=== PATIENT | male | born 1950 | race Caucasian/White ===

== ENCOUNTER 2020-05-03 09:36 | Outpatient (REF) | payer MEDICARE, OTHER, SELFPAY ==
[2020-05-03 10:33] LABS: MANUAL DIFF FLAG NO
[2020-05-03 10:40] LABS: Basophils Absolute Auto 0.1 X10*3/uL (0.0-0.2); Basophils Percent Auto 0.9 % (0-2); Eosinophils Absolute Auto 0.1 X10*3/uL (0.0-0.4); Eosinophils Percent Auto 1.7 % (0-4); Hemoglobin 14.6 g/dl (14.0-18.0); Imm Gran Abs Auto 0.02 X10*3/uL (0.00-0.03); Imm Gran Pct Auto 0.3 % (0.0-0.4); Lymphocytes Absolute Auto 2.3 X10*3/uL (1.2-4.9); Lymphocytes Percent Auto 36.7 % (20-40); Mean Corpuscular HGB Conc 33.2 g/dl (31.0-36.0); Mean Corpuscular Hemoglobin 29.8 pg (27.0-33.0); Mean Corpuscular Volume 89.8 fL (80-98); Mean Platelet Volume 10.4 fL (9.4-12.4); Monocytes Absolute Auto 0.4 X10*3/uL (0.1-1.2); Neutrophils Absolute Auto 3.4 X10*3/uL (2.0-8.3); Neutrophils Percent Auto 53.4 % (45-73); Platelet Count 224 X10*3/uL (160-400); Red Cell Distribution Width 12.8 % (11.0-16.0); White Blood Count 6.3 X10*3/uL (4.8-10.8)
[2020-05-03 11:08] LABS: Alanine Aminotransferase 26 U/L (0-40); Albumin Level 4.5 g/dL (3.5-5.0); Alkaline Phosphatase 112 U/L (39-117); Anion Gap 13 (12-20); Aspartate Amino Transferase 24 U/L (5-37); Bilirubin Total 0.4 mg/dL (0.0-1.0); Blood Urea Nitrogen 18 mg/dL (9-16); Calcium 9.5 mg/dL (8.4-10.2); Carbon Dioxide 30 mmol/L (22-29); Chloride 106 mmol/L (96-108); Cholesterol 114 mg/dL; Estimated Glomerular Filt Rate > 60; Glucose Random 217 mg/dL (60-115); HDL Cholesterol 31 mg/dL; LDL Cholesterol Calculated 40 mg/dl; Potassium 4.9 mmol/l (3.3-5.1); Sodium 144 mmol/L (135-145); Total Protein 7.2 g/dL (6.5-8.0); Triglycerides 219 mg/dL
[2020-05-03 11:14] LABS: Estimated Average Glucose 166 mg/dL; Hemoglobin A1c % 7.4 %
[2020-05-03 11:20] LABS: Thyroid Stimulating Hormone 1.36 mIU/mL (0.32-4.0)
== END 2020-05-03 09:37 | disposition home or self-care (01) ==
LOC: HO.LAB 09:36
PROVIDERS: PCP Internal Medicine; Visit Provider Internal Medicine
DX: Z00.01 Encounter for general adult medical examination with abnormal findings (principal); E11.9 Type 2 diabetes mellitus without complications; E78.00 Pure hypercholesterolemia, unspecified; F20.1 Disorganized schizophrenia; R80.0 Isolated proteinuria
CPT/HCPCS: 36415; 80053; 80061; 83036; 84443; 85025

== ENCOUNTER 2020-08-02 08:40 | Outpatient (REF) | payer MEDICARE, OTHER, SELFPAY ==
[2020-08-02 09:46] LABS: Estimated Average Glucose 169 mg/dL; Hemoglobin A1c % 7.5 %
[2020-08-02 10:07] LABS: Alanine Aminotransferase 28 U/L (0-40); Albumin Level 4.5 g/dL (3.5-5.0); Alkaline Phosphatase 85 U/L (39-117); Anion Gap 16 (12-20); Aspartate Amino Transferase 24 U/L (5-37); Bilirubin Total 0.6 mg/dL (0.0-1.0); Blood Urea Nitrogen 21 mg/dL (9-16); Calcium 9.2 mg/dL (8.4-10.2); Carbon Dioxide 24 mmol/L (22-29); Chloride 104 mmol/L (96-108); Estimated Glomerular Filt Rate > 60; Glucose Random 238 mg/dL (60-115); Potassium 4.3 mmol/l (3.3-5.1); Sodium 140 mmol/L (135-145); Total Protein 7.1 g/dL (6.5-8.0)
== END 2020-08-02 08:41 | disposition home or self-care (01) ==
LOC: HO.LAB 08:40
PROVIDERS: PCP Internal Medicine; Visit Provider Internal Medicine
DX: R80.0 Isolated proteinuria (principal); E11.65 Type 2 diabetes mellitus with hyperglycemia; E78.00 Pure hypercholesterolemia, unspecified; F20.89 Other schizophrenia
CPT/HCPCS: 36415; 80053; 83036

== ENCOUNTER → 2020-08-07 12:53 | Outpatient (BNVA) | payer MEDICARE, OTHER, SELFPAY | PROVIDERS: PCP Internal Medicine; Referring Provider Internal Medicine; Visit Provider Internal Medicine | DX: E11.65 Type 2 diabetes mellitus with hyperglycemia (principal); E78.5 Hyperlipidemia, unspecified; I10 Essential (primary) hypertension; Z79.4 Long term (current) use of insulin | CPT/HCPCS: 82947; 99202 ==

== ENCOUNTER → 2020-08-23 08:36 | Outpatient (BNVA) | payer MEDICARE, OTHER, SELFPAY | PROVIDERS: PCP Internal Medicine; Visit Provider Internal Medicine | DX: Z13.89 Encounter for screening for other disorder (principal) | CPT/HCPCS: Q3014 ==

== ENCOUNTER → 2020-09-08 11:50 | Outpatient (BNVA) | payer MEDICARE, OTHER, SELFPAY | PROVIDERS: PCP Internal Medicine; Visit Provider Dietitian, Registered ==

== ENCOUNTER 2020-10-31 09:48 | Outpatient (REF) | payer MEDICARE, OTHER, SELFPAY ==
[2020-10-31 11:05] LABS: Estimated Average Glucose 183 mg/dL
[2020-10-31 11:13] LABS: Alanine Aminotransferase 40 U/L (0-40); Albumin Level 4.6 g/dL (3.5-5.0); Alkaline Phosphatase 98 U/L (39-117); Anion Gap 13 (12-20); Aspartate Amino Transferase 27 U/L (5-37); Bilirubin Total 0.8 mg/dL (0.0-1.0); Blood Urea Nitrogen 17 mg/dL (9-16); Calcium 9.4 mg/dL (8.4-10.2); Carbon Dioxide 30 mmol/L (22-29); Chloride 102 mmol/L (96-108); Estimated Glomerular Filt Rate > 60; Glucose Random 260 mg/dL (60-115); Potassium 4.6 mmol/L (3.3-5.1); Sodium 140 mmol/L (135-145); Total Protein 7.3 g/dL (6.5-8.0)
== END 2020-10-31 09:49 | disposition home or self-care (01) ==
LOC: HO.LAB 09:48
PROVIDERS: PCP Internal Medicine; Visit Provider Internal Medicine
DX: E11.65 Type 2 diabetes mellitus with hyperglycemia (principal); H35.52 Pigmentary retinal dystrophy; R80.0 Isolated proteinuria; Z68.28 Body mass index [BMI] 28.0-28.9, adult; Z79.4 Long term (current) use of insulin; Z71.3 Dietary counseling and surveillance
CPT/HCPCS: 36415; 80053; 83036; 97803

== ENCOUNTER → 2020-11-06 09:53 | Outpatient (BNVA) | payer MEDICARE, OTHER, SELFPAY | PROVIDERS: PCP Internal Medicine; Visit Provider Internal Medicine | DX: E11.65 Type 2 diabetes mellitus with hyperglycemia (principal); I10 Essential (primary) hypertension; E78.5 Hyperlipidemia, unspecified; E04.9 Nontoxic goiter, unspecified; Z79.4 Long term (current) use of insulin | CPT/HCPCS: 82947; 99212 ==

== ENCOUNTER → 2021-02-07 09:07 | Outpatient (BNVA) | payer MEDICARE, OTHER, SELFPAY | PROVIDERS: PCP Internal Medicine; Visit Provider Internal Medicine ==

== ENCOUNTER → 2021-04-05 09:58 | Outpatient (BNVA) | payer MEDICARE, OTHER, SELFPAY | PROVIDERS: PCP Internal Medicine; Visit Provider Internal Medicine | DX: E11.65 Type 2 diabetes mellitus with hyperglycemia (principal); E78.5 Hyperlipidemia, unspecified; I10 Essential (primary) hypertension; E04.9 Nontoxic goiter, unspecified; Z79.4 Long term (current) use of insulin | CPT/HCPCS: 82947; 83036; 99212 ==

== ENCOUNTER 2021-04-17 09:20 | Outpatient (REF) | payer MEDICARE, OTHER, SELFPAY ==
--- NOTE | ~2021-04-17 | US_ITS ---
EXAMINATION: US THYROID CLINICAL INFORMATION: Goiter. Vitamin D deficiency COMPARISON: None TECHNIQUE: Linear transducer grayscale and color Doppler examination with attention to the region of the thyroid. Exam is limited due to low position of the thyroid gland. FINDINGS: SIZE: Measurements of the thyroid lobes and nodules are given in sagittal, anteroposterior and transverse dimensions respectively. Right Thyroid Lobe: 4.8 x 2.4 x 1.4 cm, volume 8.4 mL. Parenchyma: The gland echotexture is homogeneous. Thyroid vascularity is normal. Left Thyroid Lobe: 4.6 x 2.3 x 1.5 cm, volume 8.3 mL. Parenchyma: The gland echotexture is homogeneous. Thyroid vascularity is normal. Isthmus: 0.4 cm in maximum AP dimension. Estimated total number of nodules greater than or equal to 1 cm: 0. Industrial Staff Nurse nodules are described as follows: NODES: No lymphadenopathy is seen in the tissue surrounding the thyroid gland. US/US thyroid IMPRESSION: Limited but unremarkable exam.
== END 2021-04-17 09:21 | disposition home or self-care (01) ==
LOC: HO.US 09:20
PROVIDERS: PCP Internal Medicine; Visit Provider Internal Medicine
DX: E04.9 Nontoxic goiter, unspecified (principal); E55.9 Vitamin D deficiency, unspecified
CPT/HCPCS: 76536

== ENCOUNTER 2021-05-01 11:07 | Outpatient (REF) | payer MEDICARE, OTHER, SELFPAY ==
[2021-05-01 11:28] LABS: MANUAL DIFF FLAG NO
[2021-05-01 12:10] LABS: Basophils Absolute Auto 0.1 X10*3/uL (0.0-0.2); Eosinophils Absolute Auto 0.1 X10*3/uL (0.0-0.4); Eosinophils Percent Auto 1.8 % (0-4); Hematocrit 45.4 % (42-52); Hemoglobin 15.1 g/dl (14.0-18.0); Imm Gran Abs Auto 0.02 X10*3/uL (0.00-0.03); Imm Gran Pct Auto 0.3 % (0.0-0.4); Lymphocytes Absolute Auto 2.3 X10*3/uL (1.2-4.9); Lymphocytes Percent Auto 31.8 % (20-40); Mean Corpuscular HGB Conc 33.3 g/dl (31.0-36.0); Mean Corpuscular Hemoglobin 29.5 pg (27.0-33.0); Mean Corpuscular Volume 88.8 fL (80-98); Mean Platelet Volume 10.4 fL (9.4-12.4); Monocytes Absolute Auto 0.6 X10*3/uL (0.1-1.2); Monocytes Percent Auto 8.1 % (2-11); Neutrophils Absolute Auto 4.1 X10*3/uL (2.0-8.3); Platelet Count 220 X10*3/uL (160-400); Red Blood Count 5.11 X10*6/uL (4.60-5.80); Red Cell Distribution Width 12.5 % (11.0-16.0); White Blood Count 7.2 X10*3/uL (4.8-10.8)
[2021-05-01 12:21] LABS: Estimated Average Glucose 180 mg/dL; Hemoglobin A1c % 7.9 %
[2021-05-01 12:39] LABS: Alanine Aminotransferase 28 U/L (0-40); Albumin Level 4.8 g/dL (3.5-5.0); Alkaline Phosphatase 103 U/L (39-117); Anion Gap 17 (12-20); Aspartate Amino Transferase 25 U/L (5-37); Bilirubin Total 0.7 mg/dL (0.0-1.0); Blood Urea Nitrogen 15 mg/dL (9-16); Calcium 9.9 mg/dL (8.4-10.2); Carbon Dioxide 26 mmol/L (22-29); Chloride 102 mmol/L (96-108); Estimated Glomerular Filt Rate > 60; Glucose Random 168 mg/dL (60-115); Potassium 4.8 mmol/L (3.3-5.1); Sodium 140 mmol/L (135-145); Total Protein 7.6 g/dL (6.5-8.0)
[2021-05-01 13:00] LABS: Vitamin D 25-OH Total 13.4 ng/mL (>30)
[2021-05-01 14:21] LABS: Creatinine Urine 130.04 mg/dL; Microalbum/Creatinine Ratio Ur 23.8 ug/mg cr
[2021-05-02 12:16] LABS: LDL Cholesterol Direct 82 mg/dL (<100)
== END 2021-05-01 11:08 | disposition home or self-care (01) ==
LOC: HO.LAB 11:07
PROVIDERS: Internal Medicine; PCP Internal Medicine; Visit Provider Internal Medicine
DX: Z00.01 Encounter for general adult medical examination with abnormal findings (principal); E11.40 Type 2 diabetes mellitus with diabetic neuropathy, unspecified; E11.65 Type 2 diabetes mellitus with hyperglycemia; E78.00 Pure hypercholesterolemia, unspecified; H54.8 Legal blindness, as defined in USA; E55.9 Vitamin D deficiency, unspecified
CPT/HCPCS: 36415; 80053; 82043; 82306; 83036; 83721; 85025

== ENCOUNTER 2021-08-06 09:46 | Outpatient (REF) | payer MEDICARE, OTHER, SELFPAY ==
[2021-08-06 11:16] LABS: Estimated Average Glucose 160 mg/dL; Hemoglobin A1C 213.7082 umol/L; Hemoglobin A1c % 7.2 %
[2021-08-06 11:26] LABS: Alanine Aminotransferase 27 U/L (0-40); Albumin Level 4.5 g/dL (3.5-5.0); Alkaline Phosphatase 103 U/L (39-117); Anion Gap 13 (12-20); Aspartate Amino Transferase 24 U/L (5-37); Bilirubin Total 0.4 mg/dL (0.0-1.0); Blood Urea Nitrogen 16 mg/dL (9-16); Calcium 9.7 mg/dL (8.4-10.2); Carbon Dioxide 26 mmol/L (22-29); Chloride 107 mmol/L (96-108); Estimated Glomerular Filt Rate > 60; Glucose Random 135 mg/dL (60-115); Potassium 4.1 mmol/L (3.3-5.1); Sodium 142 mmol/L (135-145); Total Protein 7.2 g/dL (6.5-8.0)
== END 2021-08-06 09:47 | disposition home or self-care (01) ==
LOC: HO.LAB 09:46
PROVIDERS: Absent Provider Internal Medicine; PCP Internal Medicine; Visit Provider Internal Medicine
DX: E11.9 Type 2 diabetes mellitus without complications (principal); E78.00 Pure hypercholesterolemia, unspecified; H54.8 Legal blindness, as defined in USA; R80.0 Isolated proteinuria
CPT/HCPCS: 36415; 80053; 83036

== ENCOUNTER → 2021-08-09 09:13 | Outpatient (BNVA) | payer MEDICARE, OTHER, SELFPAY | PROVIDERS: PCP Internal Medicine; Visit Provider Nurse Practitioner Gerontology | DX: E11.65 Type 2 diabetes mellitus with hyperglycemia (principal); E78.5 Hyperlipidemia, unspecified; E55.9 Vitamin D deficiency, unspecified; I10 Essential (primary) hypertension; B35.3 Tinea pedis; Z79.4 Long term (current) use of insulin; Z79.84 Long term (current) use of oral hypoglycemic drugs | CPT/HCPCS: 82947; 99212 ==

== ENCOUNTER 2021-11-13 09:20 | Outpatient (REF) | payer MEDICARE, OTHER, SELFPAY ==
[2021-11-13 10:31] LABS: Estimated Average Glucose 140 mg/dL; Hemoglobin A1c % 6.5 %
[2021-11-13 11:06] LABS: Alanine Aminotransferase 24 U/L (0-40); Albumin Level 4.6 g/dL (3.5-5.0); Alkaline Phosphatase 87 U/L (39-117); Anion Gap 13 (12-20); Aspartate Amino Transferase 20 U/L (5-37); Bilirubin Total 0.8 mg/dL (0.0-1.0); Blood Urea Nitrogen 23 mg/dL (9-16); Calcium 9.7 mg/dL (8.4-10.2); Carbon Dioxide 28 mmol/L (22-29); Chloride 105 mmol/L (96-108); Estimated Glomerular Filt Rate > 60; Glucose Random 174 mg/dL (60-115); Potassium 4.4 mmol/L (3.3-5.1); Sodium 142 mmol/L (135-145); Total Protein 7.3 g/dL (6.5-8.0)
[2021-11-13 11:08] LABS: Vitamin D 25-OH Total 45.7 ng/mL (>30)
[2021-11-13 11:53] LABS: Prostate Specific Antigen 7.44 ng/mL (<0.05-4.0)
== END 2021-11-13 09:21 | disposition home or self-care (01) ==
LOC: HO.LAB 09:20
PROVIDERS: Absent Provider Internal Medicine; PCP Internal Medicine; Visit Provider Nurse Practitioner Gerontology
DX: Z12.5 Encounter for screening for malignant neoplasm of prostate (principal); E11.65 Type 2 diabetes mellitus with hyperglycemia; E55.9 Vitamin D deficiency, unspecified; E78.00 Pure hypercholesterolemia, unspecified; I10 Essential (primary) hypertension; R35.1 Nocturia; Z79.4 Long term (current) use of insulin
CPT/HCPCS: 36415; 80053; 82306; 83036; 84153

== ENCOUNTER → 2021-12-06 07:18 | Outpatient (BNVA) | payer MEDICARE, OTHER, SELFPAY | PROVIDERS: PCP Internal Medicine; Visit Provider Nurse Practitioner Gerontology | DX: E11.65 Type 2 diabetes mellitus with hyperglycemia (principal); E78.5 Hyperlipidemia, unspecified; E55.9 Vitamin D deficiency, unspecified; I10 Essential (primary) hypertension; Z79.4 Long term (current) use of insulin; Z79.84 Long term (current) use of oral hypoglycemic drugs | CPT/HCPCS: 82947; 99212 ==

== ENCOUNTER → 2022-03-08 08:47 | Outpatient (BNVA) | payer MEDICARE, SELFPAY | PROVIDERS: PCP Internal Medicine; Visit Provider Urology | DX: N32.0 Bladder-neck obstruction (principal); N40.1 Benign prostatic hyperplasia with lower urinary tract symptoms; N13.8 Other obstructive and reflux uropathy; R33.9 Retention of urine, unspecified; R97.20 Elevated prostate specific antigen [PSA] | CPT/HCPCS: 99202 ==

== ENCOUNTER 2022-04-30 07:36 | Day surgery (SDC) | payer MEDICARE, SELFPAY ==
--- NOTE | 2022-04-29 08:30 | HO.ANESPROP2 ---
Documented by User: Sonia Vaughn NP 04/29/22 08:31 HPI - Anesthesia Eval Consult details Narrative: 71yo M for Colonoscopy PMFSH Active Problems Active Problems: All Active Problems (Updated 03/08/22 @ 09:22 by Kike Eid MD) Bladder outlet obstruction (Acute) Elevated PSA (Acute) Tinea pedis of left foot (Acute) Goiter (Acute) Vitamin D deficiency (Acute) HLD (hyperlipidemia) (Acute) HTN (hypertension) (Acute) T2DM (type 2 diabetes mellitus) (Acute) Past Medical History Medical History Goiter HLD (hyperlipidemia) HTN (hypertension) Legally blind Schizophrenia T2DM (type 2 diabetes mellitus) Vitamin D deficiency Family History Family History Father Blindness Mother No problems noted. Surgical History Surgical History History of amputation of finger Social History Social History Alcohol intake: former Patient Tobacco Use Status: Former Tobacco user Quit Date: >3 yrs ago Cigarette Packs Per Day: 3 Years Smoked: 40 Use of substances other than those prescribed or required for medical reasons: No Are you DNR?: No Advance Directives: No Advance Directives Information Provided: Yes Meds Allergies Allergy/AdvReac Type Severity Reaction Status Date / Time No Known Allergies Allergy Verified 04/30/22 08:03 [No Known Allergies*] Home Medications Medication Instructions Recorded Confirmed Last Taken Type atorvastatin 40 mg tablet 40 mg PO DAILY 08/07/20 04/30/22 Unknown History escitalopram oxalate 10 mg tablet 10 mg PO DAILY 08/07/20 04/30/22 Unknown History lancets 30 gauge #100 ea 08/07/20 04/30/22 Unknown History lisinopril 2.5 mg tablet 2.5 mg PO DAILY 08/07/20 04/30/22 04/30/22 07:00 History metformin 1,000 mg tablet 1,000 mg PO BID 08/07/20 04/30/22 Unknown History pen needle, diabetic 32 gauge x #50 ea 08/07/20 04/30/22 Unknown History quetiapine 25 mg tablet 25 mg PO BEDTIME 08/07/20 04/30/22 Unknown History aspirin 81 mg tablet,delayed 81 mg PO DAILY 08/23/20 04/30/22 Unknown History release blood sugar diagnostic #10 ea 08/23/20 04/30/22 Unknown History blood-glucose meter #1 ea 08/23/20 04/30/22 Unknown History insulin glargine 100 unit/mL (3 24 unit subcut BEDTIME 08/09/21 04/30/22 Unknown History mL) subcutaneous pen losartan 25 mg tablet 25 mg PO DAILY 03/07/22 04/30/22 04/30/22 07:00 History Exam Exam Date and Time: April 29, 2022829 Pertinent Lab Results Pertinent Lab Results: Laboratory Tests 11/13/21 09:43 Sodium 142 Potassium 4.4 Chloride 105 Carbon Dioxide 28 BUN 23 H Creatinine 0.99 Assessment and Plan Assessment Anesthesia Assessment: Chart Reviewed Documented by User: Alba Villasenor MD 04/30/22 09:05 [facility] Past Medical History Medical History Goiter HLD (hyperlipidemia) HTN (hypertension) Legally blind Schizophrenia T2DM (type 2 diabetes mellitus) Vitamin D deficiency Functional capacity: independent ambulation Family History Family History Father Blindness Mother No problems noted. Family history of problems with anesthesia: No Surgical History Surgical History History of amputation of finger History of Problems with Anesthesia: No Social History Social History Alcohol intake: former Patient Tobacco Use Status: Former Tobacco user Quit Date: >3 yrs ago Cigarette Packs Per Day: 3 Years Smoked: 40 Use of substances other than those prescribed or required for medical reasons: No Are you DNR?: No Advance Directives: No Advance Directives Information Provided: Yes Meds Allergies Allergy/AdvReac Type Severity Reaction Status Date / Time No Known Allergies Allergy Verified 04/30/22 08:03 [No Known Allergies*] Home Medications Medication Instructions Recorded Confirmed Last Taken Type atorvastatin 40 mg tablet 40 mg PO DAILY 08/07/20 04/30/22 Unknown History escitalopram oxalate 10 mg tablet 10 mg PO DAILY 08/07/20 04/30/22 Unknown History lancets 30 gauge #100 ea 08/07/20 04/30/22 Unknown History lisinopril 2.5 mg tablet 2.5 mg PO DAILY 08/07/20 04/30/22 04/30/22 07:00 History metformin 1,000 mg tablet 1,000 mg PO BID 08/07/20 04/30/22 Unknown History pen needle, diabetic 32 gauge x #50 ea 08/07/20 04/30/22 Unknown History quetiapine 25 mg tablet 25 mg PO BEDTIME 08/07/20 04/30/22 Unknown History aspirin 81 mg tablet,delayed 81 mg PO DAILY 08/23/20 04/30/22 Unknown History release blood sugar diagnostic #10 ea 08/23/20 04/30/22 Unknown History blood-glucose meter #1 ea 08/23/20 04/30/22 Unknown History insulin glargine 100 unit/mL (3 24 unit subcut BEDTIME 08/09/21 04/30/22 Unknown History mL) subcutaneous pen losartan 25 mg tablet 25 mg PO DAILY 03/07/22 04/30/22 04/30/22 07:00 History Exam Airway Mallampati Class: III TM Dist: >3cm Neck ROM: Full Heart: RRR Lungs: cTA Assessment and Plan Final Anesthetic Review Family History of Problems with Anesthesia: No History of Problems with Anesthesia: No NPO: Yes ASA Class: II Final Preanesthetic Review: No Changes in Pt Med Stat, Meds/Allgs Chart Reviewed, Consent Obtained/Reviewed and Anes Risks/Benef Reviewed Patient Risk: Low Procedure Risk: Low Anesthetic Plan Anesthetic Plan: MAC: Disposition: Standard PACU
[2022-04-30 07:59] VITALS: BMI 28.6
[2022-04-30 08:36] VITALS: BP 105/71; PULSE 88; RESP 18; TEMP 36.8; O2SAT 99
[2022-04-30] MEDS: Lactated Ringers 1,000 ML 100 ML IVCONT (08:37)
[2022-04-30 08:38] LABS: Glucose, Whole Blood 104 mg/dL (60-115)
--- NOTE | 2022-04-30 09:06 | MHC.SHP ---
Pre-Procedural Eval Section A Date of Service: 04/30/22 Section B Chief Complaint: screening Details of Present Illness: screening Relevant Family History (Specify if Yes): No Relevant Social History: None Present Medications: see Short Stay Collaborative assessment Medical History: No relevant PMH History of Previous Operations: No relevant previous surgery Allergies: Allergies Allergy/AdvReac Type Severity Reaction Status Date / Time No Known Allergies Allergy Verified 04/30/22 08:03 [No Known Allergies*] Review of Systems Sugical H&P ROS: Negative: Constitution, Cardiovascular, Respiratory, Neurological, Psychiatric, Hem-Onc, Allergic/Immunologic, Gastrointestinal, Genitourinary, Musculoskeletal, Integumentary, Endocrine and Eyes/Ears/Nose/Throat Exam Surgical H&P Exam: Normal: HEENT, Normal: Heart, Normal: Lungs, Normal: Extremities, Normal: Abdomen, Normal: Skin and Normal: Neurological Plan Diagnosis/Plan: Unchanged I have reviewed the history and physical and performed a pertinent physical examination on my patient. No changes have occurred unless specified.
[2022-04-30 09:32] VITALS: BP 108/68; PULSE 83; RESP 16; TEMP 36.4; O2SAT 100
--- NOTE | 2022-04-30 09:36 | P.BOP_ITS ---
Brief Operative Note Date of Service: 04/30/22 Pre-op diagnosis: screening Post-op diagnosis: same Procedure: colonoscopy Surgeon: Chavez Cuellar Anesthesia: MAC Was an Automation Test Developer used for this Procedure?: No Estimated blood loss (mL): 2 Pathology: other Condition: stable Disposition: PACU
[2022-04-30 09:47] VITALS: BP 121/65; PULSE 85; RESP 18; TEMP 36.4; O2SAT 99
--- NOTE | 2022-04-30 10:06 | HO.POSTANES ---
Post Anesthesia Evaluation Post Anesthesia Evaluation Vital Signs: Vital Signs Temp Pulse Resp BP Pulse Ox O2 Del Method 04/30/22 09:47 97.5 F 85 18 121/65 99 Room Air 04/30/22 09:32 97.5 F 83 16 108/68 100 Room Air 04/30/22 08:36 98.3 F 88 18 105/71 99 Room Air Anesthesia: Monitored Mental Status: Awake (W) Pain Control: Satisfactory Nausea/Vomiting: None Hydration: Adequate Anesthesia-Related Issues: No Anes. Related Issues
--- NOTE | 2022-04-30 11:37 | OP_ITS ---
SURGEON: Chavez Cuellar MD INDICATIONS: Colon cancer screening. PREOPERATIVE DIAGNOSIS: POSTOPERATIVE DIAGNOSIS: PROCEDURE PERFORMED: Colonoscopy to the cecum with biopsy. ESTIMATED BLOOD LOSS: COMPLICATIONS: ANESTHESIA: Monitored anesthesia care. ASSISTANTS: SPECIMENS: DESCRIPTION OF PROCEDURE: History and physical performed. The procedure was performed on April 30, 2022. The risks and benefits of the procedure were explained to the patient. Informed consent was obtained. The patient was placed in the left lateral decubitus position. A digital rectal exam was performed and was found to be normal. The Olympus pediatric video colonoscope was introduced into the rectum and advanced to the cecum without difficulty. The cecum was identified by transillumination, palpation, and identification of ileocecal valve. Examination was performed. The scope was removed. He tolerated the procedure well and was taken to the recovery area in stable condition. FINDINGS: There was a large amount of liquid stool and undigested food material in the colon, which limited the sensitivity examination for detection of small polyps, particularly in the cecum, sigmoid colon, and rectum. Two polyps were identified, 1 in the right colon just above the ileocecal valve and 1 at the hepatic flexure. Both measured less than 5 mm, were removed with biopsy forceps. No other polyps were identified. Retroflexed examination was limited by retained stool. IMPRESSION: 1. Colon polyps. 2. Limited procedure due to poor prep. RECOMMENDATION: 1. Follow up the biopsy results. 2. Consider repeat colonoscopy in 6 to 12 months with a 2 day prep. MD KATIA Hays/NOHEMY / [id number]
== END 2022-04-30 10:55 | disposition home or self-care (01) ==
PROVIDERS: PCP Internal Medicine; Visit Provider Internal Medicine Gastroenterology
PROC: 0DJD8ZZ Inspection of Lower Intestinal Tract, Via Natural or Artificial Opening Endoscopic (ICD-10-PCS; CPT 45378; principal; 2022-04-30 08:50)
DX: Z12.11 Encounter for screening for malignant neoplasm of colon (principal); D12.2 Benign neoplasm of ascending colon; D12.3 Benign neoplasm of transverse colon; K59.00 Constipation, unspecified; I10 Essential (primary) hypertension; E11.9 Type 2 diabetes mellitus without complications; E55.9 Vitamin D deficiency, unspecified; N40.0 Benign prostatic hyperplasia without lower urinary tract symptoms; F03.90 Unspecified dementia, unspecified severity, without behavioral disturbance, psychotic disturbance, mood disturbance, and anxiety; E78.00 Pure hypercholesterolemia, unspecified; H35.52 Pigmentary retinal dystrophy; Z79.4 Long term (current) use of insulin; Z88.8 Allergy status to other drugs, medicaments and biological substances; Z87.891 Personal history of nicotine dependence
CPT/HCPCS: 45380; 82947; 88305

== ENCOUNTER 2022-05-14 09:54 | Outpatient (REF) | payer MEDICARE, SELFPAY ==
[2022-05-14 10:15] LABS: MANUAL DIFF FLAG NO
[2022-05-14 11:40] LABS: Alanine Aminotransferase 20 U/L (0-40); Albumin Level 4.7 g/dL (3.5-5.0); Alkaline Phosphatase 79 U/L (39-117); Anion Gap 18 (12-20); Aspartate Amino Transferase 24 U/L (5-37); Bilirubin Total 0.8 mg/dL (0.0-1.0); Blood Urea Nitrogen 16 mg/dL (9-16); Calcium 9.7 mg/dL (8.4-10.2); Carbon Dioxide 27 mmol/L (22-29); Chloride 101 mmol/L (96-108); Cholesterol 122 mg/dL; Estimated Glomerular Filt Rate > 60; Glucose Random 97 mg/dL (60-115); HDL Cholesterol 34 mg/dL; LDL Cholesterol Calculated 65 mg/dl; Potassium 4.6 mmol/L (3.3-5.1); Sodium 141 mmol/L (135-145); Total Protein 7.3 g/dL (6.5-8.0); Triglycerides 116 mg/dL
[2022-05-14 11:47] LABS: Basophils Absolute Auto 0.1 X10*3/uL (0.0-0.2); Basophils Percent Auto 0.8 % (0-2); Eosinophils Absolute Auto 0.1 X10*3/uL (0.0-0.4); Eosinophils Percent Auto 1.2 % (0-4); Hemoglobin 15.5 g/dl (14.0-18.0); Imm Gran Abs Auto 0.03 X10*3/uL (0.00-0.03); Imm Gran Pct Auto 0.4 % (0.0-0.4); Lymphocytes Absolute Auto 2.4 X10*3/uL (1.2-4.9); Lymphocytes Percent Auto 32.7 % (20-40); Mean Corpuscular HGB Conc 33.7 g/dl (31.0-36.0); Mean Corpuscular Hemoglobin 29.5 pg (27.0-33.0); Mean Corpuscular Volume 87.5 fL (80.0-98.0); Mean Platelet Volume 10.6 fL (9.4-12.4); Monocytes Absolute Auto 0.5 X10*3/uL (0.1-1.2); Monocytes Percent Auto 6.1 % (2-11); Neutrophils Absolute Auto 4.3 x10*3/uL (2.0-8.3); Neutrophils Percent Auto 58.8 % (45-73); Platelet Count 245 X10*3/uL (160-400); Red Blood Count 5.26 X10*6/uL (4.60-5.80); Red Cell Distribution Width 12.4 % (11.0-16.0); White Blood Count 7.4 X10*3/uL (4.8-10.8)
[2022-05-14 12:07] LABS: Prostate Specific Antigen 4.28 ng/mL (<0.05-4.0)
[2022-05-14 12:30] LABS: Estimated Average Glucose 148 mg/dL; Hemoglobin A1c % 6.8 %
[2022-05-14 12:43] LABS: Creatinine Urine 94.95 mg/dL; Microalbum/Creatinine Ratio Ur 9.4 ug/mg cr
[2022-05-14 12:48] LABS: Vitamin B12 353 pg/mL (200-900)
== END 2022-05-14 09:55 | disposition home or self-care (01) ==
LOC: HO.LAB 09:54
PROVIDERS: Absent Provider Internal Medicine; PCP Internal Medicine; Visit Provider Urology
DX: E11.9 Type 2 diabetes mellitus without complications (principal); E78.00 Pure hypercholesterolemia, unspecified; G47.00 Insomnia, unspecified; I10 Essential (primary) hypertension; R97.20 Elevated prostate specific antigen [PSA]; Z12.5 Encounter for screening for malignant neoplasm of prostate
CPT/HCPCS: 36415; 80053; 80061; 82043; 82607; 83036; 84153; 85025

== ENCOUNTER → 2022-07-10 11:03 | Outpatient (BNVA) | payer MEDICARE, SELFPAY | PROVIDERS: PCP Internal Medicine; Visit Provider Urology | DX: R97.20 Elevated prostate specific antigen [PSA] (principal); N40.1 Benign prostatic hyperplasia with lower urinary tract symptoms; N13.8 Other obstructive and reflux uropathy; R33.8 Other retention of urine | CPT/HCPCS: 99212 ==

== ENCOUNTER 2022-08-02 09:27 | Outpatient (REF) | payer MEDICARE, SELFPAY ==
[2022-08-02 10:46] LABS: Alanine Aminotransferase 22 U/L (0-40); Albumin Level 4.7 g/dL (3.5-5.0); Alkaline Phosphatase 85 U/L (39-117); Anion Gap 16 (12-20); Aspartate Amino Transferase 23 U/L (5-37); Bilirubin Total 0.5 mg/dL (0.0-1.0); Blood Urea Nitrogen 16 mg/dL (9-16); Calcium 9.7 mg/dL (8.4-10.2); Carbon Dioxide 26 mmol/L (22-29); Chloride 104 mmol/L (96-108); Estimated Glomerular Filt Rate > 60; Glucose Random 131 mg/dL (60-115); Potassium 4.5 mmol/L (3.3-5.1); Sodium 141 mmol/L (135-145); Total Protein 7.3 g/dL (6.5-8.0)
[2022-08-02 11:00] LABS: Estimated Average Glucose 154 mg/dL
== END 2022-08-02 09:28 | disposition home or self-care (01) ==
LOC: HO.LAB 09:27
PROVIDERS: PCP Internal Medicine; Visit Provider Internal Medicine
DX: Z00.00 Encounter for general adult medical examination without abnormal findings (principal); N40.1 Benign prostatic hyperplasia with lower urinary tract symptoms; E11.9 Type 2 diabetes mellitus without complications; E78.00 Pure hypercholesterolemia, unspecified
CPT/HCPCS: 36415; 80053; 83036

== ENCOUNTER 2022-10-08 10:32 | Day surgery (SDC) | payer MEDICARE, SELFPAY ==
--- NOTE | 2022-10-07 10:40 | HO.ANESPROP2 ---
Documented by User: Sonia Vaughn NP 10/07/22 10:41 HPI - Anesthesia Eval Consult details Narrative: 72yo M for Colonoscopy s/p colo 04/2022 with TIVA PMFSH Active Problems Active Problems: All Active Problems (Updated 08/27/22 @ 14:12 by Taylor Modi, RN) Tinea pedis of left foot (Acute) Elevated PSA (Acute) Bladder outlet obstruction (Acute) Goiter (Acute) Vitamin D deficiency (Acute) HLD (hyperlipidemia) (Acute) HTN (hypertension) (Acute) T2DM (type 2 diabetes mellitus) (Acute) Past Medical History Medical History (Updated 08/27/22 @ 14:12 by Taylor Modi RN) BPH (benign prostatic hyperplasia) Dementia Depression Goiter HLD (hyperlipidemia) HTN (hypertension) Legally blind Retinitis pigmentosa Rib fracture Schizophrenia T2DM (type 2 diabetes mellitus) Vitamin D deficiency Family History Family History Father Blindness Mother No problems noted. Family history of problems with anesthesia: No Surgical History Surgical History History of amputation of finger History of Problems with Anesthesia: No Social History Social History Alcohol intake: former Patient Tobacco Use Status: Former Tobacco user Quit Date: >3 yrs ago Cigarette Packs Per Day: 3 Years Smoked: 40 Use of substances other than those prescribed or required for medical reasons: No Are you DNR?: No Advance Directives: No Advance Directives Information Provided: Yes Meds Allergies Allergy/AdvReac Type Severity Reaction Status Date / Time No Known Allergies Allergy Verified 07/10/22 11:19 [No Known Allergies*] Home Medications Medication Instructions Recorded Confirmed Last Taken Type atorvastatin 40 mg tablet 40 mg PO DAILY 08/07/20 10/08/22 Unknown History escitalopram oxalate 10 mg tablet 10 mg PO DAILY 08/07/20 10/08/22 Unknown History lancets 30 gauge #100 ea 08/07/20 08/28/22 Unknown History lisinopril 2.5 mg tablet 2.5 mg PO DAILY 08/07/20 10/08/22 04/30/22 07:00 History metformin 1,000 mg tablet 1,000 mg PO BID 08/07/20 10/08/22 Unknown History pen needle, diabetic 32 gauge x #50 ea 08/07/20 08/28/22 Unknown History quetiapine 25 mg tablet 25 mg PO BEDTIME 08/07/20 10/08/22 Unknown History aspirin 81 mg tablet,delayed 81 mg PO DAILY 08/23/20 10/08/22 04/25/22 History release blood sugar diagnostic #10 ea 08/23/20 08/28/22 Unknown History blood-glucose meter #1 ea 08/23/20 08/28/22 Unknown History insulin glargine 100 unit/mL (3 24 unit subcut BEDTIME 08/09/21 10/08/22 Unknown History mL) subcutaneous pen losartan 25 mg tablet 25 mg PO DAILY 03/07/22 10/08/22 10/08/22 History cholecalciferol (vitamin D3) 25 25 mcg PO DAILY 07/10/22 10/08/22 Unknown History mcg (1,000 unit) tablet Exam Exam Date and Time: October 07, 2022 1040 Pertinent Lab Results Pertinent Lab Results: Laboratory Tests 05/14/22 08/02/22 10:14 09:46 WBC 7.4 Hgb 15.5 Hct 46.0 Plt Count 245 Sodium 141 Potassium 4.5 Chloride 104 Carbon Dioxide 26 BUN 16 Creatinine 0.95 Assessment and Plan Assessment Anesthesia Assessment: Chart Reviewed Final Anesthetic Review Family History of Problems with Anesthesia: No History of Problems with Anesthesia: No Documented by User: Baron Tracy MD 10/08/22 12:02 [facility] Past Medical History Medical History (Updated 08/27/22 @ 14:12 by Taylor Modi RN) BPH (benign prostatic hyperplasia) Dementia Depression Goiter HLD (hyperlipidemia) HTN (hypertension) Legally blind Retinitis pigmentosa Rib fracture Schizophrenia T2DM (type 2 diabetes mellitus) Vitamin D deficiency Family History Family History Father Blindness Mother No problems noted. Family history of problems with anesthesia: No Surgical History Surgical History History of amputation of finger History of Problems with Anesthesia: No Social History Social History Alcohol intake: former Patient Tobacco Use Status: Former Tobacco user Quit Date: >3 yrs ago Cigarette Packs Per Day: 3 Years Smoked: 40 Use of substances other than those prescribed or required for medical reasons: No Are you DNR?: No Advance Directives: No Advance Directives Information Provided: Yes Meds Allergies Allergy/AdvReac Type Severity Reaction Status Date / Time No Known Allergies Allergy Verified 07/10/22 11:19 [No Known Allergies*] Home Medications Medication Instructions Recorded Confirmed Last Taken Type atorvastatin 40 mg tablet 40 mg PO DAILY 08/07/20 10/08/22 Unknown History escitalopram oxalate 10 mg tablet 10 mg PO DAILY 08/07/20 10/08/22 Unknown History lancets 30 gauge #100 ea 08/07/20 08/28/22 Unknown History lisinopril 2.5 mg tablet 2.5 mg PO DAILY 08/07/20 10/08/22 04/30/22 07:00 History metformin 1,000 mg tablet 1,000 mg PO BID 08/07/20 10/08/22 Unknown History pen needle, diabetic 32 gauge x #50 ea 08/07/20 08/28/22 Unknown History quetiapine 25 mg tablet 25 mg PO BEDTIME 08/07/20 10/08/22 Unknown History aspirin 81 mg tablet,delayed 81 mg PO DAILY 08/23/20 10/08/22 04/25/22 History release blood sugar diagnostic #10 ea 08/23/20 08/28/22 Unknown History blood-glucose meter #1 ea 08/23/20 08/28/22 Unknown History insulin glargine 100 unit/mL (3 24 unit subcut BEDTIME 08/09/21 10/08/22 Unknown History mL) subcutaneous pen losartan 25 mg tablet 25 mg PO DAILY 03/07/22 10/08/22 10/08/22 History cholecalciferol (vitamin D3) 25 25 mcg PO DAILY 07/10/22 10/08/22 Unknown History mcg (1,000 unit) tablet Exam Airway Mallampati Class: II TM Dist: >3cm Neck ROM: Full Denture: Upper and Lower Heart: ok Lungs: ok Assessment and Plan Assessment Anesthesia Assessment: Anesthesia Plan Discussed and Chart Reviewed Final Anesthetic Review Family History of Problems with Anesthesia: No History of Problems with Anesthesia: No NPO: Yes ASA Class: IV Final Preanesthetic Review: No Changes in Pt Med Stat, Meds/Allgs Chart Reviewed, Consent Obtained/Reviewed and Anes Risks/Benef Reviewed Patient Risk: High Procedure Risk: Low Anesthetic Plan Anesthetic Plan: MAC: and Agree w/ Assess. and Plan Disposition: Standard PACU
[2022-10-08 10:45] VITALS: BMI 26.4
[2022-10-08 11:03] VITALS: BP 131/72; PULSE 89; RESP 16; TEMP 36.7; O2SAT 95
[2022-10-08] MEDS: Lactated Ringers 1,000 ML 100 ML IVCONT (11:17)
[2022-10-08 11:19] LABS: Glucose, Whole Blood 126 mg/dL (60-115)
--- NOTE | 2022-10-08 11:39 | MHC.SHP ---
Pre-Procedural Eval Section A Date of Service: 10/08/22 Section B Chief Complaint: screening Details of Present Illness: see H&P exam in Oct was limited by poor prep. repeat today with 2 day prep. Relevant Family History (Specify if Yes): No Relevant Social History: None Present Medications: see Short Stay Collaborative assessment Medical History: No relevant PMH History of Previous Operations: No relevant previous surgery Allergies: Allergies Allergy/AdvReac Type Severity Reaction Status Date / Time No Known Allergies Allergy Verified 07/10/22 11:19 [No Known Allergies*] Review of Systems Sugical H&P ROS: Negative: Constitution, Cardiovascular, Respiratory, Neurological, Psychiatric, Hem-Onc, Allergic/Immunologic, Gastrointestinal, Genitourinary, Musculoskeletal, Integumentary, Endocrine and Eyes/Ears/Nose/Throat Exam Surgical H&P Exam: Normal: HEENT, Normal: Heart, Normal: Lungs, Normal: Extremities, Normal: Abdomen, Normal: Skin and Normal: Neurological Plan Diagnosis/Plan: Unchanged I have reviewed the history and physical and performed a pertinent physical examination on my patient. No changes have occurred unless specified. Time Spent With Patient Time: Total time managing care of this patient today ____ minutes.
--- NOTE | 2022-10-08 12:17 | P.BOP_ITS ---
Brief Operative Note Date of Service: 10/08/22 Pre-op diagnosis: screening Post-op diagnosis: same Procedure: colonoscopy Surgeon: Chavez Cuellar Anesthesia: MAC Was an Pharmaceutical Representative used for this Procedure?: No Estimated blood loss (mL): 5 Pathology: other Condition: stable Disposition: PACU
[2022-10-08 12:22] VITALS: BP 72/45; PULSE 70; RESP 18; TEMP 36.1; O2SAT 93
[2022-10-08 12:37] VITALS: BP 93/54; PULSE 76; RESP 16; O2SAT 94
[2022-10-08 12:48] VITALS: BP 108/64; PULSE 70; RESP 17; TEMP 36.1; O2SAT 95
--- NOTE | 2022-10-08 22:42 | OP_ITS ---
SURGEON: Chavez Cuellar MD INDICATIONS: Colon cancer screening and inadequate prep in the last colonoscopy. This prep required a 2-day bowel prep. PREOPERATIVE DIAGNOSIS: POSTOPERATIVE DIAGNOSIS: PROCEDURE PERFORMED: ESTIMATED BLOOD LOSS: COMPLICATIONS: ANESTHESIA: ASSISTANTS: SPECIMENS: PROCEDURE: Colonoscopy to the terminal ileum with biopsy. PROCEDURE DESCRIPTION: A history and physical performed. The procedure was performed on 10/08/2022. The risks and benefits of the procedure were explained to the patient's healthcare proxy and informed consent was obtained. The patient was placed in the left lateral decubitus position. A digital rectal exam was performed and was found to be normal. The Olympus pediatric video colonoscope was introduced into the rectum and advanced to the cecum without difficulty. The cecum was identified by transillumination, palpation, and identification of ileocecal valve. Examination was performed. The scope was removed. He tolerated the procedure well and was returned to recovery area in stable condition. FINDINGS: The terminal ileum was examined and appeared normal. The visualized colonic mucosa was normal. The quality of the prep was good. There was some liquid stool left, which was washed and suctioned. Overall, the procedure was markedly improved from the patient's previous colonoscopy in the fall. Three polyps were identified and removed with biopsy forceps, all measured less than 5 mm. These were located at 65 cm. No other polyps were identified. Retroflexed examination was normal. IMPRESSION: Colon polyps. RECOMMENDATION: Follow up the biopsy results. MD KATIA Hays/CHARLIEL / [id number]
== END 2022-10-08 13:42 | disposition home or self-care (01) ==
PROVIDERS: PCP Internal Medicine; Visit Provider Internal Medicine Gastroenterology
PROC: 0DJD8ZZ Inspection of Lower Intestinal Tract, Via Natural or Artificial Opening Endoscopic (ICD-10-PCS; CPT 45378; principal; 2022-10-08 11:10)
DX: Z12.11 Encounter for screening for malignant neoplasm of colon (principal); D12.4 Benign neoplasm of descending colon; N40.0 Benign prostatic hyperplasia without lower urinary tract symptoms; E11.9 Type 2 diabetes mellitus without complications; E78.00 Pure hypercholesterolemia, unspecified; I10 Essential (primary) hypertension; H35.52 Pigmentary retinal dystrophy; F03.90 Unspecified dementia, unspecified severity, without behavioral disturbance, psychotic disturbance, mood disturbance, and anxiety; Z79.4 Long term (current) use of insulin; Z79.82 Long term (current) use of aspirin; Z79.899 Other long term (current) drug therapy; Z88.8 Allergy status to other drugs, medicaments and biological substances; Z87.891 Personal history of nicotine dependence
CPT/HCPCS: 45380; 82947; 88305

== ENCOUNTER 2022-10-28 10:08 | Outpatient (REF) | payer MEDICARE, SELFPAY ==
[2022-10-28 11:56] LABS: Estimated Average Glucose 154 mg/dL
[2022-10-28 12:44] LABS: Alanine Aminotransferase 23 U/L (0-40); Albumin Level 4.4 g/dL (3.5-5.0); Alkaline Phosphatase 90 U/L (39-117); Anion Gap 16 (12-20); Aspartate Amino Transferase 20 U/L (5-37); Bilirubin Total 0.8 mg/dL (0.0-1.0); Blood Urea Nitrogen 17 mg/dL (9-16); Calcium 9.3 mg/dL (8.4-10.2); Carbon Dioxide 26 mmol/L (22-29); Chloride 103 mmol/L (96-108); Estimated Glomerular Filt Rate > 60; Glucose Random 128 mg/dL (60-115); Potassium 4.5 mmol/L (3.3-5.1); Sodium 140 mmol/L (135-145); Total Protein 6.7 g/dL (6.5-8.0)
== END 2022-10-28 10:09 | disposition home or self-care (01) ==
LOC: HO.LAB 10:08
PROVIDERS: PCP Internal Medicine; Visit Provider Internal Medicine
DX: E11.9 Type 2 diabetes mellitus without complications (principal); E78.00 Pure hypercholesterolemia, unspecified; F20.1 Disorganized schizophrenia; H35.52 Pigmentary retinal dystrophy
CPT/HCPCS: 36415; 80053; 83036

== ENCOUNTER 2023-01-02 10:29 | Outpatient (REF) | payer MEDICARE, SELFPAY ==
[2023-01-02 11:46] LABS: Prostate Specific Antigen 4.99 ng/mL (<0.05-4.0)
== END 2023-01-02 10:30 | disposition home or self-care (01) ==
LOC: HO.LAB 10:29
PROVIDERS: PCP Internal Medicine; Visit Provider Urology
DX: R97.20 Elevated prostate specific antigen [PSA] (principal); Z12.5 Encounter for screening for malignant neoplasm of prostate
CPT/HCPCS: 36415; 84153

== ENCOUNTER → 2023-01-08 14:23 | Outpatient (BNVA) | payer MEDICARE, SELFPAY | PROVIDERS: PCP Internal Medicine; Visit Provider Urology | DX: R97.20 Elevated prostate specific antigen [PSA] (principal) | CPT/HCPCS: Q3014 ==

== ENCOUNTER 2023-01-30 10:19 | Outpatient (REF) | payer MEDICARE, SELFPAY ==
[2023-01-30 11:19] LABS: Alanine Aminotransferase 29 U/L (0-40); Albumin Level 4.3 g/dL (3.5-5.0); Alkaline Phosphatase 89 U/L (39-117); Anion Gap 13 (12-20); Aspartate Amino Transferase 22 U/L (5-37); Bilirubin Total 0.8 mg/dL (0.0-1.0); Blood Urea Nitrogen 15 mg/dL (9-16); Calcium 9.8 mg/dL (8.4-10.2); Carbon Dioxide 29 mmol/L (22-29); Chloride 105 mmol/L (96-108); Estimated Glomerular Filt Rate > 60; Glucose Random 147 mg/dL (60-115); Potassium 4.7 mmol/L (3.3-5.1); Sodium 142 mmol/L (135-145); Total Protein 7.3 g/dL (6.5-8.0)
== END 2023-01-30 10:20 | disposition home or self-care (01) ==
LOC: HO.LAB 10:19
PROVIDERS: PCP Internal Medicine; Visit Provider Internal Medicine
DX: E11.40 Type 2 diabetes mellitus with diabetic neuropathy, unspecified (principal); E78.00 Pure hypercholesterolemia, unspecified; F20.1 Disorganized schizophrenia; H35.52 Pigmentary retinal dystrophy
CPT/HCPCS: 36415; 80053; 83036

== ENCOUNTER 2023-02-13 07:29 | Outpatient (REF) | payer MEDICARE, OTHER, SELFPAY ==
[2023-02-13 07:43] VITALS: BMI 28.4
[2023-02-13 07:44] VITALS: BP 134/61; PULSE 88; RESP 16; TEMP 36.4; O2SAT 97
--- NOTE | 2023-02-13 08:27 | W.PM.OPN ---
Operative Note Operative Note Date of Service: 02/13/23 Narrative: Preoperative diagnosis: Elevated PSA Postoperative diagnosis: Elevated PSA Procedure: 1. transrectal ultrasound measurement of prostate 2. transrectal ultrasound-guided pudendal nerve block 3. transrectal ultrasound-guided prostate biopsy 12 core Surgeon: Dr. Kike Eid Anesthetic: Local Indications for procedure: Elevated PSA 4.99 on finasteride Procedure: After informed consent was verified, the patient was brought into the procedure area and lay left-hand side down on the table. Patient identity confirmed. Perioperative antibiotics confirmed. Safety pause time out performed. BROOKS performed to dilate rectal sphincter - firm Iodine 15cc with Gel was placed per rectum Ultrasound probe was placed per rectum The prostate was measured in 3 dimensions Total volume equals 20 gm No cystic structures were noted Calcifications were noted at the surgical margin The prostate was otherwise homogeneous in nature An ultrasound-guided pudendal nerve block was performed using 10 cc of 1% lidocaine. 8 cc was placed at the base and 2 cc of the apex. A 12 core biopsy was performed with 6 cores each side. Two cores were taken at the apex, mid and base. Cores were spaced between lateral and medial. He tolerated the procedure well. Was able to ambulate to bathroom after 5 minutes. Printed instructions regarding antibiotic use and common side effects such as low-grade temperature, potential infection and bleeding were given Pathology: 12 core prostate biopsy.
[2023-02-13 08:30] VITALS: BP 132/65; PULSE 85; RESP 16; O2SAT 95
== END 2023-02-13 07:30 | disposition home or self-care (01) ==
LOC: HO.MS 07:29
PROVIDERS: PCP Internal Medicine; Visit Provider Urology
PROC: (CPT 55700; principal; 2023-02-13 08:00)
DX: C61 Malignant neoplasm of prostate (principal); R97.20 Elevated prostate specific antigen [PSA]
CPT/HCPCS: 55700; 76942; 88305; 88344

== ENCOUNTER → 2023-02-13 07:29 | Outpatient (BNV) | payer MEDICARE, SELFPAY | PROVIDERS: PCP Internal Medicine; Visit Provider Urology | DX: R97.20 Elevated prostate specific antigen [PSA] (principal) | CPT/HCPCS: 55700; 76942 ==

== ENCOUNTER 2023-02-19 08:16 | Outpatient (RCR) | payer MEDICARE, SELFPAY | END 2023-02-20 16:02 | disposition home or self-care (01) | LOC: HO.WCC 08:16 | PROVIDERS: PCP Internal Medicine; Visit Provider Surgery | DX: Z09 Encounter for follow-up examination after completed treatment for conditions other than malignant neoplasm (principal); E11.9 Type 2 diabetes mellitus without complications; I10 Essential (primary) hypertension; F03.90 Unspecified dementia, unspecified severity, without behavioral disturbance, psychotic disturbance, mood disturbance, and anxiety; Z79.4 Long term (current) use of insulin; Z79.84 Long term (current) use of oral hypoglycemic drugs; Z79.899 Other long term (current) drug therapy; Z87.891 Personal history of nicotine dependence; Z86.31 Personal history of diabetic foot ulcer | CPT/HCPCS: 99212 ==

== ENCOUNTER 2023-02-25 11:31 | Outpatient (AMB) | payer MEDICARE, SELFPAY ==
--- NOTE | 2023-02-25 11:31 | A.OFFVIS_ITS ---
Intake Intake Visit Reasons: Biopsy results Intake Note: Patient is present for Telephone biopsy result Urology Med: Finasteride Antibiotic Allergy: none Blood Thinner: aspirin [facility] Allergies No Known Allergies [No Known Allergies*] Allergy (Verified 02/25/23 11:32) HPI HPI Comments History of Present Illness Details Shari pleasant male. [place] speaker. He is a patient Dr. Burden. He is seen for the following urologic conditions - prostate cancer - lower urinary tract symptoms [place] translation provided by qualified manager medical affairs Telemedicine Evaluation 15 min Consultation DoxDediServe Oscar Video attempted Prostate cancer shown on biopsy Recommend complete staging with bone scan and prostate MRI Given age and other comorbidities would recommend external beam radiation with 6 month course of hormones Will organized GnRH injection and imaging Prostate Cancer - grade group 3, multi core Diagnosis of 02/16 Dr. Eid PSA at diagnosis 5.0 on finasteride pT1c TRUS 20gm [place] score:? 7 (4+3) (right base medial), 7 (3+4) (left mid medial and lateral, left apex lateral, right mid medial and lateral, right apex medial), 6 (3+3) (left base lateral, left apex medial, right base lateral) Tumor quantitation: Number cores positive:10 Total number of cores: 14 % of tissue involved: 40% (Cores 15-80%) Periprostatic fat inv.:Not identified Seminal vesicle inv.:Not identified Perineural inv.: Present Lymphovascular invasion: Not identified Elevated PSA PSA 11/16 7.44, 05/18 4.3, 01/17 5.0 Background diabetes PFSH Medical History BPH (benign prostatic hyperplasia) Dementia Depression Goiter HLD (hyperlipidemia) HTN (hypertension) Legally blind Retinitis pigmentosa Rib fracture Schizophrenia T2DM (type 2 diabetes mellitus) Vitamin D deficiency Surgical History History of amputation of finger Family History Father Blindness Mother No problems noted. Social History Alcohol intake: former Patient Tobacco Use Status: Former Tobacco user Quit Date: >3 yrs ago Cigarette Packs Per Day: 3 Years Smoked: 40 Review of Systems Const All systems reviewed & are unremarkable except as noted in HPI and below Reports no additional complaints Resp Reports no additional complaints GI Reports no additional complaints Reports as per HPI Musc Reports no additional complaints Physical Exam Telemedicine evaluation Appropriate responses Regular breathing rate and rhythm HEENT Head: Yes normal to inspection Ears: hearing grossly normal bilaterally Eyes General: appearance normal, both eyes and all related structures Neck Neck: Yes normal visual inspection Chest Chest palpation & inspection: normal inspection of the chest Resp Effort & Inspection: normal respiratory effort and able to speak in complete sentences Assessment & Plan Assessment & Plan (1) Prostate cancer: Code(s): C61 - Malignant neoplasm of prostate Plan Imaging 3 week follow-up GnRH Orders: Orders MR pelvis wo/w con 2 Weeks C61 - Malignant neoplasm of prostate NM bone scan whole body Today C61 - Malignant neoplasm of prostate, C79.51 - Secondary malignant neoplasm of bone Patient Instructions: Imaging studies, laboratory and physical exam results were discussed and reviewed in detail. No major barriers to patient understanding were identified. An opportunity to ask questions regarding the treatment plan was provided. All questions were answered. The patient expressed understanding and agreement with the above treatment plan. The patient is aware they should contact our office by phone for worsening of their current condition or the appearance of new urologic symptoms. Compliance is encouraged with any medications and followup testing that is ordered. It is a privilege to participate in the urologic care of your patient. If you have any questions or concerns regarding treatment for the above conditions, or other urologic issues, please do not hesitate to contact me. The office telephone contact is [phone]. This note is constructed using voice recognition software. While every effort has been made to ensure accuracy museum exhibit designer errors may have been included. Yours sincerely, Dr Kike Eid MD, [facility] - Urology Providers of Expert, Compassionate Care for the Genitourinary System Telehealth Telehealth Location of provider rendering services: practice address Location of patient: address on file Patient Identification confirmed using: Name, : Yes Telehealth method: video Patient verbally consented to treatment: Yes Patient verbally consented to billing insurance company: Yes Patient informed of any privacy concerns related to visit: Yes Coding Level of Care Code Tele Est Pt Level 4 (86389) Diagnoses Prostate cancer C61
== END 2023-02-25 12:08 | disposition home or self-care (01) ==
LOC: HO.HUSH 11:31
PROVIDERS: PCP Internal Medicine; Visit Provider Urology
DX: C61 Malignant neoplasm of prostate (principal)
CPT/HCPCS: 99213

== ENCOUNTER → 2023-02-25 11:31 | Outpatient (BNVA) | payer MEDICARE, SELFPAY | PROVIDERS: PCP Internal Medicine; Visit Provider Urology | DX: C61 Malignant neoplasm of prostate (principal) | CPT/HCPCS: Q3014 ==

== ENCOUNTER 2023-04-18 14:56 | Outpatient (AMB) | payer MEDICARE, SELFPAY ==
--- NOTE | 2023-04-18 15:05 | A.OFFVIS_ITS ---
Intake Intake Visit Reasons: GnRH/MRI/bone scan(Eligard approved) Intake Note: pt here for eligard injection meds - finasteride, levofloxacin [facility] Allergies - NKA Education Technician Required: No Cream Separator Operator: Cream Separator Operator Present Allergies No Known Allergies [No Known Allergies*] Allergy (Verified 04/18/23 15:10) Medication List - Last Reconciled 04/18/23 by Kike Eid MD aspirin 81 mg PO DAILY atorvastatin 40 mg PO DAILY blood sugar diagnostic As directed blood-glucose meter As directed cholecalciferol (vitamin D3) 50 mcg PO DAILY 30 days cholecalciferol (vitamin D3) 25 mcg PO DAILY clotrimazole 1% (Athlete's Foot (clotrimazole)) 1 appl topical BID escitalopram oxalate 10 mg PO DAILY finasteride 5 mg PO DAILY 90 days flash glucose scanning reader (FreeStyle Radha 2 [place]) As directed flash glucose sensor (FreeStyle Radha 2 Sensor kit) As directed every 2 weeks insulin glargine 24 units subcut BEDTIME insulin lispro 6 units for breakfast, 8 units for lunch and dinner subcut 3 times a day; lancets As directed levofloxacin 500 mg PO daily 3 days lisinopril 2.5 mg PO DAILY losartan 25 mg PO DAILY metformin 1,000 mg PO BID pen needle, diabetic As directed quetiapine 25 mg PO BEDTIME quetiapine 50 mg PO BEDTIME HPI HPI Comments History of Present Illness Details Shari pleasant male. Mexican speaker. He is a patient Dr. Burden. He is seen for the following urologic conditions - prostate cancer - lower urinary tract symptoms Mexican translation provided by qualified medical authorization specialist Discussion regarding MRI No evidence of extracapsular extension or ness disease GnRH today Radiology oncology referral Would be suitable candidate for [facility] Prostate Cancer - 02/16 - Grade Group 3, multi core PSA 4.99 Diagnosis of 02/16 Dr. Eid PSA at diagnosis 5.0 on finasteride pT1c TRUS 20gm Rl score:? 7 (4+3) (right base medial), 7 (3+4) (left mid medial and lateral, left apex lateral, right mid medial and lateral, right apex medial), 6 (3+3) (left base lateral, left apex medial, right base lateral) Tumor quantitation: Number cores positive:10 Total number of cores: 14 % of tissue involved: 40% (Cores 15-80%) Periprostatic fat inv.:Not identified Seminal vesicle inv.:Not identified Perineural inv.: Present Lymphovascular invasion: Not identified MRI: Small prostate, motion artifact, heterogeneous. No evidence of ness disease Elevated PSA PSA 11/16 7.44, 05/18 4.3, 01/17 5.0 Background diabetes PFSH Medical History Rib fracture Retinitis pigmentosa Dementia Depression BPH (benign prostatic hyperplasia) Goiter Vitamin D deficiency Schizophrenia Legally blind HLD (hyperlipidemia) HTN (hypertension) T2DM (type 2 diabetes mellitus) Surgical History History of amputation of finger Family History Father Blindness Mother No problems noted. Social History Alcohol intake: former Patient Tobacco Use Status: Former Tobacco user Quit Date: >3 yrs ago Cigarette Packs Per Day: 3 Years Smoked: 40 Review of Systems Const Denies chills and Denies fever(s) Card Reports no additional complaints and Denies syncope Resp Denies cough GI Denies abdominal pain and Denies heartburn Reports as per HPI and Denies change in libido Neuro Denies syncope Psych Denies change in libido Endo Denies change in libido Physical Exam Const General: cooperative, healthy appearing, comfortable and no acute distress Orientation/consciousness: patient oriented x3 HEENT Face and sinus: Yes normal facial exam Mouth: moist mucous membranes Neck Neck: Yes normal visual inspection, Yes full ROM and Yes trachea midline Chest Chest palpation & inspection: normal inspection of the chest Resp Effort & Inspection: normal respiratory effort, able to speak in complete sentences and no respiratory distress GI Inspection: Yes normal to inspection Back/Spine/Pelvis Cervical Spine: normal cervical lordosis Thoracic/Lumbar Spine: thoracic and lumbar spine normal to inspection Skin General skin exam: no rashes or lesions noted Neuro General: patient oriented x3, gait normal, tone normal and moves all extremities Extrem General: Yes normal to inspection and Yes capillary refill normal Office Meds Eligard (6 month) 45 mg (6 month) subcutaneous syringe Performing Provider: Kike Eid MD Performing Location: [facility] [place] [facility] Administered by: Antwan Garcia LPN on 04/18/23 15:29 Dose Route Admin Location Dispensed Lot Number Expiration Date [facility] Vice President Of Contracts 45 mg subcut left arm 45 mg [id number] 07/28/24 85341-721-24 [employer]. Assessment & Plan Assessment & Plan (1) Prostate cancer: Code(s): C61 - Malignant neoplasm of prostate Plan Radiation oncology referral Four week follow-up Possible [facility] Orders: Orders AMB Leuprolide Injection - Practice Supplied Today C61 - Malignant neoplasm of prostate Referrals Radiation Oncology Referral C61 - Malignant neoplasm of prostate Medications: New Eligard (6 month) (leuprolide acetate (6 month)) 45 mg subcut ONCE 1 ea 0RF NS C61 - Malignant neoplasm of prostate Patient Instructions: Imaging studies, laboratory and physical exam results were discussed and reviewed in detail. No major barriers to patient understanding were identified. An opportunity to ask questions regarding the treatment plan was provided. All questions were answered. The patient expressed understanding and agreement with the above treatment plan. The patient is aware they should contact our office by phone for worsening of their current condition or the appearance of new urologic symptoms. Compliance is encouraged with any medications and followup testing that is ordered. It is a privilege to participate in the urologic care of your patient. If you have any questions or concerns regarding treatment for the above conditions, or other urologic issues, please do not hesitate to contact me. The office telephone contact is [phone]. This note is constructed using voice recognition software. While every effort has been made to ensure accuracy manager publishing errors may have been included. Yours sincerely, Dr Kike Eid MD, [facility] - Urology Providers of Expert, Compassionate Care for the Genitourinary System Coding Level of Care Code Est Pt Level 4 (34179) Diagnoses Prostate cancer C61
== END 2023-04-18 15:39 | disposition home or self-care (01) ==
PROVIDERS: PCP Internal Medicine; Visit Provider Urology
DX: C61 Malignant neoplasm of prostate (principal)
CPT/HCPCS: 99214

== ENCOUNTER → 2023-04-18 14:56 | Outpatient (BNVA) | payer MEDICARE, OTHER, SELFPAY | PROVIDERS: PCP Internal Medicine; Visit Provider Urology | DX: C61 Malignant neoplasm of prostate (principal) | CPT/HCPCS: 96402; 99212; J9217 ==

== ENCOUNTER → 2023-04-24 10:37 | Outpatient (REF) | payer MEDICARE, OTHER, SELFPAY ==
--- NOTE | ~2023-04-24 | NM_ITS ---
EXAMINATION: NM BONE SCAN OF THE WHOLE BODY CLINICAL INFORMATION: Malignant neoplasm of prostate. COMPARISON: MRI of the pelvis done on 03/06/2023. TECHNIQUE: Multiple gamma scintillation camera images of the whole body were performed 2.5 hours following the intravenous administration of 30 mCi Tc-99m MDP. The radiotracer was injected through left hand superficial vein. The patient's bladder was full at the time of the examination however, was not able to empty the bladder. FINDINGS: In the head, no suspicious focal lesion. In the thoracic cage and upper extremities, linear increased radiotracer activity is present within the left mid posterior eighth rib. Focal increased radiotracer activity is also present within the left upper posterior hemithoracic ribs. The findings are concerning for metastatic disease. Increased radiotracer activities at both shoulder and sternoclavicular joint likely represent arthritic changes. In the spine, multifocal increased radiotracer activities are present at the lower cervical, and mid to lower thoracic and the entire lumbar spine, may represent degenerative spondylosis versus metastasis or combination thereof. In the pelvis, no discrete focal abnormality. In the lower extremities, no discrete focal abnormality. No other definite bony abnormalities are noted. The urinary bladder and faint visualization of both kidneys are noted. NM/NM bone scan whole body IMPRESSION: Multifocal tracer avid disease involving the left thoracic cage suspicious for metastatic disease. Multifocal tracer avidity involving the spine may represent degenerative spondylosis versus metastases or combination thereof. A follow-up PSMA PET/CT study may be considered for further full detail evaluation, if clinically appropriate.
== END ==
LOC: HO.NUCMED 10:37
PROVIDERS: PCP Internal Medicine; Visit Provider Urology
DX: C61 Malignant neoplasm of prostate (principal); C79.51 Secondary malignant neoplasm of bone
CPT/HCPCS: 78306; A9503

== ENCOUNTER 2023-04-30 10:21 | Outpatient (REF) | payer MEDICARE, SELFPAY ==
[2023-04-30 11:46] LABS: Estimated Average Glucose 143 mg/dL; Hemoglobin A1c % 6.6 % (<6.0)
[2023-04-30 12:13] LABS: Alanine Aminotransferase 28 U/L (0-40); Albumin Level 4.5 g/dL (3.5-5.0); Alkaline Phosphatase 84 U/L (39-117); Anion Gap 15 (12-20); Aspartate Amino Transferase 25 U/L (5-37); Bilirubin Total 0.7 mg/dL (0.0-1.0); Blood Urea Nitrogen 17 mg/dL (9-16); Calcium 9.8 mg/dL (8.4-10.2); Carbon Dioxide 25 mmol/L (22-29); Chloride 104 mmol/L (96-108); Estimated Glomerular Filt Rate > 60; Glucose Random 120 mg/dL (60-115); Potassium 4.3 mmol/L (3.3-5.1); Sodium 140 mmol/L (135-145); Total Protein 7.2 g/dL (6.5-8.0)
== END 2023-04-30 10:22 | disposition home or self-care (01) ==
LOC: HO.LAB 10:21
PROVIDERS: PCP Internal Medicine; Visit Provider Internal Medicine
DX: E11.40 Type 2 diabetes mellitus with diabetic neuropathy, unspecified (principal); E11.65 Type 2 diabetes mellitus with hyperglycemia; S90.821S Blister (nonthermal), right foot, sequela
CPT/HCPCS: 36415; 80053; 83036

== ENCOUNTER 2023-05-13 13:18 | Outpatient (AMB) | payer MEDICARE, SELFPAY ==
--- NOTE | 2023-05-13 13:18 | A.OFFVIS_ITS ---
Intake Intake Visit Reasons: 4W Bone Scan(Set)-solomon islander Intake Note: Patient is present today with his Son Myles for Telephone Bone Scan: Urology Med: Finasteride Antibiotic Allergy: none Blood Thinner: aspirin [facility] Manager Metrology Required: No Accompanied by: SonRafat Bueno Allergies No Known Allergies [No Known Allergies*] Allergy (Verified 05/13/23 13:20) Medication List - Last Reconciled 05/13/23 by Kike Eid MD aspirin 81 mg PO DAILY atorvastatin 40 mg PO DAILY blood sugar diagnostic As directed blood-glucose meter As directed cholecalciferol (vitamin D3) 50 mcg PO DAILY 30 days cholecalciferol (vitamin D3) 25 mcg PO DAILY clotrimazole 1% (Athlete's Foot (clotrimazole)) 1 appl topical BID escitalopram oxalate 10 mg PO DAILY finasteride 5 mg PO DAILY 90 days flash glucose scanning reader (FreeStyle Radha 2 [place]) As directed flash glucose sensor (FreeStyle Radha 2 Sensor kit) As directed every 2 weeks insulin glargine 24 units subcut BEDTIME insulin lispro 6 units for breakfast, 8 units for lunch and dinner subcut 3 times a day; lancets As directed levofloxacin 500 mg PO daily 3 days lisinopril 2.5 mg PO DAILY losartan 25 mg PO DAILY metformin 1,000 mg PO BID pen needle, diabetic As directed quetiapine 25 mg PO BEDTIME quetiapine 50 mg PO BEDTIME HPI HPI Comments History of Present Illness Details Shari pleasant male. Jamaican speaker. He is a patient Dr. Burden. He is seen for the following urologic conditions - prostate cancer - lower urinary tract symptoms Jamaican translation provided by qualified manager of medical Telemedicine Evaluation 15 min Consultation Doximity Oscar Video attempted Bone Scan with question of positive spinal disease - recommend PET-CT with PSMA Has Radiology oncology referral Would be suitable candidate for [facility] if PET-CT negative or will need hormone therapy There is data on treatment of primary lesion in metastatic setting - Maximal Androgen Blockade (GnRH, AA, abiraterone) Prostate Cancer - 02/16 - Grade Group 3, multi core PSA 4.99 GnRH 04/02/23 Diagnosis of 02/16 Dr. Eid PSA at diagnosis 5.0 on finasteride pT1c TRUS 20gm Rl score:? 7 (4+3) (right base medial), 7 (3+4) (left mid medial and lateral, left apex lateral, right mid medial and lateral, right apex medial), 6 (3+3) (left base lateral, left apex medial, right base lateral) Tumor quantitation: Number cores positive:10 Total number of cores: 14 % of tissue involved: 40% (Cores 15-80%) Periprostatic fat inv.:Not identified Seminal vesicle inv.:Not identified Perineural inv.: Present Lymphovascular invasion: Not identified MRI: Small prostate, motion artifact, heterogeneous. No evidence of ness disease Bone Scan: Multifocal tracer avid disease involving the left thoracic cage suspicious for metastatic disease Needs PET-CT with PSMA to evaluate spinal disease Elevated PSA PSA 11/16 7.44, 05/18 4.3, 01/17 5.0 Background diabetes PFSH Medical History Rib fracture Retinitis pigmentosa Dementia Depression BPH (benign prostatic hyperplasia) Goiter Vitamin D deficiency Schizophrenia Legally blind HLD (hyperlipidemia) HTN (hypertension) T2DM (type 2 diabetes mellitus) Surgical History History of amputation of finger Family History Father Blindness Mother No problems noted. Social History Alcohol intake: former Patient Tobacco Use Status: Former Tobacco user Quit Date: >3 yrs ago Cigarette Packs Per Day: 3 Years Smoked: 40 Review of Systems Const All systems reviewed & are unremarkable except as noted in HPI and below Reports no additional complaints Resp Reports no additional complaints GI Reports no additional complaints Reports as per HPI Musc Reports no additional complaints Physical Exam Telemedicine evaluation Appropriate responses Regular breathing rate and rhythm HEENT Head: Yes normal to inspection Ears: hearing grossly normal bilaterally Eyes General: appearance normal, both eyes and all related structures Neck Neck: Yes normal visual inspection Chest Chest palpation & inspection: normal inspection of the chest Resp Effort & Inspection: normal respiratory effort and able to speak in complete sentences Assessment & Plan Assessment & Plan (1) Prostate cancer: Code(s): C61 - Malignant neoplasm of prostate Plan PET-CT with follow-up Orders: Orders PET CT fusion skull to thigh Today C61 - Malignant neoplasm of prostate Patient Instructions: Imaging studies, laboratory and physical exam results were discussed and reviewed in detail. No major barriers to patient understanding were identified. An opportunity to ask questions regarding the treatment plan was provided. All questions were answered. The patient expressed understanding and agreement with the above treatment plan. The patient is aware they should contact our office by phone for worsening of their current condition or the appearance of new urologic symptoms. Compliance is encouraged with any medications and followup testing that is ordered. It is a privilege to participate in the urologic care of your patient. If you have any questions or concerns regarding treatment for the above conditions, or other urologic issues, please do not hesitate to contact me. The office telephone contact is [phone]. This note is constructed using voice recognition software. While every effort has been made to ensure accuracy design architect errors may have been included. Yours sincerely, Dr Kike Eid MD, [facility] - Urology Providers of Expert, Compassionate Care for the Genitourinary System Telehealth Telehealth Location of provider rendering services: practice address Location of patient: address on file Patient Identification confirmed using: Name, : Yes Telehealth method: video Patient verbally consented to treatment: Yes Patient verbally consented to billing insurance company: Yes Patient informed of any privacy concerns related to visit: Yes Coding Level of Care Code Tele Est Pt Level 4 (21547) Diagnoses Prostate cancer C61
== END 2023-05-13 15:10 | disposition home or self-care (01) ==
LOC: HO.HUSH 13:18
PROVIDERS: PCP Internal Medicine; Visit Provider Urology
DX: C61 Malignant neoplasm of prostate (principal)
CPT/HCPCS: 99214

== ENCOUNTER → 2023-05-13 13:18 | Outpatient (BNVA) | payer MEDICARE, SELFPAY | PROVIDERS: PCP Internal Medicine; Visit Provider Urology ==

== ENCOUNTER 2023-06-02 18:50 | Emergency (ER) | payer MEDICARE, OTHER, SELFPAY ==
--- NOTE | ~2023-06-02 | XR_ITS ---
EXAMINATION: XR PELVIS CLINICAL INFORMATION: Pain. COMPARISON: None available. TECHNIQUE: AP view of the pelvis. FINDINGS: The bone mineralization is within normal limits. There is minimal hip degenerative change with mild subchondral sclerosis and mild osteophyte formation. There is no acute fracture. There is lower lumbar disc degenerative change. XR/XR pelvis 1-2V IMPRESSION: No acute osseous abnormality.
--- NOTE | ~2023-06-02 | XR_ITS ---
EXAMINATION: XR LUMBOSACRAL SPINE CLINICAL INFORMATION: Pain COMPARISON: None available. TECHNIQUE: Three views of the lumbosacral spine. FINDINGS: Extensive multilevel degenerative changes are seen with osteophyte formation. I do not appreciate any acute superimposed fracture or spondylolisthesis. Vertebral body heights and disc heights are preserved. Bowel gas pattern unremarkable. XR/XR lumbar spine 2-3V IMPRESSION: Extensive multilevel degenerative changes but no acute fracture or spondylolisthesis.
[2023-06-02 20:28] VITALS: BP 162/75; PULSE 83; RESP 18; TEMP 36.6; O2SAT 98; BMI 29.9
--- NOTE | 2023-06-02 20:29 | ED_ITS ---
HPI - General Adult General Chief complaint: Back Pain/Injury Stated complaint: lower right back pain unable to walk Time Seen by Provider: 06/02/23 22:19 Related Data Home Medications Medication Instructions Recorded Confirmed atorvastatin 40 mg tablet 40 mg PO DAILY 08/07/20 05/13/23 escitalopram oxalate 10 mg tablet 10 mg PO DAILY 08/07/20 05/13/23 lancets 30 gauge #100 ea 08/07/20 05/13/23 lisinopril 2.5 mg tablet 2.5 mg PO DAILY 08/07/20 05/13/23 metformin 1,000 mg tablet 1,000 mg PO BID 08/07/20 05/13/23 pen needle, diabetic 32 gauge x #50 ea 08/07/20 05/13/23 quetiapine 25 mg tablet 25 mg PO BEDTIME 08/07/20 05/13/23 aspirin 81 mg tablet,delayed 81 mg PO DAILY 08/23/20 05/13/23 release blood sugar diagnostic #10 ea 08/23/20 05/13/23 blood-glucose meter #1 ea 08/23/20 05/13/23 insulin glargine 100 unit/mL (3 24 unit subcut BEDTIME 08/09/21 05/13/23 mL) subcutaneous pen losartan 25 mg tablet 25 mg PO DAILY 03/07/22 05/13/23 cholecalciferol (vitamin D3) 25 25 mcg PO DAILY 07/10/22 05/13/23 mcg (1,000 unit) tablet quetiapine 50 mg tablet 50 mg PO BEDTIME 02/25/23 05/13/23 Previous Rx's Medication Instructions Recorded clotrimazole 1 % topical cream 1 appl topical BID #15 grams 08/09/21 (Athlete's Foot (clotrimazole)) insulin lispro 100 unit/mL See Rx Instructions subcut TID #15 08/09/21 subcutaneous pen mL flash glucose scanning reader #1 ea 12/06/21 (FreeStyle Radha 2 [place]) flash glucose sensor (FreeStyle #2 ea 12/06/21 Radha 2 Sensor kit) cholecalciferol (vitamin D3) 50 50 mcg PO DAILY 30 days #30 caps 06/11/22 mcg (2,000 unit) capsule levofloxacin 500 mg tablet 500 mg PO daily 3 days #3 tabs 01/08/23 finasteride 5 mg tablet 5 mg PO DAILY 90 days #90 tabs 01/13/23 morphine 15 mg immediate release 15 mg PO Q8H PRN pain #15 tabs 06/02/23 tablet Allergies Allergy/AdvReac Type Severity Reaction Status Date / Time No Known Allergies Allergy Verified 05/13/23 13:20 [No Known Allergies*] [facility] Past Medical History Medical History Rib fracture Retinitis pigmentosa Dementia Depression BPH (benign prostatic hyperplasia) Goiter Vitamin D deficiency Schizophrenia Legally blind HLD (hyperlipidemia) HTN (hypertension) T2DM (type 2 diabetes mellitus) Surgical History History of amputation of finger Family History Family History Father Blindness Mother No problems noted. Social History Social History Alcohol intake: former Patient Tobacco Use Status: Former Tobacco user Quit Date: >3 yrs ago Cigarette Packs Per Day: 3 Years Smoked: 40 Use of substances other than those prescribed or required for medical reasons: No Advance Directives: No Advance Directives Information Provided: Yes Physical Exam ED Vital Signs: Vital Signs - 24 hr 06/02/23 20:28 Temperature 97.9 F Pulse Rate 83 Respiratory Rate 18 Blood Pressure 162/75 H Pulse Oximetry 98 Oxygen Delivery Method Room Air BMI result Body Mass Index 29.9 Course Course Course Narrative: RME- 72-year-old male presents for evaluation of atraumatic right lower back pain that is worse over last 2 days. He reports that he has been unable to stand today. Plan for labs, UA, x-ray of the lumbar spine. Medications Administered Discontinued Medications Generic Name Dose Route Start Last Admin Trade Name Freq PRN Reason Stop Dose Admin Morphine Sulfate 15 mg 06/02/23 22:43 06/02/23 23:47 Morphine Sulfate Immed Release 15 Mg Tablet PO 06/02/23 22:44 15 mg ONCE ONE Administration Medical Decision Making Lab Data 06/02/23 22:14 06/02/23 22:14 Labs: Lab Results 06/02/23 Range/Units 22:14 WBC 9.7 (4.8-10.8) X10*3/uL RBC 4.96 (4.60-5.80) X10*6/uL Hgb 14.3 (14.0-18.0) g/dl Hct 42.8 (42.0-52.0) % MCV 86.3 (80.0-98.0) fL MCH 28.8 (27.0-33.0) pg MCHC 33.4 (31.0-36.0) g/dl RDW 12.6 (11.0-16.0) % Plt Count 218 (160-400) X10*3/uL MPV 9.6 (9.4-12.4) fL Immature Gran % (Auto) 0.3 (0.0-0.4) % Neut % (Auto) 78.8 H (45-73) % Lymph % (Auto) 14.7 L (20-40) % [place] % (Auto) 5.1 (2-11) % Eos % (Auto) 0.4 (0-4) % Baso % (Auto) 0.7 (0-2) % Lymph # (Auto) 1.4 (1.2-4.9) X10*3/uL [place] # (Auto) 0.5 (0.1-1.2) X10*3/uL Eos # (Auto) 0.0 (0.0-0.4) X10*3/uL Baso # (Auto) 0.1 (0.0-0.2) X10*3/uL Abs Immat Gran (auto) 0.03 (0.00-0.03) X10*3/uL Absolute Neuts (auto) 7.7 (2.0-8.3) x10*3/uL Absolute Nucleated RBC 0.000 (0.0-0.012) X10*3/uL Nucleated RBC % (auto) 0.0 (0.0-0.2) /100WBC Sodium 138 (135-145) mmol/L Potassium 4.8 (3.3-5.1) mmol/L Chloride 104 (96-108) mmol/L Carbon Dioxide 25 (22-29) mmol/L Anion Gap 14 (12-20) BUN 21 H (9-16) mg/dL Creatinine 0.84 (0.5-1.4) mg/dL Estim Creat Clear Calc 80.7 Estimated GFR > 60 Random Glucose 167 H (60-115) mg/dL Calcium 9.9 (8.4-10.2) mg/dL Total Bilirubin 0.5 (0.0-1.0) mg/dL AST 25 (5-37) U/L ALT 25 (0-40) U/L Alkaline Phosphatase 94 (39-117) U/L Total Protein 7.6 (6.5-8.0) g/dL Albumin 4.6 (3.5-5.0) g/dL Lipase 69 (8-78) U/L Discharge Plan Discharge Clinical Impression: Back pain Patient Disposition: Home, Self-Care Instructions: Back Pain (ED) Additional Instructions: Take pain medication as prescribed Follow with PCP Prescriptions: New morphine 15 mg tablet 15 mg PO Q8H PRN (Reason: pain) Qty: 15 0RF Rx Instructions: Partial Fill upon patient request. No Action cholecalciferol (vitamin D3) 50 mcg (2,000 unit) capsule 50 mcg PO DAILY 30 Days Qty: 30 1RF finasteride 5 mg tablet 5 mg PO DAILY 90 Days Qty: 90 1RF escitalopram oxalate 10 mg tablet 10 mg PO DAILY metformin 1,000 mg tablet 1,000 mg PO BID atorvastatin 40 mg tablet 40 mg PO DAILY quetiapine 25 mg tablet 25 mg PO BEDTIME lisinopril 2.5 mg tablet 2.5 mg PO DAILY (DME) lancets 30 gauge misc See Rx Instructions .ROUTE .MEDSUPPLY Qty: 100 Rx Instructions: As directed (DME) pen needle, diabetic 32 gauge x 5/32 needle See Rx Instructions .ROUTE TID Qty: 50 Rx Instructions: As directed insulin glargine 100 unit/mL (3 mL) insulin pen 24 unit subcut BEDTIME (DME) OneTouch Verio test strips Strip See Rx Instructions .ROUTE .MEDSUPPLY Qty: 10 Rx Instructions: As directed (DME) blood-glucose meter Misc See Rx Instructions .ROUTE .MEDSUPPLY Qty: 1 Rx Instructions: As directed aspirin 81 mg tablet,delayed release (DR/EC) 81 mg PO DAILY insulin lispro 100 unit/mL insulin pen See Rx Instructions subcut TID Qty: 15 3RF Rx Instructions: 6 units for breakfast, 8 units for lunch and dinner subcut 3 times a day; clotrimazole [Athlete's Foot (clotrimazole)] 1 % cream 1 appl topical BID Qty: 15 3RF Rx Instructions: apply for 10 days. May repeat if issue recurrs. losartan 25 mg tablet 25 mg PO DAILY (DME) FreeStyle Radha 2 [place] Misc See Rx Instructions .ROUTE .MEDSUPPLY Qty: 1 0RF Rx Instructions: As directed (DME) FreeStyle Radha 2 Sensor Kit See Rx Instructions .ROUTE .MEDSUPPLY Qty: 2 11RF Rx Instructions: As directed every 2 weeks cholecalciferol (vitamin D3) 25 mcg (1,000 unit) tablet 25 mcg PO DAILY levofloxacin 500 mg tablet 500 mg PO daily 3 Days Qty: 3 0RF Rx Instructions: take 1 tablet day before procedure, 1 tablet day of procedure and 1 tablet day after procedure quetiapine 50 mg tablet 50 mg PO BEDTIME Interventions: ED Discharge Assessment Last Done: 06/02/23 23:50 Discharge Date/Time: 06/02/23 23:50
[2023-06-02 22:19] LABS: MANUAL DIFF FLAG NO
[2023-06-02 22:22] LABS: Basophils Absolute Auto 0.1 X10*3/uL (0.0-0.2); Basophils Percent Auto 0.7 % (0-2); Eosinophils Percent Auto 0.4 % (0-4); Hematocrit 42.8 % (42.0-52.0); Hemoglobin 14.3 g/dl (14.0-18.0); Imm Gran Abs Auto 0.03 X10*3/uL (0.00-0.03); Imm Gran Pct Auto 0.3 % (0.0-0.4); Lymphocytes Absolute Auto 1.4 X10*3/uL (1.2-4.9); Lymphocytes Percent Auto 14.7 % (20-40); Mean Corpuscular HGB Conc 33.4 g/dl (31.0-36.0); Mean Corpuscular Hemoglobin 28.8 pg (27.0-33.0); Mean Corpuscular Volume 86.3 fL (80.0-98.0); Mean Platelet Volume 9.6 fL (9.4-12.4); Monocytes Absolute Auto 0.5 X10*3/uL (0.1-1.2); Monocytes Percent Auto 5.1 % (2-11); Neutrophils Absolute Auto 7.7 x10*3/uL (2.0-8.3); Neutrophils Percent Auto 78.8 % (45-73); Platelet Count 218 X10*3/uL (160-400); Red Blood Count 4.96 X10*6/uL (4.60-5.80); Red Cell Distribution Width 12.6 % (11.0-16.0); White Blood Count 9.7 X10*3/uL (4.8-10.8)
[2023-06-02 22:25] VITALS: BP 140/66; PULSE 80; RESP 19; TEMP 36.8; O2SAT 97
[2023-06-02 22:35] LABS: Alanine Aminotransferase 25 U/L (0-40); Albumin Level 4.6 g/dL (3.5-5.0); Alkaline Phosphatase 94 U/L (39-117); Anion Gap 14 (12-20); Aspartate Amino Transferase 25 U/L (5-37); Bilirubin Total 0.5 mg/dL (0.0-1.0); Blood Urea Nitrogen 21 mg/dL (9-16); Calcium 9.9 mg/dL (8.4-10.2); Carbon Dioxide 25 mmol/L (22-29); Chloride 104 mmol/L (96-108); Creatinine Clr Calc Pharmacy 80.7; Estimated Glomerular Filt Rate > 60; Glucose Random 167 mg/dL (60-115); Lipase 69 U/L (8-78); Potassium 4.8 mmol/L (3.3-5.1); Sodium 138 mmol/L (135-145); Total Protein 7.6 g/dL (6.5-8.0)
--- NOTE | 2023-06-02 23:05 | PC.NURSE ---
Pt was brought back via wheelchair, pt AOx3, pt reporting 10/10 constant pulsating right lower back pain that radiates to both legs, pt states he cant stand and barely can sit. Pt denies burnign with urination. Pt is legally blind and walks with cane normal at home, pt and family at bedside has been given gingerale, and update on plan of care.
[2023-06-02] MEDS: Morphine Sulfate Immed Release 15 MG TABLET PO (23:47)
--- NOTE | 2024-03-16 01:31 | ED.BACK ---
HPI - Back Pain/Injury General Chief Complaint: Back Pain/Injury Stated Complaint: lower right back pain unable to walk Time Seen by Provider: 06/02/23 22:19 Source: patient Mode of arrival: ambulatory Limitations: no limitations History of Present Illness ED Provider: simone VALDEZ Narrative: 72-year-old male presents for evaluation of atraumatic right lower back pain that is worse over last 2 days. No bladder bowel involvement no paresthesia in the sacral area Related Data Home Medications ?Medication ?Instructions ?Recorded ?Confirmed atorvastatin 40 mg tablet 40 mg PO DAILY 08/07/20 05/13/23 lancets 30 gauge #100 ea 08/07/20 05/13/23 pen needle, diabetic 32 gauge x #50 ea 08/07/20 05/13/23 aspirin 81 mg tablet,delayed 81 mg PO DAILY 08/23/20 05/13/23 release blood sugar diagnostic #10 ea 08/23/20 05/13/23 blood-glucose meter #1 ea 08/23/20 05/13/23 escitalopram oxalate 10 mg tablet 10 mg PO DAILY 07/28/23 07/28/23 finasteride 5 mg tablet 5 mg PO DAILY 07/28/23 07/28/23 insulin lispro 100 unit/mL 8 unit subcut TID 07/28/23 07/28/23 subcutaneous pen (Humalog KwikPen (U-100) Insulin) losartan 25 mg tablet 25 mg PO DAILY 07/28/23 07/28/23 metformin 1,000 mg tablet 1,000 mg PO BID 07/28/23 07/28/23 quetiapine 50 mg tablet 50 mg PO BEDTIME 07/28/23 07/28/23 Previous Rx's ?Medication ?Instructions ?Recorded flash glucose scanning reader #1 ea 12/06/21 (FreeStyle Radha 2 [place]) flash glucose sensor (FreeStyle #2 ea 12/06/21 Radha 2 Sensor kit) cholecalciferol (vitamin D3) 50 50 mcg PO DAILY 30 days #30 caps 06/11/22 mcg (2,000 unit) capsule insulin glargine 100 unit/mL (3 32 unit (0.32 mL) subcut BEDTIME 11/12/23 mL) subcutaneous pen (Lantus #1 mL Solostar U-100 Insulin) insulin lispro 100 unit/mL See Protocol subcut QIDACHS #1 mL 11/12/23 subcutaneous solution (Admelog U-100 Insulin lispro) prednisone 20 mg tablet 40 mg (2 x 20 mg) PO DAILY #4 tabs 11/12/23 valacyclovir 1 gram tablet 1,000 mg PO Q8H #5 tabs 11/12/23 Allergies Allergy/AdvReac Type Severity Reaction Status Date / Time No Known Allergies Allergy Verified 08/14/23 09:41 Review of Systems Review of Systems: Yes all other systems are reviewed and are negative [facility] Past Medical History Medical History Legally blind Schizoaffective disorder Dementia Rib fracture Retinitis pigmentosa Dementia Depression BPH (benign prostatic hyperplasia) Goiter Vitamin D deficiency Schizophrenia Legally blind HLD (hyperlipidemia) HTN (hypertension) T2DM (type 2 diabetes mellitus) Surgical History History of amputation of finger Family History Family History Father Blindness Mother No problems noted. Social History Social History Household Members: Caregiver Housing: House Alcohol intake: former Comment: sitter at bedside Patient Tobacco Use Status: Former Tobacco user Cigarette Packs Per Day: 3 Years Smoked: 40 Advance Directives Date on File: 08/12/23 service: No Physical Exam Vital Signs: Vital Signs: Last Vital Signs Temp 98.2 F 06/02/23 22:25 Pulse 80 06/02/23 22:25 Resp 19 06/02/23 22:25 BP 140/66 H 06/02/23 22:25 Pulse Ox 97 06/02/23 22:25 O2 Del Method Room Air 06/02/23 22:25 BMI result Body Mass Index 29.9 Appearance: Alert. Oriented X3. No acute distress. Eyes: PERRLA, No Nystagmus ENT: Pharynx normal. Oral Mucosa moist Neck: Normal inspection. Neck supple. CVS: Normal heart rate and rhythm. Pulses normal. Respiratory: No respiratory distress. Equal air entry bilateral, no wheezing/rales/rhonchi Abdomen: Soft and nontender. Bowel sounds are present, no mass palpable, no CVA tenderness back: Diffuse tenderness no focal spinal tenderness SLR negative sacral sensation is normal Skin: Skin warm and dry. Normal skin color. Normal skin turgor. Extremities: No lower extremity edema. No calf tenderness Neuro: Oriented X 3. No motor deficit. No sensory deficit.No cerebellar signs , cranial nerves II-XII intact Medications Administered Discontinued Medications Generic Name Dose Route Start Last Admin Trade Name Freq PRN Reason Stop Dose Admin Morphine Sulfate 15 mg 06/02/23 22:43 06/02/23 23:47 Morphine Sulfate Immed Release 15 Mg Tablet PO 06/02/23 22:44 15 mg ONCE ONE Administration Medical Decision Making Medical Decision Making [facility] Narrative: Patient with minor lumbar strain advised to take pain medication follow with PCP Lab Data 06/02/23 22:14 06/02/23 22:14 Labs: Lab Results 06/02/23 Range/Units 22:14 WBC 9.7 (4.8-10.8) X10*3/uL RBC 4.96 (4.60-5.80) X10*6/uL Hgb 14.3 (14.0-18.0) g/dl Hct 42.8 (42.0-52.0) % MCV 86.3 (80.0-98.0) fL MCH 28.8 (27.0-33.0) pg MCHC 33.4 (31.0-36.0) g/dl RDW 12.6 (11.0-16.0) % Plt Count 218 (160-400) X10*3/uL MPV 9.6 (9.4-12.4) fL Immature Gran % (Auto) 0.3 (0.0-0.4) % Neut % (Auto) 78.8 H (45-73) % Lymph % (Auto) 14.7 L (20-40) % [place] % (Auto) 5.1 (2-11) % Eos % (Auto) 0.4 (0-4) % Baso % (Auto) 0.7 (0-2) % Lymph # (Auto) 1.4 (1.2-4.9) X10*3/uL [place] # (Auto) 0.5 (0.1-1.2) X10*3/uL Eos # (Auto) 0.0 (0.0-0.4) X10*3/uL Baso # (Auto) 0.1 (0.0-0.2) X10*3/uL Abs Immat Gran (auto) 0.03 (0.00-0.03) X10*3/uL Absolute Neuts (auto) 7.7 (2.0-8.3) x10*3/uL Absolute Nucleated RBC 0.000 (0.0-0.012) X10*3/uL Nucleated RBC % (auto) 0.0 (0.0-0.2) /100WBC Sodium 138 (135-145) mmol/L Potassium 4.8 (3.3-5.1) mmol/L Chloride 104 (96-108) mmol/L Carbon Dioxide 25 (22-29) mmol/L Anion Gap 14 (12-20) BUN 21 H (9-16) mg/dL Creatinine 0.84 (0.5-1.4) mg/dL Estim Creat Clear Calc 80.7 Estimated GFR > 60 Random Glucose 167 H (60-115) mg/dL Calcium 9.9 (8.4-10.2) mg/dL Total Bilirubin 0.5 (0.0-1.0) mg/dL AST 25 (5-37) U/L ALT 25 (0-40) U/L Alkaline Phosphatase 94 (39-117) U/L Total Protein 7.6 (6.5-8.0) g/dL Albumin 4.6 (3.5-5.0) g/dL Lipase 69 (8-78) U/L Discharge Plan Discharge Clinical Impression: Back pain Patient Disposition: Home, Self-Care Instructions: Back Pain (ED) Additional Instructions: Take pain medication as prescribed Follow with PCP Prescriptions: No Action cholecalciferol (vitamin D3) 50 mcg (2,000 unit) capsule 50 mcg PO DAILY 30 Days Qty: 30 1RF metformin 1,000 mg tablet 1,000 mg PO BID losartan 25 mg tablet 25 mg PO DAILY finasteride 5 mg tablet 5 mg PO DAILY insulin lispro [Humalog KwikPen Insulin] 100 unit/mL insulin pen 8 unit subcut TID escitalopram oxalate 10 mg tablet 10 mg PO DAILY quetiapine 50 mg tablet 50 mg PO BEDTIME insulin glargine [Lantus Solostar U-100 Insulin] 100 unit/mL (3 mL) insulin pen 32 unit subcut BEDTIME Qty: 1 0RF valacyclovir 1 gram Tablet 1,000 mg PO Q8H Qty: 5 0RF prednisone 20 mg Tablet 40 mg PO DAILY Qty: 4 0RF insulin lispro [Admelog U-100 Insulin lispro] 100 unit/mL Solution See Protocol subcut QIDACHS Qty: 1 0RF Protocol: Insulin Correction Scale Less than or equal to 110 ---- Give (units): 0 111 to 150 Give (units): 0 151 to 200 Give (units): 2 201 to 250 Give (units): 4 251 to 300 Give (units): 6 301 to 350 Give (units): 10 Greater than 350 Give (units): 12 Call MD if Blood Glucose > : 350 atorvastatin 40 mg tablet 40 mg PO DAILY (DME) lancets 30 gauge misc See Rx Instructions .ROUTE .MEDSUPPLY Qty: 100 Rx Instructions: As directed (DME) pen needle, diabetic 32 gauge x 5/32 needle See Rx Instructions .ROUTE TID Qty: 50 Rx Instructions: As directed (DME) blood sugar diagnostic Strip See Rx Instructions .ROUTE .MEDSUPPLY Qty: 10 Rx Instructions: As directed (DME) blood-glucose meter Misc See Rx Instructions .ROUTE .MEDSUPPLY Qty: 1 Rx Instructions: As directed aspirin 81 mg tablet,delayed release (DR/EC) 81 mg PO DAILY (DME) FreeStyle Radha 2 [place] Misc See Rx Instructions .ROUTE .MEDSUPPLY Qty: 1 0RF Rx Instructions: As directed (DME) FreeStyle Radha 2 Sensor Kit See Rx Instructions .ROUTE .MEDSUPPLY Qty: 2 11RF Rx Instructions: As directed every 2 weeks Interventions: ED Discharge Assessment Last Done: 06/02/23 23:50 Discharge Date/Time: 06/02/23 23:50 Print Language: Chinese
== END 2023-06-02 23:50 | disposition home or self-care (01) ==
PROVIDERS: Physician Assistant; Emergency Provider Internal Medicine; PCP Internal Medicine
DX: M54.50 Low back pain, unspecified (principal); R10.2 Pelvic and perineal pain; Z79.899 Other long term (current) drug therapy
CPT/HCPCS: 36415; 72100; 72170; 80053; 83690; 85025; 99283; 99284

== ENCOUNTER 2023-07-26 13:50 | Inpatient (IN) | payer MEDICARE, SELFPAY ==
--- NOTE | ~2023-07-26 | CT_ITS ---
EXAMINATION: CT HEAD WITHOUT CONTRAST CLINICAL INFORMATION: Dementia. COMPARISON: CT head from 07/03/2018. TECHNIQUE: Contiguous axial imaging was performed from the skull base to vertex without intravenous administration of contrast. This CT examination was performed using dose optimization techniques as appropriate, variously including the following: *Automated exposure control. *Adjustment of mA and/or kV according to patient size (this includes techniques or standardized protocols for targeted exams where dose is matched to indication/reason for exam; i.e. extremities or head). *Use of iterative reconstruction technique. DLP: 799 mGy-cm FINDINGS: There is no evidence of acute intracranial hemorrhage or edematous territorial infarction. Self-white matter differentiation is preserved. Scattered and partially confluent hypoattenuation in the periventricular and deep white matter are consistent with mild to moderate microangiopathy. Proportional prominence of the ventricles and sulcal spaces without evidence of obstructive hydrocephalus. The third ventricle measures 1.1 cm in diameter (1 cm in 2018). No abnormal mass effect or midline shift. No extra-axial fluid collections. No acute soft tissue or osseous abnormalities. Mild mucosal thickening of the paranasal sinuses. The mastoid air cells and middle ear cavities are clear. CT/CT head/brain wo IV con IMPRESSION: 1. No evidence of acute intracranial hemorrhage or edematous territorial infarction. 2. Mild to moderate underlying microangiopathy. Moderate generalized cerebral volume loss.
--- NOTE | ~2023-07-26 | XR_ITS ---
EXAMINATION: XR CHEST CLINICAL INFORMATION: Fever COMPARISON: None available. TECHNIQUE: 2 views of the chest were obtained. FINDINGS: Lung volumes are symmetric. No focal consolidation is seen. No evidence of pneumothorax, significant pleural effusion, or overt pulmonary edema. The cardiomediastinal contour is unremarkable. No acute osseous findings are seen. XR/XR chest 2V IMPRESSION: No acute cardiopulmonary findings.
[2023-07-26 13:58] VITALS: BP 140/79; PULSE 122; RESP 16; TEMP 36.8; O2SAT 96
[2023-07-26 14:00] VITALS: BP 142/78; PULSE 145; O2SAT 96
[2023-07-26 14:05] VITALS: BMI 24.6
--- NOTE | 2023-07-26 14:12 | PC.NURSE ---
Per EMS; HCP is Myles Goncalves, phone number [phone]
[2023-07-26 14:15] LABS: MANUAL DIFF FLAG NO
[2023-07-26 14:17] LABS: Basophils Absolute Auto 0.1 X10*3/uL (0.0-0.2); Basophils Percent Auto 0.8 % (0-2); Eosinophils Percent Auto 0.4 % (0-4); Hematocrit 42.5 % (42.0-52.0); Hemoglobin 14.6 g/dl (14.0-18.0); Imm Gran Abs Auto 0.04 X10*3/uL (0.00-0.03); Imm Gran Pct Auto 0.5 % (0.0-0.4); Lymphocytes Absolute Auto 1.4 X10*3/uL (1.2-4.9); Lymphocytes Percent Auto 18.8 % (20-40); Mean Corpuscular HGB Conc 34.4 g/dl (31.0-36.0); Mean Corpuscular Hemoglobin 29.3 pg (27.0-33.0); Mean Corpuscular Volume 85.2 fL (80.0-98.0); Mean Platelet Volume 9.8 fL (9.4-12.4); Monocytes Absolute Auto 0.5 X10*3/uL (0.1-1.2); Monocytes Percent Auto 7.2 % (2-11); Neutrophils Absolute Auto 5.3 x10*3/uL (2.0-8.3); Neutrophils Percent Auto 72.3 % (45-73); Platelet Count 218 X10*3/uL (160-400); Red Blood Count 4.99 X10*6/uL (4.60-5.80); Red Cell Distribution Width 13.2 % (11.0-16.0); White Blood Count 7.4 X10*3/uL (4.8-10.8)
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
[2023-07-26 14:31] LABS: Alanine Aminotransferase 23 U/L (0-40); Albumin Level 4.9 g/dL (3.5-5.0); Alkaline Phosphatase 95 U/L (39-117); Anion Gap 20 (12-20); Aspartate Amino Transferase 29 U/L (5-37); Bilirubin Total 0.7 mg/dL (0.0-1.0); Blood Urea Nitrogen 19 mg/dL (9-16); Calcium 10.3 mg/dL (8.4-10.2); Carbon Dioxide 23 mmol/L (22-29); Chloride 104 mmol/L (96-108); Creatinine Clr Calc Pharmacy 64.2; Estimated Glomerular Filt Rate > 60; Ethanol < 10 mg/dL; Glucose Random 232 mg/dL (60-115); Potassium 4.5 mmol/L (3.3-5.1); Sodium 142 mmol/L (135-145)
[2023-07-26 14:32] LABS: COVID-19 Test Negative (Negative); IDNOW Serial# 9DB6401D
--- NOTE | 2023-07-26 14:49 | PC.NURSE ---
pt is unable to see and very unsteady on feet. Uses a cane to get around. changed into hospital attire with security. Sitter at bedside, pt has cane at bedside. Pt denies SI at this time, he does not which hospital he is at or why he is at the hospital. Pt does not know why he is here
--- NOTE | 2023-07-26 14:59 | PC.NURSE ---
PT belongings in pod locker 10
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
--- NOTE | 2023-07-26 18:58 | PC.NURSE ---
Assumed care of pt. Pt denies SI, states that he does not want to live at current residence, verified by MEDICAL LABORATORY TECHNOLOGIST/HCP. pt is CM for new living arrangements. Plan to send pt to [facility]. 1:1 [facility]rena [facility] with approval from Carlos Bermudez.
--- NOTE | 2023-07-26 19:36 | PC.NURSE ---
Report to Betzy Sorenson RN
[2023-07-26 20:14] VITALS: BP 129/67; PULSE 74; RESP 18; TEMP 36.9; O2SAT 97
--- NOTE | 2023-07-27 00:34 | PC.NURSE ---
Assumed care of patient , denies pain, vss. Patient resting comfortably no distress noted. Bed alarm on , call davis within reach.
[2023-07-27 06:23] VITALS: BP 143/75; PULSE 76; RESP 17; TEMP 36.4; O2SAT 96
[2023-07-27 07:33] VITALS: BP 141/67; PULSE 74; RESP 18; TEMP 36.3; O2SAT 96
--- NOTE | 2023-07-27 10:00 | PC.NURSE ---
requested urine sample from pt. pt states he will attempt.
--- NOTE | 2023-07-27 12:05 | PC.NURSE ---
drug screen/urine catch mathew tube sent. need 1 more yellow tube for the ua- lab called and made aware awaiting this sample as the urine was flushed prior to obtaining 3 vials
[2023-07-27 12:09] LABS: Appearance Urine Clear; Color Urine Yellow; Glucose Urine UA >=1000 mg/dL (Negative); Leukocyte Esterase Urine Negative (Negative); Nitrite Urine Negative (Negative); Specific Gravity - Urine 1.025 (1.005-1.025); UMIC TRIGGER UACC YES; Urine Blood Negative (Negative); Urine Ketones Negative (Negative); Urine Protein Negative (Neg-Trace)
[2023-07-27 12:15] LABS: Bacteria Urine None Seen (None Seen); Hyaline Casts Urine 0-2 /LPF (0-2); RBC Urine 0-2 /HPF (0-2); Squamous Epithelial Cell Urine 0-2 /HPF (0-2); WBC Urine 0-5 /HPF (0-5)
[2023-07-27 12:22] LABS: Amphetamine Screen Urine Not Detected (Not Detect); Barbiturates, Urine Not Detected (Not Detect); Benzodiazepines Screen Urine Not Detected (Not Detect); Cannabinoid Screen Urine Not Detected (Not Detect); Cocaine Screen Urine Not Detected (Not Detect); Fentanyl, urine Not Detected (Not Detect); Opiate Screen Urine Not Detected (Not Detect); Phencyclidine Screen Urine Not Detected (Not Detect)
--- NOTE | 2023-07-27 12:46 | PC.NURSE ---
sat up, ate lunch. no distress.
[2023-07-27 14:00] VITALS: BP 115/57; PULSE 93; RESP 20; TEMP 36.7; O2SAT 100
--- NOTE | 2023-07-27 14:31 | MHC.CM.PN ---
CM ATTEMPTED TO REACH CONTACT ANIBAL GODINEZ X 2 WITH NO RETURN CALL. PT WILL BE SEEN BY CARE TEAM AND HAVE A P.T. EVAL TO DETERMINE DC PLAN. AWARE. CM WILL CONTINUE TO FOLLOW FOR A SAFE DC PLAN.
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
--- NOTE | 2023-07-27 18:00 | PC.NURSE ---
ate dinner well. no si/hi/distress
--- NOTE | 2023-07-27 21:03 | PC.NURSE ---
Pt assisted to restroom and back into bed. Pt positioned in bed for comfort. Plan of care ongoing.
[2023-07-27 21:46] VITALS: BP 148/88; PULSE 70; RESP 16; TEMP 36.7; O2SAT 97
--- NOTE | 2023-07-27 21:55 | PC.NURSE ---
Pt requested and given juice. Plan of care ongoing.
--- NOTE | 2023-07-27 21:56 | MHC.EDTECH ---
THIS PCT ASSUMED CARE OF PT AT 2100 ,VITALS TAKEN ,PATIENT IN BED LISTENING TO TELEVISION ,FLUIDS OFFER PT DRANK 120 ML CRANBERRY JUICE .
[2023-07-28 06:00] VITALS: BP 140/79; PULSE 71; RESP 16; TEMP 36.2; O2SAT 97
--- NOTE | 2023-07-28 06:36 | MHC.EDTECH ---
PATIENT SLEPT MOST OF THE NIGHT ,UP TIMES 1 TO USE URINAL ,VOID 350 ML .
--- NOTE | 2023-07-28 12:32 | PC.NURSE ---
report recieved from overnight RN, pt offering no complaints. set up for meals, ate 100% of breakfast and lunch. Pleasant and cooperative. voiding in urinal at bedside, clear yellow urine. respirations even and unlabored, no distress noted or reported. safety precautions in place, call davis within reach, bed alarm on, pt encouraged to call for assistance.
--- NOTE | 2023-07-28 15:45 | PHA.MEDREC ---
Pharmacy Consult ? Medication Reconciliation Pharmacy has completed the medication reconciliation.MED REC DONE USING CLAIM HISTORY AT PROVIDER REQUEST. PT IS NOT ABLE TO ANSWER QUESTIONS ABOUT HOME MEDICATIONS SO MOST RECENT PHARMACY CLAIMS USED.
[2023-07-28 16:13] VITALS: BP 131/69; PULSE 95; RESP 16; TEMP 37; O2SAT 95
[2023-07-28 21:11] VITALS: BP 164/79; PULSE 93; RESP 18; TEMP 36.6; O2SAT 100
[2023-07-28 21:13] LABS: Glucose, Whole Blood 322 mg/dL (60-115)
[2023-07-28] MEDS: QUEtiapine Fumarate 50 MG TABLET PO (21:39)
[2023-07-28] MEDS: Insulin Lispro 100 UNIT/ML 3 ML VIAL 8 UNIT SUBCUT (21:40)
[2023-07-28] MEDS: Insulin Glargine,Hum.rec.anlog 100 UNIT/ML 10 ML VIAL 25 UNIT SUBCUT (21:40)
--- NOTE | 2023-07-28 21:56 | MHC.EDTECH ---
Late Entry, This tech assumed care of patient at 1900, hourly rounds and vitals completed, Patient urinated 500MLS in urinal, patient was also incot of a small amount of urine. Patient was cleaned and repositioned to comfort. Blood Sugar take @ 2051 and is 322 EMERY RN is aware. This tech offered patient a snack and he stated he is not hungry at this time. Call davis within reach and bed alarm on for safety.
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
[2023-07-29 06:00] VITALS: BP 132/66; PULSE 91; RESP 18; TEMP 36.4; O2SAT 97
[2023-07-29 07:22] LABS: Glucose, Whole Blood 231 mg/dL (60-115)
[2023-07-29] MEDS: Atorvastatin Calcium 40 MG TABLET PO (08:24)
[2023-07-29] MEDS: Losartan Potassium 25 MG TABLET PO (08:24)
[2023-07-29] MEDS: metFORMIN HCl 1,000 MG TABLET 1000 MG PO ×2 (08:24→16:56)
[2023-07-29] MEDS: Finasteride 5 MG TABLET PO (08:24)
[2023-07-29] MEDS: Insulin Lispro 100 UNIT/ML 3 ML VIAL 8 UNIT SUBCUT ×3 (08:24→20:56)
[2023-07-29] MEDS: Escitalopram Oxalate 10 MG TABLET PO (08:24)
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
[2023-07-29 11:16] LABS: Glucose, Whole Blood 266 mg/dL (60-115)
[2023-07-29 13:52] VITALS: BP 99/63; PULSE 88; RESP 18; TEMP 36.9; O2SAT 96
[2023-07-29 16:01] LABS: Glucose, Whole Blood 260 mg/dL (60-115)
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
[2023-07-29 20:17] LABS: Glucose, Whole Blood 347 mg/dL (60-115)
[2023-07-29] MEDS: QUEtiapine Fumarate 50 MG TABLET PO (20:55)
[2023-07-29] MEDS: Insulin Glargine,Hum.rec.anlog 100 UNIT/ML 10 ML VIAL 25 UNIT SUBCUT (20:56)
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
[2023-07-29 21:40] VITALS: BP 139/68; PULSE 88; RESP 18; TEMP 36.7; O2SAT 95
[2023-07-29 21:54] LABS: Glucose, Whole Blood 270 mg/dL (60-115)
[2023-07-30 06:10] VITALS: BP 126/64; PULSE 88; RESP 16; TEMP 36.7; O2SAT 95
[2023-07-30 07:52] LABS: Glucose, Whole Blood 181 mg/dL (60-115)
--- NOTE | 2023-07-30 08:46 | MHC.CM.ED ---
Patient remains in ER overflow. [facility] because there is not a 2nd witness. There is a copy of HCP in [employer] dated 07/05/2018, listing patient's , Debbie Todd as HCP. No HCP on file at [facility]. Aruna Osorio CM director aware. Continue to monitor for d/c needs.
[2023-07-30] MEDS: metFORMIN HCl 1,000 MG TABLET 1000 MG PO ×2 (09:55→16:11)
[2023-07-30] MEDS: Atorvastatin Calcium 40 MG TABLET PO (09:55)
[2023-07-30] MEDS: Insulin Lispro 100 UNIT/ML 3 ML VIAL 8 UNIT SUBCUT ×3 (09:56→22:20)
[2023-07-30] MEDS: Escitalopram Oxalate 10 MG TABLET PO (09:56)
[2023-07-30] MEDS: Finasteride 5 MG TABLET PO (09:56)
[2023-07-30] MEDS: Losartan Potassium 25 MG TABLET PO (09:56)
--- NOTE | 2023-07-30 10:57 | PC.NURSE ---
Justino from [facility] in to meet with patient, case management aware
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
--- NOTE | 2023-07-30 13:49 | MHC.CM.ED ---
Patient remains in ER overflow. Per Inna, non destructive testing supervisor, patient does not have capacity to make medical decisions. T/W spoke with Justino from [facility] via telephone at [phone]. Justino does not feel Myles should be patient's HCP or POA. Patient is in the process of selling 3 homes. Aruna Osorio CM director made aware and will speak to Librarian Head Saturnino. Continue to monitor for d/c needs.
[2023-07-30 14:46] VITALS: BP 128/67; PULSE 88; O2SAT 95
--- NOTE | 2023-07-30 18:05 | PC.NURSE ---
Alert and responsive, ate well for dinner, denies pain or discomfort. Listening to T.V on [employer]
[2023-07-30 19:00] VITALS: BP 140/71; PULSE 119; RESP 18; TEMP 36.6; O2SAT 96
[2023-07-30] MEDS: QUEtiapine Fumarate 50 MG TABLET PO (22:17)
[2023-07-30] MEDS: Insulin Glargine,Hum.rec.anlog 100 UNIT/ML 10 ML VIAL 25 UNIT SUBCUT (22:19)
--- NOTE | 2023-07-30 22:22 | PC.NURSE ---
pt medicated per mar.
--- NOTE | 2023-07-31 00:42 | PC.NURSE ---
hanna care completed, pt assisted with urinal.
[2023-07-31 04:58] VITALS: BP 113/67; PULSE 85; RESP 17; TEMP 36.3; O2SAT 97
--- NOTE | 2023-07-31 06:39 | PC.NURSE ---
empty out urinal,
[2023-07-31] MEDS: Insulin Lispro 100 UNIT/ML 3 ML VIAL 8 UNIT SUBCUT ×2 (08:07→14:04)
[2023-07-31] MEDS: Finasteride 5 MG TABLET PO (08:08)
[2023-07-31] MEDS: Losartan Potassium 25 MG TABLET PO (08:09)
[2023-07-31] MEDS: metFORMIN HCl 1,000 MG TABLET 1000 MG PO (08:09)
[2023-07-31] MEDS: Atorvastatin Calcium 40 MG TABLET PO (08:09)
[2023-07-31] MEDS: Escitalopram Oxalate 10 MG TABLET PO (08:10)
[2023-07-31 08:15] VITALS: BP 132/68; PULSE 82; RESP 18; TEMP 36.2; O2SAT 97
--- NOTE | 2023-07-31 13:39 | MHC.CM.ED ---
Patient remains in ER [facility]. Guardianship paperwork has been submitted to hospital tax associate attorney by Aruna Osorio. Continue to monitor for d/c needs.
[2023-07-31 14:00] VITALS: BP 135/78; PULSE 104; RESP 18; TEMP 36.7; O2SAT 98
--- NOTE | 2023-07-31 16:14 | MHC.EDTECH ---
1:1 assist to the bathroom with instructions when to turn and feel toilet and bed.
[2023-07-31 21:56] VITALS: BP 140/74; PULSE 99; RESP 16; TEMP 36.6; O2SAT 99
--- NOTE | 2023-08-01 01:42 | PC.NURSE ---
Pt has ambulated with his cane to the bathroom earlier in the shift. Pt is now asleep in bed, callbell within reach.
[2023-08-01 07:45] VITALS: BP 113/64; PULSE 83; RESP 16; TEMP 36.8; O2SAT 97
--- NOTE | 2023-08-01 07:57 | PC.NURSE ---
Resumed care of patient at this time, he is alert and oriented, resting comfortably in bed
--- NOTE | 2023-08-01 08:33 | MHC.CM.PN ---
PT AWAITING GUARDIANSHIP AND LTC PLACEMENT GUARDIANSHIP HAS BEEN INITIATED
[2023-08-01] MEDS: Atorvastatin Calcium 40 MG TABLET PO (08:35)
[2023-08-01] MEDS: Escitalopram Oxalate 10 MG TABLET PO (08:35)
[2023-08-01 14:00] VITALS: BP 130/64; PULSE 86; RESP 16; TEMP 36.4; O2SAT 98
--- NOTE | 2023-08-01 19:39 | PC.NURSE ---
Assumed care for pt. Pt aox4 resting/listening to the TV at the bedside. No apparent distress noted. Reports no pain at this time. Denies SI/HI. Call davis and belongings placed within reach. Monitoring is ongoing.
[2023-08-01 19:42] VITALS: BP 144/71; PULSE 72; RESP 16; O2SAT 95
[2023-08-01 19:50] LABS: Creatinine Clr Calc Pharmacy 70.7; Estimated Glomerular Filt Rate > 60
--- NOTE | 2023-08-02 03:40 | PC.NURSE ---
Pt sleeping at the bedside. No apparent distress noted. Breaths are even regular and unlabored with equal chest rises. Monitoring is ongoing.
[2023-08-02 05:57] VITALS: BP 113/70; PULSE 89; RESP 16; TEMP 36.6; O2SAT 96
--- NOTE | 2023-08-02 08:43 | PC.NURSE ---
pt medicated per provider order. pt resting comfortably eating breakfast at this time. pt has no complaints aside from slight discomfort in left upper extremity. declines pain medication at this time. no sob/wob noted. respirations even and unlabored. call davis placed within reach.
--- NOTE | 2023-08-02 12:33 | PC.NURSE ---
pt ate 100% of lunch. pt continues to deny SI/HI at this time. resting comfortably in no apparent distress at this time. respirations remain even and unlabored. call davis placed within reach.
[2023-08-02 14:06] VITALS: BP 126/70; PULSE 96; RESP 18; TEMP 36.4; O2SAT 95
--- NOTE | 2023-08-02 14:41 | PC.NURSE ---
insulin administered per provider order. pt continues to rest comfortably in no apparent distress. respirations remain even and unlabored. call davis placed within reach.
--- NOTE | 2023-08-02 16:24 | PC.NURSE ---
pt medicated per provider order. pt denies pain at this time. resting comfortably in no apparent distress. respirations remain even and unlabored. call davis placed within reach.
--- NOTE | 2023-08-02 17:57 | PC.NURSE ---
pt ambulated around overflow with kapturem. pt ambulated w/ a strong steady gait - 1:1 assist. pt used cane from home as a guide. pt now resting comfortably in bed in no apparent distress. respirations remain even and unlabored. call davis placed within reach.
[2023-08-02 18:58] VITALS: PULSE 83; RESP 18; O2SAT 98
--- NOTE | 2023-08-02 19:20 | PC.NURSE ---
this rn assumed care of pt. pt resting in stretcher comfortably, no acute distress noted.
[2023-08-02 19:32] VITALS: BP 135/69; PULSE 83; RESP 16; TEMP 36.7; O2SAT 96
--- NOTE | 2023-08-02 20:16 | PC.NURSE ---
this rn assisted pt with urinal, pt voided 400cc yellow urine at this time.
--- NOTE | 2023-08-02 20:48 | PC.NURSE ---
pt medicated per sep. pt tolerated pills with water.
[2023-08-03 06:00] VITALS: BP 153/83; PULSE 91; RESP 16; TEMP 36.3; O2SAT 98
--- NOTE | 2023-08-03 06:30 | PC.NURSE ---
Acquired care at 2300. Pt is in bed, No signs of distress. Sleeping. Wakes up intermittently to use the urinal.
--- NOTE | 2023-08-03 10:48 | PC.NURSE ---
pt ate all of brakfast, took medications this AM. watching TV. No distress. Denies SI/HI
[2023-08-03 14:37] VITALS: BP 110/60; PULSE 94; RESP 14; TEMP 36.7; O2SAT 95
--- NOTE | 2023-08-03 15:03 | MHC.EDTECH ---
Patient ambulated to bathroom, wash and cleaned , bed lined change . Patient had a lg BM RN aware
--- NOTE | 2023-08-03 18:10 | PC.NURSE ---
pt sleeping. metformin held until pt is ready to eat dinner.
[2023-08-03 23:20] VITALS: BP 131/74; PULSE 84; RESP 20; TEMP 36.8; O2SAT 96
--- NOTE | 2023-08-04 04:26 | PC.NURSE ---
This policy writer assumed care of this Pt at 0300. Pt appears to be sleeping, equal non labored chest rise.
[2023-08-04 05:36] VITALS: BP 126/67; PULSE 76; RESP 18; TEMP 36.9; O2SAT 97
--- NOTE | 2023-08-04 05:37 | MHC.EDTECH ---
Patient slept most of the night ,Awake to use urinal ,600 ml urine empty ,vitals taken ,Pt reposition self in bed ,Call davis within Pt reach .
[2023-08-04 08:00] VITALS: BP 140/70; PULSE 90; RESP 16; O2SAT 98
--- NOTE | 2023-08-04 08:45 | PC.NURSE ---
ate breakfast well. ambulated w staff and walker well. food cut into pieces and aided w tray. . calm, coop. no si/hi
[2023-08-04 14:00] VITALS: BP 126/65; PULSE 76; RESP 14; TEMP 36.8; O2SAT 99
--- NOTE | 2023-08-04 14:30 | PC.NURSE ---
ate lunch sitting up in chair. ambulated w staff and walker well. food cut into pieces and aided w tray as needed. n opain. calm, coop. no si/hi
--- NOTE | 2023-08-04 15:33 | PC.NURSE ---
Report from Shaneka BAUMAN. Patient awake and alert. Sitting upright in chair next to bed. skin pwd, resp even and non labored, speaking in full, clear sentences. Medicated with insulin per SEP.
--- NOTE | 2023-08-04 16:00 | MHC.EDTECH ---
This pct assumed care of Pt at 1500 ,Pt up in recliner ,was assisted to bathroom ,void ,we took a walk around ,had diet ron nino for snack ,ad is listining to television .
[2023-08-04 16:51] LABS: Glucose, Whole Blood 213 mg/dL (60-115)
[2023-08-04] MEDS: metFORMIN HCl 1,000 MG TABLET 1000 MG PO (17:24)
--- NOTE | 2023-08-04 17:33 | PC.NURSE ---
Patient ate dinner. ambulated to/from bathroom w/ cane w/ 1 assist.
--- NOTE | 2023-08-04 18:29 | MHC.EDTECH ---
Patient was given dinner ,ate 100 % of meal drank 360 ml fluids ,Patient comfortable ,no apparent distress noted ,will continue to monitor .
[2023-08-04 20:45] VITALS: BP 151/76; PULSE 95; RESP 16; TEMP 36.7; O2SAT 97
--- NOTE | 2023-08-04 20:46 | MHC.EDTECH ---
Patient up to bathroom ,with assistance ,sponge bath given ,clean gown on ,Patient now in bed ,blood sugar check and vitals taken ,Call davis within Pt reach .
[2023-08-04] MEDS: Insulin Glargine,Hum.rec.anlog 100 UNIT/ML 10 ML VIAL 25 UNIT SUBCUT (20:48)
[2023-08-04] MEDS: QUEtiapine Fumarate 50 MG TABLET PO (20:48)
[2023-08-04] MEDS: Insulin Lispro 100 UNIT/ML 3 ML VIAL 8 UNIT SUBCUT (20:49)
[2023-08-04 20:55] LABS: Glucose, Whole Blood 232 mg/dL (60-115)
--- NOTE | 2023-08-05 00:44 | MHC.EDTECH ---
Patient awake ask for ron nino ,was given .
[2023-08-05 05:54] VITALS: BP 140/74; PULSE 81; RESP 16; TEMP 36.3; O2SAT 98
[2023-08-05 06:53] LABS: Glucose, Whole Blood 167 mg/dL (60-115)
--- NOTE | 2023-08-05 07:08 | PC.NURSE ---
08/04: Assumed care of patient at 23:30. Pt seen in ED overflow. Patient denies pain, resting in bed without distress for majority of shift. Breathing is even and unlabored without distress on RA. VSS. Voiding cyu in urinal. No acute complaints offered. Bed alarm on and safety measures in place. Handoff report given to oncoming RN 06:45.
[2023-08-05] MEDS: Finasteride 5 MG TABLET PO (07:56)
[2023-08-05] MEDS: Insulin Lispro 100 UNIT/ML 3 ML VIAL 8 UNIT SUBCUT ×3 (07:56→21:08)
[2023-08-05] MEDS: Atorvastatin Calcium 40 MG TABLET PO (07:56)
[2023-08-05] MEDS: Escitalopram Oxalate 10 MG TABLET PO (07:56)
[2023-08-05] MEDS: Losartan Potassium 25 MG TABLET PO (07:56)
[2023-08-05] MEDS: metFORMIN HCl 1,000 MG TABLET 1000 MG PO ×2 (07:56→17:00)
[2023-08-05 11:04] LABS: Glucose, Whole Blood 289 mg/dL (60-115)
--- NOTE | 2023-08-05 11:46 | MHC.CM.ED ---
Patient remains in ER overflow. Per Aruna Osorio CM Director, guardianship paperwork has been sent to the hospital [employer]. They are in the process of trying to find a professional guardian that is agreeable to be his guardian. This will be difficult to find because there are multiple properties that the guardian will have to deal with. Continue to monitor for d/c needs.
[2023-08-05 14:00] VITALS: BP 112/54; PULSE 82; RESP 16; TEMP 36.6; O2SAT 95
[2023-08-05 14:57] LABS: Glucose, Whole Blood 233 mg/dL (60-115)
[2023-08-05 16:19] LABS: Glucose, Whole Blood 223 mg/dL (60-115)
[2023-08-05 20:15] VITALS: BP 136/66; PULSE 90; RESP 19; TEMP 36.6; O2SAT 97
[2023-08-05 20:56] LABS: Glucose, Whole Blood 258 mg/dL (60-115)
[2023-08-05] MEDS: QUEtiapine Fumarate 50 MG TABLET PO (21:08)
[2023-08-05] MEDS: Insulin Glargine,Hum.rec.anlog 100 UNIT/ML 10 ML VIAL 25 UNIT SUBCUT (21:08)
[2023-08-06 04:00] VITALS: RESP 18
[2023-08-06 05:57] VITALS: BP 146/82; PULSE 54; RESP 16; TEMP 36.7; O2SAT 97
[2023-08-06] MEDS: Finasteride 5 MG TABLET PO (09:17)
[2023-08-06] MEDS: Escitalopram Oxalate 10 MG TABLET PO (09:17)
[2023-08-06] MEDS: Insulin Lispro 100 UNIT/ML 3 ML VIAL 8 UNIT SUBCUT ×2 (09:17→15:37)
[2023-08-06] MEDS: metFORMIN HCl 1,000 MG TABLET 1000 MG PO ×2 (09:17→17:20)
[2023-08-06] MEDS: Losartan Potassium 25 MG TABLET PO (09:17)
[2023-08-06] MEDS: Atorvastatin Calcium 40 MG TABLET PO (09:17)
[2023-08-06 09:27] LABS: Glucose, Whole Blood 169 mg/dL (60-115)
[2023-08-06 11:58] LABS: Glucose, Whole Blood 151 mg/dL (60-115)
--- NOTE | 2023-08-06 14:16 | PC.NURSE ---
Pt resting on stretcher, respirations even and unlabored, no apparent distress. Ate almost 100% of lunch with assistance from LISETH Monaco. Pt offers no complaints to this RN at this time
[2023-08-06 14:28] VITALS: BP 113/59; PULSE 82; RESP 18; TEMP 36.9; O2SAT 94
[2023-08-06 15:32] LABS: Glucose, Whole Blood 163 mg/dL (60-115)
[2023-08-06 17:37] VITALS: RESP 14
[2023-08-06 21:04] VITALS: BP 148/83; PULSE 81; RESP 18; TEMP 36.7; O2SAT 97
[2023-08-06 21:05] LABS: Glucose, Whole Blood 165 mg/dL (60-115)
[2023-08-06] MEDS: Insulin Glargine,Hum.rec.anlog 100 UNIT/ML 10 ML VIAL 25 UNIT SUBCUT (21:07)
[2023-08-06] MEDS: QUEtiapine Fumarate 50 MG TABLET PO (21:07)
--- NOTE | 2023-08-06 21:36 | PC.NURSE ---
pts blood sugar 165, pt declining additional oral intake for the evening, consulted with Rochelle from pharmacy, plan to hold off on Humalog due to patient's blood sugar being within an adequate range and patient will not be eating overnight. Lantus administered per SEP. Pt now resting comfortably offers no complaints, respirations even and unlabored, skin pwd
--- NOTE | 2023-08-06 21:39 | PC.NURSE ---
Late entry: pt ate 80% of dinner with this RN assisting him, pt drank 1 gingerale and about half a cup of water. Pt was able to use urinal independently and has remained pain free all day. Offering no complaints to this RN at this time
--- NOTE | 2023-08-07 00:27 | PC.NURSE ---
Assumed care for pt at 2300. Pt sleeping at the bedside. No apparent distress noted. Breaths are even regular and unlabored. Monitoring is ongoing.
[2023-08-07 06:00] VITALS: BP 122/74; PULSE 82; RESP 18; TEMP 35.8; O2SAT 98
--- NOTE | 2023-08-07 06:07 | PC.NURSE ---
Pt awake resting at the bedside. No apparent distress noted. VSS. Reports no pain at this time. Boosted and repositioned with no complications. Monitoring is ongoing.
[2023-08-07 08:17] VITALS: BP 119/67; PULSE 72; RESP 16; TEMP 36.3; O2SAT 96
[2023-08-07] MEDS: Insulin Lispro 100 UNIT/ML 3 ML VIAL 8 UNIT SUBCUT ×2 (08:33→15:06)
[2023-08-07] MEDS: Finasteride 5 MG TABLET PO (08:34)
[2023-08-07] MEDS: Atorvastatin Calcium 40 MG TABLET PO (08:34)
[2023-08-07] MEDS: Losartan Potassium 25 MG TABLET PO (08:34)
[2023-08-07] MEDS: Escitalopram Oxalate 10 MG TABLET PO (08:34)
[2023-08-07] MEDS: metFORMIN HCl 1,000 MG TABLET 1000 MG PO ×2 (08:34→17:12)
[2023-08-07 08:41] LABS: Glucose, Whole Blood 173 mg/dL (60-115)
--- NOTE | 2023-08-07 09:00 | PC.NURSE ---
PT IS A/O X 2, NO SOB/HUGO NOTED. SPEAKS IN FULL SENTENCES. PT IS BLIND. DENIES ANY PAIN/DISC. WHEN PT IS VERBALLY DIRECTED ON WHERE THINGS ARE PLACED ON HIS TRAY TABLE HE IS ABLE TO UTILIZE THESE ITEMS.
--- NOTE | 2023-08-07 09:15 | PC.NURSE ---
PT DENIES ANY SI/HI. WILL CONTINUE TO MONITOR.
--- NOTE | 2023-08-07 09:32 | MHC.EDTECH ---
Patient requested the bathroom at 09:20 and received a sponge bath while in the restroom.
--- NOTE | 2023-08-07 10:54 | PC.NURSE ---
JADA PETTY ([facility], ) CALLED [facility] AND WAS UPDATED ON PT STATUS.
[2023-08-07 14:00] VITALS: BP 120/67; PULSE 72; RESP 16; TEMP 36.4; O2SAT 96
[2023-08-07 14:46] LABS: Glucose, Whole Blood 186 mg/dL (60-115)
[2023-08-07 15:11] LABS: Creatinine Clr Calc Pharmacy 88.6; Estimated Glomerular Filt Rate > 60
--- NOTE | 2023-08-07 20:33 | PC.NURSE ---
Patient resting on recliner listen to the TV. No complaints at this time, no s/s of distress noted.
[2023-08-07 20:55] LABS: Glucose, Whole Blood 171 mg/dL (60-115)
--- NOTE | 2023-08-07 20:59 | PC.NURSE ---
Blood sugar tonight 171, spoke with Marley Payton and rizwana will be held tonight.
[2023-08-07] MEDS: Insulin Glargine,Hum.rec.anlog 100 UNIT/ML 10 ML VIAL 25 UNIT SUBCUT (21:05)
[2023-08-07] MEDS: QUEtiapine Fumarate 50 MG TABLET PO (21:05)
[2023-08-07 21:58] VITALS: BP 142/71; PULSE 75; RESP 18; TEMP 36.7; O2SAT 97
--- NOTE | 2023-08-07 22:35 | PC.NURSE ---
Patient assisted back to bed with 1 assist. No s/s of distress noted.
[2023-08-08 02:41] VITALS: BP 111/59; PULSE 74; RESP 18; TEMP 36.1; O2SAT 96
[2023-08-08 07:42] VITALS: BP 117/67; PULSE 69; RESP 16; TEMP 36.1; O2SAT 95
[2023-08-08 08:24] LABS: Glucose, Whole Blood 173 mg/dL (60-115)
--- NOTE | 2023-08-08 08:30 | MHC.EDTECH ---
Check patients vitals and POC. Patients POC was 173. RN Aware. Sat patient up for breakfast. Ate 100% of his meal including his coffee. Emptied urinal as well, 300 cc of tea colored urine.
--- NOTE | 2023-08-08 08:32 | MHC.CM.ED ---
Addendum entered by Dacia Soni 08/08/23 08:33: Ana Maria Valdez is the appointed guardian/conservator. Original Note: Patient remains in ER overflow. Court scheduled 08/15/23 at 145pm for guardianship and conservator. Continue to monitor for d/c needs.
[2023-08-08] MEDS: Atorvastatin Calcium 40 MG TABLET PO (08:37)
[2023-08-08] MEDS: Insulin Lispro 100 UNIT/ML 3 ML VIAL 8 UNIT SUBCUT ×2 (08:37→20:56)
[2023-08-08] MEDS: metFORMIN HCl 1,000 MG TABLET 1000 MG PO ×2 (08:37→17:55)
[2023-08-08] MEDS: Escitalopram Oxalate 10 MG TABLET PO (08:37)
[2023-08-08] MEDS: Losartan Potassium 25 MG TABLET PO (08:37)
[2023-08-08] MEDS: Finasteride 5 MG TABLET PO (08:37)
--- NOTE | 2023-08-08 08:45 | MHC.EDTECH ---
Patient took a shower and brushed his teeth. Patient is now sitting in recliner chair relaxing. Chair alarm is on.
[2023-08-08 12:58] LABS: Glucose, Whole Blood 152 mg/dL (60-115)
--- NOTE | 2023-08-08 13:01 | MHC.EDTECH ---
Empied out urinal 700cc. Patient ate 100% of his lunch.
--- NOTE | 2023-08-08 13:51 | PC.NURSE ---
PT DENIES ANY SI/HI. PT TO BE RETURNED TO BED.
[2023-08-08 14:00] VITALS: BP 116/62; PULSE 82; RESP 18; TEMP 36.6; O2SAT 97
--- NOTE | 2023-08-08 14:43 | MHC.EDTECH ---
Pt brought back to bed, Sat in the recliner for most of the day after his shower. Emptied urinal 200cc
--- NOTE | 2023-08-08 15:03 | PC.NURSE ---
pt resting quietly in bed, sleeping on and off. using urinal independently when needed. rr even/unlabored. pt offers no complaints jeison. denies SI/HI. call davis within pt reach. plan of care ongoing.
[2023-08-08 15:35] LABS: Glucose, Whole Blood 145 mg/dL (60-115)
--- NOTE | 2023-08-08 15:35 | MHC.EDTECH ---
checked patient blood sugar emptied urinal 150 cc
--- NOTE | 2023-08-08 17:20 | MHC.EDTECH ---
pt ate 100% of his meal. emptied 150 cc out of urinal
--- NOTE | 2023-08-08 18:00 | PC.NURSE ---
pt medicated per mar. pt pleasant, israeli speaking but understands and can speak some djiboutian. pt denies pain, denies SI, and denies HI. pt resting quietly in bed. rr even/unlabored. call davis within pt reach. plan of care ongoing.
--- NOTE | 2023-08-08 20:13 | MHC.EDTECH ---
emptied 250 cc out of urinal
[2023-08-08 20:54] LABS: Glucose, Whole Blood 163 mg/dL (60-115)
[2023-08-08] MEDS: QUEtiapine Fumarate 50 MG TABLET PO (20:55)
[2023-08-08] MEDS: Insulin Glargine,Hum.rec.anlog 100 UNIT/ML 10 ML VIAL 25 UNIT SUBCUT (20:56)
[2023-08-08 21:49] VITALS: BP 128/64; PULSE 71; RESP 18; TEMP 36.5; O2SAT 96
--- NOTE | 2023-08-09 03:51 | PC.NURSE ---
Assumed care , patient resting quietly. Safety precautions in place. Call davis within reach.
[2023-08-09 05:31] VITALS: BP 129/69; PULSE 75; RESP 20; TEMP 36.3; O2SAT 98
[2023-08-09 07:44] LABS: Glucose, Whole Blood 123 mg/dL (60-115)
[2023-08-09] MEDS: Atorvastatin Calcium 40 MG TABLET PO (08:17)
[2023-08-09] MEDS: Losartan Potassium 25 MG TABLET PO (08:17)
[2023-08-09] MEDS: Finasteride 5 MG TABLET PO (08:17)
[2023-08-09] MEDS: metFORMIN HCl 1,000 MG TABLET 1000 MG PO ×2 (08:18→16:59)
[2023-08-09] MEDS: Escitalopram Oxalate 10 MG TABLET PO (08:18)
[2023-08-09] MEDS: Insulin Lispro 100 UNIT/ML 3 ML VIAL 8 UNIT SUBCUT ×2 (08:19→16:59)
--- NOTE | 2023-08-09 09:45 | MHC.EDTECH ---
pt rang call davis to use the bathroom, pt had a bowel movement on the toilet. Walked him back to his room and sat him in the recliner chair. Chair alarm is on.
--- NOTE | 2023-08-09 10:15 | MHC.EDTECH ---
Washed PT IN THE BATHROOM. BROUGHT HIM BACK TO HIS RECLINER. RESTING QUIETLY. BROUGHT FRESH ICE WATER.
--- NOTE | 2023-08-09 11:21 | PC.NURSE ---
resting oob in chair. no resp distress. breathing well.
[2023-08-09 11:57] LABS: Glucose, Whole Blood 178 mg/dL (60-115)
[2023-08-09 13:48] VITALS: BP 116/61; PULSE 82; RESP 18; TEMP 36.7; O2SAT 95
[2023-08-09 15:45] VITALS: BP 124/67; PULSE 62; RESP 16; TEMP 36.5; O2SAT 97
--- NOTE | 2023-08-09 15:45 | MHC.EDTECH ---
Emptied urinal 150cc
[2023-08-09 16:38] LABS: Glucose, Whole Blood 182 mg/dL (60-115)
--- NOTE | 2023-08-09 17:40 | PC.NURSE ---
Assumed care of pt at 1500. Pt A&Ox2-3 responds with short 1 word answers, pt is legally Blind. Pt is up to chair at this time, per report pt is able to ambulate to bathroom with walker. Pt LS clear. Abd obese, +bs all 4 quads. Pt POC at dinner 182, insulin given per orders. Pt is able to feed self. Denies pain at this time. All safety measures in place, vital signs. stable. Awaiting disposition.
[2023-08-09 19:41] VITALS: BP 126/67; PULSE 81; RESP 16; TEMP 36.6; O2SAT 96
[2023-08-09 20:53] LABS: Glucose, Whole Blood 165 mg/dL (60-115)
[2023-08-09] MEDS: Insulin Glargine,Hum.rec.anlog 100 UNIT/ML 10 ML VIAL 25 UNIT SUBCUT (21:18)
[2023-08-09] MEDS: QUEtiapine Fumarate 50 MG TABLET PO (21:18)
--- NOTE | 2023-08-10 02:18 | PC.NURSE ---
Patient has been sleeping throughout night. Call davis within reach. Bed alarm on, safety measures in place.
[2023-08-10 04:20] VITALS: BP 112/62; PULSE 62; RESP 16; TEMP 36.6; O2SAT 96
[2023-08-10 07:17] LABS: Glucose, Whole Blood 126 mg/dL (60-115)
[2023-08-10] MEDS: Finasteride 5 MG TABLET PO (08:13)
[2023-08-10] MEDS: Escitalopram Oxalate 10 MG TABLET PO (08:14)
[2023-08-10] MEDS: Atorvastatin Calcium 40 MG TABLET PO (08:14)
[2023-08-10] MEDS: Losartan Potassium 25 MG TABLET PO (08:14)
[2023-08-10] MEDS: Insulin Lispro 100 UNIT/ML 3 ML VIAL 8 UNIT SUBCUT ×3 (08:14→17:28)
[2023-08-10] MEDS: metFORMIN HCl 1,000 MG TABLET 1000 MG PO ×2 (08:14→17:29)
--- NOTE | 2023-08-10 09:25 | PC.NURSE ---
Assumed care at 0700. Pt A&Ox3. Respirations even and unlabored, resting comfortably in bed. No complaints offered. Pt med and meal compliant. Requesting to stay in bed for AM rather than transfer to recliner. Pt repositioned for comfort. Bed alarm on. Plan of care ongoing.
[2023-08-10 11:12] LABS: Glucose, Whole Blood 161 mg/dL (60-115)
[2023-08-10 14:00] VITALS: BP 141/67; PULSE 86; RESP 18; TEMP 36.6; O2SAT 97
--- NOTE | 2023-08-10 15:33 | PC.NURSE ---
Patient awake and alert, skin pwd, resp even and non labored, speaking in full, clear sentences. sitting in recliner chair at bedside.
[2023-08-10 16:16] LABS: Glucose, Whole Blood 149 mg/dL (60-115)
[2023-08-10 19:43] VITALS: BP 145/75; PULSE 82; RESP 16; TEMP 36.6; O2SAT 99
--- NOTE | 2023-08-10 19:45 | MHC.EDTECH ---
THIS PCT ASSUMED CARE OF PT AT 1900 ,PT SITTING IN RECLINER ,LISTENING TO TELEVISION ,VITALS TAKEN ,PT COMFORTABLE ,NO APPARENT DISTRESS NOTED .
[2023-08-10 20:45] LABS: Glucose, Whole Blood 170 mg/dL (60-115)
--- NOTE | 2023-08-10 20:45 | MHC.EDTECH ---
Patient blood sugar check ,rn aware ,Patient had an ice cream for snack ,pt was assisted to walk to bathroom with his cane ,sponge bath given ,lotion apply ,Patient was assisted to bed ,fresh water given and ron nino ,Patient comfortable listening to television .
[2023-08-10] MEDS: QUEtiapine Fumarate 50 MG TABLET PO (20:54)
[2023-08-10] MEDS: Insulin Glargine,Hum.rec.anlog 100 UNIT/ML 10 ML VIAL 25 UNIT SUBCUT (20:55)
--- NOTE | 2023-08-10 21:54 | PC.NURSE ---
Assumed care of patient 19:15. Pt is seen this evening in ED overflow bed 3. Pt is pleasantly confused, A&Ox2 to self and place only, reoriented. Pt denies SI/HI. He is calm and cooperative with care. VSS. Tolerating diabetic diet, evening POC 170, given scheduled lantus shortly after snack. Denies pain and offers no complaints. Pt assisted back to bed from chair this evening and is watching tv, appearing comfortable. Breathing is even and unlabored without distress. +pp/cms. Will continue to monitor for remainder of entry writer's scheduled care. Bed alarm on and safety measures in place. Will continue to monitor for remainder of entry writer's scheduled care.
--- NOTE | 2023-08-10 23:26 | PC.NURSE ---
Handoff report given to oncoming ED RN at 23:15.
--- NOTE | 2023-08-11 01:20 | PC.NURSE ---
Assumed care of pt at 2315. Pt in bed watching tv, using urinal independently. No distress, denies pain or any needs at this time. Plan of care ongoing.
--- NOTE | 2023-08-11 05:47 | PC.NURSE ---
Pt ambulated ti thr bathroom 1 assist with a cane d/t being legally blind. Pt had bm.
[2023-08-11 07:48] VITALS: BP 120/70; PULSE 83; RESP 16; O2SAT 97
[2023-08-11] MEDS: metFORMIN HCl 1,000 MG TABLET 1000 MG PO ×2 (07:57→16:47)
[2023-08-11] MEDS: Finasteride 5 MG TABLET PO (07:57)
[2023-08-11] MEDS: Atorvastatin Calcium 40 MG TABLET PO (07:57)
[2023-08-11] MEDS: Escitalopram Oxalate 10 MG TABLET PO (07:57)
[2023-08-11] MEDS: Losartan Potassium 25 MG TABLET PO (07:57)
[2023-08-11 09:09] LABS: Glucose, Whole Blood 240 mg/dL (60-115)
[2023-08-11 11:20] LABS: Glucose, Whole Blood 202 mg/dL (60-115)
[2023-08-11] MEDS: Insulin Lispro 100 UNIT/ML 3 ML VIAL 8 UNIT SUBCUT (11:21)
[2023-08-11 15:05] VITALS: BP 100/59; PULSE 77; RESP 16; O2SAT 98
[2023-08-11 16:37] LABS: Glucose, Whole Blood 134 mg/dL (60-115)
[2023-08-11 19:57] VITALS: BP 136/73; PULSE 78; RESP 16; TEMP 36.7; O2SAT 96
[2023-08-11] MEDS: QUEtiapine Fumarate 50 MG TABLET PO (21:33)
[2023-08-11] MEDS: Insulin Glargine,Hum.rec.anlog 100 UNIT/ML 10 ML VIAL 25 UNIT SUBCUT (21:33)
--- NOTE | 2023-08-11 21:37 | PC.NURSE ---
Pt ca&ox3, no signs of distress. Pt sitting in bed listening to the TV Pt medicated per mar. Plan of care ongoing.
[2023-08-11 21:45] LABS: Glucose, Whole Blood 156 mg/dL (60-115)
[2023-08-12 06:00] VITALS: BP 119/63; PULSE 76; RESP 16; TEMP 36.3; O2SAT 98
--- NOTE | 2023-08-12 06:46 | PC.NURSE ---
Assumed care of patient at 23:30. Continues in ED overflow. Pt is A&Ox2-3. Resting quietly in bed watching tv or sleeping for majority of shift. Breathing is even and unlabored without distress on RA. Voids cyu in urinal independently. High falls preventative measures in place. Handoff report given to oncoming RN 06:45.
--- NOTE | 2023-08-12 07:30 | MHC.EDTECH ---
Took PTS POC = 99 RN AWARE PT Resting in bed waiting for breakfast
[2023-08-12 07:32] LABS: Glucose, Whole Blood 99 mg/dL (60-115)
[2023-08-12] MEDS: Escitalopram Oxalate 10 MG TABLET PO (07:56)
[2023-08-12] MEDS: Finasteride 5 MG TABLET PO (07:56)
[2023-08-12] MEDS: Losartan Potassium 25 MG TABLET PO (07:56)
[2023-08-12] MEDS: metFORMIN HCl 1,000 MG TABLET 1000 MG PO ×2 (07:56→18:09)
[2023-08-12] MEDS: Atorvastatin Calcium 40 MG TABLET PO (07:56)
--- NOTE | 2023-08-12 08:47 | MHC.EDTECH ---
PT ate 100% of his breakfast. 240cc of fluids. Emptied urinal 200cc.
[2023-08-12 09:30] VITALS: BP 128/68; PULSE 70; RESP 16; O2SAT 96
--- NOTE | 2023-08-12 10:27 | PC.NURSE ---
pt talking with briquette machine operator, up in chair, calm, coop. no distress. drinking po fluids. no distress.
--- NOTE | 2023-08-12 11:32 | PC.NURSE ---
bed changed, pt showering. no disterss. walked well w cane oob x1 standby
--- NOTE | 2023-08-12 11:59 | MHC.EDTECH ---
pt is eating lunch in recliner chair.
--- NOTE | 2023-08-12 12:01 | MHC.EDTECH ---
PT ATE 100% OF LUNCH AND 360CC OF FLUIDS.
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
--- OUTSIDE RECORDS SUMMARY | 2023-08-12 12:24 | XMS_ITS | Continuity of Care Document ---
Author Name Unknown Organization [facility] Address [address] [place] [address]- Care Team Providers Care Gasoline Pump Mechanic Name Role Phone Millie Burden MD Primary Care Physician Encounter [facility] [place] Date(s): 07/01/23 - 07/31/23 [facility] [address] [place] [phone] [place] Patient Care team information Care Team Personnel Name: Millie Burden MD Position: [facility] Outreach Member Role: PCP Address: Address: [address] [place] [address] [address] Millie Burden MD [place], [place] [address]
--- OUTSIDE RECORDS SUMMARY | 2023-08-12 12:25 | XMS_ITS | Continuity of Care Document ---
Author Name Unknown Organization [facility] Address [address] [place] [address]- Care Team Providers Care Vp Informatics Name Role Phone Millie Burden MD Primary Care Physician Encounter [facility] [place] Date(s): 06/24/23 - 07/24/23 [facility] [address] [place] [phone] [place] Patient Care team information Care Team Personnel Name: Millie Burden MD Position: [facility] Outreach Member Role: PCP Address: Address: [address] [place] [address] [address] Millie Burden MD [place], [place] [address]
--- OUTSIDE RECORDS SUMMARY | 2023-08-12 12:25 | XMS_ITS | Continuity of Care Document ---
Author Name Unknown Organization [facility] Address [address] [place] [address]- Care Team Providers Care Cooker Syrup Name Role Phone Millie Burden MD Primary Care Physician [phone] Encounter [facility] Date(s): 05/12/23 - 06/11/23 [facility] [address] [place] [phone]- Attending Physician: Ruthie Vidales Admitting Physician: Ruthie Vidales Referring Physician: Ruthie Vidales Problem List Condition Confirmation Course Effective Dates Status Health St atus Informant Obese class I Confirmed Active Patient Care team information Care Team Personnel Name: Millie Burden MD Position: [facility] Outreach Member Role: PCP Address: Address: [address] [place] [address] [address] Millie Burden MD [place], [place] [address]
--- OUTSIDE RECORDS SUMMARY | 2023-08-12 12:25 | XMS_ITS | Continuity of Care Document ---
Author Name Unknown Organization [facility] Address [address] [place] [address]- Care Team Providers Care Waterworks Operator Name Role Phone Millie Burden MD Primary Care Physician Encounter [facility] [place] Date(s): 06/24/23 - 07/24/23 [facility] [address] [place] [phone]- [place] Patient Care team information Care Team Personnel Name: Millie Burden MD Position: [facility] Outreach Member Role: PCP Address: Address: [address] [place] [address] [address] Millie Burden [place], [place] [address]
--- NOTE | 2023-08-12 12:40 | PC.NURSE ---
awaiting provider bulmaro abernathy response r: insulin as pt has multiple orders (one sliding scale, one standing 8 units lispro). holding insulin until hearing back
[2023-08-12] MEDS: Heparin Sodium,Porcine 5,000 UNIT/ML VIAL 5000 UNIT SUBCUT (12:49)
[2023-08-12 13:22] LABS: Glucose, Whole Blood 146 mg/dL (60-115)
[2023-08-12 13:34] LABS: MANUAL DIFF FLAG NO
[2023-08-12 13:38] LABS: Basophils Absolute Auto 0.1 X10*3/uL (0.0-0.2); Basophils Percent Auto 0.8 % (0-2); Eosinophils Absolute Auto 0.1 X10*3/uL (0.0-0.4); Eosinophils Percent Auto 1.2 % (0-4); Hematocrit 41.4 % (42.0-52.0); Hemoglobin 14.2 g/dl (14.0-18.0); Imm Gran Abs Auto 0.02 X10*3/uL (0.00-0.03); Imm Gran Pct Auto 0.3 % (0.0-0.4); Lymphocytes Absolute Auto 1.7 X10*3/uL (1.2-4.9); Lymphocytes Percent Auto 26.2 % (20-40); Mean Corpuscular HGB Conc 34.3 g/dl (31.0-36.0); Mean Corpuscular Hemoglobin 29.1 pg (27.0-33.0); Mean Corpuscular Volume 84.8 fL (80.0-98.0); Mean Platelet Volume 9.3 fL (9.4-12.4); Monocytes Absolute Auto 0.5 X10*3/uL (0.1-1.2); Monocytes Percent Auto 7.2 % (2-11); Neutrophils Absolute Auto 4.2 x10*3/uL (2.0-8.3); Neutrophils Percent Auto 64.3 % (45-73); Platelet Count 239 X10*3/uL (160-400); Red Blood Count 4.88 X10*6/uL (4.60-5.80); White Blood Count 6.5 X10*3/uL (4.8-10.8)
[2023-08-12 13:50] LABS: Estimated Average Glucose 157 mg/dL; Hemoglobin A1c % 7.1 % (<6.0)
[2023-08-12 13:55] LABS: Anion Gap 16 (12-20); Blood Urea Nitrogen 11 mg/dL (9-16); Calcium 9.6 mg/dL (8.4-10.2); Carbon Dioxide 24 mmol/L (22-29); Chloride 97 mmol/L (96-108); Creatinine Clr Calc Pharmacy 84.4; Estimated Glomerular Filt Rate > 60; Glucose Random 137 mg/dL (60-115); Sodium 133 mmol/L (135-145)
[2023-08-12 14:00] VITALS: BP 106/53; PULSE 76; RESP 17; TEMP 36.4; O2SAT 96
[2023-08-12 14:11] LABS: Thyroid Stimulating Hormone 1.25 uIU/mL (0.32-4.0)
--- NOTE | 2023-08-12 16:30 | MHC.EDTECH ---
poc = 95 rn aware
--- NOTE | 2023-08-12 16:44 | PC.NURSE ---
called pharmacy to double check some medications that were not updated on med rec- all meds that pt has listed in his MAR are up to date and no other ones are missing that pt has at pharmacy.
[2023-08-12 17:10] LABS: Glucose, Whole Blood 109 mg/dL (60-115)
--- NOTE | 2023-08-12 17:20 | MHC.EDTECH ---
pt ate 100% of his dinner. 240cc of soda and juice
--- NOTE | 2023-08-12 18:20 | PC.NURSE ---
voided clear yellow urine in urinal. sitting in chair listening to tv. no distress
[2023-08-12 20:12] LABS: Glucose, Whole Blood 151 mg/dL (60-115)
[2023-08-12] MEDS: QUEtiapine Fumarate 50 MG TABLET PO (20:13)
[2023-08-12] MEDS: Insulin Glargine,Hum.rec.anlog 100 UNIT/ML 10 ML VIAL 25 UNIT SUBCUT (20:15)
[2023-08-12] MEDS: 0.9 % Sodium Chloride Flush 3 ML SYRINGE IVFLUSH (20:16)
[2023-08-12 20:54] VITALS: BP 136/69; PULSE 82; RESP 20; TEMP 37.5; O2SAT 96
[2023-08-12 21:06] LABS: Glucose, Whole Blood 145 mg/dL (60-115)
[2023-08-12 21:58] VITALS: BMI 24.0
[2023-08-13] MEDS: Heparin Sodium,Porcine 5,000 UNIT/ML VIAL 5000 UNIT SUBCUT ×3 (01:46→23:52)
[2023-08-13 03:28] VITALS: BP 100/57; PULSE 81; RESP 16; TEMP 36.2; O2SAT 97
[2023-08-13 06:49] LABS: Hematocrit 41.7 % (42.0-52.0); Hemoglobin 14.2 g/dl (14.0-18.0); Mean Corpuscular HGB Conc 34.1 g/dl (31.0-36.0); Mean Corpuscular Hemoglobin 29.5 pg (27.0-33.0); Mean Corpuscular Volume 86.7 fL (80.0-98.0); Mean Platelet Volume 9.7 fL (9.4-12.4); Platelet Count 243 X10*3/uL (160-400); Red Blood Count 4.81 X10*6/uL (4.60-5.80); Red Cell Distribution Width 13.2 % (11.0-16.0); White Blood Count 8.5 X10*3/uL (4.8-10.8)
[2023-08-13 07:00] LABS: Anion Gap 13 (12-20); Blood Urea Nitrogen 13 mg/dL (9-16); Calcium 9.6 mg/dL (8.4-10.2); Carbon Dioxide 26 mmol/L (22-29); Chloride 101 mmol/L (96-108); Cholesterol 115 mg/dL (<200); Creatinine Clr Calc Pharmacy 87.5; Estimated Glomerular Filt Rate > 60; Glucose Random 77 mg/dL (60-115); HDL Cholesterol 32 mg/dL (>40); LDL Cholesterol Calculated 58 mg/dL (<100); Potassium 3.9 mmol/L (3.3-5.1); Sodium 136 mmol/L (135-145); Triglycerides 125 mg/dL (<150)
[2023-08-13 07:11] LABS: Estimated Average Glucose 157 mg/dL; Hemoglobin A1c % 7.1 % (<6.0)
[2023-08-13 07:15] LABS: Thyroid Stimulating Hormone 2.15 uIU/mL (0.32-4.0)
[2023-08-13 07:38] VITALS: BP 114/65; PULSE 72; RESP 17; TEMP 36.2; O2SAT 95
[2023-08-13 07:46] LABS: Glucose, Whole Blood 83 mg/dL (60-115)
--- NOTE | 2023-08-13 09:35 | P.PNIM_ITS ---
Subjective Subjective Date of Service: 08/13/23 Review of Systems Follow up guardianship FTT Physical Exam 2 Vital Signs: Vital Signs: Last Vital Signs Temp 97.2 F 08/13/23 07:38 Pulse 72 08/13/23 07:38 Resp 17 08/13/23 07:38 BP 114/65 08/13/23 07:38 Pulse Ox 95 08/13/23 07:38 O2 Del Method Room Air 08/13/23 07:38 BMI result Body Mass Index 24.0 Appearing in no acute distress lung sounds are clear to auscultation heart regular rate rhythm, clear S1, S2 positive bowel sounds, abdomen is soft, nontender neuro patient is alert x3, no focal deficits Objective Data Active Medications Acetaminophen (Acetaminophen 325 Mg Tablet) 650 mg PO Q6H PRN PRN Reason: Pain, Mild (Pain Scale 1-3) Atorvastatin Calcium (Atorvastatin Calcium 40 Mg Tablet) 40 mg PO DAILY [facility] Last Admin: 08/12/23 07:56 Dose: 40 mg Documented By: MARIELLE Dextrose (Dextrose 50 % 25 Gm/50 Ml Syringe) 25 gm IVPUSH Q15M PRN; Protocol PRN Reason: per Hypoglycemia Standing Ord. Escitalopram Oxalate (Escitalopram Oxalate 10 Mg Tablet) 10 mg PO DAILY [facility] Last Admin: 08/12/23 07:56 Dose: 10 mg Documented By: MARIELLE Finasteride (Finasteride 5 Mg Tablet) 5 mg PO DAILY [facility] Last Admin: 08/12/23 07:56 Dose: 5 mg Documented By: MARIELLE Glucose (Glucose Gel 15 Gm Gel..Gram.) 15 gm PO Q15M PRN; Protocol PRN Reason: per Hypoglycemia Standing Ord. Heparin Sodium (Porcine) (Heparin Sodium,Porcine 5,000 Unit/Ml Vial) 5,000 unit SUBCUT Q12H [facility] Last Admin: 08/13/23 01:46 Dose: 5,000 unit Documented By: SARA Insulin Glargine (Insulin Glargine,Hum.Rec.Anlog 100 Unit/Ml 10 Ml Vial) 25 unit SUBCUT BEDTIME [facility] Last Admin: 08/12/23 20:15 Dose: 25 unit Documented By: JEANNE Insulin Human Lispro (Insulin Lispro 100 Unit/Ml 3 Ml Vial) 0 unit SUBCUT QIDACHS [facility]; Protocol Last Admin: 08/13/23 07:50 Dose: Not Given Documented By: TEE Non-Admin Reason: No Insulin Coverage Losartan Potassium (Losartan Potassium 25 Mg Tablet) 25 mg PO DAILY [facility]; Protocol Last Admin: 08/12/23 07:56 Dose: 25 mg Documented By: MARIELLE Metformin HCl (Metformin Hcl 1,000 Mg Tablet) 1,000 mg PO BIDWM [facility] Last Admin: 08/12/23 18:09 Dose: 1,000 mg Documented By: LIZANDRO Ondansetron HCl (Ondansetron Hcl 4 Mg/2 Ml Vial) 4 mg IVPUSH Q8H PRN PRN Reason: Nausea and Vomiting Quetiapine Fumarate (Quetiapine Fumarate 50 Mg Tablet) 50 mg PO BEDTIME [facility] Last Admin: 08/12/23 20:13 Dose: 50 mg Documented By: JEANNE Sodium Chloride (0.9 % Sodium Chloride Flush 3 Ml Syringe) 3 ml IVFLUSH QSHIFT [facility] Last Admin: 08/12/23 20:16 Dose: 3 ml Documented By: JEANNE Labs 08/13/23 05:45 08/13/23 05:45 Labs: Laboratory Results - last 24 hr 08/12/23 08/12/23 08/12/23 12:46 13:14 17:05 MCV 84.8 MCH 29.1 MCHC 34.3 RDW 13.0 Plt Count 239 MPV 9.3 L Immature Gran % (Auto) 0.3 Neut % (Auto) 64.3 Lymph % (Auto) 26.2 [place] % (Auto) 7.2 Eos % (Auto) 1.2 Baso % (Auto) 0.8 Lymph # (Auto) 1.7 [place] # (Auto) 0.5 Eos # (Auto) 0.1 Baso # (Auto) 0.1 Abs Immat Gran (auto) 0.02 Absolute Neuts (auto) 4.2 Absolute Nucleated RBC 0.000 Nucleated RBC % (auto) 0.0 Anion Gap 16 Estim Creat Clear Calc 84.4 Estimated GFR > 60 POC Glucose 146 H 109 Random Glucose 137 H Estimat Average Glucose 157 Hemoglobin A1c % 7.1 H Calcium 9.6 D Triglycerides Cholesterol LDL Cholesterol, Calc HDL Cholesterol TSH 1.25 08/12/23 08/12/23 08/13/23 20:08 20:56 05:45 MCV 86.7 MCH 29.5 MCHC 34.1 RDW 13.2 Plt Count 243 MPV 9.7 Immature Gran % (Auto) Neut % (Auto) Lymph % (Auto) [place] % (Auto) Eos % (Auto) Baso % (Auto) Lymph # (Auto) [place] # (Auto) Eos # (Auto) Baso # (Auto) Abs Immat Gran (auto) Absolute Neuts (auto) Absolute Nucleated RBC 0.000 Nucleated RBC % (auto) 0.0 Anion Gap 13 Estim Creat Clear Calc 87.5 Estimated GFR > 60 POC Glucose 151 H 145 H Random Glucose 77 Estimat Average Glucose 157 Hemoglobin A1c % 7.1 H Calcium 9.6 Triglycerides 125 Cholesterol 115 LDL Cholesterol, Calc 58 HDL Cholesterol 32 L TSH 2.15 08/13/23 07:41 MCV MCH MCHC RDW Plt Count MPV Immature Gran % (Auto) Neut % (Auto) Lymph % (Auto) [place] % (Auto) Eos % (Auto) Baso % (Auto) Lymph # (Auto) [place] # (Auto) Eos # (Auto) Baso # (Auto) Abs Immat Gran (auto) Absolute Neuts (auto) Absolute Nucleated RBC Nucleated RBC % (auto) Anion Gap Estim Creat Clear Calc Estimated GFR POC Glucose 83 Random Glucose Estimat Average Glucose Hemoglobin A1c % Calcium Triglycerides Cholesterol LDL Cholesterol, Calc HDL Cholesterol TSH Assessment and Plan (1) Major neurocognitive disorder due to another medical condition: Status: Acute Plan 73-year-old man presented to the ER on 07/26/2023 initially with suicide ideation but then denied. Patient found to require guardianship, was found to have no competency. Court date for guardianship is pending inpatient will be admitted. Failure to thrive History of dementia Supportive care Plan for guardianship, court date August 15 Hypertension Stable blood pressure Continue losartan Diabetes mellitus type 2 Sliding scale, ADA diet Continue Lantus, metformin, mealtime insulin Check A1c Hyperlipidemia Aspirin and statin Mental health Continue home medications BPH Continue finasteride DVT prophylaxis with heparin Attending Dr. Shepard Full code Patient admitted for guardianship court date August 15 Quality Stroke Does the patient have a stroke diagnosis?: No VTE Prior VTE?: No VTE Risk Level:: Medical - moderate - high VTE Device Contraindication: Treatment Not Tolerated VTE Drug Contraindication: N/A - Med Ordered
[2023-08-13] MEDS: metFORMIN HCl 1,000 MG TABLET 1000 MG PO ×2 (09:49→17:24)
[2023-08-13] MEDS: Atorvastatin Calcium 40 MG TABLET PO (09:49)
[2023-08-13] MEDS: Finasteride 5 MG TABLET PO (09:49)
[2023-08-13] MEDS: Escitalopram Oxalate 10 MG TABLET PO (09:49)
[2023-08-13] MEDS: Losartan Potassium 25 MG TABLET PO (09:49)
[2023-08-13] MEDS: 0.9 % Sodium Chloride Flush 3 ML SYRINGE IVFLUSH ×3 (09:50→21:14)
[2023-08-13 11:13] LABS: Glucose, Whole Blood 158 mg/dL (60-115)
[2023-08-13] MEDS: Insulin Lispro 100 UNIT/ML 3 ML VIAL SUBCUT (12:13)
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
[2023-08-13 16:00] VITALS: BP 118/56; PULSE 85; RESP 16; TEMP 36.8; O2SAT 95
[2023-08-13 16:24] LABS: Glucose, Whole Blood 129 mg/dL (60-115)
[2023-08-13] MEDS: Acetaminophen 325 MG TABLET 650 MG PO (16:34)
[2023-08-13 19:48] VITALS: BP 121/65; PULSE 79; RESP 18; TEMP 37.1; O2SAT 97
[2023-08-13 20:41] LABS: Glucose, Whole Blood 137 mg/dL (60-115)
[2023-08-13] MEDS: Insulin Glargine,Hum.rec.anlog 100 UNIT/ML 10 ML VIAL 25 UNIT SUBCUT (21:14)
[2023-08-13] MEDS: QUEtiapine Fumarate 50 MG TABLET PO (21:14)
[2023-08-14 03:41] VITALS: BP 103/52; PULSE 71; RESP 18; TEMP 36.1; O2SAT 95
[2023-08-14 07:16] VITALS: BP 115/59; PULSE 73; RESP 16; TEMP 36.3; O2SAT 96
[2023-08-14 07:46] LABS: Glucose, Whole Blood 118 mg/dL (60-115)
[2023-08-14 07:53] LABS: Estimated Glomerular Filt Rate > 60
--- NOTE | 2023-08-14 09:18 | P.PNIM_ITS ---
Subjective Subjective Date of Service: 08/14/23 Review of Systems Follow up guardianship FTT Pleasantly confused this morning. Knows his name and where he is but otherwise not providing much history Review of Systems: Yes Unobtainable due to mental status Physical Exam 2 Vital Signs: Vital Signs: Last Vital Signs Temp 97.4 F 08/14/23 07:16 Pulse 73 08/14/23 07:16 Resp 16 08/14/23 07:16 BP 115/59 L 08/14/23 07:16 Pulse Ox 96 08/14/23 07:16 O2 Del Method Room Air 08/14/23 07:16 BMI result Body Mass Index 24.0 Constitutional - Awake and Alert, No apparent distress Eyes - PERRLA, EOMI Cardiovascular - S1S2, RRR, No edema Respiratory - Normal lung expansion, Normal respiratory effort, No respiratory distress, CTA bilaterally Gastrointestinal - NT / ND; +BS; No rebound or guarding Extremities - no calf tenderness bilaterally, no swelling Skin - Warm/Dry Neurological - Alert & oriented x3 Psychological - Appropriate affect Objective Data Active Medications Acetaminophen (Acetaminophen 325 Mg Tablet) 650 mg PO Q6H PRN PRN Reason: Pain, Mild (Pain Scale 1-3) Last Admin: 08/13/23 16:34 Dose: 650 mg Documented By: GEOFFREY Atorvastatin Calcium (Atorvastatin Calcium 40 Mg Tablet) 40 mg PO DAILY [facility] Last Admin: 08/13/23 09:49 Dose: 40 mg Documented By: TEE Dextrose (Dextrose 50 % 25 Gm/50 Ml Syringe) 25 gm IVPUSH Q15M PRN; Protocol PRN Reason: per Hypoglycemia Standing Ord. Escitalopram Oxalate (Escitalopram Oxalate 10 Mg Tablet) 10 mg PO DAILY [facility] Last Admin: 08/13/23 09:49 Dose: 10 mg Documented By: TEE Finasteride (Finasteride 5 Mg Tablet) 5 mg PO DAILY [facility] Last Admin: 08/13/23 09:49 Dose: 5 mg Documented By: TEE Glucose (Glucose Gel 15 Gm Gel..Gram.) 15 gm PO Q15M PRN; Protocol PRN Reason: per Hypoglycemia Standing Ord. Heparin Sodium (Porcine) (Heparin Sodium,Porcine 5,000 Unit/Ml Vial) 5,000 unit SUBCUT Q12H [facility] Last Admin: 08/13/23 23:52 Dose: 5,000 unit Documented By: ALLYN Insulin Glargine (Insulin Glargine,Hum.Rec.Anlog 100 Unit/Ml 10 Ml Vial) 25 unit SUBCUT BEDTIME [facility] Last Admin: 08/13/23 21:14 Dose: 25 unit Documented By: ALLYN Insulin Human Lispro (Insulin Lispro 100 Unit/Ml 3 Ml Vial) 0 unit SUBCUT QIDACHS [facility]; Protocol Last Admin: 08/14/23 07:50 Dose: Not Given Documented By: WALT Non-Admin Reason: No Insulin Coverage Losartan Potassium (Losartan Potassium 25 Mg Tablet) 25 mg PO DAILY [facility]; Protocol Last Admin: 08/13/23 09:49 Dose: 25 mg Documented By: TEE Metformin HCl (Metformin Hcl 1,000 Mg Tablet) 1,000 mg PO BIDWM [facility] Last Admin: 08/13/23 17:24 Dose: 1,000 mg Documented By: GEOFFREY Ondansetron HCl (Ondansetron Hcl 4 Mg/2 Ml Vial) 4 mg IVPUSH Q8H PRN PRN Reason: Nausea and Vomiting Quetiapine Fumarate (Quetiapine Fumarate 50 Mg Tablet) 50 mg PO BEDTIME [facility] Last Admin: 08/13/23 21:14 Dose: 50 mg Documented By: ALLYN Sodium Chloride (0.9 % Sodium Chloride Flush 3 Ml Syringe) 3 ml IVFLUSH QSHIFT [facility] Last Admin: 08/13/23 21:14 Dose: 3 ml Documented By: ALLYN Labs 08/13/23 05:45 08/14/23 07:05 Labs: Laboratory Results - last 24 hr 08/13/23 08/13/23 08/13/23 11:07 16:12 20:35 Estim Creat Clear Calc Estimated GFR POC Glucose 158 H 129 H 137 H 08/14/23 08/14/23 07:05 07:20 Estim Creat Clear Calc 77.0 Estimated GFR > 60 POC Glucose 118 H Assessment and Plan (1) Major neurocognitive disorder due to another medical condition: Status: Acute Plan 73-year-old man presented to the ER on 07/26/2023 initially with suicide ideation but then denied. Patient found to require guardianship, was found to have no competency. Court date for guardianship is pending inpatient will be admitted. Failure to thrive History of dementia Supportive care Plan for guardianship, court date August 15 Hypertension Stable blood pressure Continue losartan Diabetes mellitus type 2 Sliding scale, ADA diet Continue Lantus, metformin, mealtime insulin A1c 7.1, controlled given patient's age Hyperlipidemia Aspirin and statin Mental health Continue home medications BPH Continue finasteride DVT prophylaxis with heparin Attending Dr. Shepard Full code Patient admitted for guardianship court date August 15. No capacity per psychiatry Quality Stroke Does the patient have a stroke diagnosis?: No VTE Prior VTE?: No VTE Risk Level:: Medical - moderate - high VTE Device Contraindication: Treatment Not Tolerated VTE Drug Contraindication: N/A - Med Ordered
[2023-08-14] MEDS: Escitalopram Oxalate 10 MG TABLET PO (10:34)
[2023-08-14] MEDS: Finasteride 5 MG TABLET PO (10:34)
[2023-08-14] MEDS: Atorvastatin Calcium 40 MG TABLET PO (10:34)
[2023-08-14] MEDS: metFORMIN HCl 1,000 MG TABLET 1000 MG PO ×2 (10:35→17:13)
[2023-08-14] MEDS: 0.9 % Sodium Chloride Flush 3 ML SYRINGE IVFLUSH ×3 (10:35→21:24)
[2023-08-14 10:38] VITALS: BP 100/56; PULSE 80
[2023-08-14 11:31] LABS: Glucose, Whole Blood 228 mg/dL (60-115)
[2023-08-14] MEDS: Insulin Lispro 100 UNIT/ML 3 ML VIAL SUBCUT (12:07)
[2023-08-14] MEDS: Heparin Sodium,Porcine 5,000 UNIT/ML VIAL 5000 UNIT SUBCUT ×2 (12:23→23:51)
--- NOTE | 2023-08-14 12:41 | PC.NURSE ---
Sarita Aponte made aware Alva held this AM due to soft BP 100/56 HR 80, pt asymptomatic.
[2023-08-14 15:36] VITALS: BP 106/55; PULSE 78; RESP 18; TEMP 36.4; O2SAT 97
[2023-08-14 16:48] LABS: Glucose, Whole Blood 144 mg/dL (60-115)
[2023-08-14 16:59] LABS: Glucose, Whole Blood 142 mg/dL (60-115)
[2023-08-14 19:19] VITALS: BP 100/54; PULSE 80; RESP 18; TEMP 36.4; O2SAT 95
[2023-08-14 19:56] LABS: Glucose, Whole Blood 128 mg/dL (60-115)
[2023-08-14] MEDS: Insulin Glargine,Hum.rec.anlog 100 UNIT/ML 10 ML VIAL 25 UNIT SUBCUT (21:23)
[2023-08-14] MEDS: QUEtiapine Fumarate 50 MG TABLET PO (21:23)
[2023-08-15 03:11] VITALS: BP 114/54; PULSE 78; RESP 16; TEMP 36.1; O2SAT 97
[2023-08-15 06:41] VITALS: BP 115/60; PULSE 79; RESP 16; TEMP 36.6; O2SAT 96
[2023-08-15 06:54] LABS: Glucose, Whole Blood 98 mg/dL (60-115)
[2023-08-15] MEDS: Finasteride 5 MG TABLET PO (07:48)
[2023-08-15] MEDS: 0.9 % Sodium Chloride Flush 3 ML SYRINGE IVFLUSH ×3 (07:48→20:21)
[2023-08-15] MEDS: Losartan Potassium 25 MG TABLET PO (07:48)
[2023-08-15] MEDS: metFORMIN HCl 1,000 MG TABLET 1000 MG PO ×2 (07:48→17:38)
[2023-08-15] MEDS: Atorvastatin Calcium 40 MG TABLET PO (07:48)
[2023-08-15] MEDS: Escitalopram Oxalate 10 MG TABLET PO (07:48)
[2023-08-15 11:08] LABS: Glucose, Whole Blood 127 mg/dL (60-115)
--- NOTE | 2023-08-15 11:35 | MHC.CM.PN ---
guardianship easement man in today to see pt
[2023-08-15] MEDS: Heparin Sodium,Porcine 5,000 UNIT/ML VIAL 5000 UNIT SUBCUT ×2 (14:42→23:50)
--- NOTE | 2023-08-15 14:56 | P.PNIM_ITS ---
Subjective Subjective Date of Service: 08/15/23 Interval History: No acute issues overnight. Awaiting guardianship Review of Systems Denies chest pain Denies shortness of breath Denies nausea vomiting diarrhea Denies fever chills Physical Exam 2 Vital Signs: Vital Signs: Last Vital Signs Temp 98 F 08/15/23 06:41 Pulse 79 08/15/23 06:41 Resp 16 08/15/23 06:41 BP 115/60 08/15/23 06:41 Pulse Ox 96 08/15/23 06:41 O2 Del Method Room Air 08/15/23 06:41 BMI result Body Mass Index 24.0 Const: Other: Awake alert confused no acute distress Resp: Other: Clear to auscultation bilaterally no rales rhonchi or wheezes Cardio: Other: No S4; positive S1-S2; no S3 murmurs rubs or gallops GI: Other: Soft nontender nondistended bowel sounds Extrem: Other: No edema bilaterally Objective Data Active Medications Acetaminophen (Acetaminophen 325 Mg Tablet) 650 mg PO Q6H PRN PRN Reason: Pain, Mild (Pain Scale 1-3) Last Admin: 08/13/23 16:34 Dose: 650 mg Documented By: GEOFFREY Atorvastatin Calcium (Atorvastatin Calcium 40 Mg Tablet) 40 mg PO DAILY [facility] Last Admin: 08/15/23 07:48 Dose: 40 mg Documented By: GEOFFREY Dextrose (Dextrose 50 % 25 Gm/50 Ml Syringe) 25 gm IVPUSH Q15M PRN; Protocol PRN Reason: per Hypoglycemia Standing Ord. Escitalopram Oxalate (Escitalopram Oxalate 10 Mg Tablet) 10 mg PO DAILY [facility] Last Admin: 08/15/23 07:48 Dose: 10 mg Documented By: GEOFFREY Finasteride (Finasteride 5 Mg Tablet) 5 mg PO DAILY [facility] Last Admin: 08/15/23 07:48 Dose: 5 mg Documented By: GEOFFREY Glucose (Glucose Gel 15 Gm Gel..Gram.) 15 gm PO Q15M PRN; Protocol PRN Reason: per Hypoglycemia Standing Ord. Heparin Sodium (Porcine) (Heparin Sodium,Porcine 5,000 Unit/Ml Vial) 5,000 unit SUBCUT Q12H [facility] Last Admin: 08/15/23 14:42 Dose: 5,000 unit Documented By: GEOFFREY Insulin Glargine (Insulin Glargine,Hum.Rec.Anlog 100 Unit/Ml 10 Ml Vial) 25 unit SUBCUT BEDTIME [facility] Last Admin: 08/14/23 21:23 Dose: 25 unit Documented By: ENEDINA Insulin Human Lispro (Insulin Lispro 100 Unit/Ml 3 Ml Vial) 0 unit SUBCUT QIDACHS [facility]; Protocol Last Admin: 08/15/23 11:12 Dose: Not Given Documented By: GEOFFREY Non-Admin Reason: No Insulin Coverage Losartan Potassium (Losartan Potassium 25 Mg Tablet) 25 mg PO DAILY [facility]; Protocol Last Admin: 08/15/23 07:48 Dose: 25 mg Documented By: GEOFFREY Metformin HCl (Metformin Hcl 1,000 Mg Tablet) 1,000 mg PO BIDWM [facility] Last Admin: 08/15/23 07:48 Dose: 1,000 mg Documented By: GEOFFREY Ondansetron HCl (Ondansetron Hcl 4 Mg/2 Ml Vial) 4 mg IVPUSH Q8H PRN PRN Reason: Nausea and Vomiting Quetiapine Fumarate (Quetiapine Fumarate 50 Mg Tablet) 50 mg PO BEDTIME [facility] Last Admin: 08/14/23 21:23 Dose: 50 mg Documented By: ENEDINA Sodium Chloride (0.9 % Sodium Chloride Flush 3 Ml Syringe) 3 ml IVFLUSH QSHIFT [facility] Last Admin: 08/15/23 07:48 Dose: 3 ml Documented By: GEOFFREY Labs 08/13/23 05:45 08/14/23 07:05 Labs: Laboratory Results - last 24 hr 08/14/23 08/14/23 08/14/23 16:11 16:45 19:49 POC Glucose 142 H 144 H 128 H 08/15/23 08/15/23 06:41 10:58 POC Glucose 98 127 H Assessment and Plan (1) Major neurocognitive disorder due to another medical condition: Status: Acute Plan 73-year-old man presented to the ER on 07/26/2023 initially with suicide ideation but then denied. Patient found to require guardianship, was found to have no competency. Court date for guardianship is pending inpatient will be admitted. 1.Failure to thrive -History of dementia -Plan for guardianship, court date August 15 2.Hypertension -acceptable control on current therapy -adjust as indicated 3.Diabetes mellitus type 2 -acceptable control on current therapies -lispro correctional scale -adjust as indicated Heparin Full code Patient admitted for guardianship court date August 15. No capacity per psychiatry Quality Stroke Does the patient have a stroke diagnosis?: No VTE Prior VTE?: No VTE Risk Level:: Medical - moderate - high VTE Device Contraindication: Treatment Not Tolerated VTE Drug Contraindication: N/A - Med Ordered
[2023-08-15 16:00] VITALS: BP 126/60; PULSE 77; RESP 18; TEMP 36.7; O2SAT 97
[2023-08-15 17:10] LABS: Glucose, Whole Blood 124 mg/dL (60-115)
[2023-08-15 19:08] VITALS: BP 108/55; PULSE 87; RESP 18; TEMP 36.5; O2SAT 96
[2023-08-15 20:12] LABS: Glucose, Whole Blood 182 mg/dL (60-115)
[2023-08-15] MEDS: QUEtiapine Fumarate 50 MG TABLET PO (20:21)
[2023-08-15] MEDS: Insulin Glargine,Hum.rec.anlog 100 UNIT/ML 10 ML VIAL 25 UNIT SUBCUT (20:21)
[2023-08-15] MEDS: Insulin Lispro 100 UNIT/ML 3 ML VIAL SUBCUT (20:21)
[2023-08-16 03:33] VITALS: BP 97/55; PULSE 70; RESP 16; TEMP 36.2; O2SAT 95
[2023-08-16 07:35] VITALS: BP 137/72; PULSE 76; RESP 16; TEMP 36.2; O2SAT 99
[2023-08-16 07:36] LABS: Glucose, Whole Blood 96 mg/dL (60-115)
[2023-08-16] MEDS: Losartan Potassium 25 MG TABLET PO (08:22)
[2023-08-16] MEDS: 0.9 % Sodium Chloride Flush 3 ML SYRINGE IVFLUSH ×3 (08:22→20:42)
[2023-08-16] MEDS: metFORMIN HCl 1,000 MG TABLET 1000 MG PO ×2 (08:22→17:05)
[2023-08-16] MEDS: Atorvastatin Calcium 40 MG TABLET PO (08:22)
[2023-08-16] MEDS: Finasteride 5 MG TABLET PO (08:22)
[2023-08-16] MEDS: Escitalopram Oxalate 10 MG TABLET PO (08:22)
[2023-08-16 11:15] LABS: Glucose, Whole Blood 222 mg/dL (60-115)
[2023-08-16] MEDS: Insulin Lispro 100 UNIT/ML 3 ML VIAL SUBCUT ×2 (11:38→20:42)
[2023-08-16] MEDS: Heparin Sodium,Porcine 5,000 UNIT/ML VIAL 5000 UNIT SUBCUT ×2 (12:17→23:51)
--- NOTE | 2023-08-16 13:57 | HO.PM.IMPN ---
Subjective Subjective Date of Service: 08/16/23 Interval History: No acute issues overnight. Awaiting placement Review of Systems Denies chest pain Denies shortness of breath Denies nausea vomiting diarrhea Denies fever chills Physical Exam Vital Signs: Vital Signs: Last Vital Signs Temp 97.1 F 08/16/23 07:35 Pulse 76 08/16/23 07:35 Resp 16 08/16/23 07:35 BP 137/72 08/16/23 07:35 Pulse Ox 99 08/16/23 07:35 O2 Del Method Room Air 08/16/23 07:35 BMI result Body Mass Index 24.0 Const: Other: Awake alert confused no acute distress Resp: Other: Clear to auscultation bilaterally no rales rhonchi or wheezes Cardio: Other: No S4; positive S1-S2; no S3 murmurs rubs or gallops GI: Other: Soft nontender nondistended bowel sounds Extrem: Other: No edema bilaterally Objective Data Active Medications Acetaminophen (Acetaminophen 325 Mg Tablet) 650 mg PO Q6H PRN PRN Reason: Pain, Mild (Pain Scale 1-3) Last Admin: 08/13/23 16:34 Dose: 650 mg Documented By: GEOFFREY Atorvastatin Calcium (Atorvastatin Calcium 40 Mg Tablet) 40 mg PO DAILY [facility] Last Admin: 08/16/23 08:22 Dose: 40 mg Documented By: BRANDON Dextrose (Dextrose 50 % 25 Gm/50 Ml Syringe) 25 gm IVPUSH Q15M PRN; Protocol PRN Reason: per Hypoglycemia Standing Ord. Escitalopram Oxalate (Escitalopram Oxalate 10 Mg Tablet) 10 mg PO DAILY [facility] Last Admin: 08/16/23 08:22 Dose: 10 mg Documented By: BRANDON Finasteride (Finasteride 5 Mg Tablet) 5 mg PO DAILY [facility] Last Admin: 08/16/23 08:22 Dose: 5 mg Documented By: BRANDON Glucose (Glucose Gel 15 Gm Gel..Gram.) 15 gm PO Q15M PRN; Protocol PRN Reason: per Hypoglycemia Standing Ord. Heparin Sodium (Porcine) (Heparin Sodium,Porcine 5,000 Unit/Ml Vial) 5,000 unit SUBCUT Q12H [facility] Last Admin: 08/16/23 12:17 Dose: 5,000 unit Documented By: BRANDON Insulin Glargine (Insulin Glargine,Hum.Rec.Anlog 100 Unit/Ml 10 Ml Vial) 25 unit SUBCUT BEDTIME [facility] Last Admin: 08/15/23 20:21 Dose: 25 unit Documented By: LAUREN Insulin Human Lispro (Insulin Lispro 100 Unit/Ml 3 Ml Vial) 0 unit SUBCUT QIDACHS [facility]; Protocol Last Admin: 08/16/23 11:38 Dose: 4 unit Documented By: BRANDON Losartan Potassium (Losartan Potassium 25 Mg Tablet) 25 mg PO DAILY [facility]; Protocol Last Admin: 08/16/23 08:22 Dose: 25 mg Documented By: BRANDON Metformin HCl (Metformin Hcl 1,000 Mg Tablet) 1,000 mg PO BIDWM [facility] Last Admin: 08/16/23 08:22 Dose: 1,000 mg Documented By: BRANDON Ondansetron HCl (Ondansetron Hcl 4 Mg/2 Ml Vial) 4 mg IVPUSH Q8H PRN PRN Reason: Nausea and Vomiting Quetiapine Fumarate (Quetiapine Fumarate 50 Mg Tablet) 50 mg PO BEDTIME [facility] Last Admin: 08/15/23 20:21 Dose: 50 mg Documented By: LAUREN Sodium Chloride (0.9 % Sodium Chloride Flush 3 Ml Syringe) 3 ml IVFLUSH QSHIFT [facility] Last Admin: 08/16/23 08:22 Dose: 3 ml Documented By: BRANDON Labs 08/13/23 05:45 08/14/23 07:05 Labs: Laboratory Results - last 24 hr 08/15/23 08/15/23 08/16/23 17:04 20:05 07:32 POC Glucose 124 H 182 H 96 08/16/23 11:00 POC Glucose 222 H Assessment and Plan (1) Major neurocognitive disorder due to another medical condition: Status: Acute Plan 73-year-old man presented to the ER on 07/26/2023 initially with suicide ideation but then denied. Patient found to require guardianship, was found to have no competency. Court date for guardianship is pending inpatient will be admitted. 1.Failure to thrive -History of dementia -Plan for guardianship, court date August 15 2.Hypertension -acceptable control on current therapy -adjust as indicated 3.Diabetes mellitus type 2 -acceptable control on current therapies -lispro correctional scale -adjust as indicated Heparin Full code Patient admitted for guardianship court date August 15. No capacity per psychiatry Quality Stroke Does the patient have a stroke diagnosis?: No VTE Prior VTE?: No VTE Risk Level:: Medical - moderate - high VTE Device Contraindication: Treatment Not Tolerated VTE Drug Contraindication: N/A - Med Ordered
[2023-08-16 16:00] VITALS: BP 126/60; PULSE 72; RESP 16; TEMP 36.2; O2SAT 94
[2023-08-16 16:46] LABS: Glucose, Whole Blood 117 mg/dL (60-115)
[2023-08-16 19:30] VITALS: BP 117/59; PULSE 86; RESP 18; TEMP 36.9; O2SAT 96
[2023-08-16 20:30] LABS: Glucose, Whole Blood 188 mg/dL (60-115)
[2023-08-16] MEDS: QUEtiapine Fumarate 50 MG TABLET PO (20:42)
[2023-08-16] MEDS: Insulin Glargine,Hum.rec.anlog 100 UNIT/ML 10 ML VIAL 25 UNIT SUBCUT (20:43)
[2023-08-17 02:54] VITALS: BP 109/61; PULSE 78; RESP 14; TEMP 36.6; O2SAT 97
[2023-08-17 07:35] VITALS: BP 108/64; PULSE 70; RESP 16; TEMP 36.3; O2SAT 96
[2023-08-17 07:54] LABS: Glucose, Whole Blood 102 mg/dL (60-115)
[2023-08-17] MEDS: 0.9 % Sodium Chloride Flush 3 ML SYRINGE IVFLUSH ×3 (08:28→20:57)
[2023-08-17] MEDS: metFORMIN HCl 1,000 MG TABLET 1000 MG PO ×2 (08:29→16:55)
[2023-08-17] MEDS: Atorvastatin Calcium 40 MG TABLET PO (08:29)
[2023-08-17] MEDS: Finasteride 5 MG TABLET PO (08:29)
[2023-08-17] MEDS: Losartan Potassium 25 MG TABLET PO (08:29)
[2023-08-17] MEDS: Escitalopram Oxalate 10 MG TABLET PO (08:29)
[2023-08-17 11:28] LABS: Glucose, Whole Blood 211 mg/dL (60-115)
[2023-08-17] MEDS: Insulin Lispro 100 UNIT/ML 3 ML VIAL SUBCUT (11:38)
[2023-08-17] MEDS: Heparin Sodium,Porcine 5,000 UNIT/ML VIAL 5000 UNIT SUBCUT ×2 (11:46→23:40)
--- NOTE | 2023-08-17 13:43 | P.PNIM_ITS ---
Subjective Subjective Date of Service: 08/17/23 Interval History: No acute issues overnight. Remains pleasantly confused but cooperative Review of Systems Denies chest pain Denies shortness of breath Denies nausea vomiting diarrhea Denies fever chills Physical Exam 2 Vital Signs: Vital Signs: Last Vital Signs Temp 97.3 F 08/17/23 07:35 Pulse 70 08/17/23 07:35 Resp 16 08/17/23 07:35 BP 108/64 08/17/23 07:35 Pulse Ox 96 08/17/23 07:35 O2 Del Method Room Air 08/17/23 07:35 BMI result Body Mass Index 24.0 Const: Other: Awake alert confused no acute distress Resp: Other: Clear to auscultation bilaterally no rales rhonchi or wheezes Cardio: Other: No S4; positive S1-S2; no S3 murmurs rubs or gallops GI: Other: Soft nontender nondistended bowel sounds Extrem: Other: No edema bilaterally Objective Data Active Medications Acetaminophen (Acetaminophen 325 Mg Tablet) 650 mg PO Q6H PRN PRN Reason: Pain, Mild (Pain Scale 1-3) Last Admin: 08/13/23 16:34 Dose: 650 mg Documented By: GEOFFERY Atorvastatin Calcium (Atorvastatin Calcium 40 Mg Tablet) 40 mg PO DAILY [facility] Last Admin: 08/17/23 08:29 Dose: 40 mg Documented By: BRANDON Dextrose (Dextrose 50 % 25 Gm/50 Ml Syringe) 25 gm IVPUSH Q15M PRN; Protocol PRN Reason: per Hypoglycemia Standing Ord. Escitalopram Oxalate (Escitalopram Oxalate 10 Mg Tablet) 10 mg PO DAILY [facility] Last Admin: 08/17/23 08:29 Dose: 10 mg Documented By: BRANDON Finasteride (Finasteride 5 Mg Tablet) 5 mg PO DAILY [facility] Last Admin: 08/17/23 08:29 Dose: 5 mg Documented By: BRANDON Glucose (Glucose Gel 15 Gm Gel..Gram.) 15 gm PO Q15M PRN; Protocol PRN Reason: per Hypoglycemia Standing Ord. Heparin Sodium (Porcine) (Heparin Sodium,Porcine 5,000 Unit/Ml Vial) 5,000 unit SUBCUT Q12H [facility] Last Admin: 08/17/23 11:46 Dose: 5,000 unit Documented By: BRANDON Insulin Glargine (Insulin Glargine,Hum.Rec.Anlog 100 Unit/Ml 10 Ml Vial) 25 unit SUBCUT BEDTIME [facility] Last Admin: 08/16/23 20:43 Dose: 25 unit Documented By: LAUREN Insulin Human Lispro (Insulin Lispro 100 Unit/Ml 3 Ml Vial) 0 unit SUBCUT QIDACHS [facility]; Protocol Last Admin: 08/17/23 11:38 Dose: 4 unit Documented By: BRANDON Losartan Potassium (Losartan Potassium 25 Mg Tablet) 25 mg PO DAILY [facility]; Protocol Last Admin: 08/17/23 08:29 Dose: 25 mg Documented By: BRANDON Metformin HCl (Metformin Hcl 1,000 Mg Tablet) 1,000 mg PO BIDWM [facility] Last Admin: 08/17/23 08:29 Dose: 1,000 mg Documented By: BRANDON Ondansetron HCl (Ondansetron Hcl 4 Mg/2 Ml Vial) 4 mg IVPUSH Q8H PRN PRN Reason: Nausea and Vomiting Quetiapine Fumarate (Quetiapine Fumarate 50 Mg Tablet) 50 mg PO BEDTIME [facility] Last Admin: 08/16/23 20:42 Dose: 50 mg Documented By: LAUREN Sodium Chloride (0.9 % Sodium Chloride Flush 3 Ml Syringe) 3 ml IVFLUSH QSHIFT [facility] Last Admin: 08/17/23 08:28 Dose: 3 ml Documented By: BRANDON Labs 08/13/23 05:45 08/14/23 07:05 Labs: Laboratory Results - last 24 hr 08/16/23 08/16/23 08/17/23 16:42 20:26 07:41 POC Glucose 117 H 188 H 102 08/17/23 11:21 POC Glucose 211 H Assessment and Plan (1) Major neurocognitive disorder due to another medical condition: Status: Acute Plan 73-year-old man presented to the ER on 07/26/2023 initially with suicide ideation but then denied. Patient found to require guardianship, was found to have no competency. Court date for guardianship is pending inpatient will be admitted. 1. Major neurocognitive disorder due to another medical condition -History of dementia -await forthcoming data from guardian 2.Hypertension -acceptable control on current therapy -adjust as indicated 3.Diabetes mellitus type 2 -acceptable control on current therapies -lispro correctional scale -adjust as indicated Heparin Full code Patient admitted for guardianship court date August 15. No capacity per psychiatry Quality Stroke Does the patient have a stroke diagnosis?: No VTE Prior VTE?: No VTE Risk Level:: Medical - moderate - high VTE Device Contraindication: Treatment Not Tolerated VTE Drug Contraindication: N/A - Med Ordered
[2023-08-17 15:24] VITALS: BP 111/57; PULSE 81; RESP 16; TEMP 36.8; O2SAT 96
[2023-08-17 16:12] LABS: Glucose, Whole Blood 115 mg/dL (60-115)
[2023-08-17 18:58] VITALS: BP 110/58; PULSE 73; RESP 18; TEMP 36.6; O2SAT 97
[2023-08-17 20:16] LABS: Glucose, Whole Blood 135 mg/dL (60-115)
[2023-08-17] MEDS: Insulin Glargine,Hum.rec.anlog 100 UNIT/ML 10 ML VIAL 25 UNIT SUBCUT (20:56)
[2023-08-17] MEDS: QUEtiapine Fumarate 50 MG TABLET PO (20:56)
[2023-08-18 04:00] VITALS: BP 138/64; PULSE 93; RESP 16; TEMP 36.8; O2SAT 97
[2023-08-18 07:16] VITALS: BP 108/60; PULSE 85; RESP 18; TEMP 36.3; O2SAT 95
[2023-08-18 07:29] LABS: Glucose, Whole Blood 143 mg/dL (60-115)
[2023-08-18] MEDS: 0.9 % Sodium Chloride Flush 3 ML SYRINGE IVFLUSH ×3 (08:28→20:19)
[2023-08-18] MEDS: Finasteride 5 MG TABLET PO (08:36)
[2023-08-18] MEDS: Escitalopram Oxalate 10 MG TABLET PO (08:36)
[2023-08-18] MEDS: metFORMIN HCl 1,000 MG TABLET 1000 MG PO ×2 (08:36→16:56)
[2023-08-18] MEDS: Acetaminophen 325 MG TABLET 650 MG PO (08:36)
[2023-08-18] MEDS: Losartan Potassium 25 MG TABLET PO (08:37)
[2023-08-18] MEDS: Atorvastatin Calcium 40 MG TABLET PO (08:37)
[2023-08-18 11:22] LABS: Glucose, Whole Blood 235 mg/dL (60-115)
[2023-08-18] MEDS: Heparin Sodium,Porcine 5,000 UNIT/ML VIAL 5000 UNIT SUBCUT (12:08)
[2023-08-18] MEDS: Insulin Lispro 100 UNIT/ML 3 ML VIAL SUBCUT ×2 (12:08→20:18)
--- NOTE | 2023-08-18 12:15 | P.CDIM_ITS ---
PROVIDER RESPONSE TEXT: To clarify, the appropriate diagnosis supported by the clinical indicators: Clinically unable to determine (explain): unable to determine QUERY TEXT: PHYSICIAN'S DOCUMENTATION REQUEST Date of Query: 08/18/2023 11:57 AM EST Patient Name: Kana Todd Admit Date: 08/12/2023 Dear John Chung, A review of the medical record indicates additional documentation may be needed. Please review below and update the documentation accordingly. Clinical Indicators: PN: Plan - History of Dementia Plan for guardianship. No competency Schizophrenia He acts out/feels depressed and anxiety. Patient is alert, oriented but slightly agitated. Based on the above, could you clarify any specifics to the documented Dementia: Dementia Indicate type of dementia, such as Alzheimer's, senile, vascular, Lewy body, etc. Baseline dementia Indicate type, such as Alzheimer's, senile, vascular, Lewy body, etc., and any associated behavioral disturbances (aggressive, combative, or violent behavior) Other (explain) Clinically unable to determine (explain) Thank you, Jie Fountain, CCS, CDIS Use of terms such as suspected, likely, concern for, or probable (associated with a specific diagnosi s that is being evaluated, monitored, or treated as if it exists) are acceptable and can be coded in the inpatient se tting, when documented at the time of discharge. Please use your independent medical judgment in providing your response. THIS QUERY IS PART OF THE PERMANENT MEDICAL RECORD
--- NOTE | 2023-08-18 12:39 | P.PNIM_ITS ---
Subjective Subjective Date of Service: 08/18/23 Interval History: No acute issues overnight remains pleasantly confused Review of Systems Denies chest pain Denies shortness of breath Denies nausea vomiting diarrhea Denies fever chills Physical Exam 2 Vital Signs: Vital Signs: Last Vital Signs Temp 97.3 F 08/18/23 07:16 Pulse 85 08/18/23 07:16 Resp 18 08/18/23 07:16 BP 108/60 08/18/23 07:16 Pulse Ox 95 08/18/23 07:16 O2 Del Method Room Air 08/18/23 07:16 BMI result Body Mass Index 24.0 Const: Other: Awake alert confused no acute distress Resp: Other: Clear to auscultation bilaterally no rales rhonchi or wheezes Cardio: Other: No S4; positive S1-S2; no S3 murmurs rubs or gallops GI: Other: Soft nontender nondistended bowel sounds Extrem: Other: No edema bilaterally Objective Data Active Medications Acetaminophen (Acetaminophen 325 Mg Tablet) 650 mg PO Q6H PRN PRN Reason: Pain, Mild (Pain Scale 1-3) Last Admin: 08/18/23 08:36 Dose: 650 mg Documented By: YAMILET Atorvastatin Calcium (Atorvastatin Calcium 40 Mg Tablet) 40 mg PO DAILY [facility] Last Admin: 08/18/23 08:37 Dose: 40 mg Documented By: YAMILET Dextrose (Dextrose 50 % 25 Gm/50 Ml Syringe) 25 gm IVPUSH Q15M PRN; Protocol PRN Reason: per Hypoglycemia Standing Ord. Escitalopram Oxalate (Escitalopram Oxalate 10 Mg Tablet) 10 mg PO DAILY [facility] [place] Last Admin: 08/18/23 08:36 Dose: 10 mg Documented By: YAMILET Finasteride (Finasteride 5 Mg Tablet) 5 mg PO DAILY [facility] [place] Last Admin: 08/18/23 08:36 Dose: 5 mg Documented By: YAMLIET Glucose (Glucose Gel 15 Gm Gel..Gram.) 15 gm PO Q15M PRN; Protocol PRN Reason: per Hypoglycemia Standing Ord. Heparin Sodium (Porcine) (Heparin Sodium,Porcine 5,000 Unit/Ml Vial) 5,000 unit SUBCUT Q12H [facility] [place] Last Admin: 08/18/23 12:08 Dose: 5,000 unit Documented By: YAMILET Insulin Glargine (Insulin Glargine,Hum.Rec.Anlog 100 Unit/Ml 10 Ml Vial) 25 unit SUBCUT BEDTIME [facility] [place] Last Admin: 08/17/23 20:56 Dose: 25 unit Documented By: ALLYN Insulin Human Lispro (Insulin Lispro 100 Unit/Ml 3 Ml Vial) 0 unit SUBCUT QIDACHS [facility] [place]; Protocol Last Admin: 08/18/23 12:08 Dose: 4 unit Documented By: YAMILET Losartan Potassium (Losartan Potassium 25 Mg Tablet) 25 mg PO DAILY [facility] [place]; Protocol Last Admin: 08/18/23 08:37 Dose: 25 mg Documented By: YAMILET Metformin HCl (Metformin Hcl 1,000 Mg Tablet) 1,000 mg PO BIDWM [facility] [place] Last Admin: 08/18/23 08:36 Dose: 1,000 mg Documented By: YAMILET Ondansetron HCl (Ondansetron Hcl 4 Mg/2 Ml Vial) 4 mg IVPUSH Q8H PRN PRN Reason: Nausea and Vomiting Quetiapine Fumarate (Quetiapine Fumarate 50 Mg Tablet) 50 mg PO BEDTIME [facility] [place] Last Admin: 08/17/23 20:56 Dose: 50 mg Documented By: ALLYN Sodium Chloride (0.9 % Sodium Chloride Flush 3 Ml Syringe) 3 ml IVFLUSH QSHIFT [facility] [place] Last Admin: 08/18/23 08:28 Dose: 3 ml Documented By: YAMILET Labs 08/13/23 05:45 08/14/23 07:05 Labs: Laboratory Results - last 24 hr 08/17/23 08/17/23 08/18/23 16:03 19:56 07:18 POC Glucose 115 135 H 143 H 08/18/23 11:13 POC Glucose 235 H Assessment and Plan (1) Major neurocognitive disorder due to another medical condition: Status: Acute Plan 73-year-old man presented to the ER on 07/26/2023 initially with suicide ideation but then denied. Patient found to require guardianship, was found to have no competency. Court date for guardianship is pending inpatient will be admitted. 1. Major neurocognitive disorder due to another medical condition -History of dementia -await forthcoming data from guardian 2.Hypertension -acceptable control on current therapy -adjust as indicated 3.Diabetes mellitus type 2 -acceptable control on current therapies -lispro correctional scale -adjust as indicated Heparin Full code Patient admitted for guardianship court date August 15. No capacity per psychiatry Quality Stroke Does the patient have a stroke diagnosis?: No VTE Prior VTE?: No VTE Risk Level:: Medical - moderate - high VTE Device Contraindication: Treatment Not Tolerated VTE Drug Contraindication: N/A - Med Ordered
--- NOTE | 2023-08-18 14:54 | MHC.CM.PN ---
PT AWAITING GUARDIANSHIP AND LTC PLACEMENT REFERRALS WILL BE PLACED ON OBTAINED
[2023-08-18 15:10] VITALS: BP 122/62; PULSE 71; RESP 18; TEMP 36.6; O2SAT 96
[2023-08-18 16:22] LABS: Glucose, Whole Blood 142 mg/dL (60-115)
[2023-08-18 19:32] VITALS: BP 110/52; PULSE 74; RESP 16; TEMP 36.4; O2SAT 96
[2023-08-18 19:39] LABS: Glucose, Whole Blood 163 mg/dL (60-115)
[2023-08-18] MEDS: Insulin Glargine,Hum.rec.anlog 100 UNIT/ML 10 ML VIAL 25 UNIT SUBCUT (20:18)
[2023-08-18] MEDS: QUEtiapine Fumarate 50 MG TABLET PO (20:18)
[2023-08-19] MEDS: Heparin Sodium,Porcine 5,000 UNIT/ML VIAL 5000 UNIT SUBCUT ×2 (00:44→11:59)
[2023-08-19 03:21] VITALS: BP 102/56; PULSE 73; RESP 14; TEMP 36.7; O2SAT 95
[2023-08-19 07:04] VITALS: BP 114/64; PULSE 70; RESP 16; TEMP 36.2; O2SAT 96
[2023-08-19 07:24] LABS: Glucose, Whole Blood 116 mg/dL (60-115)
[2023-08-19] MEDS: Escitalopram Oxalate 10 MG TABLET PO (08:20)
[2023-08-19] MEDS: Losartan Potassium 25 MG TABLET PO (08:20)
[2023-08-19] MEDS: Finasteride 5 MG TABLET PO (08:20)
[2023-08-19] MEDS: Atorvastatin Calcium 40 MG TABLET PO (08:21)
[2023-08-19] MEDS: 0.9 % Sodium Chloride Flush 3 ML SYRINGE IVFLUSH ×3 (08:21→21:27)
[2023-08-19] MEDS: metFORMIN HCl 1,000 MG TABLET 1000 MG PO ×2 (08:21→17:15)
[2023-08-19 11:16] LABS: Glucose, Whole Blood 174 mg/dL (60-115)
--- NOTE | 2023-08-19 11:17 | P.PNIM_ITS ---
Subjective Subjective Date of Service: 08/19/23 Interval History: No acute issues overnight. Pleasantly confused Review of Systems Denies chest pain Denies shortness of breath Denies nausea vomiting diarrhea Denies fever chills Physical Exam 2 Vital Signs: Vital Signs: Last Vital Signs Temp 97.1 F 08/19/23 07:04 Pulse 70 08/19/23 07:04 Resp 16 08/19/23 07:04 BP 114/64 08/19/23 07:04 Pulse Ox 96 08/19/23 07:04 O2 Del Method Room Air 08/19/23 07:04 BMI result Body Mass Index 24.0 Const: Other: Awake alert confused no acute distress Resp: Other: Clear to auscultation bilaterally no rales rhonchi or wheezes Cardio: Other: No S4; positive S1-S2; no S3 murmurs rubs or gallops GI: Other: Soft nontender nondistended bowel sounds Extrem: Other: No edema bilaterally Objective Data Active Medications Acetaminophen (Acetaminophen 325 Mg Tablet) 650 mg PO Q6H PRN PRN Reason: Pain, Mild (Pain Scale 1-3) Last Admin: 08/18/23 08:36 Dose: 650 mg Documented By: YAMILET Atorvastatin Calcium (Atorvastatin Calcium 40 Mg Tablet) 40 mg PO DAILY [facility] Last Admin: 08/19/23 08:21 Dose: 40 mg Documented By: YAMILET Dextrose (Dextrose 50 % 25 Gm/50 Ml Syringe) 25 gm IVPUSH Q15M PRN; Protocol PRN Reason: per Hypoglycemia Standing Ord. Escitalopram Oxalate (Escitalopram Oxalate 10 Mg Tablet) 10 mg PO DAILY [facility] Last Admin: 08/19/23 08:20 Dose: 10 mg Documented By: YAMILET Finasteride (Finasteride 5 Mg Tablet) 5 mg PO DAILY [facility] Last Admin: 08/19/23 08:20 Dose: 5 mg Documented By: YAMILET Glucose (Glucose Gel 15 Gm Gel..Gram.) 15 gm PO Q15M PRN; Protocol PRN Reason: per Hypoglycemia Standing Ord. Heparin Sodium (Porcine) (Heparin Sodium,Porcine 5,000 Unit/Ml Vial) 5,000 unit SUBCUT Q12H [facility] Last Admin: 08/19/23 00:44 Dose: 5,000 unit Documented By: ALLYN Insulin Glargine (Insulin Glargine,Hum.Rec.Anlog 100 Unit/Ml 10 Ml Vial) 25 unit SUBCUT BEDTIME [facility] Last Admin: 08/18/23 20:18 Dose: 25 unit Documented By: ALLYN Insulin Human Lispro (Insulin Lispro 100 Unit/Ml 3 Ml Vial) 0 unit SUBCUT QIDACHS [facility]; Protocol Last Admin: 08/19/23 08:16 Dose: Not Given Documented By: YAMILET Non-Admin Reason: No Insulin Coverage Losartan Potassium (Losartan Potassium 25 Mg Tablet) 25 mg PO DAILY [facility]; Protocol Last Admin: 08/19/23 08:20 Dose: 25 mg Documented By: YAMILET Metformin HCl (Metformin Hcl 1,000 Mg Tablet) 1,000 mg PO BIDWM [facility] Last Admin: 08/19/23 08:21 Dose: 1,000 mg Documented By: YAMILET Ondansetron HCl (Ondansetron Hcl 4 Mg/2 Ml Vial) 4 mg IVPUSH Q8H PRN PRN Reason: Nausea and Vomiting Quetiapine Fumarate (Quetiapine Fumarate 50 Mg Tablet) 50 mg PO BEDTIME [facility] Last Admin: 08/18/23 20:18 Dose: 50 mg Documented By: ALLYN Sodium Chloride (0.9 % Sodium Chloride Flush 3 Ml Syringe) 3 ml IVFLUSH QSHIFT [facility] Last Admin: 08/19/23 08:21 Dose: 3 ml Documented By: YAMILET Labs 08/13/23 05:45 08/14/23 07:05 Labs: Laboratory Results - last 24 hr 08/18/23 08/18/23 08/18/23 11:13 16:16 19:33 POC Glucose 235 H 142 H 163 H 08/19/23 08/19/23 07:09 11:13 POC Glucose 116 H 174 H Assessment and Plan (1) Major neurocognitive disorder due to another medical condition: Status: Acute Plan 73-year-old man presented to the ER on 07/26/2023 initially with suicide ideation but then denied. Patient found to require guardianship, was found to have no competency. Court date for guardianship is pending inpatient will be admitted. 1. Major neurocognitive disorder due to another medical condition -History of dementia -await forthcoming data from guardian 2.Hypertension -acceptable control on current therapy -adjust as indicated 3.Diabetes mellitus type 2 -acceptable control on current therapies -lispro correctional scale -adjust as indicated Heparin Full code Patient admitted for guardianship court date August 15. No capacity per psychiatry Quality Stroke Does the patient have a stroke diagnosis?: No VTE Prior VTE?: No VTE Risk Level:: Medical - moderate - high VTE Device Contraindication: Treatment Not Tolerated VTE Drug Contraindication: N/A - Med Ordered
[2023-08-19] MEDS: Insulin Lispro 100 UNIT/ML 3 ML VIAL SUBCUT ×3 (11:59→21:26)
[2023-08-19 15:20] VITALS: BP 114/67; PULSE 70; RESP 18; TEMP 36.7; O2SAT 96
[2023-08-19 16:10] LABS: Glucose, Whole Blood 151 mg/dL (60-115)
[2023-08-19 19:22] VITALS: BP 99/51; PULSE 70; RESP 18; TEMP 36.6; O2SAT 97
[2023-08-19 20:39] LABS: Glucose, Whole Blood 162 mg/dL (60-115)
[2023-08-19] MEDS: QUEtiapine Fumarate 50 MG TABLET PO (21:26)
[2023-08-19] MEDS: Insulin Glargine,Hum.rec.anlog 100 UNIT/ML 10 ML VIAL 25 UNIT SUBCUT (21:26)
[2023-08-20] MEDS: Heparin Sodium,Porcine 5,000 UNIT/ML VIAL 5000 UNIT SUBCUT ×3 (01:03→23:47)
[2023-08-20 02:58] VITALS: BP 108/62; PULSE 75; RESP 18; TEMP 36.4; O2SAT 97
[2023-08-20 07:05] VITALS: BP 115/66; PULSE 78; RESP 16; TEMP 36.2; O2SAT 97
[2023-08-20 07:23] LABS: Glucose, Whole Blood 92 mg/dL (60-115)
[2023-08-20] MEDS: Atorvastatin Calcium 40 MG TABLET PO (09:17)
[2023-08-20] MEDS: 0.9 % Sodium Chloride Flush 3 ML SYRINGE IVFLUSH ×3 (09:17→20:18)
[2023-08-20] MEDS: metFORMIN HCl 1,000 MG TABLET 1000 MG PO ×2 (09:17→16:54)
[2023-08-20] MEDS: Finasteride 5 MG TABLET PO (09:17)
[2023-08-20] MEDS: Losartan Potassium 25 MG TABLET PO (09:17)
[2023-08-20] MEDS: Escitalopram Oxalate 10 MG TABLET PO (09:17)
[2023-08-20 11:08] LABS: Glucose, Whole Blood 276 mg/dL (60-115)
[2023-08-20] MEDS: Insulin Lispro 100 UNIT/ML 3 ML VIAL SUBCUT (11:30)
--- NOTE | 2023-08-20 14:34 | P.PNIM_ITS ---
Subjective Subjective Date of Service: 08/20/23 Interval History: No acute issues overnight. Pleasantly confused Review of Systems Denies chest pain Denies shortness of breath Denies nausea vomiting diarrhea Denies fever chills Physical Exam 2 Vital Signs: Vital Signs: Last Vital Signs Temp 97.1 F 08/20/23 07:05 Pulse 78 08/20/23 07:05 Resp 16 08/20/23 07:05 BP 115/66 08/20/23 07:05 Pulse Ox 97 08/20/23 07:05 O2 Del Method Room Air 08/20/23 07:05 BMI result Body Mass Index 24.0 Const: Other: Awake alert confused no acute distress Resp: Other: Clear to auscultation bilaterally no rales rhonchi or wheezes Cardio: Other: No S4; positive S1-S2; no S3 murmurs rubs or gallops GI: Other: Soft nontender nondistended bowel sounds Extrem: Other: No edema bilaterally Objective Data Active Medications Acetaminophen (Acetaminophen 325 Mg Tablet) 650 mg PO Q6H PRN PRN Reason: Pain, Mild (Pain Scale 1-3) Last Admin: 08/18/23 08:36 Dose: 650 mg Documented By: YAMILET Atorvastatin Calcium (Atorvastatin Calcium 40 Mg Tablet) 40 mg PO DAILY [facility] Last Admin: 08/20/23 09:17 Dose: 40 mg Documented By: RENAE Dextrose (Dextrose 50 % 25 Gm/50 Ml Syringe) 25 gm IVPUSH Q15M PRN; Protocol PRN Reason: per Hypoglycemia Standing Ord. Escitalopram Oxalate (Escitalopram Oxalate 10 Mg Tablet) 10 mg PO DAILY [facility] Last Admin: 08/20/23 09:17 Dose: 10 mg Documented By: RENAE Finasteride (Finasteride 5 Mg Tablet) 5 mg PO DAILY [facility] Last Admin: 08/20/23 09:17 Dose: 5 mg Documented By: RENAE Glucose (Glucose Gel 15 Gm Gel..Gram.) 15 gm PO Q15M PRN; Protocol PRN Reason: per Hypoglycemia Standing Ord. Heparin Sodium (Porcine) (Heparin Sodium,Porcine 5,000 Unit/Ml Vial) 5,000 unit SUBCUT Q12H [facility] Last Admin: 08/20/23 11:30 Dose: 5,000 unit Documented By: RENAE Insulin Glargine (Insulin Glargine,Hum.Rec.Anlog 100 Unit/Ml 10 Ml Vial) 25 unit SUBCUT BEDTIME [facility] Last Admin: 08/19/23 21:26 Dose: 25 unit Documented By: ENEDINA Insulin Human Lispro (Insulin Lispro 100 Unit/Ml 3 Ml Vial) 0 unit SUBCUT QIDACHS [facility]; Protocol Last Admin: 08/20/23 11:30 Dose: 6 unit Documented By: RENAE Losartan Potassium (Losartan Potassium 25 Mg Tablet) 25 mg PO DAILY [facility]; Protocol Last Admin: 08/20/23 09:17 Dose: 25 mg Documented By: RENAE Metformin HCl (Metformin Hcl 1,000 Mg Tablet) 1,000 mg PO BIDWM [facility] Last Admin: 08/20/23 09:17 Dose: 1,000 mg Documented By: RENAE Ondansetron HCl (Ondansetron Hcl 4 Mg/2 Ml Vial) 4 mg IVPUSH Q8H PRN PRN Reason: Nausea and Vomiting Quetiapine Fumarate (Quetiapine Fumarate 50 Mg Tablet) 50 mg PO BEDTIME [facility] Last Admin: 08/19/23 21:26 Dose: 50 mg Documented By: ENEDINA Sodium Chloride (0.9 % Sodium Chloride Flush 3 Ml Syringe) 3 ml IVFLUSH QSHIFT [facility] Last Admin: 08/20/23 09:17 Dose: 3 ml Documented By: RENAE Labs 08/13/23 05:45 08/14/23 07:05 Labs: Laboratory Results - last 24 hr 08/19/23 08/19/23 08/20/23 16:06 20:28 07:08 POC Glucose 151 H 162 H 92 08/20/23 11:04 POC Glucose 276 H Assessment and Plan (1) Major neurocognitive disorder due to another medical condition: Status: Acute Plan 73-year-old man presented to the ER on 07/26/2023 initially with suicide ideation but then denied. Patient found to require guardianship, was found to have no competency. Court date for guardianship is pending inpatient will be admitted. 1. Major neurocognitive disorder due to another medical condition -History of dementia -await forthcoming data from guardian 2.Hypertension -acceptable control on current therapy -adjust as indicated 3.Diabetes mellitus type 2 -acceptable control on current therapies -lispro correctional scale -adjust as indicated Heparin Full code Patient admitted for guardianship court date August 15. No capacity per psychiatry Quality Stroke Does the patient have a stroke diagnosis?: No VTE Prior VTE?: No VTE Risk Level:: Medical - moderate - high VTE Device Contraindication: Treatment Not Tolerated VTE Drug Contraindication: N/A - Med Ordered
[2023-08-20 15:25] VITALS: BP 101/60; PULSE 84; RESP 18; TEMP 36.4; O2SAT 95
[2023-08-20 16:22] LABS: Glucose, Whole Blood 138 mg/dL (60-115)
[2023-08-20 19:33] VITALS: BP 110/61; PULSE 84; RESP 18; TEMP 36.6; O2SAT 95
[2023-08-20 20:02] LABS: Glucose, Whole Blood 142 mg/dL (60-115)
[2023-08-20] MEDS: QUEtiapine Fumarate 50 MG TABLET PO (20:18)
[2023-08-20] MEDS: Insulin Glargine,Hum.rec.anlog 100 UNIT/ML 10 ML VIAL 25 UNIT SUBCUT (20:18)
[2023-08-21 03:32] VITALS: BP 110/65; PULSE 82; RESP 18; TEMP 36.4; O2SAT 96
[2023-08-21 06:31] LABS: Creatinine Clr Calc Pharmacy 88.6; Estimated Glomerular Filt Rate > 60
[2023-08-21 07:25] LABS: Glucose, Whole Blood 98 mg/dL (60-115)
[2023-08-21 07:56] VITALS: BP 117/69; PULSE 77; RESP 18; TEMP 36.2; O2SAT 96
[2023-08-21 08:28] LABS: Hematocrit 40.4 % (42.0-52.0); Hemoglobin 13.7 g/dl (14.0-18.0); Mean Corpuscular HGB Conc 33.9 g/dl (31.0-36.0); Mean Corpuscular Hemoglobin 29.7 pg (27.0-33.0); Mean Corpuscular Volume 87.6 fL (80.0-98.0); Mean Platelet Volume 10.2 fL (9.4-12.4); Platelet Count 228 X10*3/uL (160-400); Red Blood Count 4.61 X10*6/uL (4.60-5.80); Red Cell Distribution Width 13.3 % (11.0-16.0); White Blood Count 7.8 X10*3/uL (4.8-10.8)
[2023-08-21] MEDS: Finasteride 5 MG TABLET PO (08:31)
[2023-08-21] MEDS: Escitalopram Oxalate 10 MG TABLET PO (08:31)
[2023-08-21] MEDS: metFORMIN HCl 1,000 MG TABLET 1000 MG PO ×2 (08:31→16:50)
[2023-08-21] MEDS: 0.9 % Sodium Chloride Flush 3 ML SYRINGE IVFLUSH ×3 (08:31→21:28)
[2023-08-21] MEDS: Losartan Potassium 25 MG TABLET PO (08:31)
[2023-08-21] MEDS: Atorvastatin Calcium 40 MG TABLET PO (08:31)
[2023-08-21 11:20] LABS: Glucose, Whole Blood 206 mg/dL (60-115)
[2023-08-21] MEDS: Heparin Sodium,Porcine 5,000 UNIT/ML VIAL 5000 UNIT SUBCUT (11:50)
[2023-08-21] MEDS: Insulin Lispro 100 UNIT/ML 3 ML VIAL SUBCUT ×3 (11:50→21:27)
[2023-08-21 15:29] VITALS: BP 110/59; PULSE 72; RESP 18; TEMP 36.5; O2SAT 96
--- NOTE | 2023-08-21 15:46 | P.PNIM_ITS ---
Subjective Subjective Date of Service: 08/21/23 Interval History: seen and examined this morning awake, alert, no specific complaints Review of Systems Review of Systems: Yes all other systems are reviewed and are negative Constitutional Constitutional: Denies chills and Denies fever(s) Cardiovascular Cardiovascular: Denies chest pain, Denies palpitations and Denies dyspnea Respiratory Respiratory: Denies cough and Denies dyspnea Gastrointestinal Gastrointestinal: Denies abdominal pain, Denies nausea and Denies vomiting Endocrine Endocrine: Denies palpitations Physical Exam 2 Vital Signs: Vital Signs: Last Vital Signs Temp 97.7 F 08/21/23 15:29 Pulse 72 08/21/23 15:29 Resp 18 08/21/23 15:29 BP 110/59 L 08/21/23 15:29 Pulse Ox 96 08/21/23 15:29 O2 Del Method Room Air 08/21/23 15:29 BMI result Body Mass Index 24.0 Const: General: cooperative, comfortable, no acute distress, alert and awake Nutritional Appearance: average body habitus Resp: Effort & Inspection: normal respiratory effort and able to speak in complete sentences Cardio: Rate: regular rate GI: Palpation (GI): Soft to palpation and nontender Extrem: Other: 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 Escitalopram Oxalate (Escitalopram Oxalate 10 Mg Tablet) 10 mg PO DAILY [facility] Last Admin: 08/21/23 08:31 Dose: 10 mg Documented By: JANNA Finasteride (Finasteride 5 Mg Tablet) 5 mg PO DAILY [facility] Last Admin: 08/21/23 08:31 Dose: 5 mg Documented By: JANNA Glucose (Glucose Gel 15 Gm Gel..Gram.) 15 gm PO Q15M PRN; Protocol PRN Reason: per Hypoglycemia Standing Ord. Heparin Sodium (Porcine) (Heparin Sodium,Porcine 5,000 Unit/Ml Vial) 5,000 unit SUBCUT Q12H [facility] Last Admin: 08/21/23 11:50 Dose: 5,000 unit Documented By: JANNA Insulin Glargine (Insulin Glargine,Hum.Rec.Anlog 100 Unit/Ml 10 Ml Vial) 25 unit SUBCUT BEDTIME [facility] Last Admin: 08/20/23 20:18 Dose: 25 unit Documented By: LAUREN Insulin Human Lispro (Insulin Lispro 100 Unit/Ml 3 Ml Vial) 0 unit SUBCUT QIDACHS [facility]; Protocol Last Admin: 08/21/23 11:50 Dose: 4 unit Documented By: JANNA Losartan Potassium (Losartan Potassium 25 Mg Tablet) 25 mg PO DAILY [facility]; Protocol Last Admin: 08/21/23 08:31 Dose: 25 mg Documented By: JANNA Metformin HCl (Metformin Hcl 1,000 Mg Tablet) 1,000 mg PO BIDWM [facility] Last Admin: 08/21/23 08:31 Dose: 1,000 mg Documented By: JANNA Ondansetron HCl (Ondansetron Hcl 4 Mg/2 Ml Vial) 4 mg IVPUSH Q8H PRN PRN Reason: Nausea and Vomiting Quetiapine Fumarate (Quetiapine Fumarate 50 Mg Tablet) 50 mg PO BEDTIME [facility] Last Admin: 08/20/23 20:18 Dose: 50 mg Documented By: LAUREN Sodium Chloride (0.9 % Sodium Chloride Flush 3 Ml Syringe) 3 ml IVFLUSH QSHIFT [facility] Last Admin: 08/21/23 15:44 Dose: 3 ml Documented By: ALIZAIC Labs 08/21/23 05:47 08/21/23 05:47 Labs: Laboratory Results - last 24 hr 08/20/23 08/20/23 08/21/23 16:17 19:59 05:47 MCV 87.6 MCH 29.7 MCHC 33.9 RDW 13.3 Plt Count 228 MPV 10.2 Absolute Nucleated RBC 0.000 Nucleated RBC % (auto) 0.0 Hold Purple Top SEE NOTE Estim Creat Clear Calc 88.6 Estimated GFR > 60 POC Glucose 138 H 142 H 08/21/23 08/21/23 07:22 11:17 MCV MCH MCHC RDW Plt Count MPV Absolute Nucleated RBC Nucleated RBC % (auto) Hold Purple Top Estim Creat Clear Calc Estimated GFR POC Glucose 98 206 H Assessment and Plan (1) Major neurocognitive disorder due to another medical condition: Status: Acute Plan 73-year-old man presented to the ER on 07/26/2023 initially with suicide ideation but then denied. Patient found to require guardianship, was found to have no competency. Court date for guardianship is pending inpatient will be admitted. Major neurocognitive disorder due to another medical condition -History of dementia -await forthcoming data from guardian Hypertension -acceptable control on current therapy -adjust as indicated Diabetes mellitus type 2 continue metformin, lantus, SSI -acceptable control on current therapies -lispro correctional scale -adjust as indicated BPH Continue finasteride mood Continue Lexapro, Seroquel DVT ppx - Heparin Full code Patient admitted for guardianship court date August 15. No capacity per psychiatry Quality Stroke Does the patient have a stroke diagnosis?: No VTE Prior VTE?: No VTE Risk Level:: Medical - moderate - high VTE Device Contraindication: Treatment Not Tolerated VTE Drug Contraindication: N/A - Med Ordered
[2023-08-21 16:06] LABS: Glucose, Whole Blood 154 mg/dL (60-115)
[2023-08-21 19:14] VITALS: BP 105/56; PULSE 77; RESP 18; TEMP 36.4; O2SAT 97
[2023-08-21 20:08] LABS: Glucose, Whole Blood 224 mg/dL (60-115)
[2023-08-21] MEDS: Insulin Glargine,Hum.rec.anlog 100 UNIT/ML 10 ML VIAL 25 UNIT SUBCUT (21:27)
[2023-08-21] MEDS: QUEtiapine Fumarate 50 MG TABLET PO (21:28)
[2023-08-22] MEDS: Heparin Sodium,Porcine 5,000 UNIT/ML VIAL 5000 UNIT SUBCUT ×2 (01:30→12:18)
[2023-08-22 04:00] VITALS: BP 122/70; PULSE 83; RESP 16; TEMP 36.2; O2SAT 96
[2023-08-22 07:24] VITALS: BP 111/64; PULSE 69; RESP 18; TEMP 36.1; O2SAT 96
[2023-08-22 07:36] LABS: Glucose, Whole Blood 95 mg/dL (60-115)
[2023-08-22] MEDS: Losartan Potassium 25 MG TABLET PO (08:44)
[2023-08-22] MEDS: Escitalopram Oxalate 10 MG TABLET PO (08:44)
[2023-08-22] MEDS: Atorvastatin Calcium 40 MG TABLET PO (08:44)
[2023-08-22] MEDS: 0.9 % Sodium Chloride Flush 3 ML SYRINGE IVFLUSH ×3 (08:44→21:19)
[2023-08-22] MEDS: metFORMIN HCl 1,000 MG TABLET 1000 MG PO ×2 (08:44→17:29)
[2023-08-22] MEDS: Finasteride 5 MG TABLET PO (08:44)
[2023-08-22 11:41] LABS: Glucose, Whole Blood 203 mg/dL (60-115)
[2023-08-22] MEDS: Insulin Lispro 100 UNIT/ML 3 ML VIAL SUBCUT (12:18)
--- NOTE | 2023-08-22 15:43 | P.PNIM_ITS ---
Subjective Subjective Date of Service: 08/22/23 Interval History: seen and examined this morning follow up for placement no overnight events no specific complaints Review of Systems Review of Systems: Yes all other systems are reviewed and are negative Constitutional Constitutional: Denies chills and Denies fever(s) Cardiovascular Cardiovascular: Denies chest pain and Denies palpitations Gastrointestinal Gastrointestinal: Denies abdominal pain Endocrine Endocrine: Denies palpitations Physical Exam 2 Vital Signs: Vital Signs: Last Vital Signs Temp 96.9 F 08/22/23 07:24 Pulse 69 08/22/23 07:24 Resp 18 08/22/23 07:24 BP 111/64 08/22/23 07:24 Pulse Ox 96 08/22/23 07:24 O2 Del Method Room Air 08/22/23 07:24 BMI result Body Mass Index 24.0 Const: General: cooperative, comfortable, no acute distress, alert and awake Nutritional Appearance: average body habitus Resp: Effort & Inspection: normal respiratory effort and able to speak in complete sentences Cardio: Rate: regular rate GI: Palpation (GI): Soft to palpation and nontender Extrem: Other: 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 Escitalopram Oxalate (Escitalopram Oxalate 10 Mg Tablet) 10 mg PO DAILY [facility] Last Admin: 08/22/23 08:44 Dose: 10 mg Documented By: BENITA Finasteride (Finasteride 5 Mg Tablet) 5 mg PO DAILY [facility] Last Admin: 08/22/23 08:44 Dose: 5 mg Documented By: BENITA Glucose (Glucose Gel 15 Gm Gel..Gram.) 15 gm PO Q15M PRN; Protocol PRN Reason: per Hypoglycemia Standing Ord. Heparin Sodium (Porcine) (Heparin Sodium,Porcine 5,000 Unit/Ml Vial) 5,000 unit SUBCUT Q12H [facility] Last Admin: 08/22/23 12:18 Dose: 5,000 unit Documented By: BENITA Insulin Glargine (Insulin Glargine,Hum.Rec.Anlog 100 Unit/Ml 10 Ml Vial) 25 unit SUBCUT BEDTIME [facility] Last Admin: 08/21/23 21:27 Dose: 25 unit Documented By: ENEDINA Insulin Human Lispro (Insulin Lispro 100 Unit/Ml 3 Ml Vial) 0 unit SUBCUT QIDACHS [facility] [place]; Protocol Last Admin: 08/22/23 12:18 Dose: 4 unit Documented By: BENITA Losartan Potassium (Losartan Potassium 25 Mg Tablet) 25 mg PO DAILY [facility]; Protocol Last Admin: 08/22/23 08:44 Dose: 25 mg Documented By: BENITA Metformin HCl (Metformin Hcl 1,000 Mg Tablet) 1,000 mg PO BIDWM [facility] Last Admin: 08/22/23 08:44 Dose: 1,000 mg Documented By: BENITA Ondansetron HCl (Ondansetron Hcl 4 Mg/2 Ml Vial) 4 mg IVPUSH Q8H PRN PRN Reason: Nausea and Vomiting Quetiapine Fumarate (Quetiapine Fumarate 50 Mg Tablet) 50 mg PO BEDTIME [facility] Last Admin: 08/21/23 21:28 Dose: 50 mg Documented By: ENEDINA Sodium Chloride (0.9 % Sodium Chloride Flush 3 Ml Syringe) 3 ml IVFLUSH QSHIFT [facility] Last Admin: 08/22/23 15:38 Dose: 3 ml Documented By: BENITA Labs 08/21/23 05:47 08/21/23 05:47 Labs: Laboratory Results - last 24 hr 08/21/23 08/21/23 08/22/23 15:58 20:04 07:24 POC Glucose 154 H 224 H 95 08/22/23 11:24 POC Glucose 203 H Assessment and Plan (1) Major neurocognitive disorder due to another medical condition: Status: Acute Plan 73-year-old man presented to the ER on 07/26/2023 initially with suicide ideation but then denied. Patient found to require guardianship, was found to have no competency. Court date for guardianship is pending inpatient will be admitted. Major neurocognitive disorder due to another medical condition -History of dementia Hypertension continue losartan Diabetes mellitus type 2 continue metformin, lantus, SSI BPH Continue finasteride mood Continue Lexapro, Seroquel DVT ppx - Heparin Full code Patient admitted for guardianship court date August 15. No capacity per psychiatry Quality Stroke Does the patient have a stroke diagnosis?: No VTE Prior VTE?: No VTE Risk Level:: Medical - moderate - high VTE Device Contraindication: Treatment Not Tolerated VTE Drug Contraindication: N/A - Med Ordered
[2023-08-22 15:44] VITALS: BP 104/53; PULSE 75; RESP 18; TEMP 36.4; O2SAT 99
[2023-08-22 16:24] LABS: Glucose, Whole Blood 93 mg/dL (60-115)
[2023-08-22 20:00] VITALS: BP 108/57; PULSE 74; RESP 18; TEMP 36.6; O2SAT 97
[2023-08-22 20:40] LABS: Glucose, Whole Blood 106 mg/dL (60-115)
[2023-08-22] MEDS: QUEtiapine Fumarate 50 MG TABLET PO (21:18)
[2023-08-22] MEDS: Insulin Glargine,Hum.rec.anlog 100 UNIT/ML 10 ML VIAL 25 UNIT SUBCUT (21:18)
[2023-08-23] MEDS: Heparin Sodium,Porcine 5,000 UNIT/ML VIAL 5000 UNIT SUBCUT ×3 (00:19→23:30)
[2023-08-23 03:39] VITALS: BP 118/65; PULSE 70; RESP 18; TEMP 37.1; O2SAT 97
[2023-08-23 06:56] VITALS: BP 119/61; PULSE 73; RESP 16; TEMP 35.5; O2SAT 97
[2023-08-23 06:58] LABS: Anion Gap 16 (12-20); Blood Urea Nitrogen 15 mg/dL (9-16); Calcium 9.4 mg/dL (8.4-10.2); Carbon Dioxide 24 mmol/L (22-29); Chloride 102 mmol/L (96-108); Creatinine Clr Calc Pharmacy 85.4; Estimated Glomerular Filt Rate > 60; Glucose Random 104 mg/dL (60-115); Potassium 3.9 mmol/L (3.3-5.1); Sodium 138 mmol/L (135-145)
[2023-08-23 07:07] LABS: Glucose, Whole Blood 116 mg/dL (60-115)
[2023-08-23] MEDS: Escitalopram Oxalate 10 MG TABLET PO (07:53)
[2023-08-23] MEDS: Finasteride 5 MG TABLET PO (07:53)
[2023-08-23] MEDS: 0.9 % Sodium Chloride Flush 3 ML SYRINGE IVFLUSH ×3 (07:53→19:58)
[2023-08-23] MEDS: Losartan Potassium 25 MG TABLET PO (07:53)
[2023-08-23] MEDS: Atorvastatin Calcium 40 MG TABLET PO (07:53)
[2023-08-23] MEDS: metFORMIN HCl 1,000 MG TABLET 1000 MG PO ×2 (07:53→16:47)
[2023-08-23 11:09] LABS: Glucose, Whole Blood 184 mg/dL (60-115)
[2023-08-23] MEDS: Insulin Lispro 100 UNIT/ML 3 ML VIAL SUBCUT ×3 (11:34→19:57)
--- NOTE | 2023-08-23 11:44 | HO.PM.IMPN ---
Subjective Subjective Date of Service: 08/23/23 Interval History: seen and examined this morning follow up for dementia no overnight events sitting up in bed, no specific complaints Review of Systems Denies chest pain Denies shortness of breath Denies nausea vomiting diarrhea Denies fever chills Review of Systems: Yes all other systems are reviewed and are negative Constitutional Constitutional: Denies chills and Denies fever(s) Cardiovascular Cardiovascular: Denies chest pain, Denies palpitations and Denies dyspnea Respiratory Respiratory: Denies cough and Denies dyspnea Gastrointestinal Gastrointestinal: Denies abdominal pain, Denies nausea and Denies vomiting Endocrine Endocrine: Denies palpitations Physical Exam Vital Signs: Vital Signs: Last Vital Signs Temp 96 F L 08/23/23 06:56 Pulse 73 08/23/23 06:56 Resp 16 08/23/23 06:56 BP 119/61 08/23/23 06:56 Pulse Ox 97 08/23/23 06:56 O2 Del Method Room Air 08/23/23 06:56 BMI result Body Mass Index 24.0 Const: General: cooperative, comfortable, no acute distress, alert and awake Nutritional Appearance: average body habitus Resp: Effort & Inspection: normal respiratory effort and able to speak in complete sentences Cardio: Rate: regular rate GI: Palpation (GI): Soft to palpation and nontender Extrem: Other: 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 Escitalopram Oxalate (Escitalopram Oxalate 10 Mg Tablet) 10 mg PO DAILY [facility] Last Admin: 08/23/23 07:53 Dose: 10 mg Documented By: SYEDA Finasteride (Finasteride 5 Mg Tablet) 5 mg PO DAILY [facility] Last Admin: 08/23/23 07:53 Dose: 5 mg Documented By: SYEDA Glucose (Glucose Gel 15 Gm Gel..Gram.) 15 gm PO Q15M PRN; Protocol PRN Reason: per Hypoglycemia Standing Ord. Heparin Sodium (Porcine) (Heparin Sodium,Porcine 5,000 Unit/Ml Vial) 5,000 unit SUBCUT Q12H [facility] Last Admin: 08/23/23 11:35 Dose: 5,000 unit Documented By: SYEDA Insulin Glargine (Insulin Glargine,Hum.Rec.Anlog 100 Unit/Ml 10 Ml Vial) 25 unit SUBCUT BEDTIME [facility] Last Admin: 08/22/23 21:18 Dose: 25 unit Documented By: ENEDINA Insulin Human Lispro (Insulin Lispro 100 Unit/Ml 3 Ml Vial) 0 unit SUBCUT QIDACHS [facility]; Protocol Last Admin: 08/23/23 11:34 Dose: 2 unit Documented By: SYEDA Losartan Potassium (Losartan Potassium 25 Mg Tablet) 25 mg PO DAILY [facility]; Protocol Last Admin: 08/23/23 07:53 Dose: 25 mg Documented By: SYEDA Metformin HCl (Metformin Hcl 1,000 Mg Tablet) 1,000 mg PO BIDWM [facility] Last Admin: 08/23/23 07:53 Dose: 1,000 mg Documented By: SYEDA Ondansetron HCl (Ondansetron Hcl 4 Mg/2 Ml Vial) 4 mg IVPUSH Q8H PRN PRN Reason: Nausea and Vomiting Quetiapine Fumarate (Quetiapine Fumarate 50 Mg Tablet) 50 mg PO BEDTIME [facility] Last Admin: 08/22/23 21:18 Dose: 50 mg Documented By: ENEDINA Sodium Chloride (0.9 % Sodium Chloride Flush 3 Ml Syringe) 3 ml IVFLUSH QSHIFT [facility] Last Admin: 08/23/23 07:53 Dose: 3 ml Documented By: SYEDA Labs 08/21/23 05:47 08/23/23 05:44 Labs: Laboratory Results - last 24 hr 08/22/23 08/22/23 08/23/23 16:20 20:37 05:44 Anion Gap 16 Estim Creat Clear Calc 85.4 Estimated GFR > 60 POC Glucose 93 106 Random Glucose 104 Calcium 9.4 08/23/23 08/23/23 07:04 11:06 Anion Gap Estim Creat Clear Calc Estimated GFR POC Glucose 116 H 184 H Random Glucose Calcium Assessment and Plan (1) Major neurocognitive disorder due to another medical condition: Status: Acute Plan 73-year-old man presented to the ER on 07/26/2023 initially with suicide ideation but then denied. Patient found to require guardianship, was found to have no competency. Court date for guardianship is pending inpatient will be admitted. Major neurocognitive disorder due to another medical condition History of dementia Hypertension continue losartan Diabetes mellitus type 2 continue metformin, lantus, SSI BPH Continue finasteride mood Continue Lexapro, Seroquel DVT ppx - Heparin Full code Patient admitted for guardianship court date August 15. No capacity per psychiatry Quality Stroke Does the patient have a stroke diagnosis?: No VTE Prior VTE?: No VTE Risk Level:: Medical - moderate - high VTE Device Contraindication: Treatment Not Tolerated VTE Drug Contraindication: N/A - Med Ordered
[2023-08-23 15:21] VITALS: BP 113/56; PULSE 76; RESP 18; TEMP 36.4; O2SAT 96
[2023-08-23 15:58] LABS: Glucose, Whole Blood 158 mg/dL (60-115)
[2023-08-23 18:59] VITALS: BP 115/56; PULSE 74; RESP 17; TEMP 36.7; O2SAT 99
[2023-08-23 19:44] LABS: Glucose, Whole Blood 192 mg/dL (60-115)
[2023-08-23] MEDS: QUEtiapine Fumarate 50 MG TABLET PO (19:57)
[2023-08-23] MEDS: Insulin Glargine,Hum.rec.anlog 100 UNIT/ML 10 ML VIAL 25 UNIT SUBCUT (19:57)
--- NOTE | 2023-08-23 20:07 | PC.NURSE ---
pt's IV is outdated, IV removed. Dr. Acuna OK's leaving IV out for now. Pt is here for placement and does not have any scheduled IV meds.
[2023-08-24 03:49] VITALS: BP 123/56; PULSE 70; RESP 14; TEMP 36.2; O2SAT 96
[2023-08-24 07:19] VITALS: BP 117/57; PULSE 77; RESP 16; TEMP 36.3; O2SAT 97
[2023-08-24 07:29] LABS: Glucose, Whole Blood 95 mg/dL (60-115)
[2023-08-24] MEDS: metFORMIN HCl 1,000 MG TABLET 1000 MG PO ×2 (08:03→16:44)
[2023-08-24] MEDS: Escitalopram Oxalate 10 MG TABLET PO (08:03)
[2023-08-24] MEDS: Losartan Potassium 25 MG TABLET PO (08:03)
[2023-08-24] MEDS: Finasteride 5 MG TABLET PO (08:03)
[2023-08-24] MEDS: Atorvastatin Calcium 40 MG TABLET PO (08:03)
[2023-08-24 11:18] LABS: Glucose, Whole Blood 111 mg/dL (60-115)
[2023-08-24] MEDS: Heparin Sodium,Porcine 5,000 UNIT/ML VIAL 5000 UNIT SUBCUT (11:30)
--- NOTE | 2023-08-24 14:05 | HO.PM.IMPN ---
Subjective Subjective Date of Service: 08/24/23 Interval History: seen and examined this morning follow up for placement no overnight events feeling well Review of Systems Review of Systems: Yes all other systems are reviewed and are negative Constitutional Constitutional: Denies chills and Denies fever(s) Cardiovascular Cardiovascular: Denies chest pain Physical Exam Vital Signs: Vital Signs: Last Vital Signs Temp 97.4 F 08/24/23 07:19 Pulse 77 08/24/23 07:19 Resp 16 08/24/23 07:19 BP 117/57 L 08/24/23 07:19 Pulse Ox 97 08/24/23 07:19 O2 Del Method Room Air 08/24/23 07:19 BMI result Body Mass Index 24.0 Const: Other: pleasantly confused General: cooperative, comfortable, no acute distress, alert and awake Nutritional Appearance: average body habitus Resp: Effort & Inspection: normal respiratory effort and able to speak in complete sentences Cardio: Rate: regular rate GI: Palpation (GI): Soft to palpation and nontender Extrem: Other: 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 Escitalopram Oxalate (Escitalopram Oxalate 10 Mg Tablet) 10 mg PO DAILY [facility] Last Admin: 08/24/23 08:03 Dose: 10 mg Documented By: NATHAN Finasteride (Finasteride 5 Mg Tablet) 5 mg PO DAILY [facility] Last Admin: 08/24/23 08:03 Dose: 5 mg Documented By: NATHAN Glucose (Glucose Gel 15 Gm Gel..Gram.) 15 gm PO Q15M PRN; Protocol PRN Reason: per Hypoglycemia Standing Ord. Heparin Sodium (Porcine) (Heparin Sodium,Porcine 5,000 Unit/Ml Vial) 5,000 unit SUBCUT Q12H [facility] Last Admin: 08/24/23 11:30 Dose: 5,000 unit Documented By: NATHAN Insulin Glargine (Insulin Glargine,Hum.Rec.Anlog 100 Unit/Ml 10 Ml Vial) 25 unit SUBCUT BEDTIME [facility] Last Admin: 08/23/23 19:57 Dose: 25 unit Documented By: PRASANNA Insulin Human Lispro (Insulin Lispro 100 Unit/Ml 3 Ml Vial) 0 unit SUBCUT QIDACHS [facility]; Protocol Last Admin: 08/24/23 11:23 Dose: Not Given Documented By: NATHAN Non-Admin Reason: No Insulin Coverage Losartan Potassium (Losartan Potassium 25 Mg Tablet) 25 mg PO DAILY [facility]; Protocol Last Admin: 08/24/23 08:03 Dose: 25 mg Documented By: NATHAN Metformin HCl (Metformin Hcl 1,000 Mg Tablet) 1,000 mg PO BIDWM [facility] Last Admin: 08/24/23 08:03 Dose: 1,000 mg Documented By: NATHAN Ondansetron HCl (Ondansetron Hcl 4 Mg/2 Ml Vial) 4 mg IVPUSH Q8H PRN PRN Reason: Nausea and Vomiting Quetiapine Fumarate (Quetiapine Fumarate 50 Mg Tablet) 50 mg PO BEDTIME [facility] Last Admin: 08/23/23 19:57 Dose: 50 mg Documented By: PRASANNA Sodium Chloride (0.9 % Sodium Chloride Flush 3 Ml Syringe) 3 ml IVFLUSH QSHIFT [facility] Last Admin: 08/24/23 08:03 Dose: Not Given Documented By: NATHAN Non-Admin Reason: No Access Labs 08/21/23 05:47 08/23/23 05:44 Labs: Laboratory Results - last 24 hr 08/23/23 08/23/23 08/24/23 15:54 19:40 07:17 POC Glucose 158 H 192 H 95 08/24/23 11:09 POC Glucose 111 Assessment and Plan (1) Major neurocognitive disorder due to another medical condition: Status: Acute Plan 73-year-old man presented to the ER on 07/26/2023 initially with suicide ideation but then denied. Patient found to require guardianship, was found to have no competency. Court date for guardianship is pending inpatient will be admitted. Major neurocognitive disorder due to another medical condition History of dementia Hypertension continue losartan Diabetes mellitus type 2 continue metformin, lantus, SSI BPH Continue finasteride mood Continue Lexapro, Seroquel DVT ppx - Heparin Full code Patient awaiting guardianship and LTC placement. No capacity per psychiatry Quality Stroke Does the patient have a stroke diagnosis?: No VTE Prior VTE?: No VTE Risk Level:: Medical - moderate - high VTE Device Contraindication: Treatment Not Tolerated VTE Drug Contraindication: N/A - Med Ordered
[2023-08-24 15:17] VITALS: BP 111/65; PULSE 84; RESP 18; TEMP 36.5; O2SAT 93
[2023-08-24 16:09] LABS: Glucose, Whole Blood 168 mg/dL (60-115)
[2023-08-24] MEDS: 0.9 % Sodium Chloride Flush 3 ML SYRINGE IVFLUSH (16:44)
[2023-08-24 19:40] VITALS: BP 120/64; PULSE 82; RESP 14; TEMP 36.8; O2SAT 97
[2023-08-24 20:12] LABS: Glucose, Whole Blood 133 mg/dL (60-115)
[2023-08-24] MEDS: Insulin Glargine,Hum.rec.anlog 100 UNIT/ML 10 ML VIAL 25 UNIT SUBCUT (20:57)
[2023-08-24] MEDS: QUEtiapine Fumarate 50 MG TABLET PO (20:57)
[2023-08-25] MEDS: Heparin Sodium,Porcine 5,000 UNIT/ML VIAL 5000 UNIT SUBCUT ×3 (00:54→23:41)
[2023-08-25 03:27] VITALS: BP 105/61; PULSE 75; RESP 16; TEMP 36.1; O2SAT 98
[2023-08-25 07:49] VITALS: BP 115/66; PULSE 68; RESP 18; TEMP 36.1; O2SAT 95
[2023-08-25 07:51] LABS: Glucose, Whole Blood 122 mg/dL (60-115)
[2023-08-25] MEDS: Losartan Potassium 25 MG TABLET PO (08:48)
[2023-08-25] MEDS: Finasteride 5 MG TABLET PO (08:48)
[2023-08-25] MEDS: Atorvastatin Calcium 40 MG TABLET PO (08:48)
[2023-08-25] MEDS: Escitalopram Oxalate 10 MG TABLET PO (08:48)
[2023-08-25] MEDS: 0.9 % Sodium Chloride Flush 3 ML SYRINGE IVFLUSH (08:48)
[2023-08-25] MEDS: metFORMIN HCl 1,000 MG TABLET 1000 MG PO ×2 (08:48→16:13)
--- NOTE | 2023-08-25 09:58 | HO.PM.IMPN ---
Subjective Subjective Date of Service: 08/25/23 Interval History: seen and examined this morning follow up for placement no overnight events feeling well Review of Systems Review of Systems: Yes all other systems are reviewed and are negative Constitutional Constitutional: Denies chills and Denies fever(s) Cardiovascular Cardiovascular: Denies chest pain Physical Exam Vital Signs: Vital Signs: Last Vital Signs Temp 97 F 08/25/23 07:49 Pulse 68 08/25/23 07:49 Resp 18 08/25/23 07:49 BP 115/66 08/25/23 07:49 Pulse Ox 95 08/25/23 07:49 O2 Del Method Room Air 08/25/23 07:49 BMI result Body Mass Index 24.0 alert and confused soft abd LSCTA Objective Data Active Medications Acetaminophen (Acetaminophen 325 Mg Tablet) 650 mg PO Q6H PRN PRN Reason: Pain, Mild (Pain Scale 1-3) Last Admin: 08/18/23 08:36 Dose: 650 mg Documented By: YAMILET Atorvastatin Calcium (Atorvastatin Calcium 40 Mg Tablet) 40 mg PO DAILY [facility] Last Admin: 08/25/23 08:48 Dose: 40 mg Documented By: BRANDON Dextrose (Dextrose 50 % 25 Gm/50 Ml Syringe) 25 gm IVPUSH Q15M PRN; Protocol PRN Reason: per Hypoglycemia Standing Ord. Escitalopram Oxalate (Escitalopram Oxalate 10 Mg Tablet) 10 mg PO DAILY [facility] Last Admin: 08/25/23 08:48 Dose: 10 mg Documented By: BRANDON Finasteride (Finasteride 5 Mg Tablet) 5 mg PO DAILY [facility] Last Admin: 08/25/23 08:48 Dose: 5 mg Documented By: BRANDON Glucose (Glucose Gel 15 Gm Gel..Gram.) 15 gm PO Q15M PRN; Protocol PRN Reason: per Hypoglycemia Standing Ord. Heparin Sodium (Porcine) (Heparin Sodium,Porcine 5,000 Unit/Ml Vial) 5,000 unit SUBCUT Q12H [facility] Last Admin: 08/25/23 00:54 Dose: 5,000 unit Documented By: LIGIA Insulin Glargine (Insulin Glargine,Hum.Rec.Anlog 100 Unit/Ml 10 Ml Vial) 25 unit SUBCUT BEDTIME [facility] Last Admin: 08/24/23 20:57 Dose: 25 unit Documented By: HO.CHOIP Insulin Human Lispro (Insulin Lispro 100 Unit/Ml 3 Ml Vial) 0 unit SUBCUT QIDACHS [facility]; Protocol Last Admin: 08/25/23 08:00 Dose: Not Given Documented By: BRANDON Non-Admin Reason: No Insulin Coverage Losartan Potassium (Losartan Potassium 25 Mg Tablet) 25 mg PO DAILY [facility]; Protocol Last Admin: 08/25/23 08:48 Dose: 25 mg Documented By: BRANDON Metformin HCl (Metformin Hcl 1,000 Mg Tablet) 1,000 mg PO BIDWM [facility] Last Admin: 08/25/23 08:48 Dose: 1,000 mg Documented By: BRANDON Ondansetron HCl (Ondansetron Hcl 4 Mg/2 Ml Vial) 4 mg IVPUSH Q8H PRN PRN Reason: Nausea and Vomiting Quetiapine Fumarate (Quetiapine Fumarate 50 Mg Tablet) 50 mg PO BEDTIME [facility] Last Admin: 08/24/23 20:57 Dose: 50 mg Documented By: LIGIA Sodium Chloride (0.9 % Sodium Chloride Flush 3 Ml Syringe) 3 ml IVFLUSH QSHIFT [facility] Last Admin: 08/25/23 08:48 Dose: 3 ml Documented By: BRANDON Labs 08/21/23 05:47 08/23/23 05:44 Labs: Laboratory Results - last 24 hr 08/24/23 08/24/23 08/24/23 11:09 16:05 20:03 POC Glucose 111 168 H 133 H 08/25/23 07:22 POC Glucose 122 H Assessment and Plan (1) Major neurocognitive disorder due to another medical condition: Status: Acute Plan 73-year-old man presented to the ER on 07/26/2023 initially with suicide ideation but then denied. Patient found to require guardianship, was found to have no competency. Court date for guardianship is pending inpatient will be admitted. Major neurocognitive disorder due to another medical condition History of dementia Hypertension continue losartan Diabetes mellitus type 2 continue metformin, lantus, SSI BPH Continue finasteride mood Continue Lexapro, Seroquel DVT ppx - Heparin Attending Devyn Gerard Full code Patient awaiting guardianship and LTC placement. No capacity per psychiatry Quality Stroke Does the patient have a stroke diagnosis?: No VTE Prior VTE?: No VTE Risk Level:: Medical - moderate - high VTE Device Contraindication: Treatment Not Tolerated VTE Drug Contraindication: N/A - Med Ordered
[2023-08-25 11:25] LABS: Glucose, Whole Blood 143 mg/dL (60-115)
--- NOTE | 2023-08-25 14:33 | MHC.CM.PN ---
Guardianship is now in place. Ana Maria Valdez: , fax # [phone]. Awaiting treatment orders for Surendra's. JONAS spoke with guardian who states she is beginning to investigate patient's financials. Aware of eventual plan for LTC. Guardian will update CM office. CM will continue to follow for safe dc.
[2023-08-25 14:56] VITALS: BP 109/58; PULSE 76; RESP 15; TEMP 36.3; O2SAT 96
[2023-08-25 16:05] LABS: Glucose, Whole Blood 113 mg/dL (60-115)
[2023-08-25 19:43] VITALS: BP 123/58; PULSE 80; RESP 16; TEMP 36.4; O2SAT 96
[2023-08-25 20:30] LABS: Glucose, Whole Blood 177 mg/dL (60-115)
[2023-08-25] MEDS: Insulin Glargine,Hum.rec.anlog 100 UNIT/ML 10 ML VIAL 25 UNIT SUBCUT (20:57)
[2023-08-25] MEDS: Insulin Lispro 100 UNIT/ML 3 ML VIAL SUBCUT (20:57)
[2023-08-25] MEDS: QUEtiapine Fumarate 50 MG TABLET PO (20:58)
[2023-08-26 03:54] VITALS: BP 119/64; PULSE 73; RESP 16; TEMP 36.3; O2SAT 97
[2023-08-26 07:22] VITALS: BP 103/61; PULSE 71; RESP 15; TEMP 36.4; O2SAT 97
--- NOTE | 2023-08-26 07:28 | P.PNIM_ITS ---
Subjective Subjective Date of Service: 08/26/23 Interval History: follow up for placement no overnight events feeling well Review of Systems Review of Systems: Yes all other systems are reviewed and are negative Constitutional Constitutional: Denies chills and Denies fever(s) Cardiovascular Cardiovascular: Denies chest pain Physical Exam 2 Vital Signs: Vital Signs: Last Vital Signs Temp 97.6 F 08/26/23 07:22 Pulse 71 08/26/23 07:22 Resp 15 08/26/23 07:22 BP 103/61 08/26/23 07:22 Pulse Ox 97 08/26/23 07:22 O2 Del Method Room Air 08/26/23 07:22 BMI result Body Mass Index 24.0 alert, oriented to self soft abd LSCTA Objective Data Active Medications Acetaminophen (Acetaminophen 325 Mg Tablet) 650 mg PO Q6H PRN PRN Reason: Pain, Mild (Pain Scale 1-3) Last Admin: 08/18/23 08:36 Dose: 650 mg Documented By: YAMILET Atorvastatin Calcium (Atorvastatin Calcium 40 Mg Tablet) 40 mg PO DAILY [facility] Last Admin: 08/25/23 08:48 Dose: 40 mg Documented By: BRANDON Dextrose (Dextrose 50 % 25 Gm/50 Ml Syringe) 25 gm IVPUSH Q15M PRN; Protocol PRN Reason: per Hypoglycemia Standing Ord. Escitalopram Oxalate (Escitalopram Oxalate 10 Mg Tablet) 10 mg PO DAILY [facility] Last Admin: 08/25/23 08:48 Dose: 10 mg Documented By: BRANDON Finasteride (Finasteride 5 Mg Tablet) 5 mg PO DAILY [facility] Last Admin: 08/25/23 08:48 Dose: 5 mg Documented By: BRANDON Glucose (Glucose Gel 15 Gm Gel..Gram.) 15 gm PO Q15M PRN; Protocol PRN Reason: per Hypoglycemia Standing Ord. Heparin Sodium (Porcine) (Heparin Sodium,Porcine 5,000 Unit/Ml Vial) 5,000 unit SUBCUT Q12H [facility] Last Admin: 08/25/23 23:41 Dose: 5,000 unit Documented By: PRASANNA Insulin Glargine (Insulin Glargine,Hum.Rec.Anlog 100 Unit/Ml 10 Ml Vial) 25 unit SUBCUT BEDTIME [facility] Last Admin: 08/25/23 20:57 Dose: 25 unit Documented By: PRASANNA Insulin Human Lispro (Insulin Lispro 100 Unit/Ml 3 Ml Vial) 0 unit SUBCUT QIDACHS [facility]; Protocol Last Admin: 08/26/23 07:25 Dose: Not Given Documented By: BRANDON Non-Admin Reason: No Insulin Coverage Losartan Potassium (Losartan Potassium 25 Mg Tablet) 25 mg PO DAILY [facility]; Protocol Last Admin: 08/25/23 08:48 Dose: 25 mg Documented By: BRANDON Metformin HCl (Metformin Hcl 1,000 Mg Tablet) 1,000 mg PO BIDWM [facility] Last Admin: 08/25/23 16:13 Dose: 1,000 mg Documented By: BRANDON Ondansetron HCl (Ondansetron Hcl 4 Mg/2 Ml Vial) 4 mg IVPUSH Q8H PRN PRN Reason: Nausea and Vomiting Quetiapine Fumarate (Quetiapine Fumarate 50 Mg Tablet) 50 mg PO BEDTIME [facility] Last Admin: 08/25/23 20:58 Dose: 50 mg Documented By: PRASANNA Sodium Chloride (0.9 % Sodium Chloride Flush 3 Ml Syringe) 3 ml IVFLUSH QSHIFT [facility] Last Admin: 08/25/23 20:58 Dose: Not Given Documented By: PRASANNA Non-Admin Reason: No Access Labs 08/21/23 05:47 08/23/23 05:44 Labs: Laboratory Results - last 24 hr 08/25/23 08/25/23 08/25/23 07:22 11:18 15:55 POC Glucose 122 H 143 H 113 08/25/23 19:42 POC Glucose 177 H Assessment and Plan (1) Major neurocognitive disorder due to another medical condition: Status: Acute Plan 73-year-old man presented to the ER on 07/26/2023 initially with suicide ideation but then denied. Patient found to require guardianship, was found to have no competency. Court date for guardianship is pending inpatient will be admitted. Major neurocognitive disorder due to another medical condition History of dementia suportive care Hypertension stable BP continue losartan Diabetes mellitus type 2 continue metformin, lantus, SSI BPH Continue finasteride mood Continue Lexapro, Seroquel DVT ppx - Heparin Attending Devyn Gerard Full code Patient awaiting guardianship and LTC placement. No capacity per psychiatry Quality Stroke Does the patient have a stroke diagnosis?: No VTE Prior VTE?: No VTE Risk Level:: Medical - moderate - high VTE Device Contraindication: Treatment Not Tolerated VTE Drug Contraindication: N/A - Med Ordered
[2023-08-26] MEDS: metFORMIN HCl 1,000 MG TABLET 1000 MG PO ×2 (07:58→16:32)
[2023-08-26] MEDS: Losartan Potassium 25 MG TABLET PO (07:58)
[2023-08-26] MEDS: Finasteride 5 MG TABLET PO (07:58)
[2023-08-26] MEDS: Atorvastatin Calcium 40 MG TABLET PO (07:58)
[2023-08-26 07:59] LABS: Glucose, Whole Blood 108 mg/dL (60-115)
[2023-08-26] MEDS: Escitalopram Oxalate 10 MG TABLET PO (08:00)
[2023-08-26 12:02] LABS: Glucose, Whole Blood 115 mg/dL (60-115)
[2023-08-26] MEDS: Heparin Sodium,Porcine 5,000 UNIT/ML VIAL 5000 UNIT SUBCUT (12:23)
[2023-08-26 15:00] VITALS: BP 125/61; PULSE 78; RESP 18; TEMP 36.1; O2SAT 96
[2023-08-26 16:32] LABS: Glucose, Whole Blood 155 mg/dL (60-115)
[2023-08-26] MEDS: Insulin Lispro 100 UNIT/ML 3 ML VIAL SUBCUT (16:34)
[2023-08-26 19:46] VITALS: BP 133/64; PULSE 82; RESP 18; TEMP 36.5; O2SAT 98
[2023-08-26 20:24] LABS: Glucose, Whole Blood 114 mg/dL (60-115)
[2023-08-26] MEDS: Insulin Glargine,Hum.rec.anlog 100 UNIT/ML 10 ML VIAL 25 UNIT SUBCUT (20:46)
[2023-08-26] MEDS: QUEtiapine Fumarate 50 MG TABLET PO (20:46)
[2023-08-27] MEDS: Heparin Sodium,Porcine 5,000 UNIT/ML VIAL 5000 UNIT SUBCUT ×2 (00:25→12:21)
[2023-08-27 03:39] VITALS: BP 120/68; PULSE 70; RESP 18; TEMP 36.8; O2SAT 98
[2023-08-27 07:25] LABS: Glucose, Whole Blood 84 mg/dL (60-115)
[2023-08-27 07:32] VITALS: BP 126/58; PULSE 67; RESP 18; TEMP 36.6; O2SAT 97
[2023-08-27] MEDS: Losartan Potassium 25 MG TABLET PO (07:57)
[2023-08-27] MEDS: Escitalopram Oxalate 10 MG TABLET PO (07:58)
[2023-08-27] MEDS: Finasteride 5 MG TABLET PO (07:58)
[2023-08-27] MEDS: Atorvastatin Calcium 40 MG TABLET PO (07:58)
[2023-08-27] MEDS: metFORMIN HCl 1,000 MG TABLET 1000 MG PO ×2 (07:58→17:12)
--- NOTE | 2023-08-27 09:40 | HO.PM.IMPN ---
Subjective Subjective Date of Service: 08/27/23 Interval History: Awaiting placement, no acute issues, and voice no complaint Physical Exam Vital Signs: Vital Signs: Last Vital Signs Temp 98 F 08/27/23 07:32 Pulse 67 08/27/23 07:32 Resp 18 08/27/23 07:32 BP 126/58 L 08/27/23 07:32 Pulse Ox 97 08/27/23 07:32 O2 Del Method Room Air 08/27/23 07:32 BMI result Body Mass Index 24.0 General: oriented to self, no distress Resp: CTA bilateral CVS: S1,S2,RRR GI: +BS, NT, no distention Skin: No rash Neuro: motor grossly intact Psych: appropriate affect Objective Data Active Medications Acetaminophen (Acetaminophen 325 Mg Tablet) 650 mg PO Q6H PRN PRN Reason: Pain, Mild (Pain Scale 1-3) Last Admin: 08/18/23 08:36 Dose: 650 mg Documented By: YAMILET Atorvastatin Calcium (Atorvastatin Calcium 40 Mg Tablet) 40 mg PO DAILY [facility] Last Admin: 08/27/23 07:58 Dose: 40 mg Documented By: YAMILET Dextrose (Dextrose 50 % 25 Gm/50 Ml Syringe) 25 gm IVPUSH Q15M PRN; Protocol PRN Reason: per Hypoglycemia Standing Ord. Escitalopram Oxalate (Escitalopram Oxalate 10 Mg Tablet) 10 mg PO DAILY [facility] Last Admin: 08/27/23 07:58 Dose: 10 mg Documented By: YAMILET Finasteride (Finasteride 5 Mg Tablet) 5 mg PO DAILY [facility] Last Admin: 08/27/23 07:58 Dose: 5 mg Documented By: YAMILET Glucose (Glucose Gel 15 Gm Gel..Gram.) 15 gm PO Q15M PRN; Protocol PRN Reason: per Hypoglycemia Standing Ord. Heparin Sodium (Porcine) (Heparin Sodium,Porcine 5,000 Unit/Ml Vial) 5,000 unit SUBCUT Q12H [facility] Last Admin: 08/27/23 00:25 Dose: 5,000 unit Documented By: DENISSE Insulin Glargine (Insulin Glargine,Hum.Rec.Anlog 100 Unit/Ml 10 Ml Vial) 25 unit SUBCUT BEDTIME [facility] Last Admin: 08/26/23 20:46 Dose: 25 unit Documented By: DENISSE Insulin Human Lispro (Insulin Lispro 100 Unit/Ml 3 Ml Vial) 0 unit SUBCUT QIDACHS [facility]; Protocol Last Admin: 08/27/23 07:33 Dose: Not Given Documented By: YAMILET Non-Admin Reason: No Insulin Coverage Losartan Potassium (Losartan Potassium 25 Mg Tablet) 25 mg PO DAILY [facility]; Protocol Last Admin: 08/27/23 07:57 Dose: 25 mg Documented By: YAMILET Metformin HCl (Metformin Hcl 1,000 Mg Tablet) 1,000 mg PO BIDWM [facility] Last Admin: 08/27/23 07:58 Dose: 1,000 mg Documented By: YAMILET Ondansetron HCl (Ondansetron Hcl 4 Mg/2 Ml Vial) 4 mg IVPUSH Q8H PRN PRN Reason: Nausea and Vomiting Quetiapine Fumarate (Quetiapine Fumarate 50 Mg Tablet) 50 mg PO BEDTIME [facility] Last Admin: 08/26/23 20:46 Dose: 50 mg Documented By: DENISSE Sodium Chloride (0.9 % Sodium Chloride Flush 3 Ml Syringe) 3 ml IVFLUSH QSHIFT [facility] Last Admin: 08/27/23 07:22 Dose: Not Given Documented By: YAMILET Non-Admin Reason: No Access Labs 08/21/23 05:47 08/23/23 05:44 Labs: Laboratory Results - last 24 hr 08/26/23 08/26/23 08/26/23 11:59 16:21 19:44 POC Glucose 115 155 H 114 08/27/23 07:18 POC Glucose 84 Assessment and Plan (1) Major neurocognitive disorder due to another medical condition: Status: Acute Plan 73-year-old man presented to the ER on 07/26/2023 initially with suicide ideation but then denied--lacks capacity and waiting on court appointed guardian Major neurocognitive disorder due to another medical condition on top of unspecified dementia -suportive care -pending guardianship Hypertension, losartan Diabetes mellitus type 2 -metformin, lantus, SSI, poc checks BPH - finasteride mood desorder -Lexapro, Seroquel DVT ppx - Heparin Full code awaiting guardianship and palcement Quality Stroke Does the patient have a stroke diagnosis?: No VTE Prior VTE?: No VTE Risk Level:: Medical - moderate - high VTE Device Contraindication: Treatment Not Tolerated VTE Drug Contraindication: N/A - Med Ordered
[2023-08-27 11:45] LABS: Glucose, Whole Blood 179 mg/dL (60-115)
--- NOTE | 2023-08-27 12:17 | MHC.CM.PN ---
EMR reviewed. CM awaiting update from guardian on financials to begin LTC search.
[2023-08-27] MEDS: Insulin Lispro 100 UNIT/ML 3 ML VIAL SUBCUT ×3 (12:19→20:17)
[2023-08-27 15:01] VITALS: BP 114/59; PULSE 78; RESP 18; TEMP 36.1; O2SAT 98
[2023-08-27 16:58] LABS: Glucose, Whole Blood 164 mg/dL (60-115)
[2023-08-27 20:00] VITALS: BP 119/64; PULSE 76; RESP 18; TEMP 37.1; O2SAT 98
[2023-08-27 20:05] LABS: Glucose, Whole Blood 194 mg/dL (60-115)
[2023-08-27] MEDS: Insulin Glargine,Hum.rec.anlog 100 UNIT/ML 10 ML VIAL 25 UNIT SUBCUT (20:17)
[2023-08-27] MEDS: QUEtiapine Fumarate 50 MG TABLET PO (20:18)
[2023-08-28] MEDS: Heparin Sodium,Porcine 5,000 UNIT/ML VIAL 5000 UNIT SUBCUT ×2 (00:10→12:07)
[2023-08-28 03:12] VITALS: BP 110/59; PULSE 72; RESP 16; TEMP 36.4; O2SAT 96
[2023-08-28 06:26] LABS: Creatinine Clr Calc Pharmacy 88.6; Estimated Glomerular Filt Rate > 60
[2023-08-28 07:24] VITALS: BP 121/67; PULSE 70; RESP 18; TEMP 35.9; O2SAT 98
[2023-08-28 07:36] LABS: Glucose, Whole Blood 99 mg/dL (60-115)
[2023-08-28] MEDS: Losartan Potassium 25 MG TABLET PO (08:57)
[2023-08-28] MEDS: Atorvastatin Calcium 40 MG TABLET PO (08:57)
[2023-08-28] MEDS: Finasteride 5 MG TABLET PO (08:57)
[2023-08-28] MEDS: Escitalopram Oxalate 10 MG TABLET PO (08:57)
[2023-08-28] MEDS: metFORMIN HCl 1,000 MG TABLET 1000 MG PO ×2 (08:57→17:30)
--- NOTE | 2023-08-28 09:53 | P.PNIM_ITS ---
Subjective Subjective Date of Service: 08/28/23 Interval History: Awaiting placement, no new issues Physical Exam 2 Vital Signs: Vital Signs: Last Vital Signs Temp 96.7 F L 08/28/23 07:24 Pulse 70 08/28/23 07:24 Resp 18 08/28/23 07:24 BP 121/67 08/28/23 07:24 Pulse Ox 98 08/28/23 07:24 O2 Del Method Room Air 08/28/23 07:24 BMI result Body Mass Index 24.0 General: oriented to self, no distress Resp: CTA bilateral CVS: S1,S2,RRR GI: +BS, NT, no distention Skin: No rash Neuro: motor grossly intact Psych: appropriate affect Objective Data Active Medications Acetaminophen (Acetaminophen 325 Mg Tablet) 650 mg PO Q6H PRN PRN Reason: Pain, Mild (Pain Scale 1-3) Last Admin: 08/18/23 08:36 Dose: 650 mg Documented By: YAMILET Atorvastatin Calcium (Atorvastatin Calcium 40 Mg Tablet) 40 mg PO DAILY [facility] Last Admin: 08/28/23 08:57 Dose: 40 mg Documented By: YAMILET Dextrose (Dextrose 50 % 25 Gm/50 Ml Syringe) 25 gm IVPUSH Q15M PRN; Protocol PRN Reason: per Hypoglycemia Standing Ord. Escitalopram Oxalate (Escitalopram Oxalate 10 Mg Tablet) 10 mg PO DAILY [facility] Last Admin: 08/28/23 08:57 Dose: 10 mg Documented By: YAMILET Finasteride (Finasteride 5 Mg Tablet) 5 mg PO DAILY [facility] Last Admin: 08/28/23 08:57 Dose: 5 mg Documented By: YAMILET Glucose (Glucose Gel 15 Gm Gel..Gram.) 15 gm PO Q15M PRN; Protocol PRN Reason: per Hypoglycemia Standing Ord. Heparin Sodium (Porcine) (Heparin Sodium,Porcine 5,000 Unit/Ml Vial) 5,000 unit SUBCUT Q12H [facility] Last Admin: 08/28/23 00:10 Dose: 5,000 unit Documented By: ALLYN Insulin Glargine (Insulin Glargine,Hum.Rec.Anlog 100 Unit/Ml 10 Ml Vial) 25 unit SUBCUT BEDTIME [facility] Last Admin: 08/27/23 20:17 Dose: 25 unit Documented By: ALLYN Insulin Human Lispro (Insulin Lispro 100 Unit/Ml 3 Ml Vial) 0 unit SUBCUT QIDACHS [facility]; Protocol Last Admin: 08/28/23 07:36 Dose: Not Given Documented By: YAMILET Non-Admin Reason: No Insulin Coverage Losartan Potassium (Losartan Potassium 25 Mg Tablet) 25 mg PO DAILY [facility]; Protocol Last Admin: 08/28/23 08:57 Dose: 25 mg Documented By: YAMILET Metformin HCl (Metformin Hcl 1,000 Mg Tablet) 1,000 mg PO BIDWM [facility] Last Admin: 08/28/23 08:57 Dose: 1,000 mg Documented By: YAMILET Ondansetron HCl (Ondansetron Hcl 4 Mg/2 Ml Vial) 4 mg IVPUSH Q8H PRN PRN Reason: Nausea and Vomiting Quetiapine Fumarate (Quetiapine Fumarate 50 Mg Tablet) 50 mg PO BEDTIME [facility] Last Admin: 08/27/23 20:18 Dose: 50 mg Documented By: CASTILDaniel Sodium Chloride (0.9 % Sodium Chloride Flush 3 Ml Syringe) 3 ml IVFLUSH QSHIFT [facility] Last Admin: 08/28/23 08:57 Dose: Not Given Documented By: YAMILET Non-Admin Reason: No Access Labs 08/21/23 05:47 08/28/23 05:46 Labs: Laboratory Results - last 24 hr 08/27/23 08/27/23 08/27/23 11:29 16:53 19:59 Estim Creat Clear Calc Estimated GFR POC Glucose 179 H 164 H 194 H 08/28/23 08/28/23 05:46 07:28 Estim Creat Clear Calc 88.6 Estimated GFR > 60 POC Glucose 99 Assessment and Plan (1) Major neurocognitive disorder due to another medical condition: Status: Acute Plan 73-year-old man presented to the ER on 07/26/2023 initially with suicide ideation but then denied--lacks capacity and waiting on court appointed guardian no change in care at this time Major neurocognitive disorder due to another medical condition on top of unspecified dementia -suportive care -pending guardianship Hypertension, losartan Diabetes mellitus type 2 -metformin, lantus, SSI, poc checks BPH - finasteride mood desorder -Lexapro, Seroquel DVT ppx - Heparin Full code awaiting guardianship and palcement Quality Stroke Does the patient have a stroke diagnosis?: No VTE Prior VTE?: No VTE Risk Level:: Medical - moderate - high VTE Device Contraindication: Treatment Not Tolerated VTE Drug Contraindication: N/A - Med Ordered
[2023-08-28 11:21] LABS: Glucose, Whole Blood 210 mg/dL (60-115)
[2023-08-28] MEDS: Insulin Lispro 100 UNIT/ML 3 ML VIAL SUBCUT ×2 (12:07→20:33)
[2023-08-28 13:40] LABS: Glucose, Whole Blood 151 mg/dL (60-115)
[2023-08-28 15:10] VITALS: BP 106/52; PULSE 73; RESP 18; TEMP 36.6; O2SAT 98
[2023-08-28 16:10] LABS: Glucose, Whole Blood 105 mg/dL (60-115)
[2023-08-28 19:17] VITALS: BP 115/55; PULSE 74; RESP 18; TEMP 36.4; O2SAT 97
[2023-08-28 20:24] LABS: Glucose, Whole Blood 169 mg/dL (60-115)
[2023-08-28] MEDS: Insulin Glargine,Hum.rec.anlog 100 UNIT/ML 10 ML VIAL 25 UNIT SUBCUT (20:32)
[2023-08-28] MEDS: QUEtiapine Fumarate 50 MG TABLET PO (20:32)
[2023-08-29] MEDS: Heparin Sodium,Porcine 5,000 UNIT/ML VIAL 5000 UNIT SUBCUT ×2 (00:29→12:30)
[2023-08-29 03:22] VITALS: BP 105/61; PULSE 71; RESP 16; TEMP 36.2; O2SAT 95
[2023-08-29 07:26] VITALS: BP 113/62; PULSE 64; RESP 17; TEMP 36.2; O2SAT 95
[2023-08-29 07:33] LABS: Glucose, Whole Blood 109 mg/dL (60-115)
[2023-08-29] MEDS: metFORMIN HCl 1,000 MG TABLET 1000 MG PO ×2 (08:07→17:15)
[2023-08-29] MEDS: Losartan Potassium 25 MG TABLET PO (08:07)
[2023-08-29] MEDS: Finasteride 5 MG TABLET PO (08:07)
[2023-08-29] MEDS: Atorvastatin Calcium 40 MG TABLET PO (08:07)
[2023-08-29] MEDS: Escitalopram Oxalate 10 MG TABLET PO (08:07)
--- NOTE | 2023-08-29 09:41 | HO.PM.IMPN ---
Subjective Subjective Date of Service: 08/29/23 Interval History: Awaiting placement, no new issues, vitals stable, no nursing concerns Physical Exam Vital Signs: Vital Signs: Last Vital Signs Temp 97.1 F 08/29/23 07:26 Pulse 64 08/29/23 07:26 Resp 17 08/29/23 07:26 BP 113/62 08/29/23 07:26 Pulse Ox 95 08/29/23 07:26 O2 Del Method Room Air 08/29/23 07:26 BMI result Body Mass Index 24.0 General: oriented to self, no distress Resp: CTA bilateral CVS: S1,S2,RRR GI: +BS, NT, no distention Skin: No rash Neuro: motor grossly intact Psych: appropriate affect Objective Data Active Medications Acetaminophen (Acetaminophen 325 Mg Tablet) 650 mg PO Q6H PRN PRN Reason: Pain, Mild (Pain Scale 1-3) Last Admin: 08/18/23 08:36 Dose: 650 mg Documented By: YAMILET Atorvastatin Calcium (Atorvastatin Calcium 40 Mg Tablet) 40 mg PO DAILY [facility] Last Admin: 08/29/23 08:07 Dose: 40 mg Documented By: SYEDA Dextrose (Dextrose 50 % 25 Gm/50 Ml Syringe) 25 gm IVPUSH Q15M PRN; Protocol PRN Reason: per Hypoglycemia Standing Ord. Escitalopram Oxalate (Escitalopram Oxalate 10 Mg Tablet) 10 mg PO DAILY [facility] Last Admin: 08/29/23 08:07 Dose: 10 mg Documented By: SYEDA Finasteride (Finasteride 5 Mg Tablet) 5 mg PO DAILY [facility] Last Admin: 08/29/23 08:07 Dose: 5 mg Documented By: SYEDA Glucose (Glucose Gel 15 Gm Gel..Gram.) 15 gm PO Q15M PRN; Protocol PRN Reason: per Hypoglycemia Standing Ord. Heparin Sodium (Porcine) (Heparin Sodium,Porcine 5,000 Unit/Ml Vial) 5,000 unit SUBCUT Q12H [facility] Last Admin: 08/29/23 00:29 Dose: 5,000 unit Documented By: ALLYN Insulin Glargine (Insulin Glargine,Hum.Rec.Anlog 100 Unit/Ml 10 Ml Vial) 25 unit SUBCUT BEDTIME [facility] Last Admin: 08/28/23 20:32 Dose: 25 unit Documented By: HO.CASTILM Insulin Human Lispro (Insulin Lispro 100 Unit/Ml 3 Ml Vial) 0 unit SUBCUT QIDACHS [facility]; Protocol Last Admin: 08/29/23 07:30 Dose: Not Given Documented By: SYEDA Non-Admin Reason: No Insulin Coverage Losartan Potassium (Losartan Potassium 25 Mg Tablet) 25 mg PO DAILY [facility]; Protocol Last Admin: 08/29/23 08:07 Dose: 25 mg Documented By: SYEDA Metformin HCl (Metformin Hcl 1,000 Mg Tablet) 1,000 mg PO BIDWM [facility] Last Admin: 08/29/23 08:07 Dose: 1,000 mg Documented By: SYEDA Ondansetron HCl (Ondansetron Hcl 4 Mg/2 Ml Vial) 4 mg IVPUSH Q8H PRN PRN Reason: Nausea and Vomiting Quetiapine Fumarate (Quetiapine Fumarate 50 Mg Tablet) 50 mg PO BEDTIME [facility] Last Admin: 08/28/23 20:32 Dose: 50 mg Documented By: CASTILDaniel Sodium Chloride (0.9 % Sodium Chloride Flush 3 Ml Syringe) 3 ml IVFLUSH QSHIFT [facility] Last Admin: 08/29/23 08:07 Dose: Not Given Documented By: SYEDA Non-Admin Reason: No Access Labs 08/21/23 05:47 08/28/23 05:46 Labs: Laboratory Results - last 24 hr 08/28/23 08/28/23 08/28/23 11:12 13:34 16:06 POC Glucose 210 H 151 H 105 08/28/23 08/29/23 19:19 07:29 POC Glucose 169 H 109 Assessment and Plan (1) Major neurocognitive disorder due to another medical condition: Status: Acute Plan 73-year-old man presented to the ER on 07/26/2023 initially with suicide ideation but then denied--lacks capacity and waiting on court appointed guardian no change in care at this time Major neurocognitive disorder due to another medical condition on top of unspecified dementia -suportive care -pending guardianship Hypertension, losartan Diabetes mellitus type 2 -metformin, lantus, SSI, poc checks BPH - finasteride mood desorder -Lexapro, Seroquel DVT ppx - Heparin Full code awaiting guardianship and palcement, daily update with cm and nursing out of bed, ambulate Quality Stroke Does the patient have a stroke diagnosis?: No VTE Prior VTE?: No VTE Risk Level:: Medical - moderate - high VTE Device Contraindication: Treatment Not Tolerated VTE Drug Contraindication: N/A - Med Ordered
--- NOTE | 2023-08-29 11:04 | MHC.CM.PN ---
EMR reviewed. CM awaiting update from guardian on financials to begin LTC search.
[2023-08-29 11:12] LABS: Glucose, Whole Blood 176 mg/dL (60-115)
[2023-08-29] MEDS: Insulin Lispro 100 UNIT/ML 3 ML VIAL SUBCUT (11:35)
[2023-08-29 16:00] VITALS: BP 99/55; PULSE 76; RESP 16; TEMP 36.4; O2SAT 97
[2023-08-29 16:32] LABS: Glucose, Whole Blood 108 mg/dL (60-115)
[2023-08-29 19:39] VITALS: BP 109/55; PULSE 77; RESP 18; TEMP 36.5; O2SAT 98
[2023-08-29 20:36] LABS: Glucose, Whole Blood 128 mg/dL (60-115)
[2023-08-29] MEDS: QUEtiapine Fumarate 50 MG TABLET PO (20:47)
[2023-08-29] MEDS: Insulin Glargine,Hum.rec.anlog 100 UNIT/ML 10 ML VIAL 25 UNIT SUBCUT (20:47)
[2023-08-30] MEDS: Heparin Sodium,Porcine 5,000 UNIT/ML VIAL 5000 UNIT SUBCUT ×3 (00:52→23:48)
[2023-08-30 02:58] VITALS: BP 115/64; PULSE 84; RESP 18; TEMP 36.6; O2SAT 97
[2023-08-30 07:43] LABS: Glucose, Whole Blood 95 mg/dL (60-115)
[2023-08-30 07:49] VITALS: BP 118/60; PULSE 81; RESP 18; TEMP 36.7; O2SAT 94
--- NOTE | 2023-08-30 08:03 | P.PNIM_ITS ---
Subjective Subjective Date of Service: 08/30/23 Interval History: No change Physical Exam 2 Vital Signs: Vital Signs: Last Vital Signs Temp 98.0 F 08/30/23 07:49 Pulse 81 08/30/23 07:49 Resp 18 08/30/23 07:49 BP 118/60 08/30/23 07:49 Pulse Ox 94 08/30/23 07:49 O2 Del Method Room Air 08/30/23 07:49 BMI result Body Mass Index 24.0 Objective Data Active Medications Acetaminophen (Acetaminophen 325 Mg Tablet) 650 mg PO Q6H PRN PRN Reason: Pain, Mild (Pain Scale 1-3) Last Admin: 08/18/23 08:36 Dose: 650 mg Documented By: YAMILET Atorvastatin Calcium (Atorvastatin Calcium 40 Mg Tablet) 40 mg PO DAILY [facility] Last Admin: 08/29/23 08:07 Dose: 40 mg Documented By: SYEDA Dextrose (Dextrose 50 % 25 Gm/50 Ml Syringe) 25 gm IVPUSH Q15M PRN; Protocol PRN Reason: per Hypoglycemia Standing Ord. Escitalopram Oxalate (Escitalopram Oxalate 10 Mg Tablet) 10 mg PO DAILY [facility] Last Admin: 08/29/23 08:07 Dose: 10 mg Documented By: SYEDA Finasteride (Finasteride 5 Mg Tablet) 5 mg PO DAILY [facility] Last Admin: 08/29/23 08:07 Dose: 5 mg Documented By: SYEDA Glucose (Glucose Gel 15 Gm Gel..Gram.) 15 gm PO Q15M PRN; Protocol PRN Reason: per Hypoglycemia Standing Ord. Heparin Sodium (Porcine) (Heparin Sodium,Porcine 5,000 Unit/Ml Vial) 5,000 unit SUBCUT Q12H [facility] Last Admin: 08/30/23 00:52 Dose: 5,000 unit Documented By: SARA Insulin Glargine (Insulin Glargine,Hum.Rec.Anlog 100 Unit/Ml 10 Ml Vial) 25 unit SUBCUT BEDTIME [facility] Last Admin: 08/29/23 20:47 Dose: 25 unit Documented By: RADHA Insulin Human Lispro (Insulin Lispro 100 Unit/Ml 3 Ml Vial) 0 unit SUBCUT QIDACHS [facility]; Protocol Last Admin: 08/29/23 20:48 Dose: Not Given Documented By: RADHA Non-Admin Reason: No Insulin Coverage Losartan Potassium (Losartan Potassium 25 Mg Tablet) 25 mg PO DAILY [facility]; Protocol Last Admin: 08/29/23 08:07 Dose: 25 mg Documented By: SYEDA Metformin HCl (Metformin Hcl 1,000 Mg Tablet) 1,000 mg PO BIDWM [facility] Last Admin: 08/29/23 17:15 Dose: 1,000 mg Documented By: SYEDA Ondansetron HCl (Ondansetron Hcl 4 Mg/2 Ml Vial) 4 mg IVPUSH Q8H PRN PRN Reason: Nausea and Vomiting Quetiapine Fumarate (Quetiapine Fumarate 50 Mg Tablet) 50 mg PO BEDTIME [facility] Last Admin: 08/29/23 20:47 Dose: 50 mg Documented By: HELENARISDaniel Sodium Chloride (0.9 % Sodium Chloride Flush 3 Ml Syringe) 3 ml IVFLUSH QSHIFT [facility] Last Admin: 08/30/23 00:19 Dose: Not Given Documented By: SARA Non-Admin Reason: No Access Labs 08/21/23 05:47 08/28/23 05:46 Labs: Laboratory Results - last 24 hr 08/29/23 08/29/23 08/29/23 11:07 16:27 20:33 POC Glucose 176 H 108 128 H 08/30/23 07:35 POC Glucose 95 Assessment and Plan (1) Major neurocognitive disorder due to another medical condition: Status: Acute Plan 73-year-old man presented to the ER on 07/26/2023 initially with suicide ideation but then denied--lacks capacity and waiting on court appointed guardian no change in care at this time Major neurocognitive disorder due to another medical condition on top of unspecified dementia -suportive care -pending guardianship Hypertension, losartan Diabetes mellitus type 2 -metformin, lantus, SSI, poc checks BPH - finasteride mood desorder -Lexapro, Seroquel DVT ppx - Heparin Full code awaiting guardianship and palcement, daily update with cm and nursing out of bed, ambulate periodic lab checks Quality Stroke Does the patient have a stroke diagnosis?: No VTE Prior VTE?: No VTE Risk Level:: Medical - moderate - high VTE Device Contraindication: Treatment Not Tolerated VTE Drug Contraindication: N/A - Med Ordered
[2023-08-30] MEDS: Losartan Potassium 25 MG TABLET PO (08:56)
[2023-08-30] MEDS: Finasteride 5 MG TABLET PO (08:57)
[2023-08-30] MEDS: Atorvastatin Calcium 40 MG TABLET PO (08:57)
[2023-08-30] MEDS: Escitalopram Oxalate 10 MG TABLET PO (08:57)
[2023-08-30] MEDS: metFORMIN HCl 1,000 MG TABLET 1000 MG PO ×2 (08:57→17:11)
[2023-08-30 11:41] LABS: Glucose, Whole Blood 188 mg/dL (60-115)
[2023-08-30] MEDS: Insulin Lispro 100 UNIT/ML 3 ML VIAL SUBCUT (11:52)
[2023-08-30 15:35] VITALS: BP 118/56; PULSE 84; RESP 18; TEMP 36.9; O2SAT 97
[2023-08-30 16:02] LABS: Glucose, Whole Blood 130 mg/dL (60-115)
[2023-08-30 19:36] VITALS: BP 116/63; PULSE 82; RESP 18; TEMP 36.8; O2SAT 96
[2023-08-30 20:29] LABS: Glucose, Whole Blood 138 mg/dL (60-115)
[2023-08-30] MEDS: QUEtiapine Fumarate 50 MG TABLET PO (20:39)
[2023-08-30] MEDS: Insulin Glargine,Hum.rec.anlog 100 UNIT/ML 10 ML VIAL 25 UNIT SUBCUT (20:39)
[2023-08-31 02:57] VITALS: BP 112/63; PULSE 94; RESP 18; TEMP 36.9; O2SAT 97
[2023-08-31 07:41] VITALS: BP 125/69; PULSE 92; RESP 20; TEMP 36.6; O2SAT 99
[2023-08-31 07:46] LABS: Glucose, Whole Blood 136 mg/dL (60-115)
[2023-08-31] MEDS: Atorvastatin Calcium 40 MG TABLET PO (08:14)
[2023-08-31] MEDS: Escitalopram Oxalate 10 MG TABLET PO (08:14)
[2023-08-31] MEDS: metFORMIN HCl 1,000 MG TABLET 1000 MG PO ×2 (08:14→16:42)
[2023-08-31] MEDS: Losartan Potassium 25 MG TABLET PO (08:14)
[2023-08-31] MEDS: Finasteride 5 MG TABLET PO (08:15)
--- NOTE | 2023-08-31 08:21 | HO.PM.IMPN ---
Subjective Subjective Date of Service: 08/31/23 Interval History: no new issues, clinically stable Physical Exam Vital Signs: Vital Signs: Last Vital Signs Temp 97.8 F 08/31/23 07:41 Pulse 92 08/31/23 07:41 Resp 20 08/31/23 07:41 BP 125/69 08/31/23 07:41 Pulse Ox 99 08/31/23 07:41 O2 Del Method Room Air 08/31/23 07:41 BMI result Body Mass Index 24.0 Objective Data Active Medications Acetaminophen (Acetaminophen 325 Mg Tablet) 650 mg PO Q6H PRN PRN Reason: Pain, Mild (Pain Scale 1-3) Last Admin: 08/18/23 08:36 Dose: 650 mg Documented By: YAMILET Atorvastatin Calcium (Atorvastatin Calcium 40 Mg Tablet) 40 mg PO DAILY [facility] Last Admin: 08/31/23 08:14 Dose: 40 mg Documented By: BRAD Dextrose (Dextrose 50 % 25 Gm/50 Ml Syringe) 25 gm IVPUSH Q15M PRN; Protocol PRN Reason: per Hypoglycemia Standing Ord. Escitalopram Oxalate (Escitalopram Oxalate 10 Mg Tablet) 10 mg PO DAILY [facility] Last Admin: 08/31/23 08:14 Dose: 10 mg Documented By: BRAD Finasteride (Finasteride 5 Mg Tablet) 5 mg PO DAILY [facility] Last Admin: 08/31/23 08:15 Dose: 5 mg Documented By: BRAD Glucose (Glucose Gel 15 Gm Gel..Gram.) 15 gm PO Q15M PRN; Protocol PRN Reason: per Hypoglycemia Standing Ord. Heparin Sodium (Porcine) (Heparin Sodium,Porcine 5,000 Unit/Ml Vial) 5,000 unit SUBCUT Q12H [facility] Last Admin: 08/30/23 23:48 Dose: 5,000 unit Documented By: HELENARISDaniel Insulin Glargine (Insulin Glargine,Hum.Rec.Anlog 100 Unit/Ml 10 Ml Vial) 25 unit SUBCUT BEDTIME [facility] Last Admin: 08/30/23 20:39 Dose: 25 unit Documented By: RADHA Insulin Human Lispro (Insulin Lispro 100 Unit/Ml 3 Ml Vial) 0 unit SUBCUT QIDACHS [facility]; Protocol Last Admin: 08/31/23 07:51 Dose: Not Given Documented By: BRAD Non-Admin Reason: No Insulin Coverage Losartan Potassium (Losartan Potassium 25 Mg Tablet) 25 mg PO DAILY [facility]; Protocol Last Admin: 08/31/23 08:14 Dose: 25 mg Documented By: BRAD Metformin HCl (Metformin Hcl 1,000 Mg Tablet) 1,000 mg PO BIDWM [facility] Last Admin: 08/31/23 08:14 Dose: 1,000 mg Documented By: BRAD Ondansetron HCl (Ondansetron Hcl 4 Mg/2 Ml Vial) 4 mg IVPUSH Q8H PRN PRN Reason: Nausea and Vomiting Quetiapine Fumarate (Quetiapine Fumarate 50 Mg Tablet) 50 mg PO BEDTIME [facility] Last Admin: 08/30/23 20:39 Dose: 50 mg Documented By: RADHA Labs 08/21/23 05:47 08/28/23 05:46 Labs: Laboratory Results - last 24 hr 08/30/23 08/30/23 08/30/23 11:18 15:57 20:25 POC Glucose 188 H 130 H 138 H 08/31/23 07:42 POC Glucose 136 H Assessment and Plan (1) Major neurocognitive disorder due to another medical condition: Status: Acute Plan 73-year-old man presented to the ER on 07/26/2023 initially with suicide ideation but then denied--lacks capacity and waiting on court appointed guardian no change in care at this time Major neurocognitive disorder due to another medical condition on top of unspecified dementia -suportive care -pending guardianship Hypertension, losartan Diabetes mellitus type 2 -metformin, lantus, SSI, poc checks BPH - finasteride mood desorder -Lexapro, Seroquel DVT ppx - Heparin Full code awaiting guardianship and palcement, daily update with cm and nursing out of bed, ambulate routine labs tomorrow Quality Stroke Does the patient have a stroke diagnosis?: No VTE Prior VTE?: No VTE Risk Level:: Medical - moderate - high VTE Device Contraindication: Treatment Not Tolerated VTE Drug Contraindication: N/A - Med Ordered
[2023-08-31 11:18] LABS: Glucose, Whole Blood 138 mg/dL (60-115)
[2023-08-31] MEDS: Heparin Sodium,Porcine 5,000 UNIT/ML VIAL 5000 UNIT SUBCUT (13:28)
[2023-08-31 15:33] VITALS: BP 127/58; PULSE 106; RESP 16; TEMP 37.3; O2SAT 97
[2023-08-31 16:07] LABS: Glucose, Whole Blood 156 mg/dL (60-115)
[2023-08-31] MEDS: Insulin Lispro 100 UNIT/ML 3 ML VIAL SUBCUT (16:42)
[2023-08-31 19:34] VITALS: BP 114/58; PULSE 97; RESP 18; TEMP 37.1; O2SAT 96
[2023-08-31 19:59] LABS: Glucose, Whole Blood 135 mg/dL (60-115)
[2023-08-31] MEDS: QUEtiapine Fumarate 50 MG TABLET PO (20:34)
[2023-08-31] MEDS: Insulin Glargine,Hum.rec.anlog 100 UNIT/ML 10 ML VIAL 25 UNIT SUBCUT (20:34)
[2023-09-01] MEDS: Heparin Sodium,Porcine 5,000 UNIT/ML VIAL 5000 UNIT SUBCUT ×2 (00:09→12:05)
[2023-09-01 04:00] VITALS: BP 135/68; PULSE 98; RESP 16; TEMP 36.6; O2SAT 95
[2023-09-01 07:11] VITALS: BP 122/68; PULSE 93; RESP 18; TEMP 37.1; O2SAT 95
[2023-09-01 07:22] LABS: Glucose, Whole Blood 126 mg/dL (60-115)
[2023-09-01 08:01] LABS: Hematocrit 38.3 % (42.0-52.0); Hemoglobin 13.6 g/dl (14.0-18.0); Mean Corpuscular HGB Conc 35.5 g/dl (31.0-36.0); Mean Corpuscular Hemoglobin 29.9 pg (27.0-33.0); Mean Corpuscular Volume 84.2 fL (80.0-98.0); Mean Platelet Volume 9.2 fL (9.4-12.4); Platelet Count 161 X10*3/uL (160-400); Red Blood Count 4.55 X10*6/uL (4.60-5.80); Red Cell Distribution Width 13.2 % (11.0-16.0); White Blood Count 6.2 X10*3/uL (4.8-10.8)
[2023-09-01 08:18] LABS: Anion Gap 15 (12-20); Blood Urea Nitrogen 12 mg/dL (9-16); Calcium 9.3 mg/dL (8.4-10.2); Carbon Dioxide 24 mmol/L (22-29); Chloride 96 mmol/L (96-108); Creatinine Clr Calc Pharmacy 77.8; Estimated Glomerular Filt Rate > 60; Glucose Random 119 mg/dL (60-115); Potassium 3.9 mmol/L (3.3-5.1); Sodium 131 mmol/L (135-145)
[2023-09-01] MEDS: Losartan Potassium 25 MG TABLET PO (08:29)
[2023-09-01] MEDS: Escitalopram Oxalate 10 MG TABLET PO (08:29)
[2023-09-01] MEDS: Atorvastatin Calcium 40 MG TABLET PO (08:29)
[2023-09-01] MEDS: metFORMIN HCl 1,000 MG TABLET 1000 MG PO ×2 (08:29→17:05)
[2023-09-01] MEDS: Finasteride 5 MG TABLET PO (08:29)
--- NOTE | 2023-09-01 08:47 | P.PNIM_ITS ---
Subjective Subjective Date of Service: 09/01/23 Interval History: Doing well, no new issues Physical Exam 2 Vital Signs: Vital Signs: Last Vital Signs Temp 98.8 F 09/01/23 07:11 Pulse 93 09/01/23 07:11 Resp 18 09/01/23 07:11 BP 122/68 09/01/23 07:11 Pulse Ox 95 09/01/23 07:11 O2 Del Method Room Air 09/01/23 07:11 BMI result Body Mass Index 24.0 General: AO X 2, no acute distress Resp: CTA bilateral CVS: S1,S2,RRR GI: +BS, NT, no distention Skin: No rash Neuro: motor grossly intact Psych: appropriate affect Objective Data Active Medications Acetaminophen (Acetaminophen 325 Mg Tablet) 650 mg PO Q6H PRN PRN Reason: Pain, Mild (Pain Scale 1-3) Last Admin: 08/18/23 08:36 Dose: 650 mg Documented By: YAMILET Atorvastatin Calcium (Atorvastatin Calcium 40 Mg Tablet) 40 mg PO DAILY [facility] Last Admin: 09/01/23 08:29 Dose: 40 mg Documented By: JUAN ANTONIO Dextrose (Dextrose 50 % 25 Gm/50 Ml Syringe) 25 gm IVPUSH Q15M PRN; Protocol PRN Reason: per Hypoglycemia Standing Ord. Escitalopram Oxalate (Escitalopram Oxalate 10 Mg Tablet) 10 mg PO DAILY [facility] Last Admin: 09/01/23 08:29 Dose: 10 mg Documented By: JUAN ANTONIO Finasteride (Finasteride 5 Mg Tablet) 5 mg PO DAILY [facility] Last Admin: 09/01/23 08:29 Dose: 5 mg Documented By: JUAN ANTONIO Glucose (Glucose Gel 15 Gm Gel..Gram.) 15 gm PO Q15M PRN; Protocol PRN Reason: per Hypoglycemia Standing Ord. Heparin Sodium (Porcine) (Heparin Sodium,Porcine 5,000 Unit/Ml Vial) 5,000 unit SUBCUT Q12H [facility] Last Admin: 09/01/23 00:09 Dose: 5,000 unit Documented By: SARA Insulin Glargine (Insulin Glargine,Hum.Rec.Anlog 100 Unit/Ml 10 Ml Vial) 25 unit SUBCUT BEDTIME [facility] Last Admin: 08/31/23 20:34 Dose: 25 unit Documented By: JUAN ANTONIO Insulin Human Lispro (Insulin Lispro 100 Unit/Ml 3 Ml Vial) 0 unit SUBCUT QIDACHS [facility]; Protocol Last Admin: 09/01/23 07:43 Dose: Not Given Documented By: JUAN ANTONIO Non-Admin Reason: No Insulin Coverage Losartan Potassium (Losartan Potassium 25 Mg Tablet) 25 mg PO DAILY [facility]; Protocol Last Admin: 09/01/23 08:29 Dose: 25 mg Documented By: JUAN ANTONIO Metformin HCl (Metformin Hcl 1,000 Mg Tablet) 1,000 mg PO BIDWM [facility] Last Admin: 09/01/23 08:29 Dose: 1,000 mg Documented By: JUAN ANTONIO Ondansetron HCl (Ondansetron Hcl 4 Mg/2 Ml Vial) 4 mg IVPUSH Q8H PRN PRN Reason: Nausea and Vomiting Quetiapine Fumarate (Quetiapine Fumarate 50 Mg Tablet) 50 mg PO BEDTIME [facility] Last Admin: 08/31/23 20:34 Dose: 50 mg Documented By: JUAN ANTONIO Labs 09/01/23 07:43 09/01/23 07:43 Labs: Laboratory Results - last 24 hr 08/31/23 08/31/23 08/31/23 11:15 16:02 19:53 MCV MCH MCHC RDW Plt Count MPV Absolute Nucleated RBC Nucleated RBC % (auto) Anion Gap Estim Creat Clear Calc Estimated GFR POC Glucose 138 H 156 H 135 H Random Glucose Calcium 09/01/23 09/01/23 07:02 07:43 MCV 84.2 MCH 29.9 MCHC 35.5 RDW 13.2 Plt Count 161 D MPV 9.2 L Absolute Nucleated RBC 0.000 Nucleated RBC % (auto) 0.0 Anion Gap 15 Estim Creat Clear Calc 77.8 Estimated GFR > 60 POC Glucose 126 H Random Glucose 119 H Calcium 9.3 Assessment and Plan (1) Major neurocognitive disorder due to another medical condition: Status: Acute Plan 73-year-old man presented to the ER on 07/26/2023 initially with suicide ideation but then denied--lacks capacity and waiting on court appointed guardian no change in care at this time Major neurocognitive disorder due to another medical condition on top of unspecified dementia -suportive care -pending guardianship Hypertension, losartan Diabetes mellitus type 2 -metformin, lantus, SSI, poc checks BPH - finasteride mood desorder -Lexapro, Seroquel DVT ppx - Heparin Full code awaiting guardianship and palcement, daily update with cm and nursing out of bed, ambulate routine labs / (bmp, cbc) unremarkable Quality Stroke Does the patient have a stroke diagnosis?: No VTE Prior VTE?: No VTE Risk Level:: Medical - moderate - high VTE Device Contraindication: Treatment Not Tolerated VTE Drug Contraindication: N/A - Med Ordered
--- NOTE | 2023-09-01 10:24 | MHC.CM.PN ---
Patient continues to await LTC placement. CM spoke with area secretary at guardian's office - guardian has not been able to access financials. Per area secretary may take several weeks. CM will continue to follow for safe dc.
[2023-09-01 11:17] LABS: Glucose, Whole Blood 232 mg/dL (60-115)
[2023-09-01] MEDS: Insulin Lispro 100 UNIT/ML 3 ML VIAL SUBCUT ×3 (12:05→20:59)
[2023-09-01 15:18] VITALS: BP 108/64; PULSE 93; RESP 18; TEMP 36.7; O2SAT 95
[2023-09-01 16:56] LABS: Glucose, Whole Blood 193 mg/dL (60-115)
[2023-09-01 19:39] VITALS: BP 103/67; PULSE 84; RESP 18; TEMP 36.6; O2SAT 97
[2023-09-01 20:33] LABS: Glucose, Whole Blood 207 mg/dL (60-115)
[2023-09-01] MEDS: QUEtiapine Fumarate 50 MG TABLET PO (20:59)
[2023-09-01] MEDS: Insulin Glargine,Hum.rec.anlog 100 UNIT/ML 10 ML VIAL 25 UNIT SUBCUT (21:00)
[2023-09-02] MEDS: Heparin Sodium,Porcine 5,000 UNIT/ML VIAL 5000 UNIT SUBCUT ×2 (00:42→12:03)
[2023-09-02 03:22] VITALS: BP 123/70; PULSE 84; RESP 16; TEMP 36.6; O2SAT 96
[2023-09-02 07:09] VITALS: BP 118/64; PULSE 83; RESP 18; TEMP 36.5; O2SAT 95
[2023-09-02 07:26] LABS: Glucose, Whole Blood 148 mg/dL (60-115)
[2023-09-02] MEDS: metFORMIN HCl 1,000 MG TABLET 1000 MG PO ×2 (08:15→17:21)
[2023-09-02] MEDS: Atorvastatin Calcium 40 MG TABLET PO (08:15)
[2023-09-02] MEDS: Escitalopram Oxalate 10 MG TABLET PO (08:15)
[2023-09-02] MEDS: Losartan Potassium 25 MG TABLET PO (08:15)
[2023-09-02] MEDS: Finasteride 5 MG TABLET PO (08:15)
--- NOTE | 2023-09-02 10:21 | P.PNIM_ITS ---
Subjective Subjective Date of Service: 09/02/23 Interval History: Doing well, no new issues Physical Exam 2 Vital Signs: Vital Signs: Last Vital Signs Temp 97.7 F 09/02/23 07:09 Pulse 83 09/02/23 07:09 Resp 18 09/02/23 07:09 BP 118/64 09/02/23 07:09 Pulse Ox 95 09/02/23 07:09 O2 Del Method Room Air 09/02/23 07:09 BMI result Body Mass Index 24.0 Objective Data Active Medications Acetaminophen (Acetaminophen 325 Mg Tablet) 650 mg PO Q6H PRN PRN Reason: Pain, Mild (Pain Scale 1-3) Last Admin: 08/18/23 08:36 Dose: 650 mg Documented By: YAMILET Atorvastatin Calcium (Atorvastatin Calcium 40 Mg Tablet) 40 mg PO DAILY [facility] Last Admin: 09/02/23 08:15 Dose: 40 mg Documented By: WALT Dextrose (Dextrose 50 % 25 Gm/50 Ml Syringe) 25 gm IVPUSH Q15M PRN; Protocol PRN Reason: per Hypoglycemia Standing Ord. Escitalopram Oxalate (Escitalopram Oxalate 10 Mg Tablet) 10 mg PO DAILY [facility] Last Admin: 09/02/23 08:15 Dose: 10 mg Documented By: WALT Finasteride (Finasteride 5 Mg Tablet) 5 mg PO DAILY [facility] Last Admin: 09/02/23 08:15 Dose: 5 mg Documented By: WALT Glucose (Glucose Gel 15 Gm Gel..Gram.) 15 gm PO Q15M PRN; Protocol PRN Reason: per Hypoglycemia Standing Ord. Heparin Sodium (Porcine) (Heparin Sodium,Porcine 5,000 Unit/Ml Vial) 5,000 unit SUBCUT Q12H [facility] Last Admin: 09/02/23 00:42 Dose: 5,000 unit Documented By: SARA Insulin Glargine (Insulin Glargine,Hum.Rec.Anlog 100 Unit/Ml 10 Ml Vial) 25 unit SUBCUT BEDTIME [facility] Last Admin: 09/01/23 21:00 Dose: 25 unit Documented By: JUAN ANTONIO Insulin Human Lispro (Insulin Lispro 100 Unit/Ml 3 Ml Vial) 0 unit SUBCUT QIDACHS [facility]; Protocol Last Admin: 09/02/23 08:20 Dose: Not Given Documented By: WALT Non-Admin Reason: No Insulin Coverage Losartan Potassium (Losartan Potassium 25 Mg Tablet) 25 mg PO DAILY [facility]; Protocol Last Admin: 09/02/23 08:15 Dose: 25 mg Documented By: WALT Metformin HCl (Metformin Hcl 1,000 Mg Tablet) 1,000 mg PO BIDWM [facility] Last Admin: 09/02/23 08:15 Dose: 1,000 mg Documented By: WALT Ondansetron HCl (Ondansetron Hcl 4 Mg/2 Ml Vial) 4 mg IVPUSH Q8H PRN PRN Reason: Nausea and Vomiting Quetiapine Fumarate (Quetiapine Fumarate 50 Mg Tablet) 50 mg PO BEDTIME [facility] Last Admin: 09/01/23 20:59 Dose: 50 mg Documented By: JUAN ANTONIO Labs 09/01/23 07:43 09/01/23 07:43 Labs: Laboratory Results - last 24 hr 09/01/23 09/01/23 09/01/23 10:58 16:42 20:27 POC Glucose 232 H 193 H 207 H 09/02/23 07:13 POC Glucose 148 H Assessment and Plan (1) Major neurocognitive disorder due to another medical condition: Status: Acute Plan 73-year-old man presented to the ER on 07/26/2023 initially with suicide ideation but then denied--lacks capacity and waiting on court appointed guardian continue as below Major neurocognitive disorder due to another medical condition on top of unspecified dementia -suportive care -pending guardianship Hypertension, losartan Diabetes mellitus type 2 -metformin, lantus, SSI, poc checks BPH - finasteride mood desorder -Lexapro, Seroquel DVT ppx - Heparin Full code awaiting guardianship and palcement, daily update with cm and nursing out of bed, ambulate routine labs 2/5 (bmp, cbc) unremarkable Quality Stroke Does the patient have a stroke diagnosis?: No VTE Prior VTE?: No VTE Risk Level:: Medical - moderate - high VTE Device Contraindication: Treatment Not Tolerated VTE Drug Contraindication: N/A - Med Ordered
[2023-09-02 11:19] LABS: Glucose, Whole Blood 237 mg/dL (60-115)
[2023-09-02] MEDS: Insulin Lispro 100 UNIT/ML 3 ML VIAL SUBCUT ×3 (12:04→21:01)
[2023-09-02 15:04] VITALS: BP 114/57; PULSE 84; RESP 18; TEMP 36.5; O2SAT 99
[2023-09-02 16:16] LABS: Glucose, Whole Blood 196 mg/dL (60-115)
[2023-09-02 19:14] VITALS: BP 115/58; PULSE 80; RESP 18; TEMP 36.4; O2SAT 97
[2023-09-02 20:29] LABS: Glucose, Whole Blood 194 mg/dL (60-115)
[2023-09-02] MEDS: QUEtiapine Fumarate 50 MG TABLET PO (21:02)
[2023-09-02] MEDS: Insulin Glargine,Hum.rec.anlog 100 UNIT/ML 10 ML VIAL 25 UNIT SUBCUT (21:02)
[2023-09-03] MEDS: Heparin Sodium,Porcine 5,000 UNIT/ML VIAL 5000 UNIT SUBCUT ×2 (01:51→12:56)
[2023-09-03 03:16] VITALS: BP 109/66; PULSE 90; RESP 16; TEMP 36.3; O2SAT 96
[2023-09-03 07:16] VITALS: BP 109/65; PULSE 80; RESP 16; TEMP 36; O2SAT 95
[2023-09-03 07:22] LABS: Glucose, Whole Blood 154 mg/dL (60-115)
[2023-09-03] MEDS: Losartan Potassium 25 MG TABLET PO (08:53)
[2023-09-03] MEDS: Atorvastatin Calcium 40 MG TABLET PO (08:53)
[2023-09-03] MEDS: Insulin Lispro 100 UNIT/ML 3 ML VIAL SUBCUT ×3 (08:53→21:06)
[2023-09-03] MEDS: metFORMIN HCl 1,000 MG TABLET 1000 MG PO ×2 (08:53→17:16)
[2023-09-03] MEDS: Finasteride 5 MG TABLET PO (08:53)
[2023-09-03] MEDS: Escitalopram Oxalate 10 MG TABLET PO (08:53)
[2023-09-03 11:13] LABS: Glucose, Whole Blood 244 mg/dL (60-115)
--- NOTE | 2023-09-03 14:04 | MHC.CM.PN ---
EMR reviewed. Patient awaiting LTC placement. Guardian will update when they have more information on financials.
[2023-09-03 14:53] VITALS: BP 94/55; PULSE 86; RESP 18; TEMP 36.6; O2SAT 98
--- NOTE | 2023-09-03 14:59 | P.PNIM_ITS ---
Subjective Subjective Date of Service: 09/03/23 Interval History: No acute issues overnight. Pleasantly confused Review of Systems Denies chest pain Denies shortness of breath Denies nausea vomiting diarrhea Denies fever chills Physical Exam 2 Vital Signs: Vital Signs: Last Vital Signs Temp 97.9 F 09/03/23 14:53 Pulse 86 09/03/23 14:53 Resp 18 09/03/23 14:53 BP 94/55 L 09/03/23 14:53 Pulse Ox 98 09/03/23 14:53 O2 Del Method Room Air 09/03/23 14:53 BMI result Body Mass Index 24.0 Const: Other: Awake alert confused no acute distress Resp: Other: Clear to auscultation bilaterally no rales rhonchi or wheezes Cardio: Other: No S4; positive S1-S2; no S3 murmurs rubs or gallops GI: Other: Soft nontender nondistended bowel sounds Extrem: Other: No edema bilaterally Objective Data Active Medications Acetaminophen (Acetaminophen 325 Mg Tablet) 650 mg PO Q6H PRN PRN Reason: Pain, Mild (Pain Scale 1-3) Last Admin: 08/18/23 08:36 Dose: 650 mg Documented By: YAMILET Atorvastatin Calcium (Atorvastatin Calcium 40 Mg Tablet) 40 mg PO DAILY [facility] Last Admin: 09/03/23 08:53 Dose: 40 mg Documented By: RENAE Dextrose (Dextrose 50 % 25 Gm/50 Ml Syringe) 25 gm IVPUSH Q15M PRN; Protocol PRN Reason: per Hypoglycemia Standing Ord. Escitalopram Oxalate (Escitalopram Oxalate 10 Mg Tablet) 10 mg PO DAILY [facility] Last Admin: 09/03/23 08:53 Dose: 10 mg Documented By: RENAE Finasteride (Finasteride 5 Mg Tablet) 5 mg PO DAILY [facility] Last Admin: 09/03/23 08:53 Dose: 5 mg Documented By: RENAE Glucose (Glucose Gel 15 Gm Gel..Gram.) 15 gm PO Q15M PRN; Protocol PRN Reason: per Hypoglycemia Standing Ord. Heparin Sodium (Porcine) (Heparin Sodium,Porcine 5,000 Unit/Ml Vial) 5,000 unit SUBCUT Q12H [facility] Last Admin: 09/03/23 12:56 Dose: 5,000 unit Documented By: RENAE Insulin Glargine (Insulin Glargine,Hum.Rec.Anlog 100 Unit/Ml 10 Ml Vial) 25 unit SUBCUT BEDTIME [facility] Last Admin: 09/02/23 21:02 Dose: 25 unit Documented By: TIN Insulin Human Lispro (Insulin Lispro 100 Unit/Ml 3 Ml Vial) 0 unit SUBCUT QIDACHS [facility]; Protocol Last Admin: 09/03/23 12:56 Dose: 4 unit Documented By: RENAE Losartan Potassium (Losartan Potassium 25 Mg Tablet) 25 mg PO DAILY [facility]; Protocol Last Admin: 09/03/23 08:53 Dose: 25 mg Documented By: RENAE Metformin HCl (Metformin Hcl 1,000 Mg Tablet) 1,000 mg PO BIDWM [facility] Last Admin: 09/03/23 08:53 Dose: 1,000 mg Documented By: RENAE Ondansetron HCl (Ondansetron Hcl 4 Mg/2 Ml Vial) 4 mg IVPUSH Q8H PRN PRN Reason: Nausea and Vomiting Quetiapine Fumarate (Quetiapine Fumarate 50 Mg Tablet) 50 mg PO BEDTIME [facility] Last Admin: 09/02/23 21:02 Dose: 50 mg Documented By: TIN Labs 09/01/23 07:43 09/01/23 07:43 Labs: Laboratory Results - last 24 hr 09/02/23 09/02/23 09/03/23 15:52 20:26 07:19 POC Glucose 196 H 194 H 154 H 09/03/23 11:08 POC Glucose 244 H Assessment and Plan (1) Major neurocognitive disorder due to another medical condition: Status: Acute Plan 73-year-old man presented to the ER on 07/26/2023 initially with suicide ideation but then denied. Patient found to require guardianship, was found to have no competency. Court date for guardianship is pending inpatient will be admitted. 1. Major neurocognitive disorder due to another medical condition -History of dementia -await forthcoming data from guardian 2.Hypertension -acceptable control on current therapy -adjust as indicated 3.Diabetes mellitus type 2 -acceptable control on current therapies -lispro correctional scale -adjust as indicated Heparin Full code Patient admitted for guardianship court date August 15. No capacity per psychiatry Quality Stroke Does the patient have a stroke diagnosis?: No VTE Prior VTE?: No VTE Risk Level:: Medical - moderate - high VTE Device Contraindication: Treatment Not Tolerated VTE Drug Contraindication: N/A - Med Ordered
[2023-09-03 16:02] LABS: Glucose, Whole Blood 148 mg/dL (60-115)
[2023-09-03 19:08] VITALS: BP 93/55; PULSE 81; RESP 18; TEMP 36.6; O2SAT 98
[2023-09-03 20:16] LABS: Glucose, Whole Blood 205 mg/dL (60-115)
[2023-09-03] MEDS: QUEtiapine Fumarate 50 MG TABLET PO (21:06)
[2023-09-03] MEDS: Insulin Glargine,Hum.rec.anlog 100 UNIT/ML 10 ML VIAL 25 UNIT SUBCUT (21:09)
[2023-09-04] MEDS: Heparin Sodium,Porcine 5,000 UNIT/ML VIAL 5000 UNIT SUBCUT ×2 (01:50→11:48)
[2023-09-04 03:30] VITALS: BP 112/56; PULSE 70; RESP 18; TEMP 36.3; O2SAT 98
[2023-09-04 07:31] LABS: Glucose, Whole Blood 134 mg/dL (60-115)
[2023-09-04 07:56] VITALS: BP 120/60; PULSE 69; RESP 12; TEMP 36.1; O2SAT 98
[2023-09-04] MEDS: Losartan Potassium 25 MG TABLET PO (08:44)
[2023-09-04] MEDS: Escitalopram Oxalate 10 MG TABLET PO (08:44)
[2023-09-04] MEDS: Finasteride 5 MG TABLET PO (08:44)
[2023-09-04] MEDS: metFORMIN HCl 1,000 MG TABLET 1000 MG PO ×2 (08:44→17:37)
[2023-09-04] MEDS: Atorvastatin Calcium 40 MG TABLET PO (08:44)
[2023-09-04 11:18] LABS: Glucose, Whole Blood 177 mg/dL (60-115)
[2023-09-04] MEDS: Insulin Lispro 100 UNIT/ML 3 ML VIAL SUBCUT ×2 (11:48→20:38)
--- NOTE | 2023-09-04 14:37 | HO.PM.IMPN ---
Subjective Subjective Date of Service: 09/04/23 Interval History: No acute issues overnight. Pleasantly confused Review of Systems Denies chest pain Denies shortness of breath Denies nausea vomiting diarrhea Denies fever chills Physical Exam Vital Signs: Vital Signs: Last Vital Signs Temp 96.9 F 09/04/23 07:56 Pulse 69 09/04/23 07:56 Resp 12 09/04/23 07:56 BP 120/60 09/04/23 07:56 Pulse Ox 98 09/04/23 07:56 O2 Del Method Room Air 09/04/23 07:56 BMI result Body Mass Index 24.0 Const: Other: Awake alert confused no acute distress Resp: Other: Clear to auscultation bilaterally no rales rhonchi or wheezes Cardio: Other: No S4; positive S1-S2; no S3 murmurs rubs or gallops GI: Other: Soft nontender nondistended bowel sounds Extrem: Other: No edema bilaterally Objective Data Active Medications Acetaminophen (Acetaminophen 325 Mg Tablet) 650 mg PO Q6H PRN PRN Reason: Pain, Mild (Pain Scale 1-3) Last Admin: 08/18/23 08:36 Dose: 650 mg Documented By: YAMILET Atorvastatin Calcium (Atorvastatin Calcium 40 Mg Tablet) 40 mg PO DAILY [facility] Last Admin: 09/04/23 08:44 Dose: 40 mg Documented By: BRAD Dextrose (Dextrose 50 % 25 Gm/50 Ml Syringe) 25 gm IVPUSH Q15M PRN; Protocol PRN Reason: per Hypoglycemia Standing Ord. Escitalopram Oxalate (Escitalopram Oxalate 10 Mg Tablet) 10 mg PO DAILY [facility] Last Admin: 09/04/23 08:44 Dose: 10 mg Documented By: BRAD Finasteride (Finasteride 5 Mg Tablet) 5 mg PO DAILY [facility] Last Admin: 09/04/23 08:44 Dose: 5 mg Documented By: BRAD Glucose (Glucose Gel 15 Gm Gel..Gram.) 15 gm PO Q15M PRN; Protocol PRN Reason: per Hypoglycemia Standing Ord. Heparin Sodium (Porcine) (Heparin Sodium,Porcine 5,000 Unit/Ml Vial) 5,000 unit SUBCUT Q12H [facility] Last Admin: 09/04/23 11:48 Dose: 5,000 unit Documented By: BRAD Insulin Glargine (Insulin Glargine,Hum.Rec.Anlog 100 Unit/Ml 10 Ml Vial) 25 unit SUBCUT BEDTIME [facility] Last Admin: 09/03/23 21:09 Dose: 25 unit Documented By: TIN Insulin Human Lispro (Insulin Lispro 100 Unit/Ml 3 Ml Vial) 0 unit SUBCUT QIDACHS [facility]; Protocol Last Admin: 09/04/23 11:48 Dose: 2 unit Documented By: BRAD Losartan Potassium (Losartan Potassium 25 Mg Tablet) 25 mg PO DAILY [facility]; Protocol Last Admin: 09/04/23 08:44 Dose: 25 mg Documented By: BRAD Metformin HCl (Metformin Hcl 1,000 Mg Tablet) 1,000 mg PO BIDWM [facility] Last Admin: 09/04/23 08:44 Dose: 1,000 mg Documented By: BRAD Ondansetron HCl (Ondansetron Hcl 4 Mg/2 Ml Vial) 4 mg IVPUSH Q8H PRN PRN Reason: Nausea and Vomiting Quetiapine Fumarate (Quetiapine Fumarate 50 Mg Tablet) 50 mg PO BEDTIME [facility] Last Admin: 09/03/23 21:06 Dose: 50 mg Documented By: TIN Labs 09/01/23 07:43 09/01/23 07:43 Labs: Laboratory Results - last 24 hr 09/03/23 09/03/23 09/04/23 15:44 20:09 07:27 POC Glucose 148 H 205 H 134 H 09/04/23 11:11 POC Glucose 177 H Assessment and Plan (1) Major neurocognitive disorder due to another medical condition: Status: Acute Plan 73-year-old man presented to the ER on 07/26/2023 initially with suicide ideation but then denied. Patient found to require guardianship, was found to have no competency. Court date for guardianship is pending inpatient will be admitted. 1. Major neurocognitive disorder due to another medical condition -History of dementia -await forthcoming data from guardian 2.Hypertension -acceptable control on current therapy -adjust as indicated 3.Diabetes mellitus type 2 -acceptable control on current therapies -lispro correctional scale -adjust as indicated Heparin Full code Patient admitted for guardianship court date August 15. No capacity per psychiatry Quality Stroke Does the patient have a stroke diagnosis?: No VTE Prior VTE?: No VTE Risk Level:: Medical - moderate - high VTE Device Contraindication: Treatment Not Tolerated VTE Drug Contraindication: N/A - Med Ordered
[2023-09-04 15:03] VITALS: BP 121/58; PULSE 87; RESP 16; TEMP 35.9; O2SAT 97
[2023-09-04 16:31] LABS: Glucose, Whole Blood 143 mg/dL (60-115)
[2023-09-04 19:39] VITALS: BP 118/59; PULSE 73; RESP 18; TEMP 36.1; O2SAT 97
[2023-09-04 20:12] LABS: Glucose, Whole Blood 185 mg/dL (60-115)
[2023-09-04] MEDS: QUEtiapine Fumarate 50 MG TABLET PO (20:38)
[2023-09-04] MEDS: Insulin Glargine,Hum.rec.anlog 100 UNIT/ML 10 ML VIAL 25 UNIT SUBCUT (20:38)
[2023-09-05] MEDS: Heparin Sodium,Porcine 5,000 UNIT/ML VIAL 5000 UNIT SUBCUT ×2 (00:42→12:11)
[2023-09-05 03:28] VITALS: BP 109/62; PULSE 71; RESP 17; TEMP 36.7; O2SAT 96
[2023-09-05 07:45] VITALS: BP 116/63; PULSE 71; RESP 17; TEMP 36; O2SAT 97
[2023-09-05 07:45] LABS: Glucose, Whole Blood 108 mg/dL (60-115)
[2023-09-05] MEDS: Atorvastatin Calcium 40 MG TABLET PO (08:47)
[2023-09-05] MEDS: Escitalopram Oxalate 10 MG TABLET PO (08:47)
[2023-09-05] MEDS: Losartan Potassium 25 MG TABLET PO (08:47)
[2023-09-05] MEDS: metFORMIN HCl 1,000 MG TABLET 1000 MG PO ×2 (08:47→16:17)
[2023-09-05] MEDS: Finasteride 5 MG TABLET PO (08:47)
[2023-09-05 11:19] LABS: Glucose, Whole Blood 165 mg/dL (60-115)
[2023-09-05] MEDS: Insulin Lispro 100 UNIT/ML 3 ML VIAL SUBCUT (12:08)
--- NOTE | 2023-09-05 14:27 | MHC.CM.PN ---
EMR REVIEWED. PT AWAITING LTC PLACEMENT ONCE GUARDIAN HAS SORTED THROUGH FINANCES/ASSETS. GUARDIAN WILL UPDATE. CM WILL CONTINUE TO FOLLOW FOR ANY CHANGE IN DC PLAN/NEEDS.
--- NOTE | 2023-09-05 15:12 | P.PNIM_ITS ---
Subjective Subjective Date of Service: 09/05/23 Interval History: No acute issues overnight. Pleasantly confused Review of Systems Denies chest pain Denies shortness of breath Denies nausea vomiting diarrhea Denies fever chills Physical Exam 2 Vital Signs: Vital Signs: Last Vital Signs Temp 96.8 F 09/05/23 07:45 Pulse 71 09/05/23 07:45 Resp 17 09/05/23 07:45 BP 116/63 09/05/23 07:45 Pulse Ox 97 09/05/23 07:45 O2 Del Method Room Air 09/05/23 07:45 BMI result Body Mass Index 24.0 Const: Other: Awake alert confused no acute distress Resp: Other: Clear to auscultation bilaterally no rales rhonchi or wheezes Cardio: Other: No S4; positive S1-S2; no S3 murmurs rubs or gallops GI: Other: Soft nontender nondistended bowel sounds Extrem: Other: No edema bilaterally Objective Data Active Medications Acetaminophen (Acetaminophen 325 Mg Tablet) 650 mg PO Q6H PRN PRN Reason: Pain, Mild (Pain Scale 1-3) Last Admin: 08/18/23 08:36 Dose: 650 mg Documented By: YAMILET Atorvastatin Calcium (Atorvastatin Calcium 40 Mg Tablet) 40 mg PO DAILY [facility] Last Admin: 09/05/23 08:47 Dose: 40 mg Documented By: BRAD Dextrose (Dextrose 50 % 25 Gm/50 Ml Syringe) 25 gm IVPUSH Q15M PRN; Protocol PRN Reason: per Hypoglycemia Standing Ord. Escitalopram Oxalate (Escitalopram Oxalate 10 Mg Tablet) 10 mg PO DAILY [facility] Last Admin: 09/05/23 08:47 Dose: 10 mg Documented By: BRAD Finasteride (Finasteride 5 Mg Tablet) 5 mg PO DAILY [facility] Last Admin: 09/05/23 08:47 Dose: 5 mg Documented By: BRAD Glucose (Glucose Gel 15 Gm Gel..Gram.) 15 gm PO Q15M PRN; Protocol PRN Reason: per Hypoglycemia Standing Ord. Heparin Sodium (Porcine) (Heparin Sodium,Porcine 5,000 Unit/Ml Vial) 5,000 unit SUBCUT Q12H [facility] Last Admin: 09/05/23 12:11 Dose: 5,000 unit Documented By: WILLIAM Insulin Glargine (Insulin Glargine,Hum.Rec.Anlog 100 Unit/Ml 10 Ml Vial) 25 unit SUBCUT BEDTIME [facility] Last Admin: 09/04/23 20:38 Dose: 25 unit Documented By: LIGIA Insulin Human Lispro (Insulin Lispro 100 Unit/Ml 3 Ml Vial) 0 unit SUBCUT QIDACHS [facility]; Protocol Last Admin: 09/05/23 12:08 Dose: 2 unit Documented By: WILLIAM Losartan Potassium (Losartan Potassium 25 Mg Tablet) 25 mg PO DAILY [facility]; Protocol Last Admin: 09/05/23 08:47 Dose: 25 mg Documented By: BRAD Metformin HCl (Metformin Hcl 1,000 Mg Tablet) 1,000 mg PO BIDWM [facility] Last Admin: 09/05/23 08:47 Dose: 1,000 mg Documented By: BRAD Ondansetron HCl (Ondansetron Hcl 4 Mg/2 Ml Vial) 4 mg IVPUSH Q8H PRN PRN Reason: Nausea and Vomiting Quetiapine Fumarate (Quetiapine Fumarate 50 Mg Tablet) 50 mg PO BEDTIME [facility] Last Admin: 09/04/23 20:38 Dose: 50 mg Documented By: LIGIA Labs 09/01/23 07:43 09/01/23 07:43 Labs: Laboratory Results - last 24 hr 09/04/23 09/04/23 09/05/23 16:27 20:04 07:30 POC Glucose 143 H 185 H 108 09/05/23 11:06 POC Glucose 165 H Assessment and Plan (1) Major neurocognitive disorder due to another medical condition: Status: Acute Plan 73-year-old man presented to the ER on 07/26/2023 initially with suicide ideation but then denied. Patient found to require guardianship, was found to have no competency. Court date for guardianship is pending inpatient will be admitted. 1. Major neurocognitive disorder due to another medical condition -History of dementia -await forthcoming data from guardian 2.Hypertension -acceptable control on current therapy -adjust as indicated 3.Diabetes mellitus type 2 -acceptable control on current therapies -lispro correctional scale -adjust as indicated Heparin Full code Patient admitted for guardianship court date August 15. No capacity per psychiatry Quality Stroke Does the patient have a stroke diagnosis?: No VTE Prior VTE?: No VTE Risk Level:: Medical - moderate - high VTE Device Contraindication: Treatment Not Tolerated VTE Drug Contraindication: N/A - Med Ordered
[2023-09-05 16:00] VITALS: BP 91/50; PULSE 76; RESP 18; TEMP 36.2; O2SAT 96
[2023-09-05 16:19] LABS: Glucose, Whole Blood 122 mg/dL (60-115)
[2023-09-05 20:00] VITALS: BP 104/55; PULSE 68; RESP 18; TEMP 37.1; O2SAT 97
[2023-09-05 20:12] LABS: Glucose, Whole Blood 111 mg/dL (60-115)
[2023-09-05] MEDS: QUEtiapine Fumarate 50 MG TABLET PO (20:40)
[2023-09-05] MEDS: Insulin Glargine,Hum.rec.anlog 100 UNIT/ML 10 ML VIAL 25 UNIT SUBCUT (20:40)
[2023-09-06] MEDS: Heparin Sodium,Porcine 5,000 UNIT/ML VIAL 5000 UNIT SUBCUT ×2 (00:09→12:25)
[2023-09-06 03:38] VITALS: BP 118/59; PULSE 75; RESP 18; TEMP 37.1; O2SAT 97
[2023-09-06 07:14] LABS: Glucose, Whole Blood 125 mg/dL (60-115)
[2023-09-06 08:00] VITALS: BP 112/58; PULSE 71; RESP 17; TEMP 36.6; O2SAT 96
[2023-09-06] MEDS: Escitalopram Oxalate 10 MG TABLET PO (08:25)
[2023-09-06] MEDS: Atorvastatin Calcium 40 MG TABLET PO (08:25)
[2023-09-06] MEDS: Losartan Potassium 25 MG TABLET PO (08:25)
[2023-09-06] MEDS: Finasteride 5 MG TABLET PO (08:25)
[2023-09-06] MEDS: metFORMIN HCl 1,000 MG TABLET 1000 MG PO ×2 (08:25→17:06)
[2023-09-06 11:11] LABS: Glucose, Whole Blood 217 mg/dL (60-115)
[2023-09-06] MEDS: Insulin Lispro 100 UNIT/ML 3 ML VIAL SUBCUT ×2 (12:25→21:54)
--- NOTE | 2023-09-06 12:36 | HO.PM.IMPN ---
Subjective Subjective Date of Service: 09/06/23 Interval History: No acute issues overnight. No agitated behavior noted Review of Systems Denies chest pain Denies shortness of breath Denies nausea vomiting diarrhea Denies fever chills Physical Exam Vital Signs: Vital Signs: Last Vital Signs Temp 98 F 09/06/23 08:00 Pulse 71 09/06/23 08:00 Resp 17 09/06/23 08:00 BP 112/58 L 09/06/23 08:00 Pulse Ox 96 09/06/23 08:00 O2 Del Method Room Air 09/06/23 08:00 BMI result Body Mass Index 24.0 Const: Other: Awake alert confused no acute distress Resp: Other: Clear to auscultation bilaterally no rales rhonchi or wheezes Cardio: Other: No S4; positive S1-S2; no S3 murmurs rubs or gallops GI: Other: Soft nontender nondistended bowel sounds Extrem: Other: No edema bilaterally Objective Data Active Medications Acetaminophen (Acetaminophen 325 Mg Tablet) 650 mg PO Q6H PRN PRN Reason: Pain, Mild (Pain Scale 1-3) Last Admin: 08/18/23 08:36 Dose: 650 mg Documented By: YAMILET Atorvastatin Calcium (Atorvastatin Calcium 40 Mg Tablet) 40 mg PO DAILY [facility] Last Admin: 09/06/23 08:25 Dose: 40 mg Documented By: SYEDA Dextrose (Dextrose 50 % 25 Gm/50 Ml Syringe) 25 gm IVPUSH Q15M PRN; Protocol PRN Reason: per Hypoglycemia Standing Ord. Escitalopram Oxalate (Escitalopram Oxalate 10 Mg Tablet) 10 mg PO DAILY [facility] Last Admin: 09/06/23 08:25 Dose: 10 mg Documented By: SYEDA Finasteride (Finasteride 5 Mg Tablet) 5 mg PO DAILY [facility] Last Admin: 09/06/23 08:25 Dose: 5 mg Documented By: SYEDA Glucose (Glucose Gel 15 Gm Gel..Gram.) 15 gm PO Q15M PRN; Protocol PRN Reason: per Hypoglycemia Standing Ord. Heparin Sodium (Porcine) (Heparin Sodium,Porcine 5,000 Unit/Ml Vial) 5,000 unit SUBCUT Q12H [facility] Last Admin: 09/06/23 12:25 Dose: 5,000 unit Documented By: SYEDA Insulin Glargine (Insulin Glargine,Hum.Rec.Anlog 100 Unit/Ml 10 Ml Vial) 25 unit SUBCUT BEDTIME [facility] Last Admin: 09/05/23 20:40 Dose: 25 unit Documented By: JUAN ANTONIO Insulin Human Lispro (Insulin Lispro 100 Unit/Ml 3 Ml Vial) 0 unit SUBCUT QIDACHS [facility]; Protocol Last Admin: 09/06/23 12:25 Dose: 4 unit Documented By: SYEDA Losartan Potassium (Losartan Potassium 25 Mg Tablet) 25 mg PO DAILY [facility]; Protocol Last Admin: 09/06/23 08:25 Dose: 25 mg Documented By: SYEDA Metformin HCl (Metformin Hcl 1,000 Mg Tablet) 1,000 mg PO BIDWM [facility] Last Admin: 09/06/23 08:25 Dose: 1,000 mg Documented By: SYEDA Ondansetron HCl (Ondansetron Hcl 4 Mg/2 Ml Vial) 4 mg IVPUSH Q8H PRN PRN Reason: Nausea and Vomiting Quetiapine Fumarate (Quetiapine Fumarate 50 Mg Tablet) 50 mg PO BEDTIME [facility] Last Admin: 09/05/23 20:40 Dose: 50 mg Documented By: JUAN ANTONIO Labs 09/01/23 07:43 09/01/23 07:43 Labs: Laboratory Results - last 24 hr 09/05/23 09/05/23 09/06/23 16:10 20:04 07:04 POC Glucose 122 H 111 125 H 09/06/23 11:07 POC Glucose 217 H Assessment and Plan (1) Major neurocognitive disorder due to another medical condition: Status: Acute Plan 73-year-old man presented to the ER on 07/26/2023 initially with suicide ideation but then denied. Patient found to require guardianship, was found to have no competency. Court date for guardianship is pending inpatient will be admitted. 1. Major neurocognitive disorder due to another medical condition -History of dementia -await forthcoming data from guardian 2.Hypertension -acceptable control on current therapy -adjust as indicated 3.Diabetes mellitus type 2 -acceptable control on current therapies -lispro correctional scale -adjust as indicated Heparin Full code Patient admitted for guardianship court date August 15. No capacity per psychiatry Quality Stroke Does the patient have a stroke diagnosis?: No VTE Prior VTE?: No VTE Risk Level:: Medical - moderate - high VTE Device Contraindication: Treatment Not Tolerated VTE Drug Contraindication: N/A - Med Ordered
[2023-09-06 15:55] VITALS: BP 115/64; PULSE 70; RESP 18; TEMP 36.8; O2SAT 96
[2023-09-06 16:06] LABS: Glucose, Whole Blood 120 mg/dL (60-115)
[2023-09-06 18:49] VITALS: BP 118/65; PULSE 74; RESP 20; TEMP 36.5; O2SAT 98
[2023-09-06 20:23] LABS: Glucose, Whole Blood 153 mg/dL (60-115)
[2023-09-06] MEDS: Insulin Glargine,Hum.rec.anlog 100 UNIT/ML 10 ML VIAL 25 UNIT SUBCUT (21:54)
[2023-09-06] MEDS: QUEtiapine Fumarate 50 MG TABLET PO (21:55)
[2023-09-07] MEDS: Heparin Sodium,Porcine 5,000 UNIT/ML VIAL 5000 UNIT SUBCUT ×2 (02:26→12:48)
[2023-09-07 03:54] VITALS: BP 123/66; PULSE 71; RESP 16; TEMP 36.2; O2SAT 98
[2023-09-07 06:54] VITALS: BP 143/68; PULSE 69; RESP 17; TEMP 36.1; O2SAT 96
[2023-09-07 07:13] LABS: Glucose, Whole Blood 116 mg/dL (60-115)
[2023-09-07] MEDS: Losartan Potassium 25 MG TABLET PO (08:10)
[2023-09-07] MEDS: Atorvastatin Calcium 40 MG TABLET PO (08:10)
[2023-09-07] MEDS: Escitalopram Oxalate 10 MG TABLET PO (08:11)
[2023-09-07] MEDS: metFORMIN HCl 1,000 MG TABLET 1000 MG PO ×2 (08:11→16:53)
[2023-09-07] MEDS: Finasteride 5 MG TABLET PO (08:11)
[2023-09-07 11:06] LABS: Glucose, Whole Blood 126 mg/dL (60-115)
--- NOTE | 2023-09-07 13:12 | P.PNIM_ITS ---
Subjective Subjective Date of Service: 09/07/23 Interval History: No acute issues overnight. No agitated behavior noted Review of Systems Denies chest pain Denies shortness of breath Denies nausea vomiting diarrhea Denies fever chills Physical Exam 2 Vital Signs: Vital Signs: Last Vital Signs Temp 97 F 09/07/23 06:54 Pulse 69 09/07/23 06:54 Resp 17 09/07/23 06:54 BP 143/68 H 09/07/23 06:54 Pulse Ox 96 09/07/23 06:54 O2 Del Method Room Air 09/07/23 06:54 BMI result Body Mass Index 24.0 Const: Other: Awake alert confused no acute distress Resp: Other: Clear to auscultation bilaterally no rales rhonchi or wheezes Cardio: Other: No S4; positive S1-S2; no S3 murmurs rubs or gallops GI: Other: Soft nontender nondistended bowel sounds Extrem: Other: No edema bilaterally Objective Data Active Medications Acetaminophen (Acetaminophen 325 Mg Tablet) 650 mg PO Q6H PRN PRN Reason: Pain, Mild (Pain Scale 1-3) Last Admin: 08/18/23 08:36 Dose: 650 mg Documented By: YAMILET Atorvastatin Calcium (Atorvastatin Calcium 40 Mg Tablet) 40 mg PO DAILY [facility] Last Admin: 09/07/23 08:10 Dose: 40 mg Documented By: SYEDA Dextrose (Dextrose 50 % 25 Gm/50 Ml Syringe) 25 gm IVPUSH Q15M PRN; Protocol PRN Reason: per Hypoglycemia Standing Ord. Escitalopram Oxalate (Escitalopram Oxalate 10 Mg Tablet) 10 mg PO DAILY [facility] Last Admin: 09/07/23 08:11 Dose: 10 mg Documented By: SYEDA Finasteride (Finasteride 5 Mg Tablet) 5 mg PO DAILY [facility] Last Admin: 09/07/23 08:11 Dose: 5 mg Documented By: SYEDA Glucose (Glucose Gel 15 Gm Gel..Gram.) 15 gm PO Q15M PRN; Protocol PRN Reason: per Hypoglycemia Standing Ord. Heparin Sodium (Porcine) (Heparin Sodium,Porcine 5,000 Unit/Ml Vial) 5,000 unit SUBCUT Q12H [facility] Last Admin: 09/07/23 12:48 Dose: 5,000 unit Documented By: SYEDA Insulin Glargine (Insulin Glargine,Hum.Rec.Anlog 100 Unit/Ml 10 Ml Vial) 25 unit SUBCUT BEDTIME [facility] Last Admin: 09/06/23 21:54 Dose: 25 unit Documented By: TIN Insulin Human Lispro (Insulin Lispro 100 Unit/Ml 3 Ml Vial) 0 unit SUBCUT QIDACHS [facility]; Protocol Last Admin: 09/07/23 12:25 Dose: Not Given Documented By: SYEDA Non-Admin Reason: No Insulin Coverage Losartan Potassium (Losartan Potassium 25 Mg Tablet) 25 mg PO DAILY [facility]; Protocol Last Admin: 09/07/23 08:10 Dose: 25 mg Documented By: SYEDA Metformin HCl (Metformin Hcl 1,000 Mg Tablet) 1,000 mg PO BIDWM [facility] Last Admin: 09/07/23 08:11 Dose: 1,000 mg Documented By: SYEDA Ondansetron HCl (Ondansetron Hcl 4 Mg/2 Ml Vial) 4 mg IVPUSH Q8H PRN PRN Reason: Nausea and Vomiting Quetiapine Fumarate (Quetiapine Fumarate 50 Mg Tablet) 50 mg PO BEDTIME [facility] Last Admin: 09/06/23 21:55 Dose: 50 mg Documented By: TIN Labs 09/01/23 07:43 09/01/23 07:43 Labs: Laboratory Results - last 24 hr 09/06/23 09/06/23 09/07/23 15:57 20:18 07:09 POC Glucose 120 H 153 H 116 H 09/07/23 11:01 POC Glucose 126 H Assessment and Plan (1) Major neurocognitive disorder due to another medical condition: Status: Acute Plan 73-year-old man presented to the ER on 07/26/2023 initially with suicide ideation but then denied. Patient found to require guardianship, was found to have no competency. Court date for guardianship is pending inpatient will be admitted. 1. Major neurocognitive disorder due to another medical condition -History of dementia -await forthcoming data from guardian 2.Hypertension -acceptable control on current therapy -adjust as indicated 3.Diabetes mellitus type 2 -acceptable control on current therapies -lispro correctional scale -adjust as indicated Heparin Full code Patient admitted for guardianship court date August 15. No capacity per psychiatry Quality Stroke Does the patient have a stroke diagnosis?: No VTE Prior VTE?: No VTE Risk Level:: Medical - moderate - high VTE Device Contraindication: Treatment Not Tolerated VTE Drug Contraindication: N/A - Med Ordered
[2023-09-07 15:58] VITALS: BP 116/57; PULSE 78; RESP 18; TEMP 36.2; O2SAT 96
[2023-09-07 16:31] LABS: Glucose, Whole Blood 174 mg/dL (60-115)
[2023-09-07] MEDS: Insulin Lispro 100 UNIT/ML 3 ML VIAL SUBCUT ×2 (16:53→21:01)
[2023-09-07 20:00] VITALS: BP 120/56; PULSE 75; RESP 20; TEMP 36.2; O2SAT 98
[2023-09-07] MEDS: QUEtiapine Fumarate 50 MG TABLET PO (20:02)
[2023-09-07 20:18] LABS: Glucose, Whole Blood 151 mg/dL (60-115)
[2023-09-07] MEDS: Insulin Glargine,Hum.rec.anlog 100 UNIT/ML 10 ML VIAL 25 UNIT SUBCUT (21:01)
[2023-09-08] MEDS: Heparin Sodium,Porcine 5,000 UNIT/ML VIAL 5000 UNIT SUBCUT ×3 (01:25→23:36)
[2023-09-08 03:00] VITALS: BP 106/60; PULSE 80; RESP 16; TEMP 36.9; O2SAT 97
[2023-09-08 07:22] VITALS: BP 112/62; PULSE 74; RESP 18; TEMP 36.7; O2SAT 95
[2023-09-08 07:41] LABS: Glucose, Whole Blood 138 mg/dL (60-115)
[2023-09-08] MEDS: Atorvastatin Calcium 40 MG TABLET PO (08:33)
[2023-09-08] MEDS: metFORMIN HCl 1,000 MG TABLET 1000 MG PO ×2 (08:33→16:50)
[2023-09-08] MEDS: Losartan Potassium 25 MG TABLET PO (08:33)
[2023-09-08] MEDS: Finasteride 5 MG TABLET PO (08:33)
[2023-09-08] MEDS: Escitalopram Oxalate 10 MG TABLET PO (08:33)
[2023-09-08 10:05] LABS: Creatinine Clr Calc Pharmacy 77.8; Estimated Glomerular Filt Rate > 60
--- NOTE | 2023-09-08 11:09 | HO.PM.IMPN ---
Subjective Subjective Date of Service: 09/08/23 Interval History: no new issues no complaints Physical Exam Vital Signs: Vital Signs: Last Vital Signs Temp 98.0 F 09/08/23 07:22 Pulse 74 09/08/23 07:22 Resp 18 09/08/23 07:22 BP 112/62 09/08/23 07:22 Pulse Ox 95 09/08/23 07:22 O2 Del Method Room Air 09/08/23 07:22 BMI result Body Mass Index 24.0 Gen: in no acute distress HEENT: sclera anicteric, moist mucus membranes Neck: supple Lungs: clear to auscultation bilaterally Heart: regular rate and rhythm, no murmurs Abd: soft, non-tender, non-distended Ext: no edema Skin: warm/well-perfused Neuro: alert, disoriented Psych: impaired insight Objective Data Active Medications Acetaminophen (Acetaminophen 325 Mg Tablet) 650 mg PO Q6H PRN PRN Reason: Pain, Mild (Pain Scale 1-3) Last Admin: 08/18/23 08:36 Dose: 650 mg Documented By: YAMILET Atorvastatin Calcium (Atorvastatin Calcium 40 Mg Tablet) 40 mg PO DAILY [facility] Last Admin: 09/08/23 08:33 Dose: 40 mg Documented By: PREETHI Dextrose (Dextrose 50 % 25 Gm/50 Ml Syringe) 25 gm IVPUSH Q15M PRN; Protocol PRN Reason: per Hypoglycemia Standing Ord. Escitalopram Oxalate (Escitalopram Oxalate 10 Mg Tablet) 10 mg PO DAILY [facility] Last Admin: 09/08/23 08:33 Dose: 10 mg Documented By: PREETHI Finasteride (Finasteride 5 Mg Tablet) 5 mg PO DAILY [facility] Last Admin: 09/08/23 08:33 Dose: 5 mg Documented By: PREETHI Glucose (Glucose Gel 15 Gm Gel..Gram.) 15 gm PO Q15M PRN; Protocol PRN Reason: per Hypoglycemia Standing Ord. Heparin Sodium (Porcine) (Heparin Sodium,Porcine 5,000 Unit/Ml Vial) 5,000 unit SUBCUT Q12H [facility] Last Admin: 09/08/23 01:25 Dose: 5,000 unit Documented By: JASON Insulin Glargine (Insulin Glargine,Hum.Rec.Anlog 100 Unit/Ml 10 Ml Vial) 25 unit SUBCUT BEDTIME [facility] Last Admin: 09/07/23 21:01 Dose: 25 unit Documented By: JASON Insulin Human Lispro (Insulin Lispro 100 Unit/Ml 3 Ml Vial) 0 unit SUBCUT QIDACHS [facility]; Protocol Last Admin: 09/08/23 07:46 Dose: Not Given Documented By: PREETHI Non-Admin Reason: No Insulin Coverage Losartan Potassium (Losartan Potassium 25 Mg Tablet) 25 mg PO DAILY [facility]; Protocol Last Admin: 09/08/23 08:33 Dose: 25 mg Documented By: PREETHI Metformin HCl (Metformin Hcl 1,000 Mg Tablet) 1,000 mg PO BIDWM [facility] Last Admin: 09/08/23 08:33 Dose: 1,000 mg Documented By: PREETHI Ondansetron HCl (Ondansetron Hcl 4 Mg/2 Ml Vial) 4 mg IVPUSH Q8H PRN PRN Reason: Nausea and Vomiting Quetiapine Fumarate (Quetiapine Fumarate 50 Mg Tablet) 50 mg PO BEDTIME [facility] Last Admin: 09/07/23 20:02 Dose: 50 mg Documented By: JASON Labs 09/01/23 07:43 09/08/23 09:27 Labs: Laboratory Results - last 24 hr 09/07/23 09/07/23 09/08/23 16:25 20:14 07:25 Estim Creat Clear Calc Estimated GFR POC Glucose 174 H 151 H 138 H 09/08/23 09:27 Estim Creat Clear Calc 77.8 Estimated GFR > 60 POC Glucose Assessment and Plan (1) Major neurocognitive disorder due to another medical condition: Status: [facility] [id number] 73yo M who originally presented to ED 07/26/23 with suicidal ideation that he subsequently denied. Found to have no competency so guardianship is being pursued dementia - escitalopram, quetiapine - CT scan, B12/folate HTN - losartan DM2 - MTF, glargine HLD - statin prostatism - finasteride VTE ppx - [facility] dispo - LTC Total time managing care of this patient today: 25 minutes. Quality Stroke Does the patient have a stroke diagnosis?: No VTE Prior VTE?: No VTE Risk Level:: Medical - moderate - high VTE Device Contraindication: Treatment Not Tolerated VTE Drug Contraindication: N/A - Med Ordered
[2023-09-08 11:21] LABS: Glucose, Whole Blood 175 mg/dL (60-115)
[2023-09-08] MEDS: Insulin Lispro 100 UNIT/ML 3 ML VIAL SUBCUT ×2 (11:36→20:00)
--- NOTE | 2023-09-08 13:45 | MHC.CM.PN ---
EMR REVIEWED. PT MEDICALLY CLEARED BUT AWAITING FINANCIALS TO BE SORTED OUT VIA GU[facility]IAN TO DETERMINE PAYER SOURCE FOR LTC. MESSAGE LEFT FOR [employer] FOR UPDATE ON THIS. CM WILL CONTINUE TO FOLLOW FOR ANY CHANGE IN DC PLAN/NEEDS.
[2023-09-08 15:29] VITALS: BP 102/54; PULSE 69; RESP 18; TEMP 36.1; O2SAT 98
[2023-09-08 16:04] LABS: Glucose, Whole Blood 110 mg/dL (60-115)
[2023-09-08 17:06] LABS: Folate 8.3 ng/mL (> or = 4.0)
[2023-09-08 19:20] VITALS: BP 98/57; PULSE 73; RESP 18; TEMP 36.5; O2SAT 98
[2023-09-08 19:35] LABS: Glucose, Whole Blood 178 mg/dL (60-115)
[2023-09-08] MEDS: Insulin Glargine,Hum.rec.anlog 100 UNIT/ML 10 ML VIAL 25 UNIT SUBCUT (19:59)
[2023-09-08] MEDS: QUEtiapine Fumarate 50 MG TABLET PO (19:59)
[2023-09-09 02:58] LABS: Vitamin B12 497 pg/mL (200-900)
[2023-09-09 04:00] VITALS: BP 130/71; PULSE 82; RESP 16; TEMP 36.2; O2SAT 96
[2023-09-09 07:24] VITALS: BP 123/69; PULSE 88; RESP 20; TEMP 36.4; O2SAT 97
[2023-09-09 07:29] LABS: Glucose, Whole Blood 149 mg/dL (60-115)
[2023-09-09] MEDS: Losartan Potassium 25 MG TABLET PO (07:34)
[2023-09-09] MEDS: metFORMIN HCl 1,000 MG TABLET 1000 MG PO ×2 (07:34→16:48)
[2023-09-09] MEDS: Escitalopram Oxalate 10 MG TABLET PO (07:34)
[2023-09-09] MEDS: Atorvastatin Calcium 40 MG TABLET PO (07:34)
[2023-09-09] MEDS: Finasteride 5 MG TABLET PO (07:34)
--- NOTE | 2023-09-09 11:13 | P.PNIM_ITS ---
Subjective Subjective Date of Service: 09/09/23 Interval History: no new issues no complaints Review of Systems Review of Systems: Yes all other systems are reviewed and are negative Physical Exam 2 Vital Signs: Vital Signs: Last Vital Signs Temp 97.6 F 09/09/23 07:24 Pulse 88 09/09/23 07:24 Resp 20 09/09/23 07:24 BP 123/69 09/09/23 07:24 Pulse Ox 97 09/09/23 07:24 O2 Del Method Room Air 09/09/23 07:24 BMI result Body Mass Index 24.0 Gen: in no acute distress Lungs: normal resp effort Neuro: alert, disoriented Psych: impaired insight Objective Data Active Medications Acetaminophen (Acetaminophen 325 Mg Tablet) 650 mg PO Q6H PRN PRN Reason: Pain, Mild (Pain Scale 1-3) Last Admin: 08/18/23 08:36 Dose: 650 mg Documented By: YAMILET Atorvastatin Calcium (Atorvastatin Calcium 40 Mg Tablet) 40 mg PO DAILY [facility] Last Admin: 09/09/23 07:34 Dose: 40 mg Documented By: PREETHI Dextrose (Dextrose 50 % 25 Gm/50 Ml Syringe) 25 gm IVPUSH Q15M PRN; Protocol PRN Reason: per Hypoglycemia Standing Ord. Escitalopram Oxalate (Escitalopram Oxalate 10 Mg Tablet) 10 mg PO DAILY [facility] Last Admin: 09/09/23 07:34 Dose: 10 mg Documented By: PREETHI Finasteride (Finasteride 5 Mg Tablet) 5 mg PO DAILY [facility] Last Admin: 09/09/23 07:34 Dose: 5 mg Documented By: PREETHI Glucose (Glucose Gel 15 Gm Gel..Gram.) 15 gm PO Q15M PRN; Protocol PRN Reason: per Hypoglycemia Standing Ord. Heparin Sodium (Porcine) (Heparin Sodium,Porcine 5,000 Unit/Ml Vial) 5,000 unit SUBCUT Q12H [facility] Last Admin: 09/08/23 23:36 Dose: 5,000 unit Documented By: ILENE Insulin Glargine (Insulin Glargine,Hum.Rec.Anlog 100 Unit/Ml 10 Ml Vial) 25 unit SUBCUT BEDTIME [facility] Last Admin: 09/08/23 19:59 Dose: 25 unit Documented By: ILENE Insulin Human Lispro (Insulin Lispro 100 Unit/Ml 3 Ml Vial) 0 unit SUBCUT QIDACHS [facility]; Protocol Last Admin: 09/09/23 07:29 Dose: Not Given Documented By: PREETHI Non-Admin Reason: No Insulin Coverage Losartan Potassium (Losartan Potassium 25 Mg Tablet) 25 mg PO DAILY [facility]; Protocol Last Admin: 09/09/23 07:34 Dose: 25 mg Documented By: PREETHI Metformin HCl (Metformin Hcl 1,000 Mg Tablet) 1,000 mg PO BIDWM [facility] Last Admin: 09/09/23 07:34 Dose: 1,000 mg Documented By: PREETHI Ondansetron HCl (Ondansetron Hcl 4 Mg/2 Ml Vial) 4 mg IVPUSH Q8H PRN PRN Reason: Nausea and Vomiting Quetiapine Fumarate (Quetiapine Fumarate 50 Mg Tablet) 50 mg PO BEDTIME [facility] Last Admin: 09/08/23 19:59 Dose: 50 mg Documented By: ILENE Labs 09/01/23 07:43 09/08/23 09:27 Labs: Laboratory Results - last 24 hr 09/08/23 09/08/23 09/08/23 11:18 13:08 15:59 POC Glucose 175 H 110 Vitamin B12 497 Folate 8.3 09/08/23 09/09/23 19:26 07:26 POC Glucose 178 H 149 H Vitamin B12 Folate Impressions Head CT 09/08/23 13:29 IMPRESSION: 1. No evidence of acute intracranial hemorrhage or edematous territorial infarction. 2. Mild to moderate underlying microangiopathy. Moderate generalized cerebral volume loss. Assessment and Plan (1) Major neurocognitive disorder due to another medical condition: Status: Acute [facility] d29 73yo M who originally presented to ED 07/26/23 with suicidal ideation that he subsequently denied. Found to have no competency so guardianship is being pursued dementia - escitalopram, quetiapine - CT scan, B12/folate HTN - losartan DM2 - MTF, glargine HLD - statin prostatism - finasteride VTE ppx - UFH dispo - LTC Total time managing care of this patient today: 25 minutes. Quality Stroke Does the patient have a stroke diagnosis?: No VTE Prior VTE?: No VTE Risk Level:: Medical - moderate - high VTE Device Contraindication: Treatment Not Tolerated VTE Drug Contraindication: N/A - Med Ordered
[2023-09-09 11:28] LABS: Glucose, Whole Blood 220 mg/dL (60-115)
[2023-09-09] MEDS: Heparin Sodium,Porcine 5,000 UNIT/ML VIAL 5000 UNIT SUBCUT (11:41)
[2023-09-09] MEDS: Insulin Lispro 100 UNIT/ML 3 ML VIAL SUBCUT ×2 (11:41→16:48)
[2023-09-09 15:32] VITALS: BP 108/53; PULSE 124; RESP 20; TEMP 38.4; O2SAT 95
--- NOTE | 2023-09-09 15:39 | PC.NURSE ---
Addendum entered by Jessica Diallo RN 09/09/23 15:59: Patient seen by Dr. Shultz,labs are pending,CXR pending Original Note: Temp 101.2,HR 123,patient has no complaints ,Dr. Shultz notified
[2023-09-09 16:26] LABS: Glucose, Whole Blood 186 mg/dL (60-115)
[2023-09-09] MEDS: Acetaminophen 325 MG TABLET 650 MG PO (16:48)
[2023-09-09 16:54] LABS: Influenza A PCR NEGATIVE (Negative); Influenza B PCR NEGATIVE (Negative); Resp Syncy Virus RNA Qual PCR NEGATIVE (Negative); SARS COV2 PCR INHOUSE POSITIVE (Negative)
--- NOTE | 2023-09-09 17:08 | PC.NURSE ---
Patient Covid positive,Dr. Shultz notified,transfer pending
--- NOTE | 2023-09-09 17:08 | PM.EVENT ---
Event Note Date of Service: 09/09/23 Event Note: called by RN for fever 101.2, HR 124 Pt in NAD. Denies fever, cough, chills, sore throat, abd pain, or diarrhea but poor historian. Ordered Covid/flu/RSV PCR, BCx, CBCd, UA micro, CXR, BMP, 1g ceftriaxone empirically Covid positive. Not hypoxic. Will give 3d remdesivir, transfer to telemetry, check CRP. Time Spent With Patient Time: Total time managing care of this patient today ____ minutes.
[2023-09-09 17:10] LABS: Hematocrit 39.5 % (42.0-52.0); Hemoglobin 13.9 g/dl (14.0-18.0); Mean Corpuscular HGB Conc 35.2 g/dl (31.0-36.0); Mean Corpuscular Hemoglobin 29.9 pg (27.0-33.0); Mean Corpuscular Volume 84.9 fL (80.0-98.0); Mean Platelet Volume 9.4 fL (9.4-12.4); Platelet Count 284 X10*3/uL (160-400); Red Blood Count 4.65 X10*6/uL (4.60-5.80); Red Cell Distribution Width 13.1 % (11.0-16.0); White Blood Count 7.1 X10*3/uL (4.8-10.8)
[2023-09-09 17:12] LABS: Anion Gap 15 (12-20); Blood Urea Nitrogen 18 mg/dL (9-16); Calcium 9.9 mg/dL (8.4-10.2); Carbon Dioxide 23 mmol/L (22-29); Chloride 102 mmol/L (96-108); Estimated Glomerular Filt Rate > 60; Glucose Random 184 mg/dL (60-115); Potassium 4.6 mmol/L (3.3-5.1); Sodium 135 mmol/L (135-145)
[2023-09-09 17:14] LABS: Lactic Acid 2.6 mmol/L (0.5-2.0)
--- NOTE | 2023-09-09 17:47 | PC.NURSE ---
#20 angio inserted to left hand,patient tolerated it well.Report given to MERNA Royal RN made aware of need to start IV fluid and IV antibiotic.
[2023-09-09] MEDS: 0.9 % Sodium Chloride 1,000 ML 125 ML IVCONT (18:19)
[2023-09-09 18:20] LABS: C Reactive Protein 0.46 mg/dL (< or = 0.50)
[2023-09-09] MEDS: cefTRIAXone sodium 1 GM in 0.9 % Sodium Chloride 50 ML IV (18:21)
[2023-09-09 18:35] VITALS: BP 118/58; PULSE 99; RESP 16; TEMP 37.3; O2SAT 95
[2023-09-09 18:42] LABS: Procalcitonin 0.06 ng/mL
[2023-09-09 18:55] LABS: Reflex Lactate? Lactic Acid Added
[2023-09-09 19:32] VITALS: BP 107/51; PULSE 95; RESP 16; TEMP 37.1; O2SAT 96
[2023-09-09 20:07] LABS: Glucose, Whole Blood 142 mg/dL (60-115)
[2023-09-09 20:28] LABS: ~Lactic Acid-LAB USE ONLY 2.8 mmol/L (0.5-2.0)
[2023-09-09] MEDS: Insulin Glargine,Hum.rec.anlog 100 UNIT/ML 10 ML VIAL 25 UNIT SUBCUT (21:03)
[2023-09-09] MEDS: QUEtiapine Fumarate 50 MG TABLET PO (21:03)
[2023-09-09 22:05] LABS: Reflex Lactate? 2 Y
[2023-09-09 22:55] LABS: ~Lactic Acid-LAB USE ONLY 2.5 mmol/L (0.5-2.0)
[2023-09-10] MEDS: Heparin Sodium,Porcine 5,000 UNIT/ML VIAL 5000 UNIT SUBCUT ×3 (01:22→12:27)
[2023-09-10] MEDS: Acetaminophen 325 MG TABLET 650 MG PO ×2 (03:13→21:15)
[2023-09-10 03:15] VITALS: BP 119/65; PULSE 95; RESP 20; TEMP 38.2; O2SAT 96
[2023-09-10 04:15] VITALS: TEMP 37.5
[2023-09-10 07:31] VITALS: BP 104/62; PULSE 77; RESP 20; TEMP 36.9; O2SAT 95
[2023-09-10 07:39] LABS: Glucose, Whole Blood 99 mg/dL (60-115)
[2023-09-10] MEDS: Remdesivir 200 MG in 0.9 % Sodium Chloride 210 ML 105 MG IV (09:50)
[2023-09-10] MEDS: Finasteride 5 MG TABLET PO (09:50)
[2023-09-10] MEDS: Atorvastatin Calcium 40 MG TABLET PO (09:50)
[2023-09-10] MEDS: metFORMIN HCl 1,000 MG TABLET 1000 MG PO ×2 (09:50→17:01)
[2023-09-10] MEDS: Escitalopram Oxalate 10 MG TABLET PO (09:50)
[2023-09-10] MEDS: Losartan Potassium 25 MG TABLET PO (09:50)
--- NOTE | 2023-09-10 10:50 | P.PNIM_ITS ---
Subjective Subjective Date of Service: 09/10/23 Interval History: Febrile to 101.2 and found to have Covid-19. Not hypoxic. Denies symptoms but poor historian. Review of Systems Review of Systems: Yes all other systems are reviewed and are negative Physical Exam 2 Vital Signs: Vital Signs: Last Vital Signs Temp 98.4 F 09/10/23 07:31 Pulse 77 09/10/23 07:31 Resp 20 09/10/23 07:31 BP 104/62 09/10/23 07:31 Pulse Ox 95 09/10/23 07:31 O2 Del Method Room Air 09/10/23 07:31 BMI result Body Mass Index 24.0 Gen: in no acute distress HEENT: sclera anicteric, moist mucus membranes Neck: supple Lungs: clear to auscultation bilaterally Heart: regular rate and rhythm, no murmurs Abd: soft, non-tender, non-distended Ext: no edema Skin: warm/well-perfused Neuro: alert, disoriented, moving all extremities Psych: impaired insight Objective Data Active Medications Acetaminophen (Acetaminophen 325 Mg Tablet) 650 mg PO Q6H PRN PRN Reason: Pain, Mild (Pain Scale 1-3) Last Admin: 09/10/23 03:13 Dose: 650 mg Documented By: WILNER Atorvastatin Calcium (Atorvastatin Calcium 40 Mg Tablet) 40 mg PO DAILY [facility] Last Admin: 09/10/23 09:50 Dose: 40 mg Documented By: RENAE Dextrose (Dextrose 50 % 25 Gm/50 Ml Syringe) 25 gm IVPUSH Q15M PRN; Protocol PRN Reason: per Hypoglycemia Standing Ord. Escitalopram Oxalate (Escitalopram Oxalate 10 Mg Tablet) 10 mg PO DAILY [facility] Last Admin: 09/10/23 09:50 Dose: 10 mg Documented By: RENAE Finasteride (Finasteride 5 Mg Tablet) 5 mg PO DAILY [facility] Last Admin: 09/10/23 09:50 Dose: 5 mg Documented By: RENAE Glucose (Glucose Gel 15 Gm Gel..Gram.) 15 gm PO Q15M PRN; Protocol PRN Reason: per Hypoglycemia Standing Ord. Heparin Sodium (Porcine) (Heparin Sodium,Porcine 5,000 Unit/Ml Vial) 5,000 unit SUBCUT Q12H [facility] Last Admin: 09/10/23 01:22 Dose: 5,000 unit Documented By: HO.DIAZDEM Remdesivir 200 mg/ Sodium (Chloride) 210 mls @ 105 mls/hr IV ONCE ONE Stop: 09/10/23 11:59 Last Admin: 09/10/23 09:50 Dose: 105 mls/hr Documented By: RENAE Remdesivir 100 mg/ Sodium (Chloride) 230 mls @ 115 mls/hr IV Q24H [facility] Stop: 09/12/23 11:59 Insulin Glargine (Insulin Glargine,Hum.Rec.Anlog 100 Unit/Ml 10 Ml Vial) 25 unit SUBCUT BEDTIME [facility] Last Admin: 09/09/23 21:03 Dose: 25 unit Documented By: REMY Insulin Human Lispro (Insulin Lispro 100 Unit/Ml 3 Ml Vial) 0 unit SUBCUT QIDACHS [facility]; Protocol Last Admin: 09/10/23 08:09 Dose: Not Given Documented By: RENAE Non-Admin Reason: doesnt need Losartan Potassium (Losartan Potassium 25 Mg Tablet) 25 mg PO DAILY [facility]; Protocol Last Admin: 09/10/23 09:50 Dose: 25 mg Documented By: RENAE Metformin HCl (Metformin Hcl 1,000 Mg Tablet) 1,000 mg PO BIDWM [facility] Last Admin: 09/10/23 09:50 Dose: 1,000 mg Documented By: RENAE Ondansetron HCl (Ondansetron Hcl 4 Mg/2 Ml Vial) 4 mg IVPUSH Q8H PRN PRN Reason: Nausea and Vomiting Quetiapine Fumarate (Quetiapine Fumarate 50 Mg Tablet) 50 mg PO BEDTIME [facility] Last Admin: 09/09/23 21:03 Dose: 50 mg Documented By: REMY Labs 09/09/23 16:34 09/09/23 16:34 Labs: Laboratory Results - last 24 hr 09/09/23 09/09/23 09/09/23 11:11 15:55 16:23 MCV MCH MCHC RDW Plt Count MPV Absolute Nucleated RBC Nucleated RBC % (auto) Anion Gap Estim Creat Clear Calc Estimated GFR POC Glucose 220 H 186 H Random Glucose Lactic Acid Lactic Acid F/U @ 2Hr Lactic Acid F/U @ 4Hr Calcium C-Reactive Protein Procalcitonin Influenza Type A (PCR) NEGATIVE Influenza Type B (PCR) NEGATIVE RSV RNA Qual (PCR) NEGATIVE SARS-CoV-2 RNA (RT-PCR) POSITIVE A 09/09/23 09/09/23 09/09/23 16:34 19:49 19:59 MCV 84.9 MCH 29.9 MCHC 35.2 RDW 13.1 Plt Count 284 D MPV 9.4 Absolute Nucleated RBC 0.000 Nucleated RBC % (auto) 0.0 Anion Gap 15 Estim Creat Clear Calc 77.0 Estimated GFR > 60 POC Glucose 142 H Random Glucose 184 H Lactic Acid 2.6 H* Lactic Acid F/U @ 2Hr 2.8 H* Lactic Acid F/U @ 4Hr Calcium 9.9 D C-Reactive Protein 0.46 Procalcitonin 0.06 Influenza Type A (PCR) Influenza Type B (PCR) RSV RNA Qual (PCR) SARS-CoV-2 RNA (RT-PCR) 09/09/23 09/10/23 22:21 07:31 MCV MCH MCHC RDW Plt Count MPV Absolute Nucleated RBC Nucleated RBC % (auto) Anion Gap Estim Creat Clear Calc Estimated GFR POC Glucose 99 Random Glucose Lactic Acid Lactic Acid F/U @ 2Hr Lactic Acid F/U @ 4Hr 2.5 H* Calcium C-Reactive Protein Procalcitonin Influenza Type A (PCR) Influenza Type B (PCR) RSV RNA Qual (PCR) SARS-CoV-2 RNA (RT-PCR) Impressions Chest X-Ray 09/09/23 17:28 IMPRESSION: No acute cardiopulmonary findings. Assessment and Plan (1) Major neurocognitive disorder due to another medical condition: Status: [facility] d30 73yo M who originally presented to ED 07/26/23 with suicidal ideation that he subsequently denied. Found to have no competency so guardianship is being pursued febrile 09/09/23 and tested positive for Covid-19 Covid-19 infection - isolation - trend CRP - remdesivir 09/10-09/12 given high-risk for severe disease dementia - escitalopram, quetiapine HTN - losartan DM2 - MTF, glargine HLD - statin prostatism - finasteride VTE ppx - UFH dispo - LTC Total time managing care of this patient today: 35 minutes. Quality Stroke Does the patient have a stroke diagnosis?: No VTE Prior VTE?: No VTE Risk Level:: Medical - moderate - high VTE Device Contraindication: Treatment Not Tolerated VTE Drug Contraindication: N/A - Med Ordered
[2023-09-10 11:16] VITALS: BP 102/61; PULSE 82; RESP 20; TEMP 37.2; O2SAT 96
[2023-09-10 11:17] LABS: Glucose, Whole Blood 206 mg/dL (60-115)
[2023-09-10] MEDS: Insulin Lispro 100 UNIT/ML 3 ML VIAL SUBCUT (12:22)
--- NOTE | 2023-09-10 13:31 | MHC.CM.PN ---
Pt being treated for Covid, new guardian in place. DC plan is LTC in SNF due to pt. has Dementia, CM awaiting information from new guardian on pt.'s finances and insurance info to them refer to LTC.
[2023-09-10 15:26] VITALS: BP 116/60; PULSE 90; RESP 20; TEMP 37.1; O2SAT 95
[2023-09-10 16:29] LABS: Glucose, Whole Blood 131 mg/dL (60-115)
[2023-09-10 19:16] VITALS: BP 111/56; PULSE 88; RESP 20; TEMP 38.3; O2SAT 95
[2023-09-10 21:11] LABS: Glucose, Whole Blood 148 mg/dL (60-115)
[2023-09-10] MEDS: QUEtiapine Fumarate 50 MG TABLET PO (21:15)
[2023-09-10] MEDS: Insulin Glargine,Hum.rec.anlog 100 UNIT/ML 10 ML VIAL 25 UNIT SUBCUT (21:16)
[2023-09-11 03:16] VITALS: BP 106/58; PULSE 79; RESP 18; TEMP 36.8; O2SAT 96
[2023-09-11 07:09] LABS: Hematocrit 38.7 % (42.0-52.0); Hemoglobin 13.2 g/dl (14.0-18.0); Mean Corpuscular HGB Conc 34.1 g/dl (31.0-36.0); Mean Corpuscular Hemoglobin 29.7 pg (27.0-33.0); Mean Platelet Volume 9.2 fL (9.4-12.4); Platelet Count 196 X10*3/uL (160-400); Red Blood Count 4.45 X10*6/uL (4.60-5.80); Red Cell Distribution Width 13.3 % (11.0-16.0); White Blood Count 3.8 X10*3/uL (4.8-10.8)
[2023-09-11 07:13] VITALS: BP 102/60; PULSE 75; RESP 20; TEMP 36.8; O2SAT 96
[2023-09-11 07:22] LABS: Glucose, Whole Blood 134 mg/dL (60-115)
[2023-09-11 07:31] LABS: Anion Gap 13 (12-20); Blood Urea Nitrogen 19 mg/dL (9-16); C Reactive Protein 1.33 mg/dL (< or = 0.50); Calcium 9.3 mg/dL (8.4-10.2); Carbon Dioxide 25 mmol/L (22-29); Chloride 100 mmol/L (96-108); Creatinine Clr Calc Pharmacy 80.5; Estimated Glomerular Filt Rate > 60; Glucose Random 129 mg/dL (60-115); Potassium 4.2 mmol/L (3.3-5.1); Sodium 134 mmol/L (135-145)
[2023-09-11] MEDS: Losartan Potassium 25 MG TABLET PO (08:11)
[2023-09-11] MEDS: Escitalopram Oxalate 10 MG TABLET PO (08:12)
[2023-09-11] MEDS: metFORMIN HCl 1,000 MG TABLET 1000 MG PO ×2 (08:12→16:56)
[2023-09-11] MEDS: Atorvastatin Calcium 40 MG TABLET PO (08:12)
[2023-09-11] MEDS: Finasteride 5 MG TABLET PO (08:12)
[2023-09-11] MEDS: Remdesivir 100 MG in 0.9 % Sodium Chloride 230 ML 115 MG IV (11:05)
[2023-09-11 11:10] LABS: Glucose, Whole Blood 253 mg/dL (60-115)
[2023-09-11] MEDS: Heparin Sodium,Porcine 5,000 UNIT/ML VIAL 5000 UNIT SUBCUT (11:14)
[2023-09-11] MEDS: Insulin Lispro 100 UNIT/ML 3 ML VIAL SUBCUT (11:37)
--- NOTE | 2023-09-11 12:45 | P.PNIM_ITS ---
Subjective Subjective Date of Service: 09/11/23 Interval History: febrile to 100.9 last night at 19:16 denies cough or dyspnea but unreliable historian Review of Systems Review of Systems: Yes all other systems are reviewed and are negative Physical Exam 2 Vital Signs: Vital Signs: Last Vital Signs Temp 98.2 F 09/11/23 07:13 Pulse 75 09/11/23 07:13 Resp 20 09/11/23 07:13 BP 102/60 09/11/23 07:13 Pulse Ox 96 09/11/23 07:13 O2 Del Method Room Air 09/11/23 07:13 BMI result Body Mass Index 24.0 Gen: in no acute distress HEENT: sclera anicteric, moist mucus membranes Neck: supple Lungs: clear to auscultation bilaterally Heart: regular rate and rhythm, no murmurs Abd: soft, non-tender, non-distended Ext: no edema Skin: warm/well-perfused Neuro: alert, disoriented, moving all extremities Psych: impaired insight Objective Data Active Medications Acetaminophen (Acetaminophen 325 Mg Tablet) 650 mg PO Q6H PRN PRN Reason: Pain, Mild (Pain Scale 1-3) Last Admin: 09/10/23 21:15 Dose: 650 mg Documented By: ALANIS Atorvastatin Calcium (Atorvastatin Calcium 40 Mg Tablet) 40 mg PO DAILY [facility] Last Admin: 09/11/23 08:12 Dose: 40 mg Documented By: ALIE Dextrose (Dextrose 50 % 25 Gm/50 Ml Syringe) 25 gm IVPUSH Q15M PRN; Protocol PRN Reason: per Hypoglycemia Standing Ord. Escitalopram Oxalate (Escitalopram Oxalate 10 Mg Tablet) 10 mg PO DAILY [facility] Last Admin: 09/11/23 08:12 Dose: 10 mg Documented By: ALIE Finasteride (Finasteride 5 Mg Tablet) 5 mg PO DAILY [facility] Last Admin: 09/11/23 08:12 Dose: 5 mg Documented By: ALIE Glucose (Glucose Gel 15 Gm Gel..Gram.) 15 gm PO Q15M PRN; Protocol PRN Reason: per Hypoglycemia Standing Ord. Heparin Sodium (Porcine) (Heparin Sodium,Porcine 5,000 Unit/Ml Vial) 5,000 unit SUBCUT Q12H [facility] Last Admin: 09/11/23 11:14 Dose: 5,000 unit Documented By: ALIE Remdesivir 100 mg/ Sodium (Chloride) 230 mls @ 115 mls/hr IV Q24H [facility] Stop: 09/12/23 11:59 Last Admin: 09/11/23 11:05 Dose: 115 mls/hr Documented By: ALIE Insulin Glargine (Insulin Glargine,Hum.Rec.Anlog 100 Unit/Ml 10 Ml Vial) 25 unit SUBCUT BEDTIME [facility] Last Admin: 09/10/23 21:16 Dose: 25 unit Documented By: ALANIS Insulin Human Lispro (Insulin Lispro 100 Unit/Ml 3 Ml Vial) 0 unit SUBCUT QIDACHS [facility]; Protocol Last Admin: 09/11/23 11:37 Dose: 6 unit Documented By: ALIE Losartan Potassium (Losartan Potassium 25 Mg Tablet) 25 mg PO DAILY [facility]; Protocol Last Admin: 09/11/23 08:11 Dose: 25 mg Documented By: ALIE Metformin HCl (Metformin Hcl 1,000 Mg Tablet) 1,000 mg PO BIDWM [facility] Last Admin: 09/11/23 08:12 Dose: 1,000 mg Documented By: ALIE Ondansetron HCl (Ondansetron Hcl 4 Mg/2 Ml Vial) 4 mg IVPUSH Q8H PRN PRN Reason: Nausea and Vomiting Quetiapine Fumarate (Quetiapine Fumarate 50 Mg Tablet) 50 mg PO BEDTIME [facility] Last Admin: 09/10/23 21:15 Dose: 50 mg Documented By: ALANIS Labs 09/11/23 06:38 09/11/23 06:38 Labs: Laboratory Results - last 24 hr 09/10/23 09/10/23 09/11/23 16:24 20:58 06:38 MCV 87.0 MCH 29.7 MCHC 34.1 RDW 13.3 Plt Count 196 D MPV 9.2 L Absolute Nucleated RBC 0.000 Nucleated RBC % (auto) 0.0 Anion Gap 13 Estim Creat Clear Calc 80.5 Estimated GFR > 60 POC Glucose 131 H 148 H Random Glucose 129 H Calcium 9.3 D C-Reactive Protein 1.33 H 09/11/23 09/11/23 07:16 11:06 MCV MCH MCHC RDW Plt Count MPV Absolute Nucleated RBC Nucleated RBC % (auto) Anion Gap Estim Creat Clear Calc Estimated GFR POC Glucose 134 H 253 H Random Glucose Calcium C-Reactive Protein Microbiology Microbiology Results: Microbiology 09/09/23 16:34 Blood Culture - Preliminary Blood - Venous No growth after 24 hours. 09/09/23 16:34 Blood Culture - Preliminary Blood - Venous No growth after 24 hours. Assessment and Plan (1) Major neurocognitive disorder due to another medical condition: Status: [facility] d31 73yo M who originally presented to ED 07/26/23 with suicidal ideation that he subsequently denied. Found to have no competency so guardianship is being pursued febrile 09/09/23 and tested positive for Covid-19 Covid-19 infection - isolation - trend CRP - remdesivir 09/10-09/14 given high-risk for severe disease dementia - escitalopram, quetiapine HTN - losartan DM2 - MTF, glargine HLD - statin prostatism - finasteride VTE ppx - UFH dispo - LTC In my clinical judgment, the patient requires continued inpatient hospitalization for the following reasons: placement Total time managing care of this patient today: 35 minutes. Quality Stroke Does the patient have a stroke diagnosis?: No VTE Prior VTE?: No VTE Risk Level:: Medical - moderate - high VTE Device Contraindication: Treatment Not Tolerated VTE Drug Contraindication: N/A - Med Ordered
[2023-09-11 16:00] VITALS: BP 103/63; PULSE 75; RESP 17; TEMP 36.7; O2SAT 97
[2023-09-11 16:51] LABS: Glucose, Whole Blood 147 mg/dL (60-115)
[2023-09-11 20:00] VITALS: BP 119/61; PULSE 88; RESP 20; TEMP 38.2; O2SAT 96
[2023-09-11] MEDS: Acetaminophen 325 MG TABLET 650 MG PO (21:15)
[2023-09-11] MEDS: Insulin Glargine,Hum.rec.anlog 100 UNIT/ML 10 ML VIAL 25 UNIT SUBCUT (21:15)
[2023-09-11] MEDS: QUEtiapine Fumarate 50 MG TABLET PO (21:15)
[2023-09-11 21:55] LABS: Glucose, Whole Blood 156 mg/dL (60-115)
[2023-09-11 23:12] VITALS: BP 120/59; PULSE 89; RESP 18; TEMP 37.5; O2SAT 95
[2023-09-12] MEDS: Heparin Sodium,Porcine 5,000 UNIT/ML VIAL 5000 UNIT SUBCUT ×3 (00:01→22:55)
[2023-09-12 03:24] VITALS: BP 136/66; PULSE 78; RESP 18; TEMP 36.6; O2SAT 97
[2023-09-12 07:55] VITALS: BP 114/57; PULSE 80; RESP 16; TEMP 37.1; O2SAT 95
[2023-09-12 08:17] LABS: Glucose, Whole Blood 128 mg/dL (60-115)
[2023-09-12] MEDS: Escitalopram Oxalate 10 MG TABLET PO (08:28)
[2023-09-12] MEDS: Losartan Potassium 25 MG TABLET PO (08:28)
[2023-09-12] MEDS: Atorvastatin Calcium 40 MG TABLET PO (08:28)
[2023-09-12] MEDS: metFORMIN HCl 1,000 MG TABLET 1000 MG PO ×2 (08:28→17:07)
[2023-09-12] MEDS: Finasteride 5 MG TABLET PO (08:28)
[2023-09-12 11:18] VITALS: BP 108/49; PULSE 78; RESP 16; TEMP 36.8; O2SAT 96
[2023-09-12] MEDS: Remdesivir 100 MG in 0.9 % Sodium Chloride 230 ML 115 MG IV (11:26)
[2023-09-12] MEDS: Insulin Lispro 100 UNIT/ML 3 ML VIAL SUBCUT ×2 (11:26→22:54)
[2023-09-12 11:47] LABS: Glucose, Whole Blood 224 mg/dL (60-115)
--- NOTE | 2023-09-12 13:38 | HO.PM.IMPN ---
Subjective Subjective Date of Service: 09/12/23 Interval History: febrile to 100.7 @ 20:00 overnight denies cough or dyspnea but poor historian Review of Systems Review of Systems: Yes Unobtainable due to mental status Physical Exam Vital Signs: Vital Signs: Last Vital Signs Temp 98.2 F 09/12/23 11:18 Pulse 78 09/12/23 11:18 Resp 16 09/12/23 11:18 BP 108/49 L 09/12/23 11:18 Pulse Ox 96 09/12/23 11:18 O2 Del Method Room Air 09/12/23 11:18 BMI result Body Mass Index 24.0 Gen: in no acute distress HEENT: sclera anicteric, moist mucus membranes Neck: supple Lungs: clear to auscultation bilaterally Heart: regular rate and rhythm, no murmurs Abd: soft, non-tender, non-distended Ext: no edema Skin: warm/well-perfused Neuro: alert, disoriented, moving all extremities Psych: impaired insight Objective Data Active Medications Acetaminophen (Acetaminophen 325 Mg Tablet) 650 mg PO Q6H PRN PRN Reason: Pain, Mild (Pain Scale 1-3) Last Admin: 09/11/23 21:15 Dose: 650 mg Documented By: DENISSE Atorvastatin Calcium (Atorvastatin Calcium 40 Mg Tablet) 40 mg PO DAILY [facility] Last Admin: 09/12/23 08:28 Dose: 40 mg Documented By: JUAN J Dextrose (Dextrose 50 % 25 Gm/50 Ml Syringe) 25 gm IVPUSH Q15M PRN; Protocol PRN Reason: per Hypoglycemia Standing Ord. Escitalopram Oxalate (Escitalopram Oxalate 10 Mg Tablet) 10 mg PO DAILY [facility] Last Admin: 09/12/23 08:28 Dose: 10 mg Documented By: JUAN J Finasteride (Finasteride 5 Mg Tablet) 5 mg PO DAILY [facility] Last Admin: 09/12/23 08:28 Dose: 5 mg Documented By: JUAN J Glucose (Glucose Gel 15 Gm Gel..Gram.) 15 gm PO Q15M PRN; Protocol PRN Reason: per Hypoglycemia Standing Ord. Heparin Sodium (Porcine) (Heparin Sodium,Porcine 5,000 Unit/Ml Vial) 5,000 unit SUBCUT Q12H [facility] Last Admin: 09/12/23 11:26 Dose: 5,000 unit Documented By: JUAN J Remdesivir 100 mg/ Sodium (Chloride) 230 mls @ 115 mls/hr IV Q24H [facility] Stop: 09/14/23 11:59 Last Admin: 09/12/23 11:26 Dose: 115 mls/hr Documented By: JUAN J Insulin Glargine (Insulin Glargine,Hum.Rec.Anlog 100 Unit/Ml 10 Ml Vial) 25 unit SUBCUT BEDTIME [facility] Last Admin: 09/11/23 21:15 Dose: 25 unit Documented By: DENISSE Insulin Human Lispro (Insulin Lispro 100 Unit/Ml 3 Ml Vial) 0 unit SUBCUT QIDACHS [facility]; Protocol Last Admin: 09/12/23 11:26 Dose: 4 unit Documented By: JUAN J Losartan Potassium (Losartan Potassium 25 Mg Tablet) 25 mg PO DAILY [facility]; Protocol Last Admin: 09/12/23 08:28 Dose: 25 mg Documented By: JUAN J Metformin HCl (Metformin Hcl 1,000 Mg Tablet) 1,000 mg PO BIDWM [facility] Last Admin: 09/12/23 08:28 Dose: 1,000 mg Documented By: JUAN J Ondansetron HCl (Ondansetron Hcl 4 Mg/2 Ml Vial) 4 mg IVPUSH Q8H PRN PRN Reason: Nausea and Vomiting Quetiapine Fumarate (Quetiapine Fumarate 50 Mg Tablet) 50 mg PO BEDTIME [facility] Last Admin: 09/11/23 21:15 Dose: 50 mg Documented By: DENISSE Labs 09/11/23 06:38 09/11/23 06:38 Labs: Laboratory Results - last 24 hr 09/11/23 09/11/23 09/12/23 15:51 21:12 08:01 POC Glucose 147 H 156 H 128 H 09/12/23 11:14 POC Glucose 224 H Microbiology Microbiology Results: Microbiology 09/09/23 16:34 Blood Culture - Preliminary Blood - Venous No growth after 48 hours. 09/09/23 16:34 Blood Culture - Preliminary Blood - Venous No growth after 48 hours. Assessment and Plan (1) Major neurocognitive disorder due to another medical condition: Status: [facility] d32 73yo M who originally presented to ED 07/26/23 with suicidal ideation that he subsequently denied. Found to have no competency so guardianship is being pursued febrile 09/09/23 and tested positive for Covid-19 Covid-19 infection - isolation - trend CRP - remdesivir 09/10-09/14 given high-risk for severe disease dementia - escitalopram, quetiapine HTN - losartan DM2 - MTF, glargine HLD - statin prostatism - finasteride VTE ppx - UFH dispo - LTC In my clinical judgment, the patient requires continued inpatient hospitalization for the following reasons: placement Total time managing care of this patient today: 35 minutes. Quality Stroke Does the patient have a stroke diagnosis?: No VTE Prior VTE?: No VTE Risk Level:: Medical - moderate - high VTE Device Contraindication: Treatment Not Tolerated VTE Drug Contraindication: N/A - Med Ordered
[2023-09-12 15:13] VITALS: BP 112/60; PULSE 89; RESP 17; TEMP 37.4; O2SAT 94
--- NOTE | 2023-09-12 16:12 | MHC.CM.PN ---
EMR reviewed and per MD rounds, pt is medically cleared, but not able to D/C due to awaiting info from guardian regarding LTC payer source. CM will continue to follow.
[2023-09-12 17:00] LABS: Glucose, Whole Blood 134 mg/dL (60-115)
[2023-09-12 19:26] VITALS: BP 118/61; PULSE 93; RESP 18; TEMP 36.3; O2SAT 96
[2023-09-12 20:37] LABS: Glucose, Whole Blood 178 mg/dL (60-115)
[2023-09-12] MEDS: QUEtiapine Fumarate 50 MG TABLET PO (22:55)
[2023-09-12] MEDS: Insulin Glargine,Hum.rec.anlog 100 UNIT/ML 10 ML VIAL 25 UNIT SUBCUT (22:55)
[2023-09-12 23:08] VITALS: BP 114/61; PULSE 89; RESP 16; TEMP 37.1; O2SAT 94
[2023-09-13 03:44] VITALS: BP 120/64; PULSE 85; RESP 18; TEMP 37; O2SAT 96
[2023-09-13 07:36] VITALS: BP 113/68; PULSE 78; RESP 16; TEMP 36.6; O2SAT 94
[2023-09-13 08:25] LABS: Hematocrit 40.1 % (42.0-52.0); Hemoglobin 13.9 g/dl (14.0-18.0); Mean Corpuscular HGB Conc 34.7 g/dl (31.0-36.0); Mean Corpuscular Hemoglobin 29.8 pg (27.0-33.0); Mean Corpuscular Volume 85.9 fL (80.0-98.0); Mean Platelet Volume 9.6 fL (9.4-12.4); Platelet Count 207 X10*3/uL (160-400); Red Blood Count 4.67 X10*6/uL (4.60-5.80); Red Cell Distribution Width 13.3 % (11.0-16.0); White Blood Count 4.7 X10*3/uL (4.8-10.8)
[2023-09-13 08:29] LABS: Glucose, Whole Blood 112 mg/dL (60-115)
[2023-09-13 08:50] LABS: Anion Gap 13 (12-20); Blood Urea Nitrogen 16 mg/dL (9-16); Carbon Dioxide 26 mmol/L (22-29); Chloride 97 mmol/L (96-108); Creatinine Clr Calc Pharmacy 87.5; Estimated Glomerular Filt Rate > 60; Glucose Random 89 mg/dL (60-115); Potassium 3.7 mmol/L (3.3-5.1); Sodium 132 mmol/L (135-145)
[2023-09-13] MEDS: Losartan Potassium 25 MG TABLET PO (09:07)
[2023-09-13] MEDS: metFORMIN HCl 1,000 MG TABLET 1000 MG PO ×2 (09:08→16:53)
[2023-09-13] MEDS: Atorvastatin Calcium 40 MG TABLET PO (09:08)
[2023-09-13] MEDS: Finasteride 5 MG TABLET PO (09:08)
[2023-09-13] MEDS: Escitalopram Oxalate 10 MG TABLET PO (09:08)
[2023-09-13] MEDS: Remdesivir 100 MG in 0.9 % Sodium Chloride 230 ML 115 MG IV (10:57)
[2023-09-13 11:19] VITALS: BP 111/61; PULSE 77; RESP 16; TEMP 36.3; O2SAT 96
[2023-09-13 12:02] LABS: Glucose, Whole Blood 187 mg/dL (60-115)
[2023-09-13] MEDS: Heparin Sodium,Porcine 5,000 UNIT/ML VIAL 5000 UNIT SUBCUT ×2 (12:47→22:48)
[2023-09-13] MEDS: Insulin Lispro 100 UNIT/ML 3 ML VIAL SUBCUT ×3 (12:47→22:49)
--- NOTE | 2023-09-13 13:12 | P.PNIM_ITS ---
Subjective Subjective Date of Service: 09/13/23 Interval History: Fever has resolved. Denies cough. Review of Systems Review of Systems: Yes all other systems are reviewed and are negative Physical Exam 2 Vital Signs: Vital Signs: Last Vital Signs Temp 97.4 F 09/13/23 11:19 Pulse 77 09/13/23 11:19 Resp 16 09/13/23 11:19 BP 111/61 09/13/23 11:19 Pulse Ox 96 09/13/23 11:19 O2 Del Method Room Air 09/13/23 11:19 BMI result Body Mass Index 24.0 Gen: in no acute distress HEENT: sclera anicteric, moist mucus membranes Neck: supple Lungs: clear to auscultation bilaterally Heart: regular rate and rhythm, no murmurs Abd: soft, non-tender, non-distended Ext: no edema Skin: warm/well-perfused Neuro: alert, disoriented, moving all extremities Psych: impaired insight Objective Data Active Medications Acetaminophen (Acetaminophen 325 Mg Tablet) 650 mg PO Q6H PRN PRN Reason: Pain, Mild (Pain Scale 1-3) Last Admin: 09/11/23 21:15 Dose: 650 mg Documented By: DENISSE Atorvastatin Calcium (Atorvastatin Calcium 40 Mg Tablet) 40 mg PO DAILY [facility] Last Admin: 09/13/23 09:08 Dose: 40 mg Documented By: TAI Dextrose (Dextrose 50 % 25 Gm/50 Ml Syringe) 25 gm IVPUSH Q15M PRN; Protocol PRN Reason: per Hypoglycemia Standing Ord. Escitalopram Oxalate (Escitalopram Oxalate 10 Mg Tablet) 10 mg PO DAILY [facility] Last Admin: 09/13/23 09:08 Dose: 10 mg Documented By: TAI Finasteride (Finasteride 5 Mg Tablet) 5 mg PO DAILY [facility] Last Admin: 09/13/23 09:08 Dose: 5 mg Documented By: TAI Glucose (Glucose Gel 15 Gm Gel..Gram.) 15 gm PO Q15M PRN; Protocol PRN Reason: per Hypoglycemia Standing Ord. Heparin Sodium (Porcine) (Heparin Sodium,Porcine 5,000 Unit/Ml Vial) 5,000 unit SUBCUT Q12H [facility] Last Admin: 09/13/23 12:47 Dose: 5,000 unit Documented By: TAI Remdesivir 100 mg/ Sodium (Chloride) 230 mls @ 115 mls/hr IV Q24H [facility] Stop: 09/14/23 11:59 Last Admin: 09/13/23 10:57 Dose: 115 mls/hr Documented By: TAI Insulin Glargine (Insulin Glargine,Hum.Rec.Anlog 100 Unit/Ml 10 Ml Vial) 25 unit SUBCUT BEDTIME [facility] Last Admin: 09/12/23 22:55 Dose: 25 unit Documented By: JENNIFFER Insulin Human Lispro (Insulin Lispro 100 Unit/Ml 3 Ml Vial) 0 unit SUBCUT QIDACHS [facility]; Protocol Last Admin: 09/13/23 12:47 Dose: 2 unit Documented By: TAI Losartan Potassium (Losartan Potassium 25 Mg Tablet) 25 mg PO DAILY [facility]; Protocol Last Admin: 09/13/23 09:07 Dose: 25 mg Documented By: TAI Metformin HCl (Metformin Hcl 1,000 Mg Tablet) 1,000 mg PO BIDWM [facility] Last Admin: 09/13/23 09:08 Dose: 1,000 mg Documented By: TAI Ondansetron HCl (Ondansetron Hcl 4 Mg/2 Ml Vial) 4 mg IVPUSH Q8H PRN PRN Reason: Nausea and Vomiting Quetiapine Fumarate (Quetiapine Fumarate 50 Mg Tablet) 50 mg PO BEDTIME [facility] Last Admin: 09/12/23 22:55 Dose: 50 mg Documented By: JENNIFFER Labs 09/13/23 06:56 09/13/23 06:56 Labs: Laboratory Results - last 24 hr 09/12/23 09/12/23 09/13/23 15:10 19:34 06:56 MCV 85.9 MCH 29.8 MCHC 34.7 RDW 13.3 Plt Count 207 MPV 9.6 Absolute Nucleated RBC 0.000 Nucleated RBC % (auto) 0.0 Anion Gap 13 Estim Creat Clear Calc 87.5 Estimated GFR > 60 POC Glucose 134 H 178 H Random Glucose 89 Calcium 9.0 C-Reactive Protein 0.50 09/13/23 09/13/23 08:12 11:58 MCV MCH MCHC RDW Plt Count MPV Absolute Nucleated RBC Nucleated RBC % (auto) Anion Gap Estim Creat Clear Calc Estimated GFR POC Glucose 112 187 H Random Glucose Calcium C-Reactive Protein Assessment and Plan (1) Major neurocognitive disorder due to another medical condition: Status: Acute [facility] 73yo M who originally presented to ED 07/26/23 with suicidal ideation that he subsequently denied. Found to have no competency so guardianship is being pursued febrile 09/09/23 and tested positive for Covid-19 Covid-19 infection - isolation 09/09-09/19 - CRP low - remdesivir 09/10-09/14 given high-risk for severe disease dementia - escitalopram, quetiapine HTN - losartan DM2 - MTF, glargine HLD - statin prostatism - finasteride VTE ppx - UFH dispo - LTC In my clinical judgment, the patient requires continued inpatient hospitalization for the following reasons: placement Total time managing care of this patient today: 35 minutes. Quality Stroke Does the patient have a stroke diagnosis?: No VTE Prior VTE?: No VTE Risk Level:: Medical - moderate - high VTE Device Contraindication: Treatment Not Tolerated VTE Drug Contraindication: N/A - Med Ordered
[2023-09-13 15:14] VITALS: BP 105/59; PULSE 79; RESP 16; TEMP 36.5; O2SAT 96
[2023-09-13 16:42] LABS: Glucose, Whole Blood 211 mg/dL (60-115)
[2023-09-13 19:24] VITALS: BP 112/56; PULSE 79; RESP 20; TEMP 36.8; O2SAT 94
[2023-09-13 20:32] LABS: Glucose, Whole Blood 171 mg/dL (60-115)
[2023-09-13] MEDS: QUEtiapine Fumarate 50 MG TABLET PO (22:48)
[2023-09-13] MEDS: Insulin Glargine,Hum.rec.anlog 100 UNIT/ML 10 ML VIAL 25 UNIT SUBCUT (22:49)
[2023-09-14] VITALS (7 sets, daily range): BP systolic 106–125; BP diastolic 56–65; PULSE 76–86; RESP 17–20; TEMP 36.2–37.7; O2SAT 94–97
[2023-09-14 06:17] LABS: Appearance Urine Clear; Color Urine Yellow; Glucose Urine UA Negative (Negative); Leukocyte Esterase Urine Negative (Negative); Nitrite Urine Negative (Negative); PH 5.5 (5.0-9.0); Urine Blood Negative (Negative); Urine Ketones Negative (Negative); Urine Protein Negative (Neg-Trace)
[2023-09-14 07:38] LABS: Glucose, Whole Blood 85 mg/dL (60-115)
[2023-09-14] MEDS: metFORMIN HCl 1,000 MG TABLET 1000 MG PO ×2 (09:11→16:57)
[2023-09-14] MEDS: Atorvastatin Calcium 40 MG TABLET PO (09:11)
[2023-09-14] MEDS: Finasteride 5 MG TABLET PO (09:11)
[2023-09-14] MEDS: Losartan Potassium 25 MG TABLET PO (09:11)
[2023-09-14] MEDS: Escitalopram Oxalate 10 MG TABLET PO (09:11)
[2023-09-14 11:21] LABS: Glucose, Whole Blood 143 mg/dL (60-115)
[2023-09-14] MEDS: Heparin Sodium,Porcine 5,000 UNIT/ML VIAL 5000 UNIT SUBCUT (11:48)
[2023-09-14] MEDS: Remdesivir 100 MG in 0.9 % Sodium Chloride 230 ML 115 MG IV (11:48)
--- NOTE | 2023-09-14 12:37 | P.PNIM_ITS ---
Subjective Subjective Date of Service: 09/14/23 Interval History: Follow-up for placement, complaining of dry cough, denies shortness of breath, no fevers no chills, no overnight events. Review of Systems All other system reviewed and negative Physical Exam 2 Vital Signs: Vital Signs: Last Vital Signs Temp 98.0 F 09/14/23 11:14 Pulse 86 09/14/23 11:14 Resp 18 09/14/23 11:14 BP 115/59 L 09/14/23 11:14 Pulse Ox 95 09/14/23 11:14 O2 Del Method Room Air 09/14/23 11:14 BMI result Body Mass Index 24.0 Const: Other: Gen: in no acute distress, legally blind Neck: supple Lungs: clear to auscultation bilaterally Heart: regular rate and rhythm, no murmurs Abd: soft, non-tender, non-distended, bowel sounds audible Ext: no edema Skin: warm/well-perfused Neuro: alert, disoriented, moving all extremities Psych: impaired insight Objective Data Active Medications Acetaminophen (Acetaminophen 325 Mg Tablet) 650 mg PO Q6H PRN PRN Reason: Pain, Mild (Pain Scale 1-3) Last Admin: 09/11/23 21:15 Dose: 650 mg Documented By: DENISSE Atorvastatin Calcium (Atorvastatin Calcium 40 Mg Tablet) 40 mg PO DAILY [facility] Last Admin: 09/14/23 09:11 Dose: 40 mg Documented By: TAI Dextrose (Dextrose 50 % 25 Gm/50 Ml Syringe) 25 gm IVPUSH Q15M PRN; Protocol PRN Reason: per Hypoglycemia Standing Ord. Escitalopram Oxalate (Escitalopram Oxalate 10 Mg Tablet) 10 mg PO DAILY [facility] Last Admin: 09/14/23 09:11 Dose: 10 mg Documented By: TAI Finasteride (Finasteride 5 Mg Tablet) 5 mg PO DAILY [facility] Last Admin: 09/14/23 09:11 Dose: 5 mg Documented By: TAI Glucose (Glucose Gel 15 Gm Gel..Gram.) 15 gm PO Q15M PRN; Protocol PRN Reason: per Hypoglycemia Standing Ord. Heparin Sodium (Porcine) (Heparin Sodium,Porcine 5,000 Unit/Ml Vial) 5,000 unit SUBCUT Q12H [facility] Last Admin: 09/14/23 11:48 Dose: 5,000 unit Documented By: TAI Insulin Glargine (Insulin Glargine,Hum.Rec.Anlog 100 Unit/Ml 10 Ml Vial) 25 unit SUBCUT BEDTIME [facility] Last Admin: 09/13/23 22:49 Dose: 25 unit Documented By: JENNIFFER Insulin Human Lispro (Insulin Lispro 100 Unit/Ml 3 Ml Vial) 0 unit SUBCUT QIDACHS [facility]; Protocol Last Admin: 09/14/23 11:36 Dose: Not Given Documented By: TAI Non-Admin Reason: No Insulin Coverage Losartan Potassium (Losartan Potassium 25 Mg Tablet) 25 mg PO DAILY [facility]; Protocol Last Admin: 09/14/23 09:11 Dose: 25 mg Documented By: TAI Metformin HCl (Metformin Hcl 1,000 Mg Tablet) 1,000 mg PO BIDWM [facility] Last Admin: 09/14/23 09:11 Dose: 1,000 mg Documented By: TAI Ondansetron HCl (Ondansetron Hcl 4 Mg/2 Ml Vial) 4 mg IVPUSH Q8H PRN PRN Reason: Nausea and Vomiting Quetiapine Fumarate (Quetiapine Fumarate 50 Mg Tablet) 50 mg PO BEDTIME [facility] Last Admin: 09/13/23 22:48 Dose: 50 mg Documented By: JENNIFFER Labs 09/13/23 06:56 09/13/23 06:56 Labs: Laboratory Results - last 24 hr 09/13/23 09/13/23 09/14/23 16:27 20:28 06:00 POC Glucose 211 H 171 H Urine Color Yellow Urine Appearance Clear Urine pH 5.5 Ur Specific [place] 1.010 Urine Protein Negative Urine Glucose (UA) Negative Urine Ketones Negative Urine Blood Negative Urine Nitrite Negative Ur Leukocyte Esterase Negative 09/14/23 09/14/23 07:33 11:12 POC Glucose 85 143 H Urine Color Urine Appearance Urine pH Ur Specific [place] Urine Protein Urine Glucose (UA) Urine Ketones Urine Blood Urine Nitrite Ur Leukocyte Esterase Assessment and Plan (1) Major neurocognitive disorder due to another medical condition: Status: Acute [facility] d33 73yo M who originally presented to ED 07/26/23 with suicidal ideation that he subsequently denied. Found to have no competency so guardianship is being pursued febrile 09/09/23 and tested positive for Covid-19 Covid-19 infection -continue isolation 09/09-09/19 - on remdesivir 09/10-09/14 given high-risk for severe disease dementia unspecified -on escitalopram, quetiapine HTN - stable blood pressure on losartan DM2 -stable blood sugars at a.m., continue MTF, glargine and insulin sliding scale HLD - statin BPH - finasteride VTE ppx - UFH dispo - LTC In my clinical judgment, the patient requires continued inpatient hospitalization for the following reasons: placement Total time managing care of this patient today: 35 minutes. Quality Stroke Does the patient have a stroke diagnosis?: No VTE Prior VTE?: No VTE Risk Level:: Medical - moderate - high VTE Device Contraindication: Treatment Not Tolerated VTE Drug Contraindication: N/A - Med Ordered
[2023-09-14 16:22] LABS: Glucose, Whole Blood 135 mg/dL (60-115)
[2023-09-14 21:09] LABS: Glucose, Whole Blood 232 mg/dL (60-115)
[2023-09-14] MEDS: QUEtiapine Fumarate 50 MG TABLET PO (22:20)
[2023-09-14] MEDS: Insulin Glargine,Hum.rec.anlog 100 UNIT/ML 10 ML VIAL 25 UNIT SUBCUT (22:20)
[2023-09-14] MEDS: Insulin Lispro 100 UNIT/ML 3 ML VIAL SUBCUT (22:20)
[2023-09-15] VITALS (7 sets, daily range): BP systolic 107–160; BP diastolic 51–72; PULSE 78–99; RESP 16–20; TEMP 36.2–37.8; O2SAT 93–96
[2023-09-15] MEDS: Heparin Sodium,Porcine 5,000 UNIT/ML VIAL 5000 UNIT SUBCUT ×2 (00:44→11:48)
[2023-09-15 08:16] LABS: Glucose, Whole Blood 93 mg/dL (60-115)
[2023-09-15] MEDS: Escitalopram Oxalate 10 MG TABLET PO (09:14)
[2023-09-15] MEDS: Atorvastatin Calcium 40 MG TABLET PO (09:14)
[2023-09-15] MEDS: Losartan Potassium 25 MG TABLET PO (09:14)
[2023-09-15] MEDS: metFORMIN HCl 1,000 MG TABLET 1000 MG PO ×2 (09:14→17:35)
[2023-09-15] MEDS: Finasteride 5 MG TABLET PO (09:14)
[2023-09-15 11:27] LABS: Glucose, Whole Blood 150 mg/dL (60-115)
--- NOTE | 2023-09-15 11:44 | HO.PM.IMPN ---
Subjective Subjective Date of Service: 09/15/23 Interval History: Complaining of dry cough, no shortness of breath, no fevers, no chills, no other acute issues overnight. Review of Systems All other symptoms reviewed and negative. Physical Exam Vital Signs: Vital Signs: Last Vital Signs Temp 98.5 F 09/15/23 08:00 Pulse 91 09/15/23 08:00 Resp 16 09/15/23 08:00 BP 116/63 09/15/23 08:00 Pulse Ox 93 09/15/23 08:00 O2 Del Method Room Air 09/15/23 08:00 BMI result Body Mass Index 24.0 Const: Other: Gen: in no acute distress, legally blind Neck: supple Lungs: clear to auscultation bilaterally Heart: regular rate and rhythm, no murmurs Abd: soft, non-tender, non-distended, bowel sounds audible Ext: no edema Skin: warm/well-perfused Neuro: alert, disoriented, moving all extremities Psych: impaired insight Objective Data Active Medications Acetaminophen (Acetaminophen 325 Mg Tablet) 650 mg PO Q6H PRN PRN Reason: Pain, Mild (Pain Scale 1-3) Last Admin: 09/11/23 21:15 Dose: 650 mg Documented By: DENISSE Atorvastatin Calcium (Atorvastatin Calcium 40 Mg Tablet) 40 mg PO DAILY [facility] Last Admin: 09/15/23 09:14 Dose: 40 mg Documented By: DIMAS Dextrose (Dextrose 50 % 25 Gm/50 Ml Syringe) 25 gm IVPUSH Q15M PRN; Protocol PRN Reason: per Hypoglycemia Standing Ord. Escitalopram Oxalate (Escitalopram Oxalate 10 Mg Tablet) 10 mg PO DAILY [facility] Last Admin: 09/15/23 09:14 Dose: 10 mg Documented By: DIMAS Finasteride (Finasteride 5 Mg Tablet) 5 mg PO DAILY [facility] Last Admin: 09/15/23 09:14 Dose: 5 mg Documented By: DIMAS Glucose (Glucose Gel 15 Gm Gel..Gram.) 15 gm PO Q15M PRN; Protocol PRN Reason: per Hypoglycemia Standing Ord. Guaifenesin/Dextromethorphan (Guaifenesin Dm 100/10/5 Ml 5 Ml Syrup) 10 ml PO Q6H PRN PRN Reason: cough Heparin Sodium (Porcine) (Heparin Sodium,Porcine 5,000 Unit/Ml Vial) 5,000 unit SUBCUT Q12H [facility] Last Admin: 09/15/23 00:44 Dose: 5,000 unit Documented By: ANA Insulin Glargine (Insulin Glargine,Hum.Rec.Anlog 100 Unit/Ml 10 Ml Vial) 25 unit SUBCUT BEDTIME [facility] Last Admin: 09/14/23 22:20 Dose: 25 unit Documented By: ANA Insulin Human Lispro (Insulin Lispro 100 Unit/Ml 3 Ml Vial) 0 unit SUBCUT QIDACHS [facility]; Protocol Last Admin: 09/15/23 11:30 Dose: Not Given Documented By: DIMAS Non-Admin Reason: No Insulin Coverage Losartan Potassium (Losartan Potassium 25 Mg Tablet) 25 mg PO DAILY [facility]; Protocol Last Admin: 09/15/23 09:14 Dose: 25 mg Documented By: DIMAS Metformin HCl (Metformin Hcl 1,000 Mg Tablet) 1,000 mg PO BIDWM [facility] Last Admin: 09/15/23 09:14 Dose: 1,000 mg Documented By: DIMAS Ondansetron HCl (Ondansetron Hcl 4 Mg/2 Ml Vial) 4 mg IVPUSH Q8H PRN PRN Reason: Nausea and Vomiting Quetiapine Fumarate (Quetiapine Fumarate 50 Mg Tablet) 50 mg PO BEDTIME [facility] Last Admin: 09/14/23 22:20 Dose: 50 mg Documented By: ANA Labs 09/13/23 06:56 09/13/23 06:56 Labs: Laboratory Results - last 24 hr 09/14/23 09/14/23 09/15/23 16:18 19:32 07:51 POC Glucose 135 H 232 H 93 09/15/23 11:16 POC Glucose 150 H Microbiology Microbiology Results: Microbiology 09/09/23 16:34 Blood Culture - Final Blood - Venous No growth after 5 days. 09/09/23 16:34 Blood Culture - Final Blood - Venous No growth after 5 days. Assessment and Plan (1) Major neurocognitive disorder due to another medical condition: Status: Acute Plan 73yo M who originally presented to ED 07/26/23 with suicidal ideation that he subsequently denied. Found to have no competency so guardianship is being pursued febrile 09/09/23 and tested positive for Covid-19 Covid-19 infection -continue isolation 09/09-09/19 -finished course of remdesivir , continue supportive care with cough medication, oxygenation stable on room air dementia unspecified -on escitalopram, quetiapine HTN - stable blood pressure on losartan DM2 -stable blood sugars at a.m., continue MTF, glargine and insulin sliding scale HLD - statin BPH - finasteride VTE ppx - UFH dispo - LTC In my clinical judgment, the patient requires continued inpatient hospitalization for the following reasons: placement Total time managing care of this patient today: 35 minutes. Quality Stroke Does the patient have a stroke diagnosis?: No VTE Prior VTE?: No VTE Risk Level:: Medical - moderate - high VTE Device Contraindication: Treatment Not Tolerated VTE Drug Contraindication: N/A - Med Ordered
[2023-09-15] MEDS: Acetaminophen 325 MG TABLET 650 MG PO (11:48)
[2023-09-15 16:43] LABS: Glucose, Whole Blood 132 mg/dL (60-115)
[2023-09-15 21:11] LABS: Glucose, Whole Blood 150 mg/dL (60-115)
[2023-09-15] MEDS: Insulin Glargine,Hum.rec.anlog 100 UNIT/ML 10 ML VIAL 25 UNIT SUBCUT (23:23)
[2023-09-15] MEDS: QUEtiapine Fumarate 50 MG TABLET PO (23:23)
[2023-09-16] MEDS: Heparin Sodium,Porcine 5,000 UNIT/ML VIAL 5000 UNIT SUBCUT ×2 (01:45→11:49)
[2023-09-16 03:28] VITALS: BP 115/67; PULSE 75; RESP 16; TEMP 36.3; O2SAT 95
[2023-09-16 07:45] VITALS: BP 116/67; PULSE 78; RESP 16; TEMP 36.8; O2SAT 94
[2023-09-16] MEDS: Finasteride 5 MG TABLET PO (08:09)
[2023-09-16] MEDS: Losartan Potassium 25 MG TABLET PO (08:09)
[2023-09-16] MEDS: metFORMIN HCl 1,000 MG TABLET 1000 MG PO ×2 (08:09→17:53)
[2023-09-16] MEDS: Escitalopram Oxalate 10 MG TABLET PO (08:09)
[2023-09-16] MEDS: Atorvastatin Calcium 40 MG TABLET PO (08:09)
[2023-09-16 09:20] LABS: Glucose, Whole Blood 133 mg/dL (60-115)
[2023-09-16 11:21] VITALS: BP 113/61; PULSE 74; RESP 16; TEMP 36; O2SAT 94
[2023-09-16] MEDS: Insulin Lispro 100 UNIT/ML 3 ML VIAL SUBCUT ×2 (11:50→23:21)
[2023-09-16 12:04] LABS: Glucose, Whole Blood 194 mg/dL (60-115)
--- NOTE | 2023-09-16 12:15 | HO.PM.IMPN ---
Subjective Subjective Date of Service: 09/16/23 Interval History: History obtained via supervisor [employer]ehive [employer], patient resting comfortably offers no acute complaints of shortness of breath no cough no chest pain, no nausea, no vomiting, no abdominal pain tolerating diet, and ambulating without headache or dizziness. Review of Systems All other system reviewed and negative. Physical Exam Vital Signs: Vital Signs: Last Vital Signs Temp 96.8 F 09/16/23 11:21 Pulse 74 09/16/23 11:21 Resp 16 09/16/23 11:21 BP 113/61 09/16/23 11:21 Pulse Ox 94 09/16/23 11:21 O2 Del Method Room Air 09/16/23 11:21 BMI result Body Mass Index 24.0 Const: Other: Gen: in no acute distress, legally blind Neck: supple Lungs: clear to auscultation bilaterally Heart: regular rate and rhythm, no murmurs Abd: soft, non-tender, non-distended, bowel sounds audible Ext: no edema Skin: warm/well-perfused Neuro: alert, disoriented, moving all extremities Psych: impaired insight Objective Data Active Medications Acetaminophen (Acetaminophen 325 Mg Tablet) 650 mg PO Q6H PRN PRN Reason: Pain, Mild (Pain Scale 1-3) Last Admin: 09/15/23 11:48 Dose: 650 mg Documented By: DIMAS Atorvastatin Calcium (Atorvastatin Calcium 40 Mg Tablet) 40 mg PO DAILY [facility] Last Admin: 09/16/23 08:09 Dose: 40 mg Documented By: ANALI Dextrose (Dextrose 50 % 25 Gm/50 Ml Syringe) 25 gm IVPUSH Q15M PRN; Protocol PRN Reason: per Hypoglycemia Standing Ord. Escitalopram Oxalate (Escitalopram Oxalate 10 Mg Tablet) 10 mg PO DAILY [facility] Last Admin: 09/16/23 08:09 Dose: 10 mg Documented By: ANALI Finasteride (Finasteride 5 Mg Tablet) 5 mg PO DAILY [facility] Last Admin: 09/16/23 08:09 Dose: 5 mg Documented By: ANALI Glucose (Glucose Gel 15 Gm Gel..Gram.) 15 gm PO Q15M PRN; Protocol PRN Reason: per Hypoglycemia Standing Ord. Guaifenesin/Dextromethorphan (Guaifenesin Dm 100/10/5 Ml 5 Ml Syrup) 10 ml PO Q6H PRN PRN Reason: cough Heparin Sodium (Porcine) (Heparin Sodium,Porcine 5,000 Unit/Ml Vial) 5,000 unit SUBCUT Q12H [facility] Last Admin: 09/16/23 11:49 Dose: 5,000 unit Documented By: ANALI Insulin Glargine (Insulin Glargine,Hum.Rec.Anlog 100 Unit/Ml 10 Ml Vial) 25 unit SUBCUT BEDTIME [facility] Last Admin: 09/15/23 23:23 Dose: 25 unit Documented By: MIRIAN Insulin Human Lispro (Insulin Lispro 100 Unit/Ml 3 Ml Vial) 0 unit SUBCUT QIDACHS [facility]; Protocol Last Admin: 09/16/23 11:50 Dose: 2 unit Documented By: ANALI Losartan Potassium (Losartan Potassium 25 Mg Tablet) 25 mg PO DAILY [facility]; Protocol Last Admin: 09/16/23 08:09 Dose: 25 mg Documented By: ANALI Metformin HCl (Metformin Hcl 1,000 Mg Tablet) 1,000 mg PO BIDWM [facility] Last Admin: 09/16/23 08:09 Dose: 1,000 mg Documented By: ANALI Ondansetron HCl (Ondansetron Hcl 4 Mg/2 Ml Vial) 4 mg IVPUSH Q8H PRN PRN Reason: Nausea and Vomiting Quetiapine Fumarate (Quetiapine Fumarate 50 Mg Tablet) 50 mg PO BEDTIME [facility] Last Admin: 09/15/23 23:23 Dose: 50 mg Documented By: MIRIAN Labs 09/13/23 06:56 09/13/23 06:56 Labs: Laboratory Results - last 24 hr 09/15/23 09/15/23 09/16/23 16:36 20:49 08:07 POC Glucose 132 H 150 H 133 H 09/16/23 11:38 POC Glucose 194 H Assessment and Plan (1) Major neurocognitive disorder due to another medical condition: Status: Acute Plan 73yo M who originally presented to ED 07/26/23 with suicidal ideation that he subsequently denied. Found to have no competency so guardianship is being pursued febrile 09/09/23 and tested positive for Covid-19 Covid-19 infection -continue isolation 09/09-09/19 -finished course of remdesivir , continue supportive care with cough medication, oxygenation stable on room air dementia unspecified -on escitalopram, quetiapine HTN - stable blood pressure on losartan DM2 -stable blood sugars at a.m., continue MTF, glargine and insulin sliding scale HLD - LDL 58, total cholesterol 115, on Lipitor 40 mg daily , will decrease dose to lipitor 20 mg and repeat labs in 3-4 months. BPH - finasteride VTE ppx - UFH dispo - LTC In my clinical judgment, the patient requires continued inpatient hospitalization for the following reasons: placement Total time managing care of this patient today: 35 minutes. Quality Stroke Does the patient have a stroke diagnosis?: No VTE Prior VTE?: No VTE Risk Level:: Medical - moderate - high VTE Device Contraindication: Treatment Not Tolerated VTE Drug Contraindication: N/A - Med Ordered
--- NOTE | 2023-09-16 14:27 | MHC.CM.PN ---
EMR reviewed and per MD rounds, pt is medically cleared, but not able to D/C due to awaiting info from guardian regarding LTC payer source. Guardian will reach out to CM when they have pts financial info. CM will continue to follow.
[2023-09-16 16:00] VITALS: BP 118/61; PULSE 82; RESP 16; TEMP 36.1; O2SAT 96
[2023-09-16 16:22] LABS: Glucose, Whole Blood 143 mg/dL (60-115)
[2023-09-16 19:44] VITALS: BP 130/62; PULSE 76; RESP 18; TEMP 36.2; O2SAT 96
[2023-09-16 20:41] LABS: Glucose, Whole Blood 207 mg/dL (60-115)
[2023-09-16 22:34] LABS: Glucose, Whole Blood 162 mg/dL (60-115)
[2023-09-16] MEDS: Insulin Glargine,Hum.rec.anlog 100 UNIT/ML 10 ML VIAL 25 UNIT SUBCUT (23:19)
[2023-09-16] MEDS: QUEtiapine Fumarate 50 MG TABLET PO (23:21)
[2023-09-17] VITALS (7 sets, daily range): BP systolic 107–125; BP diastolic 54–63; PULSE 70–78; RESP 18–20; TEMP 36.1–36.9; O2SAT 95–98
[2023-09-17] MEDS: Heparin Sodium,Porcine 5,000 UNIT/ML VIAL 5000 UNIT SUBCUT ×2 (02:29→13:13)
[2023-09-17 07:43] LABS: Glucose, Whole Blood 120 mg/dL (60-115)
[2023-09-17] MEDS: Escitalopram Oxalate 10 MG TABLET PO (08:18)
[2023-09-17] MEDS: Atorvastatin Calcium 20 MG TABLET PO (08:18)
[2023-09-17] MEDS: Finasteride 5 MG TABLET PO (08:18)
[2023-09-17] MEDS: Losartan Potassium 25 MG TABLET PO (08:18)
[2023-09-17] MEDS: metFORMIN HCl 1,000 MG TABLET 1000 MG PO ×2 (08:18→17:15)
--- NOTE | 2023-09-17 11:51 | P.PNIM_ITS ---
Subjective Subjective Date of Service: 09/17/23 Interval History: History obtained via writer editor, patient offers no acute complaints of shortness of breath, no cough denies lightheadedness or dizziness walking to bathroom tolerating diet, no acute events overnight. Review of Systems All other system reviewed and negative. Physical Exam 2 Vital Signs: Vital Signs: Last Vital Signs Temp 96.9 F 09/17/23 11:32 Pulse 77 09/17/23 11:32 Resp 18 09/17/23 11:32 BP 113/58 L 09/17/23 11:32 Pulse Ox 96 09/17/23 11:32 O2 Del Method Room Air 09/17/23 11:32 BMI result Body Mass Index 24.0 Const: Other: Gen: in no acute distress, legally blind Neck: supple Lungs: clear to auscultation bilaterally Heart: regular rate and rhythm, no murmurs Abd: soft, non-tender, non-distended, bowel sounds audible Ext: no edema Skin: warm/well-perfused Neuro: alert, disoriented, moving all extremities Psych: impaired insight Objective Data Active Medications Acetaminophen (Acetaminophen 325 Mg Tablet) 650 mg PO Q6H PRN PRN Reason: Pain, Mild (Pain Scale 1-3) Last Admin: 09/15/23 11:48 Dose: 650 mg Documented By: DIMAS Atorvastatin Calcium (Atorvastatin Calcium 20 Mg Tablet) 20 mg PO DAILY [facility] Last Admin: 09/17/23 08:18 Dose: 20 mg Documented By: ANALI Dextrose (Dextrose 50 % 25 Gm/50 Ml Syringe) 25 gm IVPUSH Q15M PRN; Protocol PRN Reason: per Hypoglycemia Standing Ord. Escitalopram Oxalate (Escitalopram Oxalate 10 Mg Tablet) 10 mg PO DAILY [facility] Last Admin: 09/17/23 08:18 Dose: 10 mg Documented By: ANALI Finasteride (Finasteride 5 Mg Tablet) 5 mg PO DAILY [facility] Last Admin: 09/17/23 08:18 Dose: 5 mg Documented By: ANALI Glucose (Glucose Gel 15 Gm Gel..Gram.) 15 gm PO Q15M PRN; Protocol PRN Reason: per Hypoglycemia Standing Ord. Guaifenesin/Dextromethorphan (Guaifenesin Dm 100/10/5 Ml 5 Ml Syrup) 10 ml PO Q6H PRN PRN Reason: cough Heparin Sodium (Porcine) (Heparin Sodium,Porcine 5,000 Unit/Ml Vial) 5,000 unit SUBCUT Q12H [facility] Last Admin: 09/17/23 02:29 Dose: 5,000 unit Documented By: MIRIAN Insulin Glargine (Insulin Glargine,Hum.Rec.Anlog 100 Unit/Ml 10 Ml Vial) 25 unit SUBCUT BEDTIME [facility] Last Admin: 09/16/23 23:19 Dose: 25 unit Documented By: JONH Insulin Human Lispro (Insulin Lispro 100 Unit/Ml 3 Ml Vial) 0 unit SUBCUT QIDACHS [facility]; Protocol Last Admin: 09/17/23 07:50 Dose: Not Given Documented By: ANALI Non-Admin Reason: poc= 120 Losartan Potassium (Losartan Potassium 25 Mg Tablet) 25 mg PO DAILY [facility]; Protocol Last Admin: 09/17/23 08:18 Dose: 25 mg Documented By: ANALI Metformin HCl (Metformin Hcl 1,000 Mg Tablet) 1,000 mg PO BIDWM [facility] Last Admin: 09/17/23 08:18 Dose: 1,000 mg Documented By: ANALI Ondansetron HCl (Ondansetron Hcl 4 Mg/2 Ml Vial) 4 mg IVPUSH Q8H PRN PRN Reason: Nausea and Vomiting Quetiapine Fumarate (Quetiapine Fumarate 50 Mg Tablet) 50 mg PO BEDTIME [facility] Last Admin: 09/16/23 23:21 Dose: 50 mg Documented By: JONH Labs 09/13/23 06:56 09/13/23 06:56 Labs: Laboratory Results - last 24 hr 09/16/23 09/16/23 09/16/23 11:38 16:15 20:38 POC Glucose 194 H 143 H 207 H 09/16/23 09/17/23 22:29 07:36 POC Glucose 162 H 120 H Assessment and Plan (1) Major neurocognitive disorder due to another medical condition: Status: Acute Plan 73yo M who originally presented to ED 07/26/23 with suicidal ideation that he subsequently denied. Found to have no competency so guardianship is being pursued febrile 09/09/23 and tested positive for Covid-19 Covid-19 infection -isolation 09/09-09/19 -finished course of remdesivir , continue supportive care with cough medication, oxygenation stable on room air dementia unspecified -on escitalopram, quetiapine HTN - stable blood pressure on losartan DM2 -stable blood sugars at a.m., continue MTF, glargine and insulin sliding scale HLD - LDL 58, total cholesterol 115, on Lipitor 40 mg daily , will decrease dose to lipitor 20 mg and repeat labs in 3-4 months. BPH - finasteride VTE ppx - UFH dispo - LTC In my clinical judgment, the patient requires continued inpatient hospitalization for the following reasons: placement Total time managing care of this patient today: 35 minutes. Quality Stroke Does the patient have a stroke diagnosis?: No VTE Prior VTE?: No VTE Risk Level:: Medical - moderate - high VTE Device Contraindication: Treatment Not Tolerated VTE Drug Contraindication: N/A - Med Ordered
[2023-09-17 12:59] LABS: Glucose, Whole Blood 159 mg/dL (60-115)
[2023-09-17] MEDS: Insulin Lispro 100 UNIT/ML 3 ML VIAL SUBCUT (13:13)
[2023-09-17 16:20] LABS: Glucose, Whole Blood 148 mg/dL (60-115)
[2023-09-17 20:09] LABS: Glucose, Whole Blood 140 mg/dL (60-115)
[2023-09-17] MEDS: QUEtiapine Fumarate 50 MG TABLET PO (20:12)
[2023-09-17] MEDS: Insulin Glargine,Hum.rec.anlog 100 UNIT/ML 10 ML VIAL 25 UNIT SUBCUT (20:12)
[2023-09-18] MEDS: Heparin Sodium,Porcine 5,000 UNIT/ML VIAL 5000 UNIT SUBCUT ×3 (00:19→23:41)
[2023-09-18 04:00] VITALS: BP 100/61; PULSE 75; RESP 20; TEMP 36.7; O2SAT 96
[2023-09-18 07:33] LABS: Glucose, Whole Blood 123 mg/dL (60-115)
[2023-09-18 07:37] VITALS: BP 108/56; PULSE 66; RESP 16; TEMP 37.2; O2SAT 96
[2023-09-18] MEDS: Losartan Potassium 25 MG TABLET PO (09:02)
[2023-09-18] MEDS: metFORMIN HCl 1,000 MG TABLET 1000 MG PO ×2 (09:02→17:24)
[2023-09-18] MEDS: Escitalopram Oxalate 10 MG TABLET PO (09:03)
[2023-09-18] MEDS: Finasteride 5 MG TABLET PO (09:03)
[2023-09-18] MEDS: Atorvastatin Calcium 20 MG TABLET PO (09:03)
[2023-09-18 11:15] VITALS: BP 110/55; PULSE 65; RESP 16; TEMP 36.2; O2SAT 96
--- NOTE | 2023-09-18 11:18 | MHC.CM.PN ---
CM called guardian, Ana Maria Valdez's office, to ask if they have any information on pt.'s finances or insurance so that we can make referrals to SNF's. They will call back with an update.
[2023-09-18 11:30] LABS: Glucose, Whole Blood 175 mg/dL (60-115)
[2023-09-18] MEDS: Insulin Lispro 100 UNIT/ML 3 ML VIAL SUBCUT (11:55)
[2023-09-18 15:37] VITALS: BP 111/58; PULSE 70; RESP 16; TEMP 36.3; O2SAT 98
[2023-09-18 16:09] LABS: Glucose, Whole Blood 125 mg/dL (60-115)
--- NOTE | 2023-09-18 17:05 | HO.PM.IMPN ---
Subjective Subjective Date of Service: 09/18/23 Interval History: seen and examined this morning follow up for placement no overnight events, no specific complaints Review of Systems Review of Systems: Yes all other systems are reviewed and are negative Cardiovascular Cardiovascular: Denies chest pain and Denies dyspnea Respiratory Respiratory: Denies dyspnea Gastrointestinal Gastrointestinal: Denies abdominal pain Physical Exam Vital Signs: Vital Signs: Last Vital Signs Temp 97.3 F 09/18/23 15:37 Pulse 70 09/18/23 15:37 Resp 16 09/18/23 15:37 BP 111/58 L 09/18/23 15:37 Pulse Ox 98 09/18/23 15:37 O2 Del Method Room Air 09/18/23 15:37 BMI result Body Mass Index 24.0 Const: Other: pleasantly confused General: cooperative, comfortable, no acute distress, alert and awake Nutritional Appearance: average body habitus Resp: Effort & Inspection: normal respiratory effort and able to speak in complete sentences Cardio: Rate: regular rate GI: Palpation (GI): Soft to palpation and nontender Extrem: Other: 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 Escitalopram Oxalate (Escitalopram Oxalate 10 Mg Tablet) 10 mg PO DAILY COUNT INCLUDES [facility] Last Admin: 09/18/23 09:03 Dose: 10 mg Documented By: JUAN J Finasteride (Finasteride 5 Mg Tablet) 5 mg PO DAILY COUNT [facility]CLUDES [facility] Last Admin: 09/18/23 09:03 Dose: 5 mg Documented By: JUAN J Glucose (Glucose Gel 15 Gm Gel..Gram.) 15 gm PO Q15M PRN; Protocol PRN Reason: per Hypoglycemia Standing Ord. Guaifenesin/Dextromethorphan (Guaifenesin Dm 100/10/5 Ml 5 Ml Syrup) 10 ml PO Q6H PRN PRN Reason: cough Heparin Sodium (Porcine) (Heparin Sodium,Porcine 5,000 Unit/Ml Vial) 5,000 unit SUBCUT Q12H COUNT INCLUDES [facility] Last Admin: 09/18/23 11:56 Dose: 5,000 unit Documented By: JUAN J Insulin Glargine (Insulin Glargine,Hum.Rec.Anlog 100 Unit/Ml 10 Ml Vial) 25 unit SUBCUT BEDTIME COUNT INCLUDES [facility] Last Admin: 09/17/23 20:12 Dose: 25 unit Documented By: BETTY Comments: Insulin Human Lispro (Insulin Lispro 100 Unit/Ml 3 Ml Vial) 0 unit SUBCUT QIDACHS COUNT [facility]CLUDES THE [facility]; Protocol Last Admin: 09/18/23 16:16 Dose: Not Given Documented By: JUAN J Non-Admin Reason: No Insulin Coverage Losartan Potassium (Losartan Potassium 25 Mg Tablet) 25 mg PO DAILY COUNT [facility]CLUDES [facility]; Protocol Last Admin: 09/18/23 09:02 Dose: 25 mg Documented By: JUAN J Metformin HCl (Metformin Hcl 1,000 Mg Tablet) 1,000 mg PO BIDWM COUNT [facility]CLUDES [facility] Last Admin: 09/18/23 09:02 Dose: 1,000 mg Documented By: JUAN J Ondansetron HCl (Ondansetron Hcl 4 Mg/2 Ml Vial) 4 mg IVPUSH Q8H PRN PRN Reason: Nausea and Vomiting Quetiapine Fumarate (Quetiapine Fumarate 50 Mg Tablet) 50 mg PO BEDTIME COUNT [facility]CLUDES [facility] Last Admin: 09/17/23 20:12 Dose: 50 mg Documented By: BETTY Labs 09/13/23 06:56 09/13/23 06:56 Labs: Laboratory Results - last 24 hr 09/17/23 09/18/23 09/18/23 19:59 07:20 11:18 POC Glucose 140 H 123 H 175 H 09/18/23 15:40 POC Glucose 125 H Assessment and Plan (1) Major neurocognitive disorder due to another medical condition: Status: Acute Plan 73yo M who originally presented to ED 07/26/23 with suicidal ideation that he subsequently denied. Found to have no competency so guardianship is being pursued febrile 09/09/23 and tested positive for Covid-19 Covid-19 infection -isolation 09/09-09/19 -finished course of remdesivir , continue supportive care with cough medication, oxygenation stable on room air dementia unspecified -on escitalopram, quetiapine HTN - stable blood pressure on losartan DM2 -stable blood sugars at a.m., continue MTF, glargine and insulin sliding scale HLD - LDL 58, total cholesterol 115, on Lipitor 40 mg daily , will decrease dose to lipitor 20 mg and repeat labs in 3-4 months. BPH - finasteride VTE ppx - UFH dispo - LTC In my clinical judgment, the patient requires continued inpatient hospitalization for the following reasons: placement Quality Stroke Does the patient have a stroke diagnosis?: No VTE Prior VTE?: No VTE Risk Level:: Medical - moderate - high VTE Device Contraindication: Treatment Not Tolerated VTE Drug Contraindication: N/A - Med Ordered
[2023-09-18 19:54] VITALS: BP 108/53; PULSE 76; RESP 18; TEMP 36.3; O2SAT 95
[2023-09-18 21:45] LABS: Glucose, Whole Blood 137 mg/dL (60-115)
[2023-09-18] MEDS: QUEtiapine Fumarate 50 MG TABLET PO (22:27)
[2023-09-18] MEDS: Insulin Glargine,Hum.rec.anlog 100 UNIT/ML 10 ML VIAL 25 UNIT SUBCUT (22:27)
[2023-09-18 23:33] VITALS: BP 108/62; PULSE 70; RESP 18; TEMP 36.1; O2SAT 95
[2023-09-19 03:33] VITALS: BP 123/66; PULSE 68; RESP 18; TEMP 36; O2SAT 96
[2023-09-19 07:28] VITALS: BP 113/58; PULSE 71; RESP 20; TEMP 36.1; O2SAT 95
[2023-09-19 07:52] LABS: Glucose, Whole Blood 94 mg/dL (60-115)
[2023-09-19] MEDS: metFORMIN HCl 1,000 MG TABLET 1000 MG PO ×2 (08:16→16:59)
[2023-09-19] MEDS: Atorvastatin Calcium 20 MG TABLET PO (08:16)
[2023-09-19] MEDS: Losartan Potassium 25 MG TABLET PO (08:16)
[2023-09-19] MEDS: Escitalopram Oxalate 10 MG TABLET PO (08:16)
[2023-09-19] MEDS: Finasteride 5 MG TABLET PO (08:16)
[2023-09-19 09:16] LABS: Hematocrit 42.1 % (42.0-52.0); Hemoglobin 14.4 g/dl (14.0-18.0); Mean Corpuscular HGB Conc 34.2 g/dl (31.0-36.0); Mean Corpuscular Hemoglobin 29.3 pg (27.0-33.0); Mean Corpuscular Volume 85.7 fL (80.0-98.0); Mean Platelet Volume 9.4 fL (9.4-12.4); Platelet Count 268 X10*3/uL (160-400); Red Blood Count 4.91 X10*6/uL (4.60-5.80); White Blood Count 5.5 X10*3/uL (4.8-10.8)
[2023-09-19 09:31] LABS: Anion Gap 16 (12-20); Blood Urea Nitrogen 15 mg/dL (9-16); Calcium 10.1 mg/dL (8.4-10.2); Carbon Dioxide 31 mmol/L (22-29); Chloride 100 mmol/L (96-108); Creatinine Clr Calc Pharmacy 88.6; Estimated Glomerular Filt Rate > 60; Glucose Random 104 mg/dL (60-115); Potassium 4.8 mmol/L (3.3-5.1); Sodium 142 mmol/L (135-145)
[2023-09-19 11:37] VITALS: BP 104/59; PULSE 67; RESP 20; TEMP 36.3; O2SAT 96
[2023-09-19] MEDS: Heparin Sodium,Porcine 5,000 UNIT/ML VIAL 5000 UNIT SUBCUT (11:48)
[2023-09-19] MEDS: Insulin Lispro 100 UNIT/ML 3 ML VIAL SUBCUT ×2 (11:48→21:01)
[2023-09-19 11:51] LABS: Glucose, Whole Blood 195 mg/dL (60-115)
--- NOTE | 2023-09-19 14:26 | MHC.CLN ---
NUTRITION CONSULT FOR BOGGY HEELS. DIET=DIABETIC 2000 KCALS. INTAKE AT MEALS USUALLY EXCELLENT. MONITOR SKIN INTEGRITY WEEKLY.
[2023-09-19 15:48] VITALS: BP 108/55; PULSE 74; RESP 20; TEMP 36.5; O2SAT 95
--- NOTE | 2023-09-19 16:11 | HO.PM.IMPN ---
Subjective Subjective Date of Service: 09/19/23 Interval History: seen and examined this morning follow up for placement no overnight events no complaints Review of Systems Review of Systems: Yes all other systems are reviewed and are negative Constitutional Constitutional: Denies chills and Denies fever(s) Cardiovascular Cardiovascular: Denies chest pain and Denies dyspnea Respiratory Respiratory: Denies dyspnea Gastrointestinal Gastrointestinal: Denies abdominal pain Physical Exam Vital Signs: Vital Signs: Last Vital Signs Temp 97.7 F 09/19/23 15:48 Pulse 74 09/19/23 15:48 Resp 20 09/19/23 15:48 BP 108/55 L 09/19/23 15:48 Pulse Ox 95 09/19/23 15:48 O2 Del Method Room Air 09/19/23 15:48 BMI result Body Mass Index 24.0 Const: Other: pleasantly confused General: cooperative, comfortable, no acute distress, alert and awake Nutritional Appearance: average body habitus Resp: Effort & Inspection: normal respiratory effort and able to speak in complete sentences Cardio: Rate: regular rate GI: Palpation (GI): Soft to palpation and nontender Extrem: Other: 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 Escitalopram Oxalate (Escitalopram Oxalate 10 Mg Tablet) 10 mg PO DAILY [facility] Last Admin: 09/19/23 08:16 Dose: 10 mg Documented By: CHRISTI Finasteride (Finasteride 5 Mg Tablet) 5 mg PO DAILY [facility] Last Admin: 09/19/23 08:16 Dose: 5 mg Documented By: CHRISTI Glucose (Glucose Gel 15 Gm Gel..Gram.) 15 gm PO Q15M PRN; Protocol PRN Reason: per Hypoglycemia Standing Ord. Guaifenesin/Dextromethorphan (Guaifenesin Dm 100/10/5 Ml 5 Ml Syrup) 10 ml PO Q6H PRN PRN Reason: cough Heparin Sodium (Porcine) (Heparin Sodium,Porcine 5,000 Unit/Ml Vial) 5,000 unit SUBCUT Q12H [facility] Last Admin: 09/19/23 11:48 Dose: 5,000 unit Documented By: CHRISTI Insulin Glargine (Insulin Glargine,Hum.Rec.Anlog 100 Unit/Ml 10 Ml Vial) 25 unit SUBCUT BEDTIME [facility] Last Admin: 09/18/23 22:27 Dose: 25 unit Documented By: RAFAEL Insulin Human Lispro (Insulin Lispro 100 Unit/Ml 3 Ml Vial) 0 unit SUBCUT QIDACHS [facility]; Protocol Last Admin: 09/19/23 11:48 Dose: 2 unit Documented By: CHRISTI Losartan Potassium (Losartan Potassium 25 Mg Tablet) 25 mg PO DAILY [facility]; Protocol Last Admin: 09/19/23 08:16 Dose: 25 mg Documented By: CHRISTI Metformin HCl (Metformin Hcl 1,000 Mg Tablet) 1,000 mg PO BIDWM [facility] Last Admin: 09/19/23 08:16 Dose: 1,000 mg Documented By: CHRISTI Ondansetron HCl (Ondansetron Hcl 4 Mg/2 Ml Vial) 4 mg IVPUSH Q8H PRN PRN Reason: Nausea and Vomiting Quetiapine Fumarate (Quetiapine Fumarate 50 Mg Tablet) 50 mg PO BEDTIME [facility] Last Admin: 09/18/23 22:27 Dose: 50 mg Documented By: RAFAEL Labs 09/19/23 08:34 09/19/23 08:34 Labs: Laboratory Results - last 24 hr 09/18/23 09/19/23 09/19/23 20:38 07:30 08:34 MCV 85.7 MCH 29.3 MCHC 34.2 RDW 13.0 Plt Count 268 D MPV 9.4 Absolute Nucleated RBC 0.000 Nucleated RBC % (auto) 0.0 Anion Gap 16 Estim Creat Clear Calc Cancelled Estimated GFR POC Glucose 137 H 94 Random Glucose Calcium 09/19/23 09/19/23 09/19/23 08:34 08:34 11:41 MCV MCH MCHC RDW Plt Count MPV Absolute Nucleated RBC Nucleated RBC % (auto) Anion Gap Estim Creat Clear Calc 88.6 Estimated GFR Cancelled > 60 POC Glucose 195 H Random Glucose 104 Calcium 10.1 D Assessment and Plan (1) Major neurocognitive disorder due to another medical condition: Status: Acute Plan 73yo M who originally presented to ED 07/26/23 with suicidal ideation that he subsequently denied. Found to have no competency so guardianship is being pursued febrile 09/09/23 and tested positive for Covid-19 Covid-19 infection isolation 09/09-09/19 finished course of remdesivir , continue supportive care with cough medication, oxygenation stable on room air dementia unspecified on escitalopram, quetiapine HTN stable blood pressure on losartan DM2 stable blood sugars at a.m., continue MTF, glargine and insulin sliding scale HLD LDL 58, total cholesterol 115, on Lipitor 40 mg daily , will decrease dose to lipitor 20 mg and repeat labs in 3-4 months. BPH finasteride VTE ppx UFH dispo LTC In my clinical judgment, the patient requires continued inpatient hospitalization for the following reasons: placement Quality Stroke Does the patient have a stroke diagnosis?: No VTE Prior VTE?: No VTE Risk Level:: Medical - moderate - high VTE Device Contraindication: Treatment Not Tolerated VTE Drug Contraindication: N/A - Med Ordered
[2023-09-19 16:47] LABS: Glucose, Whole Blood 135 mg/dL (60-115)
[2023-09-19 19:28] VITALS: BP 109/59; PULSE 70; RESP 20; TEMP 36.2; O2SAT 96
[2023-09-19 19:55] LABS: Glucose, Whole Blood 159 mg/dL (60-115)
[2023-09-19] MEDS: QUEtiapine Fumarate 50 MG TABLET PO (21:01)
[2023-09-19] MEDS: Insulin Glargine,Hum.rec.anlog 100 UNIT/ML 10 ML VIAL 25 UNIT SUBCUT (21:01)
[2023-09-19 23:23] VITALS: BP 125/64; PULSE 81; RESP 20; TEMP 36; O2SAT 96
[2023-09-20] VITALS (8 sets, daily range): BP systolic 100–110; BP diastolic 54–61; PULSE 65–79; RESP 16–20; TEMP 36–36.8; O2SAT 96–99
[2023-09-20] MEDS: Heparin Sodium,Porcine 5,000 UNIT/ML VIAL 5000 UNIT SUBCUT ×2 (03:17→11:36)
[2023-09-20 07:34] LABS: Glucose, Whole Blood 135 mg/dL (60-115)
[2023-09-20] MEDS: metFORMIN HCl 1,000 MG TABLET 1000 MG PO ×2 (09:18→15:33)
[2023-09-20] MEDS: Atorvastatin Calcium 20 MG TABLET PO (09:18)
[2023-09-20] MEDS: Losartan Potassium 25 MG TABLET PO (09:18)
[2023-09-20] MEDS: Finasteride 5 MG TABLET PO (09:18)
[2023-09-20] MEDS: Escitalopram Oxalate 10 MG TABLET PO (09:18)
[2023-09-20 11:28] LABS: Glucose, Whole Blood 209 mg/dL (60-115)
[2023-09-20] MEDS: Insulin Lispro 100 UNIT/ML 3 ML VIAL SUBCUT (11:36)
[2023-09-20 15:29] LABS: Glucose, Whole Blood 144 mg/dL (60-115)
--- NOTE | 2023-09-20 16:13 | HO.PM.IMPN ---
Subjective Subjective Date of Service: 09/20/23 Interval History: seen and examined this morning follow up for placement no overnight events no specific complaints Physical Exam Vital Signs: Vital Signs: Last Vital Signs Temp 97.3 F 09/20/23 15:17 Pulse 71 09/20/23 15:17 Resp 18 09/20/23 15:17 BP 102/55 L 09/20/23 15:17 Pulse Ox 97 09/20/23 15:17 O2 Del Method Room Air 09/20/23 15:17 BMI result Body Mass Index 24.0 Const: Other: pleasantly confused General: cooperative, comfortable, no acute distress, alert and awake Nutritional Appearance: average body habitus Resp: Effort & Inspection: normal respiratory effort and able to speak in complete sentences Auscultation: clear to auscultation bilaterally Cardio: Rate: regular rate GI: Palpation (GI): Soft to palpation and nontender Extrem: Other: 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 Escitalopram Oxalate (Escitalopram Oxalate 10 Mg Tablet) 10 mg PO DAILY [facility] Last Admin: 09/20/23 09:18 Dose: 10 mg Documented By: TRISTAN Finasteride (Finasteride 5 Mg Tablet) 5 mg PO DAILY [facility] Last Admin: 09/20/23 09:18 Dose: 5 mg Documented By: TRISTAN Glucose (Glucose Gel 15 Gm Gel..Gram.) 15 gm PO Q15M PRN; Protocol PRN Reason: per Hypoglycemia Standing Ord. Guaifenesin/Dextromethorphan (Guaifenesin Dm 100/10/5 Ml 5 Ml Syrup) 10 ml PO Q6H PRN PRN Reason: cough Heparin Sodium (Porcine) (Heparin Sodium,Porcine 5,000 Unit/Ml Vial) 5,000 unit SUBCUT Q12H [facility] Last Admin: 09/20/23 11:36 Dose: 5,000 unit Documented By: TRISTAN Insulin Glargine (Insulin Glargine,Hum.Rec.Anlog 100 Unit/Ml 10 Ml Vial) 25 unit SUBCUT BEDTIME [facility] Last Admin: 09/19/23 21:01 Dose: 25 unit Documented By: JEANNE Insulin Human Lispro (Insulin Lispro 100 Unit/Ml 3 Ml Vial) 0 unit SUBCUT QIDACHS [facility]; Protocol Last Admin: 09/20/23 15:31 Dose: Not Given Documented By: TRISTAN Non-Admin Reason: No Insulin Coverage Losartan Potassium (Losartan Potassium 25 Mg Tablet) 25 mg PO DAILY [facility]; Protocol Last Admin: 09/20/23 09:18 Dose: 25 mg Documented By: TRISTAN Metformin HCl (Metformin Hcl 1,000 Mg Tablet) 1,000 mg PO BIDWM [facility] Last Admin: 09/20/23 15:33 Dose: 1,000 mg Documented By: TRISTAN Ondansetron HCl (Ondansetron Hcl 4 Mg/2 Ml Vial) 4 mg IVPUSH Q8H PRN PRN Reason: Nausea and Vomiting Quetiapine Fumarate (Quetiapine Fumarate 50 Mg Tablet) 50 mg PO BEDTIME [facility] Last Admin: 09/19/23 21:01 Dose: 50 mg Documented By: JEANNE Labs 09/19/23 08:34 09/19/23 08:34 Labs: Laboratory Results - last 24 hr 09/19/23 09/19/23 09/20/23 15:50 19:30 07:21 POC Glucose 135 H 159 H 135 H 09/20/23 09/20/23 11:23 15:12 POC Glucose 209 H 144 H Assessment and Plan (1) Major neurocognitive disorder due to another medical condition: Status: Acute Plan 73yo M who originally presented to ED 07/26/23 with suicidal ideation that he subsequently denied. Found to have no competency so guardianship is being pursued febrile 09/09/23 and tested positive for Covid-19 Covid-19 infection isolation 09/09-09/19 finished course of remdesivir, oxygenation stable on room air dementia unspecified on escitalopram, quetiapine HTN stable blood pressure on losartan DM2 stable blood sugars at a.m., continue MTF, glargine and insulin sliding scale HLD LDL 58, total cholesterol 115, on Lipitor 40 mg daily , will decrease dose to lipitor 20 mg and repeat labs in 3-4 months. BPH finasteride VTE ppx UFH dispo LTC In my clinical judgment, the patient requires continued inpatient hospitalization for the following reasons: placement Quality Stroke Does the patient have a stroke diagnosis?: No VTE Prior VTE?: No VTE Risk Level:: Medical - moderate - high VTE Device Contraindication: Treatment Not Tolerated VTE Drug Contraindication: N/A - Med Ordered
[2023-09-20 20:35] LABS: Glucose, Whole Blood 105 mg/dL (60-115)
[2023-09-20] MEDS: QUEtiapine Fumarate 50 MG TABLET PO (20:39)
[2023-09-20] MEDS: Insulin Glargine,Hum.rec.anlog 100 UNIT/ML 10 ML VIAL 25 UNIT SUBCUT (20:40)
[2023-09-21] MEDS: Heparin Sodium,Porcine 5,000 UNIT/ML VIAL 5000 UNIT SUBCUT ×3 (01:28→23:44)
[2023-09-21 03:56] VITALS: BP 102/57; PULSE 66; RESP 18; TEMP 36.1
[2023-09-21 07:22] VITALS: BP 104/58; PULSE 64; RESP 18; TEMP 36; O2SAT 96
[2023-09-21 08:11] LABS: Glucose, Whole Blood 91 mg/dL (60-115)
[2023-09-21] MEDS: metFORMIN HCl 1,000 MG TABLET 1000 MG PO ×2 (08:25→17:25)
[2023-09-21] MEDS: Losartan Potassium 25 MG TABLET PO (08:25)
[2023-09-21] MEDS: Finasteride 5 MG TABLET PO (08:25)
[2023-09-21] MEDS: Atorvastatin Calcium 20 MG TABLET PO (08:25)
[2023-09-21] MEDS: Escitalopram Oxalate 10 MG TABLET PO (08:25)
[2023-09-21 10:55] VITALS: BP 102/58; PULSE 73; RESP 18; TEMP 36.3; O2SAT 97
[2023-09-21 11:45] LABS: Glucose, Whole Blood 170 mg/dL (60-115)
[2023-09-21] MEDS: Insulin Lispro 100 UNIT/ML 3 ML VIAL SUBCUT ×2 (12:42→21:00)
--- NOTE | 2023-09-21 13:35 | HO.PM.IMPN ---
Subjective Subjective Date of Service: 09/21/23 Interval History: Seen and examined this morning Follow-up for placement No overnight events No specific complaints this morning. Resting in bed comfortably Review of Systems Review of Systems: Yes all other systems are reviewed and are negative Constitutional Constitutional: Denies chills and Denies fever(s) Cardiovascular Cardiovascular: Denies chest pain, Denies palpitations and Denies dyspnea Respiratory Respiratory: Denies cough and Denies dyspnea Gastrointestinal Gastrointestinal: Denies abdominal pain Endocrine Endocrine: Denies palpitations Physical Exam Vital Signs: Vital Signs: Last Vital Signs Temp 97.4 F 09/21/23 10:55 Pulse 73 09/21/23 10:55 Resp 18 09/21/23 10:55 BP 102/58 L 09/21/23 10:55 Pulse Ox 97 09/21/23 10:55 O2 Del Method Room Air 09/21/23 10:55 BMI result Body Mass Index 24.0 Const: Other: pleasantly confused General: cooperative, comfortable, no acute distress, alert and awake Nutritional Appearance: average body habitus Resp: Effort & Inspection: normal respiratory effort and able to speak in complete sentences Auscultation: clear to auscultation bilaterally Cardio: Rate: regular rate GI: Palpation (GI): Soft to palpation and nontender Extrem: Other: 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 Escitalopram Oxalate (Escitalopram Oxalate 10 Mg Tablet) 10 mg PO DAILY [facility] [place] Last Admin: 09/21/23 08:25 Dose: 10 mg Documented By: TRISTAN Finasteride (Finasteride 5 Mg Tablet) 5 mg PO DAILY [facility] [place] Last Admin: 09/21/23 08:25 Dose: 5 mg Documented By: TRISTAN Glucose (Glucose Gel 15 Gm Gel..Gram.) 15 gm PO Q15M PRN; Protocol PRN Reason: per Hypoglycemia Standing Ord. Guaifenesin/Dextromethorphan (Guaifenesin Dm 100/10/5 Ml 5 Ml Syrup) 10 ml PO Q6H PRN PRN Reason: cough Heparin Sodium (Porcine) (Heparin Sodium,Porcine 5,000 Unit/Ml Vial) 5,000 unit SUBCUT Q12H [facility] Last Admin: 09/21/23 12:41 Dose: 5,000 unit Documented By: TRISTAN Insulin Glargine (Insulin Glargine,Hum.Rec.Anlog 100 Unit/Ml 10 Ml Vial) 25 unit SUBCUT BEDTIME [facility] Last Admin: 09/20/23 20:40 Dose: 25 unit Documented By: JEANNE Insulin Human Lispro (Insulin Lispro 100 Unit/Ml 3 Ml Vial) 0 unit SUBCUT QIDACHS [facility] [place]; Protocol Last Admin: 09/21/23 12:42 Dose: 2 unit Documented By: TRISTAN Losartan Potassium (Losartan Potassium 25 Mg Tablet) 25 mg PO DAILY [facility] [place]; Protocol Last Admin: 09/21/23 08:25 Dose: 25 mg Documented By: TRISTAN Metformin HCl (Metformin Hcl 1,000 Mg Tablet) 1,000 mg PO BIDWM [facility] [place] Last Admin: 09/21/23 08:25 Dose: 1,000 mg Documented By: TRISTAN Ondansetron HCl (Ondansetron Hcl 4 Mg/2 Ml Vial) 4 mg IVPUSH Q8H PRN PRN Reason: Nausea and Vomiting Quetiapine Fumarate (Quetiapine Fumarate 50 Mg Tablet) 50 mg PO BEDTIME [facility] [place] Last Admin: 09/20/23 20:39 Dose: 50 mg Documented By: JEANNE Labs 09/19/23 08:34 09/19/23 08:34 Labs: Laboratory Results - last 24 hr 09/20/23 09/20/23 09/21/23 15:12 20:08 07:26 POC Glucose 144 H 105 91 09/21/23 11:06 POC Glucose 170 H Assessment and Plan (1) Major neurocognitive disorder due to another medical condition: Status: Acute Plan 73yo M who originally presented to ED 07/26/23 with suicidal ideation that he subsequently denied. Found to have no competency so guardianship is being pursued febrile 09/09/23 and tested positive for Covid-19 Covid-19 infection s/p isolation 09/09-09/19 finished course of remdesivir, oxygenation stable on room air dementia unspecified on escitalopram, quetiapine HTN stable blood pressure on losartan DM2 stable blood sugars at a.m., continue MTF, glargine and insulin sliding scale HLD LDL 58, total cholesterol 115, on Lipitor 40 mg daily , will decrease dose to lipitor 20 mg and repeat labs in 3-4 months. BPH finasteride VTE ppx UFH dispo LTC In my clinical judgment, the patient requires continued inpatient hospitalization for the following reasons: placement Quality Stroke Does the patient have a stroke diagnosis?: No VTE Prior VTE?: No VTE Risk Level:: Medical - moderate - high VTE Device Contraindication: Treatment Not Tolerated VTE Drug Contraindication: N/A - Med Ordered
[2023-09-21 16:00] VITALS: BP 111/56; PULSE 72; RESP 18; TEMP 36.3; O2SAT 98
[2023-09-21 16:50] LABS: Glucose, Whole Blood 155 mg/dL (60-115)
[2023-09-21 17:14] LABS: Glucose, Whole Blood 142 mg/dL (60-115)
[2023-09-21 19:11] VITALS: BP 123/68; PULSE 70; RESP 18; TEMP 36.3; O2SAT 96
[2023-09-21 19:58] LABS: Glucose, Whole Blood 198 mg/dL (60-115)
[2023-09-21] MEDS: Insulin Glargine,Hum.rec.anlog 100 UNIT/ML 10 ML VIAL 25 UNIT SUBCUT (21:00)
[2023-09-21] MEDS: QUEtiapine Fumarate 50 MG TABLET PO (21:00)
[2023-09-21 23:35] VITALS: BP 108/55; PULSE 72; RESP 16; TEMP 36.3; O2SAT 97
[2023-09-22 03:23] VITALS: BP 108/60; PULSE 69; RESP 16; TEMP 36.1; O2SAT 96
[2023-09-22 07:07] VITALS: BP 111/59; PULSE 69; RESP 16; TEMP 36.6; O2SAT 97
[2023-09-22 07:11] LABS: Glucose, Whole Blood 98 mg/dL (60-115)
[2023-09-22] MEDS: Losartan Potassium 25 MG TABLET PO (08:23)
[2023-09-22] MEDS: metFORMIN HCl 1,000 MG TABLET 1000 MG PO ×2 (08:23→16:44)
[2023-09-22] MEDS: Atorvastatin Calcium 20 MG TABLET PO (08:23)
[2023-09-22] MEDS: Finasteride 5 MG TABLET PO (08:24)
[2023-09-22] MEDS: Escitalopram Oxalate 10 MG TABLET PO (08:24)
[2023-09-22 11:28] LABS: Glucose, Whole Blood 148 mg/dL (60-115)
--- NOTE | 2023-09-22 11:52 | P.PNIM_ITS ---
Subjective Subjective Date of Service: 09/22/23 Interval History: Follow-up for placement No overnight events, No specific complaints this morning, tolerating diet. Review of Systems All other system reviewed and negative. Physical Exam 2 Vital Signs: Vital Signs: Last Vital Signs Temp 98 F 09/22/23 07:07 Pulse 69 09/22/23 07:07 Resp 16 09/22/23 07:07 BP 111/59 L 09/22/23 07:07 Pulse Ox 97 09/22/23 07:07 O2 Del Method Room Air 09/22/23 07:07 BMI result Body Mass Index 24.0 Const: Other: Gen: in no acute distress, legally blind Neck: supple Lungs: clear to auscultation bilaterally Heart: regular rate and rhythm, no murmurs Abd: soft, non-tender, non-distended, bowel sounds audible Ext: no edema Skin: warm/well-perfused Neuro: alert, disoriented, moving all extremities Psych: impaired insight Objective Data Active Medications Acetaminophen (Acetaminophen 325 Mg Tablet) 650 mg PO Q6H PRN PRN Reason: Pain, Mild (Pain Scale 1-3) Last Admin: 09/15/23 11:48 Dose: 650 mg Documented By: DIMAS Atorvastatin Calcium (Atorvastatin Calcium 20 Mg Tablet) 20 mg PO DAILY [facility] Last Admin: 09/22/23 08:23 Dose: 20 mg Documented By: BRAD Dextrose (Dextrose 50 % 25 Gm/50 Ml Syringe) 25 gm IVPUSH Q15M PRN; Protocol PRN Reason: per Hypoglycemia Standing Ord. Escitalopram Oxalate (Escitalopram Oxalate 10 Mg Tablet) 10 mg PO DAILY [facility] Last Admin: 09/22/23 08:24 Dose: 10 mg Documented By: BRAD Finasteride (Finasteride 5 Mg Tablet) 5 mg PO DAILY [facility] Last Admin: 09/22/23 08:24 Dose: 5 mg Documented By: BRAD Glucose (Glucose Gel 15 Gm Gel..Gram.) 15 gm PO Q15M PRN; Protocol PRN Reason: per Hypoglycemia Standing Ord. Guaifenesin/Dextromethorphan (Guaifenesin Dm 100/10/5 Ml 5 Ml Syrup) 10 ml PO Q6H PRN PRN Reason: cough Heparin Sodium (Porcine) (Heparin Sodium,Porcine 5,000 Unit/Ml Vial) 5,000 unit SUBCUT Q12H [facility] Last Admin: 09/21/23 23:44 Dose: 5,000 unit Documented By: ILENE Insulin Glargine (Insulin Glargine,Hum.Rec.Anlog 100 Unit/Ml 10 Ml Vial) 25 unit SUBCUT BEDTIME [facility] Last Admin: 09/21/23 21:00 Dose: 25 unit Documented By: ILENE Insulin Human Lispro (Insulin Lispro 100 Unit/Ml 3 Ml Vial) 0 unit SUBCUT QIDACHS [facility]; Protocol Last Admin: 09/22/23 11:33 Dose: Not Given Documented By: BRAD Non-Admin Reason: No Insulin Coverage Losartan Potassium (Losartan Potassium 25 Mg Tablet) 25 mg PO DAILY [facility]; Protocol Last Admin: 09/22/23 08:23 Dose: 25 mg Documented By: BRAD Metformin HCl (Metformin Hcl 1,000 Mg Tablet) 1,000 mg PO BIDWM [facility] Last Admin: 09/22/23 08:23 Dose: 1,000 mg Documented By: BRAD Ondansetron HCl (Ondansetron Hcl 4 Mg/2 Ml Vial) 4 mg IVPUSH Q8H PRN PRN Reason: Nausea and Vomiting Quetiapine Fumarate (Quetiapine Fumarate 50 Mg Tablet) 50 mg PO BEDTIME [facility] Last Admin: 09/21/23 21:00 Dose: 50 mg Documented By: ILENE Labs 09/19/23 08:34 09/19/23 08:34 Labs: Laboratory Results - last 24 hr 09/21/23 09/21/23 09/21/23 16:17 17:08 19:47 POC Glucose 155 H 142 H 198 H 09/22/23 09/22/23 07:06 11:23 POC Glucose 98 148 H Assessment and Plan (1) Major neurocognitive disorder due to another medical condition: Status: Acute Plan 73yo M who originally presented to ED 07/26/23 with suicidal ideation that he subsequently denied. Found to have no competency so guardianship is being pursued febrile 09/09/23 and tested positive for Covid-19 Covid-19 infection s/p isolation 09/09-09/19 finished course of remdesivir, oxygenation stable on room air dementia unspecified on escitalopram, quetiapine HTN stable blood pressure on losartan DM2 stable blood sugars at a.m., continue MTF, glargine and insulin sliding scale HLD LDL 58, total cholesterol 115, on Lipitor 40 mg daily , will decrease dose to lipitor 20 mg and repeat labs in 3-4 months. BPH finasteride VTE ppx UFH dispo LTC In my clinical judgment, the patient requires continued inpatient hospitalization for the following reasons: placement Quality Stroke Does the patient have a stroke diagnosis?: No VTE Prior VTE?: No VTE Risk Level:: Medical - moderate - high VTE Device Contraindication: Treatment Not Tolerated VTE Drug Contraindication: N/A - Med Ordered
[2023-09-22] MEDS: Heparin Sodium,Porcine 5,000 UNIT/ML VIAL 5000 UNIT SUBCUT ×2 (13:18→23:24)
--- NOTE | 2023-09-22 15:04 | MHC.CM.PN ---
pper rounds pt is rfeaduy for dc ,awaiting grant order thru the courts
[2023-09-22 15:18] VITALS: BP 109/54; PULSE 74; RESP 18; TEMP 36.5; O2SAT 95
[2023-09-22 16:23] LABS: Glucose, Whole Blood 176 mg/dL (60-115)
[2023-09-22] MEDS: Insulin Lispro 100 UNIT/ML 3 ML VIAL SUBCUT ×2 (16:44→20:24)
[2023-09-22 19:54] LABS: Glucose, Whole Blood 170 mg/dL (60-115)
[2023-09-22 20:00] VITALS: BP 118/62; PULSE 70; RESP 18; TEMP 36.3; O2SAT 97
[2023-09-22] MEDS: QUEtiapine Fumarate 50 MG TABLET PO (20:23)
[2023-09-22] MEDS: Insulin Glargine,Hum.rec.anlog 100 UNIT/ML 10 ML VIAL 25 UNIT SUBCUT (20:26)
[2023-09-23 03:17] VITALS: BP 111/57; PULSE 67; RESP 18; TEMP 36.6; O2SAT 97
[2023-09-23 07:32] VITALS: BP 108/58; PULSE 63; RESP 18; TEMP 36; O2SAT 96
[2023-09-23 07:59] LABS: Glucose, Whole Blood 133 mg/dL (60-115)
[2023-09-23] MEDS: Escitalopram Oxalate 10 MG TABLET PO (08:23)
[2023-09-23] MEDS: Losartan Potassium 25 MG TABLET PO (08:23)
[2023-09-23] MEDS: metFORMIN HCl 1,000 MG TABLET 1000 MG PO ×2 (08:23→17:00)
[2023-09-23] MEDS: Atorvastatin Calcium 20 MG TABLET PO (08:23)
[2023-09-23] MEDS: Finasteride 5 MG TABLET PO (08:24)
--- NOTE | 2023-09-23 09:39 | P.PNIM_ITS ---
Subjective Subjective Date of Service: 09/23/23 Interval History: Offers no acute complaints, tolerating diet no nausea no vomiting no abdominal pain, no acute issues overnight. Being followed for placement. Review of Systems All other system reviewed and negative. Physical Exam 2 Vital Signs: Vital Signs: Last Vital Signs Temp 96.8 F 09/23/23 07:32 Pulse 63 09/23/23 07:32 Resp 18 09/23/23 07:32 BP 108/58 L 09/23/23 07:32 Pulse Ox 96 09/23/23 07:32 O2 Del Method Room Air 09/23/23 07:32 BMI result Body Mass Index 24.0 Const: Other: Gen: in no acute distress, legally blind Neck: supple Lungs: clear to auscultation bilaterally Heart: regular rate and rhythm, no murmurs Abd: soft, non-tender, non-distended, bowel sounds audible Ext: no edema Skin: warm/well-perfused Neuro: alert, disoriented, moving all extremities Psych: impaired insight Objective Data Active Medications Acetaminophen (Acetaminophen 325 Mg Tablet) 650 mg PO Q6H PRN PRN Reason: Pain, Mild (Pain Scale 1-3) Last Admin: 09/15/23 11:48 Dose: 650 mg Documented By: DIMAS Atorvastatin Calcium (Atorvastatin Calcium 20 Mg Tablet) 20 mg PO DAILY [facility] Last Admin: 09/23/23 08:23 Dose: 20 mg Documented By: MERA Dextrose (Dextrose 50 % 25 Gm/50 Ml Syringe) 25 gm IVPUSH Q15M PRN; Protocol PRN Reason: per Hypoglycemia Standing Ord. Escitalopram Oxalate (Escitalopram Oxalate 10 Mg Tablet) 10 mg PO DAILY [facility] Last Admin: 09/23/23 08:23 Dose: 10 mg Documented By: MERA Finasteride (Finasteride 5 Mg Tablet) 5 mg PO DAILY [facility] Last Admin: 09/23/23 08:24 Dose: 5 mg Documented By: MERA Glucose (Glucose Gel 15 Gm Gel..Gram.) 15 gm PO Q15M PRN; Protocol PRN Reason: per Hypoglycemia Standing Ord. Guaifenesin/Dextromethorphan (Guaifenesin Dm 100/10/5 Ml 5 Ml Syrup) 10 ml PO Q6H PRN PRN Reason: cough Heparin Sodium (Porcine) (Heparin Sodium,Porcine 5,000 Unit/Ml Vial) 5,000 unit SUBCUT Q12H [facility] Last Admin: 09/22/23 23:24 Dose: 5,000 unit Documented By: RAFA Insulin Glargine (Insulin Glargine,Hum.Rec.Anlog 100 Unit/Ml 10 Ml Vial) 25 unit SUBCUT BEDTIME [facility] Last Admin: 09/22/23 20:26 Dose: 25 unit Documented By: RAFA Insulin Human Lispro (Insulin Lispro 100 Unit/Ml 3 Ml Vial) 0 unit SUBCUT QIDACHS [facility]; Protocol Last Admin: 09/23/23 08:20 Dose: Not Given Documented By: MERA Non-Admin Reason: No Insulin Coverage Losartan Potassium (Losartan Potassium 25 Mg Tablet) 25 mg PO DAILY [facility]; Protocol Last Admin: 09/23/23 08:23 Dose: 25 mg Documented By: MERA Metformin HCl (Metformin Hcl 1,000 Mg Tablet) 1,000 mg PO BIDWM [facility] Last Admin: 09/23/23 08:23 Dose: 1,000 mg Documented By: MERA Ondansetron HCl (Ondansetron Hcl 4 Mg/2 Ml Vial) 4 mg IVPUSH Q8H PRN PRN Reason: Nausea and Vomiting Quetiapine Fumarate (Quetiapine Fumarate 50 Mg Tablet) 50 mg PO BEDTIME [facility] Last Admin: 09/22/23 20:23 Dose: 50 mg Documented By: RAFA Labs 09/19/23 08:34 09/19/23 08:34 Labs: Laboratory Results - last 24 hr 09/22/23 09/22/23 09/22/23 11:23 16:19 19:45 POC Glucose 148 H 176 H 170 H 09/23/23 07:36 POC Glucose 133 H Assessment and Plan (1) Major neurocognitive disorder due to another medical condition: Status: Acute Plan 73yo M who originally presented to ED 07/26/23 with suicidal ideation that he subsequently denied. Found to have no competency so guardianship is being pursued febrile 09/09/23 and tested positive for Covid-19 Covid-19 infection finished course of remdesivir, oxygenation stable on room air dementia unspecified on escitalopram, and quetiapine HTN stable blood pressure on losartan DM2 stable blood sugars at a.m., continue MTF, glargine and insulin sliding scale HLD LDL 58, total cholesterol 115, on Lipitor 40 mg daily , dose decreased to lipitor 20 mg and recommend repeat labs in 3-4 months. BPH finasteride VTE ppx UFH dispo LTC In my clinical judgment, the patient requires continued inpatient hospitalization for the following reasons: placement Quality Stroke Does the patient have a stroke diagnosis?: No VTE Prior VTE?: No VTE Risk Level:: Medical - moderate - high VTE Device Contraindication: Treatment Not Tolerated VTE Drug Contraindication: N/A - Med Ordered
[2023-09-23 11:20] LABS: Glucose, Whole Blood 207 mg/dL (60-115)
[2023-09-23] MEDS: Insulin Lispro 100 UNIT/ML 3 ML VIAL SUBCUT (11:57)
[2023-09-23] MEDS: Heparin Sodium,Porcine 5,000 UNIT/ML VIAL 5000 UNIT SUBCUT (11:58)
[2023-09-23 15:20] VITALS: BP 106/54; PULSE 56; RESP 18; TEMP 36; O2SAT 96
[2023-09-23 16:36] LABS: Glucose, Whole Blood 121 mg/dL (60-115)
[2023-09-23 20:56] LABS: Glucose, Whole Blood 136 mg/dL (60-115)
[2023-09-23] MEDS: Insulin Glargine,Hum.rec.anlog 100 UNIT/ML 10 ML VIAL 25 UNIT SUBCUT (21:43)
[2023-09-23] MEDS: QUEtiapine Fumarate 50 MG TABLET PO (21:43)
[2023-09-24] MEDS: Heparin Sodium,Porcine 5,000 UNIT/ML VIAL 5000 UNIT SUBCUT ×2 (00:15→11:48)
[2023-09-24 03:25] VITALS: BP 110/58; PULSE 65; RESP 16; TEMP 36.1; O2SAT 96
[2023-09-24 07:32] VITALS: BP 110/55; PULSE 59; RESP 18; TEMP 36.2; O2SAT 97
[2023-09-24 07:37] LABS: Glucose, Whole Blood 115 mg/dL (60-115)
--- NOTE | 2023-09-24 08:57 | P.PNIM_ITS ---
Subjective Subjective Date of Service: 09/24/23 Interval History: Being followed for placement Offers no acute complaints, denies headache ,, no dizziness, no nausea, no vomiting, no abdominal pain or diarrhea, no shortness of breath no acute events. Review of Systems All other system reviewed and negative. Physical Exam 2 Vital Signs: Vital Signs: Last Vital Signs Temp 97.1 F 09/24/23 07:32 Pulse 59 09/24/23 07:32 Resp 18 09/24/23 07:32 BP 110/55 L 09/24/23 07:32 Pulse Ox 97 09/24/23 07:32 O2 Del Method Room Air 09/24/23 07:32 BMI result Body Mass Index 24.0 Const: Other: Gen: in no acute distress, legally blind Neck: supple Lungs: clear to auscultation bilaterally Heart: regular rate and rhythm, no murmurs Abd: soft, non-tender, non-distended, bowel sounds audible Ext: no edema Skin: warm/well-perfused Neuro: Moving all 4 extremities, speech clear. Psych: impaired insight Objective Data Active Medications Acetaminophen (Acetaminophen 325 Mg Tablet) 650 mg PO Q6H PRN PRN Reason: Pain, Mild (Pain Scale 1-3) Last Admin: 09/15/23 11:48 Dose: 650 mg Documented By: DIMAS Atorvastatin Calcium (Atorvastatin Calcium 20 Mg Tablet) 20 mg PO DAILY [facility] Last Admin: 09/23/23 08:23 Dose: 20 mg Documented By: MERA Dextrose (Dextrose 50 % 25 Gm/50 Ml Syringe) 25 gm IVPUSH Q15M PRN; Protocol PRN Reason: per Hypoglycemia Standing Ord. Escitalopram Oxalate (Escitalopram Oxalate 10 Mg Tablet) 10 mg PO DAILY [facility] Last Admin: 09/23/23 08:23 Dose: 10 mg Documented By: MERA Finasteride (Finasteride 5 Mg Tablet) 5 mg PO DAILY [facility] Last Admin: 09/23/23 08:24 Dose: 5 mg Documented By: MERA Glucose (Glucose Gel 15 Gm Gel..Gram.) 15 gm PO Q15M PRN; Protocol PRN Reason: per Hypoglycemia Standing Ord. Guaifenesin/Dextromethorphan (Guaifenesin Dm 100/10/5 Ml 5 Ml Syrup) 10 ml PO Q6H PRN PRN Reason: cough Heparin Sodium (Porcine) (Heparin Sodium,Porcine 5,000 Unit/Ml Vial) 5,000 unit SUBCUT Q12H [facility] Last Admin: 09/24/23 00:15 Dose: 5,000 unit Documented By: LIGIA Insulin Glargine (Insulin Glargine,Hum.Rec.Anlog 100 Unit/Ml 10 Ml Vial) 25 unit SUBCUT BEDTIME [facility] Last Admin: 09/23/23 21:43 Dose: 25 unit Documented By: LIZA Insulin Human Lispro (Insulin Lispro 100 Unit/Ml 3 Ml Vial) 0 unit SUBCUT QIDACHS [facility]; Protocol Last Admin: 09/24/23 08:32 Dose: Not Given Documented By: ISAEL Non-Admin Reason: See Note Losartan Potassium (Losartan Potassium 25 Mg Tablet) 25 mg PO DAILY [facility]; Protocol Last Admin: 09/23/23 08:23 Dose: 25 mg Documented By: MERA Metformin HCl (Metformin Hcl 1,000 Mg Tablet) 1,000 mg PO BIDWM [facility] Last Admin: 09/23/23 17:00 Dose: 1,000 mg Documented By: MERA Ondansetron HCl (Ondansetron Hcl 4 Mg/2 Ml Vial) 4 mg IVPUSH Q8H PRN PRN Reason: Nausea and Vomiting Quetiapine Fumarate (Quetiapine Fumarate 50 Mg Tablet) 50 mg PO BEDTIME [facility] Last Admin: 09/23/23 21:43 Dose: 50 mg Documented By: LIZA Labs 09/19/23 08:34 09/19/23 08:34 Labs: Laboratory Results - last 24 hr 09/23/23 09/23/23 09/23/23 11:16 16:20 20:25 POC Glucose 207 H 121 H 136 H 09/24/23 07:31 POC Glucose 115 Assessment and Plan (1) Major neurocognitive disorder due to another medical condition: Status: Acute Plan 73yo M who originally presented to ED 07/26/23 with suicidal ideation that he subsequently denied. Found to have no competency so guardianship is being pursued febrile 09/09/23 and tested positive for Covid-19 Covid-19 infection finished course of remdesivir, oxygenation stable on room air dementia unspecified on escitalopram, and quetiapine HTN stable blood pressure on losartan DM2 stable blood sugars at a.m., continue MTF, glargine and insulin sliding scale HLD LDL 58, total cholesterol 115, on Lipitor 40 mg daily , dose decreased to lipitor 20 mg and recommend repeat labs in November /december. BPH finasteride VTE ppx UFH dispo LTC In my clinical judgment, the patient requires continued inpatient hospitalization for the following reasons: placement Quality Stroke Does the patient have a stroke diagnosis?: No VTE Prior VTE?: No VTE Risk Level:: Medical - moderate - high VTE Device Contraindication: Treatment Not Tolerated VTE Drug Contraindication: N/A - Med Ordered
[2023-09-24] MEDS: Finasteride 5 MG TABLET PO (09:00)
[2023-09-24] MEDS: metFORMIN HCl 1,000 MG TABLET 1000 MG PO ×2 (09:00→16:39)
[2023-09-24] MEDS: Escitalopram Oxalate 10 MG TABLET PO (09:00)
[2023-09-24] MEDS: Losartan Potassium 25 MG TABLET PO (09:00)
[2023-09-24] MEDS: Atorvastatin Calcium 20 MG TABLET PO (09:00)
[2023-09-24 09:07] VITALS: PULSE 61
[2023-09-24 11:34] LABS: Glucose, Whole Blood 163 mg/dL (60-115)
--- NOTE | 2023-09-24 11:41 | MHC.CM.PN ---
PATIENT AWAITING LTC PLACEMENT. THIS CM SPOKE WITH [facility] ON 09/23. PER [employer] COUNSELOR THE OFFICE STILL DOES NOT HAVE BANK ACCOUNT/PROPERTY INFORMATION. OFFICE DID SUBMIT A [employer] LUIS WITH A REQUEST FOR INFORMATION, THEY ARE UNSURE OF THE DATE SUBMITTED. CM WILL AWAIT REQUIRED FINANCIAL INFORMATION PRIOR TO PLACING LTC REFERRALS.
[2023-09-24] MEDS: Insulin Lispro 100 UNIT/ML 3 ML VIAL SUBCUT ×2 (11:48→20:23)
--- NOTE | 2023-09-24 14:33 | HO.WOUND ---
Wound Consult: Initial 73yr old? M admitted to [facility] on 08/12/23 - See progress notes and H&P for detailed history.? Wound consult placed for Boggy heels. ? Patient agreeable to assessment and photo documentation.? Bilateral heels assessed - clean dry and intact pink pigmentation noted however blanchable throughout no pressure injury noted. Heels were not assessed to be boggy or fluctuant - no injury noted. Preventative measure should continue to be placed. Foam applied to bilateral heels, elevated off of recliner surface with use of pillows - heelcare boots at bedside - no on while up to chair maybe reapplied once returns to bed. Left Heel - intact Right Heel Intact small areas of pink remains intact and blanches Recommendations: 1. Turn and Reposition every 2 hours and as needed for patient comfort.? Use pillows or wedges to support off loading positions. 2. Off Load all bony prominences with use of pillows and heel boots if needed.? Apply Preventative foams where needed. ? 3. Monitor for incontinence and moisture control, use barrier creams when needed for prevention and treatment. 4.Order or Continue low air loss mattress. 5. Bilateral Heels - Routine cleansing. Apply foam dressing for preventions labled with P . Peel back and assess Q shift and change every 3 days. Off load heels from surface of bed with pillows or heel care boots. Re-consult wound care Nurse for wound deterioration or wound changes.
[2023-09-24 15:39] VITALS: BP 103/55; PULSE 74; RESP 17; TEMP 35.9; O2SAT 96
[2023-09-24 16:09] LABS: Glucose, Whole Blood 134 mg/dL (60-115)
[2023-09-24 19:34] VITALS: BP 125/58; PULSE 67; RESP 18; TEMP 36.4; O2SAT 96
[2023-09-24 20:06] LABS: Glucose, Whole Blood 158 mg/dL (60-115)
[2023-09-24] MEDS: Insulin Glargine,Hum.rec.anlog 100 UNIT/ML 10 ML VIAL 25 UNIT SUBCUT (20:23)
[2023-09-24] MEDS: QUEtiapine Fumarate 50 MG TABLET PO (20:23)
[2023-09-25] MEDS: Heparin Sodium,Porcine 5,000 UNIT/ML VIAL 5000 UNIT SUBCUT ×3 (01:04→23:29)
[2023-09-25 03:16] VITALS: BP 114/56; PULSE 69; RESP 18; TEMP 36.2; O2SAT 95
[2023-09-25 07:37] VITALS: BP 113/58; PULSE 64; RESP 16; TEMP 36.1; O2SAT 95
[2023-09-25 07:49] LABS: Glucose, Whole Blood 115 mg/dL (60-115)
[2023-09-25] MEDS: metFORMIN HCl 1,000 MG TABLET 1000 MG PO ×2 (08:33→16:33)
[2023-09-25] MEDS: Escitalopram Oxalate 10 MG TABLET PO (08:33)
[2023-09-25] MEDS: Losartan Potassium 25 MG TABLET PO (08:33)
[2023-09-25] MEDS: Finasteride 5 MG TABLET PO (08:33)
[2023-09-25] MEDS: Atorvastatin Calcium 20 MG TABLET PO (08:33)
--- NOTE | 2023-09-25 09:38 | P.PNIM_ITS ---
Subjective Subjective Date of Service: 09/25/23 Interval History: Being followed for placement Legally blind Offers no acute complaints this morning tolerating diet with no nausea, no vomiting, no abdominal pain, no acute events overnight. Review of Systems All other system reviewed and negative Physical Exam 2 Vital Signs: Vital Signs: Last Vital Signs Temp 96.9 F 09/25/23 07:37 Pulse 64 09/25/23 07:37 Resp 16 09/25/23 07:37 BP 113/58 L 09/25/23 07:37 Pulse Ox 95 09/25/23 07:37 O2 Del Method Room Air 09/25/23 07:37 BMI result Body Mass Index 24.0 Const: Other: Gen: in no acute distress, legally blind Neck: supple Lungs: clear to auscultation bilaterally Heart: regular rate and rhythm, no murmurs Abd: soft, non-tender, non-distended, bowel sounds audible Ext: no edema Skin: warm/well-perfused Neuro: Moving all 4 extremities, speech clear. Psych: impaired insight Objective Data Active Medications Acetaminophen (Acetaminophen 325 Mg Tablet) 650 mg PO Q6H PRN PRN Reason: Pain, Mild (Pain Scale 1-3) Last Admin: 09/15/23 11:48 Dose: 650 mg Documented By: DIMAS Atorvastatin Calcium (Atorvastatin Calcium 20 Mg Tablet) 20 mg PO DAILY [facility] Last Admin: 09/25/23 08:33 Dose: 20 mg Documented By: DENISSE Dextrose (Dextrose 50 % 25 Gm/50 Ml Syringe) 25 gm IVPUSH Q15M PRN; Protocol PRN Reason: per Hypoglycemia Standing Ord. Escitalopram Oxalate (Escitalopram Oxalate 10 Mg Tablet) 10 mg PO DAILY [facility] Last Admin: 09/25/23 08:33 Dose: 10 mg Documented By: DENISSE Finasteride (Finasteride 5 Mg Tablet) 5 mg PO DAILY [facility] Last Admin: 09/25/23 08:33 Dose: 5 mg Documented By: DENISSE Glucose (Glucose Gel 15 Gm Gel..Gram.) 15 gm PO Q15M PRN; Protocol PRN Reason: per Hypoglycemia Standing Ord. Guaifenesin/Dextromethorphan (Guaifenesin Dm 100/10/5 Ml 5 Ml Syrup) 10 ml PO Q6H PRN PRN Reason: cough Heparin Sodium (Porcine) (Heparin Sodium,Porcine 5,000 Unit/Ml Vial) 5,000 unit SUBCUT Q12H [facility] Last Admin: 09/25/23 01:04 Dose: 5,000 unit Documented By: LIGIA Insulin Glargine (Insulin Glargine,Hum.Rec.Anlog 100 Unit/Ml 10 Ml Vial) 25 unit SUBCUT BEDTIME [facility] Last Admin: 09/24/23 20:23 Dose: 25 unit Documented By: LIGIA Insulin Human Lispro (Insulin Lispro 100 Unit/Ml 3 Ml Vial) 0 unit SUBCUT QIDACHS [facility]; Protocol Last Admin: 09/25/23 07:51 Dose: Not Given Documented By: DENISSE Non-Admin Reason: No Insulin Coverage Losartan Potassium (Losartan Potassium 25 Mg Tablet) 25 mg PO DAILY [facility]; Protocol Last Admin: 09/25/23 08:33 Dose: 25 mg Documented By: DENISSE Metformin HCl (Metformin Hcl 1,000 Mg Tablet) 1,000 mg PO BIDWM [facility] Last Admin: 09/25/23 08:33 Dose: 1,000 mg Documented By: DENISSE Ondansetron HCl (Ondansetron Hcl 4 Mg/2 Ml Vial) 4 mg IVPUSH Q8H PRN PRN Reason: Nausea and Vomiting Quetiapine Fumarate (Quetiapine Fumarate 50 Mg Tablet) 50 mg PO BEDTIME [facility] Last Admin: 09/24/23 20:23 Dose: 50 mg Documented By: LIGIA Labs 09/19/23 08:34 09/19/23 08:34 Labs: Laboratory Results - last 24 hr 09/24/23 09/24/23 09/24/23 11:29 16:04 20:00 POC Glucose 163 H 134 H 158 H 09/25/23 07:40 POC Glucose 115 Assessment and Plan (1) Major neurocognitive disorder due to another medical condition: Status: Acute Plan 73yo M who originally presented to ED 07/26/23 with suicidal ideation that he subsequently denied. Found to have no competency so guardianship is being pursued febrile 09/09/23 and tested positive for Covid-19 Covid-19 infection finished course of remdesivir, oxygenation stable on room air dementia unspecified on escitalopram, and quetiapine, no behavioral issues noted HTN stable blood pressure on losartan DM2 stable blood sugars at a.m., continue MTF, glargine and insulin sliding scale HLD LDL 58, total cholesterol 115, on Lipitor 40 mg daily , dose decreased to lipitor 20 mg and recommend repeat labs in November /december. BPH finasteride VTE ppx UFH dispo LTC In my clinical judgment, the patient requires continued inpatient hospitalization for the following reasons: placement Quality Stroke Does the patient have a stroke diagnosis?: No VTE Prior VTE?: No VTE Risk Level:: Medical - moderate - high VTE Device Contraindication: Treatment Not Tolerated VTE Drug Contraindication: N/A - Med Ordered
[2023-09-25 11:25] LABS: Glucose, Whole Blood 175 mg/dL (60-115)
[2023-09-25] MEDS: Insulin Lispro 100 UNIT/ML 3 ML VIAL SUBCUT (11:48)
[2023-09-25 15:10] VITALS: BP 103/57; PULSE 73; RESP 18; TEMP 36.2; O2SAT 97
[2023-09-25 15:56] LABS: Glucose, Whole Blood 135 mg/dL (60-115)
[2023-09-25 19:35] VITALS: BP 108/55; PULSE 71; RESP 17; TEMP 36.1; O2SAT 97
[2023-09-25 19:58] LABS: Glucose, Whole Blood 120 mg/dL (60-115)
[2023-09-25] MEDS: Insulin Glargine,Hum.rec.anlog 100 UNIT/ML 10 ML VIAL 25 UNIT SUBCUT (20:15)
[2023-09-25] MEDS: QUEtiapine Fumarate 50 MG TABLET PO (20:16)
[2023-09-26 03:24] VITALS: BP 105/58; PULSE 71; RESP 18; TEMP 36.6; O2SAT 98
[2023-09-26 06:26] LABS: Creatinine Clr Calc Pharmacy 83.4; Estimated Glomerular Filt Rate > 60
[2023-09-26 07:05] VITALS: BP 108/61; PULSE 64; RESP 16; TEMP 36; O2SAT 96
[2023-09-26 07:08] LABS: Glucose, Whole Blood 143 mg/dL (60-115)
[2023-09-26] MEDS: metFORMIN HCl 1,000 MG TABLET 1000 MG PO ×2 (08:06→16:38)
[2023-09-26] MEDS: Finasteride 5 MG TABLET PO (08:06)
[2023-09-26] MEDS: Losartan Potassium 25 MG TABLET PO (08:06)
[2023-09-26] MEDS: Escitalopram Oxalate 10 MG TABLET PO (08:06)
[2023-09-26] MEDS: Atorvastatin Calcium 20 MG TABLET PO (08:06)
--- NOTE | 2023-09-26 08:40 | PC.NURSE ---
Peripheral IV access due to be changed, spoke with Connie OTTO, okay to D/C peripheral access. IV removed, Pt tolerated well, Pt oob in chair eating breakfast, no complaints of pain, respirations evenand unlabored,call davis within reach.
[2023-09-26 10:58] LABS: Glucose, Whole Blood 300 mg/dL (60-115)
[2023-09-26 11:52] LABS: Glucose, Whole Blood 213 mg/dL (60-115)
[2023-09-26] MEDS: Insulin Lispro 100 UNIT/ML 3 ML VIAL SUBCUT (11:54)
[2023-09-26] MEDS: Heparin Sodium,Porcine 5,000 UNIT/ML VIAL 5000 UNIT SUBCUT ×2 (11:54→23:39)
--- NOTE | 2023-09-26 14:30 | HO.PM.IMPN ---
Subjective Subjective Date of Service: 09/26/23 Interval History: seen and examined this morning follow up for placement no overnight events no specific complaints Review of Systems Review of Systems: Yes all other systems are reviewed and are negative Constitutional Constitutional: Denies chills and Denies fever(s) Gastrointestinal Gastrointestinal: Denies abdominal pain Physical Exam Vital Signs: Vital Signs: Last Vital Signs Temp 96.8 F 09/26/23 07:05 Pulse 64 09/26/23 07:05 Resp 16 09/26/23 07:05 BP 108/61 09/26/23 07:05 Pulse Ox 96 09/26/23 07:05 O2 Del Method Room Air 09/26/23 07:05 BMI result Body Mass Index 24.0 Const: Other: pleasantly confused General: cooperative, comfortable, no acute distress, alert and awake Nutritional Appearance: average body habitus Resp: Effort & Inspection: normal respiratory effort and able to speak in complete sentences Auscultation: clear to auscultation bilaterally Cardio: Rate: regular rate GI: Palpation (GI): Soft to palpation and nontender Extrem: Other: 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 Escitalopram Oxalate (Escitalopram Oxalate 10 Mg Tablet) 10 mg PO DAILY [facility] Last Admin: 09/26/23 08:06 Dose: 10 mg Documented By: DENISSE Finasteride (Finasteride 5 Mg Tablet) 5 mg PO DAILY [facility] Last Admin: 09/26/23 08:06 Dose: 5 mg Documented By: DENISSE Glucose (Glucose Gel 15 Gm Gel..Gram.) 15 gm PO Q15M PRN; Protocol PRN Reason: per Hypoglycemia Standing Ord. Guaifenesin/Dextromethorphan (Guaifenesin Dm 100/10/5 Ml 5 Ml Syrup) 10 ml PO Q6H PRN PRN Reason: cough Heparin Sodium (Porcine) (Heparin Sodium,Porcine 5,000 Unit/Ml Vial) 5,000 unit SUBCUT Q12H [facility] Last Admin: 09/26/23 11:54 Dose: 5,000 unit Documented By: DENISSE Insulin Glargine (Insulin Glargine,Hum.Rec.Anlog 100 Unit/Ml 10 Ml Vial) 25 unit SUBCUT BEDTIME [facility] Last Admin: 09/25/23 20:15 Dose: 25 unit Documented By: RAFA Insulin Human Lispro (Insulin Lispro 100 Unit/Ml 3 Ml Vial) 0 unit SUBCUT QIDACHS [facility]; Protocol Last Admin: 09/26/23 11:54 Dose: 4 unit Documented By: DENISSE Losartan Potassium (Losartan Potassium 25 Mg Tablet) 25 mg PO DAILY [facility]; Protocol Last Admin: 09/26/23 08:06 Dose: 25 mg Documented By: DENISSE Metformin HCl (Metformin Hcl 1,000 Mg Tablet) 1,000 mg PO BIDWM [facility] Last Admin: 09/26/23 08:06 Dose: 1,000 mg Documented By: DENISSE Ondansetron HCl (Ondansetron Hcl 4 Mg/2 Ml Vial) 4 mg IVPUSH Q8H PRN PRN Reason: Nausea and Vomiting Quetiapine Fumarate (Quetiapine Fumarate 50 Mg Tablet) 50 mg PO BEDTIME [facility] Last Admin: 09/25/23 20:16 Dose: 50 mg Documented By: RAFA Labs 09/19/23 08:34 09/26/23 05:25 Labs: Laboratory Results - last 24 hr 09/25/23 09/25/23 09/26/23 15:52 19:54 05:25 Hold Purple Top SEE NOTE Estim Creat Clear Calc 83.4 Estimated GFR > 60 POC Glucose 135 H 120 H 09/26/23 09/26/23 09/26/23 07:05 10:53 11:47 Hold Purple Top Estim Creat Clear Calc Estimated GFR POC Glucose 143 H 300 H 213 H Assessment and Plan (1) Major neurocognitive disorder due to another medical condition: Status: Acute Plan 73yo M who originally presented to ED 07/26/23 with suicidal ideation that he subsequently denied. Found to have no competency so guardianship is being pursued febrile 09/09/23 and tested positive for Covid-19 Covid-19 infection s/p isolation finished course of remdesivir, oxygenation stable on room air dementia unspecified on escitalopram, and quetiapine, no behavioral issues noted HTN stable blood pressure on losartan DM2 stable blood sugars at a.m., continue metformin, glargine and insulin sliding scale HLD LDL 58, total cholesterol 115, on Lipitor 40 mg daily , dose decreased to lipitor 20 mg and recommend repeat labs in November. BPH finasteride VTE ppx UFH dispo LTC In my clinical judgment, the patient requires continued inpatient hospitalization for the following reasons: placement Quality Stroke Does the patient have a stroke diagnosis?: No VTE Prior VTE?: No VTE Risk Level:: Medical - moderate - high VTE Device Contraindication: Treatment Not Tolerated VTE Drug Contraindication: N/A - Med Ordered
[2023-09-26 15:12] VITALS: BP 118/68; PULSE 70; RESP 18; TEMP 36.6
[2023-09-26 16:28] LABS: Glucose, Whole Blood 122 mg/dL (60-115)
[2023-09-26 19:17] VITALS: BP 105/63; PULSE 77; RESP 16; TEMP 36.4; O2SAT 94
[2023-09-26 19:21] VITALS: BP 105/59; PULSE 77; RESP 16; TEMP 36.2; O2SAT 96
[2023-09-26 19:51] LABS: Glucose, Whole Blood 150 mg/dL (60-115)
[2023-09-26] MEDS: QUEtiapine Fumarate 50 MG TABLET PO (19:59)
[2023-09-26] MEDS: Insulin Glargine,Hum.rec.anlog 100 UNIT/ML 10 ML VIAL 25 UNIT SUBCUT (20:00)
[2023-09-27 03:38] VITALS: BP 105/56; PULSE 70; RESP 16; TEMP 36.1; O2SAT 96
[2023-09-27 05:58] LABS: Hemoglobin 12.9 g/dl (14.0-18.0); Mean Corpuscular HGB Conc 34.9 g/dl (31.0-36.0); Mean Corpuscular Hemoglobin 29.5 pg (27.0-33.0); Mean Corpuscular Volume 84.7 fL (80.0-98.0); Mean Platelet Volume 9.5 fL (9.4-12.4); Platelet Count 247 X10*3/uL (160-400); Red Blood Count 4.37 X10*6/uL (4.60-5.80); Red Cell Distribution Width 12.8 % (11.0-16.0); White Blood Count 7.1 X10*3/uL (4.8-10.8)
[2023-09-27 06:19] LABS: Anion Gap 13 (12-20); Blood Urea Nitrogen 19 mg/dL (9-16); Calcium 9.3 mg/dL (8.4-10.2); Carbon Dioxide 25 mmol/L (22-29); Chloride 100 mmol/L (96-108); Creatinine Clr Calc Pharmacy 93.4; Estimated Glomerular Filt Rate > 60; Glucose Random 139 mg/dL (60-115); Potassium 3.9 mmol/L (3.3-5.1); Sodium 134 mmol/L (135-145)
[2023-09-27 07:17] VITALS: BP 101/55; PULSE 71; RESP 18; TEMP 36; O2SAT 97
[2023-09-27 07:35] LABS: Glucose, Whole Blood 148 mg/dL (60-115)
[2023-09-27] MEDS: metFORMIN HCl 1,000 MG TABLET 1000 MG PO ×2 (08:28→16:37)
[2023-09-27] MEDS: Escitalopram Oxalate 10 MG TABLET PO (08:28)
[2023-09-27] MEDS: Finasteride 5 MG TABLET PO (08:28)
[2023-09-27] MEDS: Atorvastatin Calcium 20 MG TABLET PO (08:28)
[2023-09-27] MEDS: Losartan Potassium 25 MG TABLET PO (08:30)
--- NOTE | 2023-09-27 10:28 | HO.PM.IMPN ---
Subjective Subjective Date of Service: 09/27/23 Interval History: seen and examined this morning follow up for placement no overnight events no specific complaints Review of Systems Review of Systems: Yes all other systems are reviewed and are negative Constitutional Constitutional: Denies chills and Denies fever(s) Gastrointestinal Gastrointestinal: Denies abdominal pain Physical Exam Vital Signs: Vital Signs: Last Vital Signs Temp 96.8 F 09/27/23 07:17 Pulse 71 09/27/23 07:17 Resp 18 09/27/23 07:17 BP 101/55 L 09/27/23 07:17 Pulse Ox 97 09/27/23 07:17 O2 Del Method Room Air 09/27/23 07:17 BMI result Body Mass Index 24.0 Appearing in no acute distress lung sounds are clear to auscultation heart regular rate rhythm, clear S1, S2 positive bowel sounds, abdomen is soft, nontender neuro patient is alert x3, no focal deficits Objective Data Active Medications Acetaminophen (Acetaminophen 325 Mg Tablet) 650 mg PO Q6H PRN PRN Reason: Pain, Mild (Pain Scale 1-3) Last Admin: 09/15/23 11:48 Dose: 650 mg Documented By: DIMAS Atorvastatin Calcium (Atorvastatin Calcium 20 Mg Tablet) 20 mg PO DAILY [facility] Last Admin: 09/27/23 08:28 Dose: 20 mg Documented By: SERENA Dextrose (Dextrose 50 % 25 Gm/50 Ml Syringe) 25 gm IVPUSH Q15M PRN; Protocol PRN Reason: per Hypoglycemia Standing Ord. Escitalopram Oxalate (Escitalopram Oxalate 10 Mg Tablet) 10 mg PO DAILY [facility] Last Admin: 09/27/23 08:28 Dose: 10 mg Documented By: SERENA Finasteride (Finasteride 5 Mg Tablet) 5 mg PO DAILY [facility] Last Admin: 09/27/23 08:28 Dose: 5 mg Documented By: SERENA Glucose (Glucose Gel 15 Gm Gel..Gram.) 15 gm PO Q15M PRN; Protocol PRN Reason: per Hypoglycemia Standing Ord. Guaifenesin/Dextromethorphan (Guaifenesin Dm 100/10/5 Ml 5 Ml Syrup) 10 ml PO Q6H PRN PRN Reason: cough Heparin Sodium (Porcine) (Heparin Sodium,Porcine 5,000 Unit/Ml Vial) 5,000 unit SUBCUT Q12H [facility] Last Admin: 09/26/23 23:39 Dose: 5,000 unit Documented By: RADHA Insulin Glargine (Insulin Glargine,Hum.Rec.Anlog 100 Unit/Ml 10 Ml Vial) 25 unit SUBCUT BEDTIME [facility] Last Admin: 09/26/23 20:00 Dose: 25 unit Documented By: RADHA Insulin Human Lispro (Insulin Lispro 100 Unit/Ml 3 Ml Vial) 0 unit SUBCUT QIDACHS REPLACED BY [facility]; Protocol Last Admin: 09/27/23 08:29 Dose: Not Given Documented By: SERENA Non-Admin Reason: No Insulin Coverage Losartan Potassium (Losartan Potassium 25 Mg Tablet) 25 mg PO DAILY [facility]; Protocol Last Admin: 09/27/23 08:30 Dose: 25 mg Documented By: SERENA Metformin HCl (Metformin Hcl 1,000 Mg Tablet) 1,000 mg PO BIDWM REPLACED BY [facility] Last Admin: 09/27/23 08:28 Dose: 1,000 mg Documented By: SERENA Ondansetron HCl (Ondansetron Hcl 4 Mg/2 Ml Vial) 4 mg IVPUSH Q8H PRN PRN Reason: Nausea and Vomiting Quetiapine Fumarate (Quetiapine Fumarate 50 Mg Tablet) 50 mg PO BEDTIME [facility] Last Admin: 09/26/23 19:59 Dose: 50 mg Documented By: RADHA Labs 09/27/23 05:30 09/27/23 05:30 Labs: Laboratory Results - last 24 hr 09/26/23 09/26/23 09/26/23 10:53 11:47 16:24 MCV MCH MCHC RDW Plt Count MPV Absolute Nucleated RBC Nucleated RBC % (auto) Anion Gap Estim Creat Clear Calc Estimated GFR POC Glucose 300 H 213 H 122 H Random Glucose Calcium 09/26/23 09/27/23 09/27/23 19:45 05:30 07:18 MCV 84.7 MCH 29.5 MCHC 34.9 RDW 12.8 Plt Count 247 MPV 9.5 Absolute Nucleated RBC 0.000 Nucleated RBC % (auto) 0.0 Anion Gap 13 Estim Creat Clear Calc 93.4 Estimated GFR > 60 POC Glucose 150 H 148 H Random Glucose 139 H Calcium 9.3 D Assessment and Plan (1) Major neurocognitive disorder due to another medical condition: Status: Acute Plan 73yo M who originally presented to ED 07/26/23 with suicidal ideation that he subsequently denied. Found to have no competency so guardianship is being pursued febrile 09/09/23 and tested positive for Covid-19 Covid-19 infection s/p isolation finished course of remdesivir, oxygenation stable on room air dementia unspecified on escitalopram, and quetiapine, no behavioral issues noted HTN stable blood pressure on losartan DM2 stable blood sugars at a.m., continue metformin, glargine and insulin sliding scale HLD LDL 58, total cholesterol 115, on Lipitor 40 mg daily , dose decreased to lipitor 20 mg and recommend repeat labs in November /december. BPH finasteride VTE ppx UFH dispo LTC Atending Dr. Shepard In my clinical judgment, the patient requires continued inpatient hospitalization for the following reasons: placement Quality Stroke Does the patient have a stroke diagnosis?: No VTE Prior VTE?: No VTE Risk Level:: Medical - moderate - high VTE Device Contraindication: Treatment Not Tolerated VTE Drug Contraindication: N/A - Med Ordered
[2023-09-27 11:14] LABS: Glucose, Whole Blood 275 mg/dL (60-115)
[2023-09-27] MEDS: Heparin Sodium,Porcine 5,000 UNIT/ML VIAL 5000 UNIT SUBCUT (11:38)
[2023-09-27] MEDS: Insulin Lispro 100 UNIT/ML 3 ML VIAL SUBCUT ×2 (11:38→16:36)
[2023-09-27 15:45] VITALS: BP 106/59; PULSE 72; RESP 20; TEMP 36.4; O2SAT 97
[2023-09-27 16:29] LABS: Glucose, Whole Blood 156 mg/dL (60-115)
[2023-09-27 19:46] VITALS: BP 106/57; PULSE 72; RESP 18; TEMP 36.4; O2SAT 98
[2023-09-27 20:01] VITALS: BP 124/75; PULSE 90; RESP 20; TEMP 36.4; O2SAT 97
[2023-09-27] MEDS: Insulin Glargine,Hum.rec.anlog 100 UNIT/ML 10 ML VIAL 25 UNIT SUBCUT (20:16)
[2023-09-27] MEDS: QUEtiapine Fumarate 50 MG TABLET PO (20:16)
[2023-09-27 20:46] LABS: Glucose, Whole Blood 128 mg/dL (60-115)
[2023-09-28] MEDS: Heparin Sodium,Porcine 5,000 UNIT/ML VIAL 5000 UNIT SUBCUT ×2 (00:13→13:06)
[2023-09-28 03:28] VITALS: BP 120/62; PULSE 73; RESP 16; TEMP 36.3; O2SAT 97
--- NOTE | 2023-09-28 07:16 | P.PNIM_ITS ---
Subjective Subjective Date of Service: 09/28/23 Interval History: seen and examined this morning follow up for placement no overnight events no specific complaints Review of Systems Review of Systems: Yes all other systems are reviewed and are negative Constitutional Constitutional: Denies chills and Denies fever(s) Gastrointestinal Gastrointestinal: Denies abdominal pain Physical Exam 2 Vital Signs: Vital Signs: Last Vital Signs Temp 97.3 F 09/28/23 03:28 Pulse 73 09/28/23 03:28 Resp 16 09/28/23 03:28 BP 120/62 09/28/23 03:28 Pulse Ox 97 09/28/23 03:28 O2 Del Method Room Air 09/28/23 03:28 BMI result Body Mass Index 24.0 alert and confused abd soft LSCTA Objective Data Active Medications Acetaminophen (Acetaminophen 325 Mg Tablet) 650 mg PO Q6H PRN PRN Reason: Pain, Mild (Pain Scale 1-3) Last Admin: 09/15/23 11:48 Dose: 650 mg Documented By: DIMAS Atorvastatin Calcium (Atorvastatin Calcium 20 Mg Tablet) 20 mg PO DAILY [facility] Last Admin: 09/27/23 08:28 Dose: 20 mg Documented By: SERENA Dextrose (Dextrose 50 % 25 Gm/50 Ml Syringe) 25 gm IVPUSH Q15M PRN; Protocol PRN Reason: per Hypoglycemia Standing Ord. Escitalopram Oxalate (Escitalopram Oxalate 10 Mg Tablet) 10 mg PO DAILY [facility] Last Admin: 09/27/23 08:28 Dose: 10 mg Documented By: SERENA Finasteride (Finasteride 5 Mg Tablet) 5 mg PO DAILY [facility] Last Admin: 09/27/23 08:28 Dose: 5 mg Documented By: SERENA Glucose (Glucose Gel 15 Gm Gel..Gram.) 15 gm PO Q15M PRN; Protocol PRN Reason: per Hypoglycemia Standing Ord. Guaifenesin/Dextromethorphan (Guaifenesin Dm 100/10/5 Ml 5 Ml Syrup) 10 ml PO Q6H PRN PRN Reason: cough Heparin Sodium (Porcine) (Heparin Sodium,Porcine 5,000 Unit/Ml Vial) 5,000 unit SUBCUT Q12H [facility] Last Admin: 09/28/23 00:13 Dose: 5,000 unit Documented By: RADHA Insulin Glargine (Insulin Glargine,Hum.Rec.Anlog 100 Unit/Ml 10 Ml Vial) 25 unit SUBCUT BEDTIME [facility] Last Admin: 09/27/23 20:16 Dose: 25 unit Documented By: RADHA Insulin Human Lispro (Insulin Lispro 100 Unit/Ml 3 Ml Vial) 0 unit SUBCUT QIDACHS [facility]; Protocol Last Admin: 09/27/23 20:53 Dose: Not Given Documented By: RADHA Non-Admin Reason: No Insulin Coverage Losartan Potassium (Losartan Potassium 25 Mg Tablet) 25 mg PO DAILY [facility]; Protocol Last Admin: 09/27/23 08:30 Dose: 25 mg Documented By: SERENA Metformin HCl (Metformin Hcl 1,000 Mg Tablet) 1,000 mg PO BIDWM [facility] Last Admin: 09/27/23 16:37 Dose: 1,000 mg Documented By: SERENA Ondansetron HCl (Ondansetron Hcl 4 Mg/2 Ml Vial) 4 mg IVPUSH Q8H PRN PRN Reason: Nausea and Vomiting Quetiapine Fumarate (Quetiapine Fumarate 50 Mg Tablet) 50 mg PO BEDTIME [facility] Last Admin: 09/27/23 20:16 Dose: 50 mg Documented By: RADHA Labs 09/27/23 05:30 09/27/23 05:30 Labs: Laboratory Results - last 24 hr 09/27/23 09/27/23 09/27/23 07:18 11:10 16:24 POC Glucose 148 H 275 H 156 H 09/27/23 20:42 POC Glucose 128 H Assessment and Plan (1) Major neurocognitive disorder due to another medical condition: Status: Acute Plan 73yo M who originally presented to ED 07/26/23 with suicidal ideation that he subsequently denied. Found to have no competency so guardianship is being pursued febrile 09/09/23 and tested positive for Covid-19 s/p Covid-19 infection s/p isolation finished course of remdesivir oxygenation stable on room air dementia unspecified on escitalopram, and quetiapine no behavioral issues noted HTN stable blood pressure on losartan DM2 stable blood sugars at a.m. continue metformin, glargine and insulin sliding scale HLD LDL 58, total cholesterol 115, on Lipitor 40 mg daily dose decreased to lipitor 20 mg and recommend repeat labs in November. BPH finasteride VTE ppx UFH dispo LTC Atending Dr. Shepard In my clinical judgment, the patient requires continued inpatient hospitalization for the following reasons: placement Quality Stroke Does the patient have a stroke diagnosis?: No VTE Prior VTE?: No VTE Risk Level:: Medical - moderate - high VTE Device Contraindication: Treatment Not Tolerated VTE Drug Contraindication: N/A - Med Ordered
[2023-09-28 07:21] VITALS: BP 114/57; PULSE 69; RESP 18; TEMP 36.5; O2SAT 97
[2023-09-28 07:25] LABS: Glucose, Whole Blood 124 mg/dL (60-115)
[2023-09-28] MEDS: Finasteride 5 MG TABLET PO (08:14)
[2023-09-28] MEDS: Atorvastatin Calcium 20 MG TABLET PO (08:14)
[2023-09-28] MEDS: Escitalopram Oxalate 10 MG TABLET PO (08:14)
[2023-09-28] MEDS: metFORMIN HCl 1,000 MG TABLET 1000 MG PO ×2 (08:14→17:07)
[2023-09-28] MEDS: Losartan Potassium 25 MG TABLET PO (08:14)
[2023-09-28 11:25] LABS: Glucose, Whole Blood 147 mg/dL (60-115)
[2023-09-28 15:03] VITALS: BP 101/55; PULSE 73; RESP 20; TEMP 36.6; O2SAT 97
[2023-09-28 16:42] LABS: Glucose, Whole Blood 170 mg/dL (60-115)
[2023-09-28] MEDS: Insulin Lispro 100 UNIT/ML 3 ML VIAL SUBCUT (17:07)
[2023-09-28 19:50] VITALS: BP 103/53; PULSE 70; RESP 20; TEMP 36.4; O2SAT 97
[2023-09-28 20:13] LABS: Glucose, Whole Blood 127 mg/dL (60-115)
[2023-09-28] MEDS: QUEtiapine Fumarate 50 MG TABLET PO (20:16)
[2023-09-28] MEDS: Insulin Glargine,Hum.rec.anlog 100 UNIT/ML 10 ML VIAL 25 UNIT SUBCUT (20:17)
[2023-09-29] MEDS: Heparin Sodium,Porcine 5,000 UNIT/ML VIAL 5000 UNIT SUBCUT ×2 (00:04→12:01)
[2023-09-29 04:00] VITALS: BP 104/56; PULSE 71; RESP 16; TEMP 36.6; O2SAT 98
--- NOTE | 2023-09-29 07:12 | P.PNIM_ITS ---
Subjective Subjective Date of Service: 09/29/23 Interval History: seen and examined this morning follow up for placement no overnight events no specific complaints Review of Systems Review of Systems: Yes all other systems are reviewed and are negative Constitutional Constitutional: Denies chills and Denies fever(s) Gastrointestinal Gastrointestinal: Denies abdominal pain Physical Exam 2 Vital Signs: Vital Signs: Last Vital Signs Temp 97.9 F 09/29/23 04:00 Pulse 71 09/29/23 04:00 Resp 16 09/29/23 04:00 BP 104/56 L 09/29/23 04:00 Pulse Ox 98 09/29/23 04:00 O2 Del Method Room Air 09/29/23 04:00 BMI result Body Mass Index 24.0 alert and confused abd soft LSCTA Objective Data Active Medications Acetaminophen (Acetaminophen 325 Mg Tablet) 650 mg PO Q6H PRN PRN Reason: Pain, Mild (Pain Scale 1-3) Last Admin: 09/15/23 11:48 Dose: 650 mg Documented By: DIMAS Atorvastatin Calcium (Atorvastatin Calcium 20 Mg Tablet) 20 mg PO DAILY [facility] Last Admin: 09/28/23 08:14 Dose: 20 mg Documented By: MARIELLE Dextrose (Dextrose 50 % 25 Gm/50 Ml Syringe) 25 gm IVPUSH Q15M PRN; Protocol PRN Reason: per Hypoglycemia Standing Ord. Escitalopram Oxalate (Escitalopram Oxalate 10 Mg Tablet) 10 mg PO DAILY [facility] Last Admin: 09/28/23 08:14 Dose: 10 mg Documented By: MARIELLE Finasteride (Finasteride 5 Mg Tablet) 5 mg PO DAILY [facility] Last Admin: 09/28/23 08:14 Dose: 5 mg Documented By: MARIELLE Glucose (Glucose Gel 15 Gm Gel..Gram.) 15 gm PO Q15M PRN; Protocol PRN Reason: per Hypoglycemia Standing Ord. Guaifenesin/Dextromethorphan (Guaifenesin Dm 100/10/5 Ml 5 Ml Syrup) 10 ml PO Q6H PRN PRN Reason: cough Heparin Sodium (Porcine) (Heparin Sodium,Porcine 5,000 Unit/Ml Vial) 5,000 unit SUBCUT Q12H [facility] Last Admin: 09/29/23 00:04 Dose: 5,000 unit Documented By: HELENARISDaniel Insulin Glargine (Insulin Glargine,Hum.Rec.Anlog 100 Unit/Ml 10 Ml Vial) 25 unit SUBCUT BEDTIME [facility] Last Admin: 09/28/23 20:17 Dose: 25 unit Documented By: RADHA Insulin Human Lispro (Insulin Lispro 100 Unit/Ml 3 Ml Vial) 0 unit SUBCUT QIDACHS [facility]; Protocol Last Admin: 09/28/23 20:17 Dose: Not Given Documented By: RADHA Non-Admin Reason: No Insulin Coverage Losartan Potassium (Losartan Potassium 25 Mg Tablet) 25 mg PO DAILY [facility]; Protocol Last Admin: 09/28/23 08:14 Dose: 25 mg Documented By: MARIELLE Metformin HCl (Metformin Hcl 1,000 Mg Tablet) 1,000 mg PO BIDWM [facility] Last Admin: 09/28/23 17:07 Dose: 1,000 mg Documented By: MARIELLE Ondansetron HCl (Ondansetron Hcl 4 Mg/2 Ml Vial) 4 mg IVPUSH Q8H PRN PRN Reason: Nausea and Vomiting Quetiapine Fumarate (Quetiapine Fumarate 50 Mg Tablet) 50 mg PO BEDTIME [facility] Last Admin: 09/28/23 20:16 Dose: 50 mg Documented By: RDAHA Labs 09/27/23 05:30 09/27/23 05:30 Labs: Laboratory Results - last 24 hr 09/28/23 09/28/23 09/28/23 07:19 11:18 16:34 POC Glucose 124 H 147 H 170 H 09/28/23 20:01 POC Glucose 127 H Assessment and Plan (1) Major neurocognitive disorder due to another medical condition: Status: Acute Plan 73yo M who originally presented to ED 07/26/23 with suicidal ideation that he subsequently denied. Found to have no competency so guardianship is being pursued febrile 09/09/23 and tested positive for Covid-19 s/p Covid-19 infection s/p isolation finished course of remdesivir oxygenation stable on room air dementia unspecified on escitalopram, and quetiapine no behavioral issues noted HTN stable blood pressure on losartan DM2 stable blood sugars at a.m. continue metformin, glargine and insulin sliding scale HLD LDL 58, total cholesterol 115, on Lipitor 40 mg daily dose decreased to lipitor 20 mg and recommend repeat labs in November. BPH finasteride VTE ppx UFH dispo LTC Atending Dr. Shepard In my clinical judgment, the patient requires continued inpatient hospitalization for the following reasons: placement Quality Stroke Does the patient have a stroke diagnosis?: No VTE Prior VTE?: No VTE Risk Level:: Medical - moderate - high VTE Device Contraindication: Treatment Not Tolerated VTE Drug Contraindication: N/A - Med Ordered
[2023-09-29 07:15] VITALS: BP 109/51; PULSE 64; RESP 16; TEMP 36.1; O2SAT 94
[2023-09-29 07:22] LABS: Glucose, Whole Blood 87 mg/dL (60-115)
[2023-09-29] MEDS: Losartan Potassium 25 MG TABLET PO (08:40)
[2023-09-29] MEDS: Finasteride 5 MG TABLET PO (08:41)
[2023-09-29] MEDS: Atorvastatin Calcium 20 MG TABLET PO (08:41)
[2023-09-29] MEDS: Escitalopram Oxalate 10 MG TABLET PO (08:41)
[2023-09-29] MEDS: metFORMIN HCl 1,000 MG TABLET 1000 MG PO ×2 (08:41→17:13)
--- NOTE | 2023-09-29 10:57 | MHC.CM.PN ---
DC PLAN REMAINS LTC. [facility] CONTINUES TO IN[employer]STIGATE FINANCIALS. CM WILL CONTINUE TO FOLLOW.
[2023-09-29 11:21] LABS: Glucose, Whole Blood 162 mg/dL (60-115)
[2023-09-29] MEDS: Insulin Lispro 100 UNIT/ML 3 ML VIAL SUBCUT (12:00)
[2023-09-29 15:54] VITALS: BP 96/53; PULSE 71; RESP 20; TEMP 36.5; O2SAT 97
[2023-09-29 16:33] LABS: Glucose, Whole Blood 127 mg/dL (60-115)
[2023-09-29 19:13] VITALS: BP 102/56; PULSE 69; RESP 18; TEMP 36.6; O2SAT 98
[2023-09-29] MEDS: QUEtiapine Fumarate 50 MG TABLET PO (20:57)
[2023-09-29] MEDS: Insulin Glargine,Hum.rec.anlog 100 UNIT/ML 10 ML VIAL 25 UNIT SUBCUT (20:57)
[2023-09-29 20:59] LABS: Glucose, Whole Blood 148 mg/dL (60-115)
[2023-09-30] MEDS: Heparin Sodium,Porcine 5,000 UNIT/ML VIAL 5000 UNIT SUBCUT ×2 (00:11→11:48)
[2023-09-30 04:00] VITALS: BP 122/68; PULSE 61; RESP 16; TEMP 36.1; O2SAT 99
[2023-09-30 07:36] LABS: Glucose, Whole Blood 117 mg/dL (60-115)
[2023-09-30 07:56] VITALS: BP 106/67; PULSE 70; RESP 18; TEMP 37; O2SAT 97
[2023-09-30] MEDS: Finasteride 5 MG TABLET PO (08:29)
[2023-09-30] MEDS: Escitalopram Oxalate 10 MG TABLET PO (08:29)
[2023-09-30] MEDS: metFORMIN HCl 1,000 MG TABLET 1000 MG PO ×2 (08:29→16:42)
[2023-09-30] MEDS: Atorvastatin Calcium 20 MG TABLET PO (08:29)
[2023-09-30] MEDS: Losartan Potassium 25 MG TABLET PO (08:29)
--- NOTE | 2023-09-30 10:44 | HO.PM.IMPN ---
Subjective Subjective Date of Service: 09/30/23 Interval History: seen and examined this morning follow up for placement no overnight events no specific complaints Review of Systems Review of Systems: Yes all other systems are reviewed and are negative Constitutional Constitutional: Denies chills and Denies fever(s) Gastrointestinal Gastrointestinal: Denies abdominal pain Physical Exam Vital Signs: Vital Signs: Last Vital Signs Temp 98.6 F 09/30/23 07:56 Pulse 70 09/30/23 07:56 Resp 18 09/30/23 07:56 BP 106/67 09/30/23 07:56 Pulse Ox 97 09/30/23 07:56 O2 Del Method Room Air 09/30/23 07:56 BMI result Body Mass Index 24.0 Alert and confused Abd soft LSCTA Objective Data Active Medications Acetaminophen (Acetaminophen 325 Mg Tablet) 650 mg PO Q6H PRN PRN Reason: Pain, Mild (Pain Scale 1-3) Last Admin: 09/15/23 11:48 Dose: 650 mg Documented By: DIMAS Atorvastatin Calcium (Atorvastatin Calcium 20 Mg Tablet) 20 mg PO DAILY [facility] Last Admin: 09/30/23 08:29 Dose: 20 mg Documented By: WALT Dextrose (Dextrose 50 % 25 Gm/50 Ml Syringe) 25 gm IVPUSH Q15M PRN; Protocol PRN Reason: per Hypoglycemia Standing Ord. Escitalopram Oxalate (Escitalopram Oxalate 10 Mg Tablet) 10 mg PO DAILY [facility] Last Admin: 09/30/23 08:29 Dose: 10 mg Documented By: WALT Finasteride (Finasteride 5 Mg Tablet) 5 mg PO DAILY [facility] Last Admin: 09/30/23 08:29 Dose: 5 mg Documented By: WALT Glucose (Glucose Gel 15 Gm Gel..Gram.) 15 gm PO Q15M PRN; Protocol PRN Reason: per Hypoglycemia Standing Ord. Guaifenesin/Dextromethorphan (Guaifenesin Dm 100/10/5 Ml 5 Ml Syrup) 10 ml PO Q6H PRN PRN Reason: cough Heparin Sodium (Porcine) (Heparin Sodium,Porcine 5,000 Unit/Ml Vial) 5,000 unit SUBCUT Q12H [facility] Last Admin: 09/30/23 00:11 Dose: 5,000 unit Documented By: ATTILA Insulin Glargine (Insulin Glargine,Hum.Rec.Anlog 100 Unit/Ml 10 Ml Vial) 25 unit SUBCUT BEDTIME [facility] Last Admin: 09/29/23 20:57 Dose: 25 unit Documented By: ATTILA Insulin Human Lispro (Insulin Lispro 100 Unit/Ml 3 Ml Vial) 0 unit SUBCUT QIDACHS [facility]; Protocol Last Admin: 09/30/23 08:30 Dose: Not Given Documented By: WALT Non-Admin Reason: No Insulin Coverage Losartan Potassium (Losartan Potassium 25 Mg Tablet) 25 mg PO DAILY [facility]; Protocol Last Admin: 09/30/23 08:29 Dose: 25 mg Documented By: WALT Metformin HCl (Metformin Hcl 1,000 Mg Tablet) 1,000 mg PO BIDWM [facility] Last Admin: 09/30/23 08:29 Dose: 1,000 mg Documented By: WALT Ondansetron HCl (Ondansetron Hcl 4 Mg/2 Ml Vial) 4 mg IVPUSH Q8H PRN PRN Reason: Nausea and Vomiting Quetiapine Fumarate (Quetiapine Fumarate 50 Mg Tablet) 50 mg PO BEDTIME [facility] Last Admin: 09/29/23 20:57 Dose: 50 mg Documented By: ATTILA Labs 09/27/23 05:30 09/27/23 05:30 Labs: Laboratory Results - last 24 hr 09/29/23 09/29/23 09/29/23 11:15 16:30 20:48 POC Glucose 162 H 127 H 148 H 09/30/23 07:24 POC Glucose 117 H Assessment and Plan (1) Major neurocognitive disorder due to another medical condition: Status: Acute Plan 73yo M who originally presented to ED 07/26/23 with suicidal ideation that he subsequently denied. Found to have no competency so guardianship is being pursued febrile 09/09/23 and tested positive for Covid-19 s/p Covid-19 infection s/p isolation finished course of remdesivir oxygenation stable on room air dementia unspecified on escitalopram, and quetiapine no behavioral issues noted HTN stable blood pressure on losartan DM2 stable blood sugars at a.m. continue metformin, glargine and insulin sliding scale HLD LDL 58, total cholesterol 115, on Lipitor 40 mg daily dose decreased to lipitor 20 mg and recommend repeat labs in November. BPH finasteride VTE ppx UFH dispo LTC Atending Dr. Mercado In my clinical judgment, the patient requires continued inpatient hospitalization for the following reasons: placement Quality Stroke Does the patient have a stroke diagnosis?: No VTE Prior VTE?: No VTE Risk Level:: Medical - moderate - high VTE Device Contraindication: Treatment Not Tolerated VTE Drug Contraindication: N/A - Med Ordered
[2023-09-30 11:18] LABS: Glucose, Whole Blood 236 mg/dL (60-115)
[2023-09-30] MEDS: Insulin Lispro 100 UNIT/ML 3 ML VIAL SUBCUT ×2 (11:48→21:03)
[2023-09-30 15:33] VITALS: BP 103/55; PULSE 75; RESP 18; TEMP 36.8; O2SAT 98
[2023-09-30 16:21] LABS: Glucose, Whole Blood 136 mg/dL (60-115)
[2023-09-30 19:03] VITALS: BP 110/55; PULSE 74; RESP 75; TEMP 36.3; O2SAT 97
[2023-09-30 19:56] LABS: Glucose, Whole Blood 153 mg/dL (60-115)
[2023-09-30] MEDS: QUEtiapine Fumarate 50 MG TABLET PO (21:03)
[2023-09-30] MEDS: Insulin Glargine,Hum.rec.anlog 100 UNIT/ML 10 ML VIAL 25 UNIT SUBCUT (21:04)
[2023-10-01] MEDS: Heparin Sodium,Porcine 5,000 UNIT/ML VIAL 5000 UNIT SUBCUT ×2 (00:16→11:55)
[2023-10-01 03:03] VITALS: BP 116/58; PULSE 70; RESP 18; TEMP 36.1; O2SAT 97
[2023-10-01 07:13] VITALS: BP 118/62; PULSE 72; RESP 20; TEMP 36.1; O2SAT 96
[2023-10-01 07:31] LABS: Glucose, Whole Blood 139 mg/dL (60-115)
[2023-10-01] MEDS: Escitalopram Oxalate 10 MG TABLET PO (08:20)
[2023-10-01] MEDS: Losartan Potassium 25 MG TABLET PO (08:20)
[2023-10-01] MEDS: Finasteride 5 MG TABLET PO (08:20)
[2023-10-01] MEDS: Atorvastatin Calcium 20 MG TABLET PO (08:20)
[2023-10-01] MEDS: metFORMIN HCl 1,000 MG TABLET 1000 MG PO ×2 (08:20→18:40)
--- NOTE | 2023-10-01 08:45 | P.PNIM_ITS ---
Subjective Subjective Date of Service: 10/01/23 Interval History: seen and examined this morning follow up for placement no overnight events no specific complaints Review of Systems Review of Systems: Yes all other systems are reviewed and are negative Constitutional Constitutional: Denies chills and Denies fever(s) Gastrointestinal Gastrointestinal: Denies abdominal pain Physical Exam 2 Vital Signs: Vital Signs: Last Vital Signs Temp 97.0 F 10/01/23 07:13 Pulse 72 10/01/23 07:13 Resp 20 10/01/23 07:13 BP 118/62 10/01/23 07:13 Pulse Ox 96 10/01/23 07:13 O2 Del Method Room Air 10/01/23 07:13 BMI result Body Mass Index 24.0 Appearing in no acute distress lung sounds are clear to auscultation heart regular rate rhythm positive bowel sounds, abdomen is soft neuro patient is alert, confused Objective Data Active Medications Acetaminophen (Acetaminophen 325 Mg Tablet) 650 mg PO Q6H PRN PRN Reason: Pain, Mild (Pain Scale 1-3) Last Admin: 09/15/23 11:48 Dose: 650 mg Documented By: DIMAS Atorvastatin Calcium (Atorvastatin Calcium 20 Mg Tablet) 20 mg PO DAILY [facility] Last Admin: 10/01/23 08:20 Dose: 20 mg Documented By: TEE Dextrose (Dextrose 50 % 25 Gm/50 Ml Syringe) 25 gm IVPUSH Q15M PRN; Protocol PRN Reason: per Hypoglycemia Standing Ord. Escitalopram Oxalate (Escitalopram Oxalate 10 Mg Tablet) 10 mg PO DAILY [facility] Last Admin: 10/01/23 08:20 Dose: 10 mg Documented By: TEE Finasteride (Finasteride 5 Mg Tablet) 5 mg PO DAILY [facility] Last Admin: 10/01/23 08:20 Dose: 5 mg Documented By: TEE Glucose (Glucose Gel 15 Gm Gel..Gram.) 15 gm PO Q15M PRN; Protocol PRN Reason: per Hypoglycemia Standing Ord. Guaifenesin/Dextromethorphan (Guaifenesin Dm 100/10/5 Ml 5 Ml Syrup) 10 ml PO Q6H PRN PRN Reason: cough Heparin Sodium (Porcine) (Heparin Sodium,Porcine 5,000 Unit/Ml Vial) 5,000 unit SUBCUT Q12H [facility] Last Admin: 10/01/23 00:16 Dose: 5,000 unit Documented By: JASON Insulin Glargine (Insulin Glargine,Hum.Rec.Anlog 100 Unit/Ml 10 Ml Vial) 25 unit SUBCUT BEDTIME [facility] Last Admin: 09/30/23 21:04 Dose: 25 unit Documented By: JASON Insulin Human Lispro (Insulin Lispro 100 Unit/Ml 3 Ml Vial) 0 unit SUBCUT QIDACHS [facility]; Protocol Last Admin: 10/01/23 07:45 Dose: Not Given Documented By: TEE Non-Admin Reason: No Insulin Coverage Losartan Potassium (Losartan Potassium 25 Mg Tablet) 25 mg PO DAILY [facility]; Protocol Last Admin: 10/01/23 08:20 Dose: 25 mg Documented By: TEE Metformin HCl (Metformin Hcl 1,000 Mg Tablet) 1,000 mg PO BIDWM [facility] Last Admin: 10/01/23 08:20 Dose: 1,000 mg Documented By: TEE Ondansetron HCl (Ondansetron Hcl 4 Mg/2 Ml Vial) 4 mg IVPUSH Q8H PRN PRN Reason: Nausea and Vomiting Quetiapine Fumarate (Quetiapine Fumarate 50 Mg Tablet) 50 mg PO BEDTIME [facility] Last Admin: 09/30/23 21:03 Dose: 50 mg Documented By: JASON Labs 09/27/23 05:30 09/27/23 05:30 Labs: Laboratory Results - last 24 hr 09/30/23 09/30/23 09/30/23 11:06 16:15 19:45 POC Glucose 236 H 136 H 153 H 10/01/23 07:19 POC Glucose 139 H Assessment and Plan (1) Major neurocognitive disorder due to another medical condition: Status: Acute Plan 73yo M who originally presented to ED 07/26/23 with suicidal ideation that he subsequently denied. Found to have no competency so guardianship is being pursued febrile 09/09/23 and tested positive for Covid-19 s/p Covid-19 infection s/p isolation finished course of remdesivir oxygenation stable on room air check weekly labs, last 09/26 wnl dementia unspecified on escitalopram, and quetiapine no behavioral issues noted HTN stable blood pressure on losartan DM2 stable blood sugars at a.m. continue metformin, glargine and insulin sliding scale HLD LDL 58, total cholesterol 115, on Lipitor 40 mg daily dose decreased to lipitor 20 mg and recommend repeat labs in November /december. BPH finasteride VTE ppx UFH dispo [facility] Atending Dr. Mercado In my clinical judgment, the patient requires continued inpatient hospitalization for the following reasons: placement Quality Stroke Does the patient have a stroke diagnosis?: No VTE Prior VTE?: No VTE Risk Level:: Medical - moderate - high VTE Device Contraindication: Treatment Not Tolerated VTE Drug Contraindication: N/A - Med Ordered
[2023-10-01 11:27] LABS: Glucose, Whole Blood 202 mg/dL (60-115)
[2023-10-01] MEDS: Insulin Lispro 100 UNIT/ML 3 ML VIAL SUBCUT ×2 (11:55→20:33)
--- NOTE | 2023-10-01 13:33 | MHC.CM.PN ---
DC PLAN REMAINS LTC. [facility] CONTINUES TO IN[employer]STIGATE FINANCIALS. CM WILL CONTINUE TO FOLLOW.
[2023-10-01 15:37] VITALS: BP 111/55; PULSE 73; RESP 16; TEMP 36.4; O2SAT 96
[2023-10-01 16:32] LABS: Glucose, Whole Blood 144 mg/dL (60-115)
[2023-10-01 19:19] VITALS: BP 104/51; PULSE 72; RESP 18; TEMP 36; O2SAT 98
[2023-10-01 20:16] LABS: Glucose, Whole Blood 176 mg/dL (60-115)
[2023-10-01] MEDS: Insulin Glargine,Hum.rec.anlog 100 UNIT/ML 10 ML VIAL 25 UNIT SUBCUT (20:33)
[2023-10-01] MEDS: QUEtiapine Fumarate 50 MG TABLET PO (20:33)
[2023-10-02] MEDS: Heparin Sodium,Porcine 5,000 UNIT/ML VIAL 5000 UNIT SUBCUT ×3 (00:34→23:33)
[2023-10-02 03:52] VITALS: BP 111/61; PULSE 63; RESP 18; TEMP 36.8; O2SAT 97
[2023-10-02 07:04] VITALS: BP 127/69; PULSE 72; RESP 18; TEMP 36.2; O2SAT 97
[2023-10-02 07:17] LABS: Glucose, Whole Blood 139 mg/dL (60-115)
--- NOTE | 2023-10-02 07:53 | PC.NURSE ---
Foams applied today to bilateral heels for prevention.
[2023-10-02] MEDS: Losartan Potassium 25 MG TABLET PO (07:59)
[2023-10-02] MEDS: Escitalopram Oxalate 10 MG TABLET PO (07:59)
[2023-10-02] MEDS: Finasteride 5 MG TABLET PO (07:59)
[2023-10-02] MEDS: metFORMIN HCl 1,000 MG TABLET 1000 MG PO ×2 (07:59→16:21)
[2023-10-02] MEDS: Atorvastatin Calcium 20 MG TABLET PO (07:59)
[2023-10-02 11:11] LABS: Glucose, Whole Blood 205 mg/dL (60-115)
[2023-10-02] MEDS: Insulin Lispro 100 UNIT/ML 3 ML VIAL SUBCUT ×3 (11:37→21:04)
--- NOTE | 2023-10-02 14:38 | P.PNIM_ITS ---
Subjective Subjective Date of Service: 10/02/23 Interval History: seen and examined this morning follow up for placement no overnight events overnight Review of Systems Review of Systems: Yes all other systems are reviewed and are negative Constitutional Constitutional: Denies chills and Denies fever(s) Cardiovascular Cardiovascular: Reports chest pain, Denies palpitations and Denies dyspnea Respiratory Respiratory: Denies cough and Denies dyspnea Endocrine Endocrine: Denies palpitations Physical Exam 2 Vital Signs: Vital Signs: Last Vital Signs Temp 97.2 F 10/02/23 07:04 Pulse 72 10/02/23 07:04 Resp 18 10/02/23 07:04 BP 127/69 10/02/23 07:04 Pulse Ox 97 10/02/23 07:04 O2 Del Method Room Air 10/02/23 07:04 BMI result Body Mass Index 24.0 Const: Other: pleasantly confused General: cooperative, comfortable, no acute distress, alert and awake N utritional Appearance: average body habitus Resp: Effort & Inspection: normal respiratory effort, able to speak in complete sentences, no respiratory distress and no use of accessory muscles Cardio: Rate: regular rate GI: Inspection: No distended Palpation (GI): Soft to palpation and nontender Neuro: General: moves all extremities and CN's II-XI intact bilaterally Extrem: Other: 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 Escitalopram Oxalate (Escitalopram Oxalate 10 Mg Tablet) 10 mg PO DAILY [facility] Last Admin: 10/02/23 07:59 Dose: 10 mg Documented By: RODNEY Finasteride (Finasteride 5 Mg Tablet) 5 mg PO DAILY [facility] Last Admin: 10/02/23 07:59 Dose: 5 mg Documented By: RODNEY Glucose (Glucose Gel 15 Gm Gel..Gram.) 15 gm PO Q15M PRN; Protocol PRN Reason: per Hypoglycemia Standing Ord. Guaifenesin/Dextromethorphan (Guaifenesin Dm 100/10/5 Ml 5 Ml Syrup) 10 ml PO Q6H PRN PRN Reason: cough Heparin Sodium (Porcine) (Heparin Sodium,Porcine 5,000 Unit/Ml Vial) 5,000 unit SUBCUT Q12H [facility] Last Admin: 10/02/23 11:38 Dose: 5,000 unit Documented By: RODNEY Insulin Glargine (Insulin Glargine,Hum.Rec.Anlog 100 Unit/Ml 10 Ml Vial) 25 unit SUBCUT BEDTIME [facility] Last Admin: 10/01/23 20:33 Dose: 25 unit Documented By: SOMMER Insulin Human Lispro (Insulin Lispro 100 Unit/Ml 3 Ml Vial) 0 unit SUBCUT QIDACHS [facility]; Protocol Last Admin: 10/02/23 11:37 Dose: 4 unit Documented By: RODNEY Losartan Potassium (Losartan Potassium 25 Mg Tablet) 25 mg PO DAILY [facility]; Protocol Last Admin: 10/02/23 07:59 Dose: 25 mg Documented By: RODNEY Metformin HCl (Metformin Hcl 1,000 Mg Tablet) 1,000 mg PO BIDWM [facility] Last Admin: 10/02/23 07:59 Dose: 1,000 mg Documented By: RODNEY Ondansetron HCl (Ondansetron Hcl 4 Mg/2 Ml Vial) 4 mg IVPUSH Q8H PRN PRN Reason: Nausea and Vomiting Quetiapine Fumarate (Quetiapine Fumarate 50 Mg Tablet) 50 mg PO BEDTIME [facility] Last Admin: 10/01/23 20:33 Dose: 50 mg Documented By: SOMMER Labs 09/27/23 05:30 09/27/23 05:30 Labs: Laboratory Results - last 24 hr 10/01/23 10/01/23 10/02/23 16:14 20:11 07:13 POC Glucose 144 H 176 H 139 H 10/02/23 11:01 POC Glucose 205 H Assessment and Plan (1) Major neurocognitive disorder due to another medical condition: Status: Acute Plan 73yo M who originally presented to ED 07/26/23 with suicidal ideation that he subsequently denied. Found to have no competency so guardianship is being pursued febrile 09/09/23 and tested positive for Covid-19 s/p Covid-19 infection s/p isolation finished course of remdesivir oxygenation stable on room air check weekly labs, last 09/26 wnl dementia unspecified on escitalopram, and quetiapine no behavioral issues noted HTN stable blood pressure on losartan DM2 stable blood sugars at a.m. continue metformin, glargine and insulin sliding scale HLD LDL 58, total cholesterol 115, on Lipitor 40 mg daily dose decreased to lipitor 20 mg and recommend repeat labs in November /december. BPH finasteride VTE ppx UFH dispo [facility] Atending Dr. Mercado In my clinical judgment, the patient requires continued inpatient hospitalization for the following reasons: placement Quality Stroke Does the patient have a stroke diagnosis?: No VTE Prior VTE?: No VTE Risk Level:: Medical - moderate - high VTE Device Contraindication: Treatment Not Tolerated VTE Drug Contraindication: N/A - Med Ordered
[2023-10-02 15:10] VITALS: BP 104/53; PULSE 76; RESP 16; TEMP 36.3; O2SAT 96
[2023-10-02 16:13] LABS: Glucose, Whole Blood 175 mg/dL (60-115)
[2023-10-02 19:17] VITALS: BP 109/55; PULSE 72; RESP 18; TEMP 36.6; O2SAT 97
[2023-10-02] MEDS: QUEtiapine Fumarate 50 MG TABLET PO (19:28)
[2023-10-02 20:40] LABS: Glucose, Whole Blood 152 mg/dL (60-115)
[2023-10-02] MEDS: Insulin Glargine,Hum.rec.anlog 100 UNIT/ML 10 ML VIAL 25 UNIT SUBCUT (21:05)
[2023-10-03 03:50] VITALS: BP 111/61; PULSE 69; RESP 16; TEMP 36.5; O2SAT 97
[2023-10-03 06:48] LABS: Creatinine Clr Calc Pharmacy 89.8; Estimated Glomerular Filt Rate > 60
[2023-10-03 07:07] VITALS: BP 111/58; PULSE 65; RESP 18; TEMP 36.4; O2SAT 97
[2023-10-03 07:31] LABS: Glucose, Whole Blood 96 mg/dL (60-115)
[2023-10-03] MEDS: Escitalopram Oxalate 10 MG TABLET PO (07:51)
[2023-10-03] MEDS: Finasteride 5 MG TABLET PO (07:51)
[2023-10-03] MEDS: Losartan Potassium 25 MG TABLET PO (07:51)
[2023-10-03] MEDS: metFORMIN HCl 1,000 MG TABLET 1000 MG PO ×2 (07:51→17:02)
[2023-10-03] MEDS: Atorvastatin Calcium 20 MG TABLET PO (07:51)
[2023-10-03 11:32] LABS: Glucose, Whole Blood 210 mg/dL (60-115)
[2023-10-03] MEDS: Insulin Lispro 100 UNIT/ML 3 ML VIAL SUBCUT ×2 (11:47→20:31)
[2023-10-03] MEDS: Heparin Sodium,Porcine 5,000 UNIT/ML VIAL 5000 UNIT SUBCUT ×2 (11:47→22:43)
--- NOTE | 2023-10-03 12:39 | MHC.CM.PN ---
DC PLAN REMAINS LTC. [facility] CONTINUES TO IN[employer]STIGATE FINANCIALS. CM WILL CONTINUE TO FOLLOW.
[2023-10-03 15:11] VITALS: BP 99/54; PULSE 70; RESP 18; TEMP 36.2; O2SAT 97
--- NOTE | 2023-10-03 16:03 | HO.PM.IMPN ---
Subjective Subjective Date of Service: 10/03/23 Interval History: seen and examined this morning follow up for placement no overnight events feels well, no complaints Review of Systems Review of Systems: Yes all other systems are reviewed and are negative Constitutional Constitutional: Denies chills and Denies fever(s) Cardiovascular Cardiovascular: Denies chest pain Gastrointestinal Gastrointestinal: Denies abdominal pain Physical Exam Vital Signs: Vital Signs: Last Vital Signs Temp 97.2 F 10/03/23 15:11 Pulse 70 10/03/23 15:11 Resp 18 10/03/23 15:11 BP 99/54 L 10/03/23 15:11 Pulse Ox 97 10/03/23 15:11 O2 Del Method Room Air 10/03/23 15:11 BMI result Body Mass Index 24.0 Const: Other: pleasantly confused General: cooperative, comfortable, no acute distress, alert and awake Nutritional Appearance: average body habitus Resp: Effort & Inspection: normal respiratory effort, able to speak in complete sentences, no respiratory distress and no use of accessory muscles Auscultation: clear to auscultation bilaterally Cardio: Rate: regular rate GI: Inspection: No distended Palpation (GI): Soft to palpation and nontender Neuro: General: moves all extremities and CN's II-XI intact bilaterally Extrem: Other: 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 Escitalopram Oxalate (Escitalopram Oxalate 10 Mg Tablet) 10 mg PO DAILY [facility] Last Admin: 10/03/23 07:51 Dose: 10 mg Documented By: RODNEY Finasteride (Finasteride 5 Mg Tablet) 5 mg PO DAILY [facility] Last Admin: 10/03/23 07:51 Dose: 5 mg Documented By: RODNEY Glucose (Glucose Gel 15 Gm Gel..Gram.) 15 gm PO Q15M PRN; Protocol PRN Reason: per Hypoglycemia Standing Ord. Guaifenesin/Dextromethorphan (Guaifenesin Dm 100/10/5 Ml 5 Ml Syrup) 10 ml PO Q6H PRN PRN Reason: cough Heparin Sodium (Porcine) (Heparin Sodium,Porcine 5,000 Unit/Ml Vial) 5,000 unit SUBCUT Q12H [facility] Last Admin: 10/03/23 11:47 Dose: 5,000 unit Documented By: RODNEY Insulin Glargine (Insulin Glargine,Hum.Rec.Anlog 100 Unit/Ml 10 Ml Vial) 25 unit SUBCUT BEDTIME [facility] Last Admin: 10/02/23 21:05 Dose: 25 unit Documented By: LULU Insulin Human Lispro (Insulin Lispro 100 Unit/Ml 3 Ml Vial) 0 unit SUBCUT QIDACHS [facility]; Protocol Last Admin: 10/03/23 11:47 Dose: 4 unit Documented By: RODNEY Losartan Potassium (Losartan Potassium 25 Mg Tablet) 25 mg PO DAILY [facility]; Protocol Last Admin: 10/03/23 07:51 Dose: 25 mg Documented By: RODNEY Metformin HCl (Metformin Hcl 1,000 Mg Tablet) 1,000 mg PO BIDWM [facility] Last Admin: 10/03/23 07:51 Dose: 1,000 mg Documented By: RODNEY Ondansetron HCl (Ondansetron Hcl 4 Mg/2 Ml Vial) 4 mg IVPUSH Q8H PRN PRN Reason: Nausea and Vomiting Quetiapine Fumarate (Quetiapine Fumarate 50 Mg Tablet) 50 mg PO BEDTIME [facility] Last Admin: 10/02/23 19:28 Dose: 50 mg Documented By: LULU Labs 09/27/23 05:30 10/03/23 05:26 Labs: Laboratory Results - last 24 hr 10/02/23 10/02/23 10/03/23 16:10 20:33 05:26 Hold Purple Top SEE NOTE Estim Creat Clear Calc 89.8 Estimated GFR > 60 POC Glucose 175 H 152 H 10/03/23 10/03/23 07:10 11:28 Hold Purple Top Estim Creat Clear Calc Estimated GFR POC Glucose 96 210 H Assessment and Plan (1) Major neurocognitive disorder due to another medical condition: Status: Acute Plan 73yo M who originally presented to ED 07/26/23 with suicidal ideation that he subsequently denied. Found to have no competency so guardianship is being pursued febrile 09/09/23 and tested positive for Covid-19 s/p Covid-19 infection s/p isolation finished course of remdesivir oxygenation stable on room air check weekly labs, last 3/ wnl dementia unspecified on escitalopram, and quetiapine no behavioral issues noted HTN stable blood pressure on losartan DM2 stable blood sugars at a.m. continue metformin, glargine and insulin sliding scale HLD LDL 58, total cholesterol 115, on Lipitor 40 mg daily dose decreased to lipitor 20 mg and recommend repeat labs in November /december. BPH finasteride VTE ppx [facility] dispo [facility] Atending Dr. Mercado In my clinical judgment, the patient requires continued inpatient hospitalization for the following reasons: placement Quality Stroke Does the patient have a stroke diagnosis?: No VTE Prior VTE?: No VTE Risk Level:: Medical - moderate - high VTE Device Contraindication: Treatment Not Tolerated VTE Drug Contraindication: N/A - Med Ordered
[2023-10-03 16:10] LABS: Glucose, Whole Blood 113 mg/dL (60-115)
[2023-10-03 19:34] VITALS: BP 108/53; PULSE 72; RESP 18; TEMP 36.3; O2SAT 96
[2023-10-03 19:50] LABS: Glucose, Whole Blood 172 mg/dL (60-115)
[2023-10-03] MEDS: QUEtiapine Fumarate 50 MG TABLET PO (20:31)
[2023-10-03] MEDS: Insulin Glargine,Hum.rec.anlog 100 UNIT/ML 10 ML VIAL 25 UNIT SUBCUT (20:32)
[2023-10-04 03:37] VITALS: BP 110/57; PULSE 75; RESP 18; TEMP 36.1; O2SAT 96
[2023-10-04 06:48] LABS: Hematocrit 37.8 % (42.0-52.0); Hemoglobin 13.2 g/dl (14.0-18.0); Mean Corpuscular HGB Conc 34.9 g/dl (31.0-36.0); Mean Corpuscular Volume 85.9 fL (80.0-98.0); Mean Platelet Volume 9.8 fL (9.4-12.4); Platelet Count 247 X10*3/uL (160-400); White Blood Count 6.5 X10*3/uL (4.8-10.8)
[2023-10-04 06:54] LABS: Anion Gap 13 (12-20); Blood Urea Nitrogen 16 mg/dL (9-16); Calcium 9.3 mg/dL (8.4-10.2); Carbon Dioxide 27 mmol/L (22-29); Chloride 99 mmol/L (96-108); Creatinine Clr Calc Pharmacy 89.8; Estimated Glomerular Filt Rate > 60; Glucose Random 101 mg/dL (60-115); Potassium 3.9 mmol/L (3.3-5.1); Sodium 135 mmol/L (135-145)
[2023-10-04 07:24] LABS: Glucose, Whole Blood 112 mg/dL (60-115)
[2023-10-04 07:39] VITALS: BP 108/59; PULSE 66; RESP 18; TEMP 36.2; O2SAT 97
[2023-10-04] MEDS: Losartan Potassium 25 MG TABLET PO (07:52)
[2023-10-04] MEDS: Finasteride 5 MG TABLET PO (07:52)
[2023-10-04] MEDS: Atorvastatin Calcium 20 MG TABLET PO (07:52)
[2023-10-04] MEDS: Escitalopram Oxalate 10 MG TABLET PO (07:53)
[2023-10-04] MEDS: metFORMIN HCl 1,000 MG TABLET 1000 MG PO ×2 (07:53→17:15)
--- NOTE | 2023-10-04 09:53 | P.PNIM_ITS ---
Subjective Subjective Date of Service: 10/04/23 Interval History: seen and examined this morning follow up for placement no overnight events seen eating breakfast this am ; feels well, no complaints Review of Systems All other system reviewed and negative Constitutional Constitutional: Denies chills and Denies fever(s) Cardiovascular Cardiovascular: Denies chest pain, Denies palpitations and Denies dyspnea Respiratory Respiratory: Denies cough and Denies dyspnea Gastrointestinal Gastrointestinal: Denies abdominal pain, Denies nausea and Denies vomiting Endocrine Endocrine: Denies palpitations Physical Exam 2 Vital Signs: Vital Signs: Last Vital Signs Temp 97.1 F 10/04/23 07:39 Pulse 66 10/04/23 07:39 Resp 18 10/04/23 07:39 BP 108/59 L 10/04/23 07:39 Pulse Ox 97 10/04/23 07:39 O2 Del Method Room Air 10/04/23 07:39 BMI result Body Mass Index 24.0 Const: Other: pleasantly confused General: cooperative, comfortable, no acute distress, alert and awake N utritional Appearance: average body habitus Resp: Other: Clear to auscultation bilaterally no rales rhonchi or wheezes Effort & Inspection: normal respiratory effort, able to speak in complete sentences, no respiratory distress and no use of accessory muscles A uscultation: clear to auscultation bilaterally Cardio: Other: No S4; positive S1-S2; no S3 murmurs rubs or gallops Rate: regular rate GI: Other: Soft nontender nondistended bowel sounds Inspection: No distended Palpation (GI): Soft to palpation and nontender Neuro: General: moves all extremities and CN's II-XI intact bilaterally Extrem: Other: 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 Escitalopram Oxalate (Escitalopram Oxalate 10 Mg Tablet) 10 mg PO DAILY [facility] Last Admin: 10/04/23 07:53 Dose: 10 mg Documented By: DENISSE Finasteride (Finasteride 5 Mg Tablet) 5 mg PO DAILY [facility] Last Admin: 10/04/23 07:52 Dose: 5 mg Documented By: DENISSE Glucose (Glucose Gel 15 Gm Gel..Gram.) 15 gm PO Q15M PRN; Protocol PRN Reason: per Hypoglycemia Standing Ord. Guaifenesin/Dextromethorphan (Guaifenesin Dm 100/10/5 Ml 5 Ml Syrup) 10 ml PO Q6H PRN PRN Reason: cough Heparin Sodium (Porcine) (Heparin Sodium,Porcine 5,000 Unit/Ml Vial) 5,000 unit SUBCUT Q12H [facility] Last Admin: 10/03/23 22:43 Dose: 5,000 unit Documented By: WILNER Insulin Glargine (Insulin Glargine,Hum.Rec.Anlog 100 Unit/Ml 10 Ml Vial) 25 unit SUBCUT BEDTIME [facility] Last Admin: 10/03/23 20:32 Dose: 25 unit Documented By: WILNER Insulin Human Lispro (Insulin Lispro 100 Unit/Ml 3 Ml Vial) 0 unit SUBCUT QIDACHS [facility]; Protocol Last Admin: 10/04/23 07:26 Dose: Not Given Documented By: DENISSE Non-Admin Reason: No Insulin Coverage Losartan Potassium (Losartan Potassium 25 Mg Tablet) 25 mg PO DAILY [facility]; Protocol Last Admin: 10/04/23 07:52 Dose: 25 mg Documented By: DENISSE Metformin HCl (Metformin Hcl 1,000 Mg Tablet) 1,000 mg PO BIDWM [facility] Last Admin: 10/04/23 07:53 Dose: 1,000 mg Documented By: DENISSE Ondansetron HCl (Ondansetron Hcl 4 Mg/2 Ml Vial) 4 mg IVPUSH Q8H PRN PRN Reason: Nausea and Vomiting Quetiapine Fumarate (Quetiapine Fumarate 50 Mg Tablet) 50 mg PO BEDTIME [facility] Last Admin: 10/03/23 20:31 Dose: 50 mg Documented By: WILNER Labs 10/04/23 05:54 10/04/23 05:54 Labs: Laboratory Results - last 24 hr 10/03/23 10/03/23 10/03/23 11:28 16:07 19:37 MCV MCH MCHC RDW Plt Count MPV Absolute Nucleated RBC Nucleated RBC % (auto) Anion Gap Estim Creat Clear Calc Estimated GFR POC Glucose 210 H 113 172 H Random Glucose Calcium 10/04/23 10/04/23 05:54 07:19 MCV 85.9 MCH 30.0 MCHC 34.9 RDW 13.0 Plt Count 247 MPV 9.8 Absolute Nucleated RBC 0.000 Nucleated RBC % (auto) 0.0 Anion Gap 13 Estim Creat Clear Calc 89.8 Estimated GFR > 60 POC Glucose 112 Random Glucose 101 Calcium 9.3 Assessment and Plan (1) Major neurocognitive disorder due to another medical condition: Status: Acute Plan 73yo M who originally presented to ED 07/26/23 with suicidal ideation that he subsequently denied. Found to have no competency so guardianship is being pursued febrile 09/09/23 and tested positive for Covid-19 s/p Covid-19 infection s/p isolation finished course of remdesivir oxygenation stable on room air check weekly labs, last 10/03 wnl dementia unspecified on escitalopram, and quetiapine no behavioral issues noted HTN stable blood pressure on losartan DM2 stable blood sugars at a.m. continue metformin, glargine and insulin sliding scale HLD LDL 58, total cholesterol 115, on Lipitor 40 mg daily dose decreased to lipitor 20 mg and recommend repeat labs in November /december. BPH finasteride VTE ppx [facility]FH dispo [facility] In my clinical judgment, the patient requires continued inpatient hospitalization for the following reasons: placement Quality Stroke Does the patient have a stroke diagnosis?: No VTE Prior VTE?: No VTE Risk Level:: Medical - moderate - high VTE Device Contraindication: Treatment Not Tolerated VTE Drug Contraindication: N/A - Med Ordered
[2023-10-04] MEDS: Enoxaparin Sodium 40 MG/0.4 ML SYRINGE SUBCUT (10:26)
[2023-10-04 11:05] LABS: Glucose, Whole Blood 215 mg/dL (60-115)
[2023-10-04] MEDS: Insulin Lispro 100 UNIT/ML 3 ML VIAL SUBCUT ×2 (12:10→19:53)
[2023-10-04 15:26] VITALS: BP 107/55; PULSE 69; RESP 20; TEMP 36.6; O2SAT 97
[2023-10-04 16:44] LABS: Glucose, Whole Blood 135 mg/dL (60-115)
[2023-10-04 19:14] VITALS: BP 104/54; PULSE 73; RESP 18; TEMP 36.7; O2SAT 97
[2023-10-04 19:45] LABS: Glucose, Whole Blood 235 mg/dL (60-115)
[2023-10-04] MEDS: Insulin Glargine,Hum.rec.anlog 100 UNIT/ML 10 ML VIAL 25 UNIT SUBCUT (19:52)
[2023-10-04] MEDS: QUEtiapine Fumarate 50 MG TABLET PO (19:52)
[2023-10-05 03:11] VITALS: BP 111/60; PULSE 71; RESP 18; TEMP 36.3; O2SAT 96
[2023-10-05 07:20] VITALS: BP 103/57; PULSE 65; RESP 16; TEMP 36; O2SAT 97
[2023-10-05 07:22] LABS: Glucose, Whole Blood 127 mg/dL (60-115)
[2023-10-05] MEDS: Losartan Potassium 25 MG TABLET PO (08:41)
[2023-10-05] MEDS: Atorvastatin Calcium 20 MG TABLET PO (08:41)
[2023-10-05] MEDS: Finasteride 5 MG TABLET PO (08:41)
[2023-10-05] MEDS: metFORMIN HCl 1,000 MG TABLET 1000 MG PO ×2 (08:41→16:03)
[2023-10-05] MEDS: Escitalopram Oxalate 10 MG TABLET PO (08:41)
--- NOTE | 2023-10-05 09:30 | HO.PM.IMPN ---
Subjective Subjective Date of Service: 10/05/23 Interval History: seen and examined this morning follow up for placement no overnight events seen eating breakfast this am ; feels well, no complaints Review of Systems All other system reviewed and negative Constitutional Constitutional: Denies chills and Denies fever(s) Cardiovascular Cardiovascular: Denies chest pain, Denies palpitations and Denies dyspnea Respiratory Respiratory: Denies cough and Denies dyspnea Gastrointestinal Gastrointestinal: Denies abdominal pain, Denies nausea and Denies vomiting Endocrine Endocrine: Denies palpitations Physical Exam Vital Signs: Vital Signs: Last Vital Signs Temp 96.8 F 10/05/23 07:20 Pulse 65 10/05/23 07:20 Resp 16 10/05/23 07:20 BP 103/57 L 10/05/23 07:20 Pulse Ox 97 10/05/23 07:20 O2 Del Method Room Air 10/05/23 07:20 BMI result Body Mass Index 24.0 Const: Other: pleasantly confused General: cooperative, comfortable, no acute distress, alert and awake Nutritional Appearance: average body habitus Resp: Other: Clear to auscultation bilaterally no rales rhonchi or wheezes Effort & Inspection: normal respiratory effort, able to speak in complete sentences, no respiratory distress and no use of accessory muscles Auscultation: clear to auscultation bilaterally Cardio: Other: No S4; positive S1-S2; no S3 murmurs rubs or gallops Rate: regular rate GI: Other: Soft nontender nondistended bowel sounds Inspection: No distended Palpation (GI): Soft to palpation and nontender Neuro: General: moves all extremities and CN's II-XI intact bilaterally Extrem: Other: 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 Enoxaparin Sodium (Enoxaparin Sodium 40 Mg/0.4 Ml Syringe) 40 mg SUBCUT Q24H [facility] Last Admin: 10/04/23 10:26 Dose: 40 mg Documented By: DENISSE Escitalopram Oxalate (Escitalopram Oxalate 10 Mg Tablet) 10 mg PO DAILY [facility] Last Admin: 10/05/23 08:41 Dose: 10 mg Documented By: DENISSE Finasteride (Finasteride 5 Mg Tablet) 5 mg PO DAILY [facility] Last Admin: 10/05/23 08:41 Dose: 5 mg Documented By: DENISSE Glucose (Glucose Gel 15 Gm Gel..Gram.) 15 gm PO Q15M PRN; Protocol PRN Reason: per Hypoglycemia Standing Ord. Guaifenesin/Dextromethorphan (Guaifenesin Dm 100/10/5 Ml 5 Ml Syrup) 10 ml PO Q6H PRN PRN Reason: cough Insulin Glargine (Insulin Glargine,Hum.Rec.Anlog 100 Unit/Ml 10 Ml Vial) 25 unit SUBCUT BEDTIME [facility] Last Admin: 10/04/23 19:52 Dose: 25 unit Documented By: WILNER Insulin Human Lispro (Insulin Lispro 100 Unit/Ml 3 Ml Vial) 0 unit SUBCUT QIDACHS [facility]; Protocol Last Admin: 10/05/23 07:29 Dose: Not Given Documented By: DENISSE Non-Admin Reason: No Insulin Coverage Losartan Potassium (Losartan Potassium 25 Mg Tablet) 25 mg PO DAILY [facility]; Protocol Last Admin: 10/05/23 08:41 Dose: 25 mg Documented By: DENISSE Metformin HCl (Metformin Hcl 1,000 Mg Tablet) 1,000 mg PO BIDWM [facility] Last Admin: 10/05/23 08:41 Dose: 1,000 mg Documented By: DENISSE Ondansetron HCl (Ondansetron Hcl 4 Mg/2 Ml Vial) 4 mg IVPUSH Q8H PRN PRN Reason: Nausea and Vomiting Quetiapine Fumarate (Quetiapine Fumarate 50 Mg Tablet) 50 mg PO BEDTIME [facility] Last Admin: 10/04/23 19:52 Dose: 50 mg Documented By: WILNER Labs 10/04/23 05:54 10/04/23 05:54 Labs: Laboratory Results - last 24 hr 10/04/23 10/04/23 10/04/23 11:01 16:40 19:17 POC Glucose 215 H 135 H 235 H 10/05/23 07:19 POC Glucose 127 H Assessment and Plan (1) Major neurocognitive disorder due to another medical condition: Status: Acute Plan 73yo M who originally presented to ED 07/26/23 with suicidal ideation that he subsequently denied. Found to have no competency so guardianship is being pursued febrile 09/09/23 and tested positive for Covid-19 Dementia unspecified on escitalopram, and quetiapine no behavioral issues noted s/p Covid-19 infection s/p isolation finished course of remdesivir oxygenation stable on room air check weekly labs, last 10/03 wnl HTN stable blood pressure on losartan DM2 stable blood sugars at a.m. continue metformin, glargine and insulin sliding scale HLD LDL 58, total cholesterol 115, on Lipitor 40 mg daily dose decreased to lipitor 20 mg and recommend repeat labs in November /december. BPH finasteride VTE ppx UFH dispo LTC In my clinical judgment, the patient requires continued inpatient hospitalization for the following reasons: placement Quality Stroke Does the patient have a stroke diagnosis?: No VTE Prior VTE?: No VTE Risk Level:: Medical - moderate - high VTE Device Contraindication: Treatment Not Tolerated VTE Drug Contraindication: N/A - Med Ordered
[2023-10-05] MEDS: Enoxaparin Sodium 40 MG/0.4 ML SYRINGE SUBCUT (10:07)
[2023-10-05 10:58] LABS: Glucose, Whole Blood 215 mg/dL (60-115)
[2023-10-05] MEDS: Insulin Lispro 100 UNIT/ML 3 ML VIAL SUBCUT ×3 (11:59→20:44)
[2023-10-05 15:45] VITALS: BP 107/58; PULSE 74; RESP 15; TEMP 36.4; O2SAT 97
[2023-10-05 16:02] LABS: Glucose, Whole Blood 173 mg/dL (60-115)
[2023-10-05 19:34] VITALS: BP 125/72; PULSE 78; RESP 16; TEMP 36.6; O2SAT 97
[2023-10-05 20:19] LABS: Glucose, Whole Blood 189 mg/dL (60-115)
[2023-10-05] MEDS: QUEtiapine Fumarate 50 MG TABLET PO (20:44)
[2023-10-05] MEDS: Insulin Glargine,Hum.rec.anlog 100 UNIT/ML 10 ML VIAL 25 UNIT SUBCUT (20:44)
[2023-10-06 03:19] VITALS: BP 101/54; PULSE 79; RESP 18; TEMP 36.1; O2SAT 95
[2023-10-06 07:10] LABS: Glucose, Whole Blood 136 mg/dL (60-115)
[2023-10-06 07:22] VITALS: BP 113/57; PULSE 67; RESP 14; TEMP 36.1; O2SAT 97
[2023-10-06] MEDS: metFORMIN HCl 1,000 MG TABLET 1000 MG PO ×2 (08:46→16:54)
[2023-10-06] MEDS: Atorvastatin Calcium 20 MG TABLET PO (08:47)
[2023-10-06] MEDS: Losartan Potassium 25 MG TABLET PO (08:47)
[2023-10-06] MEDS: Escitalopram Oxalate 10 MG TABLET PO (08:47)
[2023-10-06] MEDS: Finasteride 5 MG TABLET PO (08:47)
--- NOTE | 2023-10-06 08:54 | HO.PM.IMPN ---
Subjective Subjective Date of Service: 10/06/23 Interval History: seen and examined this morning follow up for placement no overnight events seen eating breakfast this am ; feels well, no complaints Review of Systems All other system reviewed and negative Constitutional Constitutional: Denies chills and Denies fever(s) Cardiovascular Cardiovascular: Denies chest pain, Denies palpitations and Denies dyspnea Respiratory Respiratory: Denies cough and Denies dyspnea Gastrointestinal Gastrointestinal: Denies abdominal pain, Denies nausea and Denies vomiting Endocrine Endocrine: Denies palpitations Physical Exam Vital Signs: Vital Signs: Last Vital Signs Temp 96.9 F 10/06/23 07:22 Pulse 67 10/06/23 07:22 Resp 14 10/06/23 07:22 BP 113/57 L 10/06/23 07:22 Pulse Ox 97 10/06/23 07:22 O2 Del Method Room Air 10/06/23 07:22 BMI result Body Mass Index 24.0 alert and confused Objective Data Active Medications Acetaminophen (Acetaminophen 325 Mg Tablet) 650 mg PO Q6H PRN PRN Reason: Pain, Mild (Pain Scale 1-3) Last Admin: 09/15/23 11:48 Dose: 650 mg Documented By: DIMAS Atorvastatin Calcium (Atorvastatin Calcium 20 Mg Tablet) 20 mg PO DAILY [facility] Last Admin: 10/06/23 08:47 Dose: 20 mg Documented By: PREETHI Dextrose (Dextrose 50 % 25 Gm/50 Ml Syringe) 25 gm IVPUSH Q15M PRN; Protocol PRN Reason: per Hypoglycemia Standing Ord. Enoxaparin Sodium (Enoxaparin Sodium 40 Mg/0.4 Ml Syringe) 40 mg SUBCUT Q24H [facility] Last Admin: 10/05/23 10:07 Dose: 40 mg Documented By: DENISSE Escitalopram Oxalate (Escitalopram Oxalate 10 Mg Tablet) 10 mg PO DAILY [facility] Last Admin: 10/06/23 08:47 Dose: 10 mg Documented By: PREETHI Finasteride (Finasteride 5 Mg Tablet) 5 mg PO DAILY [facility] Last Admin: 10/06/23 08:47 Dose: 5 mg Documented By: PREETHI Glucose (Glucose Gel 15 Gm Gel..Gram.) 15 gm PO Q15M PRN; Protocol PRN Reason: per Hypoglycemia Standing Ord. Guaifenesin/Dextromethorphan (Guaifenesin Dm 100/10/5 Ml 5 Ml Syrup) 10 ml PO Q6H PRN PRN Reason: cough Insulin Glargine (Insulin Glargine,Hum.Rec.Anlog 100 Unit/Ml 10 Ml Vial) 25 unit SUBCUT BEDTIME [facility] Last Admin: 10/05/23 20:44 Dose: 25 unit Documented By: JASON Insulin Human Lispro (Insulin Lispro 100 Unit/Ml 3 Ml Vial) 0 unit SUBCUT QIDACHS [facility]; Protocol Last Admin: 10/06/23 07:22 Dose: Not Given Documented By: PREETHI Non-Admin Reason: No Insulin Coverage Losartan Potassium (Losartan Potassium 25 Mg Tablet) 25 mg PO DAILY [facility]; Protocol Last Admin: 10/06/23 08:47 Dose: 25 mg Documented By: PREETHI Metformin HCl (Metformin Hcl 1,000 Mg Tablet) 1,000 mg PO BIDWM [facility] Last Admin: 10/06/23 08:46 Dose: 1,000 mg Documented By: PREETHI Ondansetron HCl (Ondansetron Hcl 4 Mg/2 Ml Vial) 4 mg IVPUSH Q8H PRN PRN Reason: Nausea and Vomiting Quetiapine Fumarate (Quetiapine Fumarate 50 Mg Tablet) 50 mg PO BEDTIME [facility] Last Admin: 10/05/23 20:44 Dose: 50 mg Documented By: JASON Labs 10/04/23 05:54 10/04/23 05:54 Labs: Laboratory Results - last 24 hr 10/05/23 10/05/23 10/05/23 10:55 15:50 20:11 POC Glucose 215 H 173 H 189 H 10/06/23 07:05 POC Glucose 136 H Assessment and Plan (1) Major neurocognitive disorder due to another medical condition: Status: Acute Plan 73yo M who originally presented to ED 07/26/23 with suicidal ideation that he subsequently denied. Found to have no competency so guardianship is being pursued febrile 09/09/23 and tested positive for Covid-19 Dementia unspecified on escitalopram, and quetiapine no behavioral issues noted s/p Covid-19 infection s/p isolation finished course of remdesivir oxygenation stable on room air check weekly labs, last 10/03 wnl HTN stable blood pressure on losartan DM2 stable blood sugars at a.m. continue metformin, glargine and insulin sliding scale HLD LDL 58, total cholesterol 115, on Lipitor 40 mg daily dose decreased to lipitor 20 mg and recommend repeat labs in November /december. BPH finasteride VTE ppx UFH Attending Dr. Rogelio moraes [facility] In my clinical judgment, the patient requires continued inpatient hospitalization for the following reasons: placement Quality Stroke Does the patient have a stroke diagnosis?: No VTE Prior VTE?: No VTE Risk Level:: Medical - moderate - high VTE Device Contraindication: Treatment Not Tolerated VTE Drug Contraindication: N/A - Med Ordered
--- NOTE | 2023-10-06 09:00 | MHC.CM.PN ---
EMR reviewed. No changes to DC plan. CM LM for guardian requesting update. CM will continue to follow.
[2023-10-06] MEDS: Enoxaparin Sodium 40 MG/0.4 ML SYRINGE SUBCUT (10:14)
[2023-10-06 11:13] LABS: Glucose, Whole Blood 200 mg/dL (60-115)
[2023-10-06] MEDS: Insulin Lispro 100 UNIT/ML 3 ML VIAL SUBCUT ×3 (11:57→20:52)
[2023-10-06 15:03] VITALS: BP 103/58; PULSE 80; RESP 18; TEMP 36.7; O2SAT 97
[2023-10-06 16:15] LABS: Glucose, Whole Blood 189 mg/dL (60-115)
[2023-10-06 19:18] VITALS: BP 114/59; PULSE 73; RESP 18; TEMP 36.3; O2SAT 97
[2023-10-06 19:36] VITALS: BP 114/59; PULSE 73; RESP 18; TEMP 37; O2SAT 96
[2023-10-06 19:56] LABS: Glucose, Whole Blood 168 mg/dL (60-115)
[2023-10-06] MEDS: Insulin Glargine,Hum.rec.anlog 100 UNIT/ML 10 ML VIAL 25 UNIT SUBCUT (20:52)
[2023-10-06] MEDS: QUEtiapine Fumarate 50 MG TABLET PO (20:53)
[2023-10-07 03:20] VITALS: BP 118/58; PULSE 71; RESP 16; TEMP 36.1; O2SAT 97
[2023-10-07 07:05] VITALS: BP 115/58; PULSE 65; RESP 16; TEMP 36.3; O2SAT 97
[2023-10-07 07:19] LABS: Glucose, Whole Blood 139 mg/dL (60-115)
[2023-10-07] MEDS: Atorvastatin Calcium 20 MG TABLET PO (08:20)
[2023-10-07] MEDS: Finasteride 5 MG TABLET PO (08:20)
[2023-10-07] MEDS: Escitalopram Oxalate 10 MG TABLET PO (08:20)
[2023-10-07] MEDS: metFORMIN HCl 1,000 MG TABLET 1000 MG PO ×2 (08:20→17:02)
[2023-10-07] MEDS: Losartan Potassium 25 MG TABLET PO (08:20)
[2023-10-07] MEDS: Enoxaparin Sodium 40 MG/0.4 ML SYRINGE SUBCUT (10:45)
--- NOTE | 2023-10-07 10:52 | HO.PM.IMPN ---
Subjective Subjective Date of Service: 10/07/23 Interval History: seen and examined this morning follow up for placement no overnight events seen eating breakfast this am ; feels well, no complaints Review of Systems All other system reviewed and negative Constitutional Constitutional: Denies chills and Denies fever(s) Cardiovascular Cardiovascular: Denies chest pain, Denies palpitations and Denies dyspnea Respiratory Respiratory: Denies cough and Denies dyspnea Gastrointestinal Gastrointestinal: Denies abdominal pain, Denies nausea and Denies vomiting Endocrine Endocrine: Denies palpitations Physical Exam Vital Signs: Vital Signs: Last Vital Signs Temp 97.4 F 10/07/23 07:05 Pulse 65 10/07/23 07:05 Resp 16 10/07/23 07:05 BP 115/58 L 10/07/23 07:05 Pulse Ox 97 10/07/23 07:05 O2 Del Method Room Air 10/07/23 07:05 BMI result Body Mass Index 24.0 alert and confused abd soft LSCTA Objective Data Active Medications Acetaminophen (Acetaminophen 325 Mg Tablet) 650 mg PO Q6H PRN PRN Reason: Pain, Mild (Pain Scale 1-3) Last Admin: 09/15/23 11:48 Dose: 650 mg Documented By: DIMAS Atorvastatin Calcium (Atorvastatin Calcium 20 Mg Tablet) 20 mg PO DAILY [facility] Last Admin: 10/07/23 08:20 Dose: 20 mg Documented By: PREETHI Dextrose (Dextrose 50 % 25 Gm/50 Ml Syringe) 25 gm IVPUSH Q15M PRN; Protocol PRN Reason: per Hypoglycemia Standing Ord. Enoxaparin Sodium (Enoxaparin Sodium 40 Mg/0.4 Ml Syringe) 40 mg SUBCUT Q24H [facility] Last Admin: 10/07/23 10:45 Dose: 40 mg Documented By: PREETHI Escitalopram Oxalate (Escitalopram Oxalate 10 Mg Tablet) 10 mg PO DAILY [facility] Last Admin: 10/07/23 08:20 Dose: 10 mg Documented By: PREETHI Finasteride (Finasteride 5 Mg Tablet) 5 mg PO DAILY [facility] Last Admin: 10/07/23 08:20 Dose: 5 mg Documented By: PREETHI Glucose (Glucose Gel 15 Gm Gel..Gram.) 15 gm PO Q15M PRN; Protocol PRN Reason: per Hypoglycemia Standing Ord. Guaifenesin/Dextromethorphan (Guaifenesin Dm 100/10/5 Ml 5 Ml Syrup) 10 ml PO Q6H PRN PRN Reason: cough Insulin Glargine (Insulin Glargine,Hum.Rec.Anlog 100 Unit/Ml 10 Ml Vial) 25 unit SUBCUT BEDTIME [facility] Last Admin: 10/06/23 20:52 Dose: 25 unit Documented By: JASON Insulin Human Lispro (Insulin Lispro 100 Unit/Ml 3 Ml Vial) 0 unit SUBCUT QIDACHS [facility]; Protocol Last Admin: 10/07/23 07:22 Dose: Not Given Documented By: PREETHI Non-Admin Reason: No Insulin Coverage Losartan Potassium (Losartan Potassium 25 Mg Tablet) 25 mg PO DAILY [facility]; Protocol Last Admin: 10/07/23 08:20 Dose: 25 mg Documented By: PREETHI Metformin HCl (Metformin Hcl 1,000 Mg Tablet) 1,000 mg PO BIDWM [facility] Last Admin: 10/07/23 08:20 Dose: 1,000 mg Documented By: PREETHI Ondansetron HCl (Ondansetron Hcl 4 Mg/2 Ml Vial) 4 mg IVPUSH Q8H PRN PRN Reason: Nausea and Vomiting Quetiapine Fumarate (Quetiapine Fumarate 50 Mg Tablet) 50 mg PO BEDTIME [facility] Last Admin: 10/06/23 20:53 Dose: 50 mg Documented By: JASON Labs 10/04/23 05:54 10/04/23 05:54 Labs: Laboratory Results - last 24 hr 10/06/23 10/06/23 10/06/23 11:05 16:11 19:52 POC Glucose 200 H 189 H 168 H 10/07/23 07:07 POC Glucose 139 H Assessment and Plan (1) Major neurocognitive disorder due to another medical condition: Status: Acute Plan 73yo M who originally presented to ED 07/26/23 with suicidal ideation that he subsequently denied. Found to have no competency so guardianship is being pursued febrile 09/09/23 and tested positive for Covid-19 Dementia unspecified on escitalopram, and quetiapine no behavioral issues noted s/p Covid-19 infection s/p isolation finished course of remdesivir oxygenation stable on room air check weekly labs, last 10/03 wnl HTN stable blood pressure on losartan DM2 stable blood sugars at a.m. continue metformin, glargine and insulin sliding scale HLD LDL 58, total cholesterol 115, on Lipitor 40 mg daily dose decreased to lipitor 20 mg and recommend repeat labs in November /december. BPH finasteride VTE ppx UFH Attending Dr. Rogelio moraes [facility] In my clinical judgment, the patient requires continued inpatient hospitalization for the following reasons: placement Quality Stroke Does the patient have a stroke diagnosis?: No VTE Prior VTE?: No VTE Risk Level:: Medical - moderate - high VTE Device Contraindication: Treatment Not Tolerated VTE Drug Contraindication: N/A - Med Ordered
[2023-10-07 11:16] LABS: Glucose, Whole Blood 231 mg/dL (60-115)
[2023-10-07] MEDS: Insulin Lispro 100 UNIT/ML 3 ML VIAL SUBCUT ×3 (11:48→20:27)
[2023-10-07 15:20] VITALS: BP 105/59; PULSE 72; RESP 17; TEMP 36.2; O2SAT 97
[2023-10-07 16:06] LABS: Glucose, Whole Blood 163 mg/dL (60-115)
[2023-10-07 20:00] VITALS: BP 102/59; PULSE 70; RESP 18; TEMP 36.3; O2SAT 97
[2023-10-07 20:08] LABS: Glucose, Whole Blood 185 mg/dL (60-115)
[2023-10-07] MEDS: QUEtiapine Fumarate 50 MG TABLET PO (20:27)
[2023-10-07] MEDS: Insulin Glargine,Hum.rec.anlog 100 UNIT/ML 10 ML VIAL 25 UNIT SUBCUT (20:27)
[2023-10-08 03:12] VITALS: BP 115/62; PULSE 72; RESP 18; TEMP 36.4; O2SAT 96
[2023-10-08 07:06] VITALS: BP 124/60; PULSE 68; RESP 20; TEMP 36.8; O2SAT 97
[2023-10-08 07:26] LABS: Glucose, Whole Blood 133 mg/dL (60-115)
[2023-10-08] MEDS: metFORMIN HCl 1,000 MG TABLET 1000 MG PO ×2 (08:05→17:19)
[2023-10-08] MEDS: Atorvastatin Calcium 20 MG TABLET PO (08:05)
[2023-10-08] MEDS: Finasteride 5 MG TABLET PO (08:05)
[2023-10-08] MEDS: Escitalopram Oxalate 10 MG TABLET PO (08:05)
[2023-10-08] MEDS: Losartan Potassium 25 MG TABLET PO (08:05)
[2023-10-08 11:19] LABS: Glucose, Whole Blood 222 mg/dL (60-115)
[2023-10-08] MEDS: Insulin Lispro 100 UNIT/ML 3 ML VIAL SUBCUT ×2 (11:51→20:21)
[2023-10-08] MEDS: Enoxaparin Sodium 40 MG/0.4 ML SYRINGE SUBCUT (11:52)
--- NOTE | 2023-10-08 13:20 | MHC.CM.PN ---
Addendum entered by Marley Farr RN 10/08/23 13:31: CM [facility] Per [facility]enzie, [facility] RFI was completed today as they did not have SSN for patient. Mckenzie expects to have information on finances by end of next week. CM will continue to follow. Original Note: EMR reviewed. No change to dc plan. Continue to await update from guardian re: finances. CM left message 10/05, 10/06 and today 10/07 for guardian, and sent email. Will continue to follow.
--- NOTE | 2023-10-08 13:44 | HO.PM.IMPN ---
Subjective Subjective Date of Service: 10/08/23 Interval History: No acute issues overnight. Behavior not an issue Review of Systems Denies chest pain Denies shortness of breath Denies nausea vomiting diarrhea Denies fever chills Physical Exam Vital Signs: Vital Signs: Last Vital Signs Temp 98.3 F 10/08/23 07:06 Pulse 68 10/08/23 07:06 Resp 20 10/08/23 07:06 BP 124/60 10/08/23 07:06 Pulse Ox 97 10/08/23 07:06 O2 Del Method Room Air 10/08/23 07:06 BMI result Body Mass Index 24.0 Const: Other: Awake alert confused no acute distress Resp: Other: Clear to auscultation bilaterally no rales rhonchi or wheezes Cardio: Other: No S4; positive S1-S2; no S3 murmurs rubs or gallops GI: Other: Soft nontender nondistended bowel sounds Extrem: Other: No edema bilaterally Objective Data Active Medications Acetaminophen (Acetaminophen 325 Mg Tablet) 650 mg PO Q6H PRN PRN Reason: Pain, Mild (Pain Scale 1-3) Last Admin: 09/15/23 11:48 Dose: 650 mg Documented By: DIMAS Atorvastatin Calcium (Atorvastatin Calcium 20 Mg Tablet) 20 mg PO DAILY [facility] Last Admin: 10/08/23 08:05 Dose: 20 mg Documented By: LUKE Dextrose (Dextrose 50 % 25 Gm/50 Ml Syringe) 25 gm IVPUSH Q15M PRN; Protocol PRN Reason: per Hypoglycemia Standing Ord. Enoxaparin Sodium (Enoxaparin Sodium 40 Mg/0.4 Ml Syringe) 40 mg SUBCUT Q24H [facility] Last Admin: 10/08/23 11:52 Dose: 40 mg Documented By: LUKE Escitalopram Oxalate (Escitalopram Oxalate 10 Mg Tablet) 10 mg PO DAILY [facility] Last Admin: 10/08/23 08:05 Dose: 10 mg Documented By: LUKE Finasteride (Finasteride 5 Mg Tablet) 5 mg PO DAILY [facility] Last Admin: 10/08/23 08:05 Dose: 5 mg Documented By: LUKE Glucose (Glucose Gel 15 Gm Gel..Gram.) 15 gm PO Q15M PRN; Protocol PRN Reason: per Hypoglycemia Standing Ord. Guaifenesin/Dextromethorphan (Guaifenesin Dm 100/10/5 Ml 5 Ml Syrup) 10 ml PO Q6H PRN PRN Reason: cough Insulin Glargine (Insulin Glargine,Hum.Rec.Anlog 100 Unit/Ml 10 Ml Vial) 25 unit SUBCUT BEDTIME [facility] Last Admin: 10/07/23 20:27 Dose: 25 unit Documented By: LAUREN Insulin Human Lispro (Insulin Lispro 100 Unit/Ml 3 Ml Vial) 0 unit SUBCUT QIDACHS [facility]; Protocol Last Admin: 10/08/23 11:51 Dose: 4 unit Documented By: LUKE Losartan Potassium (Losartan Potassium 25 Mg Tablet) 25 mg PO DAILY [facility]; Protocol Last Admin: 10/08/23 08:05 Dose: 25 mg Documented By: LUKE Metformin HCl (Metformin Hcl 1,000 Mg Tablet) 1,000 mg PO BIDWM [facility] Last Admin: 10/08/23 08:05 Dose: 1,000 mg Documented By: LUKE Ondansetron HCl (Ondansetron Hcl 4 Mg/2 Ml Vial) 4 mg IVPUSH Q8H PRN PRN Reason: Nausea and Vomiting Quetiapine Fumarate (Quetiapine Fumarate 50 Mg Tablet) 50 mg PO BEDTIME [facility] Last Admin: 10/07/23 20:27 Dose: 50 mg Documented By: LAUREN Labs 10/04/23 05:54 10/04/23 05:54 Labs: Laboratory Results - last 24 hr 10/07/23 10/07/23 10/08/23 16:00 19:53 07:11 POC Glucose 163 H 185 H 133 H 10/08/23 11:10 POC Glucose 222 H Assessment and Plan (1) Major neurocognitive disorder due to another medical condition: Status: Acute Plan 73-year-old man presented to the ER on 07/26/2023 initially with suicide ideation but then denied. Patient found to require guardianship, was found to have no competency. Court date for guardianship is pending inpatient will be admitted. 1. Major neurocognitive disorder due to another medical condition -History of dementia -await forthcoming data from guardian 2.Hypertension -acceptable control on current therapy -adjust as indicated 3.Diabetes mellitus type 2 -acceptable control on current therapies -lispro correctional scale -adjust as indicated Heparin Full code Patient admitted for guardianship court date August 15. No capacity per psychiatry Quality Stroke Does the patient have a stroke diagnosis?: No VTE Prior VTE?: No VTE Risk Level:: Medical - moderate - high VTE Device Contraindication: Treatment Not Tolerated VTE Drug Contraindication: N/A - Med Ordered
[2023-10-08 15:57] VITALS: BP 113/57; PULSE 75; RESP 18; TEMP 36.6; O2SAT 97
[2023-10-08 16:22] LABS: Glucose, Whole Blood 144 mg/dL (60-115)
[2023-10-08 19:49] VITALS: BP 114/58; PULSE 77; RESP 18; TEMP 36.6; O2SAT 96
[2023-10-08 20:09] LABS: Glucose, Whole Blood 187 mg/dL (60-115)
[2023-10-08] MEDS: QUEtiapine Fumarate 50 MG TABLET PO (20:20)
[2023-10-08] MEDS: Insulin Glargine,Hum.rec.anlog 100 UNIT/ML 10 ML VIAL 25 UNIT SUBCUT (20:21)
[2023-10-09 04:05] VITALS: BP 116/60; PULSE 73; RESP 16; TEMP 36.3; O2SAT 97
[2023-10-09 07:06] VITALS: BP 104/59; PULSE 73; RESP 20; TEMP 36.4; O2SAT 96
[2023-10-09 07:14] LABS: Glucose, Whole Blood 165 mg/dL (60-115)
[2023-10-09] MEDS: Escitalopram Oxalate 10 MG TABLET PO (07:38)
[2023-10-09] MEDS: Atorvastatin Calcium 20 MG TABLET PO (07:38)
[2023-10-09] MEDS: metFORMIN HCl 1,000 MG TABLET 1000 MG PO ×2 (07:38→17:08)
[2023-10-09] MEDS: Insulin Lispro 100 UNIT/ML 3 ML VIAL SUBCUT ×4 (07:38→21:09)
[2023-10-09] MEDS: Losartan Potassium 25 MG TABLET PO (07:38)
[2023-10-09] MEDS: Finasteride 5 MG TABLET PO (07:39)
[2023-10-09] MEDS: Enoxaparin Sodium 40 MG/0.4 ML SYRINGE SUBCUT (11:02)
[2023-10-09 11:10] LABS: Glucose, Whole Blood 182 mg/dL (60-115)
[2023-10-09 15:03] VITALS: BP 101/56; PULSE 75; RESP 18; TEMP 36.6; O2SAT 97
--- NOTE | 2023-10-09 15:46 | HO.PM.IMPN ---
Subjective Subjective Date of Service: 10/09/23 Interval History: seen and examined this morning follow up for placement no overnight events Review of Systems Review of Systems: Yes all other systems are reviewed and are negative Cardiovascular Cardiovascular: Denies chest pain Gastrointestinal Gastrointestinal: Denies abdominal pain Physical Exam Vital Signs: Vital Signs: Last Vital Signs Temp 97.8 F 10/09/23 15:03 Pulse 75 10/09/23 15:03 Resp 18 10/09/23 15:03 BP 101/56 L 10/09/23 15:03 Pulse Ox 97 10/09/23 15:03 O2 Del Method Room Air 10/09/23 15:03 BMI result Body Mass Index 24.0 Const: Other: pleasantly confused General: cooperative, comfortable, no acute distress, alert and awake Nutritional Appearance: average body habitus Resp: Effort & Inspection: normal respiratory effort, able to speak in complete sentences, no respiratory distress and no use of accessory muscles Auscultation: clear to auscultation bilaterally Cardio: Rate: regular rate GI: Inspection: No distended Palpation (GI): Soft to palpation and nontender Neuro: General: moves all extremities and CN's II-XI intact bilaterally Extrem: Other: 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 Enoxaparin Sodium (Enoxaparin Sodium 40 Mg/0.4 Ml Syringe) 40 mg SUBCUT Q24H [facility] Last Admin: 10/09/23 11:02 Dose: 40 mg Documented By: WALT Escitalopram Oxalate (Escitalopram Oxalate 10 Mg Tablet) 10 mg PO DAILY [facility] Last Admin: 10/09/23 07:38 Dose: 10 mg Documented By: WALT Finasteride (Finasteride 5 Mg Tablet) 5 mg PO DAILY [facility] Last Admin: 10/09/23 07:39 Dose: 5 mg Documented By: WALT Glucose (Glucose Gel 15 Gm Gel..Gram.) 15 gm PO Q15M PRN; Protocol PRN Reason: per Hypoglycemia Standing Ord. Guaifenesin/Dextromethorphan (Guaifenesin Dm 100/10/5 Ml 5 Ml Syrup) 10 ml PO Q6H PRN PRN Reason: cough Insulin Glargine (Insulin Glargine,Hum.Rec.Anlog 100 Unit/Ml 10 Ml Vial) 25 unit SUBCUT BEDTIME [facility] Last Admin: 10/08/23 20:21 Dose: 25 unit Documented By: RFAA Insulin Human Lispro (Insulin Lispro 100 Unit/Ml 3 Ml Vial) 0 unit SUBCUT QIDACHS [facility]; Protocol Last Admin: 10/09/23 11:52 Dose: 2 unit Documented By: WALT Losartan Potassium (Losartan Potassium 25 Mg Tablet) 25 mg PO DAILY [facility]; Protocol Last Admin: 10/09/23 07:38 Dose: 25 mg Documented By: WALT Metformin HCl (Metformin Hcl 1,000 Mg Tablet) 1,000 mg PO BIDWM [facility] Last Admin: 10/09/23 07:38 Dose: 1,000 mg Documented By: WALT Ondansetron HCl (Ondansetron Hcl 4 Mg/2 Ml Vial) 4 mg IVPUSH Q8H PRN PRN Reason: Nausea and Vomiting Quetiapine Fumarate (Quetiapine Fumarate 50 Mg Tablet) 50 mg PO BEDTIME [facility] Last Admin: 10/08/23 20:20 Dose: 50 mg Documented By: RAFA Labs 10/04/23 05:54 10/04/23 05:54 Labs: Laboratory Results - last 24 hr 10/08/23 10/08/23 10/09/23 16:18 19:55 07:10 POC Glucose 144 H 187 H 165 H 10/09/23 11:06 POC Glucose 182 H Assessment and Plan (1) Major neurocognitive disorder due to another medical condition: Status: Acute Plan 73yo M who originally presented to ED 07/26/23 with suicidal ideation that he subsequently denied. Found to have no competency so guardianship is being pursued febrile 09/09/23 and tested positive for Covid-19 Dementia unspecified on escitalopram, and quetiapine no behavioral issues noted s/p Covid-19 infection s/p isolation finished course of remdesivir oxygenation stable on room air check weekly labs, last 10/03 wnl HTN stable blood pressure on losartan DM2 stable blood sugars at a.m. continue metformin, glargine and insulin sliding scale HLD LDL 58, total cholesterol 115, on Lipitor 40 mg daily dose decreased to lipitor 20 mg and recommend repeat labs in November /december. BPH finasteride VTE ppx -lovenox Attending Dr. Rogelio moraes [facility] In my clinical judgment, the patient requires continued inpatient hospitalization for the following reasons: placement Quality Stroke Does the patient have a stroke diagnosis?: No VTE Prior VTE?: No VTE Risk Level:: Medical - moderate - high VTE Device Contraindication: Treatment Not Tolerated VTE Drug Contraindication: N/A - Med Ordered
[2023-10-09 16:23] LABS: Glucose, Whole Blood 187 mg/dL (60-115)
[2023-10-09 19:56] VITALS: BP 124/60; PULSE 69; RESP 14; TEMP 36.6; O2SAT 98
[2023-10-09 20:02] LABS: Glucose, Whole Blood 174 mg/dL (60-115)
[2023-10-09] MEDS: QUEtiapine Fumarate 50 MG TABLET PO (21:10)
[2023-10-09] MEDS: Insulin Glargine,Hum.rec.anlog 100 UNIT/ML 10 ML VIAL 25 UNIT SUBCUT (21:10)
[2023-10-10 04:00] VITALS: BP 109/63; PULSE 67; RESP 16; TEMP 36.6; O2SAT 96
[2023-10-10 07:16] LABS: Glucose, Whole Blood 127 mg/dL (60-115)
[2023-10-10 07:24] VITALS: BP 112/66; PULSE 67; RESP 15; TEMP 36.2; O2SAT 96
[2023-10-10] MEDS: Escitalopram Oxalate 10 MG TABLET PO (07:45)
[2023-10-10] MEDS: Losartan Potassium 25 MG TABLET PO (07:45)
[2023-10-10] MEDS: metFORMIN HCl 1,000 MG TABLET 1000 MG PO ×2 (07:45→16:55)
[2023-10-10] MEDS: Atorvastatin Calcium 20 MG TABLET PO (07:46)
[2023-10-10] MEDS: Finasteride 5 MG TABLET PO (07:46)
[2023-10-10 08:55] LABS: Estimated Glomerular Filt Rate > 60
[2023-10-10] MEDS: Enoxaparin Sodium 40 MG/0.4 ML SYRINGE SUBCUT (09:44)
--- NOTE | 2023-10-10 10:54 | MHC.CM.PN ---
EMR reviewed. No changes to dc plan. CM will continue to follow.
[2023-10-10 11:38] LABS: Glucose, Whole Blood 212 mg/dL (60-115)
[2023-10-10] MEDS: Insulin Lispro 100 UNIT/ML 3 ML VIAL SUBCUT ×3 (11:51→21:39)
--- NOTE | 2023-10-10 12:37 | P.PNIM_ITS ---
Subjective Subjective Date of Service: 10/10/23 Interval History: seen and examined this morning follow up for placement no overnight events doing well, no specific complaints Review of Systems Review of Systems: Yes all other systems are reviewed and are negative Constitutional Constitutional: Denies chills and Denies fever(s) Cardiovascular Cardiovascular: Denies chest pain Physical Exam 2 Vital Signs: Vital Signs: Last Vital Signs Temp 97.2 F 10/10/23 07:24 Pulse 67 10/10/23 07:24 Resp 15 10/10/23 07:24 BP 112/66 10/10/23 07:24 Pulse Ox 96 10/10/23 07:24 O2 Del Method Room Air 10/10/23 07:24 BMI result Body Mass Index 24.0 Const: Other: pleasantly confused General: cooperative, comfortable, no acute distress, alert and awake N utritional Appearance: average body habitus Resp: Effort & Inspection: normal respiratory effort, able to speak in complete sentences, no respiratory distress and no use of accessory muscles A uscultation: clear to auscultation bilaterally Cardio: Rate: regular rate GI: Inspection: No distended Palpation (GI): Soft to palpation and nontender Neuro: General: moves all extremities and CN's II-XI intact bilaterally Extrem: Other: 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 Enoxaparin Sodium (Enoxaparin Sodium 40 Mg/0.4 Ml Syringe) 40 mg SUBCUT Q24H [facility] Last Admin: 10/10/23 09:44 Dose: 40 mg Documented By: WALT Escitalopram Oxalate (Escitalopram Oxalate 10 Mg Tablet) 10 mg PO DAILY [facility] Last Admin: 10/10/23 07:45 Dose: 10 mg Documented By: WALT Finasteride (Finasteride 5 Mg Tablet) 5 mg PO DAILY [facility] Last Admin: 10/10/23 07:46 Dose: 5 mg Documented By: WALT Glucose (Glucose Gel 15 Gm Gel..Gram.) 15 gm PO Q15M PRN; Protocol PRN Reason: per Hypoglycemia Standing Ord. Guaifenesin/Dextromethorphan (Guaifenesin Dm 100/10/5 Ml 5 Ml Syrup) 10 ml PO Q6H PRN PRN Reason: cough Insulin Glargine (Insulin Glargine,Hum.Rec.Anlog 100 Unit/Ml 10 Ml Vial) 25 unit SUBCUT BEDTIME [facility] Last Admin: 10/09/23 21:10 Dose: 25 unit Documented By: RAFA Insulin Human Lispro (Insulin Lispro 100 Unit/Ml 3 Ml Vial) 0 unit SUBCUT QIDACHS [facility]; Protocol Last Admin: 10/10/23 11:51 Dose: 4 unit Documented By: WALT Losartan Potassium (Losartan Potassium 25 Mg Tablet) 25 mg PO DAILY [facility]; Protocol Last Admin: 10/10/23 07:45 Dose: 25 mg Documented By: WALT Metformin HCl (Metformin Hcl 1,000 Mg Tablet) 1,000 mg PO BIDWM [facility] Last Admin: 10/10/23 07:45 Dose: 1,000 mg Documented By: WALT Ondansetron HCl (Ondansetron Hcl 4 Mg/2 Ml Vial) 4 mg IVPUSH Q8H PRN PRN Reason: Nausea and Vomiting Quetiapine Fumarate (Quetiapine Fumarate 50 Mg Tablet) 50 mg PO BEDTIME [facility] Last Admin: 10/09/23 21:10 Dose: 50 mg Documented By: RAFA Labs 10/04/23 05:54 10/10/23 08:13 Labs: Laboratory Results - last 24 hr 10/09/23 10/09/23 10/10/23 16:04 19:58 07:02 Hold Purple Top Estim Creat Clear Calc Estimated GFR POC Glucose 187 H 174 H 127 H 10/10/23 10/10/23 08:13 11:30 Hold Purple Top SEE NOTE Estim Creat Clear Calc 70.0 Estimated GFR > 60 POC Glucose 212 H Assessment and Plan (1) Major neurocognitive disorder due to another medical condition: Status: Acute Plan 73yo M who originally presented to ED 07/26/23 with suicidal ideation that he subsequently denied. Found to have no competency so guardianship is being pursued febrile 09/09/23 and tested positive for Covid-19 Dementia unspecified on escitalopram, and quetiapine no behavioral issues noted s/p Covid-19 infection s/p isolation finished course of remdesivir oxygenation stable on room air check weekly labs, last 10/03 wnl HTN stable blood pressure on losartan DM2 stable blood sugars at a.m. continue metformin, glargine and insulin sliding scale HLD LDL 58, total cholesterol 115, on Lipitor 40 mg daily dose decreased to lipitor 20 mg and recommend repeat labs in November /december. BPH finasteride VTE ppx -lovenox Attending Dr. Rogelio moraes [facility] In my clinical judgment, the patient requires continued inpatient hospitalization for the following reasons: placement Quality Stroke Does the patient have a stroke diagnosis?: No VTE Prior VTE?: No VTE Risk Level:: Medical - moderate - high VTE Device Contraindication: Treatment Not Tolerated VTE Drug Contraindication: N/A - Med Ordered
--- NOTE | 2023-10-10 12:38 | PC.NURSE ---
Pt alert to self and cooperative with care per baseline. Pt OOB to chair with stand by assistance and cane. Pt ambulated in hallway with staff this shift. All needs met at this time, safety measures in place.
[2023-10-10 15:07] VITALS: BP 102/59; PULSE 74; RESP 18; TEMP 36.4; O2SAT 97
[2023-10-10 16:27] LABS: Glucose, Whole Blood 160 mg/dL (60-115)
[2023-10-10 19:41] VITALS: BP 119/56; PULSE 72; RESP 16; TEMP 36.5; O2SAT 100
[2023-10-10 20:44] LABS: Glucose, Whole Blood 155 mg/dL (60-115)
[2023-10-10] MEDS: Insulin Glargine,Hum.rec.anlog 100 UNIT/ML 10 ML VIAL 25 UNIT SUBCUT (21:39)
[2023-10-10] MEDS: QUEtiapine Fumarate 50 MG TABLET PO (21:39)
[2023-10-11 03:38] VITALS: BP 114/59; PULSE 66; RESP 16; TEMP 36.1; O2SAT 97
[2023-10-11 07:33] VITALS: BP 109/63; PULSE 67; RESP 18; TEMP 36.2; O2SAT 97
[2023-10-11 07:43] LABS: Glucose, Whole Blood 160 mg/dL (60-115)
[2023-10-11] MEDS: Losartan Potassium 25 MG TABLET PO (07:53)
[2023-10-11] MEDS: metFORMIN HCl 1,000 MG TABLET 1000 MG PO ×2 (07:54→16:57)
[2023-10-11] MEDS: Finasteride 5 MG TABLET PO (07:54)
[2023-10-11] MEDS: Escitalopram Oxalate 10 MG TABLET PO (07:54)
[2023-10-11] MEDS: Insulin Lispro 100 UNIT/ML 3 ML VIAL SUBCUT ×2 (07:54→21:01)
[2023-10-11] MEDS: Atorvastatin Calcium 20 MG TABLET PO (07:56)
[2023-10-11 08:27] LABS: Hematocrit 37.5 % (42.0-52.0); Hemoglobin 13.5 g/dl (14.0-18.0); Mean Corpuscular Hemoglobin 30.1 pg (27.0-33.0); Mean Corpuscular Volume 83.7 fL (80.0-98.0); Mean Platelet Volume 9.5 fL (9.4-12.4); Platelet Count 213 X10*3/uL (160-400); Red Blood Count 4.48 X10*6/uL (4.60-5.80); White Blood Count 6.9 X10*3/uL (4.8-10.8)
[2023-10-11 08:33] LABS: Anion Gap 15 (12-20); Blood Urea Nitrogen 16 mg/dL (9-16); Calcium 9.2 mg/dL (8.4-10.2); Carbon Dioxide 23 mmol/L (22-29); Chloride 101 mmol/L (96-108); Creatinine Clr Calc Pharmacy 86.5; Estimated Glomerular Filt Rate > 60; Glucose Random 145 mg/dL (60-115); Potassium 3.9 mmol/L (3.3-5.1); Sodium 135 mmol/L (135-145)
[2023-10-11] MEDS: Enoxaparin Sodium 40 MG/0.4 ML SYRINGE SUBCUT (10:06)
--- NOTE | 2023-10-11 10:24 | HO.PM.IMPN ---
Subjective Subjective Date of Service: 10/11/23 Interval History: seen and examined this morning follow up for placement no overnight events doing well, no specific complaints Review of Systems Review of Systems: Yes all other systems are reviewed and are negative Constitutional Constitutional: Denies chills and Denies fever(s) Cardiovascular Cardiovascular: Denies chest pain Physical Exam Vital Signs: Vital Signs: Last Vital Signs Temp 97.1 F 10/11/23 07:33 Pulse 67 10/11/23 07:33 Resp 18 10/11/23 07:33 BP 109/63 10/11/23 07:33 Pulse Ox 97 10/11/23 07:33 O2 Del Method Room Air 10/11/23 07:33 BMI result Body Mass Index 24.0 alert and oriented LSCTA abd soft Objective Data Active Medications Acetaminophen (Acetaminophen 325 Mg Tablet) 650 mg PO Q6H PRN PRN Reason: Pain, Mild (Pain Scale 1-3) Last Admin: 09/15/23 11:48 Dose: 650 mg Documented By: DIMAS Atorvastatin Calcium (Atorvastatin Calcium 20 Mg Tablet) 20 mg PO DAILY [facility] Last Admin: 10/11/23 07:56 Dose: 20 mg Documented By: CHITO Dextrose (Dextrose 50 % 25 Gm/50 Ml Syringe) 25 gm IVPUSH Q15M PRN; Protocol PRN Reason: per Hypoglycemia Standing Ord. Enoxaparin Sodium (Enoxaparin Sodium 40 Mg/0.4 Ml Syringe) 40 mg SUBCUT Q24H [facility] Last Admin: 10/11/23 10:06 Dose: 40 mg Documented By: CHITO Escitalopram Oxalate (Escitalopram Oxalate 10 Mg Tablet) 10 mg PO DAILY [facility] Last Admin: 10/11/23 07:54 Dose: 10 mg Documented By: CHITO Finasteride (Finasteride 5 Mg Tablet) 5 mg PO DAILY [facility] Last Admin: 10/11/23 07:54 Dose: 5 mg Documented By: CHITO Glucose (Glucose Gel 15 Gm Gel..Gram.) 15 gm PO Q15M PRN; Protocol PRN Reason: per Hypoglycemia Standing Ord. Guaifenesin/Dextromethorphan (Guaifenesin Dm 100/10/5 Ml 5 Ml Syrup) 10 ml PO Q6H PRN PRN Reason: cough Insulin Glargine (Insulin Glargine,Hum.Rec.Anlog 100 Unit/Ml 10 Ml Vial) 25 unit SUBCUT BEDTIME [facility] Last Admin: 10/10/23 21:39 Dose: 25 unit Documented By: LAUREN Insulin Human Lispro (Insulin Lispro 100 Unit/Ml 3 Ml Vial) 0 unit SUBCUT QIDACHS [facility]; Protocol Last Admin: 10/11/23 07:54 Dose: 2 unit Documented By: CHITO Losartan Potassium (Losartan Potassium 25 Mg Tablet) 25 mg PO DAILY [facility]; Protocol Last Admin: 10/11/23 07:53 Dose: 25 mg Documented By: CHITO Metformin HCl (Metformin Hcl 1,000 Mg Tablet) 1,000 mg PO BIDWM [facility] Last Admin: 10/11/23 07:54 Dose: 1,000 mg Documented By: CHITO Ondansetron HCl (Ondansetron Hcl 4 Mg/2 Ml Vial) 4 mg IVPUSH Q8H PRN PRN Reason: Nausea and Vomiting Quetiapine Fumarate (Quetiapine Fumarate 50 Mg Tablet) 50 mg PO BEDTIME [facility] Last Admin: 10/10/23 21:39 Dose: 50 mg Documented By: LAUREN Labs 10/11/23 08:02 10/11/23 08:02 Labs: Laboratory Results - last 24 hr 10/10/23 10/10/23 10/10/23 11:30 16:13 20:34 MCV MCH MCHC RDW Plt Count MPV Absolute Nucleated RBC Nucleated RBC % (auto) Anion Gap Estim Creat Clear Calc Estimated GFR POC Glucose 212 H 160 H 155 H Random Glucose Calcium 10/11/23 10/11/23 07:32 08:02 MCV 83.7 MCH 30.1 MCHC 36.0 RDW 13.0 Plt Count 213 MPV 9.5 Absolute Nucleated RBC 0.000 Nucleated RBC % (auto) 0.0 Anion Gap 15 Estim Creat Clear Calc 86.5 Estimated GFR > 60 POC Glucose 160 H Random Glucose 145 H Calcium 9.2 Assessment and Plan (1) Major neurocognitive disorder due to another medical condition: Status: Acute Plan 73yo M who originally presented to ED 07/26/23 with suicidal ideation that he subsequently denied. Found to have no competency so guardianship is being pursued febrile 09/09/23 and tested positive for Covid-19 Dementia unspecified on escitalopram, and quetiapine no behavioral issues noted s/p Covid-19 infection s/p isolation finished course of remdesivir oxygenation stable on room air check weekly labs, last 10/10 wnl HTN stable blood pressure on losartan DM2 stable blood sugars at a.m. continue metformin, glargine and insulin sliding scale HLD LDL 58, total cholesterol 115, on Lipitor 40 mg daily dose decreased to lipitor 20 mg and recommend repeat labs in November. BPH finasteride VTE ppx -lovenox Attending Dr. Devyn moraes [facility] In my clinical judgment, the patient requires continued inpatient hospitalization for the following reasons: placement Quality Stroke Does the patient have a stroke diagnosis?: No VTE Prior VTE?: No VTE Risk Level:: Medical - moderate - high VTE Device Contraindication: Treatment Not Tolerated VTE Drug Contraindication: N/A - Med Ordered
[2023-10-11 11:37] LABS: Glucose, Whole Blood 131 mg/dL (60-115)
[2023-10-11 15:35] VITALS: BP 112/59; PULSE 74; RESP 18; TEMP 36.9; O2SAT 96
[2023-10-11 16:18] LABS: Glucose, Whole Blood 121 mg/dL (60-115)
[2023-10-11 19:52] VITALS: BP 114/56; PULSE 73; RESP 18; TEMP 36.5; O2SAT 96
[2023-10-11 19:59] LABS: Glucose, Whole Blood 169 mg/dL (60-115)
[2023-10-11] MEDS: QUEtiapine Fumarate 50 MG TABLET PO (21:00)
[2023-10-11] MEDS: Insulin Glargine,Hum.rec.anlog 100 UNIT/ML 10 ML VIAL 25 UNIT SUBCUT (21:00)
[2023-10-12 03:24] VITALS: BP 129/68; PULSE 68; TEMP 36.2
[2023-10-12 07:59] LABS: Glucose, Whole Blood 128 mg/dL (60-115)
[2023-10-12 08:00] VITALS: BP 119/55; PULSE 65; RESP 18; TEMP 36.1; O2SAT 97
--- NOTE | 2023-10-12 08:38 | P.PNIM_ITS ---
Subjective Subjective Date of Service: 10/12/23 Interval History: seen and examined this morning follow up for placement no overnight events doing well, no specific complaints Review of Systems Review of Systems: Yes all other systems are reviewed and are negative Constitutional Constitutional: Denies chills and Denies fever(s) Cardiovascular Cardiovascular: Denies chest pain Physical Exam 2 Vital Signs: Vital Signs: Last Vital Signs Temp 96.9 F 10/12/23 08:00 Pulse 65 10/12/23 08:00 Resp 18 10/12/23 08:00 BP 119/55 L 10/12/23 08:00 Pulse Ox 97 10/12/23 08:00 O2 Del Method Room Air 10/12/23 08:00 BMI result Body Mass Index 24.0 alert, confused LSCTA Soft abd Objective Data Active Medications Acetaminophen (Acetaminophen 325 Mg Tablet) 650 mg PO Q6H PRN PRN Reason: Pain, Mild (Pain Scale 1-3) Last Admin: 09/15/23 11:48 Dose: 650 mg Documented By: DIMAS Atorvastatin Calcium (Atorvastatin Calcium 20 Mg Tablet) 20 mg PO DAILY [facility] Last Admin: 10/11/23 07:56 Dose: 20 mg Documented By: CHITO Dextrose (Dextrose 50 % 25 Gm/50 Ml Syringe) 25 gm IVPUSH Q15M PRN; Protocol PRN Reason: per Hypoglycemia Standing Ord. Enoxaparin Sodium (Enoxaparin Sodium 40 Mg/0.4 Ml Syringe) 40 mg SUBCUT Q24H [facility] Last Admin: 10/11/23 10:06 Dose: 40 mg Documented By: CHITO Escitalopram Oxalate (Escitalopram Oxalate 10 Mg Tablet) 10 mg PO DAILY [facility] Last Admin: 10/11/23 07:54 Dose: 10 mg Documented By: CHITO Finasteride (Finasteride 5 Mg Tablet) 5 mg PO DAILY [facility] Last Admin: 10/11/23 07:54 Dose: 5 mg Documented By: CHITO Glucose (Glucose Gel 15 Gm Gel..Gram.) 15 gm PO Q15M PRN; Protocol PRN Reason: per Hypoglycemia Standing Ord. Guaifenesin/Dextromethorphan (Guaifenesin Dm 100/10/5 Ml 5 Ml Syrup) 10 ml PO Q6H PRN PRN Reason: cough Insulin Glargine (Insulin Glargine,Hum.Rec.Anlog 100 Unit/Ml 10 Ml Vial) 25 unit SUBCUT BEDTIME [facility] Last Admin: 10/11/23 21:00 Dose: 25 unit Documented By: RADHA Insulin Human Lispro (Insulin Lispro 100 Unit/Ml 3 Ml Vial) 0 unit SUBCUT QIDACHS [facility]; Protocol Last Admin: 10/12/23 08:06 Dose: Not Given Documented By: MERA Non-Admin Reason: No Insulin Coverage Losartan Potassium (Losartan Potassium 25 Mg Tablet) 25 mg PO DAILY [facility]; Protocol Last Admin: 10/11/23 07:53 Dose: 25 mg Documented By: CHITO Metformin HCl (Metformin Hcl 1,000 Mg Tablet) 1,000 mg PO BIDWM [facility] Last Admin: 10/11/23 16:57 Dose: 1,000 mg Documented By: RODNEY Ondansetron HCl (Ondansetron Hcl 4 Mg/2 Ml Vial) 4 mg IVPUSH Q8H PRN PRN Reason: Nausea and Vomiting Quetiapine Fumarate (Quetiapine Fumarate 50 Mg Tablet) 50 mg PO BEDTIME [facility] Last Admin: 10/11/23 21:00 Dose: 50 mg Documented By: RADHA Labs 10/11/23 08:02 10/11/23 08:02 Labs: Laboratory Results - last 24 hr 10/11/23 10/11/23 10/11/23 11:32 16:14 19:55 POC Glucose 131 H 121 H 169 H 10/12/23 07:49 POC Glucose 128 H Assessment and Plan (1) Major neurocognitive disorder due to another medical condition: Status: Acute Plan 73yo M who originally presented to ED 07/26/23 with suicidal ideation that he subsequently denied. Found to have no competency so guardianship is being pursued febrile 09/09/23 and tested positive for Covid-19 Dementia unspecified on escitalopram, and quetiapine no behavioral issues noted OOB for meals and prn s/p Covid-19 infection s/p isolation finished course of remdesivir oxygenation stable on room air check weekly labs, last 10/10 wnl HTN stable blood pressure on losartan DM2 stable blood sugars at a.m. continue metformin, glargine and insulin sliding scale HLD LDL 58, total cholesterol 115, on Lipitor 40 mg daily dose decreased to lipitor 20 mg and recommend repeat labs in November /december. BPH finasteride VTE ppx -lovenox Attending Dr. Devyn moraes [facility] In my clinical judgment, the patient requires continued inpatient hospitalization for the following reasons: placement Quality Stroke Does the patient have a stroke diagnosis?: No VTE Prior VTE?: No VTE Risk Level:: Medical - moderate - high VTE Device Contraindication: Treatment Not Tolerated VTE Drug Contraindication: N/A - Med Ordered
[2023-10-12] MEDS: Escitalopram Oxalate 10 MG TABLET PO (08:52)
[2023-10-12] MEDS: Losartan Potassium 25 MG TABLET PO (08:52)
[2023-10-12] MEDS: metFORMIN HCl 1,000 MG TABLET 1000 MG PO ×2 (08:52→17:02)
[2023-10-12] MEDS: Atorvastatin Calcium 20 MG TABLET PO (08:52)
[2023-10-12] MEDS: Finasteride 5 MG TABLET PO (08:52)
[2023-10-12] MEDS: Enoxaparin Sodium 40 MG/0.4 ML SYRINGE SUBCUT (11:00)
[2023-10-12 11:43] LABS: Glucose, Whole Blood 185 mg/dL (60-115)
[2023-10-12] MEDS: Insulin Lispro 100 UNIT/ML 3 ML VIAL SUBCUT ×2 (11:54→20:02)
[2023-10-12 16:00] VITALS: BP 105/59; PULSE 73; RESP 18; TEMP 36.2; O2SAT 98
[2023-10-12 16:24] LABS: Glucose, Whole Blood 144 mg/dL (60-115)
[2023-10-12 19:21] VITALS: BP 119/61; PULSE 75; RESP 16; TEMP 36.1; O2SAT 95
[2023-10-12 19:36] LABS: Glucose, Whole Blood 209 mg/dL (60-115)
[2023-10-12] MEDS: Insulin Glargine,Hum.rec.anlog 100 UNIT/ML 10 ML VIAL 25 UNIT SUBCUT (20:02)
[2023-10-12] MEDS: QUEtiapine Fumarate 50 MG TABLET PO (20:02)
[2023-10-13 04:00] VITALS: BP 118/65; PULSE 66; RESP 16; TEMP 36; O2SAT 98
[2023-10-13 07:42] VITALS: BP 127/58; PULSE 68; RESP 18; TEMP 36.3; O2SAT 97
--- NOTE | 2023-10-13 07:42 | HO.PM.IMPN ---
Subjective Subjective Date of Service: 10/13/23 Interval History: seen and examined this morning follow up for placement no overnight events doing well, no specific complaints Review of Systems Review of Systems: Yes all other systems are reviewed and are negative Constitutional Constitutional: Denies chills and Denies fever(s) Cardiovascular Cardiovascular: Denies chest pain Physical Exam Vital Signs: Vital Signs: Last Vital Signs Temp 96.8 F 10/13/23 04:00 Pulse 66 10/13/23 04:00 Resp 16 10/13/23 04:00 BP 118/65 10/13/23 04:00 Pulse Ox 98 10/13/23 04:00 O2 Del Method Room Air 10/13/23 04:00 BMI result Body Mass Index 24.0 alert and confused abd soft LSCTA Objective Data Active Medications Acetaminophen (Acetaminophen 325 Mg Tablet) 650 mg PO Q6H PRN PRN Reason: Pain, Mild (Pain Scale 1-3) Last Admin: 09/15/23 11:48 Dose: 650 mg Documented By: DIMAS Atorvastatin Calcium (Atorvastatin Calcium 20 Mg Tablet) 20 mg PO DAILY [facility] Last Admin: 10/12/23 08:52 Dose: 20 mg Documented By: MERA Dextrose (Dextrose 50 % 25 Gm/50 Ml Syringe) 25 gm IVPUSH Q15M PRN; Protocol PRN Reason: per Hypoglycemia Standing Ord. Enoxaparin Sodium (Enoxaparin Sodium 40 Mg/0.4 Ml Syringe) 40 mg SUBCUT Q24H [facility] Last Admin: 10/12/23 11:00 Dose: 40 mg Documented By: MERA Escitalopram Oxalate (Escitalopram Oxalate 10 Mg Tablet) 10 mg PO DAILY [facility] Last Admin: 10/12/23 08:52 Dose: 10 mg Documented By: MERA Finasteride (Finasteride 5 Mg Tablet) 5 mg PO DAILY [facility] Last Admin: 10/12/23 08:52 Dose: 5 mg Documented By: MERA Glucose (Glucose Gel 15 Gm Gel..Gram.) 15 gm PO Q15M PRN; Protocol PRN Reason: per Hypoglycemia Standing Ord. Guaifenesin/Dextromethorphan (Guaifenesin Dm 100/10/5 Ml 5 Ml Syrup) 10 ml PO Q6H PRN PRN Reason: cough Insulin Glargine (Insulin Glargine,Hum.Rec.Anlog 100 Unit/Ml 10 Ml Vial) 25 unit SUBCUT BEDTIME [facility] Last Admin: 10/12/23 20:02 Dose: 25 unit Documented By: ENEDINA Insulin Human Lispro (Insulin Lispro 100 Unit/Ml 3 Ml Vial) 0 unit SUBCUT QIDACHS [facility]; Protocol Last Admin: 10/12/23 20:02 Dose: 4 unit Documented By: ENEDINA Losartan Potassium (Losartan Potassium 25 Mg Tablet) 25 mg PO DAILY [facility]; Protocol Last Admin: 10/12/23 08:52 Dose: 25 mg Documented By: MERA Metformin HCl (Metformin Hcl 1,000 Mg Tablet) 1,000 mg PO BIDWM [facility] Last Admin: 10/12/23 17:02 Dose: 1,000 mg Documented By: MERA Ondansetron HCl (Ondansetron Hcl 4 Mg/2 Ml Vial) 4 mg IVPUSH Q8H PRN PRN Reason: Nausea and Vomiting Quetiapine Fumarate (Quetiapine Fumarate 50 Mg Tablet) 50 mg PO BEDTIME [facility] Last Admin: 10/12/23 20:02 Dose: 50 mg Documented By: ENEDINA Labs 10/11/23 08:02 10/11/23 08:02 Labs: Laboratory Results - last 24 hr 10/12/23 10/12/23 10/12/23 07:49 11:20 16:20 POC Glucose 128 H 185 H 144 H 10/12/23 19:23 POC Glucose 209 H Assessment and Plan (1) Major neurocognitive disorder due to another medical condition: Status: Acute Plan 73yo M who originally presented to ED 07/26/23 with suicidal ideation that he subsequently denied. Found to have no competency so guardianship is being pursued febrile 09/09/23 and tested positive for Covid-19 Dementia unspecified on escitalopram, and quetiapine no behavioral issues noted OOB for meals and prn s/p Covid-19 infection s/p isolation finished course of remdesivir oxygenation stable on room air check weekly labs, last 10/10 wnl HTN stable blood pressure on losartan DM2 stable blood sugars at a.m. continue metformin, glargine and insulin sliding scale HLD LDL 58, total cholesterol 115, on Lipitor 40 mg daily dose decreased to lipitor 20 mg and recommend repeat labs in November. BPH finasteride VTE ppx -lovenox Attending Dr. Rogelio moraes [facility] In my clinical judgment, the patient requires continued inpatient hospitalization for the following reasons: placement Quality Stroke Does the patient have a stroke diagnosis?: No VTE Prior VTE?: No VTE Risk Level:: Medical - moderate - high VTE Device Contraindication: Treatment Not Tolerated VTE Drug Contraindication: N/A - Med Ordered
[2023-10-13 07:48] LABS: Glucose, Whole Blood 121 mg/dL (60-115)
[2023-10-13] MEDS: Finasteride 5 MG TABLET PO (08:38)
[2023-10-13] MEDS: Losartan Potassium 25 MG TABLET PO (08:38)
[2023-10-13] MEDS: Escitalopram Oxalate 10 MG TABLET PO (08:38)
[2023-10-13] MEDS: metFORMIN HCl 1,000 MG TABLET 1000 MG PO ×2 (08:38→17:27)
[2023-10-13] MEDS: Atorvastatin Calcium 20 MG TABLET PO (08:40)
[2023-10-13] MEDS: Enoxaparin Sodium 40 MG/0.4 ML SYRINGE SUBCUT (09:33)
[2023-10-13 11:18] LABS: Glucose, Whole Blood 177 mg/dL (60-115)
--- NOTE | 2023-10-13 11:33 | MHC.CM.PN ---
EMR reviewed. No changes to dc plan. CM will continue to follow.
[2023-10-13] MEDS: Insulin Lispro 100 UNIT/ML 3 ML VIAL SUBCUT ×2 (11:51→21:35)
[2023-10-13 15:31] VITALS: BP 112/57; PULSE 72; RESP 18; TEMP 36.2; O2SAT 98
[2023-10-13 15:50] LABS: Glucose, Whole Blood 136 mg/dL (60-115)
[2023-10-13 19:36] VITALS: BP 131/63; PULSE 74; RESP 18; TEMP 36.6; O2SAT 96
[2023-10-13 20:00] VITALS: BP 131/63; PULSE 74; RESP 18; TEMP 36.2; O2SAT 97
[2023-10-13 20:43] LABS: Glucose, Whole Blood 157 mg/dL (60-115)
[2023-10-13] MEDS: QUEtiapine Fumarate 50 MG TABLET PO (21:35)
[2023-10-13] MEDS: Insulin Glargine,Hum.rec.anlog 100 UNIT/ML 10 ML VIAL 25 UNIT SUBCUT (21:36)
[2023-10-14 03:24] VITALS: BP 101/59; PULSE 72; RESP 16; TEMP 36; O2SAT 97
[2023-10-14 07:25] VITALS: BP 124/65; PULSE 72; RESP 18; TEMP 36.3; O2SAT 99
[2023-10-14 07:31] LABS: Glucose, Whole Blood 133 mg/dL (60-115)
[2023-10-14 07:32] VITALS: BP 124/65; PULSE 72; RESP 18; TEMP 36.3; O2SAT 98
[2023-10-14] MEDS: Losartan Potassium 25 MG TABLET PO (07:52)
[2023-10-14] MEDS: Escitalopram Oxalate 10 MG TABLET PO (07:52)
[2023-10-14] MEDS: metFORMIN HCl 1,000 MG TABLET 1000 MG PO ×2 (07:53→16:32)
[2023-10-14] MEDS: Atorvastatin Calcium 20 MG TABLET PO (07:53)
[2023-10-14] MEDS: Finasteride 5 MG TABLET PO (07:53)
--- NOTE | 2023-10-14 08:51 | HO.PM.IMPN ---
Subjective Subjective Date of Service: 10/14/23 Interval History: seen and examined this morning follow up for placement no overnight events doing well, no specific complaints Review of Systems Review of Systems: Yes all other systems are reviewed and are negative Constitutional Constitutional: Denies chills and Denies fever(s) Cardiovascular Cardiovascular: Denies chest pain Physical Exam Vital Signs: Vital Signs: Last Vital Signs Temp 97.3 F 10/14/23 07:32 Pulse 72 10/14/23 07:32 Resp 18 10/14/23 07:32 BP 124/65 10/14/23 07:32 Pulse Ox 98 10/14/23 07:32 O2 Del Method Room Air 10/14/23 07:32 BMI result Body Mass Index 24.0 Appearing in no acute distress lung sounds are clear to auscultation heart regular rate rhythm, clear S1, S2 positive bowel sounds, abdomen is soft, nontender neuro patient is alert Objective Data Active Medications Acetaminophen (Acetaminophen 325 Mg Tablet) 650 mg PO Q6H PRN PRN Reason: Pain, Mild (Pain Scale 1-3) Last Admin: 09/15/23 11:48 Dose: 650 mg Documented By: DIMAS Atorvastatin Calcium (Atorvastatin Calcium 20 Mg Tablet) 20 mg PO DAILY [facility] Last Admin: 10/14/23 07:53 Dose: 20 mg Documented By: DENISSE Dextrose (Dextrose 50 % 25 Gm/50 Ml Syringe) 25 gm IVPUSH Q15M PRN; Protocol PRN Reason: per Hypoglycemia Standing Ord. Enoxaparin Sodium (Enoxaparin Sodium 40 Mg/0.4 Ml Syringe) 40 mg SUBCUT Q24H [facility] Last Admin: 10/13/23 09:33 Dose: 40 mg Documented By: WALT Escitalopram Oxalate (Escitalopram Oxalate 10 Mg Tablet) 10 mg PO DAILY [facility] Last Admin: 10/14/23 07:52 Dose: 10 mg Documented By: DENISSE Finasteride (Finasteride 5 Mg Tablet) 5 mg PO DAILY [facility] Last Admin: 10/14/23 07:53 Dose: 5 mg Documented By: DENISSE Glucose (Glucose Gel 15 Gm Gel..Gram.) 15 gm PO Q15M PRN; Protocol PRN Reason: per Hypoglycemia Standing Ord. Guaifenesin/Dextromethorphan (Guaifenesin Dm 100/10/5 Ml 5 Ml Syrup) 10 ml PO Q6H PRN PRN Reason: cough Insulin Glargine (Insulin Glargine,Hum.Rec.Anlog 100 Unit/Ml 10 Ml Vial) 25 unit SUBCUT BEDTIME [facility] Last Admin: 10/13/23 21:36 Dose: 25 unit Documented By: ENEDINA Insulin Human Lispro (Insulin Lispro 100 Unit/Ml 3 Ml Vial) 0 unit SUBCUT QIDACHS [facility]; Protocol Last Admin: 10/14/23 07:33 Dose: Not Given Documented By: DENISSE Non-Admin Reason: No Insulin Coverage Losartan Potassium (Losartan Potassium 25 Mg Tablet) 25 mg PO DAILY [facility]; Protocol Last Admin: 10/14/23 07:52 Dose: 25 mg Documented By: DENISSE Metformin HCl (Metformin Hcl 1,000 Mg Tablet) 1,000 mg PO BIDWM [facility] Last Admin: 10/14/23 07:53 Dose: 1,000 mg Documented By: DENISSE Ondansetron HCl (Ondansetron Hcl 4 Mg/2 Ml Vial) 4 mg IVPUSH Q8H PRN PRN Reason: Nausea and Vomiting Quetiapine Fumarate (Quetiapine Fumarate 50 Mg Tablet) 50 mg PO BEDTIME [facility] Last Admin: 10/13/23 21:35 Dose: 50 mg Documented By: ENEDINA Labs 10/11/23 08:02 10/11/23 08:02 Labs: Laboratory Results - last 24 hr 10/13/23 10/13/23 10/13/23 11:11 15:32 20:19 POC Glucose 177 H 136 H 157 H 10/14/23 07:23 POC Glucose 133 H Assessment and Plan (1) Major neurocognitive disorder due to another medical condition: Status: Acute Plan 73yo M who originally presented to ED 07/26/23 with suicidal ideation that he subsequently denied. Found to have no competency so guardianship is being pursued febrile 09/09/23 and tested positive for Covid-19 Dementia unspecified on escitalopram, and quetiapine no behavioral issues noted OOB for meals and prn s/p Covid-19 infection s/p isolation finished course of remdesivir oxygenation stable on room air check weekly labs, last 10/10 wnl HTN stable blood pressure on losartan DM2 stable blood sugars at a.m. continue metformin, glargine and insulin sliding scale HLD LDL 58, total cholesterol 115, on Lipitor 40 mg daily dose decreased to lipitor 20 mg and recommend repeat labs in November /december. BPH finasteride VTE ppx -lovenox Attending Dr. Rogelio moraes [facility] In my clinical judgment, the patient requires continued inpatient hospitalization for the following reasons: placement Quality Stroke Does the patient have a stroke diagnosis?: No VTE Prior VTE?: No VTE Risk Level:: Medical - moderate - high VTE Device Contraindication: Treatment Not Tolerated VTE Drug Contraindication: N/A - Med Ordered
[2023-10-14 11:35] LABS: Glucose, Whole Blood 139 mg/dL (60-115)
[2023-10-14] MEDS: Enoxaparin Sodium 40 MG/0.4 ML SYRINGE SUBCUT (11:38)
[2023-10-14 15:25] VITALS: BP 127/60; PULSE 80; RESP 18; TEMP 36.3; O2SAT 98
[2023-10-14 16:18] LABS: Glucose, Whole Blood 114 mg/dL (60-115)
[2023-10-14 19:54] VITALS: BP 118/57; PULSE 75; RESP 18; TEMP 36.3; O2SAT 98
[2023-10-14 20:41] LABS: Glucose, Whole Blood 144 mg/dL (60-115)
[2023-10-14] MEDS: QUEtiapine Fumarate 50 MG TABLET PO (20:47)
[2023-10-14] MEDS: Insulin Glargine,Hum.rec.anlog 100 UNIT/ML 10 ML VIAL 25 UNIT SUBCUT (20:47)
[2023-10-15 03:42] VITALS: BP 110/67; PULSE 66; RESP 16; TEMP 36.1; O2SAT 96
[2023-10-15 07:19] VITALS: BP 109/63; PULSE 66; RESP 16; TEMP 36; O2SAT 96
[2023-10-15 07:26] LABS: Glucose, Whole Blood 128 mg/dL (60-115)
[2023-10-15] MEDS: Losartan Potassium 25 MG TABLET PO (07:54)
[2023-10-15] MEDS: Atorvastatin Calcium 20 MG TABLET PO (07:54)
[2023-10-15] MEDS: metFORMIN HCl 1,000 MG TABLET 1000 MG PO ×2 (07:54→17:13)
[2023-10-15] MEDS: Escitalopram Oxalate 10 MG TABLET PO (07:55)
[2023-10-15] MEDS: Finasteride 5 MG TABLET PO (07:55)
[2023-10-15] MEDS: Enoxaparin Sodium 40 MG/0.4 ML SYRINGE SUBCUT (09:40)
--- NOTE | 2023-10-15 10:32 | MHC.CM.PN ---
EMR reviewed. No change to dc plan. LM for guardian requesting update on asset search. CM will continue to follow.
[2023-10-15 11:02] LABS: Glucose, Whole Blood 216 mg/dL (60-115)
--- NOTE | 2023-10-15 11:50 | HO.PM.IMPN ---
Subjective Subjective Date of Service: 10/15/23 Interval History: Being followed for placement Patient offers no acute complaints, tolerating diet denies nausea, no vomiting, no abdominal pain, no fevers, no chills no other acute events overnight. Review of Systems All other system reviewed and negative. Physical Exam Vital Signs: Vital Signs: Last Vital Signs Temp 96.8 F 10/15/23 07:19 Pulse 66 10/15/23 07:19 Resp 16 10/15/23 07:19 BP 109/63 10/15/23 07:19 Pulse Ox 96 10/15/23 07:19 O2 Del Method Room Air 10/15/23 07:19 BMI result Body Mass Index 24.0 Const: Other: Gen: in no acute distress, legally blind Neck: supple Lungs: clear to auscultation bilaterally Heart: regular rate and rhythm, no murmurs Abd: soft, non-tender, non-distended, bowel sounds audible Ext: no edema Skin: warm/well-perfused Neuro: Moving all 4 extremities, speech clear. Psych: impaired insight Objective Data Active Medications Acetaminophen (Acetaminophen 325 Mg Tablet) 650 mg PO Q6H PRN PRN Reason: Pain, Mild (Pain Scale 1-3) Last Admin: 09/15/23 11:48 Dose: 650 mg Documented By: DIMAS Atorvastatin Calcium (Atorvastatin Calcium 20 Mg Tablet) 20 mg PO DAILY [facility] Last Admin: 10/15/23 07:54 Dose: 20 mg Documented By: ARLYN Dextrose (Dextrose 50 % 25 Gm/50 Ml Syringe) 25 gm IVPUSH Q15M PRN; Protocol PRN Reason: per Hypoglycemia Standing Ord. Enoxaparin Sodium (Enoxaparin Sodium 40 Mg/0.4 Ml Syringe) 40 mg SUBCUT Q24H [facility] Last Admin: 10/15/23 09:40 Dose: 40 mg Documented By: JUAN ANTONIO Escitalopram Oxalate (Escitalopram Oxalate 10 Mg Tablet) 10 mg PO DAILY [facility] Last Admin: 10/15/23 07:55 Dose: 10 mg Documented By: ARLYN Finasteride (Finasteride 5 Mg Tablet) 5 mg PO DAILY [facility] Last Admin: 10/15/23 07:55 Dose: 5 mg Documented By: ARLYN Glucose (Glucose Gel 15 Gm Gel..Gram.) 15 gm PO Q15M PRN; Protocol PRN Reason: per Hypoglycemia Standing Ord. Guaifenesin/Dextromethorphan (Guaifenesin Dm 100/10/5 Ml 5 Ml Syrup) 10 ml PO Q6H PRN PRN Reason: cough Insulin Glargine (Insulin Glargine,Hum.Rec.Anlog 100 Unit/Ml 10 Ml Vial) 25 unit SUBCUT BEDTIME [facility] Last Admin: 10/14/23 20:47 Dose: 25 unit Documented By: LAUREN Insulin Human Lispro (Insulin Lispro 100 Unit/Ml 3 Ml Vial) 0 unit SUBCUT QIDACHS [facility]; Protocol Last Admin: 10/15/23 07:57 Dose: Not Given Documented By: JUAN ANTONIO Non-Admin Reason: No Insulin Coverage Losartan Potassium (Losartan Potassium 25 Mg Tablet) 25 mg PO DAILY [facility]; Protocol Last Admin: 10/15/23 07:54 Dose: 25 mg Documented By: ARLYN Metformin HCl (Metformin Hcl 1,000 Mg Tablet) 1,000 mg PO BIDWM [facility] Last Admin: 10/15/23 07:54 Dose: 1,000 mg Documented By: ARLYN Ondansetron HCl (Ondansetron Hcl 4 Mg/2 Ml Vial) 4 mg IVPUSH Q8H PRN PRN Reason: Nausea and Vomiting Quetiapine Fumarate (Quetiapine Fumarate 50 Mg Tablet) 50 mg PO BEDTIME [facility] Last Admin: 10/14/23 20:47 Dose: 50 mg Documented By: LAUREN Labs 10/11/23 08:02 10/11/23 08:02 Labs: Laboratory Results - last 24 hr 10/14/23 10/14/23 10/15/23 16:10 19:57 07:22 POC Glucose 114 144 H 128 H 10/15/23 10:58 POC Glucose 216 H Assessment and Plan (1) HLD (hyperlipidemia): Status: Acute (2) HTN (hypertension): Status: Acute Plan 73yo M who originally presented to ED 07/26/23 with suicidal ideation that he subsequently denied. Found to have no competency so guardianship is being pursued febrile 09/09/23 and tested positive for Covid-19 Dementia unspecified on escitalopram, and quetiapine no behavioral issues noted s/p Covid-19 infection s/p isolation finished course of remdesivir oxygenation stable on room air check weekly labs, last 10/10 wnl HTN stable blood pressure on losartan DM2 stable blood sugars at a.m. continue metformin, glargine and insulin sliding scale HLD LDL 58, total cholesterol 115, on Lipitor 40 mg daily dose decreased to lipitor 20 mg and recommend repeat labs in November. BPH finasteride VTE ppx -lovenox dispo LTC In my clinical judgment, the patient requires continued inpatient hospitalization for the following reasons: placement Quality Stroke Does the patient have a stroke diagnosis?: No VTE Prior VTE?: No VTE Risk Level:: Medical - moderate - high VTE Device Contraindication: Treatment Not Tolerated VTE Drug Contraindication: N/A - Med Ordered
[2023-10-15] MEDS: Insulin Lispro 100 UNIT/ML 3 ML VIAL SUBCUT ×2 (12:12→21:19)
[2023-10-15 15:28] VITALS: BP 111/57; PULSE 72; RESP 16; TEMP 36.3; O2SAT 96
[2023-10-15 16:16] LABS: Glucose, Whole Blood 111 mg/dL (60-115)
[2023-10-15 20:00] VITALS: BP 122/59; PULSE 77; RESP 18; TEMP 36.7; O2SAT 98
[2023-10-15 20:56] LABS: Glucose, Whole Blood 164 mg/dL (60-115)
[2023-10-15] MEDS: QUEtiapine Fumarate 50 MG TABLET PO (21:19)
[2023-10-15] MEDS: Insulin Glargine,Hum.rec.anlog 100 UNIT/ML 10 ML VIAL 25 UNIT SUBCUT (21:19)
[2023-10-16 04:00] VITALS: BP 108/59; PULSE 75; RESP 16; TEMP 36.2; O2SAT 98
[2023-10-16 07:09] VITALS: BP 133/70; PULSE 74; RESP 18; TEMP 36.4; O2SAT 98
[2023-10-16 07:23] LABS: Glucose, Whole Blood 121 mg/dL (60-115)
[2023-10-16] MEDS: metFORMIN HCl 1,000 MG TABLET 1000 MG PO ×2 (09:51→17:10)
[2023-10-16] MEDS: Enoxaparin Sodium 40 MG/0.4 ML SYRINGE SUBCUT (09:51)
[2023-10-16] MEDS: Finasteride 5 MG TABLET PO (09:51)
[2023-10-16] MEDS: Losartan Potassium 25 MG TABLET PO (09:51)
[2023-10-16] MEDS: Atorvastatin Calcium 20 MG TABLET PO (09:51)
[2023-10-16] MEDS: Escitalopram Oxalate 10 MG TABLET PO (09:51)
--- NOTE | 2023-10-16 11:20 | HO.PM.IMPN ---
Subjective Subjective Date of Service: 10/16/23 Interval History: Being followed for placement Offers no acute complaints, tolerating diet, no chest pain, no dizziness, no shortness of breath, no acute issues overnight. Review of Systems All other system reviewed and negative Physical Exam Vital Signs: Vital Signs: Last Vital Signs Temp 97.6 F 10/16/23 07:09 Pulse 74 10/16/23 07:09 Resp 18 10/16/23 07:09 BP 133/70 10/16/23 07:09 Pulse Ox 98 10/16/23 07:09 O2 Del Method Room Air 10/16/23 07:09 BMI result Body Mass Index 24.0 Const: Other: Gen: in no acute distress, legally blind Neck: supple Lungs: clear to auscultation bilaterally Heart: regular rate and rhythm, no murmurs Abd: soft, non-tender, non-distended, bowel sounds audible Ext: no edema Skin: warm/well-perfused Neuro: Moving all 4 extremities, speech clear. Psych: impaired insight Objective Data Active Medications Acetaminophen (Acetaminophen 325 Mg Tablet) 650 mg PO Q6H PRN PRN Reason: Pain, Mild (Pain Scale 1-3) Last Admin: 09/15/23 11:48 Dose: 650 mg Documented By: DIMAS Atorvastatin Calcium (Atorvastatin Calcium 20 Mg Tablet) 20 mg PO DAILY [facility] Last Admin: 10/16/23 09:51 Dose: 20 mg Documented By: VANIA Dextrose (Dextrose 50 % 25 Gm/50 Ml Syringe) 25 gm IVPUSH Q15M PRN; Protocol PRN Reason: per Hypoglycemia Standing Ord. Enoxaparin Sodium (Enoxaparin Sodium 40 Mg/0.4 Ml Syringe) 40 mg SUBCUT Q24H [facility] Last Admin: 10/16/23 09:51 Dose: 40 mg Documented By: VANIA Escitalopram Oxalate (Escitalopram Oxalate 10 Mg Tablet) 10 mg PO DAILY [facility] Last Admin: 10/16/23 09:51 Dose: 10 mg Documented By: VANIA Finasteride (Finasteride 5 Mg Tablet) 5 mg PO DAILY [facility] Last Admin: 10/16/23 09:51 Dose: 5 mg Documented By: VANIA Glucose (Glucose Gel 15 Gm Gel..Gram.) 15 gm PO Q15M PRN; Protocol PRN Reason: per Hypoglycemia Standing Ord. Guaifenesin/Dextromethorphan (Guaifenesin Dm 100/10/5 Ml 5 Ml Syrup) 10 ml PO Q6H PRN PRN Reason: cough Insulin Glargine (Insulin Glargine,Hum.Rec.Anlog 100 Unit/Ml 10 Ml Vial) 25 unit SUBCUT BEDTIME [facility] Last Admin: 10/15/23 21:19 Dose: 25 unit Documented By: LAUREN Insulin Human Lispro (Insulin Lispro 100 Unit/Ml 3 Ml Vial) 0 unit SUBCUT QIDACHS [facility]; Protocol Last Admin: 10/16/23 07:53 Dose: Not Given Documented By: VANIA Non-Admin Reason: No Insulin Coverage Losartan Potassium (Losartan Potassium 25 Mg Tablet) 25 mg PO DAILY [facility]; Protocol Last Admin: 10/16/23 09:51 Dose: 25 mg Documented By: VANIA Metformin HCl (Metformin Hcl 1,000 Mg Tablet) 1,000 mg PO BIDWM [facility] Last Admin: 10/16/23 09:51 Dose: 1,000 mg Documented By: VANIA Ondansetron HCl (Ondansetron Hcl 4 Mg/2 Ml Vial) 4 mg IVPUSH Q8H PRN PRN Reason: Nausea and Vomiting Quetiapine Fumarate (Quetiapine Fumarate 50 Mg Tablet) 50 mg PO BEDTIME [facility] Last Admin: 10/15/23 21:19 Dose: 50 mg Documented By: LAUREN Labs 10/11/23 08:02 10/11/23 08:02 Labs: Laboratory Results - last 24 hr 10/15/23 10/15/23 10/16/23 16:04 20:29 07:10 POC Glucose 111 164 H 121 H Assessment and Plan (1) HLD (hyperlipidemia): Status: Acute (2) HTN (hypertension): Status: Acute Plan 73yo M who originally presented to ED 07/26/23 with suicidal ideation that he subsequently denied. Found to have no competency so guardianship is being pursued febrile 09/09/23 and tested positive for Covid-19 Dementia unspecified on escitalopram, and quetiapine no behavioral issues noted s/p Covid-19 infection s/p isolation finished course of remdesivir oxygenation stable on room air check weekly labs, last 10/10 wnl HTN stable blood pressure on losartan DM2 stable blood sugars at a.m. continue metformin, glargine and insulin sliding scale HLD LDL 58, total cholesterol 115, on Lipitor 40 mg daily dose decreased to lipitor 20 mg and recommend repeat labs in November /december. BPH finasteride VTE ppx -lovenox dispo LTC In my clinical judgment, the patient requires continued inpatient hospitalization for the following reasons: placement Quality Stroke Does the patient have a stroke diagnosis?: No VTE Prior VTE?: No VTE Risk Level:: Medical - moderate - high VTE Device Contraindication: Treatment Not Tolerated VTE Drug Contraindication: N/A - Med Ordered
[2023-10-16 11:24] LABS: Glucose, Whole Blood 254 mg/dL (60-115)
[2023-10-16] MEDS: Insulin Lispro 100 UNIT/ML 3 ML VIAL SUBCUT (11:52)
[2023-10-16 15:24] VITALS: BP 108/59; PULSE 68; RESP 18; TEMP 36.3; O2SAT 96
[2023-10-16 16:21] LABS: Glucose, Whole Blood 94 mg/dL (60-115)
[2023-10-16 19:49] VITALS: BP 112/58; PULSE 75; RESP 18; TEMP 36.4; O2SAT 98
[2023-10-16 20:16] LABS: Glucose, Whole Blood 148 mg/dL (60-115)
[2023-10-16] MEDS: Insulin Glargine,Hum.rec.anlog 100 UNIT/ML 10 ML VIAL 25 UNIT SUBCUT (20:28)
[2023-10-16] MEDS: QUEtiapine Fumarate 50 MG TABLET PO (20:28)
[2023-10-17 03:26] VITALS: BP 105/62; PULSE 71; RESP 18; TEMP 36.3; O2SAT 97
[2023-10-17 07:17] VITALS: BP 130/62; PULSE 70; RESP 16; TEMP 36; O2SAT 98
[2023-10-17 07:46] LABS: Glucose, Whole Blood 113 mg/dL (60-115)
[2023-10-17] MEDS: Finasteride 5 MG TABLET PO (07:59)
[2023-10-17] MEDS: Escitalopram Oxalate 10 MG TABLET PO (07:59)
[2023-10-17] MEDS: metFORMIN HCl 1,000 MG TABLET 1000 MG PO ×2 (07:59→16:39)
[2023-10-17] MEDS: Losartan Potassium 25 MG TABLET PO (07:59)
[2023-10-17] MEDS: Atorvastatin Calcium 20 MG TABLET PO (07:59)
[2023-10-17] MEDS: Enoxaparin Sodium 40 MG/0.4 ML SYRINGE SUBCUT (09:03)
--- NOTE | 2023-10-17 11:15 | HO.PM.IMPN ---
Subjective Subjective Date of Service: 10/17/23 Interval History: Being followed for placement Offers no acute complaints, tolerating diet, no chest pain, no dizziness, no shortness of breath, no acute issues overnight. Review of Systems All other system reviewed and negative. Physical Exam Vital Signs: Vital Signs: Last Vital Signs Temp 96.8 F 10/17/23 07:17 Pulse 70 10/17/23 07:17 Resp 16 10/17/23 07:17 BP 130/62 10/17/23 07:17 Pulse Ox 98 10/17/23 07:17 O2 Del Method Room Air 10/17/23 07:17 BMI result Body Mass Index 24.0 Const: Other: Gen: in no acute distress, legally blind Neck: supple Lungs: clear to auscultation bilaterally Heart: regular rate and rhythm, no murmurs Abd: soft, non-tender, non-distended, bowel sounds audible Ext: no edema Skin: warm/well-perfused Neuro: Moving all 4 extremities, speech clear. Psych: impaired insight Objective Data Active Medications Acetaminophen (Acetaminophen 325 Mg Tablet) 650 mg PO Q6H PRN PRN Reason: Pain, Mild (Pain Scale 1-3) Last Admin: 09/15/23 11:48 Dose: 650 mg Documented By: DIMAS Atorvastatin Calcium (Atorvastatin Calcium 20 Mg Tablet) 20 mg PO DAILY [facility] Last Admin: 10/17/23 07:59 Dose: 20 mg Documented By: RODNEY Dextrose (Dextrose 50 % 25 Gm/50 Ml Syringe) 25 gm IVPUSH Q15M PRN; Protocol PRN Reason: per Hypoglycemia Standing Ord. Enoxaparin Sodium (Enoxaparin Sodium 40 Mg/0.4 Ml Syringe) 40 mg SUBCUT Q24H [facility] Last Admin: 10/17/23 09:03 Dose: 40 mg Documented By: RODNEY Escitalopram Oxalate (Escitalopram Oxalate 10 Mg Tablet) 10 mg PO DAILY [facility] Last Admin: 10/17/23 07:59 Dose: 10 mg Documented By: RODNEY Finasteride (Finasteride 5 Mg Tablet) 5 mg PO DAILY [facility] Last Admin: 10/17/23 07:59 Dose: 5 mg Documented By: RODNEY Glucose (Glucose Gel 15 Gm Gel..Gram.) 15 gm PO Q15M PRN; Protocol PRN Reason: per Hypoglycemia Standing Ord. Guaifenesin/Dextromethorphan (Guaifenesin Dm 100/10/5 Ml 5 Ml Syrup) 10 ml PO Q6H PRN PRN Reason: cough Insulin Glargine (Insulin Glargine,Hum.Rec.Anlog 100 Unit/Ml 10 Ml Vial) 25 unit SUBCUT BEDTIME [facility] Last Admin: 10/16/23 20:28 Dose: 25 unit Documented By: WILNER Insulin Human Lispro (Insulin Lispro 100 Unit/Ml 3 Ml Vial) 0 unit SUBCUT QIDACHS [facility]; Protocol Last Admin: 10/17/23 07:59 Dose: Not Given Documented By: RODNEY Non-Admin Reason: No Insulin Coverage Losartan Potassium (Losartan Potassium 25 Mg Tablet) 25 mg PO DAILY [facility]; Protocol Last Admin: 10/17/23 07:59 Dose: 25 mg Documented By: RODNEY Metformin HCl (Metformin Hcl 1,000 Mg Tablet) 1,000 mg PO BIDWM [facility] Last Admin: 10/17/23 07:59 Dose: 1,000 mg Documented By: RODNEY Ondansetron HCl (Ondansetron Hcl 4 Mg/2 Ml Vial) 4 mg IVPUSH Q8H PRN PRN Reason: Nausea and Vomiting Quetiapine Fumarate (Quetiapine Fumarate 50 Mg Tablet) 50 mg PO BEDTIME [facility] Last Admin: 10/16/23 20:28 Dose: 50 mg Documented By: WILNER Labs 10/11/23 08:02 10/11/23 08:02 Labs: Laboratory Results - last 24 hr 10/16/23 10/16/23 10/16/23 11:20 16:16 20:11 POC Glucose 254 H 94 148 H 10/17/23 07:21 POC Glucose 113 Assessment and Plan (1) HLD (hyperlipidemia): Status: Acute (2) HTN (hypertension): Status: Acute Plan 73yo M who originally presented to ED 07/26/23 with suicidal ideation that he subsequently denied. Found to have no competency so guardianship is being pursued febrile 09/09/23 and tested positive for Covid-19 Dementia unspecified on escitalopram, and quetiapine no behavioral issues noted s/p Covid-19 infection s/p isolation finished course of remdesivir oxygenation stable on room air check weekly labs, last 10/10 wnl HTN stable blood pressure on losartan DM2 stable blood sugars at a.m. continue metformin, glargine and insulin sliding scale HLD LDL 58, total cholesterol 115, on Lipitor 40 mg daily dose decreased to lipitor 20 mg and recommend repeat labs in November. BPH finasteride VTE ppx -lovenox dispo LTC In my clinical judgment, the patient requires continued inpatient hospitalization for the following reasons: placement Quality Stroke Does the patient have a stroke diagnosis?: No VTE Prior VTE?: No VTE Risk Level:: Medical - moderate - high VTE Device Contraindication: Treatment Not Tolerated VTE Drug Contraindication: N/A - Med Ordered
--- NOTE | 2023-10-17 11:24 | MHC.CM.PN ---
EMR REVIEWED. NO CHANGES TO DC PLAN. PER GUARDIAN'S OFFICE NO PROGRESS IN ASSET SEARCH. CM WILL CONTINUE TO FOLLOW.
[2023-10-17 11:25] LABS: Glucose, Whole Blood 157 mg/dL (60-115)
[2023-10-17] MEDS: Insulin Lispro 100 UNIT/ML 3 ML VIAL SUBCUT ×2 (11:47→21:01)
[2023-10-17 15:30] VITALS: BP 107/54; PULSE 75; RESP 16; TEMP 36.2; O2SAT 98
[2023-10-17 16:20] LABS: Glucose, Whole Blood 145 mg/dL (60-115)
[2023-10-17 19:56] VITALS: BP 107/56; PULSE 82; RESP 18; TEMP 36.9; O2SAT 97
[2023-10-17 20:03] LABS: Glucose, Whole Blood 208 mg/dL (60-115)
[2023-10-17] MEDS: Insulin Glargine,Hum.rec.anlog 100 UNIT/ML 10 ML VIAL 25 UNIT SUBCUT (21:01)
[2023-10-17] MEDS: QUEtiapine Fumarate 50 MG TABLET PO (21:01)
[2023-10-18 07:30] VITALS: BP 128/66; PULSE 75; RESP 14; TEMP 36.6; O2SAT 98
[2023-10-18 07:44] LABS: Glucose, Whole Blood 113 mg/dL (60-115)
[2023-10-18] MEDS: Losartan Potassium 25 MG TABLET PO (08:01)
[2023-10-18] MEDS: Escitalopram Oxalate 10 MG TABLET PO (08:01)
[2023-10-18] MEDS: metFORMIN HCl 1,000 MG TABLET 1000 MG PO ×2 (08:01→16:41)
[2023-10-18] MEDS: Atorvastatin Calcium 20 MG TABLET PO (08:01)
[2023-10-18] MEDS: Finasteride 5 MG TABLET PO (08:03)
[2023-10-18 08:16] LABS: Creatinine Clr Calc Pharmacy 83.4; Estimated Glomerular Filt Rate > 60
[2023-10-18] MEDS: Enoxaparin Sodium 40 MG/0.4 ML SYRINGE SUBCUT (09:41)
[2023-10-18 11:14] LABS: Glucose, Whole Blood 190 mg/dL (60-115)
--- NOTE | 2023-10-18 11:49 | P.PNIM_ITS ---
Subjective Subjective Date of Service: 10/18/23 Interval History: Being followed for placement Offers no complaints, tolerating diet, no nausea, no vomiting, no abdominal pain, no URI symptoms. No acute issues Overnight. Review of Systems All other system reviewed and negative. Physical Exam 2 Vital Signs: Vital Signs: Last Vital Signs Temp 97.8 F 10/18/23 07:30 Pulse 75 10/18/23 07:30 Resp 14 10/18/23 07:30 BP 128/66 10/18/23 07:30 Pulse Ox 98 10/18/23 07:30 O2 Del Method Room Air 10/18/23 07:30 BMI result Body Mass Index 24.0 Const: Other: Gen: Awake alert, in no acute distress, legally blind Neck: supple Lungs: clear to auscultation bilaterally Heart: regular rate and rhythm, no murmurs Abd: soft, non-tender, non-distended, bowel sounds audible Ext: no edema Skin: warm/well-perfused Neuro: Moving all 4 extremities, speech clear. Psych: impaired insight Objective Data Active Medications Acetaminophen (Acetaminophen 325 Mg Tablet) 650 mg PO Q6H PRN PRN Reason: Pain, Mild (Pain Scale 1-3) Last Admin: 09/15/23 11:48 Dose: 650 mg Documented By: DIMAS Atorvastatin Calcium (Atorvastatin Calcium 20 Mg Tablet) 20 mg PO DAILY [facility] Last Admin: 10/18/23 08:01 Dose: 20 mg Documented By: SYEDA Dextrose (Dextrose 50 % 25 Gm/50 Ml Syringe) 25 gm IVPUSH Q15M PRN; Protocol PRN Reason: per Hypoglycemia Standing Ord. Enoxaparin Sodium (Enoxaparin Sodium 40 Mg/0.4 Ml Syringe) 40 mg SUBCUT Q24H [facility] Last Admin: 10/18/23 09:41 Dose: 40 mg Documented By: SYEDA Escitalopram Oxalate (Escitalopram Oxalate 10 Mg Tablet) 10 mg PO DAILY [facility] Last Admin: 10/18/23 08:01 Dose: 10 mg Documented By: SYEDA Finasteride (Finasteride 5 Mg Tablet) 5 mg PO DAILY [facility] Last Admin: 10/18/23 08:03 Dose: 5 mg Documented By: SYEDA Glucose (Glucose Gel 15 Gm Gel..Gram.) 15 gm PO Q15M PRN; Protocol PRN Reason: per Hypoglycemia Standing Ord. Guaifenesin/Dextromethorphan (Guaifenesin Dm 100/10/5 Ml 5 Ml Syrup) 10 ml PO Q6H PRN PRN Reason: cough Insulin Glargine (Insulin Glargine,Hum.Rec.Anlog 100 Unit/Ml 10 Ml Vial) 25 unit SUBCUT BEDTIME [facility] Last Admin: 10/17/23 21:01 Dose: 25 unit Documented By: WILNER Insulin Human Lispro (Insulin Lispro 100 Unit/Ml 3 Ml Vial) 0 unit SUBCUT QIDACHS [facility]; Protocol Last Admin: 10/18/23 07:56 Dose: Not Given Documented By: SYEDA Non-Admin Reason: No Insulin Coverage Losartan Potassium (Losartan Potassium 25 Mg Tablet) 25 mg PO DAILY [facility]; Protocol Last Admin: 10/18/23 08:01 Dose: 25 mg Documented By: SYEDA Metformin HCl (Metformin Hcl 1,000 Mg Tablet) 1,000 mg PO BIDWM [facility] Last Admin: 10/18/23 08:01 Dose: 1,000 mg Documented By: SYEDA Ondansetron HCl (Ondansetron Hcl 4 Mg/2 Ml Vial) 4 mg IVPUSH Q8H PRN PRN Reason: Nausea and Vomiting Quetiapine Fumarate (Quetiapine Fumarate 50 Mg Tablet) 50 mg PO BEDTIME [facility] Last Admin: 10/17/23 21:01 Dose: 50 mg Documented By: WILNER Labs 10/11/23 08:02 10/18/23 07:45 Labs: Laboratory Results - last 24 hr 10/17/23 10/17/23 10/18/23 16:15 19:55 07:40 Hold Purple Top Estim Creat Clear Calc Estimated GFR POC Glucose 145 H 208 H 113 10/18/23 10/18/23 07:45 11:10 Hold Purple Top SEE NOTE Estim Creat Clear Calc 83.4 Estimated GFR > 60 POC Glucose 190 H Assessment and Plan (1) HLD (hyperlipidemia): Status: Acute (2) HTN (hypertension): Status: Acute Plan 73yo M who originally presented to ED 07/26/23 with suicidal ideation that he subsequently denied. Found to have no competency so guardianship is being pursued febrile 09/09/23 and tested positive for Covid-19 Dementia unspecified on escitalopram, and quetiapine no behavioral issues noted s/p Covid-19 infection s/p isolation finished course of remdesivir oxygenation stable on room air check weekly labs, last 10/10 wnl HTN stable blood pressure on losartan DM2 stable blood sugars at a.m. continue metformin, glargine and insulin sliding scale HLD LDL 58, total cholesterol 115, on Lipitor 40 mg daily dose decreased to lipitor 20 mg and recommend repeat labs in November /december. BPH finasteride VTE ppx -lovenox dispo LTC In my clinical judgment, the patient requires continued inpatient hospitalization for the following reasons: placement Quality Stroke Does the patient have a stroke diagnosis?: No VTE Prior VTE?: No VTE Risk Level:: Medical - moderate - high VTE Device Contraindication: Treatment Not Tolerated VTE Drug Contraindication: N/A - Med Ordered
[2023-10-18] MEDS: Insulin Lispro 100 UNIT/ML 3 ML VIAL SUBCUT ×3 (11:56→20:46)
--- NOTE | 2023-10-18 12:02 | PC.NURSE ---
Pt alert and oriented to self and place. Cooperative with all care. Standby assist oob, ambulated with pt in [place] using cane. Tolerating all meals
[2023-10-18 15:10] VITALS: BP 114/55; PULSE 79; RESP 18; TEMP 36.3; O2SAT 97
[2023-10-18 16:18] LABS: Glucose, Whole Blood 154 mg/dL (60-115)
[2023-10-18 19:48] VITALS: BP 130/66; PULSE 75; RESP 18; TEMP 36.3; O2SAT 97
[2023-10-18 20:14] LABS: Glucose, Whole Blood 152 mg/dL (60-115)
[2023-10-18] MEDS: Insulin Glargine,Hum.rec.anlog 100 UNIT/ML 10 ML VIAL 25 UNIT SUBCUT (20:46)
[2023-10-18] MEDS: QUEtiapine Fumarate 50 MG TABLET PO (20:46)
[2023-10-19 07:07] VITALS: BP 122/60; PULSE 73; RESP 12; TEMP 36.1; O2SAT 98
[2023-10-19 07:29] LABS: Glucose, Whole Blood 122 mg/dL (60-115)
[2023-10-19] MEDS: Finasteride 5 MG TABLET PO (07:45)
[2023-10-19] MEDS: metFORMIN HCl 1,000 MG TABLET 1000 MG PO ×2 (07:45→16:56)
[2023-10-19] MEDS: Atorvastatin Calcium 20 MG TABLET PO (07:45)
[2023-10-19] MEDS: Losartan Potassium 25 MG TABLET PO (07:45)
[2023-10-19] MEDS: Escitalopram Oxalate 10 MG TABLET PO (07:45)
--- NOTE | 2023-10-19 10:37 | HO.PM.IMPN ---
Subjective Subjective Date of Service: 10/19/23 Interval History: Being followed for placement Offers no complaints, tolerating diet no nausea, no vomiting, no abdominal pain, denies shortness of breath, no chest pain, no fevers, no chills. No acute events overnight. Review of Systems All other system reviewed and negative. Physical Exam Vital Signs: Vital Signs: Last Vital Signs Temp 97.0 F 10/19/23 07:07 Pulse 73 10/19/23 07:07 Resp 12 10/19/23 07:07 BP 122/60 10/19/23 07:07 Pulse Ox 98 10/19/23 07:07 O2 Del Method Room Air 10/19/23 07:07 BMI result Body Mass Index 24.0 Const: Other: Gen: Awake alert, in no acute distress, legally blind Neck: supple Lungs: clear to auscultation bilaterally Heart: regular rate and rhythm, no murmurs Abd: soft, non-tender, non-distended, bowel sounds audible Ext: no edema Skin: warm/well-perfused Neuro: Moving all 4 extremities, speech clear. Psych: impaired insight Objective Data Active Medications Acetaminophen (Acetaminophen 325 Mg Tablet) 650 mg PO Q6H PRN PRN Reason: Pain, Mild (Pain Scale 1-3) Last Admin: 09/15/23 11:48 Dose: 650 mg Documented By: DIMAS Atorvastatin Calcium (Atorvastatin Calcium 20 Mg Tablet) 20 mg PO DAILY [facility] Last Admin: 10/19/23 07:45 Dose: 20 mg Documented By: SYEDA Dextrose (Dextrose 50 % 25 Gm/50 Ml Syringe) 25 gm IVPUSH Q15M PRN; Protocol PRN Reason: per Hypoglycemia Standing Ord. Enoxaparin Sodium (Enoxaparin Sodium 40 Mg/0.4 Ml Syringe) 40 mg SUBCUT Q24H [facility] Last Admin: 10/18/23 09:41 Dose: 40 mg Documented By: SYEDA Escitalopram Oxalate (Escitalopram Oxalate 10 Mg Tablet) 10 mg PO DAILY [facility] Last Admin: 10/19/23 07:45 Dose: 10 mg Documented By: SYEDA Finasteride (Finasteride 5 Mg Tablet) 5 mg PO DAILY [facility] Last Admin: 10/19/23 07:45 Dose: 5 mg Documented By: SYEDA Glucose (Glucose Gel 15 Gm Gel..Gram.) 15 gm PO Q15M PRN; Protocol PRN Reason: per Hypoglycemia Standing Ord. Guaifenesin/Dextromethorphan (Guaifenesin Dm 100/10/5 Ml 5 Ml Syrup) 10 ml PO Q6H PRN PRN Reason: cough Insulin Glargine (Insulin Glargine,Hum.Rec.Anlog 100 Unit/Ml 10 Ml Vial) 25 unit SUBCUT BEDTIME [facility] Last Admin: 10/18/23 20:46 Dose: 25 unit Documented By: WILNER Insulin Human Lispro (Insulin Lispro 100 Unit/Ml 3 Ml Vial) 0 unit SUBCUT QIDACHS [facility]; Protocol Last Admin: 10/19/23 07:40 Dose: Not Given Documented By: SYEDA Non-Admin Reason: No Insulin Coverage Losartan Potassium (Losartan Potassium 25 Mg Tablet) 25 mg PO DAILY [facility]; Protocol Last Admin: 10/19/23 07:45 Dose: 25 mg Documented By: SYEDA Metformin HCl (Metformin Hcl 1,000 Mg Tablet) 1,000 mg PO BIDWM [facility] Last Admin: 10/19/23 07:45 Dose: 1,000 mg Documented By: SYEDA Ondansetron HCl (Ondansetron Hcl 4 Mg/2 Ml Vial) 4 mg IVPUSH Q8H PRN PRN Reason: Nausea and Vomiting Quetiapine Fumarate (Quetiapine Fumarate 50 Mg Tablet) 50 mg PO BEDTIME [facility] Last Admin: 10/18/23 20:46 Dose: 50 mg Documented By: WILNER Labs 10/11/23 08:02 10/18/23 07:45 Labs: Laboratory Results - last 24 hr 10/18/23 10/18/23 10/18/23 11:10 16:14 20:02 POC Glucose 190 H 154 H 152 H 10/19/23 07:09 POC Glucose 122 H Assessment and Plan (1) HLD (hyperlipidemia): Status: Acute (2) HTN (hypertension): Status: Acute Plan 73yo M who originally presented to ED 07/26/23 with suicidal ideation that he subsequently denied. Found to have no competency so guardianship is being pursued febrile 09/09/23 and tested positive for Covid-19 Dementia unspecified on escitalopram, and quetiapine no behavioral issues noted s/p Covid-19 infection s/p isolation finished course of remdesivir oxygenation stable on room air last CBC and BMP 10/10 wnl, will check labs periodically HTN stable blood pressure on losartan DM2 stable blood sugars at a.m. continue metformin, glargine and insulin sliding scale HLD LDL 58, total cholesterol 115, on Lipitor 40 mg daily dose decreased to lipitor 20 mg and recommend repeat labs in November /december. BPH finasteride VTE ppx -lovenox dispo LTC In my clinical judgment, the patient requires continued inpatient hospitalization for the following reasons: placement Quality Stroke Does the patient have a stroke diagnosis?: No VTE Prior VTE?: No VTE Risk Level:: Medical - moderate - high VTE Device Contraindication: Treatment Not Tolerated VTE Drug Contraindication: N/A - Med Ordered
[2023-10-19] MEDS: Enoxaparin Sodium 40 MG/0.4 ML SYRINGE SUBCUT (11:03)
[2023-10-19 11:13] LABS: Glucose, Whole Blood 112 mg/dL (60-115)
[2023-10-19 14:42] VITALS: BP 109/58; PULSE 74; RESP 16; TEMP 36.3; O2SAT 97
[2023-10-19 16:09] LABS: Glucose, Whole Blood 193 mg/dL (60-115)
[2023-10-19] MEDS: Insulin Lispro 100 UNIT/ML 3 ML VIAL SUBCUT ×2 (16:57→20:32)
[2023-10-19 19:44] VITALS: BP 105/58; PULSE 76; RESP 18; TEMP 36.4; O2SAT 97
[2023-10-19 20:30] LABS: Glucose, Whole Blood 231 mg/dL (60-115)
[2023-10-19] MEDS: Insulin Glargine,Hum.rec.anlog 100 UNIT/ML 10 ML VIAL 25 UNIT SUBCUT (20:32)
[2023-10-19] MEDS: QUEtiapine Fumarate 50 MG TABLET PO (20:32)
[2023-10-20 03:33] VITALS: BP 115/60; PULSE 74; RESP 16; TEMP 36.1; O2SAT 98
[2023-10-20] MEDS: Losartan Potassium 25 MG TABLET PO (07:20)
[2023-10-20] MEDS: Finasteride 5 MG TABLET PO (07:20)
[2023-10-20] MEDS: Atorvastatin Calcium 20 MG TABLET PO (07:20)
[2023-10-20] MEDS: Enoxaparin Sodium 40 MG/0.4 ML SYRINGE SUBCUT (07:20)
[2023-10-20] MEDS: metFORMIN HCl 1,000 MG TABLET 1000 MG PO ×2 (07:20→17:52)
[2023-10-20] MEDS: Escitalopram Oxalate 10 MG TABLET PO (07:20)
[2023-10-20 07:22] VITALS: BP 132/66; PULSE 69; RESP 16; TEMP 36.5; O2SAT 98
[2023-10-20 07:30] LABS: Glucose, Whole Blood 151 mg/dL (60-115)
[2023-10-20 11:37] LABS: Glucose, Whole Blood 176 mg/dL (60-115)
--- NOTE | 2023-10-20 11:53 | HO.PM.IMPN ---
Subjective Subjective Date of Service: 10/20/23 Interval History: No acute issues overnight. Behavior not an issue Review of Systems Denies chest pain Denies shortness of breath Denies nausea vomiting diarrhea Denies fever chills Physical Exam Vital Signs: Vital Signs: Last Vital Signs Temp 97.7 F 10/20/23 07:22 Pulse 69 10/20/23 07:22 Resp 16 10/20/23 07:22 BP 132/66 10/20/23 07:22 Pulse Ox 98 10/20/23 07:22 O2 Del Method Room Air 10/20/23 07:22 BMI result Body Mass Index 24.0 Const: Other: Awake alert confused no acute distress Resp: Other: Clear to auscultation bilaterally no rales rhonchi or wheezes Cardio: Other: No S4; positive S1-S2; no S3 murmurs rubs or gallops GI: Other: Soft nontender nondistended bowel sounds Extrem: Other: No edema bilaterally Objective Data Active Medications Acetaminophen (Acetaminophen 325 Mg Tablet) 650 mg PO Q6H PRN PRN Reason: Pain, Mild (Pain Scale 1-3) Last Admin: 09/15/23 11:48 Dose: 650 mg Documented By: DIMAS Atorvastatin Calcium (Atorvastatin Calcium 20 Mg Tablet) 20 mg PO DAILY [facility] Last Admin: 10/20/23 07:20 Dose: 20 mg Documented By: LULU Dextrose (Dextrose 50 % 25 Gm/50 Ml Syringe) 25 gm IVPUSH Q15M PRN; Protocol PRN Reason: per Hypoglycemia Standing Ord. Enoxaparin Sodium (Enoxaparin Sodium 40 Mg/0.4 Ml Syringe) 40 mg SUBCUT Q24H [facility] Last Admin: 10/20/23 07:20 Dose: 40 mg Documented By: LULU Escitalopram Oxalate (Escitalopram Oxalate 10 Mg Tablet) 10 mg PO DAILY [facility] Last Admin: 10/20/23 07:20 Dose: 10 mg Documented By: LULU Finasteride (Finasteride 5 Mg Tablet) 5 mg PO DAILY [facility] Last Admin: 10/20/23 07:20 Dose: 5 mg Documented By: LULU Glucose (Glucose Gel 15 Gm Gel..Gram.) 15 gm PO Q15M PRN; Protocol PRN Reason: per Hypoglycemia Standing Ord. Guaifenesin/Dextromethorphan (Guaifenesin Dm 100/10/5 Ml 5 Ml Syrup) 10 ml PO Q6H PRN PRN Reason: cough Insulin Glargine (Insulin Glargine,Hum.Rec.Anlog 100 Unit/Ml 10 Ml Vial) 25 unit SUBCUT BEDTIME [facility] Last Admin: 10/19/23 20:32 Dose: 25 unit Documented By: RADHA Insulin Human Lispro (Insulin Lispro 100 Unit/Ml 3 Ml Vial) 0 unit SUBCUT QIDACHS [facility]; Protocol Last Admin: 10/20/23 07:27 Dose: Not Given Documented By: LULU Non-Admin Reason: No Insulin Coverage Losartan Potassium (Losartan Potassium 25 Mg Tablet) 25 mg PO DAILY [facility]; Protocol Last Admin: 10/20/23 07:20 Dose: 25 mg Documented By: LULU Metformin HCl (Metformin Hcl 1,000 Mg Tablet) 1,000 mg PO BIDWM [facility] Last Admin: 10/20/23 07:20 Dose: 1,000 mg Documented By: LULU Ondansetron HCl (Ondansetron Hcl 4 Mg/2 Ml Vial) 4 mg IVPUSH Q8H PRN PRN Reason: Nausea and Vomiting Quetiapine Fumarate (Quetiapine Fumarate 50 Mg Tablet) 50 mg PO BEDTIME [facility] Last Admin: 10/19/23 20:32 Dose: 50 mg Documented By: RADHA Labs 10/11/23 08:02 10/18/23 07:45 Labs: Laboratory Results - last 24 hr 10/19/23 10/19/23 10/20/23 16:03 20:06 07:26 POC Glucose 193 H 231 H 151 H 10/20/23 11:34 POC Glucose 176 H Assessment and Plan (1) Major neurocognitive disorder due to another medical condition: Status: Acute Plan 73-year-old man presented to the ER on 07/26/2023 initially with suicide ideation but then denied. Patient found to require guardianship, was found to have no competency. Court date for guardianship is pending inpatient will be admitted. 1. Major neurocognitive disorder due to another medical condition -History of dementia -await forthcoming data from guardian 2.Hypertension -acceptable control on current therapy -adjust as indicated 3.Diabetes mellitus type 2 -acceptable control on current therapies -lispro correctional scale -adjust as indicated Heparin Full code Patient admitted for guardianship court date August 15. No capacity per psychiatry Quality Stroke Does the patient have a stroke diagnosis?: No VTE Prior VTE?: No VTE Risk Level:: Medical - moderate - high VTE Device Contraindication: Treatment Not Tolerated VTE Drug Contraindication: N/A - Med Ordered
[2023-10-20] MEDS: Insulin Lispro 100 UNIT/ML 3 ML VIAL SUBCUT ×3 (11:56→21:04)
--- NOTE | 2023-10-20 12:57 | MHC.CM.PN ---
EMR REVIEWED, CM CONTACTED PT'S [facility] OFFICE, FISH [employer]OWER REPORTED THAT [facility] DID RECEIVE A DOCUMENT FROM , ASSET SEARCH NOT COMPLETE HOWEVER [facility] HAS APPT'S AT [facility] AND [facility] TOMORROW AND WILL HAVE AN IDEA OF AVAILABLE FUNDS AT [facility] HOWEVER [facility] WILL NEED TO GO THROUGH THEIR LEGAL DEPT AND WILL NOT HAVE FINANCIAL INFO FROM THEM FOR 2WKS FROM TOMORROWS APPT. PLAN CONT'S TO BE LTC ONCE PAYOR/FUNDS ARE DETERMINED.
[2023-10-20 15:37] VITALS: BP 118/59; PULSE 77; RESP 17; TEMP 36.7; O2SAT 97
[2023-10-20 16:21] LABS: Glucose, Whole Blood 220 mg/dL (60-115)
[2023-10-20 19:59] VITALS: BP 132/60; PULSE 82; RESP 20; TEMP 36.8
[2023-10-20 20:28] LABS: Glucose, Whole Blood 163 mg/dL (60-115)
[2023-10-20] MEDS: QUEtiapine Fumarate 50 MG TABLET PO (21:04)
[2023-10-20] MEDS: Insulin Glargine,Hum.rec.anlog 100 UNIT/ML 10 ML VIAL 25 UNIT SUBCUT (21:05)
[2023-10-21 03:28] VITALS: BP 110/39; PULSE 85; RESP 20; TEMP 36.3; O2SAT 97
[2023-10-21 07:20] VITALS: BP 128/62; PULSE 77; RESP 16; TEMP 36.3; O2SAT 98
[2023-10-21 07:39] LABS: Glucose, Whole Blood 121 mg/dL (60-115)
[2023-10-21] MEDS: Atorvastatin Calcium 20 MG TABLET PO (08:22)
[2023-10-21] MEDS: Finasteride 5 MG TABLET PO (08:22)
[2023-10-21] MEDS: Losartan Potassium 25 MG TABLET PO (08:22)
[2023-10-21] MEDS: Escitalopram Oxalate 10 MG TABLET PO (08:22)
[2023-10-21] MEDS: metFORMIN HCl 1,000 MG TABLET 1000 MG PO ×2 (08:22→17:07)
[2023-10-21] MEDS: Enoxaparin Sodium 40 MG/0.4 ML SYRINGE SUBCUT (10:41)
[2023-10-21 11:40] LABS: Glucose, Whole Blood 158 mg/dL (60-115)
[2023-10-21] MEDS: Insulin Lispro 100 UNIT/ML 3 ML VIAL SUBCUT ×3 (12:03→20:11)
--- NOTE | 2023-10-21 14:29 | HO.PM.IMPN ---
Subjective Subjective Date of Service: 10/21/23 Physical Exam Vital Signs: Vital Signs: Last Vital Signs Temp 97.4 F 10/21/23 07:20 Pulse 77 10/21/23 07:20 Resp 16 10/21/23 07:20 BP 128/62 10/21/23 07:20 Pulse Ox 98 10/21/23 07:20 O2 Del Method Room Air 10/21/23 07:20 O2 Flow Rate 97 10/21/23 03:28 BMI result Body Mass Index 24.0 Objective Data Active Medications Acetaminophen (Acetaminophen 325 Mg Tablet) 650 mg PO Q6H PRN PRN Reason: Pain, Mild (Pain Scale 1-3) Last Admin: 09/15/23 11:48 Dose: 650 mg Documented By: DIMAS Atorvastatin Calcium (Atorvastatin Calcium 20 Mg Tablet) 20 mg PO DAILY [facility] Last Admin: 10/21/23 08:22 Dose: 20 mg Documented By: MERA Dextrose (Dextrose 50 % 25 Gm/50 Ml Syringe) 25 gm IVPUSH Q15M PRN; Protocol PRN Reason: per Hypoglycemia Standing Ord. Enoxaparin Sodium (Enoxaparin Sodium 40 Mg/0.4 Ml Syringe) 40 mg SUBCUT Q24H [facility] Last Admin: 10/21/23 10:41 Dose: 40 mg Documented By: MERA Escitalopram Oxalate (Escitalopram Oxalate 10 Mg Tablet) 10 mg PO DAILY [facility] Last Admin: 10/21/23 08:22 Dose: 10 mg Documented By: MERA Finasteride (Finasteride 5 Mg Tablet) 5 mg PO DAILY [facility] Last Admin: 10/21/23 08:22 Dose: 5 mg Documented By: MERA Glucose (Glucose Gel 15 Gm Gel..Gram.) 15 gm PO Q15M PRN; Protocol PRN Reason: per Hypoglycemia Standing Ord. Guaifenesin/Dextromethorphan (Guaifenesin Dm 100/10/5 Ml 5 Ml Syrup) 10 ml PO Q6H PRN PRN Reason: cough Insulin Glargine (Insulin Glargine,Hum.Rec.Anlog 100 Unit/Ml 10 Ml Vial) 25 unit SUBCUT BEDTIME [facility] Last Admin: 10/20/23 21:05 Dose: 25 unit Documented By: JOHN Insulin Human Lispro (Insulin Lispro 100 Unit/Ml 3 Ml Vial) 0 unit SUBCUT QIDACHS [facility]; Protocol Last Admin: 10/21/23 12:03 Dose: 2 unit Documented By: MERA Losartan Potassium (Losartan Potassium 25 Mg Tablet) 25 mg PO DAILY [facility]; Protocol Last Admin: 10/21/23 08:22 Dose: 25 mg Documented By: MERA Metformin HCl (Metformin Hcl 1,000 Mg Tablet) 1,000 mg PO BIDWM [facility] Last Admin: 10/21/23 08:22 Dose: 1,000 mg Documented By: MERA Ondansetron HCl (Ondansetron Hcl 4 Mg/2 Ml Vial) 4 mg IVPUSH Q8H PRN PRN Reason: Nausea and Vomiting Quetiapine Fumarate (Quetiapine Fumarate 50 Mg Tablet) 50 mg PO BEDTIME [facility] Last Admin: 10/20/23 21:04 Dose: 50 mg Documented By: JOHN Labs 10/11/23 08:02 10/18/23 07:45 Labs: Laboratory Results - last 24 hr 10/20/23 10/20/23 10/21/23 16:17 20:19 07:28 POC Glucose 220 H 163 H 121 H 10/21/23 11:30 POC Glucose 158 H Assessment and Plan (1) Major neurocognitive disorder due to another medical condition: Status: Acute Plan 73-year-old man presented to the ER on 07/26/2023 initially with suicide ideation but then denied. Patient found to require guardianship, was found to have no competency. Court date for guardianship is pending inpatient will be admitted. 1. Major neurocognitive disorder due to another medical condition -History of dementia -await forthcoming data from guardian 2.Hypertension -acceptable control on current therapy -adjust as indicated 3.Diabetes mellitus type 2 -acceptable control on current therapies -lispro correctional scale -adjust as indicated Heparin Full code Patient admitted for guardianship court date August 15. No capacity per psychiatry Quality Stroke Does the patient have a stroke diagnosis?: No VTE Prior VTE?: No VTE Risk Level:: Medical - moderate - high VTE Device Contraindication: Treatment Not Tolerated VTE Drug Contraindication: N/A - Med Ordered
[2023-10-21 14:58] VITALS: BP 109/56; PULSE 84; RESP 20; TEMP 36.4; O2SAT 97
[2023-10-21 16:19] LABS: Glucose, Whole Blood 183 mg/dL (60-115)
[2023-10-21 19:39] VITALS: BP 128/60; PULSE 80; RESP 20; TEMP 36.8; O2SAT 99
[2023-10-21] MEDS: QUEtiapine Fumarate 50 MG TABLET PO (20:11)
[2023-10-21] MEDS: Insulin Glargine,Hum.rec.anlog 100 UNIT/ML 10 ML VIAL 25 UNIT SUBCUT (20:12)
[2023-10-21 20:15] LABS: Glucose, Whole Blood 173 mg/dL (60-115)
[2023-10-22 03:50] VITALS: BP 114/62; PULSE 66; RESP 16; TEMP 36.2; O2SAT 97
[2023-10-22 07:35] LABS: Glucose, Whole Blood 121 mg/dL (60-115)
[2023-10-22 07:39] VITALS: BP 113/59; PULSE 65; RESP 16; TEMP 36.2; O2SAT 96
[2023-10-22] MEDS: Enoxaparin Sodium 40 MG/0.4 ML SYRINGE SUBCUT (08:27)
[2023-10-22] MEDS: metFORMIN HCl 1,000 MG TABLET 1000 MG PO ×2 (08:28→16:31)
[2023-10-22] MEDS: Finasteride 5 MG TABLET PO (08:28)
[2023-10-22] MEDS: Losartan Potassium 25 MG TABLET PO (08:28)
[2023-10-22] MEDS: Atorvastatin Calcium 20 MG TABLET PO (08:28)
[2023-10-22] MEDS: Escitalopram Oxalate 10 MG TABLET PO (08:28)
--- NOTE | 2023-10-22 10:59 | P.PNIM_ITS ---
Subjective Subjective Date of Service: 10/22/23 Interval History: denies any pain, dyspnea, or GI complaints Review of Systems Review of Systems: Yes all other systems are reviewed and are negative Physical Exam 2 Vital Signs: Vital Signs: Last Vital Signs Temp 97.2 F 10/22/23 07:39 Pulse 65 10/22/23 07:39 Resp 16 10/22/23 07:39 BP 113/59 L 10/22/23 07:39 Pulse Ox 96 10/22/23 07:39 O2 Del Method Room Air 10/22/23 07:39 O2 Flow Rate 97 10/21/23 03:28 BMI result Body Mass Index 24.0 Gen: in no acute distress HEENT: sclera anicteric, moist mucus membranes Neck: supple Lungs: clear to auscultation bilaterally Heart: regular rate and rhythm, no murmurs Abd: soft, non-tender, non-distended Ext: no edema Skin: warm/well-perfused Neuro: alert, disoriented, moving all extremities Psych: impaired insight Objective Data Active Medications Acetaminophen (Acetaminophen 325 Mg Tablet) 650 mg PO Q6H PRN PRN Reason: Pain, Mild (Pain Scale 1-3) Last Admin: 09/15/23 11:48 Dose: 650 mg Documented By: DIMAS Atorvastatin Calcium (Atorvastatin Calcium 20 Mg Tablet) 20 mg PO DAILY [facility] Last Admin: 10/22/23 08:28 Dose: 20 mg Documented By: TEE Dextrose (Dextrose 50 % 25 Gm/50 Ml Syringe) 25 gm IVPUSH Q15M PRN; Protocol PRN Reason: per Hypoglycemia Standing Ord. Enoxaparin Sodium (Enoxaparin Sodium 40 Mg/0.4 Ml Syringe) 40 mg SUBCUT Q24H [facility] Last Admin: 10/22/23 08:27 Dose: 40 mg Documented By: TEE Escitalopram Oxalate (Escitalopram Oxalate 10 Mg Tablet) 10 mg PO DAILY [facility] Last Admin: 10/22/23 08:28 Dose: 10 mg Documented By: TEE Finasteride (Finasteride 5 Mg Tablet) 5 mg PO DAILY [facility] Last Admin: 10/22/23 08:28 Dose: 5 mg Documented By: TEE Glucose (Glucose Gel 15 Gm Gel..Gram.) 15 gm PO Q15M PRN; Protocol PRN Reason: per Hypoglycemia Standing Ord. Guaifenesin/Dextromethorphan (Guaifenesin Dm 100/10/5 Ml 5 Ml Syrup) 10 ml PO Q6H PRN PRN Reason: cough Insulin Glargine (Insulin Glargine,Hum.Rec.Anlog 100 Unit/Ml 10 Ml Vial) 25 unit SUBCUT BEDTIME [facility] Last Admin: 10/21/23 20:12 Dose: 25 unit Documented By: RADHA Insulin Human Lispro (Insulin Lispro 100 Unit/Ml 3 Ml Vial) 0 unit SUBCUT QIDACHS [facility]; Protocol Last Admin: 10/22/23 07:58 Dose: Not Given Documented By: TEE Non-Admin Reason: No Insulin Coverage Losartan Potassium (Losartan Potassium 25 Mg Tablet) 25 mg PO DAILY [facility]; Protocol Last Admin: 10/22/23 08:28 Dose: 25 mg Documented By: TEE Metformin HCl (Metformin Hcl 1,000 Mg Tablet) 1,000 mg PO BIDWM [facility] Last Admin: 10/22/23 08:28 Dose: 1,000 mg Documented By: TEE Ondansetron HCl (Ondansetron Hcl 4 Mg/2 Ml Vial) 4 mg IVPUSH Q8H PRN PRN Reason: Nausea and Vomiting Quetiapine Fumarate (Quetiapine Fumarate 50 Mg Tablet) 50 mg PO BEDTIME [facility] Last Admin: 10/21/23 20:11 Dose: 50 mg Documented By: RADHA Labs 10/11/23 08:02 10/18/23 07:45 Labs: Laboratory Results - last 24 hr 10/21/23 10/21/23 10/21/23 11:30 16:04 19:58 POC Glucose 158 H 183 H 173 H 10/22/23 07:29 POC Glucose 121 H Assessment and Plan (1) Major neurocognitive disorder due to another medical condition: Status: Acute Plan [id number] 73yo M with dementia who originally presented to ED 07/26/23 with suicidal ideation that he subsequently denied. Found to have no competency so pursuing guardianship then LTC placement symptomatic Covid-19 09/09-09/19/23 [fever only, no hypoxia] dementia - escitalopram, quetiapine HTN - losartan DM2 - MTF, glargine HLD - statin prostatism - finasteride VTE ppx - LMWH dispo - LTC In my clinical judgment, the patient requires continued inpatient hospitalization for the following reasons: placement Total time managing care of this patient today: 25 minutes. Quality Stroke Does the patient have a stroke diagnosis?: No VTE Prior VTE?: No VTE Risk Level:: Medical - moderate - high VTE Device Contraindication: Treatment Not Tolerated VTE Drug Contraindication: N/A - Med Ordered
[2023-10-22 11:25] LABS: Glucose, Whole Blood 179 mg/dL (60-115)
[2023-10-22] MEDS: Insulin Lispro 100 UNIT/ML 3 ML VIAL SUBCUT ×2 (11:50→21:26)
--- NOTE | 2023-10-22 14:51 | MHC.CM.PN ---
call placed to cody dalal pts guardian asked for an update re avaliable funds thru jennifer arechiga for possible private pay fu ds for snf placement
[2023-10-22 15:11] VITALS: BP 109/59; PULSE 76; RESP 16; TEMP 36.6; O2SAT 96
[2023-10-22 16:13] LABS: Glucose, Whole Blood 124 mg/dL (60-115)
[2023-10-22 19:09] VITALS: BP 115/56; PULSE 79; RESP 18; TEMP 36.6; O2SAT 97
[2023-10-22 19:50] LABS: Glucose, Whole Blood 189 mg/dL (60-115)
[2023-10-22] MEDS: Insulin Glargine,Hum.rec.anlog 100 UNIT/ML 10 ML VIAL 25 UNIT SUBCUT (21:25)
[2023-10-22] MEDS: QUEtiapine Fumarate 50 MG TABLET PO (21:25)
[2023-10-23 04:00] VITALS: BP 103/59; PULSE 76; RESP 16; TEMP 36; O2SAT 95
[2023-10-23 07:30] LABS: Glucose, Whole Blood 131 mg/dL (60-115)
[2023-10-23 07:41] VITALS: BP 119/66; PULSE 73; RESP 16; TEMP 36.8; O2SAT 96
[2023-10-23] MEDS: Losartan Potassium 25 MG TABLET PO (08:59)
[2023-10-23] MEDS: Escitalopram Oxalate 10 MG TABLET PO (08:59)
[2023-10-23] MEDS: metFORMIN HCl 1,000 MG TABLET 1000 MG PO ×2 (08:59→16:47)
[2023-10-23] MEDS: Finasteride 5 MG TABLET PO (08:59)
[2023-10-23] MEDS: Atorvastatin Calcium 20 MG TABLET PO (08:59)
[2023-10-23] MEDS: Enoxaparin Sodium 40 MG/0.4 ML SYRINGE SUBCUT (09:00)
--- NOTE | 2023-10-23 09:57 | HO.PM.IMPN ---
Subjective Subjective Date of Service: 10/23/23 Interval History: no new events no complaints Review of Systems Review of Systems: Yes all other systems are reviewed and are negative Physical Exam Vital Signs: Vital Signs: Last Vital Signs Temp 98.2 F 10/23/23 07:41 Pulse 73 10/23/23 07:41 Resp 16 10/23/23 07:41 BP 119/66 10/23/23 07:41 Pulse Ox 96 10/23/23 07:41 O2 Del Method Room Air 10/23/23 07:41 O2 Flow Rate 97 10/21/23 03:28 BMI result Body Mass Index 24.0 Gen: in no acute distress Lungs: normal effort Neuro: alert, disoriented, moving all extremities Psych: impaired insight Objective Data Active Medications Acetaminophen (Acetaminophen 325 Mg Tablet) 650 mg PO Q6H PRN PRN Reason: Pain, Mild (Pain Scale 1-3) Last Admin: 09/15/23 11:48 Dose: 650 mg Documented By: DIMAS Atorvastatin Calcium (Atorvastatin Calcium 20 Mg Tablet) 20 mg PO DAILY [facility] Last Admin: 10/23/23 08:59 Dose: 20 mg Documented By: TEE Dextrose (Dextrose 50 % 25 Gm/50 Ml Syringe) 25 gm IVPUSH Q15M PRN; Protocol PRN Reason: per Hypoglycemia Standing Ord. Enoxaparin Sodium (Enoxaparin Sodium 40 Mg/0.4 Ml Syringe) 40 mg SUBCUT Q24H [facility] Last Admin: 10/23/23 09:00 Dose: 40 mg Documented By: TEE Escitalopram Oxalate (Escitalopram Oxalate 10 Mg Tablet) 10 mg PO DAILY [facility] Last Admin: 10/23/23 08:59 Dose: 10 mg Documented By: TEE Finasteride (Finasteride 5 Mg Tablet) 5 mg PO DAILY [facility] Last Admin: 10/23/23 08:59 Dose: 5 mg Documented By: TEE Glucose (Glucose Gel 15 Gm Gel..Gram.) 15 gm PO Q15M PRN; Protocol PRN Reason: per Hypoglycemia Standing Ord. Guaifenesin/Dextromethorphan (Guaifenesin Dm 100/10/5 Ml 5 Ml Syrup) 10 ml PO Q6H PRN PRN Reason: cough Insulin Glargine (Insulin Glargine,Hum.Rec.Anlog 100 Unit/Ml 10 Ml Vial) 25 unit SUBCUT BEDTIME [facility] Last Admin: 10/22/23 21:25 Dose: 25 unit Documented By: JENNIFER Comments: Insulin Human Lispro (Insulin Lispro 100 Unit/Ml 3 Ml Vial) 0 unit SUBCUT QIDACHS [facility]; Protocol Last Admin: 10/23/23 07:42 Dose: Not Given Documented By: TEE Non-Admin Reason: No Insulin Coverage Losartan Potassium (Losartan Potassium 25 Mg Tablet) 25 mg PO DAILY [facility]; Protocol Last Admin: 10/23/23 08:59 Dose: 25 mg Documented By: TEE Metformin HCl (Metformin Hcl 1,000 Mg Tablet) 1,000 mg PO BIDWM [facility] Last Admin: 10/23/23 08:59 Dose: 1,000 mg Documented By: TEE Ondansetron HCl (Ondansetron Hcl 4 Mg/2 Ml Vial) 4 mg IVPUSH Q8H PRN PRN Reason: Nausea and Vomiting Quetiapine Fumarate (Quetiapine Fumarate 50 Mg Tablet) 50 mg PO BEDTIME [facility] Last Admin: 10/22/23 21:25 Dose: 50 mg Documented By: JENNIFER Labs 10/11/23 08:02 10/18/23 07:45 Labs: Laboratory Results - last 24 hr 10/22/23 10/22/23 10/22/23 11:10 16:09 19:44 POC Glucose 179 H 124 H 189 H 10/23/23 07:23 POC Glucose 131 H Assessment and Plan (1) Major neurocognitive disorder due to another medical condition: Status: Acute Plan [id number] 73yo M with dementia who originally presented to ED 07/26/23 with suicidal ideation that he subsequently denied. Found to have no competency so pursuing guardianship then LTC placement symptomatic Covid-19 09/09-09/19/23 [fever only, no hypoxia] dementia - escitalopram, quetiapine HTN - losartan DM2 - MTF, glargine HLD - statin prostatism - finasteride VTE ppx - LMWH dispo - LTC In my clinical judgment, the patient requires continued inpatient hospitalization for the following reasons: placement Total time managing care of this patient today: 25 minutes. Quality Stroke Does the patient have a stroke diagnosis?: No VTE Prior VTE?: No VTE Risk Level:: Medical - moderate - high VTE Device Contraindication: Treatment Not Tolerated VTE Drug Contraindication: N/A - Med Ordered
[2023-10-23 11:29] LABS: Glucose, Whole Blood 219 mg/dL (60-115)
[2023-10-23] MEDS: Insulin Lispro 100 UNIT/ML 3 ML VIAL SUBCUT ×3 (11:53→21:20)
[2023-10-23 15:08] VITALS: BP 105/55; PULSE 83; RESP 17; TEMP 36.1; O2SAT 97
[2023-10-23 16:07] LABS: Glucose, Whole Blood 152 mg/dL (60-115)
[2023-10-23 19:31] VITALS: BP 118/58; PULSE 85; RESP 17; TEMP 36.2; O2SAT 95
[2023-10-23 20:44] LABS: Glucose, Whole Blood 175 mg/dL (60-115)
[2023-10-23] MEDS: QUEtiapine Fumarate 50 MG TABLET PO (21:20)
[2023-10-23] MEDS: Insulin Glargine,Hum.rec.anlog 100 UNIT/ML 10 ML VIAL 25 UNIT SUBCUT (21:20)
[2023-10-24 03:03] VITALS: BP 107/55; PULSE 66; RESP 18; TEMP 36.4; O2SAT 97
[2023-10-24 07:01] VITALS: BP 112/56; PULSE 71; RESP 16; TEMP 36.3; O2SAT 97
[2023-10-24] MEDS: Finasteride 5 MG TABLET PO (07:06)
[2023-10-24] MEDS: Losartan Potassium 25 MG TABLET PO (07:07)
[2023-10-24] MEDS: metFORMIN HCl 1,000 MG TABLET 1000 MG PO ×2 (07:07→16:44)
[2023-10-24] MEDS: Atorvastatin Calcium 20 MG TABLET PO (07:07)
[2023-10-24] MEDS: Escitalopram Oxalate 10 MG TABLET PO (07:07)
[2023-10-24] MEDS: Enoxaparin Sodium 40 MG/0.4 ML SYRINGE SUBCUT (07:09)
[2023-10-24 07:14] LABS: Glucose, Whole Blood 136 mg/dL (60-115)
[2023-10-24 11:11] LABS: Glucose, Whole Blood 240 mg/dL (60-115)
[2023-10-24] MEDS: Insulin Lispro 100 UNIT/ML 3 ML VIAL SUBCUT ×3 (11:52→22:21)
--- NOTE | 2023-10-24 12:08 | HO.PM.IMPN ---
Subjective Subjective Date of Service: 10/24/23 Interval History: no new complaints Review of Systems Review of Systems: Yes all other systems are reviewed and are negative Physical Exam Vital Signs: Vital Signs: Last Vital Signs Temp 97.3 F 10/24/23 07:01 Pulse 71 10/24/23 07:01 Resp 16 10/24/23 07:01 BP 112/56 L 10/24/23 07:01 Pulse Ox 97 10/24/23 07:01 O2 Del Method Room Air 10/24/23 07:01 O2 Flow Rate 97 10/21/23 03:28 BMI result Body Mass Index 24.0 Gen: in no acute distress Lungs: normal effort Neuro: alert, disoriented, moving all extremities Psych: impaired insight Objective Data Active Medications Acetaminophen (Acetaminophen 325 Mg Tablet) 650 mg PO Q6H PRN PRN Reason: Pain, Mild (Pain Scale 1-3) Last Admin: 09/15/23 11:48 Dose: 650 mg Documented By: DIMAS Atorvastatin Calcium (Atorvastatin Calcium 20 Mg Tablet) 20 mg PO DAILY [facility] Last Admin: 10/24/23 07:07 Dose: 20 mg Documented By: LULU Dextrose (Dextrose 50 % 25 Gm/50 Ml Syringe) 25 gm IVPUSH Q15M PRN; Protocol PRN Reason: per Hypoglycemia Standing Ord. Enoxaparin Sodium (Enoxaparin Sodium 40 Mg/0.4 Ml Syringe) 40 mg SUBCUT Q24H [facility] Last Admin: 10/24/23 07:09 Dose: 40 mg Documented By: LULU Escitalopram Oxalate (Escitalopram Oxalate 10 Mg Tablet) 10 mg PO DAILY [facility] Last Admin: 10/24/23 07:07 Dose: 10 mg Documented By: LULU Finasteride (Finasteride 5 Mg Tablet) 5 mg PO DAILY [facility] Last Admin: 10/24/23 07:06 Dose: 5 mg Documented By: LULU Glucose (Glucose Gel 15 Gm Gel..Gram.) 15 gm PO Q15M PRN; Protocol PRN Reason: per Hypoglycemia Standing Ord. Guaifenesin/Dextromethorphan (Guaifenesin Dm 100/10/5 Ml 5 Ml Syrup) 10 ml PO Q6H PRN PRN Reason: cough Insulin Glargine (Insulin Glargine,Hum.Rec.Anlog 100 Unit/Ml 10 Ml Vial) 25 unit SUBCUT BEDTIME [facility] Last Admin: 10/23/23 21:20 Dose: 25 unit Documented By: MALGORZATA Insulin Human Lispro (Insulin Lispro 100 Unit/Ml 3 Ml Vial) 0 unit SUBCUT QIDACHS [facility]; Protocol Last Admin: 10/24/23 11:52 Dose: 4 unit Documented By: TEE Losartan Potassium (Losartan Potassium 25 Mg Tablet) 25 mg PO DAILY [facility]; Protocol Last Admin: 10/24/23 07:07 Dose: 25 mg Documented By: LULU Metformin HCl (Metformin Hcl 1,000 Mg Tablet) 1,000 mg PO BIDWM [facility] Last Admin: 10/24/23 07:07 Dose: 1,000 mg Documented By: LULU Ondansetron HCl (Ondansetron Hcl 4 Mg/2 Ml Vial) 4 mg IVPUSH Q8H PRN PRN Reason: Nausea and Vomiting Quetiapine Fumarate (Quetiapine Fumarate 50 Mg Tablet) 50 mg PO BEDTIME [facility] Last Admin: 10/23/23 21:20 Dose: 50 mg Documented By: MALGORZATA Labs 10/11/23 08:02 10/18/23 07:45 Labs: Laboratory Results - last 24 hr 10/23/23 10/23/23 10/24/23 16:03 20:33 07:06 POC Glucose 152 H 175 H 136 H 10/24/23 11:07 POC Glucose 240 H Assessment and Plan (1) Major neurocognitive disorder due to another medical condition: Status: Acute Plan [id number] 73yo M with dementia who originally presented to ED 07/26/23 with suicidal ideation that he subsequently denied. Found to have no competency so pursuing guardianship then LTC placement symptomatic Covid-19 09/09-09/19/23 [fever only, no hypoxia] dementia - escitalopram, quetiapine HTN - losartan DM2 - MTF, glargine HLD - statin prostatism - finasteride VTE ppx - LMWH dispo - LTC In my clinical judgment, the patient requires continued inpatient hospitalization for the following reasons: placement Total time managing care of this patient today: 25 minutes. Quality Stroke Does the patient have a stroke diagnosis?: No VTE Prior VTE?: No VTE Risk Level:: Medical - moderate - high VTE Device Contraindication: Treatment Not Tolerated VTE Drug Contraindication: N/A - Med Ordered
--- NOTE | 2023-10-24 13:07 | MHC.CM.PN ---
EMR REVIEWED. PT REMAINS MEDICALLY CLEARED FOR DC TO LTC HOWEVER STILL AWAITING FINANCIAL PROFILE FROM [employer] GARIBAY. CM WILL CONTINUE TO FOLLOW FOR ANY CHANGE IN DC PLAN/NEEDS.
[2023-10-24 15:24] VITALS: BP 125/60; PULSE 73; RESP 18; TEMP 36.3; O2SAT 98
[2023-10-24 16:23] LABS: Glucose, Whole Blood 225 mg/dL (60-115)
[2023-10-24 19:49] VITALS: BP 127/61; PULSE 78; RESP 18; TEMP 36.4; O2SAT 97
[2023-10-24 20:50] LABS: Glucose, Whole Blood 216 mg/dL (60-115)
[2023-10-24] MEDS: QUEtiapine Fumarate 50 MG TABLET PO (22:20)
[2023-10-24] MEDS: Insulin Glargine,Hum.rec.anlog 100 UNIT/ML 10 ML VIAL 25 UNIT SUBCUT (22:21)
[2023-10-25 03:45] VITALS: BP 126/62; PULSE 74; RESP 16; TEMP 36.1; O2SAT 95
[2023-10-25 06:20] LABS: Creatinine Clr Calc Pharmacy 84.4; Estimated Glomerular Filt Rate > 60
[2023-10-25 07:15] VITALS: BP 115/61; PULSE 98; RESP 18; TEMP 36; O2SAT 96
[2023-10-25] MEDS: Insulin Lispro 100 UNIT/ML 3 ML VIAL SUBCUT ×4 (07:41→21:31)
[2023-10-25] MEDS: metFORMIN HCl 1,000 MG TABLET 1000 MG PO ×2 (07:42→16:40)
[2023-10-25] MEDS: Losartan Potassium 25 MG TABLET PO (07:42)
[2023-10-25] MEDS: Escitalopram Oxalate 10 MG TABLET PO (07:42)
[2023-10-25] MEDS: Atorvastatin Calcium 20 MG TABLET PO (07:42)
[2023-10-25] MEDS: Finasteride 5 MG TABLET PO (07:42)
[2023-10-25 07:48] LABS: Glucose, Whole Blood 161 mg/dL (60-115)
--- NOTE | 2023-10-25 09:57 | P.PNIM_ITS ---
Subjective Subjective Date of Service: 10/25/23 Interval History: no complaints, no new events Review of Systems Review of Systems: Yes all other systems are reviewed and are negative Physical Exam 2 Vital Signs: Vital Signs: Last Vital Signs Temp 96.8 F 10/25/23 07:15 Pulse 98 10/25/23 07:15 Resp 18 10/25/23 07:15 BP 115/61 10/25/23 07:15 Pulse Ox 96 10/25/23 07:15 O2 Del Method Room Air 10/25/23 07:15 O2 Flow Rate 97 10/21/23 03:28 BMI result Body Mass Index 24.0 Gen: in no acute distress Lungs: normal effort Neuro: alert, disoriented, moving all extremities Psych: impaired insight Objective Data Active Medications Acetaminophen (Acetaminophen 325 Mg Tablet) 650 mg PO Q6H PRN PRN Reason: Pain, Mild (Pain Scale 1-3) Last Admin: 09/15/23 11:48 Dose: 650 mg Documented By: DIMAS Atorvastatin Calcium (Atorvastatin Calcium 20 Mg Tablet) 20 mg PO DAILY [facility] Last Admin: 10/25/23 07:42 Dose: 20 mg Documented By: RODNEY Dextrose (Dextrose 50 % 25 Gm/50 Ml Syringe) 25 gm IVPUSH Q15M PRN; Protocol PRN Reason: per Hypoglycemia Standing Ord. Enoxaparin Sodium (Enoxaparin Sodium 40 Mg/0.4 Ml Syringe) 40 mg SUBCUT Q24H [facility] Last Admin: 10/24/23 07:09 Dose: 40 mg Documented By: LULU Escitalopram Oxalate (Escitalopram Oxalate 10 Mg Tablet) 10 mg PO DAILY [facility] Last Admin: 10/25/23 07:42 Dose: 10 mg Documented By: RODNEY Finasteride (Finasteride 5 Mg Tablet) 5 mg PO DAILY [facility] Last Admin: 10/25/23 07:42 Dose: 5 mg Documented By: RODNEY Glucose (Glucose Gel 15 Gm Gel..Gram.) 15 gm PO Q15M PRN; Protocol PRN Reason: per Hypoglycemia Standing Ord. Guaifenesin/Dextromethorphan (Guaifenesin Dm 100/10/5 Ml 5 Ml Syrup) 10 ml PO Q6H PRN PRN Reason: cough Insulin Glargine (Insulin Glargine,Hum.Rec.Anlog 100 Unit/Ml 10 Ml Vial) 25 unit SUBCUT BEDTIME [facility] Last Admin: 10/24/23 22:21 Dose: 25 unit Documented By: JASON Insulin Human Lispro (Insulin Lispro 100 Unit/Ml 3 Ml Vial) 0 unit SUBCUT QIDACHS [facility]; Protocol Last Admin: 10/25/23 07:41 Dose: 2 unit Documented By: RODNEY Losartan Potassium (Losartan Potassium 25 Mg Tablet) 25 mg PO DAILY [facility]; Protocol Last Admin: 10/25/23 07:42 Dose: 25 mg Documented By: RODNEY Metformin HCl (Metformin Hcl 1,000 Mg Tablet) 1,000 mg PO BIDWM [facility] Last Admin: 10/25/23 07:42 Dose: 1,000 mg Documented By: RODNEY Ondansetron HCl (Ondansetron Hcl 4 Mg/2 Ml Vial) 4 mg IVPUSH Q8H PRN PRN Reason: Nausea and Vomiting Quetiapine Fumarate (Quetiapine Fumarate 50 Mg Tablet) 50 mg PO BEDTIME [facility] Last Admin: 10/24/23 22:20 Dose: 50 mg Documented By: JASON Labs 10/11/23 08:02 10/25/23 05:33 Labs: Laboratory Results - last 24 hr 10/24/23 10/24/23 10/24/23 11:07 16:12 20:12 Hold Purple Top Estim Creat Clear Calc Estimated GFR POC Glucose 240 H 225 H 216 H 10/25/23 10/25/23 05:33 07:17 Hold Purple Top SEE NOTE Estim Creat Clear Calc 84.4 Estimated GFR > 60 POC Glucose 161 H Assessment and Plan (1) Major neurocognitive disorder due to another medical condition: Status: Acute Plan d75 73yo M with dementia who originally presented to ED 07/26/23 with suicidal ideation that he subsequently denied. Found to have no competency so pursuing guardianship then LTC placement symptomatic Covid-19 09/09-09/19/23 [fever only, no hypoxia] dementia - escitalopram, quetiapine HTN - losartan DM2 - MTF, glargine HLD - statin prostatism - finasteride VTE ppx - LMWH dispo - LTC In my clinical judgment, the patient requires continued inpatient hospitalization for the following reasons: placement Total time managing care of this patient today: 25 minutes. Quality Stroke Does the patient have a stroke diagnosis?: No VTE Prior VTE?: No VTE Risk Level:: Medical - moderate - high VTE Device Contraindication: Treatment Not Tolerated VTE Drug Contraindication: N/A - Med Ordered
[2023-10-25] MEDS: Enoxaparin Sodium 40 MG/0.4 ML SYRINGE SUBCUT (10:06)
[2023-10-25 11:49] LABS: Glucose, Whole Blood 215 mg/dL (60-115)
[2023-10-25 15:08] VITALS: BP 106/58; PULSE 72; RESP 18; TEMP 36.2; O2SAT 97
[2023-10-25 15:57] LABS: Glucose, Whole Blood 152 mg/dL (60-115)
[2023-10-25 20:00] VITALS: BP 125/58; PULSE 77; RESP 20; TEMP 36.8; O2SAT 98
[2023-10-25 21:08] LABS: Glucose, Whole Blood 188 mg/dL (60-115)
[2023-10-25] MEDS: QUEtiapine Fumarate 50 MG TABLET PO (21:30)
[2023-10-25] MEDS: Insulin Glargine,Hum.rec.anlog 100 UNIT/ML 10 ML VIAL 25 UNIT SUBCUT (21:31)
[2023-10-26 03:36] VITALS: BP 119/59; PULSE 69; RESP 16; TEMP 36.3; O2SAT 96
[2023-10-26 07:22] VITALS: BP 115/60; PULSE 72; RESP 18; TEMP 36.2; O2SAT 97
[2023-10-26] MEDS: Insulin Lispro 100 UNIT/ML 3 ML VIAL SUBCUT ×2 (07:27→11:27)
[2023-10-26 07:42] LABS: Glucose, Whole Blood 165 mg/dL (60-115)
[2023-10-26] MEDS: Losartan Potassium 25 MG TABLET PO (07:53)
[2023-10-26] MEDS: metFORMIN HCl 1,000 MG TABLET 1000 MG PO ×2 (07:53→16:32)
[2023-10-26] MEDS: Escitalopram Oxalate 10 MG TABLET PO (07:53)
[2023-10-26] MEDS: Atorvastatin Calcium 20 MG TABLET PO (07:54)
[2023-10-26] MEDS: Finasteride 5 MG TABLET PO (07:54)
--- NOTE | 2023-10-26 08:50 | P.PNIM_ITS ---
Subjective Subjective Date of Service: 10/26/23 Interval History: no new complaints Review of Systems Review of Systems: Yes all other systems are reviewed and are negative Physical Exam 2 Vital Signs: Vital Signs: Last Vital Signs Temp 97.2 F 10/26/23 07:22 Pulse 72 10/26/23 07:22 Resp 18 10/26/23 07:22 BP 115/60 10/26/23 07:22 Pulse Ox 97 10/26/23 07:22 O2 Del Method Room Air 10/26/23 07:22 O2 Flow Rate 97 10/21/23 03:28 BMI result Body Mass Index 24.0 Gen: in no acute distress Lungs: normal effort Neuro: alert, disoriented, moving all extremities Psych: impaired insight Objective Data Active Medications Acetaminophen (Acetaminophen 325 Mg Tablet) 650 mg PO Q6H PRN PRN Reason: Pain, Mild (Pain Scale 1-3) Last Admin: 09/15/23 11:48 Dose: 650 mg Documented By: DIMAS Atorvastatin Calcium (Atorvastatin Calcium 20 Mg Tablet) 20 mg PO DAILY [facility] Last Admin: 10/26/23 07:54 Dose: 20 mg Documented By: RODNEY Dextrose (Dextrose 50 % 25 Gm/50 Ml Syringe) 25 gm IVPUSH Q15M PRN; Protocol PRN Reason: per Hypoglycemia Standing Ord. Enoxaparin Sodium (Enoxaparin Sodium 40 Mg/0.4 Ml Syringe) 40 mg SUBCUT Q24H [facility] Last Admin: 10/25/23 10:06 Dose: 40 mg Documented By: RODNEY Escitalopram Oxalate (Escitalopram Oxalate 10 Mg Tablet) 10 mg PO DAILY [facility] Last Admin: 10/26/23 07:53 Dose: 10 mg Documented By: RODNEY Finasteride (Finasteride 5 Mg Tablet) 5 mg PO DAILY [facility] Last Admin: 10/26/23 07:54 Dose: 5 mg Documented By: RODNEY Glucose (Glucose Gel 15 Gm Gel..Gram.) 15 gm PO Q15M PRN; Protocol PRN Reason: per Hypoglycemia Standing Ord. Guaifenesin/Dextromethorphan (Guaifenesin Dm 100/10/5 Ml 5 Ml Syrup) 10 ml PO Q6H PRN PRN Reason: cough Insulin Glargine (Insulin Glargine,Hum.Rec.Anlog 100 Unit/Ml 10 Ml Vial) 25 unit SUBCUT BEDTIME [facility] Last Admin: 10/25/23 21:31 Dose: 25 unit Documented By: ILENE Insulin Human Lispro (Insulin Lispro 100 Unit/Ml 3 Ml Vial) 0 unit SUBCUT QIDACHS [facility]; Protocol Last Admin: 10/26/23 07:27 Dose: 2 unit Documented By: RODNEY Losartan Potassium (Losartan Potassium 25 Mg Tablet) 25 mg PO DAILY [facility]; Protocol Last Admin: 10/26/23 07:53 Dose: 25 mg Documented By: RODNEY Metformin HCl (Metformin Hcl 1,000 Mg Tablet) 1,000 mg PO BIDWM [facility] Last Admin: 10/26/23 07:53 Dose: 1,000 mg Documented By: RODNEY Ondansetron HCl (Ondansetron Hcl 4 Mg/2 Ml Vial) 4 mg IVPUSH Q8H PRN PRN Reason: Nausea and Vomiting Quetiapine Fumarate (Quetiapine Fumarate 50 Mg Tablet) 50 mg PO BEDTIME [facility] Last Admin: 10/25/23 21:30 Dose: 50 mg Documented By: ILENE Labs 10/11/23 08:02 10/25/23 05:33 Labs: Laboratory Results - last 24 hr 10/25/23 10/25/23 10/25/23 11:41 15:53 21:04 POC Glucose 215 H 152 H 188 H 10/26/23 07:24 POC Glucose 165 H Assessment and Plan (1) Major neurocognitive disorder due to another medical condition: Status: Acute Plan [id number] 73yo M with dementia who originally presented to ED 07/26/23 with suicidal ideation that he subsequently denied. Found to have no competency so pursuing guardianship then LTC placement symptomatic Covid-19 09/09-09/19/23 [fever only, no hypoxia] dementia - escitalopram, quetiapine HTN - losartan DM2 - MTF, glargine HLD - statin prostatism - finasteride VTE ppx - LMWH dispo - LTC In my clinical judgment, the patient requires continued inpatient hospitalization for the following reasons: placement Total time managing care of this patient today: 25 minutes. Quality Stroke Does the patient have a stroke diagnosis?: No VTE Prior VTE?: No VTE Risk Level:: Medical - moderate - high VTE Device Contraindication: Treatment Not Tolerated VTE Drug Contraindication: N/A - Med Ordered
[2023-10-26] MEDS: Enoxaparin Sodium 40 MG/0.4 ML SYRINGE SUBCUT (09:36)
[2023-10-26 11:18] LABS: Glucose, Whole Blood 185 mg/dL (60-115)
[2023-10-26 15:28] VITALS: BP 118/56; PULSE 70; RESP 18; TEMP 36.2; O2SAT 98
[2023-10-26 16:28] LABS: Glucose, Whole Blood 118 mg/dL (60-115)
[2023-10-26 20:00] VITALS: BP 121/58; PULSE 73; RESP 18; TEMP 36.1; O2SAT 98
[2023-10-26 20:22] LABS: Glucose, Whole Blood 148 mg/dL (60-115)
[2023-10-26] MEDS: Insulin Glargine,Hum.rec.anlog 100 UNIT/ML 10 ML VIAL 25 UNIT SUBCUT (20:27)
[2023-10-26] MEDS: QUEtiapine Fumarate 50 MG TABLET PO (20:27)
[2023-10-27 03:08] VITALS: BP 102/58; PULSE 63; RESP 63; TEMP 36.1; O2SAT 96
[2023-10-27 07:39] VITALS: BP 121/61; PULSE 65; RESP 16; TEMP 36.3; O2SAT 96
[2023-10-27 07:51] LABS: Glucose, Whole Blood 144 mg/dL (60-115)
[2023-10-27] MEDS: Finasteride 5 MG TABLET PO (08:15)
[2023-10-27] MEDS: metFORMIN HCl 1,000 MG TABLET 1000 MG PO ×2 (08:15→16:29)
[2023-10-27] MEDS: Escitalopram Oxalate 10 MG TABLET PO (08:15)
[2023-10-27] MEDS: Atorvastatin Calcium 20 MG TABLET PO (08:15)
[2023-10-27] MEDS: Losartan Potassium 25 MG TABLET PO (08:15)
[2023-10-27] MEDS: Enoxaparin Sodium 40 MG/0.4 ML SYRINGE SUBCUT (09:01)
[2023-10-27 11:16] LABS: Glucose, Whole Blood 144 mg/dL (60-115)
--- NOTE | 2023-10-27 12:27 | HO.PM.IMPN ---
Subjective Subjective Date of Service: 10/27/23 Interval History: No acute issues overnight. Cooperative behavior Review of Systems Denies chest pain Denies shortness of breath Denies nausea vomiting diarrhea Denies fever chills Physical Exam Vital Signs: Vital Signs: Last Vital Signs Temp 97.3 F 10/27/23 07:39 Pulse 65 10/27/23 07:39 Resp 16 10/27/23 07:39 BP 121/61 10/27/23 07:39 Pulse Ox 96 10/27/23 07:39 O2 Del Method Room Air 10/27/23 07:39 O2 Flow Rate 97 10/21/23 03:28 BMI result Body Mass Index 24.0 Const: Other: Awake alert confused no acute distress Resp: Other: Clear to auscultation bilaterally no rales rhonchi or wheezes Cardio: Other: No S4; positive S1-S2; no S3 murmurs rubs or gallops GI: Other: Soft nontender nondistended bowel sounds Extrem: Other: No edema bilaterally Objective Data Active Medications Acetaminophen (Acetaminophen 325 Mg Tablet) 650 mg PO Q6H PRN PRN Reason: Pain, Mild (Pain Scale 1-3) Last Admin: 09/15/23 11:48 Dose: 650 mg Documented By: DIMAS Atorvastatin Calcium (Atorvastatin Calcium 20 Mg Tablet) 20 mg PO DAILY [facility] Last Admin: 10/27/23 08:15 Dose: 20 mg Documented By: LUKE Dextrose (Dextrose 50 % 25 Gm/50 Ml Syringe) 25 gm IVPUSH Q15M PRN; Protocol PRN Reason: per Hypoglycemia Standing Ord. Enoxaparin Sodium (Enoxaparin Sodium 40 Mg/0.4 Ml Syringe) 40 mg SUBCUT Q24H [facility] Last Admin: 10/27/23 09:01 Dose: 40 mg Documented By: LUKE Glucose (Glucose Gel 15 Gm Gel..Gram.) 15 gm PO Q15M PRN; Protocol PRN Reason: per Hypoglycemia Standing Ord. Guaifenesin/Dextromethorphan (Guaifenesin Dm 100/10/5 Ml 5 Ml Syrup) 10 ml PO Q6H PRN PRN Reason: cough Insulin Glargine (Insulin Glargine,Hum.Rec.Anlog 100 Unit/Ml 10 Ml Vial) 25 unit SUBCUT BEDTIME [facility] Last Admin: 10/26/23 20:27 Dose: 25 unit Documented By: LULU Insulin Human Lispro (Insulin Lispro 100 Unit/Ml 3 Ml Vial) 0 unit SUBCUT QIDACHS [facility]; Protocol Last Admin: 10/27/23 11:56 Dose: Not Given Documented By: LUKE Non-Admin Reason: No Insulin Coverage Metformin HCl (Metformin Hcl 1,000 Mg Tablet) 1,000 mg PO BIDWM [facility] Last Admin: 10/27/23 08:15 Dose: 1,000 mg Documented By: LUKE Ondansetron HCl (Ondansetron Hcl 4 Mg/2 Ml Vial) 4 mg IVPUSH Q8H PRN PRN Reason: Nausea and Vomiting Quetiapine Fumarate (Quetiapine Fumarate 50 Mg Tablet) 50 mg PO BEDTIME [facility] Last Admin: 10/26/23 20:27 Dose: 50 mg Documented By: LULU Labs 10/11/23 08:02 10/25/23 05:33 Labs: Laboratory Results - last 24 hr 10/26/23 10/26/23 10/27/23 16:25 19:35 07:32 POC Glucose 118 H 148 H 144 H 10/27/23 11:12 POC Glucose 144 H Assessment and Plan (1) Major neurocognitive disorder due to another medical condition: Status: Acute Plan 73-year-old man presented to the ER on 07/26/2023 initially with suicide ideation but then denied. Patient found to require guardianship, was found to have no competency. Court date for guardianship is pending inpatient will be admitted. 1. Major neurocognitive disorder due to another medical condition -History of dementia -await forthcoming data from guardian 2.Hypertension -acceptable control on current therapy -adjust as indicated 3.Diabetes mellitus type 2 -acceptable control on current therapies -lispro correctional scale -adjust as indicated Heparin Full code Patient admitted for guardianship court date August 15. No capacity per psychiatry Quality Stroke Does the patient have a stroke diagnosis?: No VTE Prior VTE?: No VTE Risk Level:: Medical - moderate - high VTE Device Contraindication: Treatment Not Tolerated VTE Drug Contraindication: N/A - Med Ordered
--- NOTE | 2023-10-27 13:43 | MHC.CM.PN ---
EMR REVIEWED. PT REMAINS MEDICALLY CLEARED. CM SPOKE WITH GUARDILAUREN GARIBAY WHO STATES THE PT HAS NO FUNDS IN [employer] ACCOUNT AND WILL BE RE-VISITING [employer] 10/27 TO INQUIRE ABOUT FUNDS THERE. PER GUARDIAN, WILL KEEP US UPDATED.
[2023-10-27 15:28] VITALS: BP 126/65; PULSE 70; RESP 16; TEMP 36; O2SAT 96
[2023-10-27 16:21] LABS: Glucose, Whole Blood 137 mg/dL (60-115)
[2023-10-27 19:05] VITALS: BP 134/66; PULSE 73; RESP 18; TEMP 36.4; O2SAT 97
[2023-10-27 19:53] LABS: Glucose, Whole Blood 135 mg/dL (60-115)
[2023-10-27] MEDS: QUEtiapine Fumarate 50 MG TABLET PO (20:49)
[2023-10-27] MEDS: Insulin Glargine,Hum.rec.anlog 100 UNIT/ML 10 ML VIAL 25 UNIT SUBCUT (20:49)
[2023-10-28 03:54] VITALS: BP 113/53; PULSE 66; RESP 16; TEMP 36.1; O2SAT 95
--- NOTE | 2023-10-28 05:07 | PC.NURSE ---
right arm skin tear, dressing changed.
[2023-10-28 07:54] VITALS: BP 113/65; PULSE 67; RESP 18; TEMP 36.2; O2SAT 95
[2023-10-28 08:10] LABS: Glucose, Whole Blood 133 mg/dL (60-115)
[2023-10-28] MEDS: Enoxaparin Sodium 40 MG/0.4 ML SYRINGE SUBCUT (10:19)
[2023-10-28] MEDS: Atorvastatin Calcium 20 MG TABLET PO (10:20)
[2023-10-28] MEDS: metFORMIN HCl 1,000 MG TABLET 1000 MG PO ×2 (10:20→16:37)
[2023-10-28 11:02] LABS: Glucose, Whole Blood 220 mg/dL (60-115)
[2023-10-28] MEDS: Insulin Lispro 100 UNIT/ML 3 ML VIAL SUBCUT ×2 (11:48→21:03)
--- NOTE | 2023-10-28 14:26 | HO.PM.IMPN ---
Subjective Subjective Date of Service: 10/28/23 Interval History: No acute issues overnight. No behavioral issues Review of Systems Denies chest pain Denies shortness of breath Denies nausea vomiting diarrhea Denies fever chills Physical Exam Vital Signs: Vital Signs: Last Vital Signs Temp 97.2 F 10/28/23 07:54 Pulse 67 10/28/23 07:54 Resp 18 10/28/23 07:54 BP 113/65 10/28/23 07:54 Pulse Ox 95 10/28/23 07:54 O2 Del Method Room Air 10/28/23 07:54 O2 Flow Rate 97 10/21/23 03:28 BMI result Body Mass Index 24.0 Const: Other: Awake alert confused no acute distress Resp: Other: Clear to auscultation bilaterally no rales rhonchi or wheezes Cardio: Other: No S4; positive S1-S2; no S3 murmurs rubs or gallops GI: Other: Soft nontender nondistended bowel sounds Extrem: Other: No edema bilaterally Objective Data Active Medications Acetaminophen (Acetaminophen 325 Mg Tablet) 650 mg PO Q6H PRN PRN Reason: Pain, Mild (Pain Scale 1-3) Last Admin: 09/15/23 11:48 Dose: 650 mg Documented By: DIMAS Atorvastatin Calcium (Atorvastatin Calcium 20 Mg Tablet) 20 mg PO DAILY [facility] Last Admin: 10/28/23 10:20 Dose: 20 mg Documented By: TEE Dextrose (Dextrose 50 % 25 Gm/50 Ml Syringe) 25 gm IVPUSH Q15M PRN; Protocol PRN Reason: per Hypoglycemia Standing Ord. Enoxaparin Sodium (Enoxaparin Sodium 40 Mg/0.4 Ml Syringe) 40 mg SUBCUT Q24H [facility] Last Admin: 10/28/23 10:19 Dose: 40 mg Documented By: TEE Glucose (Glucose Gel 15 Gm Gel..Gram.) 15 gm PO Q15M PRN; Protocol PRN Reason: per Hypoglycemia Standing Ord. Guaifenesin/Dextromethorphan (Guaifenesin Dm 100/10/5 Ml 5 Ml Syrup) 10 ml PO Q6H PRN PRN Reason: cough Insulin Glargine (Insulin Glargine,Hum.Rec.Anlog 100 Unit/Ml 10 Ml Vial) 25 unit SUBCUT BEDTIME [facility] Last Admin: 10/27/23 20:49 Dose: 25 unit Documented By: ENEDINA Insulin Human Lispro (Insulin Lispro 100 Unit/Ml 3 Ml Vial) 0 unit SUBCUT QIDACHS [facility]; Protocol Last Admin: 10/28/23 11:48 Dose: 4 unit Documented By: TEE Metformin HCl (Metformin Hcl 1,000 Mg Tablet) 1,000 mg PO BIDWM [facility] Last Admin: 10/28/23 10:20 Dose: 1,000 mg Documented By: TEE Ondansetron HCl (Ondansetron Hcl 4 Mg/2 Ml Vial) 4 mg IVPUSH Q8H PRN PRN Reason: Nausea and Vomiting Quetiapine Fumarate (Quetiapine Fumarate 50 Mg Tablet) 50 mg PO BEDTIME [facility] Last Admin: 10/27/23 20:49 Dose: 50 mg Documented By: ENEDINA Labs 10/11/23 08:02 10/25/23 05:33 Labs: Laboratory Results - last 24 hr 10/27/23 10/27/23 10/28/23 16:17 19:44 07:57 POC Glucose 137 H 135 H 133 H 10/28/23 10:58 POC Glucose 220 H Assessment and Plan (1) Major neurocognitive disorder due to another medical condition: Status: Acute Plan 73-year-old man presented to the ER on 07/26/2023 initially with suicide ideation but then denied. Patient found to require guardianship, was found to have no competency. Court date for guardianship is pending inpatient will be admitted. 1. Major neurocognitive disorder due to another medical condition -History of dementia -await forthcoming data from guardian 2.Hypertension -acceptable control on current therapy -adjust as indicated 3.Diabetes mellitus type 2 -acceptable control on current therapies -lispro correctional scale -adjust as indicated Heparin Full code Patient admitted for guardianship court date August 15. No capacity per psychiatry Quality Stroke Does the patient have a stroke diagnosis?: No VTE Prior VTE?: No VTE Risk Level:: Medical - moderate - high VTE Device Contraindication: Treatment Not Tolerated VTE Drug Contraindication: N/A - Med Ordered
[2023-10-28 15:13] VITALS: BP 109/57; PULSE 70; RESP 16; TEMP 36.3; O2SAT 96
[2023-10-28 16:21] LABS: Glucose, Whole Blood 119 mg/dL (60-115)
[2023-10-28 19:55] VITALS: BP 112/57; PULSE 77; RESP 18; TEMP 36.6; O2SAT 96
[2023-10-28 20:09] LABS: Glucose, Whole Blood 154 mg/dL (60-115)
[2023-10-28] MEDS: QUEtiapine Fumarate 50 MG TABLET PO (21:03)
[2023-10-28] MEDS: Insulin Glargine,Hum.rec.anlog 100 UNIT/ML 10 ML VIAL 25 UNIT SUBCUT (21:04)
[2023-10-29 03:31] VITALS: BP 102/60; PULSE 69; RESP 16; TEMP 36; O2SAT 96
[2023-10-29 07:02] VITALS: BP 114/55; PULSE 67; RESP 16; TEMP 36.2; O2SAT 97
[2023-10-29 07:13] LABS: Glucose, Whole Blood 150 mg/dL (60-115)
[2023-10-29] MEDS: Enoxaparin Sodium 40 MG/0.4 ML SYRINGE SUBCUT (09:25)
[2023-10-29] MEDS: Atorvastatin Calcium 20 MG TABLET PO (09:25)
[2023-10-29] MEDS: metFORMIN HCl 1,000 MG TABLET 1000 MG PO ×2 (09:25→18:03)
[2023-10-29 11:08] LABS: Glucose, Whole Blood 225 mg/dL (60-115)
[2023-10-29] MEDS: Insulin Lispro 100 UNIT/ML 3 ML VIAL SUBCUT ×2 (11:53→20:30)
--- NOTE | 2023-10-29 12:26 | HO.PM.IMPN ---
Subjective Subjective Date of Service: 10/29/23 Interval History: No acute issues. Remains pleasantly confused Review of Systems Denies chest pain Denies shortness of breath Denies nausea vomiting diarrhea Denies fever chills Physical Exam Vital Signs: Vital Signs: Last Vital Signs Temp 97.1 F 10/29/23 07:02 Pulse 67 10/29/23 07:02 Resp 16 10/29/23 07:02 BP 114/55 L 10/29/23 07:02 Pulse Ox 97 10/29/23 07:02 O2 Del Method Room Air 10/29/23 07:02 O2 Flow Rate 97 10/21/23 03:28 BMI result Body Mass Index 24.0 Const: Other: Awake alert confused no acute distress Resp: Other: Clear to auscultation bilaterally no rales rhonchi or wheezes Cardio: Other: No S4; positive S1-S2; no S3 murmurs rubs or gallops GI: Other: Soft nontender nondistended bowel sounds Extrem: Other: No edema bilaterally Objective Data Active Medications Acetaminophen (Acetaminophen 325 Mg Tablet) 650 mg PO Q6H PRN PRN Reason: Pain, Mild (Pain Scale 1-3) Last Admin: 09/15/23 11:48 Dose: 650 mg Documented By: DIMAS Atorvastatin Calcium (Atorvastatin Calcium 20 Mg Tablet) 20 mg PO DAILY [facility] Last Admin: 10/29/23 09:25 Dose: 20 mg Documented By: EARL Dextrose (Dextrose 50 % 25 Gm/50 Ml Syringe) 25 gm IVPUSH Q15M PRN; Protocol PRN Reason: per Hypoglycemia Standing Ord. Enoxaparin Sodium (Enoxaparin Sodium 40 Mg/0.4 Ml Syringe) 40 mg SUBCUT Q24H [facility] Last Admin: 10/29/23 09:25 Dose: 40 mg Documented By: EARL Glucose (Glucose Gel 15 Gm Gel..Gram.) 15 gm PO Q15M PRN; Protocol PRN Reason: per Hypoglycemia Standing Ord. Guaifenesin/Dextromethorphan (Guaifenesin Dm 100/10/5 Ml 5 Ml Syrup) 10 ml PO Q6H PRN PRN Reason: cough Insulin Glargine (Insulin Glargine,Hum.Rec.Anlog 100 Unit/Ml 10 Ml Vial) 25 unit SUBCUT BEDTIME [facility] Last Admin: 10/28/23 21:04 Dose: 25 unit Documented By: MALGORZATA Insulin Human Lispro (Insulin Lispro 100 Unit/Ml 3 Ml Vial) 0 unit SUBCUT QIDACHS [facility]; Protocol Last Admin: 10/29/23 11:53 Dose: 4 unit Documented By: TEE Metformin HCl (Metformin Hcl 1,000 Mg Tablet) 1,000 mg PO BIDWM [facility] Last Admin: 10/29/23 09:25 Dose: 1,000 mg Documented By: EARL Ondansetron HCl (Ondansetron Hcl 4 Mg/2 Ml Vial) 4 mg IVPUSH Q8H PRN PRN Reason: Nausea and Vomiting Quetiapine Fumarate (Quetiapine Fumarate 50 Mg Tablet) 50 mg PO BEDTIME [facility] Last Admin: 10/28/23 21:03 Dose: 50 mg Documented By: MALGORZATA Labs 10/11/23 08:02 10/25/23 05:33 Labs: Laboratory Results - last 24 hr 10/28/23 10/28/23 10/29/23 16:18 20:05 07:01 POC Glucose 119 H 154 H 150 H 10/29/23 11:00 POC Glucose 225 H Assessment and Plan (1) Major neurocognitive disorder due to another medical condition: Status: Acute Plan 73-year-old man presented to the ER on 07/26/2023 initially with suicide ideation but then denied. Patient found to require guardianship, was found to have no competency. Court date for guardianship is pending inpatient will be admitted. 1. Major neurocognitive disorder due to another medical condition -History of dementia -await forthcoming data from guardian 2.Hypertension -acceptable control on current therapy -adjust as indicated 3.Diabetes mellitus type 2 -acceptable control on current therapies -lispro correctional scale -adjust as indicated Heparin Full code Patient admitted for guardianship court date August 15. No capacity per psychiatry Quality Stroke Does the patient have a stroke diagnosis?: No VTE Prior VTE?: No VTE Risk Level:: Medical - moderate - high VTE Device Contraindication: Treatment Not Tolerated VTE Drug Contraindication: N/A - Med Ordered
--- NOTE | 2023-10-29 12:29 | MHC.CM.PN ---
EMR REVIEWED. PT REMAINS MEDICALLY CLEARED. CM PLACED F/U CALL TO GUARDIAN [employer] GARIBAY REGARDING FINANCIAL INVESTIGATION. PER HER DELIVERER OUTSIDE, SHE IS STILL AWAITING WORD ON FUNDS AT [facility]. CM WILL CONTINUE TO FOLLOW FOR ANY CHANGE IN DC PLAN/NEEDS.
[2023-10-29 15:03] VITALS: BP 129/60; PULSE 78; RESP 17; TEMP 36.3; O2SAT 97
[2023-10-29 16:06] LABS: Glucose, Whole Blood 113 mg/dL (60-115)
[2023-10-29 19:14] VITALS: BP 121/60; PULSE 84; RESP 17; TEMP 36.3; O2SAT 96
[2023-10-29 20:14] LABS: Glucose, Whole Blood 219 mg/dL (60-115)
[2023-10-29] MEDS: Insulin Glargine,Hum.rec.anlog 100 UNIT/ML 10 ML VIAL 25 UNIT SUBCUT (20:30)
[2023-10-29] MEDS: QUEtiapine Fumarate 50 MG TABLET PO (20:31)
[2023-10-30 02:15] VITALS: BP 134/63; PULSE 83; RESP 16; TEMP 36.2; O2SAT 97
[2023-10-30 07:22] VITALS: BP 108/60; PULSE 76; RESP 18; TEMP 36.6; O2SAT 97
[2023-10-30 07:24] LABS: Glucose, Whole Blood 195 mg/dL (60-115)
[2023-10-30] MEDS: Atorvastatin Calcium 20 MG TABLET PO (07:42)
[2023-10-30] MEDS: Insulin Lispro 100 UNIT/ML 3 ML VIAL SUBCUT ×3 (07:42→20:54)
[2023-10-30] MEDS: metFORMIN HCl 1,000 MG TABLET 1000 MG PO ×2 (07:42→16:26)
[2023-10-30] MEDS: Enoxaparin Sodium 40 MG/0.4 ML SYRINGE SUBCUT (09:00)
[2023-10-30 11:42] LABS: Glucose, Whole Blood 164 mg/dL (60-115)
--- NOTE | 2023-10-30 15:01 | HO.PM.IMPN ---
Subjective Subjective Date of Service: 10/30/23 Interval History: No acute issues overnight. No acute behavioral issues Review of Systems Denies chest pain Denies shortness of breath Denies nausea vomiting diarrhea Denies fever chills Physical Exam Vital Signs: Vital Signs: Last Vital Signs Temp 97.8 F 10/30/23 07:22 Pulse 76 10/30/23 07:22 Resp 18 10/30/23 07:22 BP 108/60 10/30/23 07:22 Pulse Ox 97 10/30/23 07:22 O2 Del Method Room Air 10/30/23 07:22 O2 Flow Rate 97 10/21/23 03:28 BMI result Body Mass Index 24.0 Const: Other: Awake alert confused no acute distress Resp: Other: Clear to auscultation bilaterally no rales rhonchi or wheezes Cardio: Other: No S4; positive S1-S2; no S3 murmurs rubs or gallops GI: Other: Soft nontender nondistended bowel sounds Extrem: Other: No edema bilaterally Objective Data Active Medications Acetaminophen (Acetaminophen 325 Mg Tablet) 650 mg PO Q6H PRN PRN Reason: Pain, Mild (Pain Scale 1-3) Last Admin: 09/15/23 11:48 Dose: 650 mg Documented By: DIMAS Atorvastatin Calcium (Atorvastatin Calcium 20 Mg Tablet) 20 mg PO DAILY [facility] Last Admin: 10/30/23 07:42 Dose: 20 mg Documented By: RODNEY Dextrose (Dextrose 50 % 25 Gm/50 Ml Syringe) 25 gm IVPUSH Q15M PRN; Protocol PRN Reason: per Hypoglycemia Standing Ord. Enoxaparin Sodium (Enoxaparin Sodium 40 Mg/0.4 Ml Syringe) 40 mg SUBCUT Q24H [facility] Last Admin: 10/30/23 09:00 Dose: 40 mg Documented By: RODNEY Glucose (Glucose Gel 15 Gm Gel..Gram.) 15 gm PO Q15M PRN; Protocol PRN Reason: per Hypoglycemia Standing Ord. Guaifenesin/Dextromethorphan (Guaifenesin Dm 100/10/5 Ml 5 Ml Syrup) 10 ml PO Q6H PRN PRN Reason: cough Insulin Glargine (Insulin Glargine,Hum.Rec.Anlog 100 Unit/Ml 10 Ml Vial) 25 unit SUBCUT BEDTIME [facility] Last Admin: 10/29/23 20:30 Dose: 25 unit Documented By: MALGORZATA Insulin Human Lispro (Insulin Lispro 100 Unit/Ml 3 Ml Vial) 0 unit SUBCUT QIDACHS [facility]; Protocol Last Admin: 10/30/23 11:58 Dose: 2 unit Documented By: RODNEY Metformin HCl (Metformin Hcl 1,000 Mg Tablet) 1,000 mg PO BIDWM [facility] Last Admin: 10/30/23 07:42 Dose: 1,000 mg Documented By: RODNEY Ondansetron HCl (Ondansetron Hcl 4 Mg/2 Ml Vial) 4 mg IVPUSH Q8H PRN PRN Reason: Nausea and Vomiting Quetiapine Fumarate (Quetiapine Fumarate 50 Mg Tablet) 50 mg PO BEDTIME [facility] Last Admin: 10/29/23 20:31 Dose: 50 mg Documented By: MALGORZATA Labs 10/11/23 08:02 10/25/23 05:33 Labs: Laboratory Results - last 24 hr 10/29/23 10/29/23 10/30/23 15:57 20:05 07:21 POC Glucose 113 219 H 195 H 10/30/23 11:17 POC Glucose 164 H Assessment and Plan (1) Major neurocognitive disorder due to another medical condition: Status: Acute Plan 73-year-old man presented to the ER on 07/26/2023 initially with suicide ideation but then denied. Patient found to require guardianship, was found to have no competency. Court date for guardianship is pending inpatient will be admitted. 1. Major neurocognitive disorder due to another medical condition -History of dementia -await forthcoming data from guardian 2.Hypertension -acceptable control on current therapy -adjust as indicated 3.Diabetes mellitus type 2 -acceptable control on current therapies -lispro correctional scale -adjust as indicated Heparin Full code Patient admitted for guardianship court date August 15. No capacity per psychiatry Quality Stroke Does the patient have a stroke diagnosis?: No VTE Prior VTE?: No VTE Risk Level:: Medical - moderate - high VTE Device Contraindication: Treatment Not Tolerated VTE Drug Contraindication: N/A - Med Ordered
[2023-10-30 15:09] VITALS: BP 126/64; PULSE 80; RESP 20; TEMP 36.6; O2SAT 97
[2023-10-30 16:08] LABS: Glucose, Whole Blood 150 mg/dL (60-115)
[2023-10-30 20:00] VITALS: BP 129/63; PULSE 83; RESP 18; TEMP 36.6; O2SAT 97
[2023-10-30 20:09] LABS: Glucose, Whole Blood 201 mg/dL (60-115)
[2023-10-30] MEDS: QUEtiapine Fumarate 50 MG TABLET PO (20:54)
[2023-10-30] MEDS: Insulin Glargine,Hum.rec.anlog 100 UNIT/ML 10 ML VIAL 25 UNIT SUBCUT (20:55)
[2023-10-31 04:00] VITALS: BP 126/63; PULSE 86; RESP 20; TEMP 36.3; O2SAT 96
[2023-10-31 07:13] VITALS: BP 116/61; PULSE 78; RESP 18; TEMP 36.6; O2SAT 96
[2023-10-31 07:24] LABS: Glucose, Whole Blood 169 mg/dL (60-115)
[2023-10-31] MEDS: Insulin Lispro 100 UNIT/ML 3 ML VIAL SUBCUT ×4 (08:42→21:31)
[2023-10-31] MEDS: metFORMIN HCl 1,000 MG TABLET 1000 MG PO ×2 (08:42→16:45)
[2023-10-31] MEDS: Atorvastatin Calcium 20 MG TABLET PO (08:42)
--- NOTE | 2023-10-31 09:01 | MHC.CM.PN ---
EMR REVIEWED, GUARDIAN/CONSERVATOR PRECIOUS [facility] STILL AWAITING VERFICATION OF FUNDS AT [facility], PER PREVIOUS CM PT HAS NO FUNDS AT [facility], CM WILL CONT TO FOLLOW FOR DC NEEDS AND LTC PLACEMENT.
[2023-10-31] MEDS: Enoxaparin Sodium 40 MG/0.4 ML SYRINGE SUBCUT (09:04)
[2023-10-31] MEDS: Finasteride 5 MG TABLET PO (10:24)
[2023-10-31] MEDS: Escitalopram Oxalate 10 MG TABLET PO (10:24)
[2023-10-31 11:28] LABS: Glucose, Whole Blood 230 mg/dL (60-115)
--- NOTE | 2023-10-31 12:50 | HO.PM.IMPN ---
Subjective Subjective Date of Service: 10/31/23 Interval History: No acute issues overnight. No acute behavioral issues Review of Systems Denies chest pain Denies shortness of breath Denies nausea vomiting diarrhea Denies fever chills Physical Exam Vital Signs: Vital Signs: Last Vital Signs Temp 97.8 F 10/31/23 07:13 Pulse 78 10/31/23 07:13 Resp 18 10/31/23 07:13 BP 116/61 10/31/23 07:13 Pulse Ox 96 10/31/23 07:13 O2 Del Method Room Air 10/31/23 07:13 O2 Flow Rate 97 10/21/23 03:28 BMI result Body Mass Index 24.0 Const: Other: Awake alert confused no acute distress Resp: Other: Clear to auscultation bilaterally no rales rhonchi or wheezes Cardio: Other: No S4; positive S1-S2; no S3 murmurs rubs or gallops GI: Other: Soft nontender nondistended bowel sounds Extrem: Other: No edema bilaterally Objective Data Active Medications Acetaminophen (Acetaminophen 325 Mg Tablet) 650 mg PO Q6H PRN PRN Reason: Pain, Mild (Pain Scale 1-3) Last Admin: 09/15/23 11:48 Dose: 650 mg Documented By: DIMAS Atorvastatin Calcium (Atorvastatin Calcium 20 Mg Tablet) 20 mg PO DAILY [facility] Last Admin: 10/31/23 08:42 Dose: 20 mg Documented By: BRANDON Enoxaparin Sodium (Enoxaparin Sodium 40 Mg/0.4 Ml Syringe) 40 mg SUBCUT Q24H [facility] Last Admin: 10/31/23 09:04 Dose: 40 mg Documented By: BRANDON Escitalopram Oxalate (Escitalopram Oxalate 10 Mg Tablet) 10 mg PO DAILY [facility] Last Admin: 10/31/23 10:24 Dose: 10 mg Documented By: BRANDON Finasteride (Finasteride 5 Mg Tablet) 5 mg PO DAILY [facility] Last Admin: 10/31/23 10:24 Dose: 5 mg Documented By: BRANDON Glucose (Glucose Gel 15 Gm Gel..Gram.) 15 gm PO Q15M PRN; Protocol PRN Reason: per Hypoglycemia Standing Ord. Guaifenesin/Dextromethorphan (Guaifenesin Dm 100/10/5 Ml 5 Ml Syrup) 10 ml PO Q6H PRN PRN Reason: cough Dextrose (D10) 250 mls @ 750 mls/hr IV Q15M PRN PRN Reason: per Hypoglycemia Standing Ord. Insulin Glargine (Insulin Glargine,Hum.Rec.Anlog 100 Unit/Ml 10 Ml Vial) 25 unit SUBCUT BEDTIME [facility] Last Admin: 10/30/23 20:55 Dose: 25 unit Documented By: RADHA Insulin Human Lispro (Insulin Lispro 100 Unit/Ml 3 Ml Vial) 0 unit SUBCUT QIDACHS [facility]; Protocol Last Admin: 10/31/23 11:42 Dose: 4 unit Documented By: BRANDON Metformin HCl (Metformin Hcl 1,000 Mg Tablet) 1,000 mg PO BIDWM [facility] Last Admin: 10/31/23 08:42 Dose: 1,000 mg Documented By: BRANDON Ondansetron HCl (Ondansetron Hcl 4 Mg/2 Ml Vial) 4 mg IVPUSH Q8H PRN PRN Reason: Nausea and Vomiting Quetiapine Fumarate (Quetiapine Fumarate 50 Mg Tablet) 50 mg PO BEDTIME [facility] Last Admin: 10/30/23 20:54 Dose: 50 mg Documented By: RADHA Labs 10/11/23 08:02 10/25/23 05:33 Labs: Laboratory Results - last 24 hr 10/30/23 10/30/23 10/31/23 16:03 19:58 07:15 POC Glucose 150 H 201 H 169 H 10/31/23 11:15 POC Glucose 230 H Assessment and Plan (1) Major neurocognitive disorder due to another medical condition: Status: Acute Plan 73-year-old man presented to the ER on 07/26/2023 initially with suicide ideation but then denied. Patient found to require guardianship, was found to have no competency. Court date for guardianship is pending inpatient will be admitted. 1. Major neurocognitive disorder due to another medical condition -History of dementia -await forthcoming data from guardian 2.Hypertension -acceptable control on current therapy -adjust as indicated 3.Diabetes mellitus type 2 -acceptable control on current therapies -lispro correctional scale -adjust as indicated Heparin Full code Patient admitted for guardianship court date August 15. No capacity per psychiatry Quality Stroke Does the patient have a stroke diagnosis?: No VTE Prior VTE?: No VTE Risk Level:: Medical - moderate - high VTE Device Contraindication: Treatment Not Tolerated VTE Drug Contraindication: N/A - Med Ordered
[2023-10-31 15:33] VITALS: BP 127/59; PULSE 78; RESP 18; TEMP 36.6; O2SAT 98
[2023-10-31 16:17] LABS: Glucose, Whole Blood 187 mg/dL (60-115)
[2023-10-31 19:34] VITALS: BP 126/60; PULSE 80; RESP 20; TEMP 36.2; O2SAT 96
[2023-10-31 19:56] LABS: Glucose, Whole Blood 212 mg/dL (60-115)
[2023-10-31] MEDS: QUEtiapine Fumarate 50 MG TABLET PO (21:31)
[2023-10-31] MEDS: Insulin Glargine,Hum.rec.anlog 100 UNIT/ML 10 ML VIAL 25 UNIT SUBCUT (21:31)
[2023-11-01 03:34] VITALS: BP 112/67; PULSE 81; RESP 16; TEMP 36.1; O2SAT 98
[2023-11-01 07:06] VITALS: BP 126/61; PULSE 78; RESP 16; TEMP 36.6; O2SAT 97
[2023-11-01 07:11] LABS: Creatinine Clr Calc Pharmacy 86.5; Estimated Glomerular Filt Rate > 60
[2023-11-01 07:53] LABS: Glucose, Whole Blood 184 mg/dL (60-115)
[2023-11-01] MEDS: Insulin Lispro 100 UNIT/ML 3 ML VIAL SUBCUT ×4 (07:55→20:37)
[2023-11-01] MEDS: Atorvastatin Calcium 20 MG TABLET PO (08:11)
[2023-11-01] MEDS: Escitalopram Oxalate 10 MG TABLET PO (08:11)
[2023-11-01] MEDS: Finasteride 5 MG TABLET PO (08:11)
[2023-11-01] MEDS: metFORMIN HCl 1,000 MG TABLET 1000 MG PO ×2 (08:11→16:55)
[2023-11-01] MEDS: Enoxaparin Sodium 40 MG/0.4 ML SYRINGE SUBCUT (09:26)
--- NOTE | 2023-11-01 11:20 | P.PNIM_ITS ---
Subjective Subjective Date of Service: 11/01/23 Interval History: no complaints Review of Systems Review of Systems: Yes all other systems are reviewed and are negative Physical Exam 2 Vital Signs: Vital Signs: Last Vital Signs Temp 97.8 F 11/01/23 07:06 Pulse 78 11/01/23 07:06 Resp 16 11/01/23 07:06 BP 126/61 11/01/23 07:06 Pulse Ox 97 11/01/23 07:06 O2 Del Method Room Air 11/01/23 07:06 O2 Flow Rate 97 10/21/23 03:28 BMI result Body Mass Index 24.0 Gen: in no acute distress Lungs: normal effort Neuro: alert, disoriented, moving all extremities Psych: impaired insight Objective Data Active Medications Acetaminophen (Acetaminophen 325 Mg Tablet) 650 mg PO Q6H PRN PRN Reason: Pain, Mild (Pain Scale 1-3) Last Admin: 09/15/23 11:48 Dose: 650 mg Documented By: DIMAS Atorvastatin Calcium (Atorvastatin Calcium 20 Mg Tablet) 20 mg PO DAILY [facility] Last Admin: 11/01/23 08:11 Dose: 20 mg Documented By: LUKE Enoxaparin Sodium (Enoxaparin Sodium 40 Mg/0.4 Ml Syringe) 40 mg SUBCUT Q24H [facility] Last Admin: 11/01/23 09:26 Dose: 40 mg Documented By: LUKE Escitalopram Oxalate (Escitalopram Oxalate 10 Mg Tablet) 10 mg PO DAILY [facility] Last Admin: 11/01/23 08:11 Dose: 10 mg Documented By: LUKE Finasteride (Finasteride 5 Mg Tablet) 5 mg PO DAILY [facility] Last Admin: 11/01/23 08:11 Dose: 5 mg Documented By: LUKE Glucose (Glucose Gel 15 Gm Gel..Gram.) 15 gm PO Q15M PRN; Protocol PRN Reason: per Hypoglycemia Standing Ord. Guaifenesin/Dextromethorphan (Guaifenesin Dm 100/10/5 Ml 5 Ml Syrup) 10 ml PO Q6H PRN PRN Reason: cough Dextrose (D10) 250 mls @ 750 mls/hr IV Q15M PRN PRN Reason: per Hypoglycemia Standing Ord. Insulin Glargine (Insulin Glargine,Hum.Rec.Anlog 100 Unit/Ml 10 Ml Vial) 25 unit SUBCUT BEDTIME [facility] Last Admin: 10/31/23 21:31 Dose: 25 unit Documented By: ENEDINA Insulin Human Lispro (Insulin Lispro 100 Unit/Ml 3 Ml Vial) 0 unit SUBCUT QIDACHS [facility]; Protocol Last Admin: 11/01/23 07:55 Dose: 2 unit Documented By: LUKE Metformin HCl (Metformin Hcl 1,000 Mg Tablet) 1,000 mg PO BIDWM [facility] Last Admin: 11/01/23 08:11 Dose: 1,000 mg Documented By: LUKE Ondansetron HCl (Ondansetron Hcl 4 Mg/2 Ml Vial) 4 mg IVPUSH Q8H PRN PRN Reason: Nausea and Vomiting Quetiapine Fumarate (Quetiapine Fumarate 50 Mg Tablet) 50 mg PO BEDTIME [facility] Last Admin: 10/31/23 21:31 Dose: 50 mg Documented By: ENEDINA Labs 10/11/23 08:02 11/01/23 05:49 Labs: Laboratory Results - last 24 hr 10/31/23 10/31/23 10/31/23 11:15 16:10 19:36 Hold Purple Top Estim Creat Clear Calc Estimated GFR POC Glucose 230 H 187 H 212 H 11/01/23 11/01/23 05:49 07:50 Hold Purple Top SEE NOTE Estim Creat Clear Calc 86.5 Estimated GFR > 60 POC Glucose 184 H Assessment and Plan (1) Major neurocognitive disorder due to another medical condition: Status: Acute Plan d82 73yo M with dementia who originally presented to ED 07/26/23 with suicidal ideation that he subsequently denied. Found to have no competency so pursuing guardianship then LTC placement symptomatic Covid-19 09/09-09/19/23 [fever only, no hypoxia] dementia - escitalopram, quetiapine HTN - losartan DM2 - MTF, glargine HLD - statin prostatism - finasteride VTE ppx - LMWH dispo - LTC In my clinical judgment, the patient requires continued inpatient hospitalization for the following reasons: placement Quality Stroke Does the patient have a stroke diagnosis?: No VTE Prior VTE?: No VTE Risk Level:: Medical - moderate - high VTE Device Contraindication: Treatment Not Tolerated VTE Drug Contraindication: N/A - Med Ordered
[2023-11-01 11:34] LABS: Glucose, Whole Blood 298 mg/dL (60-115)
[2023-11-01 15:12] VITALS: BP 125/61; PULSE 82; RESP 16; TEMP 36.6; O2SAT 97
[2023-11-01 16:28] LABS: Glucose, Whole Blood 181 mg/dL (60-115)
[2023-11-01 19:40] VITALS: BP 118/56; PULSE 76; RESP 16; TEMP 36; O2SAT 96
[2023-11-01 20:33] LABS: Glucose, Whole Blood 194 mg/dL (60-115)
[2023-11-01] MEDS: QUEtiapine Fumarate 50 MG TABLET PO (20:38)
[2023-11-01] MEDS: Insulin Glargine,Hum.rec.anlog 100 UNIT/ML 10 ML VIAL 25 UNIT SUBCUT (20:38)
[2023-11-02 03:13] VITALS: BP 111/60; PULSE 85; RESP 16; TEMP 36; O2SAT 94
[2023-11-02 07:04] VITALS: BP 109/68; PULSE 77; RESP 16; TEMP 36.3; O2SAT 96
[2023-11-02 07:39] LABS: Glucose, Whole Blood 186 mg/dL (60-115)
[2023-11-02] MEDS: Insulin Lispro 100 UNIT/ML 3 ML VIAL SUBCUT ×3 (07:51→16:35)
[2023-11-02] MEDS: Atorvastatin Calcium 20 MG TABLET PO (08:13)
[2023-11-02] MEDS: metFORMIN HCl 1,000 MG TABLET 1000 MG PO ×2 (08:13→16:35)
[2023-11-02] MEDS: Escitalopram Oxalate 10 MG TABLET PO (08:13)
[2023-11-02] MEDS: Finasteride 5 MG TABLET PO (08:13)
[2023-11-02] MEDS: Enoxaparin Sodium 40 MG/0.4 ML SYRINGE SUBCUT (09:03)
--- NOTE | 2023-11-02 10:55 | HO.PM.IMPN ---
Subjective Subjective Date of Service: 11/02/23 Interval History: no new complaints no new events Review of Systems Review of Systems: Yes all other systems are reviewed and are negative Physical Exam Vital Signs: Vital Signs: Last Vital Signs Temp 97.3 F 11/02/23 07:04 Pulse 77 11/02/23 07:04 Resp 16 11/02/23 07:04 BP 109/68 11/02/23 07:04 Pulse Ox 96 11/02/23 07:04 O2 Del Method Room Air 11/02/23 07:04 O2 Flow Rate 97 10/21/23 03:28 BMI result Body Mass Index 24.0 Gen: in no acute distress Lungs: normal effort Neuro: alert, disoriented, moving all extremities Psych: impaired insight Objective Data Active Medications Acetaminophen (Acetaminophen 325 Mg Tablet) 650 mg PO Q6H PRN PRN Reason: Pain, Mild (Pain Scale 1-3) Last Admin: 09/15/23 11:48 Dose: 650 mg Documented By: DIMAS Atorvastatin Calcium (Atorvastatin Calcium 20 Mg Tablet) 20 mg PO DAILY [facility] Last Admin: 11/02/23 08:13 Dose: 20 mg Documented By: LUKE Enoxaparin Sodium (Enoxaparin Sodium 40 Mg/0.4 Ml Syringe) 40 mg SUBCUT Q24H [facility] Last Admin: 11/02/23 09:03 Dose: 40 mg Documented By: LUKE Escitalopram Oxalate (Escitalopram Oxalate 10 Mg Tablet) 10 mg PO DAILY [facility] Last Admin: 11/02/23 08:13 Dose: 10 mg Documented By: LUKE Finasteride (Finasteride 5 Mg Tablet) 5 mg PO DAILY [facility] Last Admin: 11/02/23 08:13 Dose: 5 mg Documented By: LUKE Glucose (Glucose Gel 15 Gm Gel..Gram.) 15 gm PO Q15M PRN; Protocol PRN Reason: per Hypoglycemia Standing Ord. Guaifenesin/Dextromethorphan (Guaifenesin Dm 100/10/5 Ml 5 Ml Syrup) 10 ml PO Q6H PRN PRN Reason: cough Dextrose (D10) 250 mls @ 750 mls/hr IV Q15M PRN PRN Reason: per Hypoglycemia Standing Ord. Insulin Glargine (Insulin Glargine,Hum.Rec.Anlog 100 Unit/Ml 10 Ml Vial) 25 unit SUBCUT BEDTIME [facility] Last Admin: 11/01/23 20:38 Dose: 25 unit Documented By: JEANNE Insulin Human Lispro (Insulin Lispro 100 Unit/Ml 3 Ml Vial) 0 unit SUBCUT QIDACHS [facility]; Protocol Last Admin: 11/02/23 07:51 Dose: 2 unit Documented By: LUKE Metformin HCl (Metformin Hcl 1,000 Mg Tablet) 1,000 mg PO BIDWM [facility] Last Admin: 11/02/23 08:13 Dose: 1,000 mg Documented By: LUKE Ondansetron HCl (Ondansetron Hcl 4 Mg/2 Ml Vial) 4 mg IVPUSH Q8H PRN PRN Reason: Nausea and Vomiting Quetiapine Fumarate (Quetiapine Fumarate 50 Mg Tablet) 50 mg PO BEDTIME [facility] Last Admin: 11/01/23 20:38 Dose: 50 mg Documented By: JEANNE Labs 10/11/23 08:02 11/01/23 05:49 Labs: Laboratory Results - last 24 hr 11/01/23 11/01/23 11/01/23 11:18 16:20 20:30 POC Glucose 298 H 181 H 194 H 11/02/23 07:07 POC Glucose 186 H Assessment and Plan (1) Major neurocognitive disorder due to another medical condition: Status: Acute Plan d83 73yo M with dementia who originally presented to ED 07/26/23 with suicidal ideation that he subsequently denied. Found to have no competency so pursuing guardianship then LTC placement symptomatic Covid-19 09/09-09/19/23 [fever only, no hypoxia] dementia - escitalopram, quetiapine HTN - losartan DM2 - MTF, glargine HLD - statin prostatism - finasteride VTE ppx - LMWH dispo - LTC In my clinical judgment, the patient requires continued inpatient hospitalization for the following reasons: placement Total time managing care of this patient today: 25 minutes. Quality Stroke Does the patient have a stroke diagnosis?: No VTE Prior VTE?: No VTE Risk Level:: Medical - moderate - high VTE Device Contraindication: Treatment Not Tolerated VTE Drug Contraindication: N/A - Med Ordered
[2023-11-02 11:09] LABS: Glucose, Whole Blood 191 mg/dL (60-115)
[2023-11-02 15:10] VITALS: BP 117/88; PULSE 80; RESP 18; TEMP 36.6; O2SAT 97
[2023-11-02 16:15] LABS: Glucose, Whole Blood 184 mg/dL (60-115)
[2023-11-02 19:17] VITALS: BP 127/59; PULSE 75; RESP 16; TEMP 36.5; O2SAT 97
[2023-11-02 20:40] LABS: Glucose, Whole Blood 142 mg/dL (60-115)
[2023-11-02] MEDS: QUEtiapine Fumarate 50 MG TABLET PO (20:48)
[2023-11-02] MEDS: Insulin Glargine,Hum.rec.anlog 100 UNIT/ML 10 ML VIAL 25 UNIT SUBCUT (20:48)
[2023-11-03 02:36] VITALS: BP 111/62; PULSE 80; RESP 18; TEMP 36.4; O2SAT 98
[2023-11-03 07:24] VITALS: BP 128/60; PULSE 73; RESP 16; TEMP 36.3; O2SAT 95
[2023-11-03 07:32] LABS: Glucose, Whole Blood 197 mg/dL (60-115)
[2023-11-03] MEDS: Insulin Lispro 100 UNIT/ML 3 ML VIAL SUBCUT ×3 (07:50→20:30)
[2023-11-03] MEDS: Escitalopram Oxalate 10 MG TABLET PO (07:50)
[2023-11-03] MEDS: Finasteride 5 MG TABLET PO (07:51)
[2023-11-03] MEDS: metFORMIN HCl 1,000 MG TABLET 1000 MG PO ×2 (07:51→17:32)
[2023-11-03] MEDS: Atorvastatin Calcium 20 MG TABLET PO (07:51)
[2023-11-03] MEDS: Enoxaparin Sodium 40 MG/0.4 ML SYRINGE SUBCUT (10:26)
--- NOTE | 2023-11-03 11:06 | P.PNIM_ITS ---
Subjective Subjective Date of Service: 11/03/23 Interval History: no complaints Review of Systems Review of Systems: Yes all other systems are reviewed and are negative Physical Exam 2 Vital Signs: Vital Signs: Last Vital Signs Temp 97.3 F 11/03/23 07:24 Pulse 73 11/03/23 07:24 Resp 16 11/03/23 07:24 BP 128/60 11/03/23 07:24 Pulse Ox 95 11/03/23 07:24 O2 Del Method Room Air 11/03/23 07:24 O2 Flow Rate 97 10/21/23 03:28 BMI result Body Mass Index 24.0 Gen: in no acute distress Lungs: normal effort Neuro: alert, disoriented, moving all extremities Psych: impaired insight Objective Data Active Medications Acetaminophen (Acetaminophen 325 Mg Tablet) 650 mg PO Q6H PRN PRN Reason: Pain, Mild (Pain Scale 1-3) Last Admin: 09/15/23 11:48 Dose: 650 mg Documented By: DIMAS Atorvastatin Calcium (Atorvastatin Calcium 20 Mg Tablet) 20 mg PO DAILY [facility] Last Admin: 11/03/23 07:51 Dose: 20 mg Documented By: JUAN ANTONIO Enoxaparin Sodium (Enoxaparin Sodium 40 Mg/0.4 Ml Syringe) 40 mg SUBCUT Q24H [facility] Last Admin: 11/03/23 10:26 Dose: 40 mg Documented By: JUAN ANTONIO Escitalopram Oxalate (Escitalopram Oxalate 10 Mg Tablet) 10 mg PO DAILY [facility] Last Admin: 11/03/23 07:50 Dose: 10 mg Documented By: JUAN ANTONIO Finasteride (Finasteride 5 Mg Tablet) 5 mg PO DAILY [facility] Last Admin: 11/03/23 07:51 Dose: 5 mg Documented By: JUAN ANTONIO Glucose (Glucose Gel 15 Gm Gel..Gram.) 15 gm PO Q15M PRN; Protocol PRN Reason: per Hypoglycemia Standing Ord. Guaifenesin/Dextromethorphan (Guaifenesin Dm 100/10/5 Ml 5 Ml Syrup) 10 ml PO Q6H PRN PRN Reason: cough Dextrose (D10) 250 mls @ 750 mls/hr IV Q15M PRN PRN Reason: per Hypoglycemia Standing Ord. Insulin Glargine (Insulin Glargine,Hum.Rec.Anlog 100 Unit/Ml 10 Ml Vial) 25 unit SUBCUT BEDTIME [facility] Last Admin: 11/02/23 20:48 Dose: 25 unit Documented By: LIGIA Insulin Human Lispro (Insulin Lispro 100 Unit/Ml 3 Ml Vial) 0 unit SUBCUT QIDACHS [facility]; Protocol Last Admin: 11/03/23 07:50 Dose: 2 unit Documented By: JUAN ANTONIO Metformin HCl (Metformin Hcl 1,000 Mg Tablet) 1,000 mg PO BIDWM [facility] Last Admin: 11/03/23 07:51 Dose: 1,000 mg Documented By: JUAN ANTONIO Ondansetron HCl (Ondansetron Hcl 4 Mg/2 Ml Vial) 4 mg IVPUSH Q8H PRN PRN Reason: Nausea and Vomiting Quetiapine Fumarate (Quetiapine Fumarate 50 Mg Tablet) 50 mg PO BEDTIME [facility] Last Admin: 11/02/23 20:48 Dose: 50 mg Documented By: LIGIA Labs 10/11/23 08:02 11/01/23 05:49 Labs: Laboratory Results - last 24 hr 11/02/23 11/02/23 11/02/23 11:06 16:05 20:36 POC Glucose 191 H 184 H 142 H 11/03/23 07:26 POC Glucose 197 H Assessment and Plan (1) Major neurocognitive disorder due to another medical condition: Status: Acute Plan [id number] 73yo M with dementia who originally presented to ED 07/26/23 with suicidal ideation that he subsequently denied. Found to have no competency so pursuing guardianship then LTC placement symptomatic Covid-19 09/09-09/19/23 [fever only, no hypoxia] dementia - escitalopram, quetiapine HTN - losartan DM2 - MTF, glargine HLD - statin prostatism - finasteride VTE ppx - LMWH dispo - LTC In my clinical judgment, the patient requires continued inpatient hospitalization for the following reasons: placement Total time managing care of this patient today: 25 minutes. Quality Stroke Does the patient have a stroke diagnosis?: No VTE Prior VTE?: No VTE Risk Level:: Medical - moderate - high VTE Device Contraindication: Treatment Not Tolerated VTE Drug Contraindication: N/A - Med Ordered
[2023-11-03 11:14] LABS: Glucose, Whole Blood 273 mg/dL (60-115)
--- NOTE | 2023-11-03 11:59 | MHC.CM.PN ---
Verification and access to funds is pending. A VM was left for Shipu requesting update on Status of fund availability at [facility]. A return call was requested. Contact info provided. CM will follow
[2023-11-03 15:31] VITALS: BP 120/60; PULSE 73; RESP 20; TEMP 36.7; O2SAT 96
[2023-11-03 16:22] LABS: Glucose, Whole Blood 137 mg/dL (60-115)
--- NOTE | 2023-11-03 16:34 | HO.SKINPHOTO ---
Location:Right Ear Category: Stage: Length: Width: Depth: cm Location: Right Ear Category: Stage: Length: Width: Depth: cm Location: Category: Stage: Length: Width: Depth: cm Location: Category: Stage: Length: Width: Depth: cm Location: Category: Stage: Length: Width: Depth: cm Location: Category: Stage: Length: Width: Depth: cm
[2023-11-03 19:09] VITALS: BP 123/63; PULSE 74; RESP 16; TEMP 36.6; O2SAT 98
[2023-11-03 20:04] LABS: Glucose, Whole Blood 183 mg/dL (60-115)
[2023-11-03] MEDS: Insulin Glargine,Hum.rec.anlog 100 UNIT/ML 10 ML VIAL 25 UNIT SUBCUT (20:30)
[2023-11-03] MEDS: QUEtiapine Fumarate 50 MG TABLET PO (20:31)
[2023-11-04 03:20] VITALS: BP 106/52; PULSE 68; RESP 16; TEMP 36.3; O2SAT 98
[2023-11-04 07:04] VITALS: BP 102/55; PULSE 69; RESP 18; TEMP 36.3; O2SAT 96
[2023-11-04 07:26] LABS: Glucose, Whole Blood 164 mg/dL (60-115)
[2023-11-04] MEDS: metFORMIN HCl 1,000 MG TABLET 1000 MG PO ×2 (08:22→16:53)
[2023-11-04] MEDS: Insulin Lispro 100 UNIT/ML 3 ML VIAL SUBCUT ×4 (08:22→21:42)
[2023-11-04] MEDS: Atorvastatin Calcium 20 MG TABLET PO (08:23)
[2023-11-04] MEDS: Escitalopram Oxalate 10 MG TABLET PO (08:23)
[2023-11-04] MEDS: Finasteride 5 MG TABLET PO (08:23)
[2023-11-04] MEDS: predniSONE 20 MG TABLET 40 MG PO ×2 (09:36→16:52)
[2023-11-04] MEDS: Enoxaparin Sodium 40 MG/0.4 ML SYRINGE SUBCUT (09:37)
[2023-11-04] MEDS: valACYclovir HCL 1,000 MG TABLET 1000 MG PO ×2 (09:37→16:52)
--- NOTE | 2023-11-04 10:21 | MHC.IC ---
SHINGLES TO R EAR - Please keep covered at all times.
[2023-11-04 11:05] LABS: Glucose, Whole Blood 239 mg/dL (60-115)
--- NOTE | 2023-11-04 11:09 | HO.PM.IMPN ---
Subjective Subjective Date of Service: 11/04/23 Interval History: c/o acute R earlobe burning pain and noted to have vesicle/ulceration Review of Systems Review of Systems: Yes all other systems are reviewed and are negative Physical Exam Vital Signs: Vital Signs: Last Vital Signs Temp 97.3 F 11/04/23 07:04 Pulse 69 11/04/23 07:04 Resp 18 11/04/23 07:04 BP 102/55 L 11/04/23 07:04 Pulse Ox 96 11/04/23 07:04 O2 Del Method Room Air 11/04/23 07:04 O2 Flow Rate 97 10/21/23 03:28 BMI result Body Mass Index 24.0 Gen: in no acute distress HEENT: painful ulceration/vesicle on inner surface of R tragus Neck: supple Lungs: clear to auscultation bilaterally Heart: regular rate and rhythm, no murmurs Abd: soft, non-tender, non-distended Ext: no edema Skin: warm/well-perfused Neuro: alert and oriented x3, no facial droop Psych: appropriate affect Objective Data Active Medications Acetaminophen (Acetaminophen 325 Mg Tablet) 650 mg PO Q6H PRN PRN Reason: Pain, Mild (Pain Scale 1-3) Last Admin: 09/15/23 11:48 Dose: 650 mg Documented By: DIMAS Atorvastatin Calcium (Atorvastatin Calcium 20 Mg Tablet) 20 mg PO DAILY [facility] Last Admin: 11/04/23 08:23 Dose: 20 mg Documented By: JUAN ANTONIO Enoxaparin Sodium (Enoxaparin Sodium 40 Mg/0.4 Ml Syringe) 40 mg SUBCUT Q24H [facility] Last Admin: 11/04/23 09:37 Dose: 40 mg Documented By: JUAN ANTONIO Escitalopram Oxalate (Escitalopram Oxalate 10 Mg Tablet) 10 mg PO DAILY [facility] Last Admin: 11/04/23 08:23 Dose: 10 mg Documented By: JUAN ANTONIO Finasteride (Finasteride 5 Mg Tablet) 5 mg PO DAILY [facility] Last Admin: 11/04/23 08:23 Dose: 5 mg Documented By: JUAN ANTONIO Glucose (Glucose Gel 15 Gm Gel..Gram.) 15 gm PO Q15M PRN; Protocol PRN Reason: per Hypoglycemia Standing Ord. Guaifenesin/Dextromethorphan (Guaifenesin Dm 100/10/5 Ml 5 Ml Syrup) 10 ml PO Q6H PRN PRN Reason: cough Dextrose (D10) 250 mls @ 750 mls/hr IV Q15M PRN PRN Reason: per Hypoglycemia Standing Ord. Insulin Glargine (Insulin Glargine,Hum.Rec.Anlog 100 Unit/Ml 10 Ml Vial) 25 unit SUBCUT BEDTIME [facility] Last Admin: 11/03/23 20:30 Dose: 25 unit Documented By: ENEDINA Insulin Human Lispro (Insulin Lispro 100 Unit/Ml 3 Ml Vial) 0 unit SUBCUT QIDACHS [facility]; Protocol Last Admin: 11/04/23 08:22 Dose: 2 unit Documented By: JUAN ANTONIO Metformin HCl (Metformin Hcl 1,000 Mg Tablet) 1,000 mg PO BIDWM [facility] Last Admin: 11/04/23 08:22 Dose: 1,000 mg Documented By: JUAN ANTONIO Ondansetron HCl (Ondansetron Hcl 4 Mg/2 Ml Vial) 4 mg IVPUSH Q8H PRN PRN Reason: Nausea and Vomiting Prednisone (Prednisone 20 Mg Tablet) 40 mg PO BIDWM [facility] Stop: 11/08/23 17:01 Last Admin: 11/04/23 09:36 Dose: 40 mg Documented By: JUAN ANTONIO Quetiapine Fumarate (Quetiapine Fumarate 50 Mg Tablet) 50 mg PO BEDTIME [facility] Last Admin: 11/03/23 20:31 Dose: 50 mg Documented By: ENEDINA Valacyclovir HCl (Valacyclovir Hcl 1,000 Mg Tablet) 1,000 mg PO Q8H [facility] Stop: 11/14/23 01:16 Last Admin: 11/04/23 09:37 Dose: 1,000 mg Documented By: JUAN ANTONIO Labs 10/11/23 08:02 11/01/23 05:49 Labs: Laboratory Results - last 24 hr 11/03/23 11/03/23 11/03/23 11:10 16:14 19:59 POC Glucose 273 H 137 H 183 H 11/04/23 11/04/23 07:07 11:00 POC Glucose 164 H 239 H Assessment and Plan (1) Major neurocognitive disorder due to another medical condition: Status: Acute Plan d85 73yo M with dementia who originally presented to ED 07/26/23 with suicidal ideation that he subsequently denied. 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 will give valacylovir 11/03-11/13, prednisone 11/03-11/08. contact precautions dementia - escitalopram, quetiapine HTN - losartan DM2 - MTF, glargine HLD - statin prostatism - finasteride VTE ppx - LMWH dispo - LTC In my clinical judgment, the patient requires continued inpatient hospitalization for the following reasons: placement Total time managing care of this patient today: 35 minutes. Quality Stroke Does the patient have a stroke diagnosis?: No VTE Prior VTE?: No VTE Risk Level:: Medical - moderate - high VTE Device Contraindication: Treatment Not Tolerated VTE Drug Contraindication: N/A - Med Ordered
[2023-11-04 15:56] VITALS: BP 112/54; PULSE 70; RESP 20; TEMP 36.6; O2SAT 97
[2023-11-04 16:41] LABS: Glucose, Whole Blood 249 mg/dL (60-115)
[2023-11-04 19:56] VITALS: BP 126/63; PULSE 85; RESP 20; TEMP 36.6; O2SAT 98
[2023-11-04 20:21] LABS: Glucose, Whole Blood 292 mg/dL (60-115)
[2023-11-04] MEDS: Insulin Glargine,Hum.rec.anlog 100 UNIT/ML 10 ML VIAL 25 UNIT SUBCUT (21:42)
[2023-11-04] MEDS: QUEtiapine Fumarate 50 MG TABLET PO (21:42)
[2023-11-05] MEDS: valACYclovir HCL 1,000 MG TABLET 1000 MG PO ×3 (00:52→16:43)
[2023-11-05 04:00] VITALS: BP 104/59; PULSE 85; RESP 16; TEMP 36.1; O2SAT 97
[2023-11-05 07:39] VITALS: BP 104/54; PULSE 85; RESP 16; TEMP 36.1; O2SAT 96
[2023-11-05 08:04] LABS: Glucose, Whole Blood 244 mg/dL (60-115)
[2023-11-05] MEDS: Escitalopram Oxalate 10 MG TABLET PO (08:10)
[2023-11-05] MEDS: Finasteride 5 MG TABLET PO (08:10)
[2023-11-05] MEDS: metFORMIN HCl 1,000 MG TABLET 1000 MG PO ×2 (08:10→16:43)
[2023-11-05] MEDS: Atorvastatin Calcium 20 MG TABLET PO (08:10)
[2023-11-05] MEDS: predniSONE 20 MG TABLET 40 MG PO ×2 (08:10→16:43)
[2023-11-05] MEDS: Insulin Lispro 100 UNIT/ML 3 ML VIAL SUBCUT ×4 (08:10→20:32)
--- NOTE | 2023-11-05 10:33 | P.PNIM_ITS ---
Subjective Subjective Date of Service: 11/05/23 Interval History: ear pain improved no other complaints Review of Systems Review of Systems: Yes all other systems are reviewed and are negative Physical Exam 2 Vital Signs: Vital Signs: Last Vital Signs Temp 97.0 F 11/05/23 07:39 Pulse 85 11/05/23 07:39 Resp 16 11/05/23 07:39 BP 104/54 L 11/05/23 07:39 Pulse Ox 96 11/05/23 07:39 O2 Del Method Room Air 11/05/23 07:39 O2 Flow Rate 97 10/21/23 03:28 BMI result Body Mass Index 24.0 Gen: in no acute distress HEENT: ulceration/vesicle on inner surface of R tragus Neck: supple Lungs: clear to auscultation bilaterally Heart: regular rate and rhythm, no murmurs Abd: soft, non-tender, non-distended Ext: no edema Skin: warm/well-perfused Neuro: alert and oriented x3, no facial droop Psych: appropriate affect Objective Data Active Medications Acetaminophen (Acetaminophen 325 Mg Tablet) 650 mg PO Q6H PRN PRN Reason: Pain, Mild (Pain Scale 1-3) Last Admin: 09/15/23 11:48 Dose: 650 mg Documented By: DIMAS Atorvastatin Calcium (Atorvastatin Calcium 20 Mg Tablet) 20 mg PO DAILY [facility] Last Admin: 11/05/23 08:10 Dose: 20 mg Documented By: DENISSE Enoxaparin Sodium (Enoxaparin Sodium 40 Mg/0.4 Ml Syringe) 40 mg SUBCUT Q24H [facility] Last Admin: 11/04/23 09:37 Dose: 40 mg Documented By: JUAN ANTONIO Escitalopram Oxalate (Escitalopram Oxalate 10 Mg Tablet) 10 mg PO DAILY [facility] Last Admin: 11/05/23 08:10 Dose: 10 mg Documented By: DENISSE Finasteride (Finasteride 5 Mg Tablet) 5 mg PO DAILY [facility] Last Admin: 11/05/23 08:10 Dose: 5 mg Documented By: DENISSE Glucose (Glucose Gel 15 Gm Gel..Gram.) 15 gm PO Q15M PRN; Protocol PRN Reason: per Hypoglycemia Standing Ord. Guaifenesin/Dextromethorphan (Guaifenesin Dm 100/10/5 Ml 5 Ml Syrup) 10 ml PO Q6H PRN PRN Reason: cough Dextrose (D10) 250 mls @ 750 mls/hr IV Q15M PRN PRN Reason: per Hypoglycemia Standing Ord. Insulin Glargine (Insulin Glargine,Hum.Rec.Anlog 100 Unit/Ml 10 Ml Vial) 25 unit SUBCUT BEDTIME [facility] Last Admin: 11/04/23 21:42 Dose: 25 unit Documented By: JUAN ANTONIO Insulin Human Lispro (Insulin Lispro 100 Unit/Ml 3 Ml Vial) 0 unit SUBCUT QIDACHS [facility]; Protocol Last Admin: 11/05/23 08:10 Dose: 4 unit Documented By: DENISSE Metformin HCl (Metformin Hcl 1,000 Mg Tablet) 1,000 mg PO BIDWM [facility] Last Admin: 11/05/23 08:10 Dose: 1,000 mg Documented By: DENISSE Ondansetron HCl (Ondansetron Hcl 4 Mg/2 Ml Vial) 4 mg IVPUSH Q8H PRN PRN Reason: Nausea and Vomiting Prednisone (Prednisone 20 Mg Tablet) 40 mg PO BIDWM [facility] Stop: 11/08/23 17:01 Last Admin: 11/05/23 08:10 Dose: 40 mg Documented By: DENISSE Quetiapine Fumarate (Quetiapine Fumarate 50 Mg Tablet) 50 mg PO BEDTIME [facility] Last Admin: 11/04/23 21:42 Dose: 50 mg Documented By: JUAN ANTONIO Valacyclovir HCl (Valacyclovir Hcl 1,000 Mg Tablet) 1,000 mg PO Q8H [facility] Stop: 11/14/23 01:16 Last Admin: 11/05/23 08:10 Dose: 1,000 mg Documented By: DENISSE Labs 10/11/23 08:02 11/01/23 05:49 Labs: Laboratory Results - last 24 hr 11/04/23 11/04/23 11/04/23 11:00 16:32 20:07 POC Glucose 239 H 249 H 292 H 11/05/23 07:41 POC Glucose 244 H Assessment and Plan (1) Major neurocognitive disorder due to another medical condition: Status: Acute Plan d86 73yo M with dementia who originally presented to ED 07/26/23 with suicidal ideation that he subsequently denied. 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 valacylovir 11/03-11/13, prednisone 11/03-11/08. contact precautions. pain improving dementia - escitalopram, quetiapine HTN - losartan DM2 - MTF, glargine HLD - statin prostatism - finasteride VTE ppx - LMWH dispo - LTC In my clinical judgment, the patient requires continued inpatient hospitalization for the following reasons: placement Total time managing care of this patient today: 35 minutes. Quality Stroke Does the patient have a stroke diagnosis?: No VTE Prior VTE?: No VTE Risk Level:: Medical - moderate - high VTE Device Contraindication: Treatment Not Tolerated VTE Drug Contraindication: N/A - Med Ordered
[2023-11-05 11:11] LABS: Glucose, Whole Blood 220 mg/dL (60-115)
[2023-11-05] MEDS: Enoxaparin Sodium 40 MG/0.4 ML SYRINGE SUBCUT (11:42)
--- NOTE | 2023-11-05 14:38 | MHC.CM.PN ---
Call Placed to Ana Maria Valdez. T/W spoke with Mckenzie. [employer] has notified Ana Maria that a 2nd person is listed on the account. [employer] legal dept is reviewing the account. Per Mckenzie, we should have an answer in 1-2 days. Plan is to follow up with Mckenzie later this week. DP LTC via BLS.
[2023-11-05 15:28] VITALS: BP 132/60; PULSE 98; RESP 17; TEMP 36.2; O2SAT 97
[2023-11-05 16:24] LABS: Glucose, Whole Blood 355 mg/dL (60-115)
[2023-11-05 19:50] VITALS: BP 123/62; PULSE 98; RESP 18; TEMP 36.6; O2SAT 97
[2023-11-05 20:11] LABS: Glucose, Whole Blood 357 mg/dL (60-115)
[2023-11-05] MEDS: QUEtiapine Fumarate 50 MG TABLET PO (20:31)
[2023-11-05] MEDS: Insulin Glargine,Hum.rec.anlog 100 UNIT/ML 10 ML VIAL 25 UNIT SUBCUT (20:32)
--- NOTE | 2023-11-05 20:34 | MHC.PIE ---
p; poc 357. note; pt due for lantus 25u and admelog 10u i; dr cleary notified e; will cont to monitor
[2023-11-06] MEDS: valACYclovir HCL 1,000 MG TABLET 1000 MG PO ×4 (02:56→23:51)
[2023-11-06 07:24] VITALS: BP 108/56; PULSE 78; RESP 18; TEMP 36.2; O2SAT 96
[2023-11-06 07:34] LABS: Glucose, Whole Blood 252 mg/dL (60-115)
[2023-11-06] MEDS: Insulin Lispro 100 UNIT/ML 3 ML VIAL SUBCUT ×4 (07:40→20:59)
[2023-11-06] MEDS: predniSONE 20 MG TABLET 40 MG PO ×2 (07:41→16:53)
[2023-11-06] MEDS: metFORMIN HCl 1,000 MG TABLET 1000 MG PO ×2 (07:41→16:53)
[2023-11-06] MEDS: Enoxaparin Sodium 40 MG/0.4 ML SYRINGE SUBCUT (09:30)
[2023-11-06] MEDS: Escitalopram Oxalate 10 MG TABLET PO (09:31)
[2023-11-06] MEDS: Atorvastatin Calcium 20 MG TABLET PO (09:31)
[2023-11-06] MEDS: Finasteride 5 MG TABLET PO (09:31)
--- NOTE | 2023-11-06 09:50 | HO.PM.IMPN ---
Subjective Subjective Date of Service: 11/06/23 Interval History: burning R ear pain improving hyperglycemic Review of Systems Review of Systems: Yes all other systems are reviewed and are negative Physical Exam Vital Signs: Vital Signs: Last Vital Signs Temp 97.1 F 11/06/23 07:24 Pulse 78 11/06/23 07:24 Resp 18 11/06/23 07:24 BP 108/56 L 11/06/23 07:24 Pulse Ox 96 11/06/23 07:24 O2 Del Method Room Air 11/06/23 07:24 O2 Flow Rate 97 10/21/23 03:28 BMI result Body Mass Index 24.0 Gen: in no acute distress HEENT: ulceration/vesicle on inner surface of R tragus Neck: supple Lungs: clear to auscultation bilaterally Heart: regular rate and rhythm, no murmurs Abd: soft, non-tender, non-distended Ext: no edema Skin: warm/well-perfused Neuro: alert and oriented x3, no facial droop Psych: appropriate affect Objective Data Active Medications Acetaminophen (Acetaminophen 325 Mg Tablet) 650 mg PO Q6H PRN PRN Reason: Pain, Mild (Pain Scale 1-3) Last Admin: 09/15/23 11:48 Dose: 650 mg Documented By: DIMAS Atorvastatin Calcium (Atorvastatin Calcium 20 Mg Tablet) 20 mg PO DAILY [facility] Last Admin: 11/06/23 09:31 Dose: 20 mg Documented By: LUKE Enoxaparin Sodium (Enoxaparin Sodium 40 Mg/0.4 Ml Syringe) 40 mg SUBCUT Q24H [facility] Last Admin: 11/06/23 09:30 Dose: 40 mg Documented By: LUKE Escitalopram Oxalate (Escitalopram Oxalate 10 Mg Tablet) 10 mg PO DAILY [facility] Last Admin: 11/06/23 09:31 Dose: 10 mg Documented By: LUKE Finasteride (Finasteride 5 Mg Tablet) 5 mg PO DAILY [facility] Last Admin: 11/06/23 09:31 Dose: 5 mg Documented By: LUKE Glucose (Glucose Gel 15 Gm Gel..Gram.) 15 gm PO Q15M PRN; Protocol PRN Reason: per Hypoglycemia Standing Ord. Guaifenesin/Dextromethorphan (Guaifenesin Dm 100/10/5 Ml 5 Ml Syrup) 10 ml PO Q6H PRN PRN Reason: cough Dextrose (D10) 250 mls @ 750 mls/hr IV Q15M PRN PRN Reason: per Hypoglycemia Standing Ord. Insulin Glargine (Insulin Glargine,Hum.Rec.Anlog 100 Unit/Ml 10 Ml Vial) 30 unit SUBCUT BEDTIME [facility] Insulin Human Lispro (Insulin Lispro 100 Unit/Ml 3 Ml Vial) 0 unit SUBCUT QIDACHS [facility]; Protocol Last Admin: 11/06/23 07:40 Dose: 9 unit Documented By: LUKE Metformin HCl (Metformin Hcl 1,000 Mg Tablet) 1,000 mg PO BIDWM [facility] Last Admin: 11/06/23 07:41 Dose: 1,000 mg Documented By: LUKE Ondansetron HCl (Ondansetron Hcl 4 Mg/2 Ml Vial) 4 mg IVPUSH Q8H PRN PRN Reason: Nausea and Vomiting Prednisone (Prednisone 20 Mg Tablet) 40 mg PO BIDWM [facility] Stop: 11/08/23 17:01 Last Admin: 11/06/23 07:41 Dose: 40 mg Documented By: LUKE Quetiapine Fumarate (Quetiapine Fumarate 50 Mg Tablet) 50 mg PO BEDTIME [facility] Last Admin: 11/05/23 20:31 Dose: 50 mg Documented By: WILNER Valacyclovir HCl (Valacyclovir Hcl 1,000 Mg Tablet) 1,000 mg PO Q8H [facility] Stop: 11/14/23 01:16 Last Admin: 11/06/23 09:31 Dose: 1,000 mg Documented By: LUKE Labs 10/11/23 08:02 11/01/23 05:49 Labs: Laboratory Results - last 24 hr 11/05/23 11/05/23 11/05/23 11:01 16:20 19:47 POC Glucose 220 H 355 H* 357 H* 11/06/23 07:26 POC Glucose 252 H Assessment and Plan (1) Major neurocognitive disorder due to another medical condition: Status: Acute Plan [id number] 73yo M with dementia who originally presented to ED 07/26/23 with suicidal ideation that he subsequently denied. 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 valacylovir 11/03-11/13, prednisone 11/03-11/08. contact precautions. pain improving dementia - escitalopram, quetiapine HTN - losartan DM2 with steroid-induced hyperglycemia - MTF, increase glargine + lispro HLD - statin prostatism - finasteride VTE ppx - LMWH dispo - LTC In my clinical judgment, the patient requires continued inpatient hospitalization for the following reasons: placement Total time managing care of this patient today: 35 minutes. Quality Stroke Does the patient have a stroke diagnosis?: No VTE Prior VTE?: No VTE Risk Level:: Medical - moderate - high VTE Device Contraindication: Treatment Not Tolerated VTE Drug Contraindication: N/A - Med Ordered
[2023-11-06 11:44] LABS: Glucose, Whole Blood 340 mg/dL (60-115)
[2023-11-06 15:20] VITALS: BP 127/60; PULSE 79; RESP 16; TEMP 36.6; O2SAT 95
--- NOTE | 2023-11-06 15:24 | MHC.CM.PN ---
Per guardian patient has 39k available in [employer] and will have access as of 11am 11/06. Reviewed plan for LTC placement. Guardian does not have facility preferences, but prefers for patient to be placed in [facility] if possible but agreeable to expanding search if there is bed availability elsewhere. Referrals sent via [facility]. CM will continue to follow.
[2023-11-06 16:29] LABS: Glucose, Whole Blood 331 mg/dL (60-115)
[2023-11-06 19:36] VITALS: BP 133/60; PULSE 78; RESP 18; TEMP 36.1; O2SAT 96
[2023-11-06 20:30] LABS: Glucose, Whole Blood 277 mg/dL (60-115)
[2023-11-06] MEDS: QUEtiapine Fumarate 50 MG TABLET PO (20:58)
[2023-11-06] MEDS: Insulin Glargine,Hum.rec.anlog 100 UNIT/ML 10 ML VIAL 30 UNIT SUBCUT (20:58)
[2023-11-07 03:51] VITALS: BP 120/60; PULSE 73; RESP 16; TEMP 36.1; O2SAT 96
[2023-11-07 07:39] LABS: Glucose, Whole Blood 242 mg/dL (60-115)
[2023-11-07 07:42] VITALS: BP 131/71; PULSE 70; RESP 12; TEMP 36.2; O2SAT 97
[2023-11-07] MEDS: metFORMIN HCl 1,000 MG TABLET 1000 MG PO ×2 (07:47→17:02)
[2023-11-07] MEDS: Insulin Lispro 100 UNIT/ML 3 ML VIAL SUBCUT ×4 (07:47→21:03)
[2023-11-07] MEDS: predniSONE 20 MG TABLET 40 MG PO ×2 (07:47→17:01)
[2023-11-07] MEDS: Enoxaparin Sodium 40 MG/0.4 ML SYRINGE SUBCUT (09:33)
[2023-11-07] MEDS: Escitalopram Oxalate 10 MG TABLET PO (09:33)
[2023-11-07] MEDS: Atorvastatin Calcium 20 MG TABLET PO (09:33)
[2023-11-07] MEDS: Finasteride 5 MG TABLET PO (09:33)
[2023-11-07] MEDS: valACYclovir HCL 1,000 MG TABLET 1000 MG PO ×2 (09:33→17:02)
--- NOTE | 2023-11-07 10:49 | HO.PM.IMPN ---
Subjective Subjective Date of Service: 11/07/23 Interval History: ear pain about the same no facial droop Review of Systems Review of Systems: Yes all other systems are reviewed and are negative Physical Exam Vital Signs: Vital Signs: Last Vital Signs Temp 97.1 F 11/07/23 07:42 Pulse 70 11/07/23 07:42 Resp 12 11/07/23 07:42 BP 131/71 11/07/23 07:42 Pulse Ox 97 11/07/23 07:42 O2 Del Method Room Air 11/07/23 07:42 O2 Flow Rate 97 10/21/23 03:28 BMI result Body Mass Index 24.0 Gen: in no acute distress HEENT: ulceration/vesicle on inner surface of R tragus Neck: supple Lungs: clear to auscultation bilaterally Heart: regular rate and rhythm, no murmurs Abd: soft, non-tender, non-distended Ext: no edema Skin: warm/well-perfused Neuro: alert and oriented x3, no facial droop Psych: appropriate affect Objective Data Active Medications Acetaminophen (Acetaminophen 325 Mg Tablet) 650 mg PO Q6H PRN PRN Reason: Pain, Mild (Pain Scale 1-3) Last Admin: 09/15/23 11:48 Dose: 650 mg Documented By: DIMAS Atorvastatin Calcium (Atorvastatin Calcium 20 Mg Tablet) 20 mg PO DAILY [facility] Last Admin: 11/07/23 09:33 Dose: 20 mg Documented By: LUKE Enoxaparin Sodium (Enoxaparin Sodium 40 Mg/0.4 Ml Syringe) 40 mg SUBCUT Q24H [facility] Last Admin: 11/07/23 09:33 Dose: 40 mg Documented By: LUKE Escitalopram Oxalate (Escitalopram Oxalate 10 Mg Tablet) 10 mg PO DAILY [facility] Last Admin: 11/07/23 09:33 Dose: 10 mg Documented By: LUKE Finasteride (Finasteride 5 Mg Tablet) 5 mg PO DAILY [facility] Last Admin: 11/07/23 09:33 Dose: 5 mg Documented By: LUKE Glucose (Glucose Gel 15 Gm Gel..Gram.) 15 gm PO Q15M PRN; Protocol PRN Reason: per Hypoglycemia Standing Ord. Guaifenesin/Dextromethorphan (Guaifenesin Dm 100/10/5 Ml 5 Ml Syrup) 10 ml PO Q6H PRN PRN Reason: cough Dextrose (D10) 250 mls @ 750 mls/hr IV Q15M PRN PRN Reason: per Hypoglycemia Standing Ord. Insulin Glargine (Insulin Glargine,Hum.Rec.Anlog 100 Unit/Ml 10 Ml Vial) 32 unit SUBCUT BEDTIME [facility] Insulin Human Lispro (Insulin Lispro 100 Unit/Ml 3 Ml Vial) 0 unit SUBCUT QIDACHS [facility]; Protocol Last Admin: 11/07/23 07:47 Dose: 7 unit Documented By: LUKE Metformin HCl (Metformin Hcl 1,000 Mg Tablet) 1,000 mg PO BIDWM [facility] Last Admin: 11/07/23 07:47 Dose: 1,000 mg Documented By: LUKE Ondansetron HCl (Ondansetron Hcl 4 Mg/2 Ml Vial) 4 mg IVPUSH Q8H PRN PRN Reason: Nausea and Vomiting Prednisone (Prednisone 20 Mg Tablet) 40 mg PO BIDWM [facility] Stop: 11/08/23 17:01 Last Admin: 11/07/23 07:47 Dose: 40 mg Documented By: LUKE Quetiapine Fumarate (Quetiapine Fumarate 50 Mg Tablet) 50 mg PO BEDTIME [facility] Last Admin: 11/06/23 20:58 Dose: 50 mg Documented By: WILNER Valacyclovir HCl (Valacyclovir Hcl 1,000 Mg Tablet) 1,000 mg PO Q8H [facility] Stop: 11/14/23 01:16 Last Admin: 11/07/23 09:33 Dose: 1,000 mg Documented By: LUKE Labs 10/11/23 08:02 11/01/23 05:49 Labs: Laboratory Results - last 24 hr 11/06/23 11/06/23 11/06/23 11:38 16:24 20:23 POC Glucose 340 H 331 H 277 H 11/07/23 07:35 POC Glucose 242 H Assessment and Plan (1) Major neurocognitive disorder due to another medical condition: Status: Acute Plan d88 73yo M with dementia who originally presented to ED 07/26/23 with suicidal ideation that he subsequently denied. 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 valacylovir 11/03-11/13, prednisone 11/03-11/08. contact precautions. pain improving dementia - escitalopram, quetiapine HTN - losartan DM2 with steroid-induced hyperglycemia - MTF, increase glargine + lispro HLD - statin prostatism - finasteride VTE ppx - LMWH dispo - LTC In my clinical judgment, the patient requires continued inpatient hospitalization for the following reasons: placement Total time managing care of this patient today: 35 minutes. Quality Stroke Does the patient have a stroke diagnosis?: No VTE Prior VTE?: No VTE Risk Level:: Medical - moderate - high VTE Device Contraindication: Treatment Not Tolerated VTE Drug Contraindication: N/A - Med Ordered
[2023-11-07 11:32] LABS: Glucose, Whole Blood 340 mg/dL (60-115)
--- NOTE | 2023-11-07 13:05 | MHC.CM.PN ---
Continued search for LTC bed. 3 facilites are reviewing: [facility] and [facility]: requested additional information from the guardian [facility]: university relations director visited w/ patient today, awaiting decision
[2023-11-07 15:55] VITALS: BP 124/62; PULSE 88; RESP 12; TEMP 36.1; O2SAT 97
[2023-11-07 16:40] LABS: Glucose, Whole Blood 253 mg/dL (60-115)
[2023-11-07 19:45] VITALS: BP 146/73; PULSE 80; RESP 18; TEMP 36.3; O2SAT 97
[2023-11-07 19:47] LABS: Glucose, Whole Blood 346 mg/dL (60-115)
[2023-11-07] MEDS: Insulin Glargine,Hum.rec.anlog 100 UNIT/ML 10 ML VIAL 32 UNIT SUBCUT (21:03)
[2023-11-07] MEDS: QUEtiapine Fumarate 50 MG TABLET PO (21:03)
[2023-11-08] MEDS: valACYclovir HCL 1,000 MG TABLET 1000 MG PO ×3 (00:26→16:37)
[2023-11-08 03:42] VITALS: BP 101/55; PULSE 73; RESP 18; TEMP 36.4; O2SAT 98
[2023-11-08 06:20] LABS: Creatinine Clr Calc Pharmacy 88.6; Estimated Glomerular Filt Rate > 60
[2023-11-08 06:54] VITALS: BP 148/78; PULSE 76; RESP 16; TEMP 36; O2SAT 96
[2023-11-08 07:06] LABS: Glucose, Whole Blood 223 mg/dL (60-115)
[2023-11-08] MEDS: Insulin Lispro 100 UNIT/ML 3 ML VIAL SUBCUT ×4 (07:41→20:18)
[2023-11-08] MEDS: Escitalopram Oxalate 10 MG TABLET PO (07:41)
[2023-11-08] MEDS: metFORMIN HCl 1,000 MG TABLET 1000 MG PO ×2 (07:41→16:37)
[2023-11-08] MEDS: Finasteride 5 MG TABLET PO (07:41)
[2023-11-08] MEDS: Atorvastatin Calcium 20 MG TABLET PO (07:41)
[2023-11-08] MEDS: predniSONE 20 MG TABLET 40 MG PO ×2 (07:41→16:37)
[2023-11-08] MEDS: Enoxaparin Sodium 40 MG/0.4 ML SYRINGE SUBCUT (09:36)
[2023-11-08 11:08] LABS: Glucose, Whole Blood 301 mg/dL (60-115)
--- NOTE | 2023-11-08 11:52 | P.PNIM_ITS ---
Subjective Subjective Date of Service: 11/08/23 Interval History: Ear pain improved. Lesions crusted Review of Systems Denies chest pain Denies shortness of breath Denies nausea vomiting diarrhea Denies fever chills Physical Exam 2 Vital Signs: Vital Signs: Last Vital Signs Temp 96.8 F 11/08/23 06:54 Pulse 76 11/08/23 06:54 Resp 16 11/08/23 06:54 BP 148/78 H 11/08/23 06:54 Pulse Ox 96 11/08/23 06:54 O2 Del Method Room Air 11/08/23 06:54 O2 Flow Rate 97 10/21/23 03:28 BMI result Body Mass Index 24.0 Const: Other: Awake alert confused no acute distress Resp: Other: Clear to auscultation bilaterally no rales rhonchi or wheezes Cardio: Other: No S4; positive S1-S2; no S3 murmurs rubs or gallops GI: Other: Soft nontender nondistended bowel sounds Extrem: Other: No edema bilaterally Objective Data Active Medications Acetaminophen (Acetaminophen 325 Mg Tablet) 650 mg PO Q6H PRN PRN Reason: Pain, Mild (Pain Scale 1-3) Last Admin: 09/15/23 11:48 Dose: 650 mg Documented By: DIMAS Atorvastatin Calcium (Atorvastatin Calcium 20 Mg Tablet) 20 mg PO DAILY [facility] Last Admin: 11/08/23 07:41 Dose: 20 mg Documented By: PREETHI Enoxaparin Sodium (Enoxaparin Sodium 40 Mg/0.4 Ml Syringe) 40 mg SUBCUT Q24H [facility] Last Admin: 11/08/23 09:36 Dose: 40 mg Documented By: PREETHI Escitalopram Oxalate (Escitalopram Oxalate 10 Mg Tablet) 10 mg PO DAILY [facility] Last Admin: 11/08/23 07:41 Dose: 10 mg Documented By: PREETHI Finasteride (Finasteride 5 Mg Tablet) 5 mg PO DAILY [facility] Last Admin: 11/08/23 07:41 Dose: 5 mg Documented By: PREETHI Glucose (Glucose Gel 15 Gm Gel..Gram.) 15 gm PO Q15M PRN; Protocol PRN Reason: per Hypoglycemia Standing Ord. Guaifenesin/Dextromethorphan (Guaifenesin Dm 100/10/5 Ml 5 Ml Syrup) 10 ml PO Q6H PRN PRN Reason: cough Dextrose (D10) 250 mls @ 750 mls/hr IV Q15M PRN PRN Reason: per Hypoglycemia Standing Ord. Insulin Glargine (Insulin Glargine,Hum.Rec.Anlog 100 Unit/Ml 10 Ml Vial) 32 unit SUBCUT BEDTIME [facility] Last Admin: 11/07/23 21:03 Dose: 32 unit Documented By: LIGIA Insulin Human Lispro (Insulin Lispro 100 Unit/Ml 3 Ml Vial) 0 unit SUBCUT QIDACHS [facility]; Protocol Last Admin: 11/08/23 11:38 Dose: 14 unit Documented By: PREETHI Metformin HCl (Metformin Hcl 1,000 Mg Tablet) 1,000 mg PO BIDWM [facility] Last Admin: 11/08/23 07:41 Dose: 1,000 mg Documented By: PREETHI Ondansetron HCl (Ondansetron Hcl 4 Mg/2 Ml Vial) 4 mg IVPUSH Q8H PRN PRN Reason: Nausea and Vomiting Prednisone (Prednisone 20 Mg Tablet) 40 mg PO BIDWM [facility] Stop: 11/08/23 17:01 Last Admin: 11/08/23 07:41 Dose: 40 mg Documented By: PREETHI Quetiapine Fumarate (Quetiapine Fumarate 50 Mg Tablet) 50 mg PO BEDTIME [facility] Last Admin: 11/07/23 21:03 Dose: 50 mg Documented By: LIGIA Valacyclovir HCl (Valacyclovir Hcl 1,000 Mg Tablet) 1,000 mg PO Q8H [facility] Stop: 11/14/23 01:16 Last Admin: 11/08/23 07:41 Dose: 1,000 mg Documented By: PREETHI Labs 10/11/23 08:02 11/08/23 05:35 Labs: Laboratory Results - last 24 hr 11/07/23 11/07/23 11/08/23 16:33 19:22 05:35 Hold Purple Top SEE NOTE Estim Creat Clear Calc 88.6 Estimated GFR > 60 POC Glucose 253 H 346 H 11/08/23 11/08/23 06:56 11:04 Hold Purple Top Estim Creat Clear Calc Estimated GFR POC Glucose 223 H 301 H Assessment and Plan (1) Major neurocognitive disorder due to another medical condition: Status: Acute Plan 73-year-old man presented to the ER on 07/26/2023 initially with suicide ideation but then denied. Patient found to require guardianship, was found to have no competency. Court date for guardianship is pending inpatient will be admitted. 1. Major neurocognitive disorder due to another medical condition -History of dementia -await forthcoming data from guardian 2. Herpes zoster -lesions crusted; pain improved -complete valacyclovir/prednisone as ordered 3.Diabetes mellitus type 2 -acceptable control on current therapies -lispro correctional scale -adjust as indicated Heparin Full code Patient admitted for guardianship court date August 15. No capacity per psychiatry Quality Stroke Does the patient have a stroke diagnosis?: No VTE Prior VTE?: No VTE Risk Level:: Medical - moderate - high VTE Device Contraindication: Treatment Not Tolerated VTE Drug Contraindication: N/A - Med Ordered
[2023-11-08 15:30] VITALS: BP 126/63; PULSE 86; RESP 16; TEMP 36.3; O2SAT 95
[2023-11-08 16:23] LABS: Glucose, Whole Blood 263 mg/dL (60-115)
[2023-11-08 19:53] LABS: Glucose, Whole Blood 287 mg/dL (60-115)
[2023-11-08 20:00] VITALS: BP 130/63; PULSE 82; RESP 18; TEMP 36.4; O2SAT 97
[2023-11-08] MEDS: QUEtiapine Fumarate 50 MG TABLET PO (20:18)
[2023-11-08] MEDS: Insulin Glargine,Hum.rec.anlog 100 UNIT/ML 10 ML VIAL 32 UNIT SUBCUT (20:18)
[2023-11-09] MEDS: valACYclovir HCL 1,000 MG TABLET 1000 MG PO ×3 (01:17→16:52)
[2023-11-09 03:17] VITALS: BP 127/66; PULSE 75; RESP 18; TEMP 35.9; O2SAT 97
[2023-11-09 07:05] VITALS: BP 143/80; PULSE 75; RESP 17; TEMP 36.1; O2SAT 97
[2023-11-09 07:11] LABS: Glucose, Whole Blood 204 mg/dL (60-115)
[2023-11-09] MEDS: Atorvastatin Calcium 20 MG TABLET PO (07:32)
[2023-11-09] MEDS: Escitalopram Oxalate 10 MG TABLET PO (07:32)
[2023-11-09] MEDS: Finasteride 5 MG TABLET PO (07:32)
[2023-11-09] MEDS: metFORMIN HCl 1,000 MG TABLET 1000 MG PO ×2 (07:32→16:52)
[2023-11-09] MEDS: Insulin Lispro 100 UNIT/ML 3 ML VIAL SUBCUT ×4 (07:32→21:14)
[2023-11-09] MEDS: Enoxaparin Sodium 40 MG/0.4 ML SYRINGE SUBCUT (10:23)
[2023-11-09 11:02] LABS: Glucose, Whole Blood 232 mg/dL (60-115)
--- NOTE | 2023-11-09 12:02 | P.PNIM_ITS ---
Subjective Subjective Date of Service: 11/09/23 Interval History: No acute issues overnight. Behavior at baseline; no issues Review of Systems Denies chest pain Denies shortness of breath Denies nausea vomiting diarrhea Denies fever chills Physical Exam 2 Vital Signs: Vital Signs: Last Vital Signs Temp 97 F 11/09/23 07:05 Pulse 75 11/09/23 07:05 Resp 17 11/09/23 07:05 BP 143/80 H 11/09/23 07:05 Pulse Ox 97 11/09/23 07:05 O2 Del Method Room Air 11/09/23 07:05 O2 Flow Rate 97 10/21/23 03:28 BMI result Body Mass Index 24.0 Const: Other: Awake alert confused no acute distress Resp: Other: Clear to auscultation bilaterally no rales rhonchi or wheezes Cardio: Other: No S4; positive S1-S2; no S3 murmurs rubs or gallops GI: Other: Soft nontender nondistended bowel sounds Extrem: Other: No edema bilaterally Objective Data Active Medications Acetaminophen (Acetaminophen 325 Mg Tablet) 650 mg PO Q6H PRN PRN Reason: Pain, Mild (Pain Scale 1-3) Last Admin: 09/15/23 11:48 Dose: 650 mg Documented By: DIMAS Atorvastatin Calcium (Atorvastatin Calcium 20 Mg Tablet) 20 mg PO DAILY [facility] Last Admin: 11/09/23 07:32 Dose: 20 mg Documented By: PREETHI Enoxaparin Sodium (Enoxaparin Sodium 40 Mg/0.4 Ml Syringe) 40 mg SUBCUT Q24H [facility] Last Admin: 11/09/23 10:23 Dose: 40 mg Documented By: PREETHI Escitalopram Oxalate (Escitalopram Oxalate 10 Mg Tablet) 10 mg PO DAILY [facility] Last Admin: 11/09/23 07:32 Dose: 10 mg Documented By: PREETHI Finasteride (Finasteride 5 Mg Tablet) 5 mg PO DAILY [facility] Last Admin: 11/09/23 07:32 Dose: 5 mg Documented By: PREETHI Glucose (Glucose Gel 15 Gm Gel..Gram.) 15 gm PO Q15M PRN; Protocol PRN Reason: per Hypoglycemia Standing Ord. Guaifenesin/Dextromethorphan (Guaifenesin Dm 100/10/5 Ml 5 Ml Syrup) 10 ml PO Q6H PRN PRN Reason: cough Dextrose (D10) 250 mls @ 750 mls/hr IV Q15M PRN PRN Reason: per Hypoglycemia Standing Ord. Insulin Glargine (Insulin Glargine,Hum.Rec.Anlog 100 Unit/Ml 10 Ml Vial) 32 unit SUBCUT BEDTIME [facility] Last Admin: 11/08/23 20:18 Dose: 32 unit Documented By: LIGIA Insulin Human Lispro (Insulin Lispro 100 Unit/Ml 3 Ml Vial) 0 unit SUBCUT QIDACHS [facility]; Protocol Last Admin: 11/09/23 11:55 Dose: 7 unit Documented By: PREETHI Metformin HCl (Metformin Hcl 1,000 Mg Tablet) 1,000 mg PO BIDWM [facility] Last Admin: 11/09/23 07:32 Dose: 1,000 mg Documented By: PREETHI Ondansetron HCl (Ondansetron Hcl 4 Mg/2 Ml Vial) 4 mg IVPUSH Q8H PRN PRN Reason: Nausea and Vomiting Quetiapine Fumarate (Quetiapine Fumarate 50 Mg Tablet) 50 mg PO BEDTIME [facility] Last Admin: 11/08/23 20:18 Dose: 50 mg Documented By: LIGIA Valacyclovir HCl (Valacyclovir Hcl 1,000 Mg Tablet) 1,000 mg PO Q8H [facility] Stop: 11/14/23 01:16 Last Admin: 11/09/23 07:32 Dose: 1,000 mg Documented By: PREETHI Labs 10/11/23 08:02 11/08/23 05:35 Labs: Laboratory Results - last 24 hr 11/08/23 11/08/23 11/09/23 16:16 19:28 07:08 POC Glucose 263 H 287 H 204 H 11/09/23 10:58 POC Glucose 232 H Assessment and Plan (1) Major neurocognitive disorder due to another medical condition: Status: Acute Plan 73-year-old man presented to the ER on 07/26/2023 initially with suicide ideation but then denied. Patient found to require guardianship, was found to have no competency. Court date for guardianship is pending inpatient will be admitted. 1. Major neurocognitive disorder due to another medical condition -History of dementia -await forthcoming data from guardian 2. Herpes zoster -lesions crusted; pain improved -complete valacyclovir/prednisone as ordered -DC precautions 3.Diabetes mellitus type 2 -acceptable control on current therapies -lispro correctional scale -adjust as indicated Heparin Full code Patient admitted for guardianship court date August 15. No capacity per psychiatry Quality Stroke Does the patient have a stroke diagnosis?: No VTE Prior VTE?: No VTE Risk Level:: Medical - moderate - high VTE Device Contraindication: Treatment Not Tolerated VTE Drug Contraindication: N/A - Med Ordered
[2023-11-09 15:34] VITALS: BP 129/66; PULSE 74; RESP 16; TEMP 36.5; O2SAT 96
[2023-11-09 16:24] LABS: Glucose, Whole Blood 176 mg/dL (60-115)
[2023-11-09 19:49] VITALS: BP 129/66; PULSE 76; RESP 16; TEMP 36.2; O2SAT 97
[2023-11-09 20:44] LABS: Glucose, Whole Blood 260 mg/dL (60-115)
[2023-11-09] MEDS: Insulin Glargine,Hum.rec.anlog 100 UNIT/ML 10 ML VIAL 32 UNIT SUBCUT (21:14)
[2023-11-09] MEDS: QUEtiapine Fumarate 50 MG TABLET PO (21:14)
[2023-11-10] MEDS: valACYclovir HCL 1,000 MG TABLET 1000 MG PO ×3 (01:35→17:37)
[2023-11-10 03:35] VITALS: BP 117/56; PULSE 74; RESP 16; TEMP 36.2; O2SAT 95
[2023-11-10 07:07] VITALS: BP 127/66; PULSE 64; RESP 17; TEMP 36.6; O2SAT 95
[2023-11-10 07:17] LABS: Glucose, Whole Blood 147 mg/dL (60-115)
[2023-11-10] MEDS: Finasteride 5 MG TABLET PO (07:50)
[2023-11-10] MEDS: Atorvastatin Calcium 20 MG TABLET PO (07:51)
[2023-11-10] MEDS: Escitalopram Oxalate 10 MG TABLET PO (07:51)
[2023-11-10] MEDS: metFORMIN HCl 1,000 MG TABLET 1000 MG PO ×2 (07:51→17:37)
[2023-11-10] MEDS: Insulin Lispro 100 UNIT/ML 3 ML VIAL SUBCUT ×4 (07:51→21:23)
[2023-11-10] MEDS: Enoxaparin Sodium 40 MG/0.4 ML SYRINGE SUBCUT (09:20)
[2023-11-10 11:20] LABS: Glucose, Whole Blood 181 mg/dL (60-115)
--- NOTE | 2023-11-10 13:51 | P.PNIM_ITS ---
Subjective Subjective Date of Service: 11/10/23 Interval History: no new c/o no fever Review of Systems as above. Physical Exam 2 Vital Signs: Vital Signs: Last Vital Signs Temp 98 F 11/10/23 07:07 Pulse 64 11/10/23 07:07 Resp 17 11/10/23 07:07 BP 127/66 11/10/23 07:07 Pulse Ox 95 11/10/23 07:07 O2 Del Method Room Air 11/10/23 07:07 O2 Flow Rate 97 10/21/23 03:28 BMI result Body Mass Index 24.0 Appearance: Alert.?awake cvs: rrr, [id number]. res: clear to auscultation ,no rhonchii or wheezing abd: no rebound or guarding ,nt, bs present. ext pulses present , no cyanosis. neuro: moves all ext. Objective Data Active Medications Atorvastatin Calcium (Atorvastatin Calcium 20 Mg Tablet) 20 mg PO DAILY [facility] Last Admin: 11/10/23 07:51 Dose: 20 mg Documented By: SCHUYLEREMA Enoxaparin Sodium (Enoxaparin Sodium 40 Mg/0.4 Ml Syringe) 40 mg SUBCUT Q24H [facility] Last Admin: 11/10/23 09:20 Dose: 40 mg Documented By: SCHUYLEREMA Escitalopram Oxalate (Escitalopram Oxalate 10 Mg Tablet) 10 mg PO DAILY [facility] Last Admin: 11/10/23 07:51 Dose: 10 mg Documented By: SCHUYLEREMA Finasteride (Finasteride 5 Mg Tablet) 5 mg PO DAILY [facility] Last Admin: 11/10/23 07:50 Dose: 5 mg Documented By: SCHUYLEREMA Guaifenesin/Dextromethorphan (Guaifenesin Dm 100/10/5 Ml 5 Ml Syrup) 10 ml PO Q6H PRN PRN Reason: cough Dextrose (D10) 250 mls @ 750 mls/hr IV Q15M PRN PRN Reason: per Hypoglycemia Standing Ord. Insulin Glargine (Insulin Glargine,Hum.Rec.Anlog 100 Unit/Ml 10 Ml Vial) 32 unit SUBCUT BEDTIME [facility] Last Admin: 11/09/23 21:14 Dose: 32 unit Documented By: LIGIA Insulin Human Lispro (Insulin Lispro 100 Unit/Ml 3 Ml Vial) 0 unit SUBCUT QIDACHS [facility]; Protocol Last Admin: 11/10/23 11:52 Dose: 4 unit Documented By: RAFA Metformin HCl (Metformin Hcl 1,000 Mg Tablet) 1,000 mg PO BIDWM [facility] Last Admin: 11/10/23 07:51 Dose: 1,000 mg Documented By: RAFA Quetiapine Fumarate (Quetiapine Fumarate 50 Mg Tablet) 50 mg PO BEDTIME [facility] Last Admin: 11/09/23 21:14 Dose: 50 mg Documented By: LIGIA Valacyclovir HCl (Valacyclovir Hcl 1,000 Mg Tablet) 1,000 mg PO Q8H [facility] Stop: 11/14/23 01:16 Last Admin: 11/10/23 07:51 Dose: 1,000 mg Documented By: RAFA Labs 10/11/23 08:02 11/08/23 05:35 Labs: Laboratory Results - last 24 hr 11/09/23 11/09/23 11/10/23 16:18 20:20 07:14 POC Glucose 176 H 260 H 147 H 11/10/23 11:17 POC Glucose 181 H Assessment and Plan (1) Major neurocognitive disorder due to another medical condition: Status: Acute Plan 73-year-old man presented to the ER on 07/26/2023 initially with suicide ideation but then denied. Patient found to require guardianship, was found to have no competency. Court date for guardianship is pending inpatient will be admitted. 1. Major neurocognitive disorder due to another medical condition -History of dementia -await forthcoming data from guardian 2. Herpes zoster -lesions crusted; pain improved -complete valacyclovir/prednisone as ordered -DC precautions 3.Diabetes mellitus type 2 -acceptable control on current therapies -lispro correctional scale -adjust as indicated Heparin Full code Patient admitted for guardianship court date August 15. No capacity per psychiatry Quality Stroke Does the patient have a stroke diagnosis?: No VTE Prior VTE?: No VTE Risk Level:: Medical - moderate - high VTE Device Contraindication: Treatment Not Tolerated VTE Drug Contraindication: N/A - Med Ordered
[2023-11-10 15:21] VITALS: BP 125/65; PULSE 80; RESP 16; TEMP 36.7; O2SAT 97
[2023-11-10 16:52] LABS: Glucose, Whole Blood 138 mg/dL (60-115)
[2023-11-10 19:20] VITALS: BP 131/65; PULSE 86; RESP 16; TEMP 36.5; O2SAT 96
[2023-11-10 20:26] LABS: Glucose, Whole Blood 230 mg/dL (60-115)
[2023-11-10] MEDS: Insulin Glargine,Hum.rec.anlog 100 UNIT/ML 10 ML VIAL 32 UNIT SUBCUT (21:24)
[2023-11-10] MEDS: QUEtiapine Fumarate 50 MG TABLET PO (21:24)
[2023-11-11] MEDS: valACYclovir HCL 1,000 MG TABLET 1000 MG PO ×3 (00:19→16:31)
[2023-11-11 04:00] VITALS: BP 115/59; PULSE 85; RESP 16; TEMP 36.2; O2SAT 96
[2023-11-11 07:00] VITALS: BP 105/71; PULSE 80; RESP 16; TEMP 36.6; O2SAT 96
[2023-11-11 07:27] LABS: Glucose, Whole Blood 145 mg/dL (60-115)
[2023-11-11] MEDS: Finasteride 5 MG TABLET PO (07:53)
[2023-11-11] MEDS: Escitalopram Oxalate 10 MG TABLET PO (07:53)
[2023-11-11] MEDS: metFORMIN HCl 1,000 MG TABLET 1000 MG PO ×2 (07:53→16:31)
[2023-11-11] MEDS: Atorvastatin Calcium 20 MG TABLET PO (07:53)
[2023-11-11] MEDS: Insulin Lispro 100 UNIT/ML 3 ML VIAL SUBCUT ×4 (07:53→21:30)
--- NOTE | 2023-11-11 10:42 | HO.PM.IMPN ---
Subjective Subjective Date of Service: 11/11/23 Interval History: no new c/o or fever Review of Systems as above. Physical Exam Vital Signs: Vital Signs: Last Vital Signs Temp 97.8 F 11/11/23 07:00 Pulse 80 11/11/23 07:00 Resp 16 11/11/23 07:00 BP 105/71 11/11/23 07:00 Pulse Ox 96 11/11/23 07:00 O2 Del Method Room Air 11/11/23 07:00 O2 Flow Rate 97 10/21/23 03:28 BMI result Body Mass Index 24.0 Appearance: Alert.?awake cvs: rrr, [id number]. res: clear to auscultation ,no rhonchii or wheezing abd: no rebound or guarding ,nt, bs present. ext pulses present , no cyanosis. neuro: moves all ext. Objective Data Active Medications Atorvastatin Calcium (Atorvastatin Calcium 20 Mg Tablet) 20 mg PO DAILY [facility] Last Admin: 11/11/23 07:53 Dose: 20 mg Documented By: TEE Enoxaparin Sodium (Enoxaparin Sodium 40 Mg/0.4 Ml Syringe) 40 mg SUBCUT Q24H [facility] Last Admin: 11/10/23 09:20 Dose: 40 mg Documented By: COTEMA Escitalopram Oxalate (Escitalopram Oxalate 10 Mg Tablet) 10 mg PO DAILY [facility] Last Admin: 11/11/23 07:53 Dose: 10 mg Documented By: TEE Finasteride (Finasteride 5 Mg Tablet) 5 mg PO DAILY [facility] Last Admin: 11/11/23 07:53 Dose: 5 mg Documented By: TEE Guaifenesin/Dextromethorphan (Guaifenesin Dm 100/10/5 Ml 5 Ml Syrup) 10 ml PO Q6H PRN PRN Reason: cough Dextrose (D10) 250 mls @ 750 mls/hr IV Q15M PRN PRN Reason: per Hypoglycemia Standing Ord. Insulin Glargine (Insulin Glargine,Hum.Rec.Anlog 100 Unit/Ml 10 Ml Vial) 32 unit SUBCUT BEDTIME [facility] Last Admin: 11/10/23 21:24 Dose: 32 unit Documented By: ENEDINA Insulin Human Lispro (Insulin Lispro 100 Unit/Ml 3 Ml Vial) 0 unit SUBCUT QIDACHS [facility]; Protocol Last Admin: 11/11/23 07:53 Dose: 2 unit Documented By: TEE Metformin HCl (Metformin Hcl 1,000 Mg Tablet) 1,000 mg PO BIDWM [facility] Last Admin: 11/11/23 07:53 Dose: 1,000 mg Documented By: TEE Quetiapine Fumarate (Quetiapine Fumarate 50 Mg Tablet) 50 mg PO BEDTIME [facility] Last Admin: 11/10/23 21:24 Dose: 50 mg Documented By: ENEDINA Valacyclovir HCl (Valacyclovir Hcl 1,000 Mg Tablet) 1,000 mg PO Q8H [facility] Stop: 11/14/23 01:16 Last Admin: 11/11/23 07:53 Dose: 1,000 mg Documented By: TEE Labs 10/11/23 08:02 11/08/23 05:35 Labs: Laboratory Results - last 24 hr 11/10/23 11/10/23 11/10/23 11:17 16:44 20:16 POC Glucose 181 H 138 H 230 H 11/11/23 07:04 POC Glucose 145 H Assessment and Plan (1) Major neurocognitive disorder due to another medical condition: Status: Acute Plan 73-year-old man presented to the ER on 07/26/2023 initially with suicide ideation but then denied. Patient found to require guardianship, was found to have no competency. Court date for guardianship is pending inpatient will be admitted. 1. Major neurocognitive disorder due to another medical condition -History of dementia -await forthcoming data from guardian 2. Herpes zoster -lesions crusted; pain improved -complete valacyclovir/prednisone as ordered -DC precautions 3.Diabetes mellitus type 2 -acceptable control on current therapies -lispro correctional scale -adjust as indicated Heparin Full code Patient admitted for guardianship court date August 15. No capacity per psychiatry Quality Stroke Does the patient have a stroke diagnosis?: No VTE Prior VTE?: No VTE Risk Level:: Medical - moderate - high VTE Device Contraindication: Treatment Not Tolerated VTE Drug Contraindication: N/A - Med Ordered
[2023-11-11] MEDS: Enoxaparin Sodium 40 MG/0.4 ML SYRINGE SUBCUT (11:05)
[2023-11-11 11:34] LABS: Glucose, Whole Blood 228 mg/dL (60-115)
--- NOTE | 2023-11-11 11:50 | MHC.CM.PN ---
[facility], [facility] and [facility] continue to follow. CM reached out to guardian's office. Per church secretary, guardian unable to open new bank account yesterday and plans to do this tomorrow. Continues to communicate w/ all 3 facilities. No preference, but needs new bank account in order to pay facilities. Is aware plan is to dc by end of week. CM will continue to follow.
[2023-11-11 16:00] VITALS: BP 119/59; PULSE 80; RESP 18; TEMP 36.8; O2SAT 97
[2023-11-11 16:24] LABS: Glucose, Whole Blood 187 mg/dL (60-115)
[2023-11-11 19:30] VITALS: BP 122/58; PULSE 79; RESP 16; TEMP 36.4; O2SAT 96
[2023-11-11 20:33] LABS: Glucose, Whole Blood 247 mg/dL (60-115)
[2023-11-11] MEDS: Insulin Glargine,Hum.rec.anlog 100 UNIT/ML 10 ML VIAL 32 UNIT SUBCUT (21:29)
[2023-11-12] MEDS: valACYclovir HCL 1,000 MG TABLET 1000 MG PO ×2 (00:21→07:59)
[2023-11-12 07:25] VITALS: BP 117/59; PULSE 77; RESP 16; TEMP 36.2; O2SAT 96
[2023-11-12 07:44] LABS: Glucose, Whole Blood 166 mg/dL (60-115)
[2023-11-12] MEDS: Insulin Lispro 100 UNIT/ML 3 ML VIAL SUBCUT ×2 (07:59→11:14)
[2023-11-12] MEDS: Atorvastatin Calcium 20 MG TABLET PO (07:59)
[2023-11-12] MEDS: Escitalopram Oxalate 10 MG TABLET PO (07:59)
[2023-11-12] MEDS: Finasteride 5 MG TABLET PO (07:59)
[2023-11-12] MEDS: Enoxaparin Sodium 40 MG/0.4 ML SYRINGE SUBCUT (09:27)
[2023-11-12 11:12] LABS: Glucose, Whole Blood 241 mg/dL (60-115)
--- NOTE | 2023-11-12 11:55 | P.PNIM_ITS ---
Subjective Subjective Date of Service: 11/12/23 Interval History: no new c/o or fever Review of Systems as above. Physical Exam 2 Vital Signs: Vital Signs: Last Vital Signs Temp 97.2 F 11/12/23 07:25 Pulse 77 11/12/23 07:25 Resp 16 11/12/23 07:25 BP 117/59 L 11/12/23 07:25 Pulse Ox 96 11/12/23 07:25 O2 Del Method Room Air 11/12/23 07:25 O2 Flow Rate 97 10/21/23 03:28 BMI result Body Mass Index 24.0 Appearance: Alert.?awake cvs: rrr, [id number]. res: clear to auscultation ,no rhonchii or wheezing abd: no rebound or guarding ,nt, bs present. ext pulses present , no cyanosis. neuro: moves all ext. Objective Data Active Medications Atorvastatin Calcium (Atorvastatin Calcium 20 Mg Tablet) 20 mg PO DAILY [facility] Last Admin: 11/12/23 07:59 Dose: 20 mg Documented By: ISAEL Enoxaparin Sodium (Enoxaparin Sodium 40 Mg/0.4 Ml Syringe) 40 mg SUBCUT Q24H [facility] Last Admin: 11/12/23 09:27 Dose: 40 mg Documented By: ISAEL Escitalopram Oxalate (Escitalopram Oxalate 10 Mg Tablet) 10 mg PO DAILY [facility] Last Admin: 11/12/23 07:59 Dose: 10 mg Documented By: ISAEL Finasteride (Finasteride 5 Mg Tablet) 5 mg PO DAILY [facility] Last Admin: 11/12/23 07:59 Dose: 5 mg Documented By: ISAEL Guaifenesin/Dextromethorphan (Guaifenesin Dm 100/10/5 Ml 5 Ml Syrup) 10 ml PO Q6H PRN PRN Reason: cough Dextrose (D10) 250 mls @ 750 mls/hr IV Q15M PRN PRN Reason: per Hypoglycemia Standing Ord. Insulin Glargine (Insulin Glargine,Hum.Rec.Anlog 100 Unit/Ml 10 Ml Vial) 32 unit SUBCUT BEDTIME [facility] Last Admin: 11/11/23 21:29 Dose: 32 unit Documented By: MALGORZATA Insulin Human Lispro (Insulin Lispro 100 Unit/Ml 3 Ml Vial) 0 unit SUBCUT QIDACHS [facility]; Protocol Last Admin: 11/12/23 11:14 Dose: 7 unit Documented By: ISAEL Valacyclovir HCl (Valacyclovir Hcl 1,000 Mg Tablet) 1,000 mg PO Q8H [facility] Stop: 11/14/23 01:16 Last Admin: 11/12/23 07:59 Dose: 1,000 mg Documented By: ISAEL Labs 10/11/23 08:02 11/08/23 05:35 Labs: Laboratory Results - last 24 hr 11/11/23 11/11/23 11/12/23 16:20 20:16 07:28 POC Glucose 187 H 247 H 166 H 11/12/23 11:08 POC Glucose 241 H Assessment and Plan (1) Major neurocognitive disorder due to another medical condition: Status: Acute Plan 73-year-old man presented to the ER on 07/26/2023 initially with suicide ideation but then denied. Patient found to require guardianship, was found to have no competency. Court date for guardianship is pending inpatient will be admitted. 1. Major neurocognitive disorder due to another medical condition -History of dementia -await forthcoming data from guardian 2. Herpes zoster -lesions crusted; pain improved complete valacyclovir, prednisone as ordered -DC precautions 3.Diabetes mellitus type 2 -acceptable control on current therapies -lispro correctional scale -adjust as indicated Heparin Full code Patient admitted for guardianship court date August 15. No capacity per psychiatry Quality Stroke Does the patient have a stroke diagnosis?: No VTE Prior VTE?: No VTE Risk Level:: Medical - moderate - high VTE Device Contraindication: Treatment Not Tolerated VTE Drug Contraindication: N/A - Med Ordered
[2023-11-12] MEDS: predniSONE 20 MG TABLET 40 MG PO (12:08)
--- NOTE | 2023-11-12 12:47 | MHC.CM.PN ---
Patient accepted to [facility] for LTC today. BLS transportation scheduled for 3pm. RN and patient aware. IMM delivered to guardian.
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
--- NOTE | 2023-11-12 14:18 | PC.NURSE ---
report given to facility.
== END 2023-11-12 15:31 | disposition skilled nursing facility (03) | DRG 922 ==
LOC: HO.ED 08-01 10:16 → HO.EDOVER 08-12 12:23 → HO.S3 08-12 18:43 → HO.IMC 09-09 17:35 → HO.S3 09-21 15:08
PROVIDERS: Family Medicine; Hospitalist; Internal Medicine; Physician Assistant; Physician Assistant Medical; Student in an Organized Health Care Education/Training Program; Admitting Provider Nurse Practitioner Acute Care; Emergency Provider Emergency Medicine; PCP Internal Medicine; Visit Provider Internal Medicine
DX: T76.11XA Adult physical abuse, suspected, initial encounter (principal); U07.1 COVID-19; R45.851 Suicidal ideations; B02.8 Zoster with other complications; H54.8 Legal blindness, as defined in USA; E11.9 Type 2 diabetes mellitus without complications; F03.90 Unspecified dementia, unspecified severity, without behavioral disturbance, psychotic disturbance, mood disturbance, and anxiety; Z75.1 Person awaiting admission to adequate facility elsewhere; E78.5 Hyperlipidemia, unspecified; N40.0 Benign prostatic hyperplasia without lower urinary tract symptoms; F41.9 Anxiety disorder, unspecified; R62.7 Adult failure to thrive; Z68.24 Body mass index [BMI] 24.0-24.9, adult; Z87.891 Personal history of nicotine dependence; Z79.4 Long term (current) use of insulin; Z79.84 Long term (current) use of oral hypoglycemic drugs; Z79.899 Other long term (current) drug therapy
CPT/HCPCS: 0241U; 36415; 70450; 71046; 80048; 80053; 80061; 80307; 81001; 81003; 82565; 82607; 82746; 82947; 83036; 83605; 84145; 84443; 85025; 85027; 86140; 87040; 87635; 94640; 97161; 99285; J0248; J0696; J1644; J1650

== ENCOUNTER → 2023-07-26 14:25 | Outpatient (BNV) | payer OTHER, SELFPAY | PROVIDERS: Emergency Provider Emergency Medicine; PCP Internal Medicine; Visit Provider Social Worker | DX: F03.90 Unspecified dementia, unspecified severity, without behavioral disturbance, psychotic disturbance, mood disturbance, and anxiety (principal) | CPT/HCPCS: 99285 ==

== ENCOUNTER → 2023-08-12 12:18 | Outpatient (BNV) | payer MEDICARE, SELFPAY | PROVIDERS: Admitting Provider Nurse Practitioner Acute Care; Emergency Provider Emergency Medicine; PCP Internal Medicine; Visit Provider Nurse Practitioner Acute Care | DX: F03.90 Unspecified dementia, unspecified severity, without behavioral disturbance, psychotic disturbance, mood disturbance, and anxiety (principal); Z75.1 Person awaiting admission to adequate facility elsewhere | CPT/HCPCS: 99222; 99231; 99232; 99233; 99239; 99499 ==

== ENCOUNTER 2024-09-24 11:26 | Outpatient (AMB) | payer MEDICARE, MEDICAID, SELFPAY ==
--- NOTE | 2024-09-24 11:27 | A.OFFVIS_ITS ---
Intake Visit Reasons: follow up Intake Note: Pt presents to the office today for a follow up. PVR:41mL Allergies No Known Allergies Allergy (Verified 09/24/24 11:27) HPI Comments Details: Shari pleasant male. [place] speaker. He is a patient Dr. Burden. He is seen for the following urologic conditions - prostate cancer - lower urinary tract symptoms [place] translation provided by qualified medical sales Significant deterioration since last visit No longer candidate for external beam radiation Will manage with intermittent hormone therapy Plan GnRH Check PSA Prostate Cancer - 02/16 - Grade Group 3, multi core PSA 4.99 GnRH 04/02/23 Diagnosis of 02/16 Dr. Eid PSA at diagnosis 5.0 on finasteride pT1c TRUS 20gm Rl score:? 7 (4+3) (right base medial), 7 (3+4) (left mid medial and lateral, left apex lateral, right mid medial and lateral, right apex medial), 6 (3+3) (left base lateral, left apex medial, right base lateral) Tumor quantitation: Number cores positive:10 Total number of cores: 14 % of tissue involved: 40% (Cores 15-80%) Periprostatic fat inv.:Not identified Seminal vesicle inv.:Not identified Perineural inv.: Present Lymphovascular invasion: Not identified MRI: Small prostate, motion artifact, heterogeneous. No evidence of ness disease Bone Scan: Multifocal tracer avid disease involving the left thoracic cage suspicious for metastatic disease Elevated PSA PSA 11/16 7.44, 05/18 4.3, 01/17 5.0 Background diabetes PFSH Medical History Legally blind Schizoaffective disorder Dementia Rib fracture Retinitis pigmentosa Dementia Depression BPH (benign prostatic hyperplasia) Goiter Vitamin D deficiency Schizophrenia Legally blind HLD (hyperlipidemia) HTN (hypertension) T2DM (type 2 diabetes mellitus) Surgical History History of amputation of finger Family History Father Blindness Mother No problems noted. Social History Household Members: Caregiver Housing: House Alcohol intake: former Comment: sitter at bedside Patient Tobacco Use Status: Former Tobacco user Cigarette Packs Per Day: 3 Years Smoked: 40 Advance Directives Date on File: 08/12/23 service: No Review of Systems Const Denies chills and Denies fever(s) Card Reports no additional complaints and Denies syncope Resp Denies cough GI Denies abdominal pain and Denies heartburn Reports as per HPI and Denies change in libido Neuro Denies syncope Psych Denies change in libido Endo Denies change in libido Physical Exam Const General: cooperative, healthy appearing, comfortable and no acute distress Orientation/consciousness: patient oriented x3 HEENT Face and sinus: Yes normal facial exam Mouth: moist mucous membranes Neck Neck: Yes normal visual inspection, Yes full ROM and Yes trachea midline Chest Chest palpation & inspection: normal inspection of the chest Resp Effort & Inspection: normal respiratory effort, able to speak in complete sentences and no respiratory distress GI Inspection: Yes normal to inspection Back/Spine/Pelvis Cervical Spine: normal cervical lordosis Thoracic/Lumbar Spine: thoracic and lumbar spine normal to inspection Skin General skin exam: no rashes or lesions noted Neuro General: patient oriented x3, gait normal, tone normal and moves all extremities Extrem General: Yes normal to inspection and Yes capillary refill normal Office Procedures Post Void Residual Post Residual Void Post Void Residual (PVR): 41 [id number] Void Residual by ultrasound Assessment & Plan Assessment & Plan (1) Prostate cancer: Code(s): C61 - Malignant neoplasm of prostate Category: Medical Plan PSA today Two-week follow-up GnRH Orders: Orders AMB Post Void Residual by ultrasound Today N32.0 - Bladder-neck obstruction PSA,Total (Free>4and<10) Today C61 - Malignant neoplasm of prostate Patient Instructions: This note is constructed using voice recognition software. While every effort has been made to ensure accuracy hemodialysis charge nurse errors may have been included. Imaging studies, laboratory and physical exam results were discussed and reviewed in detail. No major barriers to patient understanding were identified. An opportunity to ask questions regarding the treatment plan was provided. All questions were answered. The patient expressed understanding and agreement with the above treatment plan. The patient is aware they should contact our office by phone for worsening of their current condition or the appearance of new urologic symptoms. Compliance is encouraged with any medications and followup testing that is ordered. It is a privilege to participate in the urologic care of your patient. If you have any questions or concerns regarding treatment for the above conditions, or other urologic issues, please do not hesitate to contact me. The office telephone contact is [phone]. Sincerely, Dr Kike Eid MD, [facility] - Urology Compassionate Specialist Care for the Genitourinary System Coding Level of Care Code Est Pt Level 4 (48054) Complex EM visit Add On G2211 Diagnoses Prostate cancer C61 CPT Codes Post Residual Void - PVR CPT Code: 02096-Xuia Void Residual by ultrasound ([id number])
--- OUTSIDE RECORDS SUMMARY | 2024-09-24 13:39 | XMS_ITS | Clinical Summary ---
Author Organization [address] [facility] Address [address] [place] [address] Phone Care Team Providers Care Midwife Practitioner Name Role Phone Nikki Moser MD Primary Care Provider [phone] Encounters Date Type Department Care Team Description 09/22/2024 Lab Requisition [facility] Lab [address] [place] [phone] Nikki Moser MD Type 2 diabetes mellitus without complications (CMS/HCC); Essential (primary) hypertension; Schizophrenia, unspecified (CMS/HCC); Unspecified dementia, unspecified severity, without behavioral disturbance, psychotic disturbance, mood disturbance, and anxiety (CMS/HCC); Vitamin D deficiency, unspecified 09/08/2024 Lab Requisition [facility] - Main Lab [address] [place] [phone] Nikki Moser MD Malignant neoplasm of prostate (CMS/HCC) 09/01/2024 Lab Requisition [facility] Lab [address] [place] [phone] Nikki Moser MD Hypothyroidism, unspecified; Type 2 diabetes mellitus without complications (CMS/HCC) from Last 3 Months Social History Tobacco Use Types Packs/Day Years Used Date Smoking Tobacco: Never Assessed Sex and Gender Information Value Date Recorded Sex Assigned at Not on file Legal Sex Male 4:55 AM EST Gender Identity Not on file Sexual Orientation Not on file Plan of Treatment Health Maintenance Due Date Last Done Comments COVID-19 Vaccine (#1) 1955 Diabetes: Annual Foot Exam 1960 Diabetes: Annual Retina Eye Exam 1960 DTaP,Tdap,and Td Vaccines (1 - Tdap) 1969 Pneumococcal Vaccine: 50+ Years (1 of 2 - PCV) 1969 Zoster Vaccines (1 of 2) 1969 Influenza Vaccine (#1) 2024 Abdominal Aortic Aneurysm (AAA) Screen 09/01/2024 Cholesterol Screening (Lipid Panel) 09/01/2024 Colorectal Cancer Screening: Colonoscopy 09/01/2024 Depression Screening 09/01/2024 Diabetes: Annual Urine Albumin-Creatinine Ratio (uACR) 09/01/2024 Falls Risk Assessment 09/01/2024 Hepatitis C Screening 09/01/2024 Medicare Annual Wellness Visit 09/01/2024 Social Influencers of Health Screening 09/01/2024 Diabetes: Blood Sugar Contro l Test (HGBA1C) 03/01/2025 09/01/2024 RSV Immunization Patients 60 + Years Old (1 - 1-dose 75+ series) 2025 Diabetes: Annual GFR (Glomerular Filtration Rate) 09/22/2025 09/22/2024, 09/01/2024 Hypertension/CHF/CAD Annual BMP Blood Test 09/22/2025 09/22/2024, 09/01/2024 HIB Vaccines Aged Out No longer eligi ble based on patient's age to complete this topic HPV Vaccines Aged Out No longer eligi ble based on patient's age to complete this topic Hepatitis A Vaccines Aged Out No long er eligible based on patient's age to complete this topic Hepatitis B Vaccines Aged Out No long er eligible based on patient's age to complete this topic IPV Vaccines Aged Out No longer eligi ble based on patient's age to complete this topic MMR Vaccines Aged Out No longer eligi ble based on patient's age to complete this topic Meningococcal ACWY Vaccine Aged Out N o longer eligible based on patient's age to complete this topic Meningococcal B Vacine Aged Out No lo nger eligible based on patient's age to complete this topic RSV Immunization Patients Under 20 months Aged Out No longer eligible b ased on patient's age to complete this topic Varicella Vaccines Aged Out No longer eligible based on patient's age to complete this topic Procedures Procedure Name Priority Date/Time Associated Diagnosis Comments CBC WITH AUTO DIFFERENTIAL Routine 09/22/2024 5:04 AM EST Type 2 diabetes mellitus without complications (CMS/HCC) Essential (primary) hypertension Schizophrenia, unspecified (CMS/HCC) Unspecified dementia, unspecified severity, without behavioral disturbance, psychotic disturbance, mood disturbance, and anxiety (CMS/HCC) Vitamin D deficiency, unspecified BASIC METABOLIC PANEL Routine 09/22/2024 5:04 AM EST Type 2 diabetes mellitus without complications (CMS/HCC) Essential (primary) hypertension Schizophrenia, unspecified (CMS/HCC) Unspecified dementia, unspecified severity, without behavioral disturbance, psychotic disturbance, mood disturbance, and anxiety (CMS/HCC) Vitamin D deficiency, unspecified CBC AND DIFFERENTIAL Routine 09/22/2024 5:04 AM EST Type 2 diabetes mellitus without complications (CMS/HCC) Essential (primary) hypertension Schizophrenia, unspecified (CMS/HCC) Unspecified dementia, unspecified severity, without behavioral disturbance, psychotic disturbance, mood disturbance, and anxiety (CMS/HCC) Vitamin D deficiency, unspecified PROSTATE SPECIFIC ANTIGEN DIAGNOSTIC Routine 09/08/2024 6:08 AM EST Malignant neoplasm of prostate (CMS/HCC) HEMOGLOBIN A1C Routine 09/01/2024 6:25 AM EST Hypothyroidism, unspecified Type 2 diabetes mellitus without complications (CMS/HCC) THYROID STIMULATING HORMONE Routine 09/01/2024 6:25 AM EST Hypothyroidism, unspecified Type 2 diabetes mellitus without complications (CMS/HCC) COMPREHENSIVE METABOLIC PANEL Routine 09/01/2024 6:25 AM EST Hypothyroidism, unspecified Type 2 diabetes mellitus without complications (CMS/HCC) COMPLETE BLOOD COUNT Routine 09/01/2024 6:25 AM EST Hypothyroidism, unspecified Type 2 diabetes mellitus without complications (CMS/HCC) from Last 3 Months Results * (ABNORMAL) CBC auto differential (09/22/2024 5:04 AM EST) WBC 6.3 4.8 - 10.8 K/[facility] LAB HEMETOLOGY METHOD 09/22/2024 11:45 AM EST [facility] LAB RBC 4.70 4.50 - 5.50 M/[facility] LAB HEMETOLOGY METHOD 09/22/2024 11:[address] [facility] LAB Hemoglobin 13.7 13.5 - 17.5 g/dL LAB HEMETOLOGY METHOD 09/22/2024 11:[address] [facility] LAB Hematocrit 43.4 42.0 - 54.0 % LAB HEMETOLOGY METHOD 09/22/2024 11:[address] [facility] LAB MCV 92.9 79.0 - 98.0 FL LAB HEMETOLOGY METHOD 09/22/2024 11:[address] [facility] LAB MCH 29.3 27.0 - 32.0 pcg LAB HEMETOLOGY METHOD 09/22/2024 11:[address] [facility] LAB MCHC 31.6(L) 32.0 - 37.0 g/dL LAB HEMETOLOGY METHOD 09/22/2024 11:[address] [facility] LAB RDW 12.9 11.0 - 15.0 % LAB HEMETOLOGY METHOD 09/22/2024 11:[address] [facility] LAB Platelets 187 130 - 400 K/mcL LAB HEMETOLOGY METHOD 09/22/2024 11:[address] [facility] LAB MPV 11.0 7.0 - 11.0 FL LAB HEMETOLOGY METHOD 09/22/2024 11:[address] [facility] LAB NRBC 0.0 <1.0 % LAB HEMETOLOGY METHOD 09/22/2024 11:[address] [facility] LAB NRBC Absolute 0.00 <0.10 K/mcL LAB HEMETOLOGY METHOD 09/22/2024 11:[address] [facility] LAB Neutrophils Relative 50.8 % LAB HEMETOLOGY METHOD 09/22/2024 11:[address] [facility] LAB Lymphocytes Relative 37.8 % LAB HEMETOLOGY METHOD 09/22/2024 11:[address] [facility] LAB Monocytes Relative 7.6 % LAB HEMETOLOGY METHOD 09/22/2024 11:[address] [facility] LAB Eosinophils Relative 2.4 % LAB HEMETOLOGY METHOD 09/22/2024 11:[address] [facility] LAB Basophils Relative 1.1 % LAB HEMETOLOGY METHOD 09/22/2024 11:[address] [facility] LAB Immature Granulocytes Relative 0.3 % LAB HEMETOLOGY METHOD 09/22/2024 11:[address] [facility] LAB Neutrophils Absolute 3.20 1.50 - 7.00 K/mcL LAB HEMETOLOGY METHOD 09/22/2024 11:[address] [facility] LAB Lymphocytes Absolute 2.38 1.00 - 5.00 K/mcL LAB HEMETOLOGY METHOD 09/22/2024 11:[address] [facility] LAB Monocytes Absolute 0.48 0.20 - 1.00 K/mcL LAB HEMETOLOGY METHOD 09/22/2024 11:45 AM EST [facility] LAB Eosinophils Absolute 0.15 0.00 - 0.50 K/mcL LAB HEMETOLOGY METHOD 09/22/2024 11:[address] [facility] LAB Basophils Absolute 0.07 0.00 - 0.20 K/mcL LAB HEMETOLOGY METHOD 09/22/2024 11:[address] [facility] LAB Immature Granulocytes Absolute 0.02 0.00 - 0.03 K/mcL LAB HEMETOLOGY METHOD 09/22/2024 11:[address] [facility] LAB Blood Venous blood specimen / Unknown Venipuncture / Unknown 09/22/2024 5:04 AM EST 09/22/2024 9:36 AM EST us Nikki Moser MD LAB BLOOD ORDERABLES Final Resul t [facility] LAB [address] [place] [address], * (ABNORMAL) Basic metabolic panel (09/22/2024 5:04 AM EST) Sodium 139 133 - 145 mmol/L LAB CHEMISTRY METHOD 09/22/2024 10:[address] [facility] LAB Potassium 4.6 3.5 - 5.5 mmol/L LAB CHEMISTRY METHOD 09/22/2024 10:[address] [facility] LAB Chloride 104 96 - 110 mmol/L LAB CHEMISTRY METHOD 09/22/2024 10:[address] [facility] LAB CO2 28 21 - 32 mmol/L LAB CHEMISTRY METHOD 09/22/2024 10:[address] [facility] LAB Anion Gap 7 3 - 11 LAB CHEMISTRY METHOD 09/22/2024 10:[address] [facility] LAB Glucose 179(H) 70 - 100 mg/dL LAB CHEMISTRY METHOD 09/22/2024 10:[address] [facility] LAB BUN 19 5 - 25 mg/dL LAB CHEMISTRY METHOD 09/22/2024 10:[address] [facility] LAB Creatinine 0.87 0.70 - 1.30 mg/dL LAB CHEMISTRY METHOD 09/22/2024 10:[address] [facility] LAB eGFR 91 >=60 mL/min/1. 73m2 LAB CHEMISTRY METHOD 09/22/2024 10:[address] [facility] LAB Comment:Calculation based on the??Chronic Kidney Disease Epidemiology Collaboration (CKD-EPI) equation refit??without adjustment for race. BUN/Creatinine Ratio 21.8 LAB CHEMISTRY METHOD 09/22/2024 10:[address] [facility] LAB Calcium 9.3 8.5 - 10.5 mg/dL LAB CHEMISTRY METHOD 09/22/2024 10:[address] [facility] LAB Blood Venous blood specimen / Unknown Venipuncture / Unknown 09/22/2024 5:04 AM EST 09/22/2024 9:36 AM EST Nikki Moser MD LAB BLOOD ORDERABLES Final Resul t Performing Organization Address City/[facility]/ZIP Co de Phone Number [facility] LAB [address] [place] [address], [place] [phone] * Prostate specific antigen diagnostic (09/08/2024 6:08 AM EST) PSA 1.68 0.00 - 4.00 ng/mL LAB CHEMISTRY METHOD 09/08/2024 1:21 PM EST [facility] LAB Blood Venous blood specimen / Unknown Venipuncture / Unknown 09/08/2024 6:08 AM EST 09/08/2024 11:53 AM EST Narrative [facility] - 09/08/2024 1:21 PM EST The Siemens Advia Sutures Indiaaur Chemiluminescent Immunoassay is used. Results obtained with different assay methods or kits cannot be used interchangeably. Results cannot be interpreted as absolute evidence of the presence or absence of malignant disease. Nikki Moser MD LAB BLOOD ORDERABLES Final Resul t Performing Organization Address [facility]/ZIP Co de Phone Number [facility] LAB [address] [place] [address], [place] [phone] * (ABNORMAL) Complete blood count (09/01/2024 6:25 AM EST) WBC 5.4 4.8 - 10.8 K/mcL LAB HEMETOLOGY METHOD 09/01/2024 10:41 AM EST [facility] LAB RBC 4.80 4.50 - 5.50 M/mcL LAB HEMETOLOGY METHOD 09/01/2024 10:41 AM EST [facility] LAB Hemoglobin 13.8 13.5 - 17.5 g/dL LAB HEMETOLOGY METHOD 09/01/2024 10:41 AM EST [facility] LAB Hematocrit 41.6(L) 42.0 - 54.0 % LAB HEMETOLOGY METHOD 09/01/2024 10:41 AM EST [facility] LAB MCV 87.6 79.0 - 98.0 FL LAB HEMETOLOGY METHOD 09/01/2024 10:41 AM EST [facility] LAB MCH 29.1 27.0 - 32.0 pcg LAB HEMETOLOGY METHOD 09/01/2024 10:41 AM EST [facility] LAB MCHC 33.2 32.0 - 37.0 g/dL LAB HEMETOLOGY METHOD 09/01/2024 10:41 AM EST [facility] LAB RDW 12.9 11.0 - 15.0 % LAB HEMETOLOGY METHOD 09/01/2024 10:[address] [facility] LAB Platelets 196 130 - 400 K/mcL LAB HEMETOLOGY METHOD 09/01/2024 10:[address] [facility] LAB MPV 11.0 7.0 - 11.0 FL LAB HEMETOLOGY METHOD 09/01/2024 10:41 AM EST [facility] LAB NRBC 0.0 <1.0 % LAB HEMETOLOGY METHOD 09/01/2024 10:[address] [facility] LAB NRBC Absolute 0.00 <0.10 K/mcL LAB HEMETOLOGY METHOD 09/01/2024 10:[address] [facility] LAB Blood Venous blood specimen / Unknown Venipuncture / Unknown 09/01/2024 6:25 AM EST 09/01/2024 10:02 AM EST us Nikki Moser MD LAB BLOOD ORDERABLES Final Resul t [facility] LAB [address] [place] [address], * Thyroid stimulating hormone (09/01/2024 6:25 AM EST) TSH 2.71 0.40 - 4.00 mcIU/mL LAB CHEMISTRY METHOD 09/01/2024 11:18 AM EST [facility] LAB Blood Venous blood specimen / Unknown Venipuncture / Unknown 09/01/2024 6:25 AM EST 09/01/2024 10:02 AM EST us Nikki Moser MD LAB BLOOD ORDERABLES Final Resul t Performing Organization Address [facility] Co de Phone Number [facility] LAB [address] [place] [address], [place] [phone] * (ABNORMAL) Hemoglobin A1c (09/01/2024 6:25 AM EST) Hemoglobin A1C 10.2(H) <6.5 % LAB CHEMISTRY METHOD 09/01/2024 7:[address] [facility] LAB Mean Bld Glu Estim. 246 mg/dL LAB CHEMISTRY METHOD 09/01/2024 7:[address] [facility] LAB Blood Venous blood specimen / Unknown Venipuncture / Unknown 09/01/2024 6:25 AM EST 09/01/2024 10:02 AM EST us Nikki Moser MD LAB BLOOD ORDERABLES Final Resul t Performing Organization Address [facility] de Phone Number [facility] LAB [address] [place] [address], [place] [phone] * (ABNORMAL) Comprehensive metabolic panel (09/01/2024 6:25 AM EST) Sodium 139 133 - 145 mmol/L LAB CHEMISTRY METHOD 09/01/2024 11:[address] [facility] LAB Potassium 4.5 3.5 - 5.5 mmol/L LAB CHEMISTRY METHOD 09/01/2024 11:[address] [facility] LAB Comment:Hemolysis present Chloride 105 96 - 110 mmol/L LAB CHEMISTRY METHOD 09/01/2024 11:01 AM EST [facility] LAB CO2 27 21 - 32 mmol/L LAB CHEMISTRY METHOD 09/01/2024 11:[address] [facility] LAB Anion Gap 7 3 - 11 LAB CHEMISTRY METHOD 09/01/2024 11:[address] [facility] LAB Glucose 174(H) 70 - 100 mg/dL LAB CHEMISTRY METHOD 09/01/2024 11:[address] [facility] LAB BUN 14 5 - 25 mg/dL LAB CHEMISTRY METHOD 09/01/2024 11:[address] [facility] LAB Creatinine 0.76 0.70 - 1.30 mg/dL LAB CHEMISTRY METHOD 09/01/2024 11:[address] [facility] LAB eGFR 94 >=60 mL/min/1. 73m2 LAB CHEMISTRY METHOD 09/01/2024 11:[address] [facility] LAB Comment:Calculation based on the??Chronic Kidney Disease Epidemiology Collaboration (CKD-EPI) equation refit??without adjustment for race. BUN/Creatinine Ratio 18.4 LAB CHEMISTRY METHOD 09/01/2024 11:[address] [facility] LAB Calcium 8.8 8.5 - 10.5 mg/dL LAB CHEMISTRY METHOD 09/01/2024 11:[address] [facility] LAB AST (SGOT) 41 10 - 42 unit/L LAB CHEMISTRY METHOD 09/01/2024 11:[address] [facility] LAB Comment:Hemolysis present ALT (SGPT) 50 10 - 60 unit/L LAB CHEMISTRY METHOD 09/01/2024 11:[address] [facility] LAB Alkaline Phosphatase 102 42 - 121 unit/L LAB CHEMISTRY METHOD 09/01/2024 11:[address] [facility] LAB Total Protein 6.4 6.0 - 8.0 g/dL LAB CHEMISTRY METHOD 09/01/2024 11:[address] [facility] LAB Albumin 3.7 3.2 - 5.0 g/dL LAB CHEMISTRY METHOD 09/01/2024 11:[address] [facility] Total Bilirubin 0.4 0.0 - 1.4 mg/dL LAB CHEMISTRY METHOD 09/01/2024 11:01 AM EST [facility] LAB Blood Venous blood specimen / Unknown Venipuncture / Unknown 09/01/2024 6:25 AM EST 09/01/2024 10:02 AM EST us Nikki Moser MD LAB BLOOD ORDERABLES Final Resul t [facility] ([facility]) [facility] LAB [address] [place] [address], [place] [phone] from Last 3 Months Insurance MEDICARE MEDICAID - [place] Care Teams Midwife Practitioner Relationship Specialty Start Date End Date Nikki Moser MD [address] [place] [address] [address] [place] [address] PCP - General Geriatric Medicine 09/01/24
--- OUTSIDE RECORDS SUMMARY | 2024-09-24 13:39 | XMS_ITS | Encounter Summary ---
[facility] Organization [facility] Address [address] [place] [address] Care Team Providers Care Distribution A Class Lineman Name Role Phone Nikki Moser MD Primary Care Provider [phone] Encounter Details Date Type Department Care Team (Late st Contact Info) Description 09/08/2024 Lab Requisition [facility] - Main Lab [address] [facility] [place] [address] Nikki Moser MD [address] [place] [address] Malignant neoplasm of prostate (CMS/HCC) Social History Tobacco Use Types Packs/Day Years Used Date Smoking Tobacco: Never Assessed Sex and Gender Information Value Date Recorded Sex Assigned at Not on file Legal Sex Male 4:55 AM EST Gender Identity Not on file Sexual Orientation Not on file documented as of this encounter Plan of Treatment Not on file documented as of this encounter Procedures Procedure Name Priority Date/Time Associated Diagnosis Comments PROSTATE SPECIFIC ANTIGEN DIAGNOSTIC Routine 09/08/2024 6:08 AM EST Malignant neoplasm of prostate (CMS/HCC) documented in this encounter Results * Prostate specific antigen diagnostic (09/08/2024 6:08 AM EST) PSA 1.68 0.00 - 4.00 ng/mL LAB CHEMISTRY METHOD 09/08/2024 1:21 PM EST [facility] LAB Blood Venous blood specimen / Unknown Venipuncture / Unknown 09/08/2024 6:08 AM EST 09/08/2024 11:53 AM EST Narrative [facility] LAB - 09/08/2024 1:21 PM EST The Siemens Advia Centaur Chemiluminescent Immunoassay is used. Results obtained with different assay methods or kits cannot be used interchangeably. Results cannot be interpreted as absolute evidence of the presence or absence of malignant disease. Nikki Moser MD LAB BLOOD ORDERABLES Final Resul t [facility] ([facility]) [facility] LAB [address] [place] [address], documented in this encounter Visit Diagnoses Diagnosis Malignant neoplasm of prostate (CMS/HCC) Malignant neoplasm of prostate documented in this encounter Care Teams Distribution A Class Lineman Relationship Specialty Start Date End Date Nikki Moser MD [address] [place] [address] [address] [place] [address] PCP - General Geriatric Medicine 09/01/24 documented as of this encounter
--- OUTSIDE RECORDS SUMMARY | 2024-09-24 13:39 | XMS_ITS | Encounter Summary ---
Author Organization [email or web address] Address [address] [place] [address] Care Team Providers Care Coin Box Collector Name Role Phone Nikki Moser MD Primary Care Provider Encounter Details Date Type Department Care Team (Late st Contact Info) Description 09/22/2024 Lab Requisition [facility] - Main Lab [address] [facility] [address] Nikki Moser MD [address] [place] [address] Type 2 diabetes mellitus without complications (CMS/HCC); Essential (primary) hypertension; Schizophrenia, unspecified (CMS/HCC); Unspecified dementia, unspecified severity, without behavioral disturbance, psychotic disturbance, mood disturbance, and anxiety (CMS/HCC); Vitamin D deficiency, unspecified Social History Tobacco Use Types Packs/Day Years [...] and anxiety (CMS/HCC) Vitamin D deficiency, unspecified documented in this encounter Results * (ABNORMAL) CBC auto differential (09/22/2024 5:04 AM EST) [facility] WBC 6.3 4.8 - 10.8 K/mcL LAB HEMETOLOGY METHOD 09/22/2024 11:45 AM [facility] LAB RBC 4.70 4.50 - 5.50 M/mcL LAB HEMETOLOGY METHOD 09/22/2024 11:45 AM [facility] LAB Hemoglobin 13.7 13.5 - 17.5 g/dL LAB HEMETOLOGY METHOD 09/22/2024 11:45 AM [facility] LAB Hematocrit 43.4 42.0 - 54.0 % LAB HEMETOLOGY METHOD 09/22/2024 11:45 AM [facility] LAB MCV 92.9 79.0 - 98.0 FL LAB HEMETOLOGY METHOD 09/22/2024 11:45 AM [facility] LAB MCH 29.3 27.0 - 32.0 pcg LAB HEMETOLOGY METHOD 09/22/2024 11:45 AM [facility] LAB MCHC 31.6(L) 32.0 - 37.0 g/dL LAB HEMETOLOGY METHOD 09/22/2024 11:45 AM [facility] LAB RDW 12.9 11.0 - 15.0 % LAB HEMETOLOGY METHOD 09/22/2024 11:45 AM [facility] LAB Platelets 187 130 - 400 K/mcL LAB HEMETOLOGY METHOD 09/22/2024 11:45 AM [facility] LAB MPV 11.0 7.0 - 11.0 FL LAB HEMETOLOGY METHOD 09/22/2024 11:45 AM [facility] LAB NRBC 0.0 <1.0 % LAB HEMETOLOGY METHOD 09/22/2024 11:45 AM [facility] LAB NRBC Absolute 0.00 <0.10 K/mcL LAB HEMETOLOGY METHOD 09/22/2024 11:45 AM [facility] LAB Neutrophils Relative 50.8 % LAB HEMETOLOGY METHOD 09/22/2024 11:45 AM [facility] LAB Lymphocytes Relative 37.8 % LAB HEMETOLOGY METHOD 09/22/2024 11:45 AM [facility] Monocytes Relative 7.6 % LAB HEMETOLOGY METHOD 09/22/2024 11:45 AM [facility] Eosinophils Relative 2.4 % LAB HEMETOLOGY METHOD 09/22/2024 11:45 AM [facility] Basophils Relative 1.1 % LAB HEMETOLOGY METHOD 09/22/2024 11:45 AM [facility] LAB Immature Granulocytes Relative 0.3 % LAB HEMETOLOGY METHOD 09/22/2024 11:45 AM [facility] Neutrophils Absolute 3.20 1.50 - 7.00 K/mcL LAB HEMETOLOGY METHOD 09/22/2024 11:45 AM [facility] Lymphocytes Absolute 2.38 1.00 - 5.00 K/mcL LAB HEMETOLOGY METHOD 09/22/2024 11:45 AM [facility] Monocytes Absolute 0.48 0.20 - 1.00 K/mcL LAB HEMETOLOGY METHOD 09/22/2024 11:45 AM [facility] Eosinophils Absolute 0.15 0.00 - 0.50 K/mcL LAB HEMETOLOGY METHOD 09/22/2024 11:45 AM EST [facility] Basophils Absolute 0.07 0.00 - 0.20 K/mcL LAB HEMETOLOGY METHOD 09/22/2024 11:45 AM EST [facility] Immature Granulocytes Absolute 0.02 0.00 - 0.03 K/mcL LAB HEMETOLOGY METHOD 09/22/2024 11:45 AM [facility] Blood Venous blood specimen / Unknown Venipuncture / Unknown 09/22/2024 5:04 AM EST 09/22/2024 9:36 AM EST us Nikki Moser MD LAB BLOOD ORDERABLES Final Resul t [facility] [address] [place] [address], [place] [phone] * (ABNORMAL) Basic metabolic panel (09/22/2024 5:04 AM EST) Sodium 139 133 - 145 mmol/L LAB CHEMISTRY METHOD 09/22/2024 10:56 AM [facility] Potassium 4.6 3.5 - 5.5 mmol/L LAB CHEMISTRY METHOD 09/22/2024 10:56 AM [facility] Chloride 104 96 - 110 mmol/L LAB CHEMISTRY METHOD 09/22/2024 10:56 AM [facility] CO2 28 21 - 32 mmol/L LAB CHEMISTRY METHOD 09/22/2024 10:56 AM [facility] Anion Gap 7 3 - 11 LAB CHEMISTRY METHOD 09/22/2024 10:56 AM [facility] Glucose 179(H) 70 - 100 mg/dL LAB CHEMISTRY METHOD 09/22/2024 10:56 AM [facility] BUN 19 5 - 25 mg/dL LAB CHEMISTRY METHOD 09/22/2024 10:56 AM [facility] Creatinine 0.87 0.70 - 1.30 mg/dL LAB CHEMISTRY METHOD 09/22/2024 10:56 AM EST [facility] LAB eGFR 91 >=60 mL/min/1. 73m2 LAB CHEMISTRY METHOD 09/22/2024 10:56 AM [facility] Comment:Calculation based on the??Chronic Kidney Disease Epidemiology Collaboration (CKD-EPI) equation refit??without adjustment for race. BUN/Creatinine Ratio 21.8 LAB CHEMISTRY METHOD 09/22/2024 10:56 AM EST [facility] Calcium 9.3 8.5 - 10.5 mg/dL LAB CHEMISTRY METHOD 09/22/2024 10:56 AM [facility] Blood Venous blood specimen / Unknown Venipuncture / Unknown 09/22/2024 5:04 AM EST 09/22/2024 9:36 AM EST us Nikki Moser MD LAB BLOOD ORDERABLES Final Resul t [facility] [address] [place] [address], documented in this encounter Visit Diagnoses Diagnosis Type 2 diabetes mellitus without complications (CMS/HCC) Essential (primary) hypertension Unspecified essential hypertension Schizophrenia, unspecified (CMS/HCC) Unspecified dementia, unspecified severity, without behavioral disturbance, psychotic disturbance, mood disturbance, and anxiety (CMS/HCC) Vitamin D deficiency, unspecified documented in this encounter Care Teams Coin Box Collector Relationship Specialty Start Date End Date Nikki Moser MD [address] [place] [address] [address] [place] [address] PCP - General Geriatric Medicine 09/01/24 documented as of this encounter
--- OUTSIDE RECORDS SUMMARY | 2024-09-24 13:39 | XMS_ITS | Encounter Summary ---
Author Organization [employer] Address [address] [place] [address] Care Team Providers Care Loom Changer Name Role Phone Nikki Moser MD Primary Care Provider [phone] Encounter Details Date Type Department Care Team (Late st Contact Info) Description 09/01/2024 Lab Requisition [facility] - Main Lab [address] [place] [address] Nikki Moser MD [address] [place] [address] Hypothyroidism, unspecified; Type 2 diabetes mellitus without complications (CMS/HCC) Social History Tobacco Use Types Packs/Day [...] Procedure Name Priority Date/Time Associated Diagnosis Comments COMPLETE BLOOD COUNT Routine 09/01/2024 6:25 AM EST Hypothyroidism, unspecified Type 2 diabetes mellitus without complications (CMS/HCC) THYROID STIMULATING HORMONE Routine 09/01/2024 6:25 AM EST Hypothyroidism, unspecified Type 2 diabetes mellitus without complications (CMS/HCC) HEMOGLOBIN A1C Routine 09/01/2024 6:25 AM EST Hypothyroidism, unspecified Type 2 diabetes mellitus without complications (CMS/HCC) COMPREHENSIVE METABOLIC PANEL Routine 09/01/2024 6:25 AM EST Hypothyroidism, unspecified Type 2 diabetes mellitus without complications (CMS/HCC) documented in this encounter Results * (ABNORMAL) Hemoglobin A1c (09/01/2024 6:25 AM EST) [facility] Hemoglobin A1C 10.2(H) <6.5 % LAB CHEMISTRY METHOD 09/01/2024 7:02 PM EST [facility] Mean Bld Glu Estim. 246 mg/dL LAB CHEMISTRY METHOD 09/01/2024 7:02 PM EST [facility] Blood Venous blood specimen / Unknown Venipuncture / Unknown 09/01/2024 6:25 AM EST 09/01/2024 10:02 AM EST us Nikki Moser MD LAB BLOOD ORDERABLES Final Resul t Performing Organization Address City/[facility]/ZIP Co de Phone Number [facility] [address] [place] [address], [place] [phone] * Thyroid stimulating hormone (09/01/2024 6:25 AM EST) [facility] TSH 2.71 0.40 - 4.00 mcIU/mL LAB CHEMISTRY METHOD 09/01/2024 11:18 AM EST [facility] Blood Venous blood specimen / Unknown Venipuncture / Unknown 09/01/2024 6:25 AM EST 09/01/2024 10:02 AM EST us Nikki Moser MD LAB BLOOD ORDERABLES Final Resul t Performing Organization Address City/[facility]/ZIP Co de Phone Number [facility] [address] [place] [address], [place] [phone] * (ABNORMAL) Comprehensive metabolic panel (09/01/2024 6:25 AM EST) [facility] Sodium 139 133 - 145 mmol/L LAB CHEMISTRY METHOD 09/01/2024 11:01 AM EST [facility] Potassium 4.5 3.5 - 5.5 mmol/L LAB CHEMISTRY METHOD 09/01/2024 11:01 AM EST [facility] Comment:Hemolysis present Chloride 105 96 - 110 mmol/L LAB CHEMISTRY METHOD 09/01/2024 11:01 AM [facility] CO2 27 21 - 32 mmol/L LAB CHEMISTRY METHOD 09/01/2024 11:01 AM [facility] Anion Gap 7 3 - 11 LAB CHEMISTRY METHOD 09/01/2024 11:01 AM [facility] Glucose 174(H) 70 - 100 mg/dL LAB CHEMISTRY METHOD 09/01/2024 11:01 AM [facility] BUN 14 5 - 25 mg/dL LAB CHEMISTRY METHOD 09/01/2024 11:01 AM [facility] Creatinine 0.76 0.70 - 1.30 mg/dL LAB CHEMISTRY METHOD 09/01/2024 11:01 AM [facility] eGFR 94 >=60 mL/min/1. 73m2 LAB CHEMISTRY METHOD 09/01/2024 11:01 AM [facility] Comment:Calculation based on the??Chronic Kidney Disease Epidemiology Collaboration (CKD-EPI) equation refit??without adjustment for race. BUN/Creatinine Ratio 18.4 LAB CHEMISTRY METHOD 09/01/2024 11:01 AM [facility] Calcium 8.8 8.5 - 10.5 mg/dL LAB CHEMISTRY METHOD 09/01/2024 11:01 AM [facility] AST (SGOT) 41 10 - 42 unit/L LAB CHEMISTRY METHOD 09/01/2024 11:01 AM [facility] Comment:Hemolysis present ALT (SGPT) 50 10 - 60 unit/L LAB CHEMISTRY METHOD 09/01/2024 11:01 AM [facility] Alkaline Phosphatase 102 42 - 121 unit/L LAB CHEMISTRY METHOD 09/01/2024 11:01 AM [facility] Total Protein 6.4 6.0 - 8.0 g/dL LAB CHEMISTRY METHOD 09/01/2024 11:01 AM [facility] Albumin 3.7 3.2 - 5.0 g/dL LAB CHEMISTRY METHOD 09/01/2024 11:01 AM [facility] Total Bilirubin 0.4 0.0 - 1.4 mg/dL LAB CHEMISTRY METHOD 09/01/2024 11:01 AM [facility] Blood Venous blood specimen / Unknown Venipuncture / Unknown 09/01/2024 6:25 AM EST 09/01/2024 10:02 AM EST us Nikki Moser MD LAB BLOOD ORDERABLES Final Resul t [facility] [address] [place] [address], * (ABNORMAL) Complete blood count (09/01/2024 6:25 AM EST) WBC 5.4 4.8 - 10.8 K/mcL LAB HEMETOLOGY METHOD 09/01/2024 10:41 AM [facility] RBC 4.80 4.50 - 5.50 M/mcL LAB HEMETOLOGY METHOD 09/01/2024 10:41 AM [facility] Hemoglobin 13.8 13.5 - 17.5 g/dL LAB HEMETOLOGY METHOD 09/01/2024 10:41 AM [facility] Hematocrit 41.6(L) 42.0 - 54.0 % LAB HEMETOLOGY METHOD 09/01/2024 10:41 AM [facility] MCV 87.6 79.0 - 98.0 FL LAB HEMETOLOGY METHOD 09/01/2024 10:41 AM [facility] MCH 29.1 27.0 - 32.0 pcg LAB HEMETOLOGY METHOD 09/01/2024 10:41 AM [facility] MCHC 33.2 32.0 - 37.0 g/dL LAB HEMETOLOGY METHOD 09/01/2024 10:41 AM [facility] RDW 12.9 11.0 - 15.0 % LAB HEMETOLOGY METHOD 09/01/2024 10:41 AM EST [facility] Platelets 196 130 - 400 K/mcL LAB HEMETOLOGY METHOD 09/01/2024 10:41 AM EST [facility] MPV 11.0 7.0 - 11.0 FL LAB HEMETOLOGY METHOD 09/01/2024 10:41 AM EST [facility] NRBC 0.0 <1.0 % LAB HEMETOLOGY METHOD 09/01/2024 10:41 AM EST [facility] NRBC Absolute 0.00 <0.10 K/mcL LAB HEMETOLOGY METHOD 09/01/2024 10:41 AM EST [facility] Blood Venous blood specimen / Unknown Venipuncture / Unknown 09/01/2024 6:25 AM EST 09/01/2024 10:02 AM EST us Nikki Moser MD LAB BLOOD ORDERABLES Final Resul t [facility] [address] [place] [address], documented in this encounter Visit Diagnoses Diagnosis Hypothyroidism, unspecified Type 2 diabetes mellitus without complications (CMS/HCC) documented in this encounter Care Teams Loom Changer Relationship Specialty Start Date End Date Nikki Moser MD [address] [place] [address] [address] [place] [address] PCP - General Geriatric Medicine 09/01/24 documented as of this encounter
--- OUTSIDE RECORDS SUMMARY | 2024-09-24 13:39 | XMS_ITS | Patient Health Record ---
Author Organization [facility] Address [address] [place] [address] Care Team Providers Care Making Machine Operator Name Role Phone Jenise Millie Primary Care Provider UnavailChavez Soares Jr Unavailable ALLERGIES Allergen (clinical drug ingredient) Drug/Non Drug Allergy documented on EMR Reaction Allergy Type Onset Date Status lisinopril Lisinopril Unknown Drug Allergy Activ e REASON FOR REFERRAL No Information MEDICATIONS Medication SIG (Take, Route, Frequency, Duration) Notes Start Date End Date Status MiraLax (colon prep) 17 GM/SCOOP mixed with Gatorade or Crystal Light Orally begin at 5:00 p.m. the day before the procedure for 1 day 03/28/2022 Active QUEtiapine Fumarate 25 MG Oral for 90 Active Losartan Potassium 25 MG Oral for 90 Active Escitalopram Oxalate 10 MG Oral for 90 Active Lantus SoloStar 100 UNIT/ML Subcutaneous for 120 Active Finasteride 5 MG Oral for 90 A ctive HumaLOG KwikPen 100 UNIT/ML Subcutaneous for 90 Active metFORMIN HCl 1000 MG Oral for 90 Active OneTouch Verio - In Vitro for 90 Active Vitamin D3 50 MCG (1999 [place]) TAKE 1 CAPSULE BY MOUTH EVERY DAY Oral for 90 Active Atorvastatin Calcium 40 MG Oral for 90 Active IMMUNIZATIONS Vaccine Route Administration Date Status Comme nts Influenza Unknown 06/19/2021 Administered SOCIAL HISTORY Tobacco Use: Social History Observation Description Date Details (start date - stop date) Former Smoker NA - NA Sex Assigned At : Social History Observation Description Sex Assigned At Unknown Tobacco Use/Smoking Question Answer Notes Patient is a former smoker Alcohol Screen Question Answer Notes Did you have a drink containing alcohol in the p ast year? No Points 0 Interpretation Negative PROBLEMS Problem Type ICD Code Onset Dates Problem Status W/U Status Risk SNOMED Code Notes Problem Colon cancer screening (Z12.11) Active confirmed 002898365 Problem MCC (current) use of insulin (Z79.4) Active confirmed 055824803 PLAN OF TREATMENT Future Test Test Name Order Date COLONOSCOPY 03/28/2022 Insurance Providers Payer Name Payer Address Payer Phone Subscriber Number Group Number Insured Name Patient Relationship to Insured Coverage Start Date Coverage End Date [employer] Medicare Advantage Plan [address] [address] [place] [address] [phone] [id number] AUG[place]US REYNOSO Self - patient is the insured MEDICAL (GENERAL) HISTORY Medical History History ICD Code Diabetes mellitus type 2 BPH Depression Elevated cholesterol Dementia Retinitis pigmentosa Rib fracture Surgical History Surgery Date(Month/Year)
== END 2024-09-24 12:32 | disposition home or self-care (01) ==
LOC: HO.HUSH 11:26
PROVIDERS: PCP Internal Medicine; Visit Provider Urology
DX: C61 Malignant neoplasm of prostate (principal)
CPT/HCPCS: 99214; G2211

== ENCOUNTER 2024-09-24 12:35 | Outpatient (REF) | payer MEDICARE, MEDICAID, SELFPAY ==
[2024-09-24 14:19] LABS: PSA,Total (Free>4and<10) 3.53 ng/mL (0.00-4.00)
--- OUTSIDE RECORDS SUMMARY | 2024-09-24 14:41 | XMS_ITS | Encounter Summary ---
Author Organization [facility] Address [address] [place] [address] Care Team Providers Care Telephone Answering Service Operator Name Role Phone Nikki Moser MD Primary Care Provider [phone] Encounter Details Date Type Department Care Team (Late st Contact Info) Description 09/08/2024 Lab Requisition [facility] - Main Lab [address] [facility] [place] [address] Nikki Moser MD [address] [place] [address] Malignant neoplasm of prostate (CMS/HCC) Social History [...] LAB CHEMISTRY METHOD 09/08/2024 1:21 PM EST [facility] Blood Venous blood specimen / Unknown Venipuncture / Unknown 09/08/2024 6:08 AM EST 09/08/2024 11:53 AM EST Narrative [facility] - 09/08/2024 1:21 PM EST The Siemens Advia Centaur Chemiluminescent Immunoassay is used. Results obtained with different assay methods or kits cannot be used interchangeably. Results cannot be interpreted as absolute evidence of the presence or absence of malignant disease. Nikki Moser MD LAB BLOOD ORDERABLES Final Resul t [facility] ([facility] [address] [place] [address], documented in this encounter Visit Diagnoses Diagnosis Malignant neoplasm of prostate (CMS/HCC) Malignant neoplasm of prostate documented in this encounter Care Teams Telephone Answering Service Operator Relationship Specialty Start Date End Date Nikki Moser MD [address] [place] [address] [address] [place] [address] PCP - General Geriatric Medicine 09/01/24 documented as of this encounter
--- OUTSIDE RECORDS SUMMARY | 2024-09-24 14:41 | XMS_ITS | Clinical Summary ---
Author Organization 299 [facility] Address [address] [place] [address] Phone Care Team Providers Care Director Of Catering Sales Name Role Phone Nikki Moser MD Primary Care Provider Encounters Date Type Department Care Team Description 09/22/2024 Lab Requisition [facility] [address] [place] [id number] Nikki Moser MD Type 2 diabetes mellitus without complications (CMS/HCC); Essential (primary) hypertension; Schizophrenia, unspecified (CMS/HCC); Unspecified dementia, unspecified severity, without behavioral disturbance, psychotic disturbance, mood disturbance, and anxiety (CMS/HCC); Vitamin D deficiency, unspecified 09/08/[address] [facility] - Main Lab [address] [place] [id number] Nikki Moser MD Malignant neoplasm of prostate (CMS/HCC) 09/01/2024 Lab Requisition [facility] [address] [place] [phone] Nikki Moser MD Hypothyroidism, unspecified; Type 2 [...] AM EST) WBC 6.3 4.8 - 10.8 K/[facility] LAB HEMETOLOGY METHOD 09/22/2024 11:45 AM EST [facility] RBC 4.70 4.50 - 5.50 M/[facility] LAB HEMETOLOGY METHOD 09/22/2024 11:45 AM [facility] [...] LAB HEMETOLOGY METHOD 09/22/2024 11:45 AM EST [facility] Eosinophils Absolute 0.15 0.00 - 0.50 K/mcL LAB HEMETOLOGY METHOD 09/22/2024 11:45 AM [facility] Basophils Absolute 0.07 0.00 - 0.20 K/mcL LAB HEMETOLOGY METHOD 09/22/2024 11:45 AM [facility] Immature Granulocytes Absolute 0.02 0.00 - 0.03 K/mcL LAB HEMETOLOGY METHOD 09/22/2024 11:45 AM [facility] Blood Venous blood specimen / Unknown Venipuncture / Unknown 09/22/2024 5:04 AM EST 09/22/2024 9:36 AM EST us Nkiki Moser MD LAB BLOOD ORDERABLES Final Resul t [facility] [address] [place] [address], * (ABNORMAL) Basic metabolic panel (09/22/2024 5:04 [...] 10:56 AM [facility] eGFR 91 >=60 mL/min/1. 73m2 LAB CHEMISTRY METHOD 09/22/2024 10:56 AM [facility] Comment:Calculation based on the??Chronic Kidney Disease Epidemiology Collaboration (CKD-EPI) equation refit??without adjustment for race. BUN/Creatinine Ratio 21.8 LAB CHEMISTRY METHOD 09/22/2024 10:56 AM [facility] Calcium 9.3 8.5 - 10.5 mg/dL LAB CHEMISTRY METHOD 09/22/2024 10:56 AM [facility] Blood Venous blood specimen / Unknown Venipuncture / Unknown 09/22/2024 5:04 AM EST 09/22/2024 9:36 AM EST Nikki Moser MD LAB BLOOD ORDERABLES Final Resul t Performing Organization Address City/[facility]/ZIP Co de Phone Number [facility] [address] [place] [address], [place] [phone] * Prostate specific antigen diagnostic (09/08/2024 6:08 AM EST) PSA 1.68 0.00 - 4.00 ng/mL LAB CHEMISTRY METHOD 09/08/2024 1:21 PM EST [facility] Blood Venous blood specimen / Unknown Venipuncture / Unknown 09/08/2024 6:08 AM EST 09/08/2024 11:53 AM EST Narrative [facility] - 09/08/2024 1:21 PM EST The Siemens Advia Acopioaur Chemiluminescent Immunoassay is used. Results obtained with different assay methods or kits cannot be used interchangeably. Results cannot be interpreted as absolute evidence of the presence or absence of malignant disease. Nikki Moser MD LAB BLOOD ORDERABLES Final Resul t Performing Organization Address [facility]/ZIP Co de Phone Number [facility] [address] [place] [address], [place] [phone] * (ABNORMAL) Complete blood count (09/01/2024 6:25 AM EST) WBC 5.4 4.8 - 10.8 K/mcL LAB HEMETOLOGY METHOD 09/01/2024 10:41 AM EST [facility] RBC 4.80 4.50 - 5.50 M/mcL LAB HEMETOLOGY METHOD 09/01/2024 10:41 AM EST [facility] Hemoglobin 13.8 13.5 - 17.5 g/dL LAB HEMETOLOGY METHOD 09/01/2024 10:41 AM EST [facility] Hematocrit 41.6(L) 42.0 - 54.0 % LAB HEMETOLOGY METHOD 09/01/2024 10:41 AM EST [facility] MCV 87.6 79.0 - 98.0 FL LAB HEMETOLOGY METHOD 09/01/2024 10:41 AM EST [facility] MCH 29.1 27.0 - 32.0 pcg LAB HEMETOLOGY METHOD 09/01/2024 10:41 AM EST [facility] MCHC 33.2 32.0 - 37.0 g/dL LAB HEMETOLOGY METHOD 09/01/2024 10:41 AM EST [facility] RDW 12.9 11.0 - 15.0 % LAB HEMETOLOGY METHOD 09/01/2024 10:41 AM [facility] Platelets 196 130 - 400 K/mcL LAB HEMETOLOGY METHOD 09/01/2024 10:41 AM [facility] MPV 11.0 7.0 - 11.0 FL LAB HEMETOLOGY METHOD 09/01/2024 10:41 AM EST [facility] NRBC 0.0 <1.0 % LAB HEMETOLOGY METHOD 09/01/2024 10:41 AM [facility] NRBC Absolute 0.00 <0.10 K/mcL LAB HEMETOLOGY METHOD 09/01/2024 10:41 AM [facility] Blood Venous blood specimen / Unknown Venipuncture / Unknown 09/01/2024 6:25 AM EST 09/01/2024 10:02 AM EST us Nikki Moser MD LAB BLOOD ORDERABLES Final Resul t [facility] [address] [place] [address], * Thyroid stimulating hormone (09/01/2024 6:25 AM EST) TSH 2.71 0.40 - 4.00 mcIU/mL LAB CHEMISTRY METHOD 09/01/2024 11:18 AM EST [facility] Blood Venous blood specimen / Unknown Venipuncture / Unknown 09/01/2024 6:25 AM EST 09/01/2024 10:02 AM EST us Nikki Moser MD LAB BLOOD ORDERABLES Final Resul t Performing Organization Address [facility] Co de Phone Number [facility] [address] [place] [address], [place] [phone] * (ABNORMAL) Hemoglobin A1c (09/01/2024 6:25 AM EST) Hemoglobin A1C 10.2(H) <6.5 % LAB CHEMISTRY METHOD 09/01/2024 7:02 PM [facility] Mean Bld Glu Estim. 246 mg/dL LAB CHEMISTRY METHOD 09/01/2024 7:02 PM [facility] Blood Venous blood specimen / Unknown Venipuncture / Unknown 09/01/2024 6:25 AM EST 09/01/2024 10:02 AM EST us Nikki Moser MD LAB BLOOD ORDERABLES Final Resul t Performing Organization Address [facility] de Phone Number [facility] [address] [place] [address], [place] [phone] * (ABNORMAL) Comprehensive metabolic panel (09/01/2024 6:25 AM EST) Sodium 139 133 - 145 mmol/L LAB CHEMISTRY METHOD 09/01/2024 11:01 AM [facility] Potassium 4.5 3.5 - 5.5 mmol/L LAB CHEMISTRY METHOD 09/01/2024 11:01 AM [facility] Comment:Hemolysis present Chloride 105 96 - 110 mmol/L LAB CHEMISTRY METHOD 09/01/2024 11:01 AM EST [facility] CO2 27 21 - 32 mmol/L LAB CHEMISTRY METHOD 09/01/2024 11:01 AM [facility] Anion Gap 7 3 - 11 LAB CHEMISTRY METHOD 09/01/2024 11:01 AM [facility] Glucose 174(H) 70 - 100 mg/dL LAB CHEMISTRY METHOD 09/01/2024 11:01 AM [facility] BUN 14 5 - 25 mg/dL LAB CHEMISTRY METHOD 09/01/2024 11:01 AM [facility] Creatinine 0.76 0.70 - 1.30 mg/dL LAB CHEMISTRY METHOD 09/01/2024 11:01 AM [facility] eGFR 94 >=60 mL/min/1. 73m2 LAB CHEMISTRY METHOD 09/01/2024 11:01 AM [facility] Comment:Calculation based on the??Chronic Kidney Disease Epidemiology Collaboration (CKD-EPI) equation refit??without adjustment for race. BUN/Creatinine Ratio 18.4 LAB CHEMISTRY METHOD 09/01/2024 11:01 AM [facility] Calcium 8.8 8.5 - 10.5 mg/dL LAB CHEMISTRY METHOD 09/01/2024 11:01 AM [facility] AST (SGOT) 41 10 - 42 unit/L LAB CHEMISTRY METHOD 09/01/2024 11:01 AM [facility] Comment:Hemolysis present ALT (SGPT) 50 10 - 60 unit/L LAB CHEMISTRY METHOD 09/01/2024 11:01 AM [facility] Alkaline Phosphatase 102 42 - 121 unit/L LAB CHEMISTRY METHOD 09/01/2024 11:01 AM [facility] Total Protein 6.4 6.0 - 8.0 g/dL LAB CHEMISTRY METHOD 09/01/2024 11:01 AM [facility] Albumin 3.7 3.2 - 5.0 g/dL LAB CHEMISTRY METHOD 09/01/2024 11:01 AM [facility] Total Bilirubin 0.4 0.0 - 1.4 mg/dL LAB CHEMISTRY METHOD 09/01/2024 11:01 AM EST [facility] Blood Venous blood specimen / Unknown Venipuncture / Unknown 09/01/2024 6:25 AM EST 09/01/2024 10:02 AM EST us Nikki Moser MD LAB BLOOD ORDERABLES Final Resul t [facility] ([facility]) [facility] [address] [place] [address], [place] [phone] from Last 3 Months Insurance MEDICARE MEDICAID - [place] Care Teams Director Of Catering Sales Relationship Specialty Start Date End Date Nikki Moser MD [address] [place] [address] [address] [place] [address] PCP - General Geriatric Medicine 09/01/24
--- OUTSIDE RECORDS SUMMARY | 2024-09-24 14:41 | XMS_ITS | Encounter Summary ---
Author Organization [employer] Address [address] [place] [address] Care Team Providers Care Petroleum Inspector Name Role Phone Nikki Moser MD Primary Care Provider [phone] Encounter Details Date Type Department Care Team (Late st Contact Info) Description 09/22/2024 Lab Requisition [facility] - Main Lab 299 [facility] [place] [address] Nikki Moser MD [address] [place] [address] Type 2 diabetes mellitus without complications (CMS/HCC); [...] CBC auto differential (09/22/2024 5:04 AM EST) [facility] WBC 6.3 4.8 - 10.8 K/mcL LAB HEMETOLOGY METHOD 09/22/2024 11:45 AM [facility] RBC 4.70 4.50 - 5.50 M/mcL LAB HEMETOLOGY METHOD 09/22/2024 11:45 AM [facility] Hemoglobin 13.7 13.5 - 17.5 g/dL LAB HEMETOLOGY METHOD 09/22/2024 11:45 AM [facility] Hematocrit 43.4 42.0 - 54.0 % LAB HEMETOLOGY METHOD 09/22/2024 11:45 AM [facility] MCV 92.9 79.0 - 98.0 FL LAB HEMETOLOGY METHOD 09/22/2024 11:45 AM [facility] MCH 29.3 27.0 - 32.0 pcg LAB HEMETOLOGY METHOD 09/22/2024 11:45 AM [facility] MCHC 31.6(L) 32.0 - 37.0 g/dL LAB HEMETOLOGY METHOD 09/22/2024 11:45 AM [facility] RDW 12.9 11.0 - 15.0 % LAB HEMETOLOGY METHOD 09/22/2024 11:45 AM [facility] Platelets 187 130 - 400 K/mcL LAB HEMETOLOGY METHOD 09/22/2024 11:45 AM [facility] MPV 11.0 7.0 - 11.0 FL LAB HEMETOLOGY METHOD 09/22/2024 11:45 AM [facility] NRBC 0.0 <1.0 % LAB HEMETOLOGY METHOD 09/22/2024 11:45 AM [facility] NRBC Absolute 0.00 <0.10 K/mcL LAB HEMETOLOGY METHOD 09/22/2024 11:45 AM [facility] Neutrophils Relative 50.8 % LAB HEMETOLOGY METHOD 09/22/2024 11:45 AM [facility] Lymphocytes Relative 37.8 % LAB HEMETOLOGY METHOD 09/22/2024 11:45 AM [facility] Monocytes Relative 7.6 % LAB HEMETOLOGY METHOD 09/22/2024 11:45 AM [facility] Eosinophils Relative 2.4 % LAB HEMETOLOGY METHOD 09/22/2024 11:45 AM [facility] Basophils Relative 1.1 % LAB HEMETOLOGY METHOD 09/22/2024 11:45 AM [facility] Immature Granulocytes Relative 0.3 % LAB HEMETOLOGY METHOD 09/22/2024 11:45 AM [facility] Neutrophils Absolute 3.20 1.50 - 7.00 K/mcL LAB HEMETOLOGY METHOD 09/22/2024 11:45 AM [facility] Lymphocytes Absolute 2.38 1.00 - 5.00 K/mcL LAB HEMETOLOGY METHOD 09/22/2024 11:45 AM [facility] Monocytes Absolute 0.48 0.20 - 1.00 K/mcL LAB HEMETOLOGY METHOD 09/22/2024 11:45 AM [facility] Eosinophils Absolute 0.15 0.00 - 0.50 K/mcL LAB HEMETOLOGY METHOD 09/22/2024 11:45 AM EST [facility] Basophils Absolute 0.07 0.00 - 0.20 K/mcL LAB HEMETOLOGY METHOD 09/22/2024 11:45 AM EST [facility] Immature Granulocytes Absolute 0.02 0.00 - 0.03 K/mcL LAB HEMETOLOGY METHOD 09/22/2024 11:45 AM [facility] Blood Venous blood specimen / Unknown Venipuncture / Unknown 09/22/2024 5:04 AM EST 09/22/2024 9:36 AM EST us Nikki Moser MD LAB BLOOD ORDERABLES Final Resul t [facility] [address] [place] [address], [place] [phone] * (ABNORMAL) Basic metabolic panel (09/22/2024 5:04 AM EST) Sodium 139 133 - 145 mmol/L LAB CHEMISTRY METHOD 09/22/2024 10:56 AM [facility] Potassium 4.6 3.5 - 5.5 mmol/L LAB CHEMISTRY METHOD 09/22/2024 10:56 AM [facility] Chloride 104 96 - 110 mmol/L LAB CHEMISTRY METHOD 09/22/2024 10:56 AM [facility] CO2 28 21 - 32 mmol/L LAB CHEMISTRY METHOD 09/22/2024 10:56 AM [facility] Anion Gap 7 3 - 11 LAB CHEMISTRY METHOD 09/22/2024 10:56 AM [facility] Glucose 179(H) 70 - 100 mg/dL LAB CHEMISTRY METHOD 09/22/2024 10:56 AM [facility] BUN 19 5 - 25 mg/dL LAB CHEMISTRY METHOD 09/22/2024 10:56 AM [facility] Creatinine 0.87 0.70 - 1.30 mg/dL LAB CHEMISTRY METHOD 09/22/2024 10:56 AM EST [facility] eGFR 91 >=60 mL/min/1. 73m2 LAB CHEMISTRY METHOD 09/22/2024 10:56 AM [facility] Comment:Calculation based on the??Chronic Kidney Disease Epidemiology Collaboration (CKD-EPI) equation refit??without adjustment for race. BUN/Creatinine Ratio 21.8 LAB CHEMISTRY METHOD 09/22/2024 10:56 AM EST [facility] Calcium 9.3 8.5 - 10.5 mg/dL LAB CHEMISTRY METHOD 09/22/2024 10:56 AM [facility] Blood Venous blood specimen / Unknown Venipuncture / Unknown 09/22/2024 5:04 AM EST 09/22/2024 9:36 AM EST us Nikki Moser MD LAB BLOOD ORDERABLES Final Resul t [facility] [address] [place] [address], documented in this encounter Visit Diagnoses Diagnosis Type 2 diabetes mellitus without complications (CMS/HCC) Essential (primary) hypertension Unspecified essential hypertension Schizophrenia, unspecified (CMS/HCC) Unspecified dementia, unspecified severity, without behavioral disturbance, psychotic disturbance, mood disturbance, and anxiety (CMS/HCC) Vitamin D deficiency, unspecified documented in this encounter Care Teams Petroleum Inspector Relationship Specialty Start Date End Date Nikki Moser MD [address] [place] [address] [address] [place] [address] PCP - General Geriatric Medicine 09/01/24 documented as of this encounter
--- OUTSIDE RECORDS SUMMARY | 2024-09-24 14:41 | XMS_ITS | Encounter Summary ---
Author Organization [employer] Address [address] [place] [address] Care Team Providers Care Binder Lockstitch Name Role Phone Nikki Moser MD Primary Care Provider [phone] Encounter Details Date Type Department Care Team (Late st Contact Info) Description 09/01/2024 Lab Requisition [facility] - Main Lab 299 [facility] [place] [address] Nikki Moser MD [address] [place] [address] Hypothyroidism, unspecified; Type 2 diabetes mellitus without [...] (ABNORMAL) Hemoglobin A1c (09/01/2024 6:25 AM EST) [facility] Hemoglobin A1C 10.2(H) <6.5 % LAB CHEMISTRY METHOD 09/01/2024 7:02 PM EST [facility] Mean Bld Glu Estim. 246 mg/dL LAB CHEMISTRY METHOD 09/01/2024 7:02 PM EST [facility] Blood Venous blood specimen / Unknown Venipuncture / Unknown 09/01/2024 6:25 AM EST 09/01/2024 10:02 AM EST us Nikki Moser MD LAB BLOOD ORDERABLES Final Resul t Performing Organization Address City/[facility]/ZIP Co de Phone Number [facility] [address] [place] [address], [place] [phone] * Thyroid stimulating hormone (09/01/2024 6:25 AM EST) [facility] TSH 2.71 0.40 - 4.00 mcIU/mL LAB CHEMISTRY METHOD 09/01/2024 11:18 AM EST [facility] Blood Venous blood specimen / Unknown Venipuncture / Unknown 09/01/2024 6:25 AM EST 09/01/2024 10:02 AM EST us Nikki Moser MD LAB BLOOD ORDERABLES Final Resul t Performing Organization Address City/[facility]/ZIP Co de Phone Number [facility] [address] [place] [address], [place] [phone] * (ABNORMAL) Comprehensive metabolic panel (09/01/2024 6:25 AM EST) [facility] Sodium 139 133 - 145 mmol/L LAB CHEMISTRY METHOD 09/01/2024 11:01 AM EST [facility] Potassium 4.5 3.5 - 5.5 mmol/L LAB CHEMISTRY METHOD 09/01/2024 11:01 AM EST [facility] Comment:Hemolysis present Chloride 105 96 - 110 mmol/L LAB CHEMISTRY METHOD 09/01/2024 11:01 AM [facility] CO2 27 21 - 32 mmol/L LAB CHEMISTRY METHOD 09/01/2024 11:01 AM [facility] Anion Gap 7 3 - 11 LAB CHEMISTRY METHOD 09/01/2024 11:01 AM [facility] Glucose 174(H) 70 - 100 mg/dL LAB CHEMISTRY METHOD 09/01/2024 11:01 AM [facility] BUN 14 5 - 25 mg/dL LAB CHEMISTRY METHOD 09/01/2024 11:01 AM [facility] Creatinine 0.76 0.70 - 1.30 mg/dL LAB CHEMISTRY METHOD 09/01/2024 11:01 AM [facility] eGFR 94 >=60 mL/min/1. 73m2 LAB CHEMISTRY METHOD 09/01/2024 11:01 AM [facility] Comment:Calculation based on the??Chronic Kidney Disease Epidemiology Collaboration (CKD-EPI) equation refit??without adjustment for race. BUN/Creatinine Ratio 18.4 LAB CHEMISTRY METHOD 09/01/2024 11:01 AM [facility] Calcium 8.8 8.5 - 10.5 mg/dL LAB CHEMISTRY METHOD 09/01/2024 11:01 AM [facility] AST (SGOT) 41 10 - 42 unit/L LAB CHEMISTRY METHOD 09/01/2024 11:01 AM [facility] Comment:Hemolysis present ALT (SGPT) 50 10 - 60 unit/L LAB CHEMISTRY METHOD 09/01/2024 11:01 AM [facility] Alkaline Phosphatase 102 42 - 121 unit/L LAB CHEMISTRY METHOD 09/01/2024 11:01 AM [facility] Total Protein 6.4 6.0 - 8.0 g/dL LAB CHEMISTRY METHOD 09/01/2024 11:01 AM [facility] Albumin 3.7 3.2 - 5.0 g/dL LAB CHEMISTRY METHOD 09/01/2024 11:01 AM [facility] Total Bilirubin 0.4 0.0 - 1.4 mg/dL LAB CHEMISTRY METHOD 09/01/2024 11:01 AM [facility] Blood Venous blood specimen / Unknown Venipuncture / Unknown 09/01/2024 6:25 AM EST 09/01/2024 10:02 AM EST us Nikki Moser MD LAB BLOOD ORDERABLES Final Resul t [facility] [address] [place] [address], * (ABNORMAL) Complete blood count (09/01/2024 6:25 AM EST) WBC 5.4 4.8 - 10.8 K/mcL LAB HEMETOLOGY METHOD 09/01/2024 10:41 AM [facility] RBC 4.80 4.50 - 5.50 M/mcL LAB HEMETOLOGY METHOD 09/01/2024 10:41 AM [facility] Hemoglobin 13.8 13.5 - 17.5 g/dL LAB HEMETOLOGY METHOD 09/01/2024 10:41 AM [facility] Hematocrit 41.6(L) 42.0 - 54.0 % LAB HEMETOLOGY METHOD 09/01/2024 10:41 AM [facility] MCV 87.6 79.0 - 98.0 FL LAB HEMETOLOGY METHOD 09/01/2024 10:41 AM [facility] MCH 29.1 27.0 - 32.0 pcg LAB HEMETOLOGY METHOD 09/01/2024 10:41 AM [facility] MCHC 33.2 32.0 - 37.0 g/dL LAB HEMETOLOGY METHOD 09/01/2024 10:41 AM [facility] RDW 12.9 11.0 - 15.0 % LAB HEMETOLOGY METHOD 09/01/2024 10:41 AM EST [facility] Platelets 196 130 - 400 K/mcL LAB HEMETOLOGY METHOD 09/01/2024 10:41 AM EST [facility] MPV 11.0 7.0 - 11.0 FL LAB HEMETOLOGY METHOD 09/01/2024 10:41 AM EST [facility] NRBC 0.0 <1.0 % LAB HEMETOLOGY METHOD 09/01/2024 10:41 AM EST [facility] NRBC Absolute 0.00 <0.10 K/mcL LAB HEMETOLOGY METHOD 09/01/2024 10:41 AM EST [facility] Blood Venous blood specimen / Unknown Venipuncture / Unknown 09/01/2024 6:25 AM EST 09/01/2024 10:02 AM EST us Nikki Moser MD LAB BLOOD ORDERABLES Final Resul t [facility] [address] [place] [address], documented in this encounter Visit Diagnoses Diagnosis Hypothyroidism, unspecified Type 2 diabetes mellitus without complications (CMS/HCC) documented in this encounter Care Teams Binder Lockstitch Relationship Specialty Start Date End Date Nikki Moser MD [address] [place] [address] [address] [place] [address] PCP - General Geriatric Medicine 09/01/24 documented as of this encounter
== END 2024-09-24 12:36 | disposition home or self-care (01) ==
LOC: HO.10HDL 12:35
PROVIDERS: Visit Provider Urology
DX: C61 Malignant neoplasm of prostate (principal); Z12.5 Encounter for screening for malignant neoplasm of prostate
CPT/HCPCS: 36415; 51798; 84153; 99212

== ENCOUNTER 2024-10-01 11:02 | Outpatient (AMB) | payer MEDICARE, MEDICAID, SELFPAY ==
--- NOTE | 2024-10-01 11:08 | AM.OFFVISNUR ---
Intake Visit Reasons: [facility] Allergies No Known Allergies Allergy (Verified 09/24/24 11:27) Office Meds Eligard (6 month) 45 mg (6 month) subcutaneous syringe Performing Provider: Kike Eid MD [facility] Administered by: Antwan Garcia LPN on 10/01/24 11:08 Dose Route Admin Location Dispensed Lot Number Expiration Date [facility] Cellar Worker 45 mg subcut Left Upper Arm 45 mg [id number] 12/26/25 07301-871-49 [employer]. Assessment & Plan Assessment & Plan Orders: Orders AMB Leuprolide Injection - Practice Supplied Today C61 - Malignant neoplasm of prostate Coding
--- OUTSIDE RECORDS SUMMARY | 2024-10-01 12:49 | XMS_ITS | Encounter Summary ---
Author Organization [employer] Address [address] [place] [address] Care Team Providers Care Enterprise Cloud Architect Name Role Phone Nikki Moser MD Primary Care Provider [phone] Encounter Details Date Type Department Care Team (Late st Contact Info) Description 09/01/2024 Lab Requisition [facility] - Main Lab [address] [facility] [place] [address] Nikki Moser MD [address] [place] [address] Hypothyroidism, unspecified; Type 2 diabetes mellitus without [...] (ABNORMAL) Hemoglobin A1c (09/01/2024 6:25 AM EST) [facility] Hemoglobin A1C 10.2(H) <6.5 % LAB CHEMISTRY METHOD 09/01/2024 7:02 PM EST [facility] Mean Bld Glu Estim. 246 mg/dL LAB CHEMISTRY METHOD 09/01/2024 7:02 PM EST [facility] Blood Venous blood specimen / Unknown Venipuncture / Unknown 09/01/2024 6:25 AM EST 09/01/2024 10:02 AM EST us Nikki Moser MD LAB BLOOD ORDERABLES Final Resul t Performing Organization Address City/[facility]/ZIP Co de Phone Number [facility] [address] [place] [address], [place] [phone] * Thyroid stimulating hormone (09/01/2024 6:25 AM EST) [facility] TSH 2.71 0.40 - 4.00 mcIU/mL LAB CHEMISTRY METHOD 09/01/2024 11:18 AM EST [facility] Blood Venous blood specimen / Unknown Venipuncture / Unknown 09/01/2024 6:25 AM EST 09/01/2024 10:02 AM EST us Nikki Moser MD LAB BLOOD ORDERABLES Final Resul t Performing Organization Address City/[facility]/ZIP Co de Phone Number [facility] [address] [place] [address], [place] [phone] * (ABNORMAL) Comprehensive metabolic panel (09/01/2024 6:25 AM EST) [facility] Sodium 139 133 - 145 mmol/L LAB CHEMISTRY METHOD 09/01/2024 11:01 AM EST [facility] Potassium 4.5 3.5 - 5.5 mmol/L LAB CHEMISTRY METHOD 09/01/2024 11:01 AM EST [facility] Comment:Hemolysis present Chloride 105 96 - 110 mmol/L LAB CHEMISTRY METHOD 09/01/2024 11:01 AM [facility] CO2 27 21 - 32 mmol/L LAB CHEMISTRY METHOD 09/01/2024 11:01 AM [facility] Anion Gap 7 3 - 11 LAB CHEMISTRY METHOD 09/01/2024 11:01 AM [facility] Glucose 174(H) 70 - 100 mg/dL LAB CHEMISTRY METHOD 09/01/2024 11:01 AM [facility] BUN 14 5 - 25 mg/dL LAB CHEMISTRY METHOD 09/01/2024 11:01 AM [facility] Creatinine 0.76 0.70 - 1.30 mg/dL LAB CHEMISTRY METHOD 09/01/2024 11:01 AM [facility] eGFR 94 >=60 mL/min/1. 73m2 LAB CHEMISTRY METHOD 09/01/2024 11:01 AM [facility] Comment:Calculation based on the??Chronic Kidney Disease Epidemiology Collaboration (CKD-EPI) equation refit??without adjustment for race. BUN/Creatinine Ratio 18.4 LAB CHEMISTRY METHOD 09/01/2024 11:01 AM [facility] Calcium 8.8 8.5 - 10.5 mg/dL LAB CHEMISTRY METHOD 09/01/2024 11:01 AM [facility] AST (SGOT) 41 10 - 42 unit/L LAB CHEMISTRY METHOD 09/01/2024 11:01 AM [facility] Comment:Hemolysis present ALT (SGPT) 50 10 - 60 unit/L LAB CHEMISTRY METHOD 09/01/2024 11:01 AM [facility] Alkaline Phosphatase 102 42 - 121 unit/L LAB CHEMISTRY METHOD 09/01/2024 11:01 AM [facility] Total Protein 6.4 6.0 - 8.0 g/dL LAB CHEMISTRY METHOD 09/01/2024 11:01 AM [facility] Albumin 3.7 3.2 - 5.0 g/dL LAB CHEMISTRY METHOD 09/01/2024 11:01 AM [facility] Total Bilirubin 0.4 0.0 - 1.4 mg/dL LAB CHEMISTRY METHOD 09/01/2024 11:01 AM [facility] Blood Venous blood specimen / Unknown Venipuncture / Unknown 09/01/2024 6:25 AM EST 09/01/2024 10:02 AM EST us Nikki Moser MD LAB BLOOD ORDERABLES Final Resul t [facility] [address] [place] [address], * (ABNORMAL) Complete blood count (09/01/2024 6:25 AM EST) WBC 5.4 4.8 - 10.8 K/mcL LAB HEMETOLOGY METHOD 09/01/2024 10:41 AM [facility] RBC 4.80 4.50 - 5.50 M/mcL LAB HEMETOLOGY METHOD 09/01/2024 10:41 AM [facility] Hemoglobin 13.8 13.5 - 17.5 g/dL LAB HEMETOLOGY METHOD 09/01/2024 10:41 AM [facility] Hematocrit 41.6(L) 42.0 - 54.0 % LAB HEMETOLOGY METHOD 09/01/2024 10:41 AM [facility] MCV 87.6 79.0 - 98.0 FL LAB HEMETOLOGY METHOD 09/01/2024 10:41 AM [facility] MCH 29.1 27.0 - 32.0 pcg LAB HEMETOLOGY METHOD 09/01/2024 10:41 AM [facility] MCHC 33.2 32.0 - 37.0 g/dL LAB HEMETOLOGY METHOD 09/01/2024 10:41 AM [facility] RDW 12.9 11.0 - 15.0 % LAB HEMETOLOGY METHOD 09/01/2024 10:41 AM EST [facility] Platelets 196 130 - 400 K/mcL LAB HEMETOLOGY METHOD 09/01/2024 10:41 AM EST [facility] MPV 11.0 7.0 - 11.0 FL LAB HEMETOLOGY METHOD 09/01/2024 10:41 AM EST [facility] NRBC 0.0 <1.0 % LAB HEMETOLOGY METHOD 09/01/2024 10:41 AM EST [facility] NRBC Absolute 0.00 <0.10 K/mcL LAB HEMETOLOGY METHOD 09/01/2024 10:41 AM EST [facility] Blood Venous blood specimen / Unknown Venipuncture / Unknown 09/01/2024 6:25 AM EST 09/01/2024 10:02 AM EST us Nikki Moser MD LAB BLOOD ORDERABLES Final Resul t [facility] [address] [place] [address], documented in this encounter Visit Diagnoses Diagnosis Hypothyroidism, unspecified Type 2 diabetes mellitus without complications (CMS/HCC) documented in this encounter Care Teams Enterprise Cloud Architect Relationship Specialty Start Date End Date Nikki Moser MD [address] [place] [address] [address] [place] [address] PCP - General Geriatric Medicine 09/01/24 documented as of this encounter
--- OUTSIDE RECORDS SUMMARY | 2024-10-01 12:49 | XMS_ITS | Encounter Summary ---
Author Organization [employer] Address [address] [place] [address] Care Team Providers Care Wet Machine Tender Name Role Phone Nikki Mosre MD Primary Care Provider [phone] Encounter Details Date Type Department Care Team (Late st Contact Info) Description 09/22/2024 Lab Requisition [facility] - Main Lab 299 [facility] [place] [address] Nikki Moser MD [address] [place] [address] Type 2 diabetes mellitus without complications (CMS/HCC); [...] CBC auto differential (09/22/2024 5:04 AM EST) [facility] WBC 6.3 4.8 - 10.8 K/mcL LAB HEMETOLOGY METHOD 09/22/2024 11:45 AM [facility] RBC 4.70 4.50 - 5.50 M/mcL LAB HEMETOLOGY METHOD 09/22/2024 11:45 AM [facility] Hemoglobin 13.7 13.5 - 17.5 g/dL LAB HEMETOLOGY METHOD 09/22/2024 11:45 AM [facility] Hematocrit 43.4 42.0 - 54.0 % LAB HEMETOLOGY METHOD 09/22/2024 11:45 AM [facility] MCV 92.9 79.0 - 98.0 FL LAB HEMETOLOGY METHOD 09/22/2024 11:45 AM [facility] MCH 29.3 27.0 - 32.0 pcg LAB HEMETOLOGY METHOD 09/22/2024 11:45 AM [facility] MCHC 31.6(L) 32.0 - 37.0 g/dL LAB HEMETOLOGY METHOD 09/22/2024 11:45 AM [facility] RDW 12.9 11.0 - 15.0 % LAB HEMETOLOGY METHOD 09/22/2024 11:45 AM [facility] Platelets 187 130 - 400 K/mcL LAB HEMETOLOGY METHOD 09/22/2024 11:45 AM [facility] MPV 11.0 7.0 - 11.0 FL LAB HEMETOLOGY METHOD 09/22/2024 11:45 AM [facility] NRBC 0.0 <1.0 % LAB HEMETOLOGY METHOD 09/22/2024 11:45 AM [facility] NRBC Absolute 0.00 <0.10 K/mcL LAB HEMETOLOGY METHOD 09/22/2024 11:45 AM [facility] Neutrophils Relative 50.8 % LAB HEMETOLOGY METHOD 09/22/2024 11:45 AM [facility] Lymphocytes Relative 37.8 % LAB HEMETOLOGY METHOD 09/22/2024 11:45 AM [facility] Monocytes Relative 7.6 % LAB HEMETOLOGY METHOD 09/22/2024 11:45 AM [facility] Eosinophils Relative 2.4 % LAB HEMETOLOGY METHOD 09/22/2024 11:45 AM [facility] Basophils Relative 1.1 % LAB HEMETOLOGY METHOD 09/22/2024 11:45 AM [facility] Immature Granulocytes Relative 0.3 % LAB HEMETOLOGY METHOD 09/22/2024 11:45 AM [facility] Neutrophils Absolute 3.20 1.50 - 7.00 K/mcL LAB HEMETOLOGY METHOD 09/22/2024 11:45 AM [facility] Lymphocytes Absolute 2.38 1.00 - 5.00 K/mcL LAB HEMETOLOGY METHOD 09/22/2024 11:45 AM [facility] Monocytes Absolute 0.48 0.20 - 1.00 K/mcL LAB HEMETOLOGY METHOD 09/22/2024 11:45 AM [facility] Eosinophils Absolute 0.15 0.00 - 0.50 K/mcL LAB HEMETOLOGY METHOD 09/22/2024 11:45 AM EST [facility] Basophils Absolute 0.07 0.00 - 0.20 K/mcL LAB HEMETOLOGY METHOD 09/22/2024 11:45 AM EST [facility] Immature Granulocytes Absolute 0.02 0.00 - 0.03 K/mcL LAB HEMETOLOGY METHOD 09/22/2024 11:45 AM [facility] Blood Venous blood specimen / Unknown Venipuncture / Unknown 09/22/2024 5:04 AM EST 09/22/2024 9:36 AM EST us Nikki Moser MD LAB BLOOD ORDERABLES Final Resul t [facility] [address] [place] [address], [place] [phone] * (ABNORMAL) Basic metabolic panel (09/22/2024 5:04 AM EST) Sodium 139 133 - 145 mmol/L LAB CHEMISTRY METHOD 09/22/2024 10:56 AM [facility] Potassium 4.6 3.5 - 5.5 mmol/L LAB CHEMISTRY METHOD 09/22/2024 10:56 AM [facility] Chloride 104 96 - 110 mmol/L LAB CHEMISTRY METHOD 09/22/2024 10:56 AM [facility] CO2 28 21 - 32 mmol/L LAB CHEMISTRY METHOD 09/22/2024 10:56 AM [facility] Anion Gap 7 3 - 11 LAB CHEMISTRY METHOD 09/22/2024 10:56 AM [facility] Glucose 179(H) 70 - 100 mg/dL LAB CHEMISTRY METHOD 09/22/2024 10:56 AM [facility] BUN 19 5 - 25 mg/dL LAB CHEMISTRY METHOD 09/22/2024 10:56 AM [facility] Creatinine 0.87 0.70 - 1.30 mg/dL LAB CHEMISTRY METHOD 09/22/2024 10:56 AM EST [facility] eGFR 91 >=60 mL/min/1. 73m2 LAB CHEMISTRY METHOD 09/22/2024 10:56 AM [facility] Comment:Calculation based on the??Chronic Kidney Disease Epidemiology Collaboration (CKD-EPI) equation refit??without adjustment for race. BUN/Creatinine Ratio 21.8 LAB CHEMISTRY METHOD 09/22/2024 10:56 AM EST [facility] Calcium 9.3 8.5 - 10.5 mg/dL LAB CHEMISTRY METHOD 09/22/2024 10:56 AM [facility] Blood Venous blood specimen / Unknown Venipuncture / Unknown 09/22/2024 5:04 AM EST 09/22/2024 9:36 AM EST us Nikki Moser MD LAB BLOOD ORDERABLES Final Resul t [facility] [address] [place] [address], documented in this encounter Visit Diagnoses Diagnosis Type 2 diabetes mellitus without complications (CMS/HCC) Essential (primary) hypertension Unspecified essential hypertension Schizophrenia, unspecified (CMS/HCC) Unspecified dementia, unspecified severity, without behavioral disturbance, psychotic disturbance, mood disturbance, and anxiety (CMS/HCC) Vitamin D deficiency, unspecified documented in this encounter Care Teams Wet Machine Tender Relationship Specialty Start Date End Date Nikki Moser MD [address] [place] [address] [address] [place] [address] PCP - General Geriatric Medicine 09/01/24 documented as of this encounter
--- OUTSIDE RECORDS SUMMARY | 2024-10-01 12:49 | XMS_ITS | Encounter Summary ---
[facility] [address] Address [address] [place] [address] Care Team Providers Care Coroner Transport Technician Name Role Phone Nikki Moser MD Primary Care Provider [phone] Encounter Details Date Type Department Care Team (Late st Contact Info) Description 09/08/2024 Lab Requisition [facility] - Main Lab 299 [facility] [place] [address] Nikki Moser MD [address] [place] [address] Malignant neoplasm of prostate (CMS/HCC) Social History [...] LAB CHEMISTRY METHOD 09/08/2024 1:[address] [facility] Blood Venous blood specimen / Unknown Venipuncture / Unknown 09/08/2024 6:08 AM EST 09/08/2024 11:[address] [facility] - 09/08/2024 1:21 PM EST The Siemens Advia Centaur Chemiluminescent Immunoassay is used. Results obtained with different assay methods or kits cannot be used interchangeably. Results cannot be interpreted as absolute evidence of the presence or absence of malignant disease. Nikki Moser MD LAB BLOOD ORDERABLES Final Resul t [facility] [address] [place] [address], documented in this encounter Visit Diagnoses Diagnosis Malignant neoplasm of prostate (CMS/HCC) Malignant neoplasm of prostate documented in this encounter Care Teams Coroner Transport Technician Relationship Specialty Start Date End Date Nikki Moser MD [address] [place] [address] [address] [place] [address] PCP - General Geriatric Medicine 09/01/24 documented as of this encounter
--- OUTSIDE RECORDS SUMMARY | 2024-10-01 12:49 | XMS_ITS | Clinical Summary ---
Author Organization [address] [facility] Address [address] [place] [address] Phone Care Team Providers Care Counter Hand Name Role Phone Nikki Moser MD Primary Care Provider [phone] Encounters Date Type Department Care Team Description 09/22/2024 Lab Requisition [facility] Lab [address] [place] [id number] Nikki Moser MD Type 2 diabetes mellitus without complications (CMS/HCC); Essential (primary) hypertension; Schizophrenia, unspecified (CMS/HCC); Unspecified dementia, unspecified severity, without behavioral disturbance, psychotic disturbance, mood disturbance, and anxiety (CMS/HCC); Vitamin D deficiency, unspecified 09/08/2024 Lab Requisition [facility] - Main Lab [address] [place] [phone] Nikki Moser MD Malignant neoplasm of prostate (CMS/HCC) 09/01/2024 Lab Requisition [facility] Lab [address] [place] [phone] Nikki Moser MD Hypothyroidism, unspecified; Type 2 [...] 11:45 AM EST [facility] RBC 4.70 4.50 - 5.50 M/[facility] LAB HEMETOLOGY METHOD 09/22/2024 11:45 AM [facility] Hemoglobin 13.7 13.5 - 17.5 g/dL LAB HEMETOLOGY METHOD 09/22/2024 11:45 AM [facility] Hematocrit 43.4 42.0 - 54.0 % LAB HEMETOLOGY METHOD 09/22/2024 11:45 AM [facility] MCV 92.9 79.0 - 98.0 FL LAB HEMETOLOGY METHOD 09/22/2024 11:45 AM [facility] MCH 29.3 27.0 - 32.0 pcg LAB HEMETOLOGY METHOD 09/22/2024 11:45 AM [facility] MCHC 31.6(L) 32.0 - 37.0 g/dL LAB HEMETOLOGY METHOD 09/22/2024 11:45 AM [facility] RDW 12.9 11.0 - 15.0 % LAB HEMETOLOGY METHOD 09/22/2024 11:45 AM [facility] Platelets 187 130 - 400 K/mcL LAB HEMETOLOGY METHOD 09/22/2024 11:45 AM [facility] MPV 11.0 7.0 - 11.0 FL LAB HEMETOLOGY METHOD 09/22/2024 11:45 AM [facility] NRBC 0.0 <1.0 % LAB HEMETOLOGY METHOD 09/22/2024 11:45 AM [facility] NRBC Absolute 0.00 <0.10 K/mcL LAB HEMETOLOGY METHOD 09/22/2024 11:45 AM [facility] Neutrophils Relative 50.8 % LAB HEMETOLOGY METHOD 09/22/2024 11:45 AM [facility] Lymphocytes Relative 37.8 % LAB HEMETOLOGY METHOD 09/22/2024 11:45 AM [facility] Monocytes Relative 7.6 % LAB HEMETOLOGY METHOD 09/22/2024 11:45 AM [facility] Eosinophils Relative 2.4 % LAB HEMETOLOGY METHOD 09/22/2024 11:45 AM [facility] Basophils Relative 1.1 % LAB HEMETOLOGY METHOD 09/22/2024 11:45 AM [facility] Immature Granulocytes Relative 0.3 % LAB HEMETOLOGY METHOD 09/22/2024 11:45 AM [facility] Neutrophils Absolute 3.20 1.50 - 7.00 K/mcL LAB HEMETOLOGY METHOD 09/22/2024 11:45 AM [facility] Lymphocytes Absolute 2.38 1.00 - 5.00 K/mcL LAB HEMETOLOGY METHOD 09/22/2024 11:45 AM [facility] Monocytes Absolute 0.48 0.20 - 1.00 K/mcL LAB HEMETOLOGY METHOD 09/22/2024 11:45 AM EST [facility] Eosinophils Absolute 0.15 0.00 - 0.50 K/mcL LAB HEMETOLOGY METHOD 09/22/2024 11:45 AM [facility] Basophils Absolute 0.07 0.00 - 0.20 K/mcL LAB HEMETOLOGY METHOD 09/22/2024 11:45 AM [facility] Immature Granulocytes Absolute 0.02 0.00 - 0.03 K/mcL LAB HEMETOLOGY METHOD 09/22/2024 11:45 AM [facility] Blood Venous blood specimen / Unknown Venipuncture / Unknown 09/22/2024 5:04 AM EST 09/22/2024 9:36 AM EST us Nikki Moser MD LAB BLOOD ORDERABLES Final Resul t [facility] [address] [place] [address], * (ABNORMAL) Basic metabolic panel (09/22/2024 5:04 AM EST) Sodium 139 133 - 145 mmol/L LAB CHEMISTRY METHOD 09/22/2024 10:56 AM [facility] Potassium 4.6 3.5 - 5.5 mmol/L LAB CHEMISTRY METHOD 09/22/2024 10:56 AM [facility] Chloride 104 96 - 110 mmol/L LAB CHEMISTRY METHOD 09/22/2024 10:56 AM [facility] CO2 28 21 - 32 mmol/L LAB CHEMISTRY METHOD 09/22/2024 10:56 AM [facility] Anion Gap 7 3 - 11 LAB CHEMISTRY METHOD 09/22/2024 10:56 AM [facility] Glucose 179(H) 70 - 100 mg/dL LAB CHEMISTRY METHOD 09/22/2024 10:56 AM [facility] BUN 19 5 - 25 mg/dL LAB CHEMISTRY METHOD 09/22/2024 10:56 AM [facility] Creatinine 0.87 0.70 - 1.30 mg/dL LAB CHEMISTRY METHOD 09/22/2024 10:56 AM [facility] eGFR 91 >=60 mL/min/1. 73m2 LAB CHEMISTRY METHOD 09/22/2024 10:56 AM [facility] Comment:Calculation based on the??Chronic Kidney Disease Epidemiology Collaboration (CKD-EPI) equation refit??without adjustment for race. BUN/Creatinine Ratio 21.8 LAB CHEMISTRY METHOD 09/22/2024 10:56 AM [facility] Calcium 9.3 8.5 - 10.5 mg/dL LAB CHEMISTRY METHOD 09/22/2024 10:56 AM [facility] Blood Venous blood specimen / Unknown Venipuncture / Unknown 09/22/2024 5:04 AM EST 09/22/2024 9:36 AM EST Nikki Moser MD LAB BLOOD ORDERABLES Final Resul t Performing Organization Address City/[facility]/ZIP Co de Phone Number [facility] [address] [place] [address], [place] [phone] * Prostate specific antigen diagnostic (09/08/2024 6:08 AM EST) PSA 1.68 0.00 - 4.00 ng/mL LAB CHEMISTRY METHOD 09/08/2024 1:21 PM EST [facility] Blood Venous blood specimen / Unknown Venipuncture / Unknown 09/08/2024 6:08 AM EST 09/08/2024 11:53 AM EST Narrative [facility] - 09/08/2024 1:21 PM EST The Siemens Advia Btiquesaur Chemiluminescent Immunoassay is used. Results obtained with different assay methods or kits cannot be used interchangeably. Results cannot be interpreted as absolute evidence of the presence or absence of malignant disease. Nikki Moser MD LAB BLOOD ORDERABLES Final Resul t Performing Organization Address [facility]/ZIP Co de Phone Number [facility] [address] [place] [address], [place] [phone] * (ABNORMAL) Complete blood count (09/01/2024 6:25 AM EST) WBC 5.4 4.8 - 10.8 K/mcL LAB HEMETOLOGY METHOD 09/01/2024 10:41 AM EST [facility] RBC 4.80 4.50 - 5.50 M/mcL LAB HEMETOLOGY METHOD 09/01/2024 10:41 AM EST [facility] Hemoglobin 13.8 13.5 - 17.5 g/dL LAB HEMETOLOGY METHOD 09/01/2024 10:41 AM EST [facility] Hematocrit 41.6(L) 42.0 - 54.0 % LAB HEMETOLOGY METHOD 09/01/2024 10:41 AM EST [facility] MCV 87.6 79.0 - 98.0 FL LAB HEMETOLOGY METHOD 09/01/2024 10:41 AM EST [facility] MCH 29.1 27.0 - 32.0 pcg LAB HEMETOLOGY METHOD 09/01/2024 10:41 AM EST [facility] MCHC 33.2 32.0 - 37.0 g/dL LAB HEMETOLOGY METHOD 09/01/2024 10:41 AM EST [facility] RDW 12.9 11.0 - 15.0 % LAB HEMETOLOGY METHOD 09/01/2024 10:41 AM [facility] Platelets 196 130 - 400 K/mcL LAB HEMETOLOGY METHOD 09/01/2024 10:41 AM [facility] MPV 11.0 7.0 - 11.0 FL LAB HEMETOLOGY METHOD 09/01/2024 10:41 AM EST [facility] NRBC 0.0 <1.0 % LAB HEMETOLOGY METHOD 09/01/2024 10:41 AM [facility] NRBC Absolute 0.00 <0.10 K/mcL LAB HEMETOLOGY METHOD 09/01/2024 10:41 AM [facility] Blood Venous blood specimen / Unknown Venipuncture / Unknown 09/01/2024 6:25 AM EST 09/01/2024 10:02 AM EST us Nikki Moser MD LAB BLOOD ORDERABLES Final Resul t [facility] [address] [place] [address], * Thyroid stimulating hormone (09/01/2024 6:25 AM EST) TSH 2.71 0.40 - 4.00 mcIU/mL LAB CHEMISTRY METHOD 09/01/2024 11:18 AM EST [facility] Blood Venous blood specimen / Unknown Venipuncture / Unknown 09/01/2024 6:25 AM EST 09/01/2024 10:02 AM EST us Nikki Moser MD LAB BLOOD ORDERABLES Final Resul t Performing Organization Address [facility] Co de Phone Number [facility] [address] [place] [address], [place] [phone] * (ABNORMAL) Hemoglobin A1c (09/01/2024 6:25 AM EST) Hemoglobin A1C 10.2(H) <6.5 % LAB CHEMISTRY METHOD 09/01/2024 7:02 PM [facility] Mean Bld Glu Estim. 246 mg/dL LAB CHEMISTRY METHOD 09/01/2024 7:02 PM [facility] Blood Venous blood specimen / Unknown Venipuncture / Unknown 09/01/2024 6:25 AM EST 09/01/2024 10:02 AM EST us Nikki Moser MD LAB BLOOD ORDERABLES Final Resul t Performing Organization Address [facility] de Phone Number [facility] [address] [place] [address], [place] [phone] * (ABNORMAL) Comprehensive metabolic panel (09/01/2024 6:25 AM EST) Sodium 139 133 - 145 mmol/L LAB CHEMISTRY METHOD 09/01/2024 11:01 AM [facility] Potassium 4.5 3.5 - 5.5 mmol/L LAB CHEMISTRY METHOD 09/01/2024 11:01 AM [facility] Comment:Hemolysis present Chloride 105 96 - 110 mmol/L LAB CHEMISTRY METHOD 09/01/2024 11:01 AM EST [facility] CO2 27 21 - 32 mmol/L LAB CHEMISTRY METHOD 09/01/2024 11:01 AM [facility] Anion Gap 7 3 - 11 LAB CHEMISTRY METHOD 09/01/2024 11:01 AM [facility] Glucose 174(H) 70 - 100 mg/dL LAB CHEMISTRY METHOD 09/01/2024 11:01 AM [facility] BUN 14 5 - 25 mg/dL LAB CHEMISTRY METHOD 09/01/2024 11:01 AM [facility] Creatinine 0.76 0.70 - 1.30 mg/dL LAB CHEMISTRY METHOD 09/01/2024 11:01 AM [facility] eGFR 94 >=60 mL/min/1. 73m2 LAB CHEMISTRY METHOD 09/01/2024 11:01 AM [facility] Comment:Calculation based on the??Chronic Kidney Disease Epidemiology Collaboration (CKD-EPI) equation refit??without adjustment for race. BUN/Creatinine Ratio 18.4 LAB CHEMISTRY METHOD 09/01/2024 11:01 AM [facility] Calcium 8.8 8.5 - 10.5 mg/dL LAB CHEMISTRY METHOD 09/01/2024 11:01 AM [facility] AST (SGOT) 41 10 - 42 unit/L LAB CHEMISTRY METHOD 09/01/2024 11:01 AM [facility] Comment:Hemolysis present ALT (SGPT) 50 10 - 60 unit/L LAB CHEMISTRY METHOD 09/01/2024 11:01 AM [facility] Alkaline Phosphatase 102 42 - 121 unit/L LAB CHEMISTRY METHOD 09/01/2024 11:01 AM [facility] Total Protein 6.4 6.0 - 8.0 g/dL LAB CHEMISTRY METHOD 09/01/2024 11:01 AM [facility] Albumin 3.7 3.2 - 5.0 g/dL LAB CHEMISTRY METHOD 09/01/2024 11:01 AM [facility] Total Bilirubin 0.4 0.0 - 1.4 mg/dL LAB CHEMISTRY METHOD 09/01/2024 11:01 AM EST [facility] Blood Venous blood specimen / Unknown Venipuncture / Unknown 09/01/2024 6:25 AM EST 09/01/2024 10:02 AM EST us Nikki Moser MD LAB BLOOD ORDERABLES Final Resul t [facility]) [facility] [address] [place] [address], [place] [phone] from Last 3 Months Insurance MEDICARE MEDICAID - [place] Care Teams Counter Hand Relationship Specialty Start Date End Date Nikki Moser MD [address] [place] [address] [address] [place] [address] PCP - General Geriatric Medicine 09/01/24
== END 2024-10-01 11:39 | disposition home or self-care (01) ==
PROVIDERS: PCP Internal Medicine; Visit Provider Urology
DX: C61 Malignant neoplasm of prostate (principal)

== ENCOUNTER → 2024-10-01 11:02 | Outpatient (BNVA) | payer MEDICARE, MEDICAID, SELFPAY | PROVIDERS: PCP Internal Medicine; Visit Provider Urology | DX: C61 Malignant neoplasm of prostate (principal) | CPT/HCPCS: 96402; J9217 ==

== ENCOUNTER → 2025-01-19 08:44 | Outpatient (BNVA) | payer MEDICARE, MEDICAID, SELFPAY | PROVIDERS: PCP Internal Medicine; Visit Provider Urology | DX: Z13.89 Encounter for screening for other disorder (principal) ==

== ENCOUNTER 2025-03-15 10:06 | Outpatient (AMB) | payer MEDICARE, MEDICAID, SELFPAY ==
--- NOTE | 2025-03-15 10:17 | A.OFFVIS_ITS ---
Intake Visit Reasons: follow up r/s from December Intake Note: Pt presents to the office today for a follow up. Urology meds : Fiansteride Blood Thinner asprin PVR:0 mls Local Owner Operator Truck Driver Required: No Accompanied by: Self / Same As Patient Allergies No Known Allergies Allergy (Verified 03/15/25 10:19) HPI Comments Details: Shari pleasant male. Montenegrin speaker. He is a patient Dr. Burden. He is seen for the following urologic conditions - prostate cancer - lower urinary tract symptoms Montenegrin translation provided by qualified senior medical director PSA - 09/21 3.5, 01/19 0.15 GnRh 10/19 Will need repeat GnRH in early March. Check lab work and final GnRH in early September. Prostate Cancer - 02/16 - Grade Group 3, multi core PSA 4.99 GnRH 04/02/23 Diagnosis of 02/16 Dr. Eid PSA at diagnosis 5.0 on finasteride pT1c TRUS 20gm [place] score:? 7 (4+3) (right base medial), 7 (3+4) (left mid medial and lateral, left apex lateral, right mid medial and lateral, right apex medial), 6 (3+3) (left base lateral, left apex medial, right base lateral) Tumor quantitation: Number cores positive:10 Total number of cores: 14 % of tissue involved: 40% (Cores 15-80%) Periprostatic fat inv.:Not identified Seminal vesicle inv.:Not identified Perineural inv.: Present Lymphovascular invasion: Not identified MRI: Small prostate, motion artifact, heterogeneous. No evidence of ness disease Bone Scan: Multifocal tracer avid disease involving the left thoracic cage suspicious for metastatic disease Elevated PSA PSA 11/16 7.44, 05/18 4.3, 01/17 5.0 Background diabetes [facility] Medical History Legally blind Schizoaffective disorder Dementia Rib fracture Retinitis pigmentosa Dementia Depression BPH (benign prostatic hyperplasia) Goiter Vitamin D deficiency Schizophrenia Legally blind HLD (hyperlipidemia) HTN (hypertension) T2DM (type 2 diabetes mellitus) Surgical History History of amputation of finger Family History Father Blindness Mother No problems noted. Social History Household Members: Caregiver Housing: House Alcohol intake: former Comment: sitter at bedside Patient Tobacco Use Status: Former Tobacco user Cigarette Packs Per Day: 3 Years Smoked: 40 Advance Directives Date on File: 08/12/23 service: No Review of Systems Const Denies chills and Denies fever(s) Card Reports no additional complaints and Denies syncope Resp Denies cough GI Denies abdominal pain and Denies heartburn Reports as per HPI and Denies change in libido Neuro Denies syncope Psych Denies change in libido Endo Denies change in libido Physical Exam Const General: cooperative, healthy appearing, comfortable and no acute distress Orientation/consciousness: patient oriented x3 HEENT Face and sinus: Yes normal facial exam Mouth: moist mucous membranes Neck Neck: Yes normal visual inspection, Yes full ROM and Yes trachea midline Chest Chest palpation & inspection: normal inspection of the chest Resp Effort & Inspection: normal respiratory effort, able to speak in complete sentences and no respiratory distress GI Inspection: Yes normal to inspection Back/Spine/Pelvis Cervical Spine: normal cervical lordosis Thoracic/Lumbar Spine: thoracic and lumbar spine normal to inspection Skin General skin exam: no rashes or lesions noted Neuro General: patient oriented x3, gait normal, tone normal and moves all extremities Extrem General: Yes normal to inspection and Yes capillary refill normal Assessment & Plan Assessment & Plan (1) Prostate cancer: Code(s): C61 - Malignant neoplasm of prostate Category: Medical (2) Rising PSA following treatment for malignant neoplasm of prostate: Code(s): R97.21 - Rising PSA following treatment for malignant neoplasm of prostate Category: Medical Plan [facility] Six-month follow-up repeat GnRH labs Orders: Orders Prostate Specific Antigen 6 Months C61 - Malignant neoplasm of prostate Testosterone, Total 6 Months C61 - Malignant neoplasm of prostate Medications: Changed From finasteride 5 mg PO DAILY C61 - Malignant neoplasm of prostate To finasteride 5 mg PO DAILY 90 tabs 2RF 90 days C61 - Malignant neoplasm of prostate Patient Instructions: This note is constructed using voice recognition software. While every effort has been made to ensure accuracy microchip specialist errors may have been included. Imaging studies, laboratory and physical exam results were discussed and reviewed in detail. No major barriers to patient understanding were identified. An opportunity to ask questions regarding the treatment plan was provided. All questions were answered. The patient expressed understanding and agreement with the above treatment plan. The patient is aware they should contact our office by phone for worsening of their current condition or the appearance of new urologic symptoms. Compliance is encouraged with any medications and followup testing that is ordered. It is a privilege to participate in the urologic care of your patient. If you have any questions or concerns regarding treatment for the above conditions, or other urologic issues, please do not hesitate to contact me. The office telephone contact is [phone]. Sincerely, Dr Kike Eid MD, [facility] [employer] [facility] - Urology Compassionate Specialist Care for the Genitourinary System Coding Level of Care Code Est Pt Level 3 (89829) Complex EM visit Add On G2211 Diagnoses Prostate cancer C61 Rising PSA following treatment for malignant neoplasm of prostate R97.21
--- OUTSIDE RECORDS SUMMARY | 2025-03-15 11:18 | XMS_ITS | Patient Health Record ---
Author Organization [facility] Address [address] [place] [address] Care Team Providers Care Marbleizer Name Role Phone Juanyolga Millie Primary Care Provider UnavailChavez Soares Jr Unavailable Allergies Allergen (clinical drug ingredient) Drug/Non Drug Allergy documented on EMR Reaction Allergy Type Onset Date Status lisinopril Lisinopril Unknown Drug Allergy Activ e Reason For Referral No Information Medications Medication SIG (Take, Route, Frequency, Duration) Notes [...] Calcium 40 MG Oral for 90 Active Immunizations Vaccine Route Administration Date Status Comme nts Influenza Unknown 06/19/2021 Administered Social History Tobacco Use: Social History Observation Description Date Details (start date - stop date) Former Smoker NA - NA Tobacco Use/Smoking Question Answer Notes Patient is a former smoker Alcohol Screen Question Answer Notes Did you have a drink containing alcohol in the p ast year? No Points 0 Interpretation Negative Problems Problem Type SNOMED Code ICD Code Onset Dates Problem Status W/U Status Risk Notes Problem 663079468 Colon cancer screening (Z12.11) Active confirmed Problem [id number] oysterman (current) use of insulin (Z79.4) Active confirmed Plan Of Treatment Future Test Test Name Order Date COLONOSCOPY 03/28/2022 Insurance Providers Payer Name Payer Address Payer Phone Subscriber Number Group Number Insured Name Patient Relationship to Insured Coverage Start Date Coverage End Date A[employer] Medicare Advantage Plan [address] [address] [place] [address] [id number] AUG[place]US REYNOSO Self - patient is the insured Medical (General) History Medical History History ICD Code Diabetes mellitus type 2 BPH Depression Elevated cholesterol Dementia Retinitis pigmentosa Rib fracture Surgical History Surgery Date(Month/Year)
--- OUTSIDE RECORDS SUMMARY | 2025-03-15 11:18 | XMS_ITS | Encounter Summary ---
Author Organization [facility] Address [address] [place] [address] Care Team Providers Care Dermatopathologist Name Role Phone Nikki Moser MD Primary Care Provider [phone] Encounter Details Date Type Department Care Team (Late st Contact Info) Description 01/20/[address] [facility] - Main Lab [address] [facility] [place] [address] Nikki Moser MD [address] [place] [address] Malignant neoplasm of prostate (CMS/HCC V24, CMS/[facility] V28) Social History Tobacco Use Types Packs/Day Years [...] Diagnosis Comments PROSTATE SPECIFIC ANTIGEN DIAGNOSTIC Routine 01/21/2025 8:11 AM EDT Malignant neoplasm of prostate (CMS/HCC V24, CMS/HCC V28) documented in this encounter Results * Prostate specific antigen diagnostic (01/21/2025 8:11 AM EDT) PSA 0.15 0.00 - 4.00 ng/mL LAB CHEMISTRY METHOD 01/21/2025 12:39 PM EDT [facility] ([facility]) [facility] Blood Venous blood specimen / Unknown Venipuncture / Unknown 01/21/2025 8:11 AM EDT 01/21/2025 11:30 AM EDT Narrative [facility] ([facility] - 01/21/2025 12:39 PM EDT The Siemens Advia Centaur Chemiluminescent Immunoassay is used. Results obtained with different assay methods or kits cannot be used interchangeably. Results cannot be interpreted as absolute evidence of the presence or absence of malignant disease. Nikki Moser MD LAB BLOOD ORDERABLES Final Resul t [facility] [address] [place] [address], documented in this encounter Visit Diagnoses Diagnosis Malignant neoplasm of prostate (CMS/HCC V24, CMS/HCC V28) Malignant neoplasm of prostate documented in this encounter Care Teams Dermatopathologist Relationship Specialty Start Date End Date Nikki Moser MD [address] [place] [address] [address] [place] [address] PCP - General Geriatric Medicine 09/01/24 documented as of this encounter
--- OUTSIDE RECORDS SUMMARY | 2025-03-15 11:18 | XMS_ITS | Clinical Summary ---
Author Organization [facility] Address [address] [place] [phone] Phone Care Team Providers Care Foreign Language Stenographer Name Role Phone Millie Burden MD Primary Care Provider Allergies No known active allergies Medications metFORMIN (GLUCOPHAGE) 1000 MG tablet Take 1,000 mg by mouth 2 (two) times a day with meals. Active atorvastatin (LIPITOR) 40 MG tablet Take 40 mg by mouth daily. Active lisinopril (PRINIVIL,ZESTRI L) 2.5 MG tablet Take 2.5 mg by mouth daily. Active escitalopram oxalate (LEXAPRO) 10 MG tablet Take 10 mg by mouth daily. Active tiZANidine (ZANAFLEX) 2 MG tablet Take 2 mg by mouth every 6 (six) hours as needed. Active aspirin 81 MG EC tablet Take 81 mg by mouth daily. Active glipiZIDE (GLUCOTROL) 10 MG tablet Take 10 mg by mouth 2 (two) times a day before meals. Active Family History Medical History Relation Comments Retinitis pigmentosa Brother Relation Status Comments Brother Social History Tobacco Use Types Packs/Day Years Used Date Smoking Tobacco: Never Smokeless Tobacco: Never Alcohol Use Standard Drinks/Week Comments No 0 (1 standard drink = 0.6 oz pur e alcohol) Education Answer Date Recorded Are you interested in more education? Not on robyn e 11/22/2022 Are you concerned about learning? Not on file 11/22/2022 No 11/22/2022 No 11/22/2022 Digital Access Answer Date Recorded No 12/23/2022 No 12/23/2022 No 12/23/2022 Reliable internet access at home? Not on file 12/23/2022 Device with a working camera? Not on file Sex and Gender Information Value Date Recorded Sex Assigned at Not on file Legal Sex Male 11:54 AM EDT Gender Identity Not on file Sexual Orientation Not on file Plan of Treatment Health Maintenance Due Date Last Done Comments CREATININE LEVEL 1950 LIPID PANEL 1950 POTASSIUM LEVEL 1950 DEPRESSION SCREENING 1962 HEPATITIS C SCREENING 1968 COLOGUARD 1995 COLONOSCOPY 1995 COLORECTAL CANCER SCREENING 1995 FIT TEST 1995 FOBT 1995 SIGMOIDOSCOPY 1995 VIRTUAL COLONOSCOPY 1995 ZOSTER VACCINES (1 of 2) 2000 COVID-19 VACCINE (2 - 2023-2 5 season) 2024 11/30/2020 RSV VACCINE (1 - 1-dose 75+ series) 2025 Adult Td,Tdap Booster 07/03/2028 07/03/2018 , 05/23/2008 SMOKING STATUS SCREENING (On ce After 26 Yrs) Completed 04/01/2017 PNEUMOCOCCAL VACCINES (50+ years) Completed 07/04/2018, 07/22/2015, 06/01/2009 HEPATITIS A VACCINES Aged Out No long er eligible based on patient's age to complete this topic HIB VACCINES Aged Out No longer eligi ble based on patient's age to complete this topic MENINGOCOCCAL VACCINES (ACWY) Aged Out No longer eligible based on patient's age to complete this topic MENINGOCOCCAL VACCINES (B) Aged Out N o longer eligible based on patient's age to complete this topic Medical Devices Not on file Insurance [address] [place] [address] [facility] [address] [place] [address] [facility] MED[facility] REPLACEMENT [address] [place] [id number] [facility] MED[facility]ARE REPLACEMENT [address] [place] [address] [facility]PL[address]EMENT [address] [place] [address] [facility] REPL[facility]EMENT [address] [place] [address] [facility] MEDICARE REPLACEMENT [place] [id number] [address] [place] [address] [facility] MED[facility] REPLACEMENT Member Subscriber Plan / Payer (Ef fective 2016-Present) Name:Kana Todd Relation to Subscriber:Self Name:Kana Todd Payer ID:[id number] (NAIC) Type:Medicare Address: [place] [id number] [facility] MEDIC[facility] REPLACEMENT Member Subscriber Plan / Payer (Ef fective 2016-Present) Name:Kana Todd Relation to Subscriber:Self Name:Kana Todd Payer ID:[id number] (NAIC) Type:Medicare Address: [place] [id number] [place] [id number] Care Teams Foreign Language Stenographer Relationship Specialty Start Date End Date Millie Burden MD [address] [place] [address] [place] [phone] PCP - General Internal Medicine 03/17/17 Additional Source Comments The information contained in this document represents components of the legal health record. It is not the complete legal health record.[facility]
== END 2025-03-15 11:04 | disposition home or self-care (01) ==
LOC: HO.HUSH 10:06
PROVIDERS: PCP Internal Medicine; Visit Provider Urology
DX: C61 Malignant neoplasm of prostate (principal); R97.21 Rising PSA following treatment for malignant neoplasm of prostate; Z13.9 Encounter for screening, unspecified
CPT/HCPCS: 99213; G2211

== ENCOUNTER → 2025-03-15 10:06 | Outpatient (BNVA) | payer MEDICARE, MEDICAID, SELFPAY | PROVIDERS: PCP Internal Medicine; Visit Provider Urology | DX: C61 Malignant neoplasm of prostate (principal); R97.21 Rising PSA following treatment for malignant neoplasm of prostate | CPT/HCPCS: 51798; 81003; 99212 ==

== ENCOUNTER 2025-03-30 11:21 | Outpatient (AMB) | payer MEDICARE, MEDICAID, SELFPAY ==
--- NOTE | 2025-03-30 11:33 | AM.OFFVISNUR ---
Intake Visit Reasons: [facility] Allergies No Known Allergies Allergy (Verified 03/15/25 10:19) Office Meds Eligard (6 month) 45 mg (6 month) subcutaneous syringe Performing Provider: Kike Eid MD Performing Location: [facility] [place] [facility] Administered by: Casie Bauman RN on 03/30/25 11:33 Dose Route Admin Location Dispensed Lot Number Expiration Date [facility] Auditor Supervisor 45 mg subcut 45 mg [id number] 03/28/26 81325-711-23 [employer]. Total Dispensed Waste 45 mg 0 % Assessment & Plan Assessment & Plan Orders: Orders AMB Leuprolide Injection - Practice Supplied Today C61 - Malignant neoplasm of prostate, R97.21 - Rising PSA following treatment for malignant neoplasm of prostate Coding
== END 2025-03-30 11:40 | disposition home or self-care (01) ==
LOC: HO.HUSH 11:21
PROVIDERS: PCP Internal Medicine; Visit Provider Urology
DX: C61 Malignant neoplasm of prostate (principal); R97.21 Rising PSA following treatment for malignant neoplasm of prostate

== ENCOUNTER → 2025-03-30 11:21 | Outpatient (BNVA) | payer MEDICARE, MEDICAID, SELFPAY | PROVIDERS: PCP Internal Medicine; Visit Provider Urology | DX: Z51.11 Encounter for antineoplastic chemotherapy (principal); C61 Malignant neoplasm of prostate; R97.21 Rising PSA following treatment for malignant neoplasm of prostate | CPT/HCPCS: 96402; J9217 ==